=== PATIENT | male | born 1970 | race Caucasian/White ===

== ENCOUNTER 2020-06-28 14:11 | Outpatient (REF) | payer OTHER, SELFPAY | END 2020-06-28 14:12 | disposition home or self-care (01) | LOC: HO.LAB 14:11 | PROVIDERS: Visit Provider Internal Medicine | DX: Z20.822 Contact with and (suspected) exposure to COVID-19 (principal) | CPT/HCPCS: 36415; C9803; U0003 ==

== ENCOUNTER → 2020-07-06 08:42 | Outpatient (BNVA) | payer OTHER, SELFPAY | PROVIDERS: PCP Internal Medicine; Visit Provider Nurse Practitioner Gerontology ==

== ENCOUNTER 2020-08-09 13:19 | Outpatient (RCR) | payer OTHER, SELFPAY ==
[2021-06-14 10:04] LABS: MANUAL DIFF FLAG NO
[2021-06-14 10:07] LABS: Basophils Percent Auto 0.4 % (0-2); Eosinophils Absolute Auto 0.2 X10*3/uL (0.0-0.4); Eosinophils Percent Auto 2.3 % (0-4); Hematocrit 33.7 % (42.0-52.0); Hemoglobin 10.4 g/dl (14.0-18.0); Imm Gran Abs Auto 0.05 X10*3/uL (0.00-0.03); Imm Gran Pct Auto 0.7 % (0.0-0.4); Lymphocytes Absolute Auto 2.5 X10*3/uL (1.2-4.9); Lymphocytes Percent Auto 33.2 % (20-40); Mean Corpuscular HGB Conc 30.9 g/dl (31.0-36.0); Mean Corpuscular Hemoglobin 28.9 pg (27.0-33.0); Mean Corpuscular Volume 93.6 fL (80.0-98.0); Mean Platelet Volume 9.2 fL (9.4-12.4); Monocytes Absolute Auto 0.6 X10*3/uL (0.1-1.2); Monocytes Percent Auto 8.3 % (2-11); Neutrophils Absolute Auto 4.1 x10*3/uL (2.0-8.3); Neutrophils Percent Auto 55.1 % (45-73); Platelet Count 275 X10*3/uL (160-400); Red Cell Distribution Width 13.1 % (11.0-16.0); White Blood Count 7.4 X10*3/uL (4.8-10.8)
[2021-06-14 10:24] LABS: Alanine Aminotransferase 12 U/L (0-40); Albumin Level 3.5 g/dL (3.5-5.0); Alkaline Phosphatase 98 U/L (39-117); Anion Gap 12 (12-20); Aspartate Amino Transferase 13 U/L (5-37); Bilirubin Total 0.7 mg/dL (0.0-1.0); Blood Urea Nitrogen 23 mg/dL (9-16); Carbon Dioxide 28 mmol/L (22-29); Chloride 106 mmol/L (96-108); Cholesterol 133 mg/dL; Estimated Glomerular Filt Rate 27; Glucose Fasting 174 mg/dL (60-99); HDL Cholesterol 44 mg/dL; LDL Cholesterol Calculated 63 mg/dl; Potassium 4.6 mmol/L (3.3-5.1); Sodium 141 mmol/L (135-145); Total Protein 6.8 g/dL (6.5-8.0); Triglycerides 132 mg/dL
[2021-06-14 10:31] LABS: Estimated Average Glucose 203 mg/dL; Hemoglobin A1c % 8.7 %
[2021-06-14 10:44] LABS: TSH reflex Free T4 1.73 uIU/mL (0.32-4.0)
[2021-06-14 10:48] LABS: HBS Num1 1.52 mIU/mL (0-7.99); HIV AB/AG Nonreactive (Nonreactive); HIV Num 1 0.12 S/CO (0.00-0.99); Hepatitis B Surface Antigen Negative (Negative); ~HepC Num1 0.16 S/CO (0.00-0.79); ~Hepatitis B Surface Antibody NONREACTIVE (Nonreactive); ~Hepatitis C Antibody Nonreactive (Nonreactive)
[2021-06-14 10:53] LABS: Hepatitis B Core Antibody Nonreactive (Nonreactive)
[2021-06-14 12:42] LABS: Creatinine Urine 210.28 mg/dL
[2021-06-14 12:53] LABS: Appearance Urine CLEAR; Color Urine YELLOW; Glucose Urine UA 250 MG/DL (NEG); Leukocyte Esterase Urine NEG (NEG); Nitrite Urine NEG (NEG); PH 5.5 (5.0-8.0); Specific Gravity - Urine >= 1.030 (1.005-1.025); UACC Culture Trigger NO; Urine Blood NEG (NEG); Urine Ketones NEG (NEG); Urine Protein 2+ MG/DL (NEG-TRACE)
[2021-06-14 13:12] LABS: Squamous Epithelial Cell Urine 2+ /LPF
[2021-06-14 13:13] LABS: Amorphous Sediment Urine 1+ /LPF; Bacteria Urine 1+ /LPF
[2021-06-14 13:14] LABS: Hyaline Casts Urine 0-2 /LPF; RBC Urine 0 /HPF (0); WBC Urine 0-2 /HPF (0-4)
[2021-06-14 14:24] LABS: CT PCR NOT DETECTED (Not Detect.); NG PCR NOT DETECTED (Not Detect.)
[2021-06-15 08:38] LABS: HBc Num1 0.51 S/CO (0.00-0.79); Hepatitis A Antibody IgM 0.22 Index (0-0.79); ~Hepatitis A Antibody IgM Nonreactive (Nonreactive)
== END 2021-07-03 13:35 | disposition home or self-care (01) ==
LOC: HO.WCC 13:19
PROVIDERS: Nurse Practitioner Acute Care; PCP Internal Medicine; Visit Provider Surgery
DX: E11.621 Type 2 diabetes mellitus with foot ulcer (principal); L97.512 Non-pressure chronic ulcer of other part of right foot with fat layer exposed; J11.1 Influenza due to unidentified influenza virus with other respiratory manifestations; L53.9 Erythematous condition, unspecified; Z79.4 Long term (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 of insulin; Z79.2 Long term (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 of antibiotics; Z79.891 Long term (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 of opiate analgesic
CPT/HCPCS: 10061; 11042; 11043; 15275; 36415; 80053; 80061; 81001; 82043; 83036; 84443; 85025; 86704; 86706; 86709; 86803; 87071; 87077; 87186; 87205; 87340; 87389; 87491; 87591; 99212; 99213; Q4106

== ENCOUNTER 2020-12-05 09:36 | Outpatient (REF) | payer OTHER, SELFPAY ==
--- NOTE | ~2020-12-05 | XR_ITS ---
EXAMINATION: XR TOES, RIGHT CLINICAL INFORMATION: Fifth metatarsal head with question of osteomyelitis. COMPARISON: None TECHNIQUE: 3 views of the right toes were obtained. FINDINGS: Soft tissue swelling is noted overlying the region of the 5th metatarsal phalangeal joint with ulceration seen. No bony changes are seen to suggest osteomyelitis. Some mild degenerative changes present at the metatarsal phalangeal joint of the 3rd toe with some mild lateral subluxation. In addition, degenerative changes are present at the DIP joint of the 3rd digit as well with osteophytes. XR/XR toe RT min 2V IMPRESSION: 1. No evidence of osteomyelitis. 2. Degenerative changes present in the 3rd toe.
[2020-12-05 10:18] LABS: MANUAL DIFF FLAG NO
[2020-12-05 10:37] LABS: Estimated Average Glucose 189 mg/dL; Hemoglobin A1c % 8.2 %
[2020-12-05 10:40] LABS: Alanine Aminotransferase 16 U/L (0-40); Albumin Level 4.1 g/dL (3.5-5.0); Alkaline Phosphatase 99 U/L (39-117); Anion Gap 13 (12-20); Aspartate Amino Transferase 18 U/L (5-37); Bilirubin Total 0.7 mg/dL (0.0-1.0); Blood Urea Nitrogen 32 mg/dL (9-16); Calcium 9.3 mg/dL (8.4-10.2); Carbon Dioxide 25 mmol/L (22-29); Chloride 108 mmol/L (96-108); Cholesterol 170 mg/dL; Estimated Glomerular Filt Rate 24; Glucose Fasting 148 mg/dL (60-99); HDL Cholesterol 65 mg/dL; LDL Cholesterol Calculated 88 mg/dl; Potassium 5.7 mmol/L (3.3-5.1); Sodium 140 mmol/L (135-145); Total Protein 6.9 g/dL (6.5-8.0); Triglycerides 88 mg/dL
[2020-12-05 10:41] LABS: Basophils Absolute Auto 0.1 X10*3/uL (0.0-0.2); Basophils Percent Auto 0.6 % (0-2); Eosinophils Absolute Auto 0.2 X10*3/uL (0.0-0.4); Eosinophils Percent Auto 3.1 % (0-4); Hemoglobin 12.2 g/dl (14.0-18.0); Imm Gran Abs Auto 0.02 X10*3/uL (0.00-0.03); Imm Gran Pct Auto 0.3 % (0.0-0.4); Lymphocytes Absolute Auto 1.9 X10*3/uL (1.2-4.9); Lymphocytes Percent Auto 24.6 % (20-40); Mean Corpuscular HGB Conc 31.3 g/dl (31.0-36.0); Mean Corpuscular Hemoglobin 29.5 pg (27.0-33.0); Mean Corpuscular Volume 94.2 fL (80-98); Mean Platelet Volume 10.5 fL (9.4-12.4); Monocytes Absolute Auto 0.9 X10*3/uL (0.1-1.2); Monocytes Percent Auto 11.4 % (2-11); Neutrophils Absolute Auto 4.6 X10*3/uL (2.0-8.3); Platelet Count 252 X10*3/uL (160-400); Red Blood Count 4.14 X10*6/uL (4.60-5.80); Red Cell Distribution Width 12.7 % (11.0-16.0); White Blood Count 7.7 X10*3/uL (4.8-10.8)
[2020-12-05 11:05] LABS: TSH reflex Free T4 1.06 uIU/mL (0.32-4.0)
[2020-12-05 11:12] LABS: Glucose Urine UA 100 MG/DL (NEG); Leukocyte Esterase Urine NEG (NEG); Nitrite Urine NEG (NEG); PH 5.5 (5.0-8.0); Specific Gravity - Urine >= 1.030 (1.005-1.025); Urine Blood NEG (NEG); Urine Ketones NEG (NEG); Urine Protein 2+ MG/DL (NEG-TRACE)
[2020-12-05 11:18] LABS: Appearance Urine HAZY; Color Urine YELLOW
[2020-12-05 11:58] LABS: Creatinine Urine 290.84 mg/dL; Microalbum/Creatinine Ratio Ur 255.8 ug/mg cr
[2020-12-05 12:03] LABS: Amorphous Sediment Urine 2+ /LPF; Mucus Urine TRACE /LPF; RBC Urine 0 /HPF (0); Squamous Epithelial Cell Urine 2+ /LPF
[2020-12-05 15:14] LABS: C Reactive Protein 0.94 mg/dL (< or = 0.50)
[2020-12-06 08:16] LABS: LDL Cholesterol Direct 84 mg/dL (<100)
== END 2020-12-05 09:37 | disposition home or self-care (01) ==
LOC: HO.LAB 09:36
PROVIDERS: PCP Internal Medicine; Visit Provider Internal Medicine
DX: E11.22 Type 2 diabetes mellitus with diabetic chronic kidney disease (principal); I12.9 Hypertensive chronic kidney disease with stage 1 through stage 4 chronic kidney disease, or unspecified chronic kidney disease; N18.30 Chronic kidney disease, stage 3 unspecified; D63.1 Anemia in chronic kidney disease; E78.00 Pure hypercholesterolemia, unspecified; E66.9 Obesity, unspecified; E55.9 Vitamin D deficiency, unspecified
CPT/HCPCS: 36415; 73660; 80053; 80061; 81001; 82043; 82306; 83036; 83721; 84134; 84443; 85025; 86140

== ENCOUNTER 2021-01-10 12:47 | Outpatient (AMB) | payer OTHER, SELFPAY ==
--- NOTE | 2021-01-10 12:49 | A.OFFPC_ITS ---
Vital Signs 01/10/21 12:52 Height 5 ft 7 in Weight 236 lb BMI 36.9 BP 142/80 H Pulse 88 Pulse Source Pulse Oximeter Temp 96.6 F L Pulse Oximetry (%) 98 Oxygen Delivery Method Room Air HPI 6 weeks f/u depression, anxiety HPI Details Patient comes in today for his follow up visit States that he is still experiencing increased anxiety and feels depressed Thinks that his Rx is helping but feels it is still not enough; relates going through a lot of stressful situations lately He denies any headaches or dizziness Denies any chest pains, no SOB No nausea/vomiting, no abdominal pain No change in bowel habits noted He would also like to have his pain med Rx refilled today [facility] Medical History (Updated 09/04/23 @ 17:41 by Michael Garcia MD) Right foot ulcer Anxiety History of foot ulcer Obesity (BMI 30-39.9) Depression Rotator cuff arthropathy of left shoulder Vitamin D deficiency Allergic rhinitis Anemia Pure hypercholesterolemia Benign essential hypertension Diabetic polyneuropathy Type 2 diabetes mellitus with diabetic chronic kidney disease Erectile dysfunction Type 2 diabetes mellitus with hyperglycemia, with long-term current use of insulin Type 2 diabetes mellitus with diabetic polyneuropathy Type 2 diabetes mellitus with chronic kidney disease 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 LDL goal <70 Surgical History History of nasal surgery Family History Father Lung cancer Mother Hypertension Coronary artery disease CVD (cardiovascular disease) TIA (transient ischemic attack) Sister Diabetes Maternal Uncle Diabetes Other Mental health problem Social History Household Members: None Housing: Apartment Do you presently have visiting nurse or other home services: No Alcohol intake: current Alcohol intake frequency: holidays/special occasions only Patient Tobacco Use Status: Never used Tobacco e-Cigarette/Vaping Use: Never Used Second Hand Smoke Exposure: Yes service: No Current occupational status: unemployed Cognitive needs: No Hearing needs: No Vision needs: No Questionnaire PHQ-9 (HOL/HEY) Over the last 2 weeks, how often have you been bothered by any of the following problems? 1. Little interest or pleasure in doing things: several days 2. Feeling down, depressed, or hopeless: more than half the days 3. Trouble falling or staying asleep, or sleeping too much: not at all 4. Feeling tired or having little energy: not at all 5. Poor appetite or overeating: not at all 6. Feeling bad about yourself - or that you are a failure or have let yourself or your family down: more than half the days 7. Trouble concentrating on things, such as reading the newspaper or watching t elevision: not at all 8. Moving or speaking so slowly that other people could have noticed. Or the opposite - being so fidgety or restless that you have been moving around a lot more than usual: not at all 9. Thoughts that you would be better off or of hurting yourself in some way: not at all Total score: 5 Depression Screening Interpretation: Positive Depression Screening Follow-up: Existing condition and In treatment (dose adjustment) 52993 - PHQ-9 Billing: Yes Source: Developed by Drs. Zay Babb, Genesis Aiken, Tony Garcia and colleagues, with an educational phoenix from [employer]. Thrive Questionnaire Date Thrive assessed: 01/10/21 I am a: Patient What is your living situation today?: I have a steady place to live Within the past 12 months, did the food you bought not last and you didn't have the money to get more?: Never true Within the past 12 months, did you worry whether your food would run out before you got money to buy more?: Never true Do you have trouble paying for medicines?: No Do you have trouble getting transportation to medical appointments?: No Do you have trouble paying your heating and electricity bill?: No Do you have trouble taking care of your child, family member or friend?: No Do you have trouble with day-to-day activities such as bathing, preparing meals, shopping, managing finances, etc.?: No Are you currently unemployed and looking for a job?: No Are you interested in more education?: No Currently or been in a relationship where the following occur: no concerns reported AUDIT C Alcohol Use Questionnaire (AUDIT-C) 1. How often do you have a drink containing alcohol?: Monthly or less 2. How many drinks containing alcohol do you have on a typical day when you are drinking?: 1 or 2 3. How often do you have six or more drinks on one occasion?: Never Total Score: 1 Score Reviewed/Action Taken: Yes ANAHI-7 AMB Questionnaire ANAHI-7 Feeling nervous, anxious, or on edge: 0 = Not at all Not being able to stop or control worryin = Not at all Worrying too much about different things: 0 = Not at all Trouble relaxin = Not at all Being so restless that it is hard to sit still: 0 = Not at all Becoming easily annoyed or irritable: 0 = Not at all Feeling afraid as if something awful might happen: 0 = Not at all Total ANAHI-7 score (0-4 normal; 5-9 mild; 10-14 moderate; 15-21 severe): 0 Source: Developed by Drs. Zay Babb, Genesis Aiken, Tony Garcia and colleagues, with an educational phoenix from [employer]. Review of Systems Const Denies chills, Reports difficulty sleeping, Reports fatigue, Denies fever(s) and Denies headache(s) ENT Denies dysphagia, Denies dizziness, Denies headache(s), Denies neck pain, Denies odynophagia and Denies sore throat Card Denies chest pain, Denies palpitations and Denies dyspnea Resp Denies cough and Denies dyspnea GI Denies abdominal pain, Denies constipation, Denies dysphagia, Denies heartburn, Denies diarrhea, Denies nausea, Denies odynophagia and Denies vomiting Denies dysuria, Denies nocturia and Denies urinary frequency Musc Denies back pain and Denies neck pain Skin/Breast Denies rash Neuro Denies dizziness and Denies headache(s) Psych Reports anxiety (increasing) and Reports depression (increasing) Endo Reports fatigue and Denies palpitations Physical exam (Primary Care) Vital Signs: Last Vital Signs Temp 96.6 F L 01/10/21 12:52 Pulse 88 01/10/21 12:52 BP 142/80 H 01/10/21 12:52 Pulse Ox 98 01/10/21 12:52 Oxygen Delivery Method Room Air 01/10/21 12:52 BMI result Body Mass Index 36.9 Tobacco/Smoking Status: Tobacco use Status Tobacco use date assessed 01/10/21 01/10/21 12:56 Patient Tobacco Use Status Never used Tobacco 01/10/21 12:56 PHQ-9: Total score: 5 Depression Screening Interpretation: Positive Depression Screening Follow-up: Existing condition and In treatment (dose adjustment) Const General: no acute distress and alert HENMT Ears: TM's normal bilaterally and EAC's normal Throat: Yes posterior oropharynx normal and Yes tonsils normal (no TP congestion noted) Neck Neck: Yes no lymphadenopathy and Yes supple Thyroid: Thyroid normal Resp Auscultation: clear to auscultation bilaterally, no rales and no wheezes Cardio Rate: regular rate Rhythm: regular rhythm Heart sounds: no murmurs GI Palpation (GI): Soft to palpation and nontender Auscultation: normal bowel sounds General: Yes no CVA tenderness Back/Spine/Pelvis Back: no CVA tenderness Thoracic/Lumbar Spine: No lumbar spinal tenderness Skin Rashes: no rashes Extrem General: Yes no clubbing, cyanosis or edema Assessment and Plan Assessment & Plan (1) Diabetic polyneuropathy: Code(s): E11.42 - Type 2 diabetes mellitus with diabetic polyneuropathy Qualifiers: Diabetes mellitus type: type 2 Qualified Code(s): E11.42 - Type 2 diabetes mellitus with diabetic polyneuropathy Plan: Continue Oxycodone 5 mg 2 to 3 times a day ONLY as needed for severe pain - Rx refilled (2) Anxiety: Code(s): F41.9 - Anxiety disorder, unspecified Plan: Will increase his Citalopram to 40 mg QD Follow up with psychiatry as scheduled (3) Depression: Code(s): F32.9 - Major depressive disorder, single episode, unspecified Qualifiers: Depression Type: unspecified Qualified Code(s): F32.9 - Major depressive disorder, single episode, unspecified Plan: Will increase his Citalopram to 40 mg QD Follow up with psychiatry as scheduled Plan Follow up in 2 months Medications: Changed From citalopram 20 mg PO DAILY 30 tabs 2RF F41.9 - Anxiety disorder, unspecified, F32.9 - Major depressive disorder, single episode, unspecified To citalopram 40 mg PO DAILY 30 tabs 2RF 30 days F41.9 - Anxiety disorder, unspecified, F32.9 - Major depressive disorder, single episode, unspecified Refilled oxycodone 5 mg PO BID-TID PRN 84 tabs 0RF severe pain 28 days Coding Level of Care Code Est Pt Level 3 (03016) Diagnoses Diabetic polyneuropathy associated with type 2 diabetes mellitus E11.42 Diabetes mellitus type: type 2 Anxiety F41.9 Depression, unspecified depression type F32.9 Depression Type: unspecified Additional Codes PHQ-9 - 84124 - PHQ-9 Billing: Yes ([id number])
[2021-01-10 12:52] VITALS: BP 142/80; PULSE 88; TEMP 35.9; O2SAT 98; BMI 36.9
== END 2021-01-10 13:51 | disposition home or self-care (01) ==
LOC: HO.HMGH 12:47
PROVIDERS: PCP Internal Medicine; Visit Provider Internal Medicine
DX: E11.42 Type 2 diabetes mellitus with diabetic polyneuropathy (principal); F41.9 Anxiety disorder, unspecified; F32.9 Major depressive disorder, single episode, unspecified
CPT/HCPCS: 99499

== ENCOUNTER 2021-03-05 09:51 | Outpatient (REF) | payer OTHER, SELFPAY ==
[2021-03-05 11:19] LABS: Alanine Aminotransferase 17 U/L (0-40); Albumin Level 3.8 g/dL (3.5-5.0); Alkaline Phosphatase 109 U/L (39-117); Anion Gap 13 (12-20); Aspartate Amino Transferase 16 U/L (5-37); Bilirubin Total 0.3 mg/dL (0.0-1.0); Blood Urea Nitrogen 26 mg/dL (9-16); Calcium 9.3 mg/dL (8.4-10.2); Carbon Dioxide 26 mmol/L (22-29); Chloride 107 mmol/L (96-108); Cholesterol 170 mg/dL; Estimated Glomerular Filt Rate 29; Glucose Fasting 195 mg/dL (60-99); HDL Cholesterol 53 mg/dL; LDL Cholesterol Calculated 96 mg/dl; Potassium 5.6 mmol/L (3.3-5.1); Sodium 140 mmol/L (135-145); Total Protein 6.8 g/dL (6.5-8.0); Triglycerides 107 mg/dL
[2021-03-05 11:22] LABS: Vitamin D 25-OH Total 24.5 ng/mL (>30)
[2021-03-05 12:46] LABS: Appearance Urine CLEAR; Color Urine YELLOW; Glucose Urine UA >=1000 MG/DL (NEG); Leukocyte Esterase Urine NEG (NEG); Nitrite Urine NEG (NEG); Specific Gravity - Urine 1.025 (1.005-1.025); UACC Culture Trigger NO; Urine Blood NEG (NEG); Urine Ketones NEG (NEG); Urine Protein 2+ MG/DL (NEG-TRACE)
[2021-03-05 14:11] LABS: RBC Urine 0 /HPF (0); Squamous Epithelial Cell Urine 1+ /LPF; WBC Urine 0-2 /HPF (0-4)
== END 2021-03-05 09:52 | disposition home or self-care (01) ==
LOC: HO.LAB 09:51
PROVIDERS: Absent Provider Nurse Practitioner Gerontology; PCP Internal Medicine; Visit Provider Internal Medicine
DX: E11.22 Type 2 diabetes mellitus with diabetic chronic kidney disease (principal); I12.9 Hypertensive chronic kidney disease with stage 1 through stage 4 chronic kidney disease, or unspecified chronic kidney disease; N18.30 Chronic kidney disease, stage 3 unspecified; E55.9 Vitamin D deficiency, unspecified
CPT/HCPCS: 36415; 80053; 80061; 81001; 81003; 82306

== ENCOUNTER 2021-03-08 09:32 | Outpatient (REF) | payer OTHER, SELFPAY ==
[2021-03-08 11:26] LABS: Anion Gap 13 (12-20); Blood Urea Nitrogen 33 mg/dL (9-16); Calcium 9.1 mg/dL (8.4-10.2); Carbon Dioxide 25 mmol/L (22-29); Chloride 104 mmol/L (96-108); Estimated Glomerular Filt Rate 29; Glucose Random 333 mg/dL (60-115); Potassium 6.2 mmol/L (3.3-5.1); Sodium 136 mmol/L (135-145)
== END 2021-03-08 09:33 | disposition home or self-care (01) ==
LOC: HO.LAB 09:32
PROVIDERS: PCP Internal Medicine; Visit Provider Nurse Practitioner Gerontology
DX: E11.22 Type 2 diabetes mellitus with diabetic chronic kidney disease (principal); N18.32 Chronic kidney disease, stage 3b; Z79.4 Long term (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 of insulin
CPT/HCPCS: 36415; 80048

== ENCOUNTER 2021-03-20 14:03 | Emergency (ER) | payer OTHER, SELFPAY ==
[2021-03-20 14:51] VITALS: BP 183/94; PULSE 84; RESP 18; TEMP 37; O2SAT 99; BMI 36.8
[2021-03-20] MEDS: Lidocaine HCl 1 % MPF 5 ML VIAL SUBCUT (16:18)
--- NOTE | 2021-03-20 16:47 | ED.SKABFB ---
HPI - Skin/Abscess/Foreign Bdy General Chief complaint: Skin/Abscess/Foreign Body Stated complaint: cyst Time Seen by Provider: 03/20/21 16:06 Source: patient and family Mode of arrival: ambulatory Limitations: no limitations History of Present Illness complaint: abscess/boil Onset (ago): day(s) (Few days worse today) Location: face (Right cheek) Severity: severe Severity scale (1-10): >10 Quality: aching and constant Pain Consistency: constant Relieving factors: none Exacerbating factors: none Context: none Associated symptoms: denies other symptoms Treatments prior to arrival: attempted to drain pus at home Related Data Previous Rx's Medication Instructions Recorded amlodipine 10 mg tablet 10 mg PO DAILY 90 Days #90 tab 04/12/20 atorvastatin 80 mg tablet 80 mg PO DAILY 90 Days #90 tab 04/12/20 cholecalciferol (vitamin D3) 50 50 mcg PO DAILY 90 Days #90 cap 04/12/20 mcg (2,000 unit) capsule gabapentin 100 mg capsule 100 mg PO TID 30 Days #90 cap 04/12/20 pen needle, diabetic 32 gauge x 1 ea SUBCUT QID #120 ea 07/25/20 (BD Ultra-Fine Odette Pen Needle) citalopram 40 mg tablet 40 mg PO DAILY 30 Days #30 tab 01/10/21 dulaglutide 1.5 mg/0.5 mL 1.5 mg SUBCUT QWEEK 90 Days #6.5 ml 01/19/21 subcutaneous pen injector (Trulicity) insulin glargine 100 unit/mL (3 22 unit SUBCUT QPM 30 Days #15 ml 02/26/21 mL) subcutaneous pen (Lantus Solostar U-100 Insulin) insulin lispro 100 unit/mL See Rx Instructions SUBCUT TID 30 02/26/21 subcutaneous pen (Humalog Kwik Days #15 ml (U-100) Insulin) levofloxacin 500 mg tablet 500 mg PO DAILY #10 tab 02/27/21 lisinopril 20 mg tablet 20 mg PO DAILY #90 tab 03/08/21 oxycodone 5 mg tablet 5 mg PO BID-TID PRN 28 Days #84 tab 03/08/21 flash glucose sensor (FreeStyle 1 ea TOPICAL Q2W #2 kit 03/09/21 Lida 14 Day Sensor) acetaminophen 500 mg tablet 1,000 mg PO QID PRN #14 tab 03/20/21 (Tylenol Extra Strength) cephalexin 500 mg capsule 500 mg PO Q6H 10 Days #40 cap 03/20/21 doxycycline monohydrate 100 mg 100 mg PO BID 10 Days #20 cap 03/20/21 capsule ibuprofen 800 mg tablet 800 mg PO Q8H PRN #14 tab 03/20/21 oxycodone 5 mg tablet 5 mg PO Q6H PRN #14 tab 03/20/21 Allergies Allergy/AdvReac Type Severity Reaction Status Date / Time No Known Allergies Allergy Verified 02/27/21 16:08 Review of Systems Review of Systems: Constitutional : No Fever, No Chills, Cardiovascular : No Chest Pain, No SOB Respiratory : No Dyspnea Gastrointestinal : No abdominal pain Musculoskeletal : No Joint Swelling Skin : positive skin abscess with surrounding erythema, No skin laceration, No Foreign bodies, No rash Neuro : No Weakness, No Numbness/tingling Psych : No SI/HI/thoughts of self injury Yes all other systems are reviewed and are negative [facility] Past Medical History Attestation statement: The following information was validated with the patient. Medical History Allergic rhinitis Anemia Anemia Anxiety Benign essential hypertension Chronic kidney disease (CKD), stage III (moderate) Chronic kidney disease, stage 3 Depression Diabetic polyneuropathy Diarrhea Erectile dysfunction Essential hypertension History of foot ulcer 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 LDL goal <70 alf (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 of insulin Obesity (BMI 30-39.9) Pure hypercholesterolemia Right foot ulcer Rotator cuff arthropathy of left shoulder 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 Type 2 diabetes mellitus with hyperglycemia, with long-term current use of insulin Vitamin D deficiency Vitamin D deficiency Surgical History History of nasal surgery Family History Family History Father Lung cancer Mother Hypertension Coronary artery disease CVD (cardiovascular disease) TIA (transient ischemic attack) Sister Diabetes Maternal Uncle Diabetes Other Mental health problem Social History Social History Household Members: None Housing: Apartment Alcohol intake: current Alcohol intake frequency: holidays/special occasions only Patient Tobacco Use Status: Never used Tobacco Second Hand Smoke Exposure: Yes Advance Directives: No Advance Directives Information Provided: No service: No Current occupational status: unemployed Physical Exam Vital Signs: Vital Signs: Last Vital Signs Temp 98.6 F 03/20/21 14:51 Pulse 84 03/20/21 14:51 Resp 18 03/20/21 14:51 BP 183/94 H 03/20/21 14:51 Pulse Ox 99 03/20/21 14:51 Body Mass Index 36.8 vital signs have been reviewed as normal and appeared to be correct. Blood pressure hypertensive at 183/94. Heart rate normal. Respiration rate normal. Temperature normal. Oxygen saturation normal. Appearance: Alert. Oriented X3. No acute distress. Head: Normal external exam. Normocephalic. Atraumatic. Eyes: PERRLA. EOMI. Conjunctiva and sclera normal. Eyelids normal. ENT: Pharynx normal. Uvula midline. Moist mucous membranes. Neck: Normal inspection. Neck supple. FROM. CVS: Normal heart rate and rhythm. Respiratory: No respiratory distress. Painless inspiration. Skin: to right cheek patient patient has a moderate size abscess with surrounding erythema noted. No streaking/induration/foreign bodies noted. The rest of the Skin is warm and dry. Normal skin color. Normal skin turgor. No additional rashes/lesions/lacerations noted. Extremities: No lower extremity edema. Extremities exhibit normal range of motion. Extremities nontender. Neuro: Oriented X 3. No motor deficit. No sensory deficit. Reflexes normal. Normal steady gait. No focal neuro deficits noted. Vascular: + radial pulses/+ 2 distal pedal pulses/+2 dorsalis pedis b/l. Normal cap refill. No cyanosis noted to upper extremity nails and lower extremity toes nails. Course Course Course Narrative: Patient is now status post I&D of abscess to the right cheek. Patient tolerated procedure well. No complications. Will DC home with antibiotics and symptomatic treatment and referral to the [facility]ound [facility] and to follow up with primary care provider and to return if any new or worsening symptoms. Patient understands agrees with this plan. MDM - Skin/Abscess/Foreign Bdy Medical Records Attestation: I reviewed the patient's medical records. Procedures Abscess I/D Site: face Side (if applicable): right Local Anesthetic: lidocaine 1% Amount of anesthesia used (mL): 5 Technique: incised with blade Amount of fluid expressed (mL): 20 Sent for culture/gram staining?: No Irrigation: Yes Packing used?: none Complications: other (No complications patient tolerated procedure well) Discharge Plan Discharge Clinical Impression: Abscess of skin or subcutaneous tissue, Cellulitis Patient Disposition: Home, Self-Care Instructions: Cellulitis (ED), Abscess Incision and Drainage (DC), Warm Compress or Soak (ED) Prescriptions: New ibuprofen 800 mg tablet 800 mg PO Q8H PRN (Reason: pain) Qty: 14 RF: 0 acetaminophen [Tylenol Extra Strength] 500 mg tablet 1,000 mg PO QID PRN (Reason: fever or pain) Qty: 14 RF: 0 doxycycline monohydrate 100 mg capsule 100 mg PO BID 10 Days Qty: 20 RF: 0 cephalexin 500 mg capsule 500 mg PO Q6H 10 Days Qty: 40 RF: 0 oxycodone 5 mg tablet 5 mg PO Q6H PRN (Reason: pain) Qty: 14 RF: 0 No Action pen needle, diabetic [BD Ultra-Fine Odette Pen Needle] 32 gauge x 5/32 needle 1 ea subcut QID Qty: 120 RF: 11 Trulicity 1.5 mg/0.5 mL pen injector 1.5 mg subcut QWEEK 90 Days Qty: 6.5 RF: 1 Lantus Solostar U-100 Insulin 100 unit/mL (3 mL) insulin pen 22 unit subcut QPM 30 Days Qty: 15 RF: 6 insulin lispro [Humalog KwikPen Insulin] 100 unit/mL insulin pen See Rx Instructions subcut TID 30 Days Qty: 15 RF: 6 lisinopril 20 mg tablet 20 mg PO DAILY Qty: 90 RF: 1 oxycodone 5 mg tablet 5 mg PO BID-TID PRN (Reason: severe pain) 28 Days Qty: 84 RF: 0 FreeStyle Lida 14 Day Sensor Kit 1 ea topical Q2W Qty: 2 RF: 6 flu vacc [id number] 6mos up(PF) 60 mcg (15 mcg x 4)/0.5 mL syringe 0.5 ml IM ONCE Qty: 0.5 RF: 0 amlodipine 10 mg tablet 10 mg PO DAILY 90 Days Qty: 90 RF: 1 atorvastatin 80 mg tablet 80 mg PO DAILY 90 Days Qty: 90 RF: 1 cholecalciferol (vitamin D3) 50 mcg (2,000 unit) capsule 50 mcg PO DAILY 90 Days Qty: 90 RF: 1 gabapentin 100 mg capsule 100 mg PO TID 30 Days Qty: 90 RF: 3 citalopram 40 mg tablet 40 mg PO DAILY 30 Days Qty: 30 RF: 2 levofloxacin 500 mg tablet 500 mg PO DAILY Qty: 10 RF: 0 Referrals: [facility] [Provider Group] - 2 days Michael Garcia MD [Primary Care Provider] - 2 days Stand Alone Forms: Work/School Release Print Language: Persian
[2021-03-20] MEDS: oxyCODONE HCl Immed Release 5 MG TABLET PO (16:50)
== END 2021-03-20 17:08 | disposition home or self-care (01) ==
PROVIDERS: Emergency Provider Emergency Medicine; PCP Internal Medicine
DX: L02.01 Cutaneous abscess of face (principal); L03.211 Cellulitis of face; Z79.899 Other long term (current) drug therapy
CPT/HCPCS: 10060; 99283; 99284

== ENCOUNTER 2021-04-16 12:08 | Outpatient (REF) | payer OTHER, SELFPAY ==
[2021-04-16 14:13] LABS: Alanine Aminotransferase 14 U/L (0-40); Albumin Level 4.2 g/dL (3.5-5.0); Alkaline Phosphatase 102 U/L (39-117); Anion Gap 15 (12-20); Aspartate Amino Transferase 18 U/L (5-37); Bilirubin Total 0.5 mg/dL (0.0-1.0); Blood Urea Nitrogen 26 mg/dL (9-16); Calcium 9.8 mg/dL (8.4-10.2); Carbon Dioxide 27 mmol/L (22-29); Chloride 107 mmol/L (96-108); Estimated Glomerular Filt Rate 34; Glucose Random 43 mg/dL (60-115); Potassium 5.7 mmol/L (3.3-5.1); Sodium 143 mmol/L (135-145); Total Protein 7.3 g/dL (6.5-8.0)
== END 2021-04-16 12:09 | disposition home or self-care (01) ==
LOC: HO.LAB 12:08
PROVIDERS: PCP Internal Medicine; Visit Provider Internal Medicine
DX: N18.4 Chronic kidney disease, stage 4 (severe) (principal)
CPT/HCPCS: 36415; 80053

== ENCOUNTER 2021-05-16 18:39 | Inpatient (IN) | payer OTHER, SELFPAY ==
--- NOTE | ~2021-05-16 | XR_ITS ---
EXAMINATION: XR FOOT, RIGHT CLINICAL INFORMATION: Suspicion for osteomyelitis of the lateral. Small ulcer. COMPARISON: Right toe radiographs 12/05/2020 TECHNIQUE: AP, lateral, and oblique views of the right foot. FINDINGS: Bones of the midfoot are well aligned. No tarsal, metatarsal or phalangeal fracture. There is soft tissue swelling overlying the fifth MTP joint with some subcutaneous air consistent with reported ulcer. Adjacent cortical surfaces are intact. There are mild diffuse degenerative changes of the foot. Vascular calcifications noted. XR/XR foot RT 2V IMPRESSION: Ulcer lateral to the fifth MTP joint, however, there is no radiographic evidence to suggest osteomyelitis.
--- NOTE | ~2021-05-16 | NM_ITS ---
EXAMINATION: THREE-PHASE BONE SCAN. CLINICAL INFORMATION: Right foot ulcer. Rule out osteomyelitis COMPARISON: None TECHNIQUE: 37 mCi of 99m technetium MDP was injected intravenously and a three-phase bone scan of the feet was obtained. In addition a whole-body third phase was performed. FINDINGS: On first phase of bone scan there is mild increased activity seen in the right foot. On second phase of bone scan minimal blood pool activity seen in the right distal foot. On third phase bone scan there is no abnormal activity seen in the right distal foot corresponding to the ulcer seen along the dorsal aspect of fifth MTP joint. There is nonspecific mild activity seen along the proximal fourth and fifth metatarsal region, nonspecific which could be secondary to arthritis. On whole body bone scan no abnormal activity seen in the calvarium, entire spine, thoracic cavity, pelvis or the extremities. NM/NM bone 3 phase IMPRESSION: No abnormal metabolic activity seen along the distal fifth MTP joint to suspect any osteomyelitis at this time. There is mild increased perfusion and blood pool activity in the right foot likely edema or cellulitis.
--- NOTE | ~2021-05-16 | CT_ITS ---
EXAMINATION: CT ABDOMEN AND PELVIS WITHOUT CONTRAST CLINICAL INFORMATION: Diarrhea and fever COMPARISON: CT abdomen pelvis 02/19/2016 TECHNIQUE: Multidetector volumetric imaging was performed from the superior aspect of the liver through the pubic symphysis. Sagittal and coronal reformatted images were obtained on the technologist's workstation. This CT examination was performed using dose optimization techniques as appropriate, variously including the following: *Automated exposure control *Adjustment of mA and/or kV according to patient size (this includes techniques or standardized protocols for targeted exams where dose is matched to indication/reason for exam; i.e. extremities or head) *Use of iterative reconstruction technique DLP: 826 mGy-cm FINDINGS: LUNG BASES: The visualized lung bases are unremarkable. LIVER, GALLBLADDER, AND BILIARY TREE: The liver is normal in size, shape, and attenuation. No focal hepatic lesion or biliary ductal dilatation is present. The gallbladder is unremarkable with no evidence of radiopaque gallstones, gallbladder wall thickening, or obvious pericholecystic inflammatory changes. PANCREAS: Unremarkable. SPLEEN: Unremarkable. ADRENAL GLANDS: Unremarkable. KIDNEYS AND URETERS: The kidneys are normal in size, shape, and attenuation. A 2 mm punctate nonobstructing right lower pole calculus is present. No left-sided calculi are seen. 3 cysts are noted in the right kidney the largest at the upper pole measuring 3.2 cm. These require no further follow-up. No solid renal masses are present. No hydronephrosis, hydroureter, or ureteral calculi seen. No perinephric stranding. BLADDER: Unremarkable. GASTROINTESTINAL TRACT: The colon is filled with fluid but is not dilated and no wall thickening is seen. The small and large bowel are otherwise unremarkable. The appendix is unremarkable. ABDOMINAL WALL: No significant hernia is appreciated. LYMPH NODES: No retroperitoneal lymphadenopathy VASCULAR: Some minimal calcific aortic plaque without aneurysm. PELVIC VISCERA: There is mild BPH. Seminal vesicles appear normal. OSSEOUS STRUCTURES: Unremarkable. Some minimal degenerative changes present in the lower thoracic spine. CT/CT abdomen pelvis wo con IMPRESSION: 1. The colon is filled with fluid consistent with a history of diarrhea. No mucosal edema is seen and no obstruction is detected. 2. Incidental note made of tiny 2 mm punctate nonobstructing right renal calculus and benign right renal cysts which need no further follow-up. Fleischner guidelines were followed.
--- NOTE | ~2021-05-16 | XR_ITS ---
EXAMINATION: XR CHEST CLINICAL INFORMATION: Fever COMPARISON: 05/15/2011 TECHNIQUE: Frontal view of the chest was obtained. FINDINGS: No significant abnormality is noted involving the heart, lungs, mediastinum, bony thorax or soft tissues. XR/XR chest 1V IMPRESSION: Unremarkable examination.
[2021-05-16 19:46] VITALS: BP 130/88; BP 131/77; PULSE 106; RESP 20; TEMP 39.6; O2SAT 98; O2SAT 99; BMI 36.8
[2021-05-16 20:00] LABS: Glucose, Whole Blood 266 mg/dL (60-115)
--- NOTE | 2021-05-16 20:10 | ECG_ITS ---
Test Reason : WEAKNESS Blood Pressure : / mmHG Vent. Rate : 096 BPM Atrial Rate : 096 BPM P-R Int : 162 ms QRS Dur : 084 ms QT Int : 400 ms P-R-T Axes : 046 -19 054 degrees QTc Int : 505 ms Normal sinus rhythm Possible Left atrial enlargement Prolonged QT Abnormal ECG When compared with ECG of 15-MAY-2011 12:13, QT has lengthened Referred By: Lenore Solo Electronically Signed By:ALFREDO ALEXANDER
--- NOTE | 2021-05-16 20:13 | ED.FEVER ---
HPI - Fever General Chief Complaint: Fever Stated Complaint: general malaise Time Seen by Provider: 05/16/21 19:58 Source: patient Mode of arrival: ambulatory Limitations: no limitations History of Present Illness HPI Narrative: Patient comes to emergency room complaining of fever, chills, generalized weakness for about 5 days. Patient also complaining of nausea vomiting and diarrhea. Patient states he has decreased p.o. intake, feels dehydrated. Related Data Previous Rx's Medication Instructions Recorded atorvastatin 80 mg tablet 80 mg PO DAILY 90 Days #90 tab 04/12/20 gabapentin 100 mg capsule 100 mg PO TID 30 Days #90 cap 04/12/20 pen needle, diabetic 32 gauge x 1 ea SUBCUT QID #120 ea 07/25/20 (BD Ultra-Fine Odette Pen Needle) citalopram 40 mg tablet 40 mg PO DAILY 30 Days #30 tab 01/10/21 dulaglutide 1.5 mg/0.5 mL 1.5 mg (0.5 mL) SUBCUT QWEEK 90 01/19/21 subcutaneous pen injector Days #6.5 ml (Trulicity) insulin glargine 100 unit/mL (3 22 unit (0.22 mL) SUBCUT QPM 30 02/26/21 mL) subcutaneous pen (Lantus Days #15 ml Solostar U-100 Insulin) insulin lispro 100 unit/mL See Rx Instructions SUBCUT TID 30 02/26/21 subcutaneous pen (Humalog KwikPen Days #15 ml (U-100) Insulin) levofloxacin 500 mg tablet 500 mg PO DAILY #10 tab 02/27/21 lisinopril 20 mg tablet 20 mg PO DAILY #90 tab 03/08/21 flash glucose sensor (FreeStyle 1 ea TOPICAL Q2W #2 kit 03/09/21 Lida 14 Day Sensor) acetaminophen 500 mg tablet 1,000 mg PO QID PRN #14 tab 03/20/21 (Tylenol Extra Strength) doxycycline monohydrate 100 mg 100 mg PO BID 10 Days #20 cap 03/20/21 capsule ibuprofen 800 mg tablet 800 mg PO Q8H PRN #14 tab 03/20/21 oxycodone 5 mg tablet 5 mg PO Q6H PRN #14 tab 03/20/21 hydralazine 10 mg tablet 10 mg PO BID 30 Days #60 tab 04/16/21 amlodipine 10 mg tablet 10 mg PO DAILY #30 tab 04/27/21 cholecalciferol (vitamin D3) 50 50 mcg PO DAILY #30 cap 04/27/21 mcg (2,000 unit) capsule oxycodone 5 mg tablet 5 mg PO BID-TID PRN 28 Days #84 tab 05/07/21 Allergies Allergy/AdvReac Type Severity Reaction Status Date / Time No Known Allergies Allergy Verified 05/16/21 19:45 Review of Systems Review of Systems: Constitutional : No Weight loss, N complaining of fever, chills, fatigue and generalized malaise ENT/Mouth : No Hearing loss, No Ear Pain, No Nasal Congestion, No Sinus Pain, No Hoarseness, No sore throat, No Rhinorrhea, No Swallowing Difficulty Eyes: No Eye Pain, No Swelling, No Redness, No Foreign Body, No Discharge, No Vision Changes Cardiovascular : No Chest Pain, No SOB, No Dyspnea on Exertion, No Orthopnea, No Edema, No Palpitations Respiratory : No Cough, No Sputum, No Wheezing, No Smoke Exposure, No Dyspnea Gastrointestinal : Complaining of nausea, vomiting and diarrhea. No Constipation, No abdominal Pain, No Hematochezia, No Melena Genitourinary : no irregular bleeding, No Dysuria, No Urinary Frequency, No Hematuria, No Urinary Incontinence, No Urgency, No Flank Pain, No Urinary Flow Changes, No Hesitancy Musculoskeletal : No joint pain, No Myalgias, No Joint Swelling Skin : No Skin Lesions, No rash Neuro : No Weakness, No Numbness, No Paresthesias, No Loss of Consciousness, No Dizziness, No Headache Psych : No Anxiety/Panic, No Depression, No SI/HI/AH/VH, No Social Issues, Heme/Lymph: No Bruising, No Bleeding,No Lymphadenopathy Endocrine : No Polyuria, No Polydipsia, No Temperature Intolerance REPLACED BY [facility] Past Medical History Medical History Allergic rhinitis Anemia Anemia Anxiety Benign essential hypertension Chronic kidney disease (CKD), stage III (moderate) Chronic kidney disease, stage 3 Depression Diabetic polyneuropathy Diarrhea Erectile dysfunction Essential hypertension History of foot ulcer 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 LDL goal <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 Obesity (BMI 30-39.9) Pure hypercholesterolemia Right foot ulcer Rotator cuff arthropathy of left shoulder 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 Type 2 diabetes mellitus with hyperglycemia, with long-term current use of insulin Vitamin D deficiency Vitamin D deficiency Surgical History History of nasal surgery Family History Family History Father Lung cancer Mother Hypertension Coronary artery disease CVD (cardiovascular disease) TIA (transient ischemic attack) Sister Diabetes Maternal Uncle Diabetes Other Mental health problem Social History Social History Household Members: None Housing: Apartment Alcohol intake: current Alcohol intake frequency: holidays/special occasions only Patient Tobacco Use Status: Never used Tobacco Second Hand Smoke Exposure: Yes Advance Directives: No Advance Directives Information Provided: Yes service: No Current occupational status: unemployed Physical Exam Vital Signs: Vital Signs: Last Vital Signs Temp 103.0 F H 05/16/21 22:32 Pulse 91 05/16/21 22:32 Resp 18 05/16/21 22:32 BP 136/67 05/16/21 22:32 Pulse Ox 95 05/16/21 22:32 BMI result Body Mass Index 36.8 Const: Other: Appearance: Alert. Oriented X3. No acute distress. Eyes: Pupils equal, round and reactive to light. ENT: Pharynx normal. Neck: Normal inspection. Neck supple. No lymph nodes noted. No crepitus CVS: Normal heart rate and rhythm. Pulses normal. Normal S1 and S2 Respiratory: No respiratory distress. Breath sounds normal. No Wheezing. No rales Abdomen: Soft and nontender. No rigidity. No distention. good BS x4 Skin: Skin warm and clammy. Normal skin color. Normal skin turgor. Extremities: No lower extremity edema. No lower extremity edema. No Lacerations. No Rash Neuro: Oriented X 3. No motor deficit. No sensory deficit. Moving all extermities. No slurred speech. Course Course Course Narrative: Patient has been giving fluids. At this time, patient creatinine is elevated, lactic acid is also elevated, likely secondary to dehydration from vomiting and diarrhea. Patient likely having a viral syndrome. Patient has no URI symptoms, chest x-rays negative, urine is negative. Patient has no abdominal pain. At this time, antibiotics not recommended. Patient will be admitted to the hospital. Discussed with Dr. Schrader MDM - Fever Lab Data Result diagrams: 05/16/21 20:30 05/16/21 20:30 Labs: Lab Results 05/16/21 05/16/21 05/16/21 Range/Units 19:48 20:30 20:30 WBC 10.2 (4.8-10.8) X10*3/uL RBC 4.11 L (4.60-5.80) X10*6/uL Hgb 12.4 L (14.0-18.0) g/dl Hct 36.7 L (42.0-52.0) % MCV 89.3 (80.0-98.0) fL MCH 30.2 (27.0-33.0) pg MCHC 33.8 (31.0-36.0) g/dl RDW 12.5 (11.0-16.0) % Plt Count 132 L (160-400) X10*3/uL MPV 11.1 (9.4-12.4) fL Immature Gran % (Auto) 0.8 H (0.0-0.4) % Neut % (Auto) 83.3 H (45-73) % Lymph % (Auto) 9.5 L (20-40) % Ferry % (Auto) 6.2 (2-11) % Eos % (Auto) 0.0 (0-4) % Baso % (Auto) 0.2 (0-2) % Lymph # (Auto) 1.0 L (1.2-4.9) X10*3/uL Ferry # (Auto) 0.6 (0.1-1.2) X10*3/uL Eos # (Auto) 0.0 (0.0-0.4) X10*3/uL Baso # (Auto) 0.0 (0.0-0.2) X10*3/uL Abs Immat Gran (auto) 0.08 H (0.00-0.03) X10*3/uL Absolute Neuts (auto) 8.5 H (2.0-8.3) x10*3/uL Absolute Nucleated RBC 0.000 (0.0-0.012) X10*3/uL Nucleated RBC % (auto) 0.0 (0.0-0.2) /100WBC Sodium 129 L (135-145) mmol/L Potassium 4.1 D (3.3-5.1) mmol/L Chloride 99 (96-108) mmol/L Carbon Dioxide 16 L (22-29) mmol/L Anion Gap 18 (12-20) BUN 59 H (9-16) mg/dL Creatinine 4.95 H* (0.5-1.4) mg/dL Estim Creat Clear Calc 20.5 Estimated GFR 12 POC Glucose 266 H (60-115) mg/dL Random Glucose 331 H D (60-115) mg/dL Lactic Acid (0.5-2.0) mmol/L Calcium 8.6 D (8.4-10.2) mg/dL Total Bilirubin 0.5 (0.0-1.0) mg/dL Direct Bilirubin 0.3 (0.0-0.5) mg/dL AST 32 D (5-37) U/L ALT 17 (0-40) U/L Alkaline Phosphatase 62 D (39-117) U/L Troponin I High Sens (<3.5-35.0) ng/L Total Protein 6.7 (6.5-8.0) g/dL Albumin 3.7 (3.5-5.0) g/dL Lipase 9 (8-78) U/L Urine Color Urine Appearance Urine pH (5.0-8.0) Ur Specific Cecil (1.005-1.025) Urine Protein (NEG-TRACE) MG/DL Urine Glucose (UA) (NEG) MG/DL Urine Ketones (NEG) MG/DL Urine Blood (NEG) Urine Nitrite (NEG) Ur Leukocyte Esterase (NEG) Urine RBC (0) /HPF Urine WBC (0-4) /HPF Ur Squamous Epith Cells /LPF Amorphous Sediment /LPF Urine Bacteria /LPF Waxy Casts /LPF RBC Casts /LPF Urine Mucus /LPF Urine Yeast /HPF Urine Opiates Screen (Not Detect) Urine Fentanyl Screen (Not Detect) Ur Barbiturates Screen (Not Detect) Ur Phencyclidine Scrn (Not Detect) Ur Amphetamines Screen (Not Detect) U Benzodiazepines Scrn (Not Detect) Urine Cocaine Screen (Not Detect) U Marijuana (THC) Screen (Not Detect) COVID-19 ([facility]) (Negative) COVID-19 Clin Com 05/16/21 05/16/21 05/16/21 Range/Units 20:30 20:30 20:30 WBC (4.8-10.8) X10*3/uL RBC (4.60-5.80) X10*6/uL Hgb (14.0-18.0) g/dl Hct (42.0-52.0) % MCV (80.0-98.0) fL MCH (27.0-33.0) pg MCHC (31.0-36.0) g/dl RDW (11.0-16.0) % Plt Count (160-400) X10*3/uL MPV (9.4-12.4) fL Immature Gran % (Auto) (0.0-0.4) % Neut % (Auto) (45-73) % Lymph % (Auto) (20-40) % Ferry % (Auto) (2-11) % Eos % (Auto) (0-4) % Baso % (Auto) (0-2) % Lymph # (Auto) (1.2-4.9) X10*3/uL Ferry # (Auto) (0.1-1.2) X10*3/uL Eos # (Auto) (0.0-0.4) X10*3/uL Baso # (Auto) (0.0-0.2) X10*3/uL Abs Immat Gran (auto) (0.00-0.03) X10*3/uL Absolute Neuts (auto) (2.0-8.3) x10*3/uL Absolute Nucleated RBC (0.0-0.012) X10*3/uL Nucleated RBC % (auto) (0.0-0.2) /100WBC Sodium (135-145) mmol/L Potassium (3.3-5.1) mmol/L Chloride (96-108) mmol/L Carbon Dioxide (22-29) mmol/L Anion Gap (12-20) BUN (9-16) mg/dL Creatinine (0.5-1.4) mg/dL Estim Creat Clear Calc Estimated GFR POC Glucose (60-115) mg/dL Random Glucose (60-115) mg/dL Lactic Acid 2.4 H* (0.5-2.0) mmol/L Calcium (8.4-10.2) mg/dL Total Bilirubin (0.0-1.0) mg/dL Direct Bilirubin (0.0-0.5) mg/dL AST (5-37) U/L ALT (0-40) U/L Alkaline Phosphatase (39-117) U/L Troponin I High Sens 89.7 H (<3.5-35.0) ng/L Total Protein (6.5-8.0) g/dL Albumin (3.5-5.0) g/dL Lipase (8-78) U/L Urine Color Urine Appearance Urine pH (5.0-8.0) Ur Specific Cecil (1.005-1.025) Urine Protein (NEG-TRACE) MG/DL Urine Glucose (UA) (NEG) MG/DL Urine Ketones (NEG) MG/DL Urine Blood (NEG) Urine Nitrite (NEG) Ur Leukocyte Esterase (NEG) Urine RBC (0) /HPF Urine WBC (0-4) /HPF Ur Squamous Epith Cells /LPF Amorphous Sediment /LPF Urine Bacteria /LPF Waxy Casts /LPF RBC Casts /LPF Urine Mucus /LPF Urine Yeast /HPF Urine Opiates Screen (Not Detect) Urine Fentanyl Screen (Not Detect) Ur Barbiturates Screen (Not Detect) Ur Phencyclidine Scrn (Not Detect) Ur Amphetamines Screen (Not Detect) U Benzodiazepines Scrn (Not Detect) Urine Cocaine Screen (Not Detect) U Marijuana (THC) Screen (Not Detect) COVID-19 ([facility]) Negative (Negative) COVID-19 Clin Com See Note 05/16/21 05/16/21 Range/Units 22:50 22:50 WBC (4.8-10.8) X10*3/uL RBC (4.60-5.80) X10*6/uL Hgb (14.0-18.0) g/dl Hct (42.0-52.0) % MCV (80.0-98.0) fL MCH (27.0-33.0) pg MCHC (31.0-36.0) g/dl RDW (11.0-16.0) % Plt Count (160-400) X10*3/uL MPV (9.4-12.4) fL Immature Gran % (Auto) (0.0-0.4) % Neut % (Auto) (45-73) % Lymph % (Auto) (20-40) % Ferry % (Auto) (2-11) % Eos % (Auto) (0-4) % Baso % (Auto) (0-2) % Lymph # (Auto) (1.2-4.9) X10*3/uL Ferry # (Auto) (0.1-1.2) X10*3/uL Eos # (Auto) (0.0-0.4) X10*3/uL Baso # (Auto) (0.0-0.2) X10*3/uL Abs Immat Gran (auto) (0.00-0.03) X10*3/uL Absolute Neuts (auto) (2.0-8.3) x10*3/uL Absolute Nucleated RBC (0.0-0.012) X10*3/uL Nucleated RBC % (auto) (0.0-0.2) /100WBC Sodium (135-145) mmol/L Potassium (3.3-5.1) mmol/L Chloride (96-108) mmol/L Carbon Dioxide (22-29) mmol/L Anion Gap (12-20) BUN (9-16) mg/dL Creatinine (0.5-1.4) mg/dL Estim Creat Clear Calc Estimated GFR POC Glucose (60-115) mg/dL Random Glucose (60-115) mg/dL Lactic Acid (0.5-2.0) mmol/L Calcium (8.4-10.2) mg/dL Total Bilirubin (0.0-1.0) mg/dL Direct Bilirubin (0.0-0.5) mg/dL AST (5-37) U/L ALT (0-40) U/L Alkaline Phosphatase (39-117) U/L Troponin I High Sens (<3.5-35.0) ng/L Total Protein (6.5-8.0) g/dL Albumin (3.5-5.0) g/dL Lipase (8-78) U/L Urine Color YELLOW Urine Appearance TURBID Urine pH 5.5 (5.0-8.0) Ur Specific Cecil 1.025 (1.005-1.025) Urine Protein 2+ H (NEG-TRACE) MG/DL Urine Glucose (UA) 100 H (NEG) MG/DL Urine Ketones NEG (NEG) MG/DL Urine Blood 2+ H (NEG) Urine Nitrite NEG (NEG) Ur Leukocyte Esterase NEG (NEG) Urine RBC 1-4 (0) /HPF Urine WBC 0 (0-4) /HPF Ur Squamous Epith Cells 2+ /LPF Amorphous Sediment 1+ /LPF Urine Bacteria TRACE /LPF Waxy Casts 0-2 /LPF RBC Casts 0-2 /LPF Urine Mucus 2+ /LPF Urine Yeast 2+ /HPF Urine Opiates Screen Not Detected (Not Detect) Urine Fentanyl Screen Not Detected (Not Detect) Ur Barbiturates Screen Not Detected (Not Detect) Ur Phencyclidine Scrn Not Detected (Not Detect) Ur Amphetamines Screen Not Detected (Not Detect) U Benzodiazepines Scrn Not Detected (Not Detect) Urine Cocaine Screen Not Detected (Not Detect) U Marijuana (THC) Screen Not Detected (Not Detect) COVID-19 ([facility]) (Negative) COVID-19 Clin Com Discharge Plan Discharge Clinical Impression: Acute viral syndrome, Acute hyponatremia, Acute on chronic renal failure, Nausea vomiting and diarrhea Patient Disposition: Admitted As Inpatient Prescriptions: No Action pen needle, diabetic [BD Ultra-Fine Odette Pen Needle] 32 gauge x 5/32 needle 1 ea subcut QID Qty: 120 RF: 11 Trulicity 1.5 mg/0.5 mL pen injector 1.5 mg subcut QWEEK 90 Days Qty: 6.5 RF: 1 Lantus Solostar U-100 Insulin 100 unit/mL (3 mL) insulin pen 22 unit subcut QPM 30 Days Qty: 15 RF: 6 insulin lispro [Humalog KwikPen Insulin] 100 unit/mL insulin pen See Rx Instructions subcut TID 30 Days Qty: 15 RF: 6 lisinopril 20 mg tablet 20 mg PO DAILY Qty: 90 RF: 1 FreeStyle Lida 14 Day Sensor Kit 1 ea topical Q2W Qty: 2 RF: 6 amlodipine 10 mg tablet 10 mg PO DAILY Qty: 30 RF: 5 cholecalciferol (vitamin D3) 50 mcg (2,000 unit) capsule 50 mcg PO DAILY Qty: 30 RF: 5 oxycodone 5 mg tablet 5 mg PO BID-TID PRN (Reason: severe pain) 28 Days Qty: 84 RF: 0 ibuprofen 800 mg tablet 800 mg PO Q8H PRN (Reason: pain) Qty: 14 RF: 0 acetaminophen [Tylenol Extra Strength] 500 mg tablet 1,000 mg PO QID PRN (Reason: fever or pain) Qty: 14 RF: 0 doxycycline monohydrate 100 mg capsule 100 mg PO BID 10 Days Qty: 20 RF: 0 oxycodone 5 mg tablet 5 mg PO Q6H PRN (Reason: pain) Qty: 14 RF: 0 hydralazine 10 mg tablet 10 mg PO BID 30 Days Qty: 60 RF: 3 flu vacc [id number] 6mos up(PF) 60 mcg (15 mcg x 4)/0.5 mL syringe 0.5 ml IM ONCE Qty: 0.5 RF: 0 atorvastatin 80 mg tablet 80 mg PO DAILY 90 Days Qty: 90 RF: 1 gabapentin 100 mg capsule 100 mg PO TID 30 Days Qty: 90 RF: 3 citalopram 40 mg tablet 40 mg PO DAILY 30 Days Qty: 30 RF: 2 levofloxacin 500 mg tablet 500 mg PO DAILY Qty: 10 RF: 0
[2021-05-16 20:39] LABS: Basophils Percent Auto 0.2 % (0-2); Hematocrit 36.7 % (42.0-52.0); Hemoglobin 12.4 g/dl (14.0-18.0); Imm Gran Abs Auto 0.08 X10*3/uL (0.00-0.03); Imm Gran Pct Auto 0.8 % (0.0-0.4); Lymphocytes Percent Auto 9.5 % (20-40); MANUAL DIFF FLAG NO; Mean Corpuscular HGB Conc 33.8 g/dl (31.0-36.0); Mean Corpuscular Hemoglobin 30.2 pg (27.0-33.0); Mean Corpuscular Volume 89.3 fL (80.0-98.0); Mean Platelet Volume 11.1 fL (9.4-12.4); Monocytes Absolute Auto 0.6 X10*3/uL (0.1-1.2); Monocytes Percent Auto 6.2 % (2-11); Neutrophils Absolute Auto 8.5 x10*3/uL (2.0-8.3); Neutrophils Percent Auto 83.3 % (45-73); Platelet Count 132 X10*3/uL (160-400); Red Blood Count 4.11 X10*6/uL (4.60-5.80); Red Cell Distribution Width 12.5 % (11.0-16.0); White Blood Count 10.2 X10*3/uL (4.8-10.8)
[2021-05-16] MEDS: 0.9 % Sodium Chloride 1,000 ML 999 ML IVCONT ×3 (20:41→21:25)
[2021-05-16] MEDS: ondansetron HCL 4 MG/2 ML VIAL IVPUSH (20:43)
[2021-05-16 20:53] LABS: COVID-19 Test Negative (Negative)
[2021-05-16 20:54] LABS: Lactic Acid 2.4 mmol/L (0.5-2.0)
[2021-05-16 20:59] LABS: Anion Gap 18 (12-20); Blood Urea Nitrogen 59 mg/dL (9-16); Carbon Dioxide 16 mmol/L (22-29); Chloride 99 mmol/L (96-108); Creatinine Clr Calc Pharmacy 20.5; Estimated Glomerular Filt Rate 12; Potassium 4.1 mmol/L (3.3-5.1); Sodium 129 mmol/L (135-145)
[2021-05-16 21:00] LABS: Alanine Aminotransferase 17 U/L (0-40); Albumin Level 3.7 g/dL (3.5-5.0); Alkaline Phosphatase 62 U/L (39-117); Aspartate Amino Transferase 32 U/L (5-37); Bilirubin Direct 0.3 mg/dL (0.0-0.5); Bilirubin Total 0.5 mg/dL (0.0-1.0); Calcium 8.6 mg/dL (8.4-10.2); Glucose Random 331 mg/dL (60-115); Lipase 9 U/L (8-78); Total Protein 6.7 g/dL (6.5-8.0); Troponin-I High Sensitivity 89.7 ng/L (<3.5-35.0)
[2021-05-16] MEDS: Acetaminophen Oral Liquid 650 MG/20.3 ML SOLUTION PO (21:24)
[2021-05-16 21:36] VITALS: BP 173/71; PULSE 92; RESP 21; TEMP 39.5; O2SAT 96
[2021-05-16 22:32] VITALS: BP 136/67; PULSE 91; RESP 18; TEMP 39.4; O2SAT 95
[2021-05-16 22:37] LABS: Reflex Lactate? Lactic Acid Added
[2021-05-16 22:57] LABS: Appearance Urine TURBID; Color Urine YELLOW; Glucose Urine UA 100 MG/DL (NEG); Leukocyte Esterase Urine NEG (NEG); Nitrite Urine NEG (NEG); PH 5.5 (5.0-8.0); Specific Gravity - Urine 1.025 (1.005-1.025); UACC Culture Trigger NO; Urine Blood 2+ (NEG); Urine Ketones NEG (NEG); Urine Protein 2+ MG/DL (NEG-TRACE)
[2021-05-16 23:02] LABS: Mucus Urine 2+ /LPF; Red Blood Cell Casts Urine 0-2 /LPF; Squamous Epithelial Cell Urine 2+ /LPF; Waxy Casts Urine 0-2 /LPF
[2021-05-16 23:03] LABS: Amorphous Sediment Urine 1+ /LPF; Bacteria Urine TRACE /LPF; WBC Urine 0 /HPF (0-4)
[2021-05-16 23:12] LABS: Amphetamine Screen Urine Not Detected (Not Detect); Barbiturates, Urine Not Detected (Not Detect); Benzodiazepines Screen Urine Not Detected (Not Detect); Cannabinoid Screen Urine Not Detected (Not Detect); Cocaine Screen Urine Not Detected (Not Detect); Fentanyl, urine Not Detected (Not Detect); Opiate Screen Urine Not Detected (Not Detect); Phencyclidine Screen Urine Not Detected (Not Detect)
--- NOTE | 2021-05-16 23:47 | P.HPHOSP_ITS ---
History of Present Illness Date of Service: 05/16/21 Chief Complaint: not feeling well this is a 51-year-old male with an extensive past medical history that includes hypertension, diabetes, diabetic polyneuropathy, CKD, hyperlipidemia, vitamin-D deficiency, anemia, anxiety and depression presents to the hospital with complaints of generally not feeling well. patient reports that his symptoms started few days ago that include diarrhea, nausea, multiple episodes of vomiting, he also has had coughing but is improving, nonproductive, sneezing, but has no upper respiratory congestion, he is also complaining of chest pain when he has severe bouts of cough, he denies any abdominal pain, the diarrhea is nonbloody, he has no fever but has chills. He also has an ulcer on the right foot that he noticed is slightly more painful when he walks on it. He reports that he used to follow-up with wound clinic for the ulcer and was supposed to be non bearing on that foot and was placed in a boot but has not been compliant. Denies having any drainage from that foot. he reports that he has also not been eating or drinking well for the past few days due to the nausea and vomiting on arrival to the ED patient hemodynamically stable with a temp of 103.3, heart rate of 106, respiratory rate of 29, blood pressure of 131/77, satting 99% on room air Labs are significan for WBC count of 10.2, hemoglobin 12.4, hematocrit 36.7, ESR 33, sodium sodiums falsely low at 129 due to his glucose of 331, BUN of 5 9, creatinine 4.95 baseline around 2, lactic acid of 2.4, high sensitivity troponin of 89, CRP of 25.69, UA negative, UDS negative, COVID-19 negative, RSV and influenza pending foot xray shows and also lateral to the 5th MTP joint however there is no radiographic evidence to suggest osteomyelitis, chest x-ray negative abdominal pelvic CT shows the colon is filled with fluid consistent with his tory of diarrhea with no mucosal edema and no obstruction. 2 mm punctate nonobstructing right renal calculus and benign right renal cyst patient will be admitted for further management Review of Systems Review of Systems: Yes all other systems are reviewed and are negative [facility] Medical History Allergic rhinitis Anemia Anemia Anxiety Benign essential hypertension Chronic kidney disease (CKD), stage III (moderate) Chronic kidney disease, stage 3 Depression Diabetic polyneuropathy Diarrhea Erectile dysfunction Essential hypertension History of foot ulcer 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 LDL goal <70 intermediate (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 of insulin Obesity (BMI 30-39.9) Pure hypercholesterolemia Right foot ulcer Rotator cuff arthropathy of left shoulder 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 Type 2 diabetes mellitus with hyperglycemia, with long-term current use of insulin Vitamin D deficiency Vitamin D deficiency Family History Father Lung cancer Mother Hypertension Coronary artery disease CVD (cardiovascular disease) TIA (transient ischemic attack) Sister Diabetes Maternal Uncle Diabetes Other Mental health problem Surgical History History of nasal surgery Social History Household Members: None Housing: Apartment Do you presently have visiting nurse or other home services: No Alcohol intake: current Alcohol intake frequency: holidays/special occasions only Patient Tobacco Use Status: Never used Tobacco Second Hand Smoke Exposure: Yes Use of substances other than those prescribed or required for medical reasons: No Have you been hit, kicked, punched, or otherwise hurt by someone within the past year? If so, by whom?: No Do you feel safe in your current relationship?: No Current Relationship Is there a partner from a previous relationship who is making you feel unsafe now?: No Are you made to feel afraid or neglected: No Advance Directives: No Advance Directives Information Provided: Yes Do you have thoughts of harming others: None Do you have a plan to hurt others: No Plan Recently lost weight without trying: No service: No Current occupational status: unemployed Meds Allergies Allergy/AdvReac Type Severity Reaction Status Date / Time No Known Allergies Allergy Verified 05/16/21 19:45 Physical Exam Vital Signs and Narrative: Vital Signs: Last Vital Signs Temp 103.0 F H 05/16/21 22:32 Pulse 91 05/16/21 22:32 Resp 18 05/16/21 22:32 BP 136/67 05/16/21 22:32 Pulse Ox 95 12/01/21 22:32 BMI result Body Mass Index 36.8 Const: General: cooperative and no acute distress Orientation/consciousness: patient oriented x3 Eyes: General: appearance normal, both eyes and all related structures Pupils: Equal, round and reactive pupils present Resp: Effort & Inspection: normal respiratory effort Auscultation: clear to auscultation bilaterally Cardio: Rate: regular rate Rhythm: regular rhythm GI: Other: patient has no tenderness, rebound or guarding Palpation (GI): So ft to palpation Auscultation: normal bowel sounds Skin: General skin exam: no rashes or lesions noted Neuro: General: patient oriented x3 Cranial nerves: Yes Equal, round and reactive pupils present Cognition (Neuro): normal cognition Extrem: Other: right foot with erythema, edema, tenderness, warmth, a black ulcer at the base of the 5th toe Results Labs CBC and Chem 7: 05/16/21 20:30 05/16/21 20:30 Labs: Laboratory Results - last 24 hr 05/16/21 05/16/21 05/16/21 19:48 20:30 20:30 MCV 89.3 MCH 30.2 MCHC 33.8 RDW 12.5 Plt Count 132 L MPV 11.1 Immature Gran % (Auto) 0.8 H Neut % (Auto) 83.3 H Lymph % (Auto) 9.5 L Logan % (Auto) 6.2 Eos % (Auto) 0.0 Baso % (Auto) 0.2 Lymph # (Auto) 1.0 L Logan # (Auto) 0.6 Eos # (Auto) 0.0 Baso # (Auto) 0.0 Abs Immat Gran (auto) 0.08 H Absolute Neuts (auto) 8.5 H Absolute Nucleated RBC 0.000 Nucleated RBC % (auto) 0.0 Anion Gap 18 Estim Creat Clear Calc 20.5 Estimated GFR 12 POC Glucose 266 H Random Glucose 331 H D Lactic Acid Calcium 8.6 D Total Bilirubin 0.5 Direct Bilirubin 0.3 AST 32 D ALT 17 Alkaline Phosphatase 62 D Troponin I High Sens Total Protein 6.7 Albumin 3.7 Lipase 9 Urine Color Urine Appearance Urine pH Ur Specific [place] Urine Protein Urine Glucose (UA) Urine Ketones Urine Blood Urine Nitrite Ur Leukocyte Esterase Urine RBC Urine WBC Ur Squamous Epith Cells Amorphous Sediment Urine Bacteria Waxy Casts RBC Casts Urine Mucus Urine Yeast Urine Opiates Screen Urine Fentanyl Screen Ur Barbiturates Screen Ur Phencyclidine Scrn Ur Amphetamines Screen U Benzodiazepines Scrn Urine Cocaine Screen U Marijuana (THC) Screen COVID-19 ([facility]) COVID-19 Clin Com 05/16/21 05/16/21 05/16/21 20:30 20:30 20:30 MCV MCH MCHC RDW Plt Count MPV Immature Gran % (Auto) Neut % (Auto) Lymph % (Auto) Logan % (Auto) Eos % (Auto) Baso % (Auto) Lymph # (Auto) Logan # (Auto) Eos # (Auto) Baso # (Auto) Abs Immat Gran (auto) Absolute Neuts (auto) Absolute Nucleated RBC Nucleated RBC % (auto) Anion Gap Estim Creat Clear Calc Estimated GFR POC Glucose Random Glucose Lactic Acid 2.4 H* Calcium Total Bilirubin Direct Bilirubin AST ALT Alkaline Phosphatase Troponin I High Sens 89.7 H Total Protein Albumin Lipase Urine Color Urine Appearance Urine pH Ur Specific [place] Urine Protein Urine Glucose (UA) Urine Ketones Urine Blood Urine Nitrite Ur Leukocyte Esterase Urine RBC Urine WBC Ur Squamous Epith Cells Amorphous Sediment Urine Bacteria Waxy Casts RBC Casts Urine Mucus Urine Yeast Urine Opiates Screen Urine Fentanyl Screen Ur Barbiturates Screen Ur Phencyclidine Scrn Ur Amphetamines Screen U Benzodiazepines Scrn Urine Cocaine Screen U Marijuana (THC) Screen COVID-19 ([facility]) Negative COVID-19 Clin Com See Note 05/16/21 05/16/21 22:50 22:50 MCV MCH MCHC RDW Plt Count MPV Immature Gran % (Auto) Neut % (Auto) Lymph % (Auto) Logan % (Auto) Eos % (Auto) Baso % (Auto) Lymph # (Auto) Logan # (Auto) Eos # (Auto) Baso # (Auto) Abs Immat Gran (auto) Absolute Neuts (auto) Absolute Nucleated RBC Nucleated RBC % (auto) Anion Gap Estim Creat Clear Calc Estimated GFR POC Glucose Random Glucose Lactic Acid Calcium Total Bilirubin Direct Bilirubin AST ALT Alkaline Phosphatase Troponin I High Sens Total Protein Albumin Lipase Urine Color YELLOW Urine Appearance TURBID Urine pH 5.5 Ur Specific [place] 1.025 Urine Protein 2+ H Urine Glucose (UA) 100 H Urine Ketones NEG Urine Blood 2+ H Urine Nitrite NEG Ur Leukocyte Esterase NEG Urine RBC 1-4 Urine WBC 0 Ur Squamous Epith Cells 2+ Amorphous Sediment 1+ Urine Bacteria TRACE Waxy Casts 0-2 RBC Casts 0-2 Urine Mucus 2+ Urine Yeast 2+ Urine Opiates Screen Not Detected Urine Fentanyl Screen Not Detected Ur Barbiturates Screen Not Detected Ur Phencyclidine Scrn Not Detected Ur Amphetamines Screen Not Detected U Benzodiazepines Scrn Not Detected Urine Cocaine Screen Not Detected U Marijuana (THC) Screen Not Detected COVID-19 ([facility]) COVID-19 Clin Com Imaging Radiologist's Impressions: Impressions Chest X-Ray 05/16/21 20:37 IMPRESSION: Unremarkable examination. Foot X-Ray 05/16/21 21:52 IMPRESSION: Ulcer lateral to the fifth MTP joint, however, there is no radiographic evidence to suggest osteomyelitis. Assessment and Plan (1) Acute on chronic renal failure: Status: Acute (2) Nausea vomiting and diarrhea: Status: Acute (3) Cellulitis: Status: Acute (4) Sepsis: Status: Acute (5) Elevated erythrocyte sedimentation rate: Status: Acute (6) Diabetic foot ulcer: Status: Acute 51-year-old male with past medical history of CKD, hypertension, hyperlipidemia, diabetes, diabetic neuropathy presented to hospital with generally not feeling well found to have sepsis # sepsis - febrile, tachycardic, tachypneic - no leukocytosis - source most likely osteomyelitis versus cellulitis - x-ray of foot is negative, has elevated ESR and CRP with an ulcer at the base of the right foot - also has cellulitis of the right foot - will start him on broad-spectrum antibiotics - follow cultures - MRI of foot # diabetic foot ulcer - has a non draining right foot ulcer - x-ray foot is negative - has elevated ESR and CRP - will start patient on broad-spectrum antibiotics - will obtain MRI to rule out osteomyelitis # cellulitis of right foot - right foot erythema, tenderness, edema, and warmth - broad-spectrum antibiotics - follow cultures # Benjamin on CKD - most likely prerenal secondary to dehydration - patient on IV fluids - follow BMP # lactic acidosis - resolved with IV fluids - most likely secondary to acute infection # nausea vomiting and diarrhea - CT abdomen negative - most likely viral gastritis - supportive measures - C diff pending # hypertension - stable - will continue amlodipine, hold lisinopril given BENJAMIN # diabetes - hold Trulicity - continue home insulin - sliding scale insulin added - diabetic diet DVT prophylaxis: Heparin Quality Stroke Does the patient have a stroke diagnosis?: No VTE Prior VTE?: No VTE Risk Level:: Medical - moderate - high VTE Device Contraindication: Treatment Not Indicated VTE Drug Contraindication: N/A - Med Ordered
[2021-05-17 01:09] LABS: C Reactive Protein 25.69 mg/dL (< or = 0.50)
[2021-05-17 01:36] LABS: Erythrocyte Sedimentation Rate 33 MM/HR (0-15)
[2021-05-17] MEDS: cefEPime HCl 1 GM in 0.9 % Sodium Chloride 50 ML IV (02:09)
[2021-05-17] MEDS: Sodium Chloride 0.45 % 1,000 ML 100 ML IVCONT (02:28)
[2021-05-17] MEDS: vancomycin HCL 1,500 MG in 0.9 % Sodium Chloride 500 ML 333.33 MG IV (02:29)
[2021-05-17 04:00] VITALS: BP 149/73; PULSE 85; RESP 17; TEMP 36.9; O2SAT 94
[2021-05-17 05:03] LABS: Glucose, Whole Blood 373 mg/dL (60-115)
[2021-05-17 05:30] VITALS: TEMP 37.8
[2021-05-17] MEDS: ondansetron HCL 4 MG/2 ML VIAL IVPUSH (06:08)
[2021-05-17 06:12] LABS: Influenza A PCR POSITIVE (Negative); Influenza B PCR NEGATIVE (Negative); Resp Syncy Virus RNA Qual PCR NEGATIVE (Negative); SARS COV2 PCR INHOUSE NEGATIVE (Negative)
[2021-05-17 07:09] LABS: CDiff Gene PCR NEGATIVE (Negative)
--- NOTE | 2021-05-17 07:22 | PHA.MEDREC ---
Pharmacy Consult ? Medication Reconciliation Pharmacy has reviewed the medication reconciliation completed by Kirt sumner. Gabapentin is not on the PDMP or claim history. Patient also reports he is not taking it. Patient also reports he is no taking hydralazine. Karen Montgomery, PharmD
[2021-05-17 07:29] LABS: Hematocrit 30.7 % (42.0-52.0); Hemoglobin 10.2 g/dl (14.0-18.0); Imm Gran Abs Auto 0.02 X10*3/uL (0.00-0.03); Imm Gran Pct Auto 0.4 % (0.0-0.4); Lymphocytes Absolute Auto 0.3 X10*3/uL (1.2-4.9); Lymphocytes Percent Auto 5.3 % (20-40); MANUAL DIFF FLAG SCAN; Mean Corpuscular HGB Conc 33.2 g/dl (31.0-36.0); Mean Corpuscular Volume 90.3 fL (80.0-98.0); Mean Platelet Volume 11.1 fL (9.4-12.4); Monocytes Absolute Auto 0.1 X10*3/uL (0.1-1.2); Monocytes Percent Auto 2.3 % (2-11); Neutrophils Absolute Auto 4.3 x10*3/uL (2.0-8.3); Platelet Count 80 X10*3/uL (160-400); Red Cell Distribution Width 12.9 % (11.0-16.0); SCAN SMEAR FLAG 1; White Blood Count 4.7 X10*3/uL (4.8-10.8)
[2021-05-17 07:37] VITALS: BP 127/64; PULSE 95; RESP 22; TEMP 37.1; O2SAT 97
[2021-05-17 07:38] LABS: Glucose, Whole Blood 416 mg/dL (60-115)
[2021-05-17 07:48] LABS: SLIDE REVIEW VERIFIED
[2021-05-17 08:03] LABS: Anion Gap 18 (12-20); Blood Urea Nitrogen 62 mg/dL (9-16); Calcium 7.2 mg/dL (8.4-10.2); Carbon Dioxide 11 mmol/L (22-29); Chloride 106 mmol/L (96-108); Creatinine Clr Calc Pharmacy 20.6; Estimated Glomerular Filt Rate 13; Glucose Random 478 mg/dL (60-115); Potassium 4.1 mmol/L (3.3-5.1); Sodium 131 mmol/L (135-145)
[2021-05-17] MEDS: Insulin Glargine,Hum.rec.anlog 100 UNIT/ML 10 ML VIAL 15 UNIT SUBCUT (08:06)
[2021-05-17] MEDS: Insulin Lispro 100 UNIT/ML 3 ML VIAL SUBCUT ×4 (08:08→21:03)
[2021-05-17] MEDS: Heparin Sodium,Porcine 5,000 UNIT/ML VIAL 5000 UNIT SUBCUT ×2 (08:08→21:02)
--- NOTE | 2021-05-17 09:31 | P.PNIM_ITS ---
Subjective Subjective Date of Service: 05/17/21 Interval History: the patient was seen and evaluated this morning Laying in bed, complaining of mild nausea Denies any fever, chills or shortness of breath No reported other overnight events. Systemic review: No fever, chills or weakness No chest pain, palpitation No shortness of breath or coughing No abdominal pain but reporting some nausea No urinary symptoms The right lower extremity erythema and pain Physical Exam Vital Signs: Vital Signs: Last Vital Signs Temp 98.8 F 05/17/21 07:37 Pulse 95 05/17/21 07:37 Resp 22 H 05/17/21 07:37 BP 127/64 05/17/21 07:37 Pulse Ox 97 05/17/21 07:37 BMI result Body Mass Index 36.8 Const: Other: Constitutional : Alert, oriented, not in distress Neck : Normal inspection, Supple Cardiovascular : RRR, S1 S2, no lower extremity edema Respiratory : Good bilateral air entry, no crackles, wheezes or rhonchi Gastrointestinal: soft, lax, Normal bowel sounds, Non tender Skin : Warm, Dry, left leg and foot mild erythema and warmth, left small toe lateral dry wound with no opening or drainage, mild tenderness Neurological : Alert & oriented x3, No focal deficit Objective Data Active Medications Acetaminophen (Acetaminophen 325 Mg Tablet) 650 mg PO Q6H PRN PRN Reason: Pain, Mild (Pain Scale 1-3) Amlodipine Besylate (Amlodipine Besylate 10 Mg Tablet) 10 mg PO DAILY [facility]; Pro tocol Last Admin: 05/17/21 08:09 Dose: Not Given Documented by: GINETTE Non-Admin Reason: Patient Refused Atorvastatin Calcium (Atorvastatin Calcium 80 Mg Tablet) 80 mg PO DAILY [facility] Last Admin: 05/17/21 08:09 Dose: Not Given Documented by: GINETTE Non-Admin Reason: Patient Refused Dextrose (Dextrose 50 % 25 Gm/50 Ml Vial) 25 gm IVPUSH Q15M PRN; Protocol PRN Reason: per Hypoglycemia Standing Ord. Glucose (Glucose Gel 15 Gm Gel..Gram.) 15 gm PO Q15M PRN; Protocol PRN Reason: per Hypoglycemia Standing Ord. Heparin Sodium (Porcine) (Heparin Sodium,Porcine 5,000 Unit/Ml Vial) 5,000 unit SUBCUT Q12H [facility] Last Admin: 05/17/21 08:08 Dose: 5,000 unit Documented by: GINETTE Vancomycin HCl 1,500 mg/ (Sodium Chloride) 500 mls @ 333.333 mls/hr IV Q12H [facility] Piperacillin Sod/Tazobactam (Sod 2.25 gm/ Sodium Chloride) 50 mls @ 100 mls/hr IV Q6H [facility] Sodium Bicarbonate 150 meq/ (Dextrose) 1,000 mls @ 125 mls/hr IV .Q8H [facility] Insulin Glargine (Insulin Glargine,Hum.Rec.Anlog 100 Unit/Ml 10 Ml Vial) 22 unit SUBCUT BEDTIME ROSS Insulin Human Lispro (Insulin Lispro 100 Unit/Ml 3 Ml Vial) 0 unit SUBCUT QIDACHS [facility]; Protocol Last Admin: 05/17/21 08:08 Dose: 10 unit Documented by: GINETTE Ondansetron HCl (Ondansetron Hcl 4 Mg/2 Ml Vial) 4 mg IVPUSH Q8H PRN PRN Reason: Nausea and Vomiting Last Admin: 05/17/21 06:08 Dose: 4 mg Documented by: OTTONIEL Oxycodone HCl (Oxycodone Hcl Immed Release 5 Mg Tablet) 5 mg PO Q6H PRN PRN Reason: Pain, Severe (Pain Scale 7-10) Pharmacy Consult (Consult Rx Vancomycin Dosing) 1 each MISCELLANE DAILY PRN PRN Reason: Consult order Pharmacy Consult (Consult Rx Perform Med Rec) 1 each MISCELLANE ONCE PRN PRN Reason: Consult order Sodium Chloride (0.9 % Sodium Chloride Flush 3 Ml Syringe) 3 ml IVFLUSH QSHIFT [facility] Last Admin: 05/17/21 08:09 Dose: Not Given Documented by: GINETTE Non-Admin Reason: IV Running Labs CBC & Chem 7: 05/17/21 07:09 05/17/21 07:09 Labs: Laboratory Results - last 24 hr 05/16/21 05/16/21 05/16/21 19:48 20:30 20:30 MCV 89.3 MCH 30.2 MCHC 33.8 RDW 12.5 Plt Count 132 L MPV 11.1 Immature Gran % (Auto) 0.8 H Neut % (Auto) 83.3 H Lymph % (Auto) 9.5 L [place] % (Auto) 6.2 Eos % (Auto) 0.0 Baso % (Auto) 0.2 Lymph # (Auto) 1.0 L [place] # (Auto) 0.6 Eos # (Auto) 0.0 Baso # (Auto) 0.0 Abs Immat Gran (auto) 0.08 H Absolute Neuts (auto) 8.5 H Absolute Nucleated RBC 0.000 Nucleated RBC % (auto) 0.0 Smear Tech's Comments ESR Anion Gap 18 Estim Creat Clear Calc 20.5 Estimated GFR 12 POC Glucose 266 H Random Glucose 331 H D Lactic Acid Lactic Acid Fup @ 2Hr Calcium 8.6 D Total Bilirubin 0.5 Direct Bilirubin 0.3 AST 32 D ALT 17 Alkaline Phosphatase 62 D Troponin I High Sens C-Reactive Protein 25.69 H Total Protein 6.7 Albumin 3.7 Lipase 9 Urine Color Urine Appearance Urine pH Ur Specific [place] Urine Protein Urine Glucose (UA) Urine Ketones Urine Blood Urine Nitrite Ur Leukocyte Esterase Urine RBC Urine WBC Ur Squamous Epith Cells Amorphous Sediment Urine Bacteria Waxy Casts RBC Casts Urine Mucus Urine Yeast Urine Opiates Screen Urine Fentanyl Screen Ur Barbiturates Screen Ur Phencyclidine Scrn Ur Amphetamines Screen U Benzodiazepines Scrn Urine Cocaine Screen U Marijuana (THC) Screen C. difficile Tox B Gene COVID-19 ([facility]) COVID-19 Clin Com Influenza Type A (PCR) Influenza Type B (PCR) RSV RNA Qual (PCR) SARS-CoV-2 RNA (RT-PCR) 05/16/21 05/16/21 05/16/21 20:30 20:30 20:30 MCV MCH MCHC RDW Plt Count MPV Immature Gran % (Auto) Neut % (Auto) Lymph % (Auto) [place] % (Auto) Eos % (Auto) Baso % (Auto) Lymph # (Auto) [place] # (Auto) Eos # (Auto) Baso # (Auto) Abs Immat Gran (auto) Absolute Neuts (auto) Absolute Nucleated RBC Nucleated RBC % (auto) Smear Tech's Comments ESR Anion Gap Estim Creat Clear Calc Estimated GFR POC Glucose Random Glucose Lactic Acid 2.4 H* Lactic Acid Fup @ 2Hr Calcium Total Bilirubin Direct Bilirubin AST ALT Alkaline Phosphatase Troponin I High Sens 89.7 H C-Reactive Protein Total Protein Albumin Lipase Urine Color Urine Appearance Urine pH Ur Specific [place] Urine Protein Urine Glucose (UA) Urine Ketones Urine Blood Urine Nitrite Ur Leukocyte Esterase Urine RBC Urine WBC Ur Squamous Epith Cells Amorphous Sediment Urine Bacteria Waxy Casts RBC Casts Urine Mucus Urine Yeast Urine Opiates Screen Urine Fentanyl Screen Ur Barbiturates Screen Ur Phencyclidine Scrn Ur Amphetamines Screen U Benzodiazepines Scrn Urine Cocaine Screen U Marijuana (THC) Screen C. difficile Tox B Gene COVID-19 ([facility]) Negative COVID-19 Clin Com See Note Influenza Type A (PCR) Influenza Type B (PCR) RSV RNA Qual (PCR) SARS-CoV-2 RNA (RT-PCR) 05/16/21 05/16/21 05/16/21 22:50 22:50 23:40 MCV MCH MCHC RDW Plt Count MPV Immature Gran % (Auto) Neut % (Auto) Lymph % (Auto) [place] % (Auto) Eos % (Auto) Baso % (Auto) Lymph # (Auto) [place] # (Auto) Eos # (Auto) Baso # (Auto) Abs Immat Gran (auto) Absolute Neuts (auto) Absolute Nucleated RBC Nucleated RBC % (auto) Smear Tech's Comments ESR Anion Gap Estim Creat Clear Calc Estimated GFR POC Glucose Random Glucose Lactic Acid Lactic Acid Fup @ 2Hr 1.0 Calcium Total Bilirubin Direct Bilirubin AST ALT Alkaline Phosphatase Troponin I High Sens C-Reactive Protein Total Protein Albumin Lipase Urine Color YELLOW Urine Appearance TURBID Urine pH 5.5 Ur Specific [place] 1.025 Urine Protein 2+ H Urine Glucose (UA) 100 H Urine Ketones NEG Urine Blood 2+ H Urine Nitrite NEG Ur Leukocyte Esterase NEG Urine RBC 1-4 Urine WBC 0 Ur Squamous Epith Cells 2+ Amorphous Sediment 1+ Urine Bacteria TRACE Waxy Casts 0-2 RBC Casts 0-2 Urine Mucus 2+ Urine Yeast 2+ Urine Opiates Screen Not Detected Urine Fentanyl Screen Not Detected Ur Barbiturates Screen Not Detected Ur Phencyclidine Scrn Not Detected Ur Amphetamines Screen Not Detected U Benzodiazepines Scrn Not Detected Urine Cocaine Screen Not Detected U Marijuana (THC) Screen Not Detected C. difficile Tox B Gene COVID-19 ([facility]) COVID-19 Clin Com Influenza Type A (PCR) Influenza Type B (PCR) RSV RNA Qual (PCR) SARS-CoV-2 RNA (RT-PCR) 05/17/21 05/17/21 05/17/21 04:58 05:24 06:08 MCV MCH MCHC RDW Plt Count MPV Immature Gran % (Auto) Neut % (Auto) Lymph % (Auto) [place] % (Auto) Eos % (Auto) Baso % (Auto) Lymph # (Auto) [place] # (Auto) Eos # (Auto) Baso # (Auto) Abs Immat Gran (auto) Absolute Neuts (auto) Absolute Nucleated RBC Nucleated RBC % (auto) Smear Tech's Comments ESR Anion Gap Estim Creat Clear Calc Estimated GFR POC Glucose 373 H* Random Glucose Lactic Acid Lactic Acid Fup @ 2Hr Calcium Total Bilirubin Direct Bilirubin AST ALT Alkaline Phosphatase Troponin I High Sens C-Reactive Protein Total Protein Albumin Lipase Urine Color Urine Appearance Urine pH Ur Specific [place] Urine Protein Urine Glucose (UA) Urine Ketones Urine Blood Urine Nitrite Ur Leukocyte Esterase Urine RBC Urine WBC Ur Squamous Epith Cells Amorphous Sediment Urine Bacteria Waxy Casts RBC Casts Urine Mucus Urine Yeast Urine Opiates Screen Urine Fentanyl Screen Ur Barbiturates Screen Ur Phencyclidine Scrn Ur Amphetamines Screen U Benzodiazepines Scrn Urine Cocaine Screen U Marijuana (THC) Screen C. difficile Tox B Gene NEGATIVE COVID-19 ([facility]) COVID-19 Clin Com Influenza Type A (PCR) POSITIVE A Influenza Type B (PCR) NEGATIVE RSV RNA Qual (PCR) NEGATIVE SARS-CoV-2 RNA (RT-PCR) NEGATIVE 05/17/21 05/17/21 05/17/21 07:09 07:09 07:33 MCV 90.3 MCH 30.0 MCHC 33.2 RDW 12.9 Plt Count 80 L D MPV 11.1 Immature Gran % (Auto) 0.4 Neut % (Auto) 92.0 H Lymph % (Auto) 5.3 L [place] % (Auto) 2.3 Eos % (Auto) 0.0 Baso % (Auto) 0.0 Lymph # (Auto) 0.3 L [place] # (Auto) 0.1 Eos # (Auto) 0.0 Baso # (Auto) 0.0 Abs Immat Gran (auto) 0.02 Absolute Neuts (auto) 4.3 Absolute Nucleated RBC 0.000 Nucleated RBC % (auto) 0.0 Smear Tech's Comments VERIFIED ESR Anion Gap 18 Estim Creat Clear Calc 20.6 Estimated GFR 13 POC Glucose 416 H* Random Glucose 478 H* Lactic Acid Lactic Acid Fup @ 2Hr Calcium 7.2 L D Total Bilirubin Direct Bilirubin AST ALT Alkaline Phosphatase Troponin I High Sens C-Reactive Protein Total Protein Albumin Lipase Urine Color Urine Appearance Urine pH Ur Specific [place] Urine Protein Urine Glucose (UA) Urine Ketones Urine Blood Urine Nitrite Ur Leukocyte Esterase Urine RBC Urine WBC Ur Squamous Epith Cells Amorphous Sediment Urine Bacteria Waxy Casts RBC Casts Urine Mucus Urine Yeast Urine Opiates Screen Urine Fentanyl Screen Ur Barbiturates Screen Ur Phencyclidine Scrn Ur Amphetamines Screen U Benzodiazepines Scrn Urine Cocaine Screen U Marijuana (THC) Screen C. difficile Tox B Gene COVID-19 ([facility]) COVID-19 Clin Com Influenza Type A (PCR) Influenza Type B (PCR) RSV RNA Qual (PCR) SARS-CoV-2 RNA (RT-PCR) 05/17/21 20:30 MCV MCH MCHC RDW Plt Count MPV Immature Gran % (Auto) Neut % (Auto) Lymph % (Auto) [place] % (Auto) Eos % (Auto) Baso % (Auto) Lymph # (Auto) [place] # (Auto) Eos # (Auto) Baso # (Auto) Abs Immat Gran (auto) Absolute Neuts (auto) Absolute Nucleated RBC Nucleated RBC % (auto) Smear Tech's Comments ESR 33 H Anion Gap Estim Creat Clear Calc Estimated GFR POC Glucose Random Glucose Lactic Acid Lactic Acid Fup @ 2Hr Calcium Total Bilirubin Direct Bilirubin AST ALT Alkaline Phosphatase Troponin I High Sens C-Reactive Protein Total Protein Albumin Lipase Urine Color Urine Appearance Urine pH Ur Specific [place] Urine Protein Urine Glucose (UA) Urine Ketones Urine Blood Urine Nitrite Ur Leukocyte Esterase Urine RBC Urine WBC Ur Squamous Epith Cells Amorphous Sediment Urine Bacteria Waxy Casts RBC Casts Urine Mucus Urine Yeast Urine Opiates Screen Urine Fentanyl Screen Ur Barbiturates Screen Ur Phencyclidine Scrn Ur Amphetamines Screen U Benzodiazepines Scrn Urine Cocaine Screen U Marijuana (THC) Screen C. difficile Tox B Gene COVID-19 ([facility]) COVID-19 Clin Com Influenza Type A (PCR) Influenza Type B (PCR) RSV RNA Qual (PCR) SARS-CoV-2 RNA (RT-PCR) Assessment and Plan (1) Sepsis: Status: Acute (2) Diabetic foot ulcer: Status: Acute (3) Cellulitis: Status: Acute (4) Acute kidney injury superimposed on CKD: Status: Acute (5) Metabolic acidosis: Status: Acute Assessment and Plan: 51-year-old male with past medical history of CKD, hypertension, hype rlipidemia, diabetes, diabetic neuropathy presented to hospital with generally not feeling well found to have sepsis # sepsis # 2/2 cellulitis and diabetic foot infection x-ray of foot is negative, has elevated ESR and CRP with an ulcer at the base of the right foot To check bone scan, DC MRI Continue broad-spectrum antibiotics Pending cultures Get wound care # Natalia on CKD # metabolic acidosis Creatinine to 4.9 from baseline around 2 CT negative for any obstruction Urine studies Change fluid to sodium bicarb with D5 Get Nephrology consult Repeat BMP this afternoon # lactic acidosis resolved with IV fluids # nausea vomiting and diarrhea CT abdomen negative Likely reactive to the infection C diff pending # hypertension continue amlodipine, hold lisinopril given NATALIA # diabetes hold Trulicity continue home Lantusinsulin sliding scale insulin added diabetic diet DVT prophylaxis Heparin Quality Stroke Does the patient have a stroke diagnosis?: No VTE Prior VTE?: No VTE Risk Level:: Medical - moderate - high VTE Device Contraindication: Treatment Not Indicated VTE Drug Contraindication: N/A - Med Ordered
--- NOTE | 2021-05-17 10:14 | MHC.CM.PN ---
nurse home health caregiver note electronic medical record reviewed, met with patient awake ,alert qnd orientated, kept his eyes closed. patient reported he was feeling very tired, he lives alone .independently in all adls and mobility. with put the use of any devices. patient does not have any vna or dme services in the home. he is followed by the [facility] iso coordinator and [facility] wound clinic. 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 he can drive , but currently has no lopez, and relies on friends to transport him to medical appointments. he reported in the past he had the [facility] and if needed he would like to have them back again discharge plan home no services vs home with new referral to the [facility] for nursing pcp dr taylor rucker transportation at d/c friends self resumption of endocriniiologist and [facility] wound care center
[2021-05-17] MEDS: Piperacillin Sodium/Tazobactam 2.25 GM in 0.9 % Sodium Chloride 50 ML IV ×3 (10:17→21:02)
[2021-05-17] MEDS: Sodium Bicarbonate 8.4% 150 MEQ in Dextrose 5 % 850 ML 125 MEQ IV ×2 (11:00→23:34)
[2021-05-17 11:28] LABS: Anion Gap 14 (12-20); Blood Urea Nitrogen 62 mg/dL (9-16); Calcium 7.2 mg/dL (8.4-10.2); Carbon Dioxide 15 mmol/L (22-29); Chloride 106 mmol/L (96-108); Creatinine Clr Calc Pharmacy 19.9; Estimated Glomerular Filt Rate 12; Glucose Random 371 mg/dL (60-115); Potassium 3.6 mmol/L (3.3-5.1); Sodium 131 mmol/L (135-145)
[2021-05-17 12:31] LABS: Glucose, Whole Blood 335 mg/dL (60-115)
--- NOTE | 2021-05-17 14:44 | CONS_ITS ---
DATE OF SERVICE: 05/17/2021 REASON FOR CONSULTATION: I was asked to see the patient to assist in evaluation and management of patient's acute kidney injury as reflected by creatinine of 4.9 on admission yesterday, whereas his baseline creatinine is in the 1.5 to 2.5 range. He also was noted to have a depressed serum bicarb on admission that was 16 and actually went down to 11. HISTORY OF PRESENT ILLNESS: In summary, the patient is a 51-year-old gentleman with a history of hypertension, diabetes, diabetic polyneuropathy, stage IIIB chronic kidney disease, hyperlipidemia, anemia, and foot ulcers and actually is being seen in the [facility] for antibiotics and wound care evaluation. He now presents to the emergency room with several days of GI symptoms including nausea, diarrhea, vomiting along with some respiratory symptoms of cough, nonproductive; upper respiratory congestion. As mentioned, he has a right foot ulcer, being seen in the [facility] and there is concern that it might be infected and with osteomyelitis. He also was screened for COVID, which was negative, but his influenza was positive for the flu. Presently, he states that he is feeling better than when he came into the hospital, but still has some respiratory symptoms. PAST MEDICAL HISTORY: As outlined above, includes, longstanding diabetes with presumably diabetic nephropathy and stage IIIB chronic kidney disease, baseline creatinine of 1.5 to 2.0 along with diabetic polyneuropathy; hypertension; hyperlipidemia; anemia; anxiety; depression; foot ulcer. The patient tells me he has never been seen by a digital librarian. MEDICATIONS: His medications on admission are noted in the admitting notes. Current medications on the AUG. He has been getting IV fluids with sodium bicarb. SOCIAL HISTORY: He has infrequent alcohol intake. He denies any illicit drug use. FAMILY HISTORY: Noncontributory. REVIEW OF SYSTEMS: As noted above. PHYSICAL EXAMINATION: VITAL SIGNS: Blood pressure 127/64 with a heart rate in the 90s. He is afebrile. HEENT: Head is atraumatic and normocephalic. Mucous membranes are moist. NECK: Supple. LUNGS: Breath sounds bilaterally with some rhonchi, decreased at the bases. CARDIAC: Regular rate and rhythm. ABDOMEN: Questionable ascites. Soft, nontender. EXTREMITIES: Shows 1+ edema and ulcer on the right foot. LABORATORY DATA: Labs from today show sodium 131, potassium 3.6, chloride 106, bicarb 15, anion gap 14, BUN 62, creatinine 5.1, calcium 7.2. On admission, his creatinine was 4.95, in reviewing his records, his creatinine have ranged in the 1.5 to 2.5 range over the past year. Hemoglobin 10.2, hematocrit 30.7, white blood cell count 4.7, platelet count 80,000. Urine studies show 2+ protein, 2+ blood, otherwise unremarkable. In the past, he had a urine albumin creatinine ratio which is ranging from 250 to 620 mg of albumin per gram of creatinine. He had a CAT scan of the abdomen and pelvis without contrast, which showed no renal masses, no hydro. IMPRESSION: A 51-year-old diabetic, admitted with gastrointestinal symptoms as well as upper respiratory symptoms, dehydration, positive for influenza virus infection and question of osteomyelitis of his right foot and noted to have acute kidney injury on chronic kidney disease. 1. Acute kidney injury. Relatively wide differential diagnosis for the cause of acute kidney injury. It may be renal hypoperfusion from dehydration, poor p.o. intake for the past several days. Our hope would be that renal function will improve with rehydration. Ongoing foot infection can be associated with immune complex mediated glomerulonephritis and this would be a concern and needs to be ruled out. The influenza flu itself can be associated with cytokine state and acute tubular necrosis and he is certainly at risk for acute tubular necrosis as well. Acute interstitial nephritis has also been reported on rare instances associated with flu. Obstructive uropathy seems very unlikely given the CAT scan showed no hydro. 2. Advanced stage IIIB chronic kidney disease with baseline creatinine 1.5 to 2.5. This is most consistent with underlying diabetic nephropathy. 3. Non-anion gap depressed serum bicarb. This is likely due to his diarrhea and the acute on chronic kidney disease. He may have underlying type 4 RTA as well contributing to the non-anion gap metabolic acidosis. The good news is that he seems to respond, his bicarb has come up to 15. Hopefully will improve further with IV sodium bicarb infusion. 4. Influenza flu. 5. Foot infection with question of osteomyelitis. He is currently on vancomycin and Zosyn. We would like to get him off vancomycin because of the risk of vancomycin-associated nephrotoxicity. We will discuss with the hospitalist that certainly need to decrease the dose if not stop it altogether. SUGGESTIONS: At this time include discontinue vancomycin or at the very least, decrease the dose as he probably does not need it, but every 24 to 48 hours given his degree of acute kidney injury. Obtain a urine for sodium, protein and creatinine. Urine for eosinophils. We will check complement levels. We will monitor his urine output and renal function closely. MD BAKARI Akins/TRENT / [phone]
--- NOTE | 2021-05-17 15:20 | PC.NURSE ---
Wound assessment completed today. Patient has a diabetic ulcer to left lateral 5th toe-grade 3. Wound cleansed with wound cleanser, silver alginate applied to wound bed covered with non woven gauze and roll gauze.
[2021-05-17 17:05] LABS: Glucose, Whole Blood 165 mg/dL (60-115)
[2021-05-17 19:07] LABS: Anion Gap 16 (12-20); Blood Urea Nitrogen 63 mg/dL (9-16); Calcium 7.7 mg/dL (8.4-10.2); Carbon Dioxide 16 mmol/L (22-29); Chloride 107 mmol/L (96-108); Creatinine Clr Calc Pharmacy 19.1; Estimated Glomerular Filt Rate 11; Glucose Random 158 mg/dL (60-115); Potassium 4.1 mmol/L (3.3-5.1); Sodium 135 mmol/L (135-145)
[2021-05-17 20:00] VITALS: BP 131/79; RESP 20; TEMP 36.9; O2SAT 96
[2021-05-17 20:58] LABS: Glucose, Whole Blood 170 mg/dL (60-115)
[2021-05-17] MEDS: Insulin Glargine,Hum.rec.anlog 100 UNIT/ML 10 ML VIAL 22 UNIT SUBCUT (21:03)
[2021-05-17 21:29] LABS: Vancomycin Random 16.4 mcg/mL (15-20)
--- NOTE | 2021-05-17 22:21 | HE.PHANOTE ---
Patients level came back at 16.4. Per nephrology note may suggest changing vanco since it is nephrotoxic and pt is in NATALIA. Scheduled next level for 05/18 @1900, next dose less than 48 hours so pharmacy will be present when troughs/doses are due.
[2021-05-17] MEDS: Throat Lozenge, Medicated LOZENGE 1 LOZENGE MUCOUS MEM (23:34)
[2021-05-18] VITALS (7 sets, daily range): BP systolic 117–178; BP diastolic 62–89; PULSE 77–93; RESP 17–20; TEMP 36–36.9; O2SAT 95–98
[2021-05-18] MEDS: Piperacillin Sodium/Tazobactam 2.25 GM in 0.9 % Sodium Chloride 50 ML IV ×4 (03:22→20:59)
[2021-05-18 06:25] LABS: Hematocrit 28.1 % (42.0-52.0); Hemoglobin 9.5 g/dl (14.0-18.0); Mean Corpuscular HGB Conc 33.8 g/dl (31.0-36.0); Mean Corpuscular Hemoglobin 29.1 pg (27.0-33.0); Mean Corpuscular Volume 86.2 fL (80.0-98.0); Mean Platelet Volume 11.7 fL (9.4-12.4); Red Blood Count 3.26 X10*6/uL (4.60-5.80); Red Cell Distribution Width 12.7 % (11.0-16.0); White Blood Count 5.4 X10*3/uL (4.8-10.8)
[2021-05-18 06:30] LABS: Platelet Count 83 X10*3/uL (160-400)
[2021-05-18 06:34] LABS: Anion Gap 13 (12-20); Blood Urea Nitrogen 58 mg/dL (9-16); Calcium 7.4 mg/dL (8.4-10.2); Carbon Dioxide 20 mmol/L (22-29); Chloride 105 mmol/L (96-108); Creatinine Clr Calc Pharmacy 21.5; Estimated Glomerular Filt Rate 13; Glucose Random 212 mg/dL (60-115); Potassium 3.2 mmol/L (3.3-5.1); Sodium 135 mmol/L (135-145)
[2021-05-18 06:57] LABS: HBc Num1 0.09 S/CO (0.00-0.79); HBsAGNum1 0.27 S/CO (0.00-0.99); Hepatitis B Core Antibody Nonreactive (Nonreactive); Hepatitis B Surface Antigen Negative (Negative)
[2021-05-18 07:00] LABS: ~HepC Num1 0.08 S/CO (0.00-0.79); ~Hepatitis B Surface Antibody NONREACTIVE (Nonreactive); ~Hepatitis C Antibody Nonreactive (Nonreactive)
[2021-05-18 07:33] LABS: Glucose, Whole Blood 209 mg/dL (60-115)
[2021-05-18] MEDS: Insulin Lispro 100 UNIT/ML 3 ML VIAL SUBCUT ×4 (07:56→21:00)
[2021-05-18] MEDS: Heparin Sodium,Porcine 5,000 UNIT/ML VIAL 5000 UNIT SUBCUT ×2 (08:12→21:01)
[2021-05-18] MEDS: Potassium Chloride Packet 20 MEQ PACKET 40 MEQ PO (08:13)
[2021-05-18] MEDS: 0.9 % Sodium Chloride Flush 3 ML SYRINGE IVFLUSH (08:17)
[2021-05-18] MEDS: Sodium Bicarbonate 8.4% 150 MEQ in Dextrose 5 % 850 ML 125 MEQ IV ×2 (08:45→21:06)
--- NOTE | 2021-05-18 11:09 | P.PNNP_ITS ---
Subjective Subjective Date of Service: 05/18/21 Principal diagnosis: NATALIA, CKD, osteo, GPC bacteremia Interval history: Seen and examined, events noted He wants to kleave AMA despite being told it is very very dangerous as he needs IV ABx and cont monitoring of his renal func Physical Exam Vital Signs: Vital Signs: Last Vital Signs Temp 97.3 F 05/18/21 07:23 Pulse 93 05/18/21 07:23 Resp 18 05/18/21 07:23 BP 131/80 05/18/21 07:23 Pulse Ox 97 05/18/21 07:23 BMI result Body Mass Index 36.8 Const: Other: Constitutional : Alert, oriented, not in distress Neck : Normal inspection, Supple Cardiovascular : RRR, S1 S2, no lower extremity edema Respiratory : Good bilateral air entry, no crackles, wheezes or rhonchi Gastrointestinal: soft, lax, Normal bowel sounds, Non tender Skin : Warm, Dry, left leg and foot mild erythema and warmth, left small toe lateral dry wound with no opening or drainage, mild tenderness Neurological : Alert & oriented x3, No focal deficit General: cooperative and no acute distress Orientation/consciousness: patient oriented x3 Eyes: General: appearance normal, both eyes and all related structures Pupils: Equal, round and reactive pupils present Resp: Effort & Inspection: normal respiratory effort Auscultation: clear to auscultation bilaterally Cardio: Rate: regular rate Rhythm: regular rhythm GI: Other: patient has no tenderness, rebound or guarding Palpation (GI): Soft to palpation Auscultation: normal bowel sounds Skin: General skin exam: no rashes or lesions noted Neuro: General: patient oriented x3 Cranial nerves: Yes Equal, round and reactive pupils present Cognition (Neuro): normal cognition Extrem: Other: right foot with erythema, edema, tenderness, warmth, a black ulcer at the base of the 5th toe Objective Data Labs CBC & Chem 7: 05/18/21 05:56 05/18/21 05:56 Labs: Laboratory Results - last 24 hr 05/17/21 05/17/21 05/17/21 10:28 12:26 17:00 WBC RBC Hgb Hct MCV MCH MCHC RDW Plt Count MPV Absolute Nucleated RBC Nucleated RBC % (auto) Sodium 131 L Potassium 3.6 Chloride 106 Carbon Dioxide 15 L Anion Gap 14 BUN 62 H Creatinine 5.10 H* Estim Creat Clear Calc 19.9 Estimated GFR 12 POC Glucose 335 H 165 H Random Glucose 371 H* Calcium 7.2 L Random Vancomycin Hep Bs Antigen Hep Bs Antibody Hep B Core Total Ab Hepatitis C Ab (EIA) 05/17/21 05/17/21 05/17/21 18:19 20:51 21:02 WBC RBC Hgb Hct MCV MCH MCHC RDW Plt Count MPV Absolute Nucleated RBC Nucleated RBC % (auto) Sodium 135 Potassium 4.1 Chloride 107 Carbon Dioxide 16 L Anion Gap 16 BUN 63 H Creatinine 5.32 H* Estim Creat Clear Calc 19.1 Estimated GFR 11 POC Glucose 170 H Random Glucose 158 H D Calcium 7.7 L D Random Vancomycin 16.4 Hep Bs Antigen Hep Bs Antibody Hep B Core Total Ab Hepatitis C Ab (EIA) 05/18/21 05/18/21 05/18/21 05:56 05:56 05:56 WBC 5.4 RBC 3.26 L Hgb 9.5 L Hct 28.1 L MCV 86.2 MCH 29.1 MCHC 33.8 RDW 12.7 Plt Count 83 L MPV 11.7 Absolute Nucleated RBC 0.000 Nucleated RBC % (auto) 0.0 Sodium 135 Potassium 3.2 L D Chloride 105 Carbon Dioxide 20 L Anion Gap 13 BUN 58 H Creatinine 4.73 H* Estim Creat Clear Calc 21.5 Estimated GFR 13 POC Glucose Random Glucose 212 H Calcium 7.4 L Random Vancomycin Hep Bs Antigen Negative Hep Bs Antibody NONREACTIVE Hep B Core Total Ab Nonreactive Hepatitis C Ab (EIA) Nonreactive 05/18/21 07:21 WBC RBC Hgb Hct MCV MCH MCHC RDW Plt Count MPV Absolute Nucleated RBC Nucleated RBC % (auto) Sodium Potassium Chloride Carbon Dioxide Anion Gap BUN Creatinine Estim Creat Clear Calc Estimated GFR POC Glucose 209 H Random Glucose Calcium Random Vancomycin Hep Bs Antigen Hep Bs Antibody Hep B Core Total Ab Hepatitis C Ab (EIA) Microbiology Microbiology Results: Microbiology 05/16/21 21:42 Blood - Venous Blood Culture - Preliminary Streptococcus species 05/16/21 20:35 Blood - Venous Blood Culture - Preliminary Streptococcus species Procedures Date of Service Date of Service: 05/18/21 Assessment & Plan Assessment and plan (1) Sepsis: Status: Acute (2) Diabetic foot ulcer: Status: Acute (3) Cellulitis: Status: Acute (4) Acute kidney injury superimposed on CKD: Status: Acute (5) Metabolic acidosis: Status: Acute Assessment and Plan: A 51-year-old diabetic, admitted with gastrointestinal symptoms as well as upper respiratory symptoms, dehydration, positive for influenza virus infection and question of osteomyelitis of his right foot and noted to have acute kidney injury on chronic kidney disease.and now GPC bacteremia 1. NATALIA: SCr 5.3 to 4.7; appears to be responding to IVF; FENa not done yet; other poss including AGN d/t infection ( MPGN) despite C3/C4 normal and , AIN are still possibilities Obs r/o by CT w/o hydro 2. CKD 3b: BSL SCr 2.0-2.5; c/w DN/HTN renal dis 3. NAGMA: beter with IV NaHCO3 4. GPC bacteremia: vanco dosing adjusted . 4. Influenza flu. 5. Foot infection with question of osteomyelitis.? Disc: I explained to him that he is making a very very bad decsion by leaving hosp AMA and may from infection and/or renal failure REC: cont IVF and ABX and track UOP/renal func if he stays inhosp; need outpt f/u re CKD prog protection Will follow inhosp if he decisdes to stay , I will arrange f/u if he leaves AMA Time Spent With Patient Time: Total time spent is greater than 50% in coordination of care (as doc umented) at patient's floor/unit and/or counseling patient: Progress Note: Quality Stroke Does the patient have a stroke diagnosis?: No
--- NOTE | 2021-05-18 11:16 | HO.PM.IMPN ---
Subjective Subjective Date of Service: 05/18/21 Interval History: the patient was seen and evaluated this morning Laying in bed, feels much better today Asking when he will be discharged as he has a wedding over the weekend Denies any fever, chills or shortness of breath No reported other overnight events. Systemic review: No fever, chills or weakness No chest pain, palpitation No shortness of breath or coughing No abdominal pain but reporting some nausea No urinary symptoms The right lower extremity erythema and pain Physical Exam Vital Signs: Vital Signs: Last Vital Signs Temp 97.3 F 05/18/21 07:23 Pulse 93 05/18/21 07:23 Resp 18 05/18/21 07:23 BP 131/80 05/18/21 07:23 Pulse Ox 97 05/18/21 07:23 BMI result Body Mass Index 36.8 Const: Other: Constitutional : Alert, oriented, not in distress Neck : Normal inspection, Supple Cardiovascular : RRR, S1 S2, no lower extremity edema Respiratory : Good bilateral air entry, no crackles, wheezes or rhonchi Gastrointestinal: soft, lax, Normal bowel sounds, Non tender Skin : Warm, Dry, left leg and foot mild erythema and warmth improving, left small toe lateral open wound with no drainage, mild tenderness Neurological : Alert & oriented x3, No focal deficit Objective Data Active Medications Acetaminophen (Acetaminophen 325 Mg Tablet) 650 mg PO Q6H PRN PRN Reason: Pain, Mild (Pain Scale 1-3) Amlodipine Besylate (Amlodipine Besylate 10 Mg Tablet) 10 mg PO DAILY [facility]; Protocol Last Admin: 05/18/21 10:11 Dose: Not Given Documented by: LORIN Non-Admin Reason: Patient Refused Atorvastatin Calcium (Atorvastatin Calcium 80 Mg Tablet) 80 mg PO DAILY [facility] Last Admin: 05/18/21 10:11 Dose: Not Given Documented by: LORIN Non-Admin Reason: Patient Refused Benzocaine (Throat Lozenge, Medicated Lozenge) 1 lozenge MUCOUS MEM Q2H PRN PRN Reason: Sore Throat Last Admin: 05/17/21 23:34 Dose: 1 lozenge Documented by: JERSONRISRaven Dextrose (Dextrose 50 % 25 Gm/50 Ml Vial) 25 gm IVPUSH Q15M PRN; Protocol PRN Reason: per Hypoglycemia Standing Ord. Glucose (Glucose Gel 15 Gm Gel..Gram.) 15 gm PO Q15M PRN; Protocol PRN Reason: per Hypoglycemia Standing Ord. Heparin Sodium (Porcine) (Heparin Sodium,Porcine 5,000 Unit/Ml Vial) 5,000 unit SUBCUT Q12H [facility] Last Admin: 05/18/21 08:12 Dose: 5,000 unit Documented by: LORIN Piperacillin Sod/Tazobactam (Sod 2.25 gm/ Sodium Chloride) 50 mls @ 100 mls/hr IV Q6H [facility] Last Infusion: 05/18/21 09:07 Dose: 0 mls/hr Documented by: LORIN Sodium Bicarbonate 150 meq/ (Dextrose) 1,000 mls @ 125 mls/hr IV .Q8H [facility] Last Admin: 05/18/21 08:45 Dose: 125 mls/hr Documented by: LORIN Vancomycin HCl 1,250 mg/ (Sodium Chloride) 250 mls @ 166.667 mls/hr IV Q48H [facility] Insulin Glargine (Insulin Glargine,Hum.Rec.Anlog 100 Unit/Ml 10 Ml Vial) 22 unit SUBCUT BEDTIME [facility] Last Admin: 05/17/21 21:03 Dose: 22 unit Documented by: JERSONRISRaven Insulin Human Lispro (Insulin Lispro 100 Unit/Ml 3 Ml Vial) 0 unit SUBCUT QIDACHS [facility]; Protocol Last Admin: 05/18/21 07:56 Dose: 4 unit Documented by: LORIN Ondansetron HCl (Ondansetron Hcl 4 Mg/2 Ml Vial) 4 mg IVPUSH Q8H PRN PRN Reason: Nausea and Vomiting Last Admin: 05/17/21 06:08 Dose: 4 mg Documented by: OTTONIEL Oxycodone HCl (Oxycodone Hcl Immed Release 5 Mg Tablet) 5 mg PO Q6H PRN PRN Reason: Pain, Severe (Pain Scale 7-10) Pharmacy Consult (Consult Rx Vancomycin Dosing) 1 each MISCELLANE DAILY PRN PRN Reason: Consult order Pharmacy Consult (Consult Rx Perform Med Rec) 1 each MISCELLANE ONCE PRN PRN Reason: Consult order Potassium Chloride (Potassium Chloride Packet 20 Meq Packet) 40 meq PO Q4H [facility] Stop: 05/18/21 11:46 Last Admin: 05/18/21 08:13 Dose: 40 meq Documented by: LORIN Sodium Chloride (0.9 % Sodium Chloride Flush 3 Ml Syringe) 3 ml IVFLUSH QSHIFT [facility] Last Admin: 05/18/21 08:17 Dose: 3 ml Documented by: LORIN Labs CBC & Chem 7: 05/18/21 05:56 05/18/21 05:56 Labs: Laboratory Results - last 24 hr 05/17/21 05/17/21 05/17/21 10:28 12:26 17:00 MCV MCH MCHC RDW Plt Count MPV Absolute Nucleated RBC Nucleated RBC % (auto) Anion Gap 14 Estim Creat Clear Calc 19.9 Estimated GFR 12 POC Glucose 335 H 165 H Random Glucose 371 H* Calcium 7.2 L Random Vancomycin Hep Bs Antigen Hep Bs Antibody Hep B Core Total Ab Hepatitis C Ab (EIA) 05/17/21 05/17/21 05/17/21 18:19 20:51 21:02 MCV MCH MCHC RDW Plt Count MPV Absolute Nucleated RBC Nucleated RBC % (auto) Anion Gap 16 Estim Creat Clear Calc 19.1 Estimated GFR 11 POC Glucose 170 H Random Glucose 158 H D Calcium 7.7 L D Random Vancomycin 16.4 Hep Bs Antigen Hep Bs Antibody Hep B Core Total Ab Hepatitis C Ab (EIA) 05/18/21 05/18/21 05/18/21 05:56 05:56 05:56 MCV 86.2 MCH 29.1 MCHC 33.8 RDW 12.7 Plt Count 83 L MPV 11.7 Absolute Nucleated RBC 0.000 Nucleated RBC % (auto) 0.0 Anion Gap 13 Estim Creat Clear Calc 21.5 Estimated GFR 13 POC Glucose Random Glucose 212 H Calcium 7.4 L Random Vancomycin Hep Bs Antigen Negative Hep Bs Antibody NONREACTIVE Hep B Core Total Ab Nonreactive Hepatitis C Ab (EIA) Nonreactive 05/18/21 07:21 MCV MCH MCHC RDW Plt Count MPV Absolute Nucleated RBC Nucleated RBC % (auto) Anion Gap Estim Creat Clear Calc Estimated GFR POC Glucose 209 H Random Glucose Calcium Random Vancomycin Hep Bs Antigen Hep Bs Antibody Hep B Core Total Ab Hepatitis C Ab (EIA) Microbiology Microbiology Results: Microbiology 05/16/21 21:42 Blood Culture - Preliminary Blood - Venous Streptococcus species 05/16/21 20:35 Blood Culture - Preliminary Blood - Venous Streptococcus species Assessment and Plan (1) Bacteremia: Status: Acute (2) Metabolic acidosis: Status: Acute (3) Acute kidney injury superimposed on CKD: Status: Acute (4) Diabetic foot ulcer: Status: Acute (5) Sepsis: Status: Acute Assessment and Plan: 51-year-old male with past medical history of CKD, hypertension, hyperlipidemia, diabetes, diabetic neuropathy presented to hospital with generally not feeling well found to have sepsis # sepsis # 2/2 Streptococcus bacteremia from cellulitis and diabetic foot infection x-ray of foot is negative Bone scan negative for osteomyelitis Continue broad-spectrum antibiotics Pending repeat cultures ID evaluation # Natalia on CKD # metabolic acidosis Creatinine started to improve at 4.7 CT negative for any obstruction Urine studies Continue sodium bicarb with D5 Nephrology input appreciated Repeat BMP this afternoon # hypokalemia Replacement given Follow BMP # nausea vomiting and diarrhea Improving Likely reactive to the infection C diff pending # hypertension continue amlodipine, hold lisinopril given NATALIA # diabetes hold Trulicity continue home Lantusinsulin sliding scale insulin added diabetic diet DVT prophylaxis Heparin Quality Stroke Does the patient have a stroke diagnosis?: No VTE Prior VTE?: No VTE Risk Level:: Medical - moderate - high VTE Device Contraindication: Treatment Not Indicated VTE Drug Contraindication: N/A - Med Ordered
[2021-05-18 12:38] LABS: Glucose, Whole Blood 245 mg/dL (60-115)
[2021-05-18 12:47] LABS: EOS Counted 0 CELLS; EOS QC POS YES; EOS Stain Quality OK YES; WBC, Counted 100 CELLS
--- NOTE | 2021-05-18 15:30 | MHC.CM.PN ---
NURSE CASE MANAGEMENT ELECTRONIC MEDIAL RECORD REVIEWED , ALONG WITH CASE DISCUSSED WITH STAFF NURSE AND ON MULTIPLE DISCIPLIANRY ROUNDS PER DOCUMENTAITON PATIENT WITH STREPTOCOCCUS BACTEREMIA FROM CELLULITIS nd diabetic foot infection x-ray -negative, bone scan negative for osteomyelitis continues on iv abx pending repeat cultures continue to follow labs chemistry bmp, renal physicians also continue to follow patient discharge plkan home no services vs home with new hvna if needed transportation friends \ pcp dr taylor bojorquez
[2021-05-18 15:59] LABS: Glucose, Whole Blood 189 mg/dL (60-115)
[2021-05-18] MEDS: Potassium Chloride/H20 10 MEQ/100 ML PIGGYBACK 100 MEQ IV ×2 (15:59→17:19)
--- NOTE | 2021-05-18 16:29 | P.CNID_ITS ---
History of Present Illness Data of Consult Service Date: 05/18/21 Requesting physician: Claudia Oconnor Primary Care Provider: Michael Garcia MD [facility] Reason for consult: bacteremia He presents with weakness and fatigue. He has chronic right lateral foot wound last month He has chills Bone scan no osteomyelitis He sees wound clinic BLood culture strep species Review of Systems Review of Systems: Yes all other systems are reviewed and are negative [facility] Past Medical History Medical History Allergic rhinitis Anemia Anemia Anxiety Benign essential hypertension Chronic kidney disease (CKD), stage III (moderate) Chronic kidney disease, stage 3 Depression Diabetic polyneuropathy Diarrhea Erectile dysfunction Essential hypertension History of foot ulcer 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 LDL goal <70 retirement (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 of insulin Obesity (BMI 30-39.9) Pure hypercholesterolemia Right foot ulcer Rotator cuff arthropathy of left shoulder 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 Type 2 diabetes mellitus with hyperglycemia, with long-term current use of insulin Vitamin D deficiency Vitamin D deficiency Family History Family History Father Lung cancer Mother Hypertension Coronary artery disease CVD (cardiovascular disease) TIA (transient ischemic attack) Sister Diabetes Maternal Uncle Diabetes Other Mental health problem Surgical History Surgical History History of nasal surgery Social History Social History Household Members: None Housing: Apartment Do you presently have visiting nurse or other home services: No Alcohol intake: current Alcohol intake frequency: holidays/special occasions only Patient Tobacco Use Status: Never used Tobacco Second Hand Smoke Exposure: Yes Use of substances other than those prescribed or required for medical reasons: No Currently Displaying Signs/Symptoms of Drug Intoxication Withdrawal: No Have you been hit, kicked, punched, or otherwise hurt by someone within the past year? If so, by whom?: No Do you feel safe in your current relationship?: No Current Relationship Is there a partner from a previous relationship who is making you feel unsafe now?: No Are you made to feel afraid or neglected: No Advance Directives: No Advance Directives Information Provided: Yes Do you have thoughts of harming others: None Do you have a plan to hurt others: No Plan Recently lost weight without trying: No service: No Current occupational status: unemployed Meds Allergies Allergy/AdvReac Type Severity Reaction Status Date / Time No Known Allergies Allergy Verified 05/16/21 19:45 Active Medications: Current Medications Acetaminophen (Acetaminophen 325 Mg Tablet) 650 mg PO Q6H PRN PRN Reason: Pain, Mild (Pain Scale 1-3) Amlodipine Besylate (Amlodipine Besylate 10 Mg Tablet) 10 mg PO DAILY [facility]; Protocol Last Admin: 05/18/21 10:11 Dose: Not Given Documented by: Atorvastatin Calcium (Atorvastatin Calcium 80 Mg Tablet) 80 mg PO DAILY [facility] Last Admin: 05/18/21 10:11 Dose: Not Given Documented by: Benzocaine (Throat Lozenge, Medicated Lozenge) 1 lozenge MUCOUS MEM Q2H PRN PRN Reason: Sore Throat Last Admin: 05/17/21 23:34 Dose: 1 lozenge Documented by: Dextrose (Dextrose 50 % 25 Gm/50 Ml Vial) 25 gm IVPUSH Q15M PRN; Protocol PRN Reason: per Hypoglycemia Standing Ord. Glucose (Glucose Gel 15 Gm Gel..Gram.) 15 gm PO Q15M PRN; Protocol PRN Reason: per Hypoglycemia Standing Ord. Heparin Sodium (Porcine) (Heparin Sodium,Porcine 5,000 Unit/Ml Vial) 5,000 unit SUBCUT Q12H [facility] Last Admin: 05/18/21 08:12 Dose: 5,000 unit Documented by: Piperacillin Sod/Tazobactam (Sod 2.25 gm/ Sodium Chloride) 50 mls @ 100 mls/hr IV Q6H [facility] Last Infusion: 05/18/21 15:57 Dose: Infused Documented by: Sodium Bicarbonate 150 meq/ (Dextrose) 1,000 mls @ 125 mls/hr IV .Q8H [facility] Last Infusion: 05/18/21 16:03 Dose: 0 mls/hr Documented by: Vancomycin HCl 1,250 mg/ (Sodium Chloride) 250 mls @ 166.667 mls/hr IV Q48H [facility] Insulin Glargine (Insulin Glargine,Hum.Rec.Anlog 100 Unit/Ml 10 Ml Vial) 22 unit SUBCUT BEDTIME [facility] Last Admin: 05/17/21 21:03 Dose: 22 unit Documented by: Insulin Human Lispro (Insulin Lispro 100 Unit/Ml 3 Ml Vial) 0 unit SUBCUT QIDACHS [facility]; Protocol Last Admin: 05/18/21 12:51 Dose: 4 unit Documented by: Ondansetron HCl (Ondansetron Hcl 4 Mg/2 Ml Vial) 4 mg IVPUSH Q8H PRN PRN Reason: Nausea and Vomiting Last Admin: 05/17/21 06:08 Dose: 4 mg Documented by: Oxycodone HCl (Oxycodone Hcl Immed Release 5 Mg Tablet) 5 mg PO Q6H PRN PRN Reason: Pain, Severe (Pain Scale 7-10) Pharmacy Consult (Consult Rx Vancomycin Dosing) 1 each MISCELLANE DAILY PRN PRN Reason: Consult order Pharmacy Consult (Consult Rx Perform Med Rec) 1 each MISCELLANE ONCE PRN PRN Reason: Consult order Sodium Chloride (0.9 % Sodium Chloride Flush 3 Ml Syringe) 3 ml IVFLUSH QSHIFT [facility] Last Admin: 05/18/21 16:03 Dose: Not Given Documented by: Physical Exam Vital Signs: Vital Signs: Last Vital Signs Temp 97.2 F 05/18/21 15:45 Pulse 82 05/18/21 15:45 Resp 20 05/18/21 15:45 BP 178/89 H 05/18/21 15:45 Pulse Ox 95 05/18/21 15:45 BMI result Body Mass Index 36.8 Const: General: cooperative Eyes: General: appearance normal, both eyes and all related structures Resp: Effort & Inspection: normal respiratory effort Cardio: Rate: regular rate Rhythm: regular rhythm GI: Palpation (GI): Soft to palpation and nontender Extrem: Other: lateral right foot wound one cm Results Labs CBC & Chem 7: 05/18/21 05:56 05/18/21 05:56 Labs: Short CBC 05/18/21 Range/Units 05:56 WBC 5.4 (4.8-10.8) X10*3/uL Hgb 9.5 L (14.0-18.0) g/dl Hct 28.1 L (42.0-52.0) % Plt Count 83 L (160-400) X10*3/uL BMP 12/02/21 12/03/21 18:19 05:56 Sodium 135 135 Potassium 4.1 3.2 L D Chloride 107 105 Carbon Dioxide 16 L 20 L BUN 63 H 58 H Creatinine 5.32 H* 4.73 H* Calcium 7.7 L D 7.4 L Microbiology Microbiology Results: Microbiology 05/17/21 10:13 Blood - Venous Blood Culture - Preliminary No growth after 24 hours. 05/17/21 10:28 Blood - Venous Blood Culture - Preliminary No growth after 24 hours. 05/16/21 21:42 Blood - Venous Blood Culture - Preliminary Streptococcus species 05/16/21 20:35 Blood - Venous Blood Culture - Preliminary Streptococcus species Assessment and Plan (1) Bacteremia: Status: Acute He has no osteomyelitis but has foot wound open wound source likely for bacteremia as urine unremarkable. He has strep possible enterococcus or typeable strep Less likely VRE (2) Diabetic foot ulcer: Status: Acute Await cultures IV Zosyn cover above until results back Echo Duration antibiotics and type depends on results of above Stop Vancomycin
[2021-05-18] MEDS: Acetaminophen Oral Liquid 650 MG/20.3 ML SOLUTION PO (18:58)
[2021-05-18 20:11] LABS: Vancomycin Random 10.6 mcg/mL (15-20)
[2021-05-18 20:37] LABS: Glucose, Whole Blood 189 mg/dL (60-115)
[2021-05-18] MEDS: Insulin Glargine,Hum.rec.anlog 100 UNIT/ML 10 ML VIAL 22 UNIT SUBCUT (21:00)
[2021-05-19] MEDS: Piperacillin Sodium/Tazobactam 2.25 GM in 0.9 % Sodium Chloride 50 ML IV ×2 (03:17→09:21)
[2021-05-19] MEDS: Sodium Bicarbonate 8.4% 150 MEQ in Dextrose 5 % 850 ML 125 MEQ IV (04:46)
[2021-05-19 06:37] LABS: Hematocrit 27.7 % (42.0-52.0); Hemoglobin 9.3 g/dl (14.0-18.0); Mean Corpuscular HGB Conc 33.6 g/dl (31.0-36.0); Mean Corpuscular Hemoglobin 29.2 pg (27.0-33.0); Mean Corpuscular Volume 86.8 fL (80.0-98.0); Mean Platelet Volume 11.5 fL (9.4-12.4); Red Blood Count 3.19 X10*6/uL (4.60-5.80); Red Cell Distribution Width 12.4 % (11.0-16.0); White Blood Count 4.7 X10*3/uL (4.8-10.8)
[2021-05-19 06:38] LABS: Platelet Count 92 X10*3/uL (160-400)
[2021-05-19 07:02] LABS: Anion Gap 12 (12-20); Blood Urea Nitrogen 43 mg/dL (9-16); Calcium 7.7 mg/dL (8.4-10.2); Carbon Dioxide 28 mmol/L (22-29); Chloride 102 mmol/L (96-108); Estimated Glomerular Filt Rate 18; Glucose Random 225 mg/dL (60-115); Sodium 139 mmol/L (135-145)
[2021-05-19 07:18] VITALS: BP 163/82; PULSE 80; RESP 18; TEMP 35.9
[2021-05-19 07:31] LABS: Glucose, Whole Blood 224 mg/dL (60-115)
[2021-05-19] MEDS: Insulin Lispro 100 UNIT/ML 3 ML VIAL SUBCUT (07:52)
[2021-05-19] MEDS: Heparin Sodium,Porcine 5,000 UNIT/ML VIAL 5000 UNIT SUBCUT (07:52)
[2021-05-19] MEDS: Potassium Chloride/H20 10 MEQ/100 ML PIGGYBACK 100 MEQ IV (07:53)
--- NOTE | 2021-05-19 09:34 | PM.PNNEP ---
Subjective Subjective Date of Service: 05/19/21 Principal diagnosis: NATALIA, CKD, osteo, GPC bacteremia Interval history: seen and examined no complaints this am Physical Exam Vital Signs: Vital Signs: Last Vital Signs Temp 96.6 F L 05/19/21 07:18 Pulse 80 05/19/21 07:18 Resp 18 05/19/21 07:18 BP 163/82 H 05/19/21 07:18 Pulse Ox 96 05/18/21 23:52 BMI result Body Mass Index 36.8 Const: General: no acute distress Neck: Neck: Yes supple Resp: Auscultation: diminished lung sounds Cardio: Heart sounds: S1 normal heart sound present and S2 normal heart sound present GI: Palpation (GI): Soft to palpation and nontender Extrem: General: Yes pedal edema Objective Data Labs CBC & Chem 7: 05/19/21 06:12 05/19/21 06:12 Labs: Laboratory Results - last 24 hr 05/18/21 05/18/21 05/18/21 12:24 15:51 19:30 WBC RBC Hgb Hct MCV MCH MCHC RDW Plt Count MPV Absolute Nucleated RBC Nucleated RBC % (auto) Sodium Potassium Chloride Carbon Dioxide Anion Gap BUN Creatinine Estim Creat Clear Calc Estimated GFR POC Glucose 245 H 189 H Random Glucose Calcium Urine Eosinophils % Random Vancomycin 10.6 L 05/18/21 05/18/21 05/19/21 20:32 Unknown 06:12 WBC 4.7 L RBC 3.19 L Hgb 9.3 L Hct 27.7 L MCV 86.8 MCH 29.2 MCHC 33.6 RDW 12.4 Plt Count 92 L MPV 11.5 Absolute Nucleated RBC 0.000 Nucleated RBC % (auto) 0.0 Sodium Potassium Chloride Carbon Dioxide Anion Gap BUN Creatinine Estim Creat Clear Calc Estimated GFR POC Glucose 189 H Random Glucose Calcium Urine Eosinophils % 0.0 Random Vancomycin 05/19/21 05/19/21 06:12 07:08 WBC RBC Hgb Hct MCV MCH MCHC RDW Plt Count MPV Absolute Nucleated RBC Nucleated RBC % (auto) Sodium 139 Potassium 3.0 L Chloride 102 Carbon Dioxide 28 Anion Gap 12 BUN 43 H Creatinine 3.63 H Estim Creat Clear Calc 28.0 Estimated GFR 18 POC Glucose 224 H Random Glucose 225 H Calcium 7.7 L Urine Eosinophils % Random Vancomycin Microbiology Microbiology Results: Microbiology 05/16/21 20:35 Blood - Venous Blood Culture - Preliminary Streptococcus group c 05/16/21 21:42 Blood - Venous Blood Culture - Preliminary Streptococcus group c 05/17/21 10:13 Blood - Venous Blood Culture - Preliminary No growth after 24 hours. 05/17/21 10:28 Blood - Venous Blood Culture - Preliminary No growth after 24 hours. Procedures Date of Service Date of Service: 05/19/21 Assessment & Plan Assessment and plan (1) NATALIA (acute kidney injury): Status: Acute (2) Bacteremia: Status: Acute (3) CKD (chronic kidney disease) stage 3, GFR 30-59 ml/min: Status: Acute Assessment and Plan: ? Scr better NATALIA due to septic acute tubular injury with renal hypoperfusion in the setting of GPC bacteremia cannot rule out perii infectious GN C3/C4 jimenez CT scan negative for obstruction known CKD due to DM/HTN baseline Scr 2-2.5 mg/dl REC replace potassium ABX follow kidney function and electrolytes Time Spent With Patient Time: Total time spent is greater than 50% in coordination of care (as documented) at patient's floor/unit and/or counseling patient: Progress Note: Quality Stroke Does the patient have a stroke diagnosis?: No
--- NOTE | 2021-05-19 09:56 | PM.EVENT ---
Event Note Date of Service: 05/19/21 Event Note: Discharge note Discharge diagnosis Acute kidney injury on top of CKD stage 3 Sepsis Gram-positive bacteremia Cellulitis The patient was admitted to the hospital for acute kidney injury and cellulitis treatment. Found to have bacteremia with g positive cocci still pending final cultures. Treated with IV antibiotics and evaluated by infectious disease. He insisted on leaving the hospital against medical advice to attend a wedding of his relative. I explained to him the risk of leaving the hospital including getting sicker, worsening infection or possible . He understood and was able to repeat these concerns but insisted on leaving. He signed AMA and left with promised to come back to restart the treatment again.
[2021-05-22 05:11] LABS: Complement C3 110 mg/dL (82-185)
== END 2021-05-19 10:16 | disposition left against medical advice (07) | DRG 720 ==
LOC: HO.ED 23:47 → HO.EDOVER 05-17 00:05 → HO.S3 05-17 02:02
PROVIDERS: Internal Medicine Nephrology; Admitting Provider Internal Medicine; Emergency Provider Emergency Medicine; PCP Internal Medicine; Visit Provider Student in an Organized Health Care Education/Training Program
DX: A40.9 Streptococcal sepsis, unspecified (principal); N17.0 Acute kidney failure with tubular necrosis; E87.2 Acidosis; E87.1 Hypo-osmolality and hyponatremia; I12.9 Hypertensive chronic kidney disease with stage 1 through stage 4 chronic kidney disease, or unspecified chronic kidney disease; E11.22 Type 2 diabetes mellitus with diabetic chronic kidney disease; E86.0 Dehydration; E11.43 Type 2 diabetes mellitus with diabetic autonomic (poly)neuropathy; E11.621 Type 2 diabetes mellitus with foot ulcer; L03.115 Cellulitis of right lower limb; E87.6 Hypokalemia; J11.1 Influenza due to unidentified influenza virus with other respiratory manifestations; L97.529 Non-pressure chronic ulcer of other part of left foot with unspecified severity; N18.32 Chronic kidney disease, stage 3b; Z20.822 Contact with and (suspected) exposure to COVID-19; Z79.1 Long term (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 of non-steroidal anti-inflammatories (NSAID); Z79.4 Long term (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 of insulin; Z79.899 Other long term (current) drug therapy
CPT/HCPCS: 0241U; 36415; 71045; 73620; 74176; 78315; 80048; 80076; 80202; 80307; 81001; 82947; 83605; 83690; 84484; 85025; 85027; 85652; 86140; 86160; 86704; 86706; 86803; 87040; 87147; 87186; 87205; 87340; 87493; 87635; 89190; 93005; 96361; 96374; 99285; 99499; A9503; J0692; J2405; J2543; J2550; J3370

== ENCOUNTER 2021-06-14 10:05 | Outpatient (REF) | payer OTHER, SELFPAY ==
--- NOTE | ~2021-06-14 | MR_ITS ---
EXAMINATION: MRI OF THE RIGHT FOOT WITH AND WITHOUT CONTRAST. CLINICAL INFORMATION: NON HEALING RT FOOT WOUND R/O OSTEO DORSAL LATERAL ASPECT COMPARISON: 05/16/2021 TECHNIQUE: Multiplanar MR imaging was obtained through the right foot on a 1.5 Shirley magnet before and after intravenous administration of 10 cc Gadavist. FINDINGS: There is a complex peripherally enhancing collection at the dorsolateral aspect of the forefoot at the level of the fourth and fifth metatarsals measuring 2.8 x 1.6 x 3.8 cm (transverse by AP by longitudinal), most consistent with an abscess. Surrounding soft tissues are edematous and swollen. Along the proximal margin of this collection, there is a tract which extends to the skin surface. This tract overlies the level of the . And fourth TMT joints. The extensor digitorum tendons pass just deep to this collection. No evidence of underlying infectious tenosynovitis. Tendons are intact without tears or tendinosis. Bone marrow signal is normal. No fracture or malalignment. Mild multifocal osteoarthritis is present at the MTP joints, most notably the first MTP joint. There is a bipartite medial hallux sesamoid. Minimal osteoarthritis in the midfoot. No joint effusions. There is diffuse atrophy of the intrinsic foot musculature with fatty replacement. Increased T2 signal within the residual muscle fibers is consistent with chronic changes of denervation atrophy from neuropathy. Imaged plantar fascia is unremarkable. Tendons are intact. No appreciable tenosynovitis. MR/MR foot RT wo/w con IMPRESSION: A 3.8 cm subcutaneous abscess at the dorsolateral aspect of the midfoot. No underlying osteomyelitis.
== END 2021-06-14 10:06 | disposition home or self-care (01) ==
LOC: HO.MRI 10:05
PROVIDERS: PCP Internal Medicine; Visit Provider Physician Assistant
DX: E11.621 Type 2 diabetes mellitus with foot ulcer (principal)
CPT/HCPCS: 73720; A9585

== ENCOUNTER → 2021-07-09 10:15 | Outpatient (BNVA) | payer OTHER, SELFPAY | PROVIDERS: PCP Internal Medicine; Visit Provider Nurse Practitioner Gerontology | DX: E11.22 Type 2 diabetes mellitus with diabetic chronic kidney disease (principal); I12.9 Hypertensive chronic kidney disease with stage 1 through stage 4 chronic kidney disease, or unspecified chronic kidney disease; N18.32 Chronic kidney disease, stage 3b; E11.65 Type 2 diabetes mellitus with hyperglycemia; E11.42 Type 2 diabetes mellitus with diabetic polyneuropathy; E78.5 Hyperlipidemia, unspecified; E55.9 Vitamin D deficiency, unspecified; E66.9 Obesity, unspecified; Z79.4 Long term (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 of insulin; Z68.36 Body mass index [BMI] 36.0-36.9, adult | CPT/HCPCS: 82947; 83036; 99212 ==

== ENCOUNTER 2021-12-27 12:38 | Outpatient (RCR) | payer OTHER, SELFPAY | END 2022-03-06 12:13 | disposition home or self-care (01) | LOC: HO.WCC 12:38 | PROVIDERS: PCP Internal Medicine; Visit Provider Surgery | DX: E11.621 Type 2 diabetes mellitus with foot ulcer (principal); L97.512 Non-pressure chronic ulcer of other part of right foot with fat layer exposed; E11.649 Type 2 diabetes mellitus with hypoglycemia without coma | CPT/HCPCS: 11042; 99213 ==

== ENCOUNTER → 2022-01-03 12:37 | Outpatient (BNVA) | payer OTHER, SELFPAY | PROVIDERS: PCP Internal Medicine; Visit Provider Physician Assistant | DX: E11.42 Type 2 diabetes mellitus with diabetic polyneuropathy (principal); M75.82 Other shoulder lesions, left shoulder | CPT/HCPCS: 20610; 99212; J1020 ==

== ENCOUNTER 2022-03-28 14:35 | Outpatient (REF) | payer OTHER, SELFPAY ==
--- NOTE | ~2022-03-28 | XR_ITS ---
EXAMINATION: XR CHEST CLINICAL INFORMATION: Bronchitis. COMPARISON: 05/16/2021 TECHNIQUE: 2 views of the chest were obtained. FINDINGS: No significant abnormality is noted involving the heart, lungs, mediastinum, bony thorax or soft tissues. XR/XR chest 2V IMPRESSION: Unremarkable examination.
[2022-03-28 15:38] LABS: Binax Now Covid-19 Ag Negative (Negative)
[2022-03-28 15:39] LABS: Binax Internal Control QC Valid
== END 2022-03-28 14:36 | disposition home or self-care (01) ==
LOC: HO.HMGCX 14:35
PROVIDERS: PCP Internal Medicine; Visit Provider Physician Assistant
DX: Z20.822 Contact with and (suspected) exposure to COVID-19 (principal); J40 Bronchitis, not specified as acute or chronic
CPT/HCPCS: 71046; 87811

== ENCOUNTER 2022-07-10 08:53 | Outpatient (REF) | payer OTHER, SELFPAY ==
[2022-07-10 09:12] LABS: MANUAL DIFF FLAG NO
[2022-07-10 10:35] LABS: Basophils Absolute Auto 0.1 X10*3/uL (0.0-0.2); Basophils Percent Auto 0.8 % (0-2); Eosinophils Absolute Auto 0.2 X10*3/uL (0.0-0.4); Eosinophils Percent Auto 3.1 % (0-4); Hematocrit 39.8 % (42.0-52.0); Hemoglobin 12.5 g/dl (14.0-18.0); Imm Gran Abs Auto 0.03 X10*3/uL (0.00-0.03); Imm Gran Pct Auto 0.5 % (0.0-0.4); Lymphocytes Absolute Auto 1.5 X10*3/uL (1.2-4.9); Lymphocytes Percent Auto 23.3 % (20-40); Mean Corpuscular HGB Conc 31.4 g/dl (31.0-36.0); Mean Corpuscular Hemoglobin 29.4 pg (27.0-33.0); Mean Corpuscular Volume 93.6 fL (80.0-98.0); Mean Platelet Volume 10.6 fL (9.4-12.4); Monocytes Absolute Auto 0.6 X10*3/uL (0.1-1.2); Monocytes Percent Auto 8.5 % (2-11); Neutrophils Absolute Auto 4.1 x10*3/uL (2.0-8.3); Neutrophils Percent Auto 63.8 % (45-73); Platelet Count 221 X10*3/uL (160-400); Red Blood Count 4.25 X10*6/uL (4.60-5.80); Red Cell Distribution Width 12.7 % (11.0-16.0); White Blood Count 6.5 X10*3/uL (4.8-10.8)
[2022-07-10 10:47] LABS: Estimated Average Glucose 194 mg/dL; Hemoglobin A1c % 8.4 %
[2022-07-10 10:50] LABS: Appearance Urine Clear; Color Urine Yellow; Glucose Urine UA Negative (Negative); Leukocyte Esterase Urine Negative (Negative); Nitrite Urine Negative (Negative); PH 6.5 (5.0-9.0); Specific Gravity - Urine 1.015 (1.005-1.025); UMIC TRIGGER UACC YES; Urine Blood Trace (Negative); Urine Ketones Negative (Negative); Urine Protein 300 (3+) mg/dL (Neg-Trace)
[2022-07-10 10:54] LABS: Bacteria Urine None Seen (None Seen); Hyaline Casts Urine 0-2 /LPF (0-2); RBC Urine 0-2 /HPF (0-2); Squamous Epithelial Cell Urine 0-2 /HPF (0-2); WBC Urine 0-5 /HPF (0-5)
[2022-07-10 11:28] LABS: TSH reflex Free T4 2.22 uIU/mL (0.32-4.0); Vitamin D 25-OH Total 15.4 ng/mL (>30)
[2022-07-10 11:31] LABS: Creatinine Urine 84.92 mg/dL
[2022-07-10 11:33] LABS: Alanine Aminotransferase 20 U/L (0-40); Alkaline Phosphatase 95 U/L (39-117); Aspartate Amino Transferase 18 U/L (5-37); Bilirubin Total 0.5 mg/dL (0.0-1.0); Blood Urea Nitrogen 35 mg/dL (9-16); Calcium 9.5 mg/dL (8.4-10.2); Cholesterol 204 mg/dL; Estimated Glomerular Filt Rate 29; Glucose Fasting 114 mg/dL (60-99); HDL Cholesterol 67 mg/dL; LDL Cholesterol Calculated 120 mg/dl; Total Protein 6.8 g/dL (6.5-8.0); Triglycerides 85 mg/dL
[2022-07-10 11:42] LABS: Microalbum/Creatinine Ratio Ur 2355.1 ug/mg cr; Microalbumin Urine > 2000.0 mg/L
[2022-07-10 11:46] LABS: Anion Gap 18 (12-20); Carbon Dioxide 25 mmol/L (22-29); Chloride 107 mmol/L (96-108); Potassium 6.1 mmol/L (3.3-5.1); Sodium 144 mmol/L (135-145)
== END 2022-07-10 08:54 | disposition home or self-care (01) ==
LOC: HO.LAB 08:53
PROVIDERS: PCP Internal Medicine; Visit Provider Internal Medicine
DX: E11.9 Type 2 diabetes mellitus without complications (principal); E78.00 Pure hypercholesterolemia, unspecified; E55.9 Vitamin D deficiency, unspecified; I10 Essential (primary) hypertension
CPT/HCPCS: 36415; 80053; 80061; 81001; 82043; 82306; 83036; 84443; 85025

== ENCOUNTER 2022-08-20 08:43 | Emergency (ER) | payer OTHER, SELFPAY ==
[2022-08-20 09:36] VITALS: BP 186/79; PULSE 88; RESP 18; TEMP 36.1; O2SAT 100; BMI 36.0
--- NOTE | 2022-08-20 10:22 | ED.SKABFB ---
HPI - Skin/Abscess/Foreign Bdy General Chief complaint: Skin/Abscess/Foreign Body Stated complaint: Cyst Time Seen by Provider: 08/20/22 09:37 Source: patient Mode of arrival: ambulatory History of Present Illness HPI narrative: 52-year-old male with a past medical history of anxiety, depression, HLD, diabetes, presenting to the ED complaining of painful cyst to left groin x few days. Admits has been applying warm compresses without relief. Denies active drainage from area, difficulty/inability urinate/defecate. Denies abdominal pain, nausea/vomiting, fever MD complaint: abscess/boil Related Data Home Medications Medication Instructions Recorded Confirmed insulin glargine 100 unit/mL (3 26 unit subcut DAILY 04/25/22 mL) subcutaneous pen (Lantus Solostar U-100 Insulin) Previous Rx's Medication Instructions Recorded acetaminophen 500 mg tablet 1,000 mg PO QID PRN fever or pain 03/20/21 (Tylenol Extra Strength) #14 tabs cholecalciferol (vitamin D3) 50 50 mcg PO DAILY #30 caps 06/05/21 mcg (2,000 unit) capsule pen needle, diabetic 32 gauge x 1 ea subcut QID #120 ea 08/13/21 (BD Ultra-Fine Odette Pen Needle) flash glucose sensor (FreeStyle #2 kits 10/17/21 Lida 14 Day Sensor kit) insulin lispro 100 unit/mL 8 unit (0.08 mL) subcut TID 30 10/24/21 subcutaneous pen (Admelog SoloStar days #15 mL U-100 Insulin lispro) amlodipine 10 mg tablet 10 mg PO DAILY #30 tabs 01/15/22 atorvastatin 80 mg tablet 80 mg PO DAILY 90 days #90 tabs 01/28/22 insulin lispro 100 unit/mL 8 unit (0.08 mL) subcut TID 30 02/27/22 subcutaneous pen (Humalog KwikPen days #15 mL (U-100) Insulin) dulaglutide 3 mg/0.5 mL 3 mg (0.5 mL) subcut QWEEK 28 days 03/02/22 subcutaneous pen injector #2 mL (Trulicity) hydralazine 10 mg tablet 10 mg PO BID 30 days #60 tabs 04/25/22 lisinopril 20 mg tablet 40 mg PO DAILY #180 tabs 05/31/22 oxycodone 5 mg tablet 5 mg PO BID-TID PRN severe pain 28 08/07/22 days #84 tabs cephalexin 500 mg capsule 500 mg PO QID 7 days #28 caps 08/20/22 doxycycline hyclate 100 mg tablet 100 mg PO BID 7 days #14 tabs 08/20/22 Allergies Allergy/AdvReac Type Severity Reaction Status Date / Time No Known Allergies Allergy Verified 04/25/22 16:35 Review of Systems Review of Systems: Constitutional: No Fever, No Chills ENT/Mouth: No Ear Pain, No Nasal Congestion, No sore throat, No Rhinorrhea, No Swallowing Difficulty Cardiovascular: No Chest Pain, No SOB Respiratory: No Cough, No Sputum Gastrointestinal: No Nausea, No Vomiting, No Diarrhea, No Constipation, No Abdominal pain Genitourinary: No Dysuria, No Urgency, No Flank Pain Musculoskeletal: No joint pain, No Myalgias, No Joint Swelling Skin: + Skin Lesions, No rash Neuro: No Weakness, No Numbness, No Paresthesias Yes all other systems are reviewed and are negative Constitutional: Constitutional: Reports as per [facility] Past Medical History Attestation statement: The following information was validated with the patient. 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 Type 2 diabetes mellitus with hyperglycemia, with long-term current use of insulin Vitamin D deficiency Surgical History History of nasal surgery Family History Family History Father Lung cancer Mother Hypertension Coronary artery disease CVD (cardiovascular disease) TIA (transient ischemic attack) Sister Diabetes Maternal Uncle Diabetes Other Mental health problem Social History Social History Household Members: None Housing: Apartment Do you presently have visiting nurse or other home services: No Alcohol intake: current Alcohol intake frequency: holidays/special occasions only Patient Tobacco Use Status: Never used Tobacco e-Cigarette/Vaping Use: Never Used Second Hand Smoke Exposure: Yes Advance Directives: No Advance Directives Information Provided: Yes service: No Current occupational status: unemployed Cognitive needs: No Hearing needs: No Vision needs: No Physical Exam Vital Signs: Vital Signs: Last Vital Signs Temp 97.0 F 08/20/22 09:36 Pulse 88 08/20/22 09:36 Resp 18 08/20/22 09:36 BP 186/79 H 08/20/22 09:36 Pulse Ox 100 08/20/22 09:36 O2 Del Method 08/20/22 09:36 BMI result Body Mass Index 36.0 Const: General: cooperative, healthy appearing and no acute distress Orientation/consciousness: patient oriented x3 Limitations: no limitations HEENT: Head: Yes normal to inspection and Yes atraumatic Ears: hearing grossly normal bilaterally General nose exam: Normal external nose present Face and sinus: Yes normal facial exam Eyes: General: appearance normal, both eyes and all related structures EOM: EOMs intact bilaterally Neck: Neck: Yes normal visual inspection and Yes no meningeal signs Resp: Effort & Inspection: normal respiratory effort and no respiratory distress Cardio: Rate: regular rate Heart sounds: S1 normal heart sound present and S2 normal heart sound present GI: Inspection: Yes normal to inspection Palpation (GI): Soft to palpation, nontender, no guarding and not rigid : Other: + indurated erythematous abscess to left suprapubic region with extending erythema. Tender to palpation. No fluctuance, or active drainage. No evidence of Nayeli's gangrene. No testicular tenderness Skin: Rashes: no rashes Wounds: no wounds Neuro: General: patient oriented x3, tone normal and no meningeal signs Gait exam (Neuro): Normal gait present Extrem: General: Yes normal to inspection Medical Decision Making Medical Decision Making MDM Narrative: 52-year-old male with a past medical history of anxiety, depression, HLD, diabetes, presenting to the ED complaining of painful cyst to left groin x few days. On exam vital signs stable, NAD/nontoxic-appearing, physical exam as above indurated abscess to suprapubic region. No testicular involvement. Abdomen soft and nontender. No evidence of Nayeli gangrene. No active drainage. Concern for infected abscess, no I & D at this time Plan: P.o. antibiotics Results discussed with patient including worrisome signs and symptoms and strict return precautions, and when to return to the emergency department. They verbalized understanding and feel safe for discharge at this time. Differential Diagnosis Differential Diagnoses: The differential diagnosis associated with the presentation includes As above Prescription Management I considered prescription management with: Pain Medication and Antibiotic Discharge Plan Discharge Clinical Impression: Abscess Patient Disposition: Home, Self-Care Instructions: Abscess (ED), Abscess Follow-up (ED) Additional Instructions: You have an infected abscess Continue to apply warm compresses. Keflex and doxycycline or antibiotics please use as prescribed If area turns to espinoza, is open and draining, is tossing lines created in the emergency department, you have fever, difficulty urinating or having a bowel movement return to the ED immediately Prescriptions: New cephalexin 500 mg capsule 500 mg PO QID 7 Days Qty: 28 0RF doxycycline hyclate 100 mg tablet 100 mg PO BID 7 Days Qty: 14 0RF No Action cholecalciferol (vitamin D3) 50 mcg (2,000 unit) capsule 50 mcg PO DAILY Qty: 30 5RF pen needle, diabetic [BD Ultra-Fine Odette Pen Needle] 32 gauge x 5/32 needle 1 ea subcut QID Qty: 120 11RF (DME) FreeStyle Lida 14 Day Sensor Kit See Rx Instructions .ROUTE .COMPLEX Qty: 2 11RF Dose Instruction: USE DIRECTED EVERY 2 WEEKS Rx Instructions: USE DIRECTED EVERY 2 WEEKS insulin lispro [Admelog SoloStar U-100 Insulin] 100 unit/mL insulin pen 8 unit subcut TID 30 Days Qty: 15 6RF Rx Instructions: + 2 units for bg over 200 amlodipine 10 mg tablet 10 mg PO DAILY Qty: 30 5RF atorvastatin 80 mg tablet 80 mg PO DAILY 90 Days Qty: 90 1RF insulin lispro [Humalog KwikPen Insulin] 100 unit/mL insulin pen 8 unit subcut TID 30 Days Qty: 15 3RF Rx Instructions: + 2 units for bg over 200 Trulicity 3 mg/0.5 mL pen injector 3 mg subcut QWEEK 28 Days Qty: 2 6RF lisinopril 20 mg tablet 40 mg PO DAILY Qty: 180 0RF oxycodone 5 mg tablet 5 mg PO BID-TID PRN (Reason: severe pain) 28 Days Qty: 84 0RF acetaminophen [Tylenol Extra Strength] 500 mg tablet 1,000 mg PO QID PRN (Reason: fever or pain) Qty: 14 0RF Lantus Solostar U-100 Insulin 100 unit/mL (3 mL) insulin pen 26 unit subcut DAILY hydralazine 10 mg tablet 10 mg PO BID 30 Days Qty: 60 3RF Referrals: Michael Garcia MD [Primary Care Provider] - 3 days Interventions: ED Discharge Assessment Last Done: 08/20/22 10:39 Discharge Date/Time: 08/20/22 10:40
== END 2022-08-20 10:40 | disposition home or self-care (01) ==
PROVIDERS: Emergency Provider Emergency Medicine; PCP Internal Medicine
DX: L02.214 Cutaneous abscess of groin (principal)
CPT/HCPCS: 99282; 99283

== ENCOUNTER 2022-08-22 12:49 | Emergency (ER) | payer OTHER, SELFPAY ==
[2022-08-22 13:11] VITALS: BP 163/90; PULSE 94; RESP 16; TEMP 36.8; O2SAT 99; BMI 36.0
--- NOTE | 2022-08-22 13:11 | ED_ITS ---
HPI - Skin/Abscess/Foreign Bdy General Chief complaint: General Medical <Lisa GaribayJUANY tsai - Last Filed: 08/22/22 13:17> Stated complaint: Cyst <Lisa Mark JUANY Doan - Last Filed: 08/22/22 13:17> Time Seen by Provider: 08/22/22 14:48 <Lisa Marie JUANY Doan - Last Filed: 08/22/22 13:17> Source: patient, RN notes reviewed and old records reviewed <Tonny Romero - Last Filed: 08/22/22 15:54> Mode of arrival: ambulatory <Tonny Nick - Last Filed: 08/22/22 15:54> Limitations: no limitations <Tonny Nick - Last Filed: 08/22/22 15:54> History of Present Illness HPI narrative: 52-year-old male with past medical history significant for diabetes, chronic kidney disease, anxiety, depression obesity, hyperlipidemia, hypertension presents for evaluation of an abscess. Patient reports he was diagnosed with an abscess here, 2 days ago. He has had pain and swelling to his left groin for the last 5 days. He denies any fevers, chills. He was prescribed doxycycline and cephalexin for which she has been taking for last 2 days. Next he states the redness seems to be improving. He states that the abscess seems softer and ?feels like it is about to pop. ? He would like it to be incised <Tonny Romero - Last Filed: 08/22/22 15:54> Related Data Home medications: Home Medications Medication Instructions Recorded Confirmed insulin glargine 100 unit/mL (3 26 unit subcut DAILY 04/25/22 mL) subcutaneous pen (Lantus Solostar U-100 Insulin) Previous Rx's Medication Instructions Recorded acetaminophen 500 mg tablet 1,000 mg PO QID PRN fever or pain 03/20/21 (Tylenol Extra Strength) #14 tabs cholecalciferol (vitamin D3) 50 50 mcg PO DAILY #30 caps 06/05/21 mcg (2,000 unit) capsule pen needle, diabetic 32 gauge x 1 ea subcut QID #120 ea 08/13/21 (BD Ultra-Fine Odette Pen Needle) flash glucose sensor (FreeStyle #2 kits 10/17/21 Lida 14 Day Sensor kit) insulin lispro 100 unit/mL 8 unit (0.08 mL) subcut TID 30 10/24/21 subcutaneous pen (Admelog SoloStar days #15 mL U-100 Insulin lispro) amlodipine 10 mg tablet 10 mg PO DAILY #30 tabs 01/15/22 atorvastatin 80 mg tablet 80 mg PO DAILY 90 days #90 tabs 01/28/22 insulin lispro 100 unit/mL 8 unit (0.08 mL) subcut TID 30 02/27/22 subcutaneous pen (Humalog KwikPen days #15 mL (U-100) Insulin) dulaglutide 3 mg/0.5 mL 3 mg (0.5 mL) subcut QWEEK 28 days 03/02/22 subcutaneous pen injector #2 mL (Trulicity) hydralazine 10 mg tablet 10 mg PO BID 30 days #60 tabs 04/25/22 lisinopril 20 mg tablet 40 mg PO DAILY #180 tabs 05/31/22 oxycodone 5 mg tablet 5 mg PO BID-TID PRN severe pain 28 08/07/22 days #84 tabs cephalexin 500 mg capsule 500 mg PO QID 7 days #28 caps 08/20/22 doxycycline hyclate 100 mg tablet 100 mg PO BID 7 days #14 tabs 08/20/22 <Lisa Doan CNP - Last Filed: 08/22/22 13:17> Allergies/Adverse reactions: Allergies Allergy/AdvReac Type Severity Reaction Status Date / Time No Known Allergies Allergy Verified 04/25/22 16:35 <Lisa Doan CNP - Last Filed: 08/22/22 13:17> Review of Systems Constitutional: Constitutional: Reports as per HPI, Denies chills and Denies fatigue <Tonny Romero - Last Filed: 08/22/22 15:54> Cardiovascular: Cardiovascular: Denies chest pain and Denies dyspnea <Tonny Romero - Last Filed: 08/22/22 15:54> Respiratory: Respiratory: Denies cough and Denies dyspnea <Tonny Romero - Last Filed: 08/22/22 15:54> Gastrointestinal: Gastrointestinal: Denies abdominal pain, Denies constipation and Denies vomiting <Tonny Lewis Filed: 08/22/22 15:54> Genitourinary: Genitourinary: Denies difficulty urinating and Denies dysuria <Tonny Romero - Last Filed: 08/22/22 15:54> Integumentary/Breasts: Skin/Breast: Reports other (Abscess to left groin) <Tonny Romero - Last Filed: 08/22/22 15:54> Endocrine: Endocrine: Denies fatigue <Tonny Romero - Last Filed: 08/22/22 15:54> [facility] Past Medical History Medical History: Medical History Allergic rhinitis Anemia Anxiety Benign essential hypertension Chronic kidney disease (CKD), stage III (moderate) Depression Diabetic polyneuropathy Erectile dysfunction Essential hypertension History of foot ulcer 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 Obesity (BMI 30-39.9) Pure hypercholesterolemia Right foot ulcer Rotator cuff arthropathy of left shoulder 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 Type 2 diabetes mellitus with hyperglycemia, with long-term current use of insulin Vitamin D deficiency <Lisa Doan CNP - Last Filed: 08/22/22 13:17> Surgical History: Surgical History History of nasal surgery <Lisa Doan CNP - Last Filed: 08/22/22 13:17> Family History Family History: Family History Father Lung cancer Mother Hypertension Coronary artery disease CVD (cardiovascular disease) TIA (transient ischemic attack) Sister Diabetes Maternal Uncle Diabetes Other Mental health problem <Lisa Doan CNP - Last Filed: 08/22/22 13:17> Social History Social History: Social History Household Members: None Housing: Apartment Do you presently have visiting nurse or other home services: No Alcohol intake: current Alcohol intake frequency: holidays/special occasions only Patient Tobacco Use Status: Never used Tobacco e-Cigarette/Vaping Use: Never Used Second Hand Smoke Exposure: Yes Advance Directives: No Advance Directives Information Provided: Yes service: No Current occupational status: unemployed Cognitive needs: No Hearing needs: No Vision needs: No <Lisa Doan CNP - Last Filed: 08/22/22 13:17> Physical Exam Vital Signs: Vital Signs: Last Vital Signs Temp 98.3 F 08/22/22 13:11 Pulse 94 08/22/22 13:11 Resp 16 08/22/22 13:11 BP 163/90 H 08/22/22 13:11 Pulse Ox 99 08/22/22 13:11 O2 Del Method 08/22/22 13:11 BMI result Body Mass Index 36.0 <Lisa Doan CNP - Last Filed: 08/22/22 13:17> Vital Signs: Last Vital Signs Temp 98.3 F 08/22/22 13:11 Pulse 94 08/22/22 13:11 Resp 16 08/22/22 13:11 BP 163/90 H 08/22/22 13:11 Pulse Ox 99 08/22/22 13:11 O2 Del Method 08/22/22 13:11 BMI result Body Mass Index 36.0 <Tonny Romero - Last Filed: 08/22/22 15:54> Vital Signs: Last Vital Signs Temp 98.3 F 08/22/22 13:11 Pulse 94 08/22/22 13:11 Resp 16 08/22/22 13:11 BP 163/90 H 08/22/22 13:11 Pulse Ox 99 08/22/22 13:11 O2 Del Method 08/22/22 13:11 BMI result Body Mass Index 36.0 <Christiano Robert NP - Last Filed: 08/22/22 15:53> Const: General: healthy appearing, comfortable and no acute distress <Tonny Romero - Last Filed: 08/22/22 15:54> Orientation/consciousness: patient oriented x3 <Tonny Romero - Last Filed: 08/22/22 15:54> HEENT: Head: Yes normocephalic and Yes atraumatic <Tonny Romero - Last Filed: 08/22/22 15:54> Resp: Effort & Inspection: normal respiratory effort and able to speak in complete sentences <Tonnyrommel Romero - Last Filed: 08/22/22 15:54> Auscultation: clear to auscultation bilaterally <Tonny Romero - Last Filed: 08/22/22 15:54> Skin: Other: There is an approximately 3 x 7 cm area of induration with some slight fluctuance in the left inguinal region. That erythema surrounding this is well within the pre jacquie borders of a surgical pen. There is no active drainage. The area is exquisitely tender to palpation <Tonny PedroJose Alfredo - Last Filed: 08/22/22 15:54> Neuro: General: patient oriented x3 <Tonny Romero - Last Filed: 08/22/22 15:54> Course Course Course Narrative: This is an RME: Additional HPI, ROS, PE not included below will be deferred to primary provider. Patient is a 52-year-old male history of diabetes, who presents to emergency department for evaluation of a cyst to his left groin. Onset was about 5 days ago. He was seen in the emergency department 2 days ago, states that it was not amenable to incision and drainage at that time, he was given a prescription for 2 antibiotics which she has been compliant with. He reports increasing redness, pain, swelling, and the area is softer to touch than previously. Denies fevers or chills. Denies extension toward the perineum or testicular involvement. Plan: placed back in waiting room pending bed availability for further evaluation and treatment <Lisa Doan CNP - Last Filed: 08/22/22 13:17> Reevaluation(s) Reevaluation #1: I&D done by myself (christiano robert APRN) and diamond PA student, See procedure note. <Christiano Robert NP - Last Filed: 08/22/22 15:53> Medications Administered Discontinued Medications Generic Name Dose Route Start Last Admin Trade Name Freq PRN Reason Stop Dose Admin Lidocaine HCl 5 ml 08/22/22 14:53 08/22/22 15:42 Lidocaine Hcl 1 % Mpf 5 Ml Vial INFILTRATI 08/22/22 14:54 5 ml ONCE ONE Administration <Lisa Doan CNP - Last Filed: 08/22/22 13:17> Medications Administered Discontinued Medications Generic Name Dose Route Start Last Admin Trade Name Freq PRN Reason Stop Dose Admin Lidocaine HCl 5 ml 08/22/22 14:53 08/22/22 15:42 Lidocaine Hcl 1 % Mpf 5 Ml Vial INFILTRATI 08/22/22 14:54 5 ml ONCE ONE Administration <Tonny Romero - Last Filed: 08/22/22 15:54> Medications Administered Discontinued Medications Generic Name Dose Route Start Last Admin Trade Name Freq PRN Reason Stop Dose Admin Lidocaine HCl 5 ml 08/22/22 14:53 08/22/22 15:42 Lidocaine Hcl 1 % Mpf 5 Ml Vial INFILTRATI 08/22/22 14:54 5 ml ONCE ONE Administration <Christiano Robert NP - Last Filed: 08/22/22 15:53> Medical Decision Making Medical Decision Making MDM Narrative: The patient has a well-demarcated abscess in the left lingular region. Does not extend down toward his groin, no evidence of Nayeli's gangrene. The erythema appears to be well within the previously marked borders. However the patient reports increased pain to the abscess and is wondering if the abscess can be drained. We will attempt incision and drainage <Tonny Romero - Last Filed: 08/22/22 15:54> Differential Diagnosis Abscess Cellulitis Sebaceous cyst Nayeli's gangrene Lymphadenopathy <Tonny Romero - Last Filed: 08/22/22 15:54> Procedures Abscess I/D Site: other (groin ) <Christiano Robert NP - Last Filed: 08/22/22 15:53> Side (if applicable): left <Christiano Robert NP - Last Filed: 08/22/22 15:53> Local Anesthetic: lidocaine 1% <Christiano Robert NP - Last Filed: 08/22/22 15:53> Amount of anesthesia used (mL): 5 <Christiano Roebrt NP - Last Filed: 08/22/22 15:53> Technique: incised with blade <Christiano Robert NP - Last Filed: 08/22/22 15:53> Amount of fluid expressed (mL): 10 <Christiano Robert NP - Last Filed: 08/22/22 15:53> Sent for culture/gram staining?: No <Christiano Robert NP - Last Filed: 08/22/22 15:53> Irrigation: No <Christiano Robert NP - Last Filed: 08/22/22 15:53> Packing used?: iodoform <Christiano Robert NP - Last Filed: 08/22/22 15:53> Discharge Plan Discharge Clinical Impression: Abscess of groin, left <Lisa Doan CNP - Last Filed: 08/22/22 13:17> Patient Disposition: Home, Self-Care <Lisa Doan CNP - Last Filed: 08/22/22 13:17> Additional Instructions: Continue both antibiotics as prescribed Continue doing warm compresses every 4 hours for 15 minutes Return in 48-72 hours for packing removal <Lisa Doan CNP - Last Filed: 08/22/22 13:17> Prescriptions: No Action cholecalciferol (vitamin D3) 50 mcg (2,000 unit) capsule 50 mcg PO DAILY Qty: 30 5RF pen needle, diabetic [BD Ultra-Fine Odette Pen Needle] 32 gauge x 5/32 needle 1 ea subcut QID Qty: 120 11RF (DME) FreeStyle Lida 14 Day Sensor Kit See Rx Instructions .ROUTE .COMPLEX Qty: 2 11RF Dose Instruction: USE DIRECTED EVERY 2 WEEKS Rx Instructions: USE DIRECTED EVERY 2 WEEKS insulin lispro [Admelog SoloStar U-100 Insulin] 100 unit/mL insulin pen 8 unit subcut TID 30 Days Qty: 15 6RF Rx Instructions: + 2 units for bg over 200 amlodipine 10 mg tablet 10 mg PO DAILY Qty: 30 5RF atorvastatin 80 mg tablet 80 mg PO DAILY 90 Days Qty: 90 1RF insulin lispro [Humalog KwikPen Insulin] 100 unit/mL insulin pen 8 unit subcut TID 30 Days Qty: 15 3RF Rx Instructions: + 2 units for bg over 200 Trulicity 3 mg/0.5 mL pen injector 3 mg subcut QWEEK 28 Days Qty: 2 6RF lisinopril 20 mg tablet 40 mg PO DAILY Qty: 180 0RF oxycodone 5 mg tablet 5 mg PO BID-TID PRN (Reason: severe pain) 28 Days Qty: 84 0RF acetaminophen [Tylenol Extra Strength] 500 mg tablet 1,000 mg PO QID PRN (Reason: fever or pain) Qty: 14 0RF cephalexin 500 mg capsule 500 mg PO QID 7 Days Qty: 28 0RF doxycycline hyclate 100 mg tablet 100 mg PO BID 7 Days Qty: 14 0RF Lantus Solostar U-100 Insulin 100 unit/mL (3 mL) insulin pen 26 unit subcut DAILY hydralazine 10 mg tablet 10 mg PO BID 30 Days Qty: 60 3RF <Lisa Doan, NEWS TECHNICAL DIRECTOR - Last Filed: 08/22/22 13:17>
[2022-08-22] MEDS: Lidocaine HCl 1 % MPF 5 ML VIAL INFILTRATI (15:42)
== END 2022-08-22 16:04 | disposition home or self-care (01) ==
PROVIDERS: Emergency Provider Emergency Medicine Emergency Medical Services; PCP Internal Medicine
DX: L02.214 Cutaneous abscess of groin (principal); E11.9 Type 2 diabetes mellitus without complications; Z79.899 Other long term (current) drug therapy; Z79.4 Long term (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 of insulin
CPT/HCPCS: 10060; 99282; 99284

== ENCOUNTER 2022-08-25 08:42 | Emergency (ER) | payer OTHER, SELFPAY ==
[2022-08-25 08:51] VITALS: BP 189/80; PULSE 92; RESP 18; O2SAT 99; BMI 36.0
--- NOTE | 2022-08-25 09:08 | ED.WOUNDLAC ---
HPI - Wound/Laceration General Chief Complaint: Wound/Laceration Stated Complaint: Cyst Time Seen by Provider: 08/25/22 09:07 Source: patient Mode of arrival: ambulatory History of Present Illness HPI narrative: 52-year-old male with a past medical history of anxiety, depression, HLD, diabetes, presenting to the ED for abscess recheck and packing removal. Patient was seen and treated in our ED on 08/20 diagnosed with abscess to left groin/suprapubic region prescribed Doxycycline and Keflex, then subsequently had I&D on 08/22 with packing placement. Reports overall area improved, denies drainage present. Reports compliance with antibiotics. Denies fever, chills, dysuria/hematuria, abdominal pain. Onset (ago): day(s) Related Data Home Medications Medication Instructions Recorded Confirmed insulin glargine 100 unit/mL (3 26 unit subcut DAILY 04/25/22 mL) subcutaneous pen (Lantus Solostar U-100 Insulin) Previous Rx's Medication Instructions Recorded acetaminophen 500 mg tablet 1,000 mg PO QID PRN fever or pain 03/20/21 (Tylenol Extra Strength) #14 tabs cholecalciferol (vitamin D3) 50 50 mcg PO DAILY #30 caps 06/05/21 mcg (2,000 unit) capsule pen needle, diabetic 32 gauge x 1 ea subcut QID #120 ea 08/13/21 (BD Ultra-Fine Odette Pen Needle) flash glucose sensor (FreeStyle #2 kits 10/17/21 Lida 14 Day Sensor kit) insulin lispro 100 unit/mL 8 unit (0.08 mL) subcut TID 30 10/24/21 subcutaneous pen (Admelog SoloStar days #15 mL U-100 Insulin lispro) amlodipine 10 mg tablet 10 mg PO DAILY #30 tabs 01/15/22 atorvastatin 80 mg tablet 80 mg PO DAILY 90 days #90 tabs 01/28/22 insulin lispro 100 unit/mL 8 unit (0.08 mL) subcut TID 30 02/27/22 subcutaneous pen (Humalog KwikPen days #15 mL (U-100) Insulin) dulaglutide 3 mg/0.5 mL 3 mg (0.5 mL) subcut QWEEK 28 days 03/02/22 subcutaneous pen injector #2 mL ([facility]) hydralazine 10 mg tablet 10 mg PO BID 30 days #60 tabs 04/25/22 lisinopril 20 mg tablet 40 mg PO DAILY #180 tabs 05/31/22 oxycodone 5 mg tablet 5 mg PO BID-TID PRN severe pain 28 08/07/22 days #84 tabs cephalexin 500 mg capsule 500 mg PO QID 7 days #28 caps 08/20/22 doxycycline hyclate 100 mg tablet 100 mg PO BID 7 days #14 tabs 08/20/22 doxycycline hyclate 100 mg capsule 100 mg PO BID #19 caps 08/22/22 doxycycline hyclate 100 mg tablet 100 mg PO BID #19 tabs 08/22/22 cephalexin 500 mg capsule 500 mg PO QID 3 days #12 caps 08/25/22 doxycycline hyclate 100 mg tablet 100 mg PO BID 3 days #6 tabs 08/25/22 Allergies Allergy/AdvReac Type Severity Reaction Status Date / Time No Known Allergies Allergy Verified 04/25/22 16:35 Review of Systems Review of Systems: Constitutional: No Fever, No Chills ENT/Mouth: No Ear Pain, No Nasal Congestion, No Sinus Pain, No Hoarseness, No sore throat, No Rhinorrhea, No Swallowing Difficulty Cardiovascular: No Chest Pain, No SOB Respiratory: No Cough, No Sputum, No Wheezing Gastrointestinal: No Nausea, No Vomiting, No Diarrhea, No Constipation, No Abdominal pain Genitourinary: No Dysuria, No Urinary Frequency, No Hematuria, No Flank Pain Musculoskeletal: No joint pain, No Myalgias, No Joint Swelling Skin: + Skin Lesions, No rash Neuro: No Weakness, No Numbness, No Paresthesias Yes all other systems are reviewed and are negative Constitutional: Constitutional: Reports as per [facility] Past Medical History Attestation statement: The following information was validated with the patient. 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 Type 2 diabetes mellitus with hyperglycemia, with long-term current use of insulin Vitamin D deficiency Surgical History History of nasal surgery Family History Family History Father Lung cancer Mother Hypertension Coronary artery disease CVD (cardiovascular disease) TIA (transient ischemic attack) Sister Diabetes Maternal Uncle Diabetes Other Mental health problem Social History Social History Household Members: None Housing: Apartment Do you presently have visiting nurse or other home services: No Alcohol intake: current Alcohol intake frequency: holidays/special occasions only Patient Tobacco Use Status: Never used Tobacco e-Cigarette/Vaping Use: Never Used Second Hand Smoke Exposure: Yes Advance Directives: No Advance Directives Information Provided: No service: No Current occupational status: unemployed Cognitive needs: No Hearing needs: No Vision needs: No Physical Exam Vital Signs: Vital Signs: Last Vital Signs Pulse 92 08/25/22 08:51 Resp 18 08/25/22 08:51 BP 189/80 H 08/25/22 08:51 Pulse Ox 99 08/25/22 08:51 O2 Del Method 08/25/22 08:51 BMI result Body Mass Index 36.0 Const: General: cooperative, healthy appearing and no acute distress Orientation/consciousness: patient oriented x3 Limitations: no limitations HEENT: Head: Yes normal to inspection and Yes atraumatic Ears: hearing grossly normal bilaterally General nose exam: Normal external nose present Face and sinus: Yes normal facial exam Eyes: General: appearance normal, both eyes and all related structures EOM: EOMs intact bilaterally Neck: Neck: Yes normal visual inspection and Yes no meningeal signs Resp: Effort & Inspection: normal respiratory effort and no respiratory distress Cardio: Rate: regular rate Heart sounds: S1 normal heart sound present and S2 normal heart sound present GI: Other: + appropriately healing abscess to left suprapubic region with packing in place. Small erythema, significantly improved from prior created lines, mild induration. No fluctuance. Inspection: Yes normal to inspection Palpation (GI): Soft to palpation, nontender, no guarding and not rigid Skin: Rashes: no rashes Wounds: no wounds Neuro: General: patient oriented x3, tone normal and no meningeal signs Gait exam (Neuro): Normal gait present Extrem: General: Yes normal to inspection Course Course Course Narrative: Results discussed with patient including worrisome signs and symptoms and strict return precautions, and when to return to the emergency department. They verbalized understanding and feel safe for discharge at this time. Medical Decision Making Medical Decision Making MDM Narrative: 52-year-old male with a past medical history of anxiety, depression, HLD, diabetes, presenting to the ED for abscess recheck and packing removal. Patient was seen and treated in our ED on 08/20 diagnosed with abscess to left groin/suprapubic region prescribed Doxycycline and Keflex, then subsequently had I&D on 08/22 with packing placement. On exam vital signs stable, NAD, nontoxic appearing, physical exam as above. Appropriately healing abscess to left suprapubic region, packing removed was scant bloody discharge expressed, no pus. No warmth. No fluctuance. Plan: Extent antibiotics to a total of 10 day course. Encouraged warm compresses Please refer to course for remaining clinical decision making, interpretation of labs/imaging results, and discussions with consultants and/or family members. Differential Diagnosis Differential Diagnoses: The differential diagnosis associated with the presentation includes As above Admission/Observation Consideration of admission/observation: Escalation of care including admission/observation considered Lab Data [facility] Lab Attestation statement: I reviewed the patient's lab results. Radiology Impression Discussion of test interpretation with radiology: I have reviewed the radiologist's reading. External Record Review External record reviewed: Inpatient record, Office record, Outpatient record, Prior outpatient labs, Prior outpatient radiology, Primary care record and Outside ED record Procedures Procedure Narrative Procedure Narrative: Abscess Packing Removal No complications Discharge Plan Discharge Clinical Impression: Abscess packing removal Patient Disposition: Home, Self-Care Instructions: Abscess Follow-up (ED) Additional Instructions: Please continue taking previously prescribed antibiotics, will extend them for 3 additional days making a total 10 days. Continue to apply warm compresses at home If area becomes increasingly red/inflamed, has drainage re of fever return to the ED Prescriptions: New cephalexin 500 mg capsule 500 mg PO QID 3 Days Qty: 12 0RF doxycycline hyclate 100 mg tablet 100 mg PO BID 3 Days Qty: 6 0RF No Action cholecalciferol (vitamin D3) 50 mcg (2,000 unit) capsule 50 mcg PO DAILY Qty: 30 5RF pen needle, diabetic [BD Ultra-Fine Odette Pen Needle] 32 gauge x 5/32 needle 1 ea subcut QID Qty: 120 11RF (DME) FreeStyle Lida 14 Day Sensor Kit See Rx Instructions .ROUTE .COMPLEX Qty: 2 11RF Dose Instruction: USE DIRECTED EVERY 2 WEEKS Rx Instructions: USE DIRECTED EVERY 2 WEEKS insulin lispro [Admelog SoloStar U-100 Insulin] 100 unit/mL insulin pen 8 unit subcut TID 30 Days Qty: 15 6RF Rx Instructions: + 2 units for bg over 200 amlodipine 10 mg tablet 10 mg PO DAILY Qty: 30 5RF atorvastatin 80 mg tablet 80 mg PO DAILY 90 Days Qty: 90 1RF insulin lispro [Humalog KwikPen Insulin] 100 unit/mL insulin pen 8 unit subcut TID 30 Days Qty: 15 3RF Rx Instructions: + 2 units for bg over 200 Trulicity 3 mg/0.5 mL pen injector 3 mg subcut QWEEK 28 Days Qty: 2 6RF lisinopril 20 mg tablet 40 mg PO DAILY Qty: 180 0RF oxycodone 5 mg tablet 5 mg PO BID-TID PRN (Reason: severe pain) 28 Days Qty: 84 0RF acetaminophen [Tylenol Extra Strength] 500 mg tablet 1,000 mg PO QID PRN (Reason: fever or pain) Qty: 14 0RF cephalexin 500 mg capsule 500 mg PO QID 7 Days Qty: 28 0RF doxycycline hyclate 100 mg tablet 100 mg PO BID 7 Days Qty: 14 0RF doxycycline hyclate 100 mg capsule 100 mg PO BID Qty: 19 0RF doxycycline hyclate 100 mg tablet 100 mg PO BID Qty: 19 0RF Lantus Solostar U-100 Insulin 100 unit/mL (3 mL) insulin pen 26 unit subcut DAILY hydralazine 10 mg tablet 10 mg PO BID 30 Days Qty: 60 3RF Referrals: Michael Garcia MD [Primary Care Provider] - 5 days Interventions: ED Discharge Assessment Last Done: 08/25/22 09:28 Discharge Date/Time: 08/25/22 09:29
== END 2022-08-25 09:29 | disposition home or self-care (01) ==
PROVIDERS: Emergency Provider Student in an Organized Health Care Education/Training Program; PCP Internal Medicine
DX: Z48.01 Encounter for change or removal of surgical wound dressing (principal); Z79.899 Other long term (current) drug therapy
CPT/HCPCS: 99282

== ENCOUNTER 2023-01-17 14:25 | Outpatient (AMB) | payer OTHER, SELFPAY ==
[2023-01-17 14:28] VITALS: BP 152/90; PULSE 93; O2SAT 98; BMI 36.8
--- NOTE | 2023-01-17 14:28 | A.OFFPC_ITS ---
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 Allergies No Known Allergies Allergy (Verified 01/17/23 14:41) Medication List - Last Reconciled 01/17/23 by EMEKA Irene amlodipine 10 mg PO DAILY atorvastatin 80 mg PO DAILY 90 days dulaglutide (Trulicity) 3 mg (0.5 mL) subcut QWEEK 28 days flash glucose sensor (FreeStyle Lida 14 Day Sensor kit) USE DIRECTED EVERY 2 WEEKS hydralazine 10 mg PO BID 30 days insulin glargine (Lantus Solostar U-100 Insulin) 26 units subcut DAILY insulin lispro (Humalog KwikPen (U-100) Insulin) 8 units (0.08 mL) subcut TID 30 days lisinopril 40 mg (2 x 20 mg) PO DAILY oxycodone 5 mg PO BID-TID PRN 28 days pen needle, diabetic (BD Ultra-Fine Odette Pen Needle) 1 ea subcut QID Tobacco use date assessed: 01/17/23 Dental Screening Dental Screen Date: 01/17/23 Did you have a dental visit in the last 12 months?: Yes Did you have a dental problem in the last 6 months where you did not have access to dental care?: No HPI DM, HLD, HTN HPI Details Patient is a 52-year-old male presents today to follow-up on his chronic conditions.? Patient of Dr. Garcia, last visit 04/2022.? Medical history significant for CKD stage IV, diabetes type 2 insulin dependent, hypertension, hyperlipidemia, obesity, anxiety, depression, and erectile dysfunction among others. Patient reports that he is compliant with his medications and denies side effects. Reports blood sugars ranging in 200s. Reports diabetic eye exam years ago, will refer. Did not see kidney specialist for CKD, will refer. Does not check his blood pressures at home, encouraged to monitor blood pressures at home periodically. Denies shortness of breath or chest pain. Reports erectile dysfunction for the past some time, reports that he was given Cialis in the past although insurance would not cover this, interested in trying Viagra. 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 Type 2 diabetes mellitus with hyperglycemia, with long-term current use of insulin Vitamin D deficiency Surgical History History of nasal surgery Family History Father Lung cancer Mother Hypertension Coronary artery disease CVD (cardiovascular disease) TIA (transient ischemic attack) Sister Diabetes Maternal Uncle Diabetes Other Mental health problem Social History Household Members: None Housing: Apartment Do you presently have visiting nurse or other home services: No Alcohol intake: current Alcohol intake frequency: holidays/special occasions only Patient Tobacco Use Status: Never used Tobacco e-Cigarette/Vaping Use: Never Used Second Hand Smoke Exposure: Yes service: No Current occupational status: unemployed Cognitive needs: No Hearing needs: No Vision needs: No Questionnaire PHQ-9 Over the last 2 weeks, how often have you been bothered by any of the following problems? 1. Little interest or pleasure in doing things: not at all 2. Feeling down, depressed, or hopeless: not at all 3. Trouble falling or staying asleep, or sleeping too much: not at all 4. Feeling tired or having little energy: not at all 5. Poor appetite or overeating: not at all 6. Feeling bad about yourself - or that you are a failure or have let yourself or your family down: not at all 7. Trouble concentrating on things, such as reading the newspaper or watching television: not at all 8. Moving or speaking so slowly that other people could have noticed. Or the opposite - being so fidgety or restless that you have been moving around a lot more than usual: not at all 9. Thoughts that you would be better off or of hurting yourself in some way: not at all Total score: 0 Depression Screening Interpretation: Negative 48730 - PHQ-9 Billing: Yes Source: Developed by Drs. Zay Babb, Genesis Aiken, Tony Garcia and colleagues, with an educational hpoenix from [employer]. Thrive Questionnaire Date Thrive assessed: 08/02/21 AUDIT C Alcohol Use Questionnaire (AUDIT-C) 1. How often do you have a drink containing alcohol?: Monthly or less 2. How many drinks containing alcohol do you have on a typical day when you are drinking?: 1 or 2 3. How often do you have six or more drinks on one occasion?: Never Total Score: 1 Score Reviewed/Action Taken: No ANAHI-7 AMB Questionnaire ANAHI-7 Date ANAHI - 7 assessed: 01/17/23 Feeling nervous, anxious, or on edge: 0 = Not at all Not being able to stop or control worryin = Not at all Worrying too much about different things: 0 = Not at all Trouble relaxin = Not at all Being so restless that it is hard to sit still: 0 = Not at all Becoming easily annoyed or irritable: 0 = Not at all Feeling afraid as if something awful might happen: 0 = Not at all Total ANAHI-7 score (0-4 normal; 5-9 mild; 10-14 moderate; 15-21 severe): 0 Source: Developed by Drs. Zay Babb, Genesis Aiken, Tony Garcia and colleagues, with an educational phoenix from [employer]. ANAHI-7 Assessment Billing ANAHI-7 Assessment Tool: ANAHI-7 Assessment 28956 Review of Systems Const Denies body aches, Denies chills, Denies fever(s) and Denies headache(s) Eyes Denies change in vision ENT Denies dizziness, Denies otalgia, Denies headache(s), Denies nasal discharge, Denies sinus pain and Denies sore throat Card Denies chest pain, Denies edema, Denies lightheadedness and Denies dyspnea Resp Denies chest congestion, Denies cough and Denies dyspnea GI Denies constipation, Denies diarrhea, Denies nausea and Denies vomiting Reports as per HPI, Denies difficulty urinating and Denies dysuria Musc Denies myalgias Skin/Breast Denies lesions and Denies rash Neuro Denies dizziness and Denies headache(s) Physical exam (Primary Care) Vital Signs: Last Vital Signs Pulse 93 01/17/23 14:28 BP 152/90 H 01/17/23 14:28 Pulse Ox 98 01/17/23 14:28 Oxygen Delivery Method Room Air 01/17/23 14:28 BMI result Body Mass Index 36.8 Tobacco/Smoking Status: Tobacco use Status Tobacco use date assessed 01/17/23 01/17/23 14:29 Patient Tobacco Use Status Never used Tobacco 01/17/23 14:29 e-Cigarette/Vaping Use Never Used 01/17/23 14:29 PHQ-9: PHQ-9 Score PHQ-9: Total score 0 01/17/23 14:39 Depression Screening Interpretation: Negative Thrive Assessment: Date of Thrive Assessment Date Thrive assessed 08/02/21 01/17/23 14:29 Const General: cooperative and no acute distress Orientation/consciousness: patient oriented x3 HENMT Head: Yes normocephalic and Yes atraumatic Face and sinus: Yes sinuses nontender Mouth: oropharynx normal and moist mucous membranes Throat: Yes posterior oropharynx normal Eyes General: appearance normal, both eyes and all related structures Neck Neck: Yes normal visual inspection, Yes full ROM and Yes no lymphadenopathy Resp Effort & Inspection: normal respiratory effort and able to speak in complete sentences Auscultation: clear to auscultation bilaterally, no crackles, no rales, no rhonchi and no wheezes Cardio Rate: regular rate Rhythm: regular rhythm Heart sounds: S1 normal heart sound present and S2 normal heart sound present GI Auscultation: normal bowel sounds Skin General skin exam: no rashes or lesions noted Neuro General: patient oriented x3 Gait exam (Neuro): Normal gait present Extrem General: Yes full ROM and No edema Results AMB Hemoglobin A1c AMB Hemoglobin A1c 7.8 % Last Edit by UGO Dan on 01/17/23 14:43 Assessment and Plan Assessment & Plan (1) Chronic kidney disease, stage 4 (severe): Code(s): N18.4 - Chronic kidney disease, stage 4 (severe) Plan: Creatinine 2.36, GFR 29 06/2022 Avoid nephrotoxic medications Nephrology referral (2) Type 2 diabetes mellitus with hyperglycemia, with long-term current use of insulin: Code(s): E11.65 - Type 2 diabetes mellitus with hyperglycemia; Z79.4 - 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 Plan: A1c 7.8 today, goal less than 7 Continue current treatment Low-carbohydrate diet (3) Essential hypertension: Code(s): I10 - Essential (primary) hypertension Plan: Goal BP equal or less than 140/90, blood pressure is elevated for the past some time including today Increase hydralazine to 10 mg t.i.d., continue amlodipine 10 mg daily and lisinopril 40 mg daily Low-sodium diet and weight loss Patient was encouraged to monitor his blood pressures at home Follow-up with nurse in 2 weeks for BP recheck (4) 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 LDL goal <70: Code(s): E78.5 - 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, unspecified Plan: Atorvastatin 80 mg daily Low-cholesterol diet (5) Obesity (BMI 30-39.9): Code(s): E66.9 - Obesity, unspecified Plan: Healthy food choices and exercise as tolerated (6) Type 2 diabetes mellitus with diabetic polyneuropathy: Code(s): E11.42 - Type 2 diabetes mellitus with diabetic polyneuropathy Plan: Patient is on oxycodone 5 mg b.i.d.-t.i.d. p.r.n. for severe pain - he reports taking this as prescribed. (7) Erectile dysfunction: Code(s): N52.9 - Male erectile dysfunction, unspecified Plan: Will check testosterone level Start Viagra 25 mg daily p.r.n. Plan Follow-up with PCP in 4 months or sooner as needed Patient is due for blood work - previous potassium was elevated Orders: Orders Comprehensive Loman. Panel Fast Today E11.22 - Type 2 diabetes mellitus with diabetic chronic kidney disease Lipid Panel Today E11.22 - Type 2 diabetes mellitus with diabetic chronic kidney disease Vitamin D 25-OH Total Today E11.22 - Type 2 diabetes mellitus with diabetic chronic kidney disease Testosterone, Total Today N52.9 - Male erectile dysfunction, unspecified AMB Hemoglobin A1c Today E11.42 - Type 2 diabetes mellitus with diabetic polyneuropathy Referrals Nephrology Referral N18.4 - Chronic kidney disease, stage 4 (severe) Ophthalmology Referral E11.65 - Type 2 diabetes mellitus with hyperglycemia, Z79.4 - 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4 Essential hypertension I10 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 LDL goal <70 E78.5 Obesity (BMI 30-39.9) E66.9 Type 2 diabetes mellitus with diabetic polyneuropathy E11.42 Erectile dysfunction N52.9 Additional Codes ANAHI-7 Assessment Billing - ANAHI-7 Assessment Tool: ANAHI-7 Assessment 01930 ([id number])
[2023-01-17 14:55] VITALS: BP 150/82
== END 2023-01-17 15:26 | disposition home or self-care (01) ==
PROVIDERS: PCP Internal Medicine; Visit Provider Nurse Practitioner Family
DX: I12.9 Hypertensive chronic kidney disease with stage 1 through stage 4 chronic kidney disease, or unspecified chronic kidney disease (principal); N18.4 Chronic kidney disease, stage 4 (severe); E11.65 Type 2 diabetes mellitus with hyperglycemia; Z79.4 Long term (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 of insulin; E78.5 Hyperlipidemia, unspecified; E66.9 Obesity, unspecified; E11.42 Type 2 diabetes mellitus with diabetic polyneuropathy; N52.9 Male erectile dysfunction, unspecified
CPT/HCPCS: 83036; 99214

== ENCOUNTER 2023-05-26 13:13 | Outpatient (AMB) | payer OTHER, SELFPAY ==
[2023-05-26 13:32] VITALS: BP 152/88; PULSE 94; TEMP 36.5; O2SAT 97
--- NOTE | 2023-05-26 13:32 | MHC.OFFWIV ---
Intake Vital Signs 05/26/23 13:32 Height 5 ft 7 in BP 152/88 H Blood Pressure Location Rt brachial Position Sitting Pulse 94 Pulse Source Pulse Oximeter Temp 97.7 F Temp Source Oral Pulse Oximetry (%) 97 Oxygen Delivery Method Room Air Intake Visit Reasons: EP sinus congestion for a week [id number] Intake Note: pt is here for c/o possible sinus congestion, cough, headache Patient Tobacco Use Status: Never used Tobacco Allergies No Known Allergies Allergy (Verified 05/26/23 13:33) Do you need a note to return to daycare/school/sports/work: Yes HPI EP sinus congestion for a week [id number] HPI Details 53 year old male patient presents today with sinus pressure/congestion, productive cough with yellow sputum, headache x1 week. Reports many coworkers were sick last week with similar symptoms. Denies any fever or chills. Has been taking Nyquil with some nighttime relief. Denies any shortness of breath, sore throat, ear pain, or GI symptoms. [facility] Medical History Right foot ulcer Anxiety History of foot ulcer Obesity (BMI 30-39.9) Depression Rotator cuff arthropathy of left shoulder Vitamin D deficiency Allergic rhinitis Anemia Pure hypercholesterolemia Benign essential hypertension Chronic kidney disease (CKD), stage III (moderate) detention (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 of insulin Diabetic polyneuropathy Type 2 diabetes mellitus with diabetic chronic kidney disease Erectile dysfunction Type 2 diabetes mellitus with hyperglycemia, with long-term current use of insulin Type 2 diabetes mellitus with diabetic polyneuropathy Type 2 diabetes mellitus with chronic kidney disease Essential hypertension 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 LDL goal <70 Surgical History History of nasal surgery Family History Father Lung cancer Mother Hypertension Coronary artery disease CVD (cardiovascular disease) TIA (transient ischemic attack) Sister Diabetes Maternal Uncle Diabetes Other Mental health problem Social History Household Members: None Housing: Apartment Do you presently have visiting nurse or other home services: No Alcohol intake: current Alcohol intake frequency: holidays/special occasions only Patient Tobacco Use Status: Never used Tobacco e-Cigarette/Vaping Use: Never Used Second Hand Smoke Exposure: Yes service: No Current occupational status: unemployed Cognitive needs: No Hearing needs: No Vision needs: No Review of Systems Const All systems reviewed & are unremarkable except as noted in HPI and below Physical Exam Vital Signs: Last Vital Signs Temp 97.7 F 05/26/23 13:32 Pulse 94 05/26/23 13:32 BP 152/88 H 05/26/23 13:32 Pulse Ox 97 05/26/23 13:32 Oxygen Delivery Method Room Air 05/26/23 13:32 Const General: cooperative, healthy appearing and no acute distress HEENT Head: Yes normal to inspection Ears: hearing grossly normal bilaterally General nose exam: Normal external nose present and Normal nasal mucous membranes and turbinates present Face and sinus: Yes sinus tenderness (maxillary) Mouth: Normal oral and palatal mucosa present and moist mucous membranes Throat: Yes posterior oropharynx normal Neck Neck: Yes no lymphadenopathy Resp Effort & Inspection: normal respiratory effort and able to speak in complete sentences Auscultation: clear to auscultation bilaterally Cardio Jugular venous distension: no JVD Palpation: normal PMI Rate: regular rate Rhythm: regular rhythm Skin General skin exam: no rashes or lesions noted Extrem General: Yes capillary refill normal and Yes no clubbing, cyanosis or edema Psych Appearance: grossly normal Mental Status: mental status grossly normal Speech and movement: Normal speech and movement present Assessment & Plan Assessment & Plan (1) Upper respiratory infection: Code(s): J06.9 - Acute upper respiratory infection, unspecified Qualifiers: URI type: unspecified URI Qualified Code(s): J06.9 - Acute upper respiratory infection, unspecified Plan: Resolving URI with acute sinusitis. Will start patient on azithromycin. Advised ongoing conservative measures for symptom management. Covid/Flu/RSV swab obtained. Work note provided. If patient does not improve with treatment or if new symptoms develop he can return to the clinic for further evaluation. He agrees to plan. Orders: Orders SARS-CoV2/FLU/RSV Today J06.9 - Acute upper respiratory infection, unspecified Medications: New azithromycin For 250 mg dose pack: take 500 mg today (day 1), then 250 mg for 4 days (days 2-5) PO 6 tabs 0RF J06.9 - Acute upper respiratory infection, unspecified Coding Level of Care Code Est Pt Level 3 (16975) Diagnoses Upper respiratory tract infection, unspecified type J06.9 URI type: unspecified URI
== END 2023-05-26 14:19 | disposition home or self-care (01) ==
PROVIDERS: PCP Internal Medicine; Visit Provider Nurse Practitioner Family
DX: J06.9 Acute upper respiratory infection, unspecified (principal)
CPT/HCPCS: 99213

== ENCOUNTER 2023-05-26 14:12 | Outpatient (REF) | payer OTHER, SELFPAY ==
[2023-05-26 17:11] LABS: Influenza A PCR NEGATIVE (Negative); Influenza B PCR NEGATIVE (Negative); Resp Syncy Virus RNA Qual PCR NEGATIVE (Negative); SARS COV2 PCR INHOUSE NEGATIVE (Negative)
== END 2023-05-26 14:13 | disposition home or self-care (01) ==
LOC: HO.LAB 14:12
PROVIDERS: Visit Provider Nurse Practitioner Family
DX: Z11.52 Encounter for screening for COVID-19 (principal); J06.9 Acute upper respiratory infection, unspecified
CPT/HCPCS: 0241U

== ENCOUNTER 2023-08-12 12:56 | Outpatient (AMB) | payer OTHER, SELFPAY ==
[2023-08-12 13:00] VITALS: BP 180/86; PULSE 84; TEMP 36.1; O2SAT 97; BMI 37.3
--- NOTE | 2023-08-12 13:00 | MHC.OFFWIV ---
Intake Vital Signs 08/12/23 13:00 Height 5 ft 7 in Weight 238 lb BMI 37.3 BP 180/86 H Blood Pressure Location Lt brachial Position Sitting Pulse 84 Pulse Source Pulse Oximeter Temp 97.0 F Temp Source Temporal Artery Scan Pulse Oximetry (%) 97 Oxygen Delivery Method Room Air Intake Visit Reasons: EST/cough and stuff nose ([phone]) Intake Note: pt is here today for cough and stuffy nose started last Patient Tobacco Use Status: Never used Tobacco Allergies No Known Allergies Allergy (Verified 08/12/23 13:02) Do you need a note to return to daycare/school/sports/work: Yes HPI HPI Comments History of Present Illness Details This is a 53-year-old male with a past medical history of hypertension and insulin-dependent diabetes presenting for evaluation of a cough with subjective fevers that he has had for the past 5 days. Patient denies having any chills, ear pain, sore throat, chest pain or shortness a breath and denies any episodes of hyperglycemia or hypoglycemia. Patient has not taken any medication for treatment of his symptoms. [facility] Medical History Right foot ulcer Anxiety History of foot ulcer Obesity (BMI 30-39.9) Depression Rotator cuff arthropathy of left shoulder Vitamin D deficiency Allergic rhinitis Anemia Pure hypercholesterolemia Benign essential hypertension Chronic kidney disease (CKD), stage III (moderate) long-term (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 of insulin Diabetic polyneuropathy Type 2 diabetes mellitus with diabetic chronic kidney disease Erectile dysfunction Type 2 diabetes mellitus with hyperglycemia, with long-term current use of insulin Type 2 diabetes mellitus with diabetic polyneuropathy Type 2 diabetes mellitus with chronic kidney disease Essential hypertension 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 LDL goal <70 Surgical History History of nasal surgery Family History Father Lung cancer Mother Hypertension Coronary artery disease CVD (cardiovascular disease) TIA (transient ischemic attack) Sister Diabetes Maternal Uncle Diabetes Other Mental health problem Social History Household Members: None Housing: Apartment Do you presently have visiting nurse or other home services: No Alcohol intake: current Alcohol intake frequency: holidays/special occasions only Patient Tobacco Use Status: Never used Tobacco e-Cigarette/Vaping Use: Never Used Second Hand Smoke Exposure: Yes service: No Current occupational status: unemployed Cognitive needs: No Hearing needs: No Vision needs: No Review of Systems Const All systems reviewed & are unremarkable except as noted in HPI and below Reports as per HPI, Denies chills, Reports fatigue and Reports fever(s) Eyes Reports no additional complaints ENT Reports no additional complaints Card Reports no additional complaints and Denies dyspnea Resp Reports cough, Denies dyspnea and Reports wheezing GI Reports no additional complaints Reports no additional complaints Endo Reports fatigue Aller/Immun Reports wheezing Physical Exam Vital Signs: Last Vital Signs Temp 97.0 F 08/12/23 13:00 Pulse 84 08/12/23 13:00 BP 180/86 H 08/12/23 13:00 Pulse Ox 97 08/12/23 13:00 Oxygen Delivery Method Room Air 08/12/23 13:00 BMI result Body Mass Index 37.3 Repeat BP 172/74. Patient states he took his Lisinopril this morning. Const General: cooperative, healthy appearing and comfortable; No no acute distress Nutritional Appearance: overweight Orientation/consciousness: patient oriented x3 Limitations: no limitations HEENT Head: Yes normal to inspection and Yes normocephalic Ears: hearing grossly normal bilaterally, external ears normal and EAC's normal General nose exam: Normal external nose present Face and sinus: Yes normal facial exam and Yes sinuses nontender Mouth: Normal oral and palatal mucosa present and moist mucous membranes Throat: Yes posterior oropharynx normal and No postnasal drainage Eyes General: appearance normal, both eyes and all related structures Neck Lymphatic: no lymphadenopathy noted Resp Effort & Inspection: normal respiratory effort, able to speak in complete sentences, no audible wheezes, no cough and no respiratory distress Auscultation: clear to auscultation bilaterally Cardio Rate: regular rate Rhythm: regular rhythm Neuro General: patient oriented x3 Psych Appearance: grossly normal Mental Status: mental status grossly normal Insight: Good insight present (Psych) Judgement: Good judgement present (Psych) Assessment & Plan Assessment & Plan (1) Cough: Comment: SARS panel ordered and pending. Code(s): R05.9 - Cough, unspecified Qualifiers: Cough type: acute Qualified Code(s): R05.1 - Acute cough Plan: Mucinex OTC as needed, increase clear fluids daily. Orders: Orders SARS-CoV2/FLU/RSV Today R05.9 - Cough, unspecified Coding Level of Care Code Est Pt Level 3 (71684) Diagnoses Acute cough R05.1 Cough type: acute Time Spent (min) 20
== END 2023-08-12 13:36 | disposition home or self-care (01) ==
PROVIDERS: PCP Internal Medicine; Visit Provider Physician Assistant
DX: R05.1 Acute cough (principal)
CPT/HCPCS: 99213

== ENCOUNTER 2023-08-12 17:00 | Outpatient (REF) | payer OTHER, SELFPAY ==
[2023-08-12 17:51] LABS: Influenza A PCR NEGATIVE (Negative); Influenza B PCR NEGATIVE (Negative); Resp Syncy Virus RNA Qual PCR NEGATIVE (Negative); SARS COV2 PCR INHOUSE NEGATIVE (Negative)
== END 2023-08-12 17:01 | disposition home or self-care (01) ==
LOC: HO.HMGCLNP 17:00
PROVIDERS: Visit Provider Physician Assistant
DX: R05.9 Cough, unspecified (principal)
CPT/HCPCS: 0241U

== ENCOUNTER 2023-08-25 15:28 | Outpatient (AMB) | payer OTHER, SELFPAY ==
[2023-08-25 15:50] VITALS: BP 170/72; O2SAT 100; BMI 35.5
--- NOTE | 2023-08-25 15:50 | A.OFFPC_ITS ---
Vital Signs 08/25/23 15:50 Height 5 ft 7 in Weight 227 lb BMI 35.5 BP 170/72 H Blood Pressure Location Lt brachial Position Sitting Pulse Source Pulse Oximeter Pulse Oximetry (%) 100 Oxygen Delivery Method Room Air Intake Visit Reasons: F/u Afternoon Nanny Required: No Industrial Maintenance Manager: Not Required per policy Accompanied by: Self / Same As Patient Allergies No Known Allergies Allergy (Verified 08/25/23 16:28) Medication List - Last Reconciled 08/25/23 by Michael Garcia MD amlodipine 10 mg PO DAILY atorvastatin 80 mg PO DAILY 90 days dulaglutide (Trulicity) 3 mg (0.5 mL) subcut QWEEK 28 days flash glucose sensor (FreeStyle Lida 14 Day Sensor kit) USE DIRECTED EVERY 2 WEEKS hydralazine 10 mg PO TID 30 days insulin glargine (Lantus Solostar U-100 Insulin) 26 units subcut DAILY insulin lispro (Humalog KwikPen (U-100) Insulin) 8 units (0.08 mL) subcut TID 30 days lisinopril 40 mg (2 x 20 mg) PO DAILY oxycodone 5 mg PO BID-TID PRN 28 days pen needle, diabetic (BD Ultra-Fine Odette Pen Needle) 1 ea subcut QID sildenafil (Viagra) 25 mg PO DAILY PRN Tobacco use date assessed: 08/25/23 Dental Screening Dental Screen Date: 08/25/23 Did you have a dental visit in the last 12 months?: Yes Did you have a dental problem in the last 6 months where you did not have access to dental care?: No Was dental information given to patient?: Patient has dentist HPI F/u HPI Details Patient comes in today for his follow up visit - was last seen by me in July 2021 States that he has been sick for the past 2 weeks Has had watery diarrhea as well as recurrent cough/congestion for the past couple of weeks although he states that his diarrhea has now slowed down to just one episode of loose bowel movement a day, and notes that his stools seem to be forming and are not as watery and loose as they were over the past 2 weeks Also relates (+) on and off fever and states that he currently still feels very weak overall States that he has tested himself for COVID a few times over the past 2 weeks and all of his tests have come back negative He denies any headaches or dizziness Denies any chest pains, no increased SOB but is still coughing and feels congested No nausea/vomiting, no abdominal pain but states that he has not had much of an appetite lately He has no follow up labs done recently Also needs his pain med Rx refilled today [facility] Medical History (Updated 09/04/23 @ 17:41 by Michael Garcia MD) Right foot ulcer Anxiety History of foot ulcer Obesity (BMI 30-39.9) Depression Rotator cuff arthropathy of left shoulder Vitamin D deficiency Allergic rhinitis Anemia Pure hypercholesterolemia Benign essential hypertension Diabetic polyneuropathy Type 2 diabetes mellitus with diabetic chronic kidney disease Erectile dysfunction Type 2 diabetes mellitus with hyperglycemia, with long-term current use of insulin Type 2 diabetes mellitus with diabetic polyneuropathy Type 2 diabetes mellitus with chronic kidney disease 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 LDL goal <70 Surgical History History of nasal surgery Family History Father Lung cancer Mother Hypertension Coronary artery disease CVD (cardiovascular disease) TIA (transient ischemic attack) Sister Diabetes Maternal Uncle Diabetes Other Mental health problem Social History Household Members: None Housing: Apartment Do you presently have visiting nurse or other home services: No Alcohol intake: current Alcohol intake frequency: holidays/special occasions only Patient Tobacco Use Status: Never used Tobacco e-Cigarette/Vaping Use: Never Used Second Hand Smoke Exposure: Yes service: No Current occupational status: unemployed Cognitive needs: No Hearing needs: No Vision needs: No Questionnaire PHQ-9 Over the last 2 weeks, how often have you been bothered by any of the following problems? 1. Little interest or pleasure in doing things: not at all 2. Feeling down, depressed, or hopeless: not at all 3. Trouble falling or staying asleep, or sleeping too much: not at all 4. Feeling tired or having little energy: not at all 5. Poor appetite or overeating: not at all 6. Feeling bad about yourself - or that you are a failure or have let yourself or your family down: not at all 7. Trouble concentrating on things, such as reading the newspaper or watching television: not at all 8. Moving or speaking so slowly that other people could have noticed. Or the opposite - being so fidgety or restless that you have been moving around a lot more than usual: not at all 9. Thoughts that you would be better off or of hurting yourself in some way: not at all Total score: 0 Depression Screening Interpretation: Negative Depression Screening Done: Yes 01769 - PHQ-9 Billing: Yes Source: Developed by Drs. Zay Babb, Genesis Aiken, Tony Garcia and colleagues, with an educational phoenix from [employer]. Thrive Questionnaire Date Thrive assessed: 08/25/23 I am a: Patient What is your living situation today?: I have a steady place to live Within the past 12 months, did the food you bought not last and you didn't have the money to get more?: Never true Within the past 12 months, did you worry whether your food would run out before you got money to buy more?: Never true Do you have trouble paying for medicines?: No Do you have trouble getting transportation to medical appointments?: No Do you have trouble paying your heating and electricity bill?: No Do you have trouble taking care of your child, family member or friend?: No Do you have trouble with day-to-day activities such as bathing, preparing meals, shopping, managing finances, etc.?: No Are you currently unemployed and looking for a job?: No Are you interested in more education?: No Please select the resources that you would like help with: None Currently or been in a relationship where the following occur: no concerns reported THRIVE Score: 0 AUDIT C Alcohol Use Questionnaire (AUDIT-C) 1. How often do you have a drink containing alcohol?: Monthly or less 2. How many drinks containing alcohol do you have on a typical day when you are drinking?: 1 or 2 3. How often do you have six or more drinks on one occasion?: Never Total Score: 1 Score Reviewed/Action Taken: Yes ANAHI-7 AMB Questionnaire ANAHI-7 Date ANAHI - 7 assessed: 08/25/23 Feeling nervous, anxious, or on edge: 0 = Not at all Not being able to stop or control worryin = Not at all Worrying too much about different things: 0 = Not at all Trouble relaxin = Not at all Being so restless that it is hard to sit still: 0 = Not at all Becoming easily annoyed or irritable: 0 = Not at all Feeling afraid as if something awful might happen: 0 = Not at all Total ANAHI-7 score (0-4 normal; 5-9 mild; 10-14 moderate; 15-21 severe): 0 Source: Developed by Drs. Zay Babb, Genesis Aiken, Tony Garcia and colleagues, with an educational phoenix from [employer]. Review of Systems Const Denies chills, Reports fatigue, Denies fever(s), Denies headache(s), Reports poor appetite and Reports weakness ENT Denies dysphagia, Denies dizziness, Denies otalgia, Denies headache(s), Reports nasal congestion, Denies neck pain, Denies odynophagia and Denies sore throat Card Denies chest pain, Denies rapid heart rate, Denies palpitations and Denies dyspnea Resp Reports chest congestion, Reports cough (on and off; coughs up whitish to yellowish phlegm at times), Denies pain with cough, Denies dyspnea and Denies wheezing GI Denies abdominal pain, Denies constipation, Denies dysphagia, Reports diarrhea, Denies nausea, Denies odynophagia and Denies vomiting Denies difficulty urinating, Denies nocturia and Denies urinary frequency Musc Denies back pain, Denies arthralgias and Denies neck pain Skin/Breast Denies rash Neuro Details: (+) chronic pain over both lower extremities, especially in both feet, due to neuropathy Reports burning sensations (occasionally, in both feet), Denies dizziness, Denies headache(s) and Reports weakness Endo Reports fatigue and Denies palpitations Aller/Immun Denies wheezing Physical exam (Primary Care) Vital Signs: Last Vital Signs BP 170/72 H 08/25/23 15:50 Pulse Ox 100 08/25/23 15:50 Oxygen Delivery Method Room Air 08/25/23 15:50 BMI result Body Mass Index 35.5 Tobacco/Smoking Status: Tobacco use Status Tobacco use date assessed 08/25/23 08/25/23 15:51 Patient Tobacco Use Status Never used Tobacco 08/25/23 15:51 e-Cigarette/Vaping Use Never Used 08/25/23 15:51 PHQ-9: PHQ-9 Score PHQ-9: Total score 0 08/25/23 16:29 Depression Screening Interpretation: Negative Thrive Assessment: Date of Thrive Assessment Date Thrive assessed 08/25/23 08/25/23 15:51 Currently or been in a relationship where the following occur: no concerns reported Const General: no acute distress and alert HENMT Ears: TM's normal bilaterally and EAC's normal Throat: Yes posterior oropharynx normal and Yes tonsils normal Neck Neck: Yes no lymphadenopathy and Yes supple Thyroid: Thyroid normal Resp Auscultation: no rales, rhonchi (scattered) throughout and no wheezes Cardio Rate: regular rate Rhythm: regular rhythm Heart sounds: no murmurs GI Palpation (GI): Soft to palpation and nontender Auscultation: normal bowel sounds General: Yes no CVA tenderness Back/Spine/Pelvis Back: no CVA tenderness Thoracic/Lumbar Spine: No lumbar spinal tenderness Skin Rashes: no rashes Extrem General: Yes no clubbing, cyanosis or edema Assessment and Plan Assessment & Plan (1) Respiratory tract infection: Code(s): J98.8 - Other specified respiratory disorders Plan: Will send patient for chest x-rays ROZ for further evaluation (2) Diarrhea: Code(s): R19.7 - Diarrhea, unspecified Qualifiers: Diarrhea type: unspecified type Qualified Code(s): R19.7 - Diarrhea, unspecified Plan: Have advised patient that with his recent diarrhea/loose stools and his preexisting renal dysfunction, I am concerned as to how long his symptoms have lasted and whether they have had any adverse effects on his renal function, so I have advised him to try to get his follow up labs ordered today done ROZ Have advised him for now to try to increase his oral fluids and to stay hydrated (3) Chronic kidney disease, stage 4 (severe): Code(s): N18.4 - Chronic kidney disease, stage 4 (severe) Plan: Patient was in stage 4 CKD when his GFR and renal function were most recently checked in early 2022 Have advised him to try to get his labs rechecked ROZ so we can assess his current renal function (4) Type 2 diabetes mellitus with chronic kidney disease: Code(s): E11.22 - Type 2 diabetes mellitus with diabetic chronic kidney disease Qualifiers: 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 Chronic kidney disease stage: stage 3 (moderate) Chronic kidney disease stage 3 subtype: stage 3b (GFR 30-44) Qualified Code(s): E11.22 - Type 2 diabetes mellitus with diabetic chronic kidney disease; N18.32 - Chronic kidney disease, stage 3b; Z79.4 - USP (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 of insulin Plan: His HgbA1c was at 7.8% when it was last checked in January 2023 - goal is at least <7.0% Will have patient get his labs done ROZ to recheck his HgbA1c as well Reinforced diabetic diett Continue Trulicity 3 mg once a week, Lantus Solostar 26 units once a day, and Humalog KwikPen 8 units TID with meals, 6 units with smaller meals and to adjust by 2 units accordingly as instructed Follow-up with endocrinology as scheduled (5) Benign essential hypertension: Code(s): I10 - Essential (primary) hypertension Plan: Reinforced low-sodium diet - goal is systolic BP of at least 120 to 130 mm Continue Lisinopril 40 mg QD, Amlodipine 10 mg QD and Hydralazine 10 mg TID although patient is advised that his blood pressure today is very high and he should get his labs done ROZ for further assessment (6) Pure hypercholesterolemia: Code(s): E78.00 - Pure hypercholesterolemia, unspecified Plan: Reinforced low cholesterol diet Continue Atorvastatin 80 mg QD Will have patient recheck his labs and fasting lipids ROZ for follow up (7) Diabetic polyneuropathy: Code(s): E11.42 - Type 2 diabetes mellitus with diabetic polyneuropathy Qualifiers: Diabetes mellitus type: type 2 Qualified Code(s): E11.42 - Type 2 diabetes mellitus with diabetic polyneuropathy Plan: Continue Oxycodone 5 mg 2 to 3 times a day ONLY as needed for severe pain (Rx refilled) (8) Anemia: Code(s): D64.9 - Anemia, unspecified Qualifiers: Anemia type: unspecified type Qualified Code(s): D64.9 - Anemia, unspecified Plan: Most likely anemia of chronic disease Will recheck his CBC ROZ; will also continue to monitor his CBC regularly (9) Allergic rhinitis: Code(s): J30.9 - Allergic rhinitis, unspecified Qualifiers: Allergic rhinitis trigger: unspecified Allergic rhinitis seasonality: unspecified Qualified Code(s): J30.9 - Allergic rhinitis, unspecified Plan: Continue Fluticasone 50 mg nasal spray 2 sprays to each nostril once a day as needed (10) Vitamin D deficiency: Code(s): E55.9 - Vitamin D deficiency, unspecified Plan: Continue Vitamin D3 1000 units daily (11) Anxiety: Code(s): F41.9 - Anxiety disorder, unspecified Plan: Follow up with psychiatry as scheduled (12) Depression: Code(s): F32.9 - Major depressive disorder, single episode, unspecified Qualifiers: Depression Type: unspecified Qualified Code(s): F32.9 - Major depressive disorder, single episode, unspecified Plan: He was on Citalopram 20 mg QD in the past but appears to have stopped taking this on his own over a year ago Follow up with psychiatry as scheduled (13) Obesity (BMI 30-39.9): Code(s): E66.9 - Obesity, unspecified Plan: Reinforced diet/exercise as tolerated/lose weight Plan Follow up in 3 months Orders: Orders Comprehensive Met. Panel 08/27/23 E87.5 - Hyperkalemia, N18.4 - Chronic kidney disease, stage 4 (severe), R53.83 - Other fatigue Vitamin D 25-OH Total 08/27/23 E55.9 - Vitamin D deficiency, unspecified, E87.5 - Hyperkalemia, N18.4 - Chronic kidney disease, stage 4 (severe), R53.83 - Other fatigue Vitamin B12 and Folate 08/27/23 E53.8 - Deficiency of other specified B group vitamins, E87.5 - Hyperkalemia, N18.4 - Chronic kidney disease, stage 4 (severe), R53.83 - Other fatigue Erythrocyte Sedimentation Rate 08/27/23 E87.5 - Hyperkalemia, N18.4 - Chronic kidney disease, stage 4 (severe), R53.83 - Other fatigue Complete Blood Count Auto Diff 08/27/23 D64.9 - Anemia, unspecified, E87.5 - Hyperkalemia, N18.4 - Chronic kidney disease, stage 4 (severe), R53.83 - Other fatigue TSH reflex Free T4 08/27/23 E78.00 - Pure hypercholesterolemia, unspecified, E87.5 - Hyperkalemia, N18.4 - Chronic kidney disease, stage 4 (severe), R53.83 - Other fatigue UA CC w/rflx Micro + Cult 08/27/23 R30.0 - Dysuria, E87.5 - Hyperkalemia, N18.4 - Chronic kidney disease, stage 4 (severe), R53.83 - Other fatigue Phosphorus 08/27/23 N18.30 - Chronic kidney disease, stage 3 unspecified, E87.5 - Hyperkalemia, N18.4 - Chronic kidney disease, stage 4 (severe), R53.83 - Other fatigue Hemoglobin A1c 08/27/23 E11.9 - Type 2 diabetes mellitus without complications, E87.5 - Hyperkalemia, N18.4 - Chronic kidney disease, stage 4 (severe), R53.83 - Other fatigue C Reactive Protein 08/27/23 E87.5 - Hyperkalemia, N18.4 - Chronic kidney disease, stage 4 (severe), R53.83 - Other fatigue XR chest 2V 08/27/23 J98.8 - Other specified respiratory disorders Medications: Refilled oxycodone 5 mg PO BID-TID PRN 84 tabs 0RF severe pain 28 days Coding Level of Care Code Est Pt Level 4 (03117) Diagnoses Respiratory tract infection J98.8 Diarrhea, unspecified type R19.7 Diarrhea type: unspecified type Chronic kidney disease, stage 4 (severe) N18.4 Type 2 diabetes mellitus with stage 3b chronic kidney disease, with long-term current use of insulin E11.22; N18.32; Z79.4 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 Chronic kidney disease stage: stage 3 (moderate) Chronic kidney disease stage 3 subtype: stage 3b (GFR 30-44) Benign essential hypertension I10 Pure hypercholesterolemia E78.00 Diabetic polyneuropathy associated with type 2 diabetes mellitus E11.42 Diabetes mellitus type: type 2 Anemia, unspecified type D64.9 Anemia type: unspecified type Allergic rhinitis, unspecified seasonality, unspecified trigger J30.9 Allergic rhinitis trigger: unspecified Allergic rhinitis seasonality: unspecified Vitamin D deficiency E55.9 Anxiety F41.9 Depression, unspecified depression type F32.9 Depression Type: unspecified Obesity (BMI 30-39.9) E66.9
== END 2023-08-25 16:42 | disposition home or self-care (01) ==
PROVIDERS: PCP Internal Medicine; Visit Provider Internal Medicine
DX: E11.22 Type 2 diabetes mellitus with diabetic chronic kidney disease (principal); N18.4 Chronic kidney disease, stage 4 (severe); N18.32 Chronic kidney disease, stage 3b; Z79.4 Long term (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 of insulin; E11.42 Type 2 diabetes mellitus with diabetic polyneuropathy; J98.8 Other specified respiratory disorders; R19.7 Diarrhea, unspecified; I12.9 Hypertensive chronic kidney disease with stage 1 through stage 4 chronic kidney disease, or unspecified chronic kidney disease; E78.00 Pure hypercholesterolemia, unspecified; D64.9 Anemia, unspecified; J30.9 Allergic rhinitis, unspecified; E55.9 Vitamin D deficiency, unspecified
CPT/HCPCS: 99214

== ENCOUNTER 2023-08-27 07:31 | Outpatient (REF) | payer OTHER, SELFPAY ==
--- NOTE | ~2023-08-27 | XR_ITS ---
EXAMINATION: XR CHEST CLINICAL INFORMATION: Other specified respiratory disorders COMPARISON: Chest 03/28/2022 TECHNIQUE: 2 views of the chest were obtained. FINDINGS: No significant abnormality is noted involving the heart, lungs, mediastinum, bony thorax or soft tissues. XR/XR chest 2V IMPRESSION: Unremarkable examination.
[2023-08-27 07:45] LABS: MANUAL DIFF FLAG NO
[2023-08-27 07:56] LABS: Basophils Absolute Auto 0.1 X10*3/uL (0.0-0.2); Basophils Percent Auto 0.7 % (0-2); Eosinophils Absolute Auto 0.3 X10*3/uL (0.0-0.4); Eosinophils Percent Auto 3.1 % (0-4); Hematocrit 31.5 % (42.0-52.0); Hemoglobin 10.4 g/dl (14.0-18.0); Imm Gran Abs Auto 0.05 X10*3/uL (0.00-0.03); Imm Gran Pct Auto 0.6 % (0.0-0.4); Mean Corpuscular Hemoglobin 29.8 pg (27.0-33.0); Mean Corpuscular Volume 90.3 fL (80.0-98.0); Mean Platelet Volume 10.2 fL (9.4-12.4); Monocytes Absolute Auto 0.6 X10*3/uL (0.1-1.2); Monocytes Percent Auto 7.2 % (2-11); Neutrophils Absolute Auto 5.7 x10*3/uL (2.0-8.3); Neutrophils Percent Auto 65.4 % (45-73); Platelet Count 280 X10*3/uL (160-400); Red Blood Count 3.49 X10*6/uL (4.60-5.80); Red Cell Distribution Width 13.1 % (11.0-16.0); White Blood Count 8.7 X10*3/uL (4.8-10.8)
[2023-08-27 08:02] LABS: Estimated Average Glucose 171 mg/dL; Hemoglobin A1c % 7.6 % (<6.0)
[2023-08-27 08:32] LABS: Alanine Aminotransferase 15 U/L (0-40); Albumin Level 3.7 g/dL (3.5-5.0); Alkaline Phosphatase 84 U/L (39-117); Anion Gap 16 (12-20); Aspartate Amino Transferase 13 U/L (5-37); Bilirubin Total 0.4 mg/dL (0.0-1.0); Blood Urea Nitrogen 42 mg/dL (9-16); C Reactive Protein 0.44 mg/dL (< or = 0.50); Calcium 9.2 mg/dL (8.4-10.2); Carbon Dioxide 20 mmol/L (22-29); Chloride 114 mmol/L (96-108); Estimated Glomerular Filt Rate 12; Glucose Random 208 mg/dL (60-115); Potassium 4.8 mmol/L (3.3-5.1); Sodium 145 mmol/L (135-145); Total Protein 6.7 g/dL (6.5-8.0)
[2023-08-27 08:42] LABS: TSH reflex Free T4 2.34 uIU/mL (0.32-4.0); Vitamin D 25-OH Total 11.2 ng/mL (>30)
[2023-08-27 08:44] LABS: Erythrocyte Sedimentation Rate 33 MM/HR (0-15)
[2023-08-27 08:50] LABS: Folate 8.1 ng/mL (> or = 4.0); Vitamin B12 541 pg/mL (200-900)
[2023-08-27 09:43] LABS: Appearance Urine Clear; Color Urine Yellow; Glucose Urine UA 250 mg/dL (Negative); Leukocyte Esterase Urine Trace (Negative); Nitrite Urine Negative (Negative); PH 5.5 (5.0-9.0); Specific Gravity - Urine 1.015 (1.005-1.025); UMIC TRIGGER UACC YES; Urine Blood Trace (Negative); Urine Ketones Negative (Negative); Urine Protein 300 (3+) mg/dL (Neg-Trace)
[2023-08-27 10:12] LABS: Bacteria Urine None Seen (None Seen); RBC Urine 0-2 /HPF (0-2); UACC Culture Trigger YES
== END 2023-08-27 07:32 | disposition home or self-care (01) ==
LOC: HO.XRAY 07:31
PROVIDERS: PCP Internal Medicine; Visit Provider Internal Medicine
DX: E87.5 Hyperkalemia (principal); R53.83 Other fatigue; E55.9 Vitamin D deficiency, unspecified; E53.8 Deficiency of other specified B group vitamins; D64.9 Anemia, unspecified; E78.00 Pure hypercholesterolemia, unspecified; J98.8 Other specified respiratory disorders; R30.0 Dysuria; E11.22 Type 2 diabetes mellitus with diabetic chronic kidney disease; N18.4 Chronic kidney disease, stage 4 (severe)
CPT/HCPCS: 36415; 71046; 80053; 81001; 82306; 82607; 82746; 83036; 84100; 84443; 85025; 85652; 86140; 87086

== ENCOUNTER 2023-09-12 10:55 | Outpatient (AMB) | payer OTHER, SELFPAY ==
[2023-09-12 10:59] VITALS: BP 158/68; PULSE 90; O2SAT 99; BMI 36.2
--- NOTE | 2023-09-12 10:59 | HO.NEPHOV ---
HPI HPI Comments History of Present Illness Details 53-year-old man with a history of diabetes mellitus since the age of 24 has been referred for evaluation of chronic kidney disease. Howard had a serum creatinine of 5.0 with a EGFR of 12 mL/minute on 08/27/2023. In 2022 creatinine was 2.6 with a EGFR of 29 mL/minute. It appears that he has chronic kidney disease with a baseline of around 2.6 mg/dL. In 2020 he was hospitalized with Gram-positive bacteremia and he had acute kidney injury at the time. There is a history of noncompliance with medications and treatment. Overall diabetes mellitus has been suboptimally controlled with a hemoglobin A1c as high as 13%. Recent A1c is around 7.6%. He has mild diabetic retinopathy. He has nephrotic range proteinuria as well. Blood pressure has been difficult to control he has been on amlodipine 10 mg hydralazine 10 mg 3 times a day and lisinopril 20 mg once a day. Over the last few years he self medicated and increase the dose to 40 mg a day. There is episode of hyperkalemia at 6.1 back in June 2022. However the recent potassium was 4.8 mg/dL. As for the diet he eats a regular diet including high salt diet. He does not exercise regularly. No history of smoking or alcohol abuse although he socially drinks 1 or 2 drinks every couple of weeks. He tells me that his girlfriend has noticed that he has been snoring. In the past he has been referred for sleep evaluation which she did not follow through. [facility] Medical History Right foot ulcer Anxiety History of foot ulcer Obesity (BMI 30-39.9) Depression Rotator cuff arthropathy of left shoulder Vitamin D deficiency Allergic rhinitis Anemia Pure hypercholesterolemia Benign essential hypertension Diabetic polyneuropathy Type 2 diabetes mellitus with diabetic chronic kidney disease Erectile dysfunction Type 2 diabetes mellitus with hyperglycemia, with long-term current use of insulin Type 2 diabetes mellitus with diabetic polyneuropathy Type 2 diabetes mellitus with chronic kidney disease 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 LDL goal <70 Surgical History History of nasal surgery Family History Father Lung cancer Mother Hypertension Coronary artery disease CVD (cardiovascular disease) TIA (transient ischemic attack) Sister Diabetes Maternal Uncle Diabetes Other Mental health problem Social History Household Members: None Housing: Apartment Do you presently have visiting nurse or other home services: No Alcohol intake: current Alcohol intake frequency: holidays/special occasions only Patient Tobacco Use Status: Never used Tobacco e-Cigarette/Vaping Use: Never Used Second Hand Smoke Exposure: Yes service: No Current occupational status: unemployed Cognitive needs: No Hearing needs: No Vision needs: No Vital Signs 09/12/23 10:59 Height 5 ft 7 in Weight 231 lb BMI 36.2 BP 158/68 H Blood Pressure Location Rt brachial Position Sitting Pulse 90 Pulse Source Pulse Oximeter Pulse Oximetry (%) 99 Oxygen Delivery Method Room Air Physical Exam Vital Signs: Last Vital Signs Pulse 90 09/12/23 10:59 BP 158/68 H 09/12/23 10:59 Pulse Ox 99 09/12/23 10:59 Oxygen Delivery Method Room Air 09/12/23 10:59 BMI result Body Mass Index 36.2 Const General: comfortable Nutritional Appearance: well nourished Orientation/consciousness: patient oriented x3 HEENT Head: No normal to inspection Mouth: moist mucous membranes Neck Neck: Yes supple and Yes no JVD Resp Auscultation: clear to auscultation bilaterally, no rales and rub present Cardio Jugular venous distension: no JVD Palpation: no palpable S3 and no palpable S4 Heart sounds: no rubs GI Palpation (GI): Soft to palpation and nontender Percussion: No Fluid wave present General: Yes no CVA tenderness Back/Spine/Pelvis Back: no CVA tenderness Skin General skin exam: no rashes or lesions noted Neuro General: patient oriented x3 Extrem General: No clubbing Right upper extremity: edema Assessment & Plan Assessment & Plan (1) Chronic kidney disease, stage V: Comment: Most likely due to diabetic nephropathy. He has nephrotic range proteinuria. In the past basic serology was unremarkable. Code(s): N18.5 - Chronic kidney disease, stage 5 Plan: Goal is to slow the progression of renal disease. Concur with LISSY inhibitors. Optimize blood pressure Optimize blood sugar control. Continue to avoid nephrotoxic agents including NSAIDs. It is unclear if he has a component of NATALIA. Further clinical course will determine this. Initiated a basic workup for CKD. We will screen for secondary hyperparathyroidism Discussed the possible need for renal replacement therapy in the near future if there is no improvement in renal function. (2) Essential hypertension: Code(s): I10 - Essential (primary) hypertension Plan: BP suboptimal. Increase hydralazine to 25 mg PO TID. Titrate dose of hydralazine as tolerated to optimize blood pressure. Goal is to maintain blood pressure less than 130 mm of mercury systolic. Edema is due use to I dose of amlodipine. Nephrotic syndrome would be in the differential. 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 Encouraged to increase physical activity as well. Defer management to PCP (4) Anemia due to chronic kidney disease: Comment: Most likely due to erythropoietin deficiency Code(s): N18.9 - Chronic kidney disease, unspecified; D63.1 - Anemia in chronic kidney disease Plan: Check iron TIBC ferritin B12 and folate. If hemoglobin drops further I will initiate Retacrit Plan Need to rule out obstructive sleep apnea. He may require sleep evaluation I have discussed this with him. Orders: Orders Protein Electrophoresis, Serum 2 Weeks N18.5 - Chronic kidney disease, stage 5 Comprehensive Met. Panel 2 Weeks N18.5 - Chronic kidney disease, stage 5, N18.9 - Chronic kidney disease, unspecified Complete Blood Count Auto Diff 2 Weeks N18.30 - Chronic kidney disease, stage 3 unspecified, N18.5 - Chronic kidney disease, stage 5 IRON PROFILE 2 Weeks N18.5 - Chronic kidney disease, stage 5 Uric Acid 2 Weeks N18.5 - Chronic kidney disease, stage 5 Parathyroid Hormone Intact 2 Weeks N18.5 - Chronic kidney disease, stage 5 Phosphorus 2 Weeks N18.5 - Chronic kidney disease, stage 5 Vitamin B12 and Folate 2 Weeks N18.5 - Chronic kidney disease, stage 5 Medications: Changed From hydralazine 10 mg PO TID 30 days 90 tabs 2RF I10 - Essential (primary) hypertension To hydralazine 25 mg PO TID 30 days 90 tabs 2RF I10 - Essential (primary) hypertension Coding Level of Care Code New Pt Level 5 (32901) Diagnoses Chronic kidney disease, stage V N18.5 Essential hypertension I10 Type 2 diabetes mellitus with stage 3b chronic kidney disease, with long-term current use of insulin E11.22; N18.32; Z79.4 Chronic kidney disease stage: stage 3 (moderate) Chronic kidney disease stage 3 subtype: stage 3b (GFR 30-44) Diabetes mellitus termite exterminator helper insulin use: with termite exterminator helper use Anemia due to chronic kidney disease N18.9; D63.1 Results Reviewed Nephrology Results: Hgb 10.4 g/dl (14.0-18.0) L 08/27/23 WBC 8.7 X10*3/uL (4.8-10.8) 08/27/23 Plt Count 280 X10*3/uL (160-400) 08/27/23 Sodium 145 mmol/L (135-145) 08/27/23 Potassium 4.8 mmol/L (3.3-5.1) 08/27/23 Chloride 114 mmol/L (96-108) H 08/27/23 Carbon Dioxide 20 mmol/L (22-29) L 08/27/23 BUN 42 mg/dL (9-16) H 08/27/23 Creatinine 5.03 mg/dL (0.5-1.4) H* 08/27/23 Calcium 9.2 mg/dL (8.4-10.2) 08/27/23 Phosphorus 4.0 mg/dL (2.7-4.5) 08/27/23 Urine Protein 300 (3+) mg/dL (Neg-Trace) H 08/27/23
== END 2023-09-12 11:40 | disposition home or self-care (01) ==
PROVIDERS: PCP Internal Medicine; Referring Provider Internal Medicine; Visit Provider Internal Medicine Hypertension Specialist
DX: I12.0 Hypertensive chronic kidney disease with stage 5 chronic kidney disease or end stage renal disease (principal); E11.22 Type 2 diabetes mellitus with diabetic chronic kidney disease; N18.5 Chronic kidney disease, stage 5; Z79.4 Long term (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 of insulin; D63.1 Anemia in chronic kidney disease
CPT/HCPCS: 99205

== ENCOUNTER → 2023-09-12 10:55 | Outpatient (BNVA) | payer OTHER, SELFPAY | PROVIDERS: PCP Internal Medicine; Referring Provider Internal Medicine; Visit Provider Internal Medicine Hypertension Specialist | DX: I12.0 Hypertensive chronic kidney disease with stage 5 chronic kidney disease or end stage renal disease (principal); E11.22 Type 2 diabetes mellitus with diabetic chronic kidney disease; N18.5 Chronic kidney disease, stage 5; D63.1 Anemia in chronic kidney disease; Z79.4 Long term (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 of insulin | CPT/HCPCS: 99202 ==

== ENCOUNTER 2023-09-29 10:13 | Outpatient (REF) | payer OTHER, SELFPAY ==
[2023-09-29 10:28] LABS: MANUAL DIFF FLAG NO
[2023-09-29 10:57] LABS: Basophils Percent Auto 0.4 % (0-2); Eosinophils Absolute Auto 0.2 X10*3/uL (0.0-0.4); Eosinophils Percent Auto 2.2 % (0-4); Hematocrit 30.1 % (42.0-52.0); Hemoglobin 9.5 g/dl (14.0-18.0); Imm Gran Abs Auto 0.03 X10*3/uL (0.00-0.03); Imm Gran Pct Auto 0.4 % (0.0-0.4); Lymphocytes Absolute Auto 1.3 X10*3/uL (1.2-4.9); Lymphocytes Percent Auto 16.9 % (20-40); Mean Corpuscular HGB Conc 31.6 g/dl (31.0-36.0); Mean Corpuscular Hemoglobin 29.7 pg (27.0-33.0); Mean Corpuscular Volume 94.1 fL (80.0-98.0); Mean Platelet Volume 10.9 fL (9.4-12.4); Monocytes Absolute Auto 0.6 X10*3/uL (0.1-1.2); Monocytes Percent Auto 7.2 % (2-11); Neutrophils Absolute Auto 5.6 x10*3/uL (2.0-8.3); Neutrophils Percent Auto 72.9 % (45-73); Platelet Count 190 X10*3/uL (160-400); Red Cell Distribution Width 13.3 % (11.0-16.0); White Blood Count 7.7 X10*3/uL (4.8-10.8)
[2023-09-29 11:47] LABS: Parathyroid Hormone Intact 228.9 pg/mL (8.7-77.1)
[2023-09-29 12:07] LABS: Alanine Aminotransferase 21 U/L (0-40); Albumin Level 3.7 g/dL (3.5-5.0); Alkaline Phosphatase 99 U/L (39-117); Anion Gap 14 (12-20); Aspartate Amino Transferase 16 U/L (5-37); Bilirubin Total 0.5 mg/dL (0.0-1.0); Blood Urea Nitrogen 43 mg/dL (9-16); Calcium 8.8 mg/dL (8.4-10.2); Carbon Dioxide 17 mmol/L (22-29); Chloride 118 mmol/L (96-108); Glucose Random 289 mg/dL (60-115); Iron 67 mcg/dL (45-160); Percent Iron Saturation 26 % (15-50); Phosphorus 3.6 mg/dL (2.7-4.5); Potassium 5.4 mmol/L (3.3-5.1); Sodium 144 mmol/L (135-145); Total Iron Binding Capacity 261 mcg/dL (228-428); Total Protein 6.4 g/dL (6.5-8.0); Unsaturated Iron Binding 194 ug/dL; Uric Acid 6.7 mg/dL (3.4-7.0)
[2023-09-29 12:15] LABS: Folate 7.9 ng/mL (> or = 4.0); Vitamin B12 495 pg/mL (200-900)
[2023-09-29 12:25] LABS: Estimated Glomerular Filt Rate 12
[2023-09-30 21:18] LABS: Prot Elec - Albumin 3.5 g/dL (3.8-4.8); Prot Elec - Alpha1 0.4 g/dL (0.2-0.3); Prot Elec - Alpha2 0.8 g/dL (0.5-0.9); Prot Elec - Beta 1 0.4 g/dL (0.4-0.6); Prot Elec - Beta 2 0.4 g/dL (0.2-0.5); Prot Elec - Gamma 0.6 g/dL (0.8-1.7); Prot Elec - Total Protein 6.1 g/dL (6.1-8.1)
== END 2023-09-29 10:14 | disposition home or self-care (01) ==
LOC: HO.LAB 10:13
PROVIDERS: PCP Internal Medicine; Visit Provider Internal Medicine Hypertension Specialist
DX: N18.5 Chronic kidney disease, stage 5 (principal)
CPT/HCPCS: 36415; 80053; 82607; 82746; 83540; 83970; 84100; 84165; 84550; 85025

== ENCOUNTER 2023-10-02 09:59 | Outpatient (AMB) | payer OTHER, SELFPAY ==
[2023-10-02 10:01] VITALS: BP 120/50; PULSE 77; O2SAT 98; BMI 37.1
--- NOTE | 2023-10-02 10:01 | HO.NEPHOV_ITS ---
HPI HPI Comments History of Present Illness Details 53-year-old man with a history of diabet es mellitus since the age of 24 has been referred for evaluation of chronic kidney disease. Howard had a serum creatinine of 5.0 with a EGFR of 12 mL/minute on 08/27/2023. In 2022 creatinine was 2.6 with a EGFR of 29 mL/minute. It appears that he has chronic kidney disease with a baseline of around 2.6 mg/dL. In 2020 he was hospitalized with Gram-positive bacteremia and he had acute kidney injury at the time. There is a history of noncompliance with medications and treatment. Overall diabetes mellitus has been suboptimally controlled with a hemoglobin A1c as high as 13%. Recent A1c is around 7.6%. He has mild diabetic retinopathy. He has nephrotic range proteinuria as well. Blood pressure has been difficult to control he has been on amlodipine 10 mg hydralazine 10 mg 3 times a day and lisinopril 20 mg once a day. Over the last few years he self medicated and increase the dose to 40 mg a day. There is episode of hyperkalemia at 6.1 back in June 2022. However the recent potassium was 4.8 mg/dL. As for the diet he eats a regular diet including high salt diet. He does not exercise regularly. No history of smoking or alcohol abuse although he socially drinks 1 or 2 drinks every couple of weeks. He tells me that his girlfriend has noticed that he has been snoring. In the past he has been referred for sleep evaluation which she did not follow through. [facility] Medical History (Updated 10/02/23 @ 11:31 by Stone Ulloa MD) Metabolic acidosis Right foot ulcer Anxiety History of foot ulcer Obesity (BMI 30-39.9) Depression Rotator cuff arthropathy of left shoulder Vitamin D deficiency Allergic rhinitis Anemia Pure hypercholesterolemia Benign essential hypertension Diabetic polyneuropathy Type 2 diabetes mellitus with diabetic chronic kidney disease Erectile dysfunction Type 2 diabetes mellitus with hyperglycemia, with long-term current use of insulin Type 2 diabetes mellitus with diabetic polyneuropathy Type 2 diabetes mellitus with chronic kidney disease 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 LDL goal <70 Surgical History History of nasal surgery Family History Father Lung cancer Mother Hypertension Coronary artery disease CVD (cardiovascular disease) TIA (transient ischemic attack) Sister Diabetes Maternal Uncle Diabetes Other Mental health problem Social History Household Members: None Housing: Apartment Do you presently have visiting nurse or other home services: No Alcohol intake: current Alcohol intake frequency: holidays/special occasions only Patient Tobacco Use Status: Never used Tobacco e-Cigarette/Vaping Use: Never Used Second Hand Smoke Exposure: Yes service: No Current occupational status: unemployed Cognitive needs: No Hearing needs: No Vision needs: No Vital Signs 10/02/23 10:01 Height 5 ft 7 in Weight 237 lb BMI 37.1 BP 120/50 L Blood Pressure Location Rt brachial Position Sitting Pulse 77 Pulse Source Pulse Oximeter Pulse Oximetry (%) 98 Oxygen Delivery Method Room Air Physical Exam Vital Signs: Last Vital Signs Pulse 77 10/02/23 10:01 BP 120/50 L 10/02/23 10:01 Pulse Ox 98 10/02/23 10:01 Oxygen Delivery Method Room Air 10/02/23 10:01 BMI result Body Mass Index 37.1 Const General: comfortable Nutritional Appearance: well nourished Orientation/consciousness: patient oriented x3 HEENT Head: No normal to inspection Mouth: moist mucous membranes Neck Neck: Yes supple and Yes no JVD Resp Auscultation: clear to auscultation bilaterally, no rales and rub present Cardio Jugular venous distension: no JVD Palpation: no palpable S3 and no palpable S4 Heart sounds: no rubs GI Palpation (GI): Soft to palpation and nontender Percussion: No Fluid wave present General: Yes no CVA tenderness Back/Spine/Pelvis Back: no CVA tenderness Skin General skin exam: no rashes or lesions noted Neuro General: patient oriented x3 Extrem General: No clubbing Right upper extremity: edema Assessment & Plan Assessment & Plan (1) Chronic kidney disease, stage V: Comment: Most likely due to diabetic nephropathy. He has nephrotic range proteinuria. In the past basic serology was unremarkable. Code(s): N18.5 - Chronic kidney disease, stage 5 Plan: Goal is to slow the progression of renal disease. Concur with LISSY inhibitors. Optimize blood pressure Optimize blood sugar control. Continue to avoid nephrotoxic agents including NSAIDs. Cr unchanged Mild secondary hyperparathyroidism with Vit D deficiency Add Cholecalceferol and follow iPTH May need calcitriol Discussed the possible need for renal replacement therapy in the near future if there is no improvement in renal function. (2) Essential hypertension: Code(s): I10 - Essential (primary) hypertension Plan: BP suboptimal. Increase hydralazine to 50 mg PO TID. Decrease AMlodipine to 5 mg QD due to significant edema Titrate dose of hydralazine as tolerated to optimize blood pressure. Goal is to maintain blood pressure less than 130 mm of mercury systolic. 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 Encouraged to increase physical activity as well. Defer management to PCP (4) Anemia due to chronic kidney disease: Comment: Most likely due to erythropoietin deficiency iron TIBC ferritin B12 and folate. are normal Code(s): N18.9 - Chronic kidney disease, unspecified; D63.1 - Anemia in chronic kidney disease Plan: If hemoglobin drops further I will initiate Retacrit (5) Metabolic acidosis: Code(s): E87.20 - Acidosis, unspecified Plan: Added Sodium bicarbonate 650 mg BID Mild hyperkalemia Discussed and gave instructions for low K diet Plan Need to rule out obstructive sleep apnea. He may require sleep evaluation I have discussed this with him. Referred to [facility] service Ordered cardiology consultation as well Orders: Orders Basic Metabolic Panel 4 Weeks N18.4 - Chronic kidney disease, stage 4 (severe) Complete Blood Count no Diff 4 Weeks N18.4 - Chronic kidney disease, stage 4 (severe) Referrals Sleep Medicine Referral N18.4 - Chronic kidney disease, stage 4 (severe) Cardiology Referral N18.4 - Chronic kidney disease, stage 4 (severe) Medications: New sodium bicarbonate 650 mg PO BID 60 tabs 3RF cholecalciferol (vitamin D3) 25 mcg PO DAILY 90 caps 2RF Changed From amlodipine 10 mg PO DAILY 30 tabs 5RF I10 - Essential (primary) hypertension To amlodipine 5 mg PO DAILY 30 tabs 5RF I10 - Essential (primary) hypertension From hydralazine 25 mg PO TID 30 days 90 tabs 2RF I10 - Essential (primary) hypertension To hydralazine 50 mg PO TID 30 days 90 tabs 2RF I10 - Essential (primary) hypertension Coding Level of Care Code Est Pt Level 4 (43182) Diagnoses Chronic kidney disease, stage V N18.5 Essential hypertension I10 Type 2 diabetes mellitus with stage 3b chronic kidney disease, with long-term current use of insulin E11.22; N18.32; Z79.4 Diabetes mellitus usp insulin use: with usp use Chronic kidney disease stage: stage 3 (moderate) Chronic kidney disease stage 3 subtype: stage 3b (GFR 30-44) Anemia due to chronic kidney disease N18.9; D63.1 Metabolic acidosis E87.20 Results Reviewed Nephrology Results: Hgb 9.5 g/dl (14.0-18.0) L 09/29/23 WBC 7.7 X10*3/uL (4.8-10.8) 09/29/23 Plt Count 190 X10*3/uL (160-400) 09/29/23 Sodium 144 mmol/L (135-145) 09/29/23 Potassium 5.4 mmol/L (3.3-5.1) H 09/29/23 Chloride 118 mmol/L (96-108) H 09/29/23 Carbon Dioxide 17 mmol/L (22-29) L 09/29/23 BUN 43 mg/dL (9-16) H 09/29/23 Creatinine 5.09 mg/dL (0.5-1.4) H* 09/29/23 Calcium 8.8 mg/dL (8.4-10.2) 09/29/23 Phosphorus 3.6 mg/dL (2.7-4.5) 09/29/23 PTH Intact 228.9 pg/mL (8.7-77.1) H 09/29/23 Urine Protein 300 (3+) mg/dL (Neg-Trace) H 08/27/23
== END 2023-10-02 10:38 | disposition home or self-care (01) ==
PROVIDERS: PCP Internal Medicine; Visit Provider Internal Medicine Hypertension Specialist
DX: I12.9 Hypertensive chronic kidney disease with stage 1 through stage 4 chronic kidney disease, or unspecified chronic kidney disease (principal); N18.5 Chronic kidney disease, stage 5; E11.22 Type 2 diabetes mellitus with diabetic chronic kidney disease; N18.32 Chronic kidney disease, stage 3b; Z79.4 Long term (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 of insulin; N18.9 Chronic kidney disease, unspecified; D63.1 Anemia in chronic kidney disease; E87.20 Acidosis, unspecified
CPT/HCPCS: 99214

== ENCOUNTER → 2023-10-02 09:59 | Outpatient (BNVA) | payer OTHER, SELFPAY | PROVIDERS: PCP Internal Medicine; Visit Provider Internal Medicine Hypertension Specialist | DX: E11.42 Type 2 diabetes mellitus with diabetic polyneuropathy (principal); E11.22 Type 2 diabetes mellitus with diabetic chronic kidney disease; E11.65 Type 2 diabetes mellitus with hyperglycemia; N18.9 Chronic kidney disease, unspecified; I12.9 Hypertensive chronic kidney disease with stage 1 through stage 4 chronic kidney disease, or unspecified chronic kidney disease; N18.5 Chronic kidney disease, stage 5; D63.1 Anemia in chronic kidney disease; E87.20 Acidosis, unspecified; Z79.4 Long term (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 of insulin | CPT/HCPCS: 99212 ==

== ENCOUNTER 2023-10-22 12:55 | Outpatient (AMB) | payer OTHER, SELFPAY ==
--- NOTE | 2023-10-22 13:03 | A.OFFVIS_ITS ---
Vital Signs 10/22/23 13:04 Height 5 ft 7 in Weight 227 lb 1.218 oz BMI 35.6 BP 154/78 H Blood Pressure Location Lt brachial Position Sitting Pulse 70 Intake Visit Reasons: [employer]/ Dr Stone Leslie Athreya/ chronic kidney dz Intake Note: New patient dx chronic kidney dz c/o gary collazo Ergonomic Specialist Required: No Allergies No Known Allergies Allergy (Verified 10/02/23 10:03) Medication List - Last Reconciled 10/22/23 by Reginald Leiva MD amlodipine 5 mg PO DAILY atorvastatin 80 mg PO DAILY 90 days cholecalciferol (vitamin D3) 25 mcg PO DAILY flash glucose sensor (FreeStyle Lida 14 Day Sensor kit) USE DIRECTED EVERY 2 WEEKS hydralazine 50 mg PO TID 30 days insulin glargine (Lantus Solostar U-100 Insulin) 26 units (0.26 mL) subcut DAILY insulin lispro (Humalog KwikPen (U-100) Insulin) 8 units (0.08 mL) subcut TID 30 days lisinopril 40 mg (2 x 20 mg) PO DAILY oxycodone 5 mg PO BID-TID PRN 28 days pen needle, diabetic (BD Ultra-Fine Odette Pen Needle) 1 ea subcut QID sildenafil (Viagra) 25 mg PO DAILY PRN sodium bicarbonate 650 mg PO BID HPI Comments Details: Thank you for referring Howard in cardiology consultation today for cardiovascular evaluation. He has a pleasant 52-year-old male but has longstanding diabetes in the past and early stages not well controlled. More recently the diabetes better control but now has developed advanced renal dysfunction with stage 5 chronic kidney disease. As a result he is developed secondary issues including hyperkalemia, anemia of chronic disease and hypercalcemia. Patient also has uncontrolled hypertension for some time. Patient says any [place] has to walk up a hill he does feel some effort and feels some fatigue and tiredness. He does not say that he has exertional chest discomfort. He was referred here for further evaluation. He has been on antihypertensive therapy and this has been gradually increase although blood pressure remains difficult control. His amlodipine was reduced due to bilateral leg edema. He denies any orthopnea, PND or worsening shortness of breath. Denies any prolonged palpitation lightheadedness. He has been told by his that he snores a lot and he admits to having some daytime somnolence. He has significant proteinuria related to diabetic nephropathy. [facility] [place] Medical History Metabolic acidosis Right foot ulcer Anxiety History of foot ulcer Obesity (BMI 30-39.9) Depression Rotator cuff arthropathy of left shoulder Vitamin D deficiency Allergic rhinitis Anemia Pure hypercholesterolemia Benign essential hypertension Diabetic polyneuropathy Type 2 diabetes mellitus with diabetic chronic kidney disease Erectile dysfunction Type 2 diabetes mellitus with hyperglycemia, with long-term current use of insulin Type 2 diabetes mellitus with diabetic polyneuropathy Type 2 diabetes mellitus with chronic kidney disease 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 LDL goal <70 Surgical History History of nasal surgery Family History Father Lung cancer Mother Hypertension Coronary artery disease CVD (cardiovascular disease) TIA (transient ischemic attack) Sister Diabetes Maternal Uncle Diabetes Other Mental health problem Social History Household Members: None Housing: Apartment Do you presently have visiting nurse or other home services: No Alcohol intake: current Alcohol intake frequency: holidays/special occasions only Patient Tobacco Use Status: Never used Tobacco e-Cigarette/Vaping Use: Never Used Second Hand Smoke Exposure: Yes service: No Current occupational status: unemployed Cognitive needs: No Hearing needs: No Vision needs: No Review of Systems Const Denies chills, Denies daytime sleepiness, Denies fatigue, Denies fever(s), Denies frequent falls, Denies poor appetite, Denies snoring, Denies stops breathing during sleep, Denies weakness, Denies weight gain and Denies weight loss Eyes Denies loss of vision ENT Denies dizziness and Denies hearing loss Card Denies chest pain, Denies claudication, Denies leg edema, Denies lightheadedness, Denies palpitations, Denies dyspnea, Denies dyspnea on exertion and Denies orthopnea Resp Denies cough, Denies excessive phlegm production, Denies dyspnea, Denies dyspnea on exertion, Denies snoring and Denies wheezing GI Denies abdominal pain, Denies hematochezia, Denies change in bowel habits, Denies nausea and Denies vomiting Denies dysuria and Denies urinary frequency Musc Denies arthralgias, Denies muscle weakness, Denies numbness and Denies other (frequent falls) Skin/Breast Denies nail changes and Denies rash Neuro Denies Abnormal speech present, Denies dizziness, Denies frequent falls, Denies loss of vision, Denies memory loss, Denies numbness and Denies weakness Psych Denies depression and Denies memory loss Endo Denies fatigue and Denies palpitations Ashu/Lymph Reports easy bruising and Reports other (anemia) Aller/Immun Denies wheezing Physical Exam Vital Signs: Last Vital Signs Pulse 70 10/22/23 13:04 BP 154/78 H 10/22/23 13:04 BMI result Body Mass Index 35.6 Const General: cooperative, comfortable, no acute distress, alert, awake and Physically active Nutritional Appearance: obese Orientation/consciousness: patient oriented x3 Limitations: no limitations HEENT Head: Yes normocephalic and Yes atraumatic Neck Neck: Yes trachea midline, Yes supple and Yes no JVD Resp Effort & Inspection: normal respiratory effort Auscultation: clear to auscultation bilaterally Cardio Jugular venous distension: no JVD Palpation: normal PMI Rate: regular rate Rhythm: regular rhythm Heart sounds: S1 normal heart sound present, S2 normal heart sound present, no click, no gallops, no murmurs, no rubs and Other heart sounds present (S4 present) GI Auscultation: normal bowel sounds Skin General skin exam: no rashes or lesions noted Neuro General: patient oriented x3 and no focal motor deficits Speech: No Abnormal speech present Extrem General: No clubbing, No cyanosis and Yes edema (Two to 3+ below knee) Psych Appearance: grossly normal Office Procedures EKG Details: EKG shows normal sinus rhythm with normal EKG 54712-[id number], Complete Assessment & Plan Assessment & Plan (1) Exertional dyspnea: Code(s): R06.09 - Other forms of dyspnea Category: Medical Plan: Exertional shortness of breath in this middle-aged man with advanced kidney disease as well as longstanding diabetes longstanding hypertension, very high risk for cardiac abnormality. There is high risk for underlying obstructive coronary artery disease and myocardial ischemia needs to be ruled out. Will suggest exercise myocardial perfusion imaging to further evaluate for the same. Also high likelihood of underlying LV systolic and/or diastolic dysfunction hypertensive heart disease as well as development of pulmonary hypertension. Would suggest him to undergo an echocardiogram for further evaluation of the s moe. This was discussed with him in details. It is also possible that his shortness of breath could be related to uncontrolled hypertension with exercise. Will check that during the treadmill stress test. For now workup as above and further treatment based on the findings. (2) Uncontrolled hypertension: Code(s): I10 - Essential (primary) hypertension Category: Medical Plan: Uncontrolled hypertension for long time. He is developed leg edema which appears to be probably related to proteinuria/nephrotic syndrome related to diabetic nephropathy. There is no overt signs of congestive heart failure. Consider checking BNP. Continue more aggressive control blood pressure. Will meanwhile increase hydralazine to 100 mg b.i.d.. Advised to monitor blood pressure at home and maintain a log. Low-salt diet associated was suggested. Would suggest workup for secondary hypertension along with renal duplex and home sleep study. Further treatment of those conditions if present. If blood pressure remains elevated will consider adding labetalol to his regimen. Will follow with him in 6 weeks after above-mentioned test. Thank you for allowing me to partake in his care Orders: Orders CA echo transthoracic complete Today R06.09 - Other forms of dyspnea US renal doppler Today I10 - Essential (primary) hypertension CA stress test Today R06.09 - Other forms of dyspnea NM cardiolite stress test 2 Weeks R06.09 - Other forms of dyspnea, R07.9 - Ches t pain, unspecified RT home sleep study Today I10 - Essential (primary) hypertension Medications: New 2 hydralazine 100 mg PO BID 60 tabs 3RF I10 - Essential (primary) hypertension Discontinued hydralazine Discontinued Reason: Doctor's Order 50 mg PO TID 30 days 90 tabs 2RF I10 - Essential (primary) hypertension Coding Level of Care Code New Pt Level 4 (28281) Diagnoses Exertional dyspnea R06.09 Uncontrolled hypertension I10 CPT Codes EKG - CPT: 98276-[id number], Complete ([id number])
[2023-10-22 13:04] VITALS: BP 154/78; PULSE 70; BMI 35.6
== END 2023-10-22 14:03 | disposition home or self-care (01) ==
PROVIDERS: PCP Internal Medicine; Visit Provider Internal Medicine Cardiovascular Disease
DX: R06.09 Other forms of dyspnea (principal); I10 Essential (primary) hypertension
CPT/HCPCS: 93010; 99204

== ENCOUNTER → 2023-10-22 12:55 | Outpatient (BNVA) | payer OTHER, SELFPAY | PROVIDERS: PCP Internal Medicine; Visit Provider Internal Medicine Cardiovascular Disease | DX: R06.09 Other forms of dyspnea (principal); R07.9 Chest pain, unspecified; I10 Essential (primary) hypertension | CPT/HCPCS: 93005; 99202 ==

== ENCOUNTER 2023-10-24 18:10 | Inpatient (IN) | payer OTHER, SELFPAY ==
[2023-10-24] VITALS (7 sets, daily range): BP systolic 102–133; BP diastolic 33–55; PULSE 79–90; RESP 17–28; TEMP 34.4–37.2; O2SAT 98–100; BMI 34.6
--- NOTE | ~2023-10-24 | MR_ITS ---
MRI OF THE BRAIN WITHOUT IV CONTRAST MRI OF THE CERVICAL SPINE WITHOUT IV CONTRAST INDICATION: Dysphagia. Question herniation. COMPARISON: CT neck 10/28/2023. TECHNIQUE: Multiplanar multisequence MR imaging of the brain and cervical spine obtained without IV contrast. FINDINGS: BRAIN MRI: There is a large acute infarct involving the left VASCULAR ULTRASOUND TECHNICIAN territory exhibiting cortical petechial hemorrhage and cytotoxic edema that results in local cerebral sulcal effacement without midline shift. There are also probable acute embolic infarcts within the frontoparietal ball radiata bilaterally, the right subinsular white matter, and the right putamen. Diffusion weighted imaging within the posterior fossa is nondiagnostic due to artifact. There is diffusion restricting material within the occipital horn of the right lateral ventricle concerning for intraventricular pus which should be correlated for clinical signs of ventriculitis/infection. Chronic lacunar infarcts within the left cerebellum, the right orion, and the thalami bilaterally. Mild lateral and third ventriculomegaly with periventricular T2 signal changes make it difficult to exclude transependymal CSF effusion. There is no extra-axial surface collection. 2 cm cerebellar tonsillar herniation below the foramen magnum suggesting a Chiari I malformation resulting in effacement of the CSF cisterns at the level of the foramen magnum in mass effect on the cervicomedullary junction. Atlantooccipital assimilation bilaterally. Platybasia again noted. CERVICAL SPINE MRI: Very limited and motion degraded MRI of the cervical spine. Nondiagnostic assessment for cervical cord signal changes due to the degree of artifact. Vertebral body heights are maintained. Disc volumes are preserved. 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 There is no bone marrow edema. There are no acute fractures. Cervical arterial flow voids are maintained. No significant extraspinal soft tissue findings. The disc levels are not well assessed due to the degree of artifact. Uncovertebral joint spurring and facet arthropathy result in mild multilevel foraminal encroachment. Shallow disc protrusions likely mildly narrow the central canal at C3-C4, C4-C5, C5-C6, and C6-C7. MR/MR cervical spine wo con IMPRESSION: - There is a large acute infarct involving the left VASCULAR ULTRASOUND TECHNICIAN territory exhibiting cortical petechial hemorrhage and cytotoxic edema that results in local cerebral sulcal effacement without midline shift. There are also probable acute embolic infarcts within the frontoparietal ball radiata bilaterally, the right subinsular white matter, and the right putamen. The diffusion series in the posterior fossa is nondiagnostic due to artifact. - There is diffusion restricting material within the occipital horn of the right lateral ventricle concerning for intraventricular pus which should be correlated for clinical signs of ventriculitis/infection. Mild lateral and third ventriculomegaly with periventricular T2 signal changes make it difficult to exclude transependymal CSF effusion. Postcontrast imaging could be obtained as indicated. - 2 cm cerebellar tonsillar herniation below the foramen magnum suggesting a Chiari I malformation resulting in effacement of the CSF cisterns at the level of the foramen magnum and mass effect on the cervicomedullary junction. Atlantooccipital assimilation bilaterally. Platybasia again noted. - Chronic lacunar infarcts within the left cerebellum, the right orion, and the thalami bilaterally. - Partially nondiagnostic MRI of the cervical spine due to significant motion artifact. There is multilevel cervical spondylosis. Nondiagnostic assessment for signal changes within the cervical spinal cord due to the degree of artifact. The disc levels are not diagnostically assessed due to the degree of artifact. Covering provider paged with these findings at 2:53 PM on 10/29/2023.
--- NOTE | ~2023-10-24 | FL_ITS ---
EXAMINATION: Modified Barium Swallow CLINICAL INFORMATION: Dysphagia COMPARISON: None TECHNIQUE: Modified barium swallow was performed under lateral fluoroscopy with patient in standing position. Barium mixed with solids and liquids of different consistencies was administered by the speech pathologist. Examination was recorded in the fluoroscopy suite. FINDINGS: Aspiration was observed with thin liquids. Trace laryngeal penetration was seen with nectar thick barium. FLUOROSCOPY TIME: 2 minutes 31 seconds Number of Spot Images: 1 DOSE AREA PRODUCT: [id number] uGy-m2 (microgray-meter squared) FL/FL barium swallow modified IMPRESSION: Aspiration was observed with thin liquids. Trace laryngeal penetration was seen with nectar thick barium. Refer to the speech therapy report for further clarification This procedure was performed by Tonny Sawant PA-C, and supervised by Dr. Duke
--- NOTE | ~2023-10-24 | MR_ITS ---
MRI OF THE BRAIN WITHOUT IV CONTRAST MRI OF THE CERVICAL SPINE WITHOUT IV CONTRAST INDICATION: Dysphagia. Question herniation. COMPARISON: CT neck 10/28/2023. TECHNIQUE: Multiplanar multisequence MR imaging of the brain and cervical spine obtained without IV contrast. FINDINGS: BRAIN MRI: There is a large acute infarct involving the left MOTION STUDY TECHNICIAN territory exhibiting cortical petechial hemorrhage and cytotoxic edema that results in local cerebral sulcal effacement without midline shift. There are also probable acute embolic infarcts within the frontoparietal ball radiata bilaterally, the right subinsular white matter, and the right putamen. Diffusion weighted imaging within the posterior fossa is nondiagnostic due to artifact. There is diffusion restricting material within the occipital horn of the right lateral ventricle concerning for intraventricular pus which should be correlated for clinical signs of ventriculitis/infection. Chronic lacunar infarcts within the left cerebellum, the right orion, and the thalami bilaterally. Mild lateral and third ventriculomegaly with periventricular T2 signal changes make it difficult to exclude transependymal CSF effusion. There is no extra-axial surface collection. 2 cm cerebellar tonsillar herniation below the foramen magnum suggesting a Chiari I malformation resulting in effacement of the CSF cisterns at the level of the foramen magnum in mass effect on the cervicomedullary junction. Atlantooccipital assimilation bilaterally. Platybasia again noted. CERVICAL SPINE MRI: Very limited and motion degraded MRI of the cervical spine. Nondiagnostic assessment for cervical cord signal changes due to the degree of artifact. Vertebral body heights are maintained. Disc volumes are preserved. 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 There is no bone marrow edema. There are no acute fractures. Cervical arterial flow voids are maintained. No significant extraspinal soft tissue findings. The disc levels are not well assessed due to the degree of artifact. Uncovertebral joint spurring and facet arthropathy result in mild multilevel foraminal encroachment. Shallow disc protrusions likely mildly narrow the central canal at C3-C4, C4-C5, C5-C6, and C6-C7. MR/MR head/brain wo con IMPRESSION: - There is a large acute infarct involving the left MOTION STUDY TECHNICIAN territory exhibiting cortical petechial hemorrhage and cytotoxic edema that results in local cerebral sulcal effacement without midline shift. There are also probable acute embolic infarcts within the frontoparietal ball radiata bilaterally, the right subinsular white matter, and the right putamen. The diffusion series in the posterior fossa is nondiagnostic due to artifact. - There is diffusion restricting material within the occipital horn of the right lateral ventricle concerning for intraventricular pus which should be correlated for clinical signs of ventriculitis/infection. Mild lateral and third ventriculomegaly with periventricular T2 signal changes make it difficult to exclude transependymal CSF effusion. Postcontrast imaging could be obtained as indicated. - 2 cm cerebellar tonsillar herniation below the foramen magnum suggesting a Chiari I malformation resulting in effacement of the CSF cisterns at the level of the foramen magnum and mass effect on the cervicomedullary junction. Atlantooccipital assimilation bilaterally. Platybasia again noted. - Chronic lacunar infarcts within the left cerebellum, the right orion, and the thalami bilaterally. - Partially nondiagnostic MRI of the cervical spine due to significant motion artifact. There is multilevel cervical spondylosis. Nondiagnostic assessment for signal changes within the cervical spinal cord due to the degree of artifact. The disc levels are not diagnostically assessed due to the degree of artifact. Covering provider paged with these findings at 2:53 PM on 10/29/2023.
--- NOTE | ~2023-10-24 | XR_ITS ---
EXAMINATION: PORTABLE CHEST 1 VIEW CLINICAL INFORMATION: Cough. COMPARISON: 08/27/2023. TECHNIQUE: Portable frontal view of the chest was obtained. FINDINGS: The lungs are hypoexpanded. No focal infiltrate, effusion, edema, or pneumothorax. Cardiac and mediastinal silhouettes are within normal limits for technique. No acute bony abnormality seen. XR/XR chest 1V IMPRESSION: No evidence of acute disease.
--- NOTE | ~2023-10-24 | CT_ITS ---
CT SOFT TISSUE NECK WITHOUT CONTRAST CLINICAL INFORMATION: Dysphagia. COMPARISON: Barium swallow 10/27/2023. TECHNIQUE: Helical imaging was performed in the axial plane with generation of coronal and sagittal reformatted images. This CT examination was performed using dose optimization techniques as appropriate, variously including the following: *Automated exposure control *Adjustment of mA and/or kV according to patient size (this includes techniques or standardized protocols for targeted exams where dose is matched to indication/reason for exam; i.e. extremities or head) *Use of iterative reconstruction technique FINDINGS: This is a very limited noncontrast CT of the neck. Etiologies of dysphagia may not be detected without contrast. The unenhanced thyroid gland, submandibular glands, and parotid glands are unremarkable. The orbital soft tissues are unremarkable. There are no retropharyngeal fluid collections. The superior cornu of the thyroid cartilage encroaches upon the right greater than left piriform sinus which can contribute to dysphagia; superior thyroid cornu syndrome. Laryngeal structures are symmetric and normal. Nondiagnostic assessment of the superficial mucosal spaces given the lack of contrast. Right IJ Central venous catheter in place. Imaged lungs are clear. Imaged upper mediastinum is unremarkable. Cervical spondylosis. No acute nor suspicious osseous findings. 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 The cerebellar tonsils are low-lying, extending up to 2 cm below the foramen magnum suggesting a Chiari I malformation. Paranasal sinuses remain well-aerated. Chronic nasal bone deformity bilaterally. Chronic traumatic deformity of the left orbital floor. Mastoid air cells and middle ear cavities are clear. Periapical lucency surrounding the root of the left first mandibular molar. Partially imaged probable large acute to subacute infarct within the left STEREOTYPER territory involving significant portions of the left occipital lobe and left temporal occipital lobe junction. There is local cerebral sulcal effacement without midline shift. CT/CT soft tissue neck wo IV con IMPRESSION: - Partially imaged probable large acute to subacute infarct within the left STEREOTYPER territory involving significant portions of the left occipital lobe and left temporal occipital lobe junction. There is local cerebral sulcal effacement without midline shift. There may be a small acute infarct within the left cerebellum as well. MRI could be obtained for more definitive assessment. - Low lying cerebellar tonsils extend 2 cm below the foramen magnum suggesting a Chiari I malformation with associated mass effect on the brainstem that can be further assessed with MRI. 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 - This is a very limited noncontrast CT of the neck. Etiologies of dysphagia may not be detected without contrast. The superior cornu of the thyroid cartilage encroaches upon the right greater than left piriform sinus which can contribute to dysphagia; superior thyroid cornu syndrome. Covering provider paged with these findings at 5:26 PM on 10/28/2023.
--- NOTE | ~2023-10-24 | XR_ITS ---
EXAMINATION: XR CHEST CLINICAL INFORMATION: Dialysis line COMPARISON: Same date at 6:55 PM TECHNIQUE: Frontal view of the chest was obtained. FINDINGS: Double-J right IJ central venous catheter tip terminates over the mid SVC. Cardiac contour and left lung base is not fully imaged on this study. Lung lungs are low with bibasilar atelectasis. Prominence of the pulmonary vasculature is likely related to low lung volumes and semiupright positioning. No consolidation or pneumothorax. No acute osseous findings. XR/XR chest 1V IMPRESSION: 1. Double-J right IJ central venous catheter tip terminates over the mid SVC. 2. Low lung volumes with bibasilar atelectasis. No pneumothorax.
--- NOTE | ~2023-10-24 | XR_ITS ---
EXAMINATION: XR CHEST CLINICAL INFORMATION: Hypoxia COMPARISON: 10/24/2023 TECHNIQUE: Frontal view of the chest was obtained. FINDINGS: The tip of the right IJ catheter is at level of the mid superior vena cava. Lungs are adequately expanded and grossly clear. No pulmonary edema, consolidation or pleural effusion. No pneumothorax. The visualized bones are intact. XR/XR chest 1V IMPRESSION: No acute pulmonary disease. There is no radiographic evidence of pneumonia or congestive heart failure.
--- NOTE | ~2023-10-24 | CT_ITS ---
EXAMINATION: CT ABDOMEN AND PELVIS WITHOUT CONTRAST CLINICAL INFORMATION: Elevated lactate level; abdominal pain. COMPARISON: CT abdomen and pelvis dated 06/04/2021. TECHNIQUE: Multidetector volumetric imaging was performed from the superior aspect of the liver through the pubic symphysis. Sagittal and coronal reformatted images were obtained on the technologist's workstation. The examination is limited by significant motion artifact. This CT examination was performed using dose optimization techniques as appropriate, variously including the following: *Automated exposure control *Adjustment of mA and/or kV according to patient size (this includes techniques or standardized protocols for targeted exams where dose is matched to indication/reason for exam; i.e. extremities or head) *Use of iterative reconstruction technique DLP: 1181 mGy-cm FINDINGS: LUNG BASES: The visualized lung bases are unremarkable. LIVER, GALLBLADDER, AND BILIARY TREE: The liver is normal in size, shape, and attenuation. No focal hepatic lesion or biliary ductal dilatation is present. The gallbladder is unremarkable with no evidence of radiopaque gallstones, gallbladder wall thickening, or obvious pericholecystic inflammatory changes. PANCREAS: Unremarkable. SPLEEN: Unremarkable. ADRENAL GLANDS: Unremarkable. KIDNEYS AND URETERS: The kidneys are normal in shape and attenuation. There is bilateral renal cortical thinning. No hydronephrosis, hydroureter, or calculi seen. There are low-attenuation bilateral renal cysts No perinephric stranding. BLADDER: The urinary bladder is partially decompressed by a Randolph catheter. No obvious bladder wall thickening is noted. GASTROINTESTINAL TRACT: The small and large bowel are unremarkable. The appendix is unremarkable. Evaluation for mesenteric fat stranding is significantly limited by motion artifact. ABDOMINAL WALL: There is a tiny fat-containing umbilical hernia. LYMPH NODES: Normal. VASCULAR: There is mild aortoiliac atherosclerotic calcification. No abdominal aortic aneurysm is seen. PELVIC VISCERA: The prostate and seminal vesicles are unremarkable. OSSEOUS STRUCTURES: There is multi-level marked lower thoracic and mild lumbar endplate arthropathy. No acute or aggressive osseous finding is noted. FREE FLUID: A small amount of low-attenuation free fluid is seen within the anterior pelvis (3:79 and 80 and 8:67), anterior to a loop of sigmoid colon. CT/CT abdomen pelvis wo IV con IMPRESSION: Imaging is limited by motion artifact. No bowel obstruction, free intraperitoneal air or abscess is seen. The appendix appears to be normal in caliber, without finding convincing for appendicitis. No diverticulosis or diverticulitis is seen. There is a small amount of nonspecific free fluid in the anterior pelvis. No focal bowel wall thickening or portal venous gas is noted. Fleischner guidelines were followed.
[2023-10-24 18:22] LABS: Glucose, Whole Blood > 600 mg/dL (60-115)
--- NOTE | 2023-10-24 18:30 | ECG_ITS ---
Test Reason : ABDOMINAL PAIN Blood Pressure : / mmHG Vent. Rate : 083 BPM Atrial Rate : 000 BPM P-R Int : 000 ms QRS Dur : 118 ms QT Int : 424 ms P-R-T Axes : 000 -08 026 degrees QTc Int : 498 ms Normal sinus rhythm with first degree AV block Nonspecific ST abnormality Prolonged QT Abnormal ECG When compared with ECG of 16-MAY-2021 20:48, First degree AV block nonspecific ST changes Referred By: Katina Ryan Electronically Signed By:Rene Fisher
[2023-10-24 18:31] LABS: MANUAL DIFF FLAG NO
--- NOTE | 2023-10-24 18:40 | ED.WEAKNESS ---
HPI - Weakness General Chief complaint: General Medical Stated complaint: N/V/D, diabetes, stage 5 renal fail, AMS Time Seen by Provider: 10/24/23 18:22 Source: patient, EMS and old records reviewed Mode of arrival: EMS Limitations: other (poor historian) History of Present Illness HPI Narrative: 53 yo male with PMH of HTN, DM, neuropathy, CKD recent Cr around 5, HLD, anemia, bacteremia, anxiety, depression, lower ext edema decreased amlodipine - comes in with c/o feeling weak, tired, n/v/d starting yesterday. Notes he has not taken his insulin since yesterday and blood sugars have been high. He denies hx of DKA. He is alert and oriented x 3. He denies travel, food exposures or sick contacts. No recent antibiotic use. He denies abdominal pain to me. MD Complaint: generalized weakness (n/v/d high blood sugards) Onset (ago): day(s) (1) Duration: constant Location: generalized Related Data Home Medications ?Medication ?Instructions ?Recorded ?Confirmed hydralazine 50 mg tablet 50 mg PO TID 10/24/23 10/24/23 oxycodone 5 mg tablet 5 mg PO TID PRN severe pain 10/24/23 Previous Rx's ?Medication ?Instructions ?Recorded flash glucose sensor ([employer] #2 kits 10/17/21 Lida 14 Day Sensor kit) atorvastatin 80 mg tablet 80 mg PO DAILY 90 days #90 tabs 01/28/22 insulin lispro 100 unit/mL 8 unit (0.08 mL) subcut TID 30 03/04/23 subcutaneous pen (Humalog #15 mL (U-100) Insulin) lisinopril 20 mg tablet 40 mg (2 x 20 mg) PO DAILY #180 09/07/23 tabs insulin glargine 100 unit/mL (3 26 unit (0.26 mL) subcut DAILY #15 09/09/23 mL) subcutaneous pen (Lantus mL Solostar U-100 Insulin) amlodipine 5 mg tablet 5 mg PO DAILY #30 tabs 10/02/23 cholecalciferol (vitamin D3) 25 25 mcg PO DAILY #90 caps 10/02/23 mcg (1,000 unit) capsule sodium bicarbonate 650 mg tablet 650 mg PO BID #60 tabs 10/02/23 Allergies Allergy/AdvReac Type Severity Reaction Status Date / Time No Known Allergies Allergy Verified 10/24/23 18:33 [facility] Past Medical History Attestation statement: The following information was validated with the patient. Source: old records reviewed Medical History (Updated 10/24/23 @ 23:13 by Brenna Rodríguez NP) Metabolic acidosis Right foot ulcer Anxiety History of foot ulcer Obesity (BMI 30-39.9) Depression Rotator cuff arthropathy of left shoulder Vitamin D deficiency Allergic rhinitis Anemia Pure hypercholesterolemia Benign essential hypertension Diabetic polyneuropathy Type 2 diabetes mellitus with diabetic chronic kidney disease Erectile dysfunction Type 2 diabetes mellitus with hyperglycemia, with long-term current use of insulin Type 2 diabetes mellitus with diabetic polyneuropathy Type 2 diabetes mellitus with chronic kidney disease 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 LDL goal <70 Surgical History History of nasal surgery Family History Family History Father Lung cancer Mother Hypertension Coronary artery disease CVD (cardiovascular disease) TIA (transient ischemic attack) Sister Diabetes Maternal Uncle Diabetes Other Mental health problem Social History Social History Household Members: Unknown / Unable to assess Housing: Unknown / Unable to assess Do you presently have visiting nurse or other home services: No Alcohol intake: current Alcohol intake frequency: holidays/special occasions only Patient Tobacco Use Status: Never used Tobacco Smoked in Last 30 Days: No e-Cigarette/Vaping Use: Never Used Second Hand Smoke Exposure: Yes Use of substances other than those prescribed or required for medical reasons: No Advance Directives: No Advance Directives Information Provided: No Do you have a plan to hurt others: No Plan Recently lost weight without trying: No How much weight loss: Unsure Eating poorly because of decreased appetite: No Nutrition screen score: 2 Nutrition Risks: Diabetes new onset/Uncontrolled Poor oral hygiene: No service: No Current occupational status: unemployed Cognitive needs: No Hearing needs: No Vision needs: No Physical Exam Vital Signs: Vital Signs: Last Vital Signs Temp 95.4 F L 10/24/23 23:00 Pulse 79 10/24/23 23:00 Resp 17 10/24/23 23:00 BP 102/42 L 10/24/23 23:00 Pulse Ox 98 10/24/23 23:00 O2 Del Method Room Air 10/24/23 23:00 BMI result Body Mass Index 34.6 Appearance: Alert. Oriented X3. Moderate acute distress. Eyes: Pupils equal, round and reactive to light. ENT: Pharynx dry MM Neck: Normal inspection. Neck supple. CVS: tachycardic heart rate and rhythm. Pulses normal. Respiratory: Kussmaul respirations - rapid and shallow Breath sounds normal. Abdomen: Soft and nontender. Skin: Skin warm and dry. Normal skin color. poor skin turgor. Extremities: 1+ ankle symmetric pitting lower extremity edema. No calf ttp Neuro: Oriented X 3. No motor deficit. No sensory deficit. Course Course Course Narrative: patient is obese IBS is 68 kg 30cc/kg bolus ordered 2500mL ordered lactic acidosis due to acute renal failure and DKA not infection or severe sepsis. altered mental status due to DKA not infection or severe sepsis elevated liver enzymes, worsening renal failure, leukocytosis due to dehydration DKA and not infection or severe sepsis. Medications Administered Generic Name Dose Route Start Last Admin Trade Name Freq PRN Reason Stop Dose Admin Heparin Sodium (Porcine) 5,000 unit 10/24/23 21:00 10/24/23 21:39 Heparin Sodium,Porcine 5,000 Unit/Ml Vial SUBCUT 5,000 unit TID ROSS Administration Insulin Human Regular 100 unit in 100 mls @ 8 mls/hr 10/24/23 19:15 10/24/23 22:42 Myxredlin IVCONT 30 unit/hr .[id number] ROSS 30 mls/hr Administration Protocol 8 UNIT/HR Sodium Bicarbonate 150 meq/ 1,000 mls @ 100 mls/hr 10/24/23 22:00 10/24/23 22:35 Dextrose IV 100 mls/hr .Q10H ROSS Administration Discontinued Medications Generic Name Dose Route Start Last Admin Trade Name Freq PRN Reason Stop Dose Admin Albuterol Sulfate 5 mg 10/24/23 19:24 10/24/23 19:35 Albuterol Sulfate (0.083%) 2.5 Mg/3 Ml Vial.Neb INHALE 10/24/23 19:25 5 mg ONCE ONE Administration Sodium Chloride 1,000 mls @ 999 mls/hr 10/24/23 18:37 10/24/23 20:19 Ns IV 10/24/23 19:37 Infused .Q1H1M ONE Infusion Sodium Chloride 1,000 mls @ 999 mls/hr 10/24/23 19:15 10/24/23 20:19 Ns IV 10/24/23 20:15 Infused .Q1H1M ROSS Infusion Calcium Gluconate 2 gm in 100 mls @ 400 mls/hr 10/24/23 19:30 10/24/23 20:11 Calcium Gluconate IV 10/24/23 19:44 Infused ONCE ONE Infusion Sodium Chloride 500 mls @ 500 mls/hr 10/24/23 19:32 10/24/23 20:19 Ns IV 10/24/23 20:31 Infused .Q1H ONE Infusion Vancomycin HCl 2,000 mg in 500 mls @ 250 mls/hr 10/24/23 21:58 10/24/23 22:58 Vancomycin/Ns IV 10/24/23 23:57 250 mls/hr ONCE ONE Administration Insulin Human Regular 10 unit 10/24/23 19:46 10/24/23 19:50 Insulin Regular, Human 100 Unit/Ml 3 Ml Vial IVPUSH 10/24/23 19:47 10 unit ONCE ONE Administration Midazolam HCl 2 mg 10/24/23 23:07 10/24/23 22:45 Midazolam Hcl/Pf 2 Mg/2 Ml Vial IVPUSH 10/24/23 23:08 2 mg ONCE ONE Administration Sodium Bicarbonate 50 meq 10/24/23 19:24 10/24/23 19:33 Sodium Bicarbonate 8.4% 50 Meq/50 Ml Syringe IVPUSH 10/24/23 19:25 50 meq ONCE ONE Administration Sodium Bicarbonate 50 meq 10/24/23 22:00 10/24/23 22:01 Sodium Bicarbonate 8.4% 50 Meq/50 Ml Vial IVPUSH 10/24/23 22:01 50 meq ONCE ONE Administration Sodium Bicarbonate 50 meq 10/24/23 22:00 10/24/23 22:01 Sodium Bicarbonate 8.4% 50 Meq/50 Ml Vial IVPUSH 10/24/23 22:01 50 meq ONCE ONE Administration Medical Decision Making Medical Decision Making MDM Narrative: 53 yo male with PMH of HTN, DM, neuropathy, CKD recent Cr around 5, HLD, anemia, bacteremia, anxiety, depression, lower ext edema here with c/o n/v/d and not taking his insuling he has clinical signs of DKA and t waves are peaked on EKG at this time will start on IVF and IV insulin with gtt, fluids ordered - has hx of edema that nephrology blamed amlodipine for. Will monitor closely and plan to admit to ICU - he denies preceding infectious issue or CP/SOB. Differential Diagnosis Differential Diagnoses: The differential diagnosis associated with the presentation includes DKA, renal failure Admission/Observation Consideration of admission/observation: Escalation of care including admission/observation considered ICU admission given HCO3 Consult Healthcare Provider Management of the patient was discussed with: [facility] Department Supervisor (ICU will admit) Dr. Ulloa aware Dr. Sesay to admit patient Lab Data MDM Lab Attestation statement: I reviewed the patient's lab results. 10/24/23 18:28 10/24/23 21:38 Labs: Lab Results 10/24/23 10/24/23 10/24/23 Range/Units 18:19 18:28 18:43 WBC 14.8 H (4.8-10.8) X10*3/uL RBC 2.71 L (4.60-5.80) X10*6/uL Hgb 8.3 L (14.0-18.0) g/dl Hct 29.5 L (42.0-52.0) % MCV 108.9 H (80.0-98.0) fL MCH 30.6 (27.0-33.0) pg MCHC 28.1 L (31.0-36.0) g/dl RDW 13.2 (11.0-16.0) % Plt Count 255 D (160-400) X10*3/uL MPV 11.7 (9.4-12.4) fL Immature Gran % (Auto) 1.9 H (0.0-0.4) % Neut % (Auto) 86.8 H (45-73) % Lymph % (Auto) 4.8 L (20-40) % Waldo % (Auto) 5.9 (2-11) % Eos % (Auto) 0.1 (0-4) % Baso % (Auto) 0.5 (0-2) % Lymph # (Auto) 0.7 L (1.2-4.9) X10*3/uL Waldo # (Auto) 0.9 (0.1-1.2) X10*3/uL Eos # (Auto) 0.0 (0.0-0.4) X10*3/uL Baso # (Auto) 0.1 (0.0-0.2) X10*3/uL Abs Immat Gran (auto) 0.28 H (0.00-0.03) X10*3/uL Absolute Neuts (auto) 12.8 H (2.0-8.3) x10*3/uL Absolute Nucleated RBC 0.000 (0.0-0.012) X10*3/uL Nucleated RBC % (auto) 0.0 (0.0-0.2) /100WBC VBG pH (7.32-7.43) VBG pCO2 mmHg VBG pO2 mmHg VBG HCO3 (22-26) mmol/L VBG O2 Saturation % VBG Base Excess mmol/L Sodium 126 L (135-145) mmol/L Potassium 8.3 H* D (3.3-5.1) mmol/L Chloride 97 (96-108) mmol/L Carbon Dioxide < 5 L* D (22-29) mmol/L Anion Gap TNP BUN 86 H (9-16) mg/dL Creatinine 7.21 H* (0.5-1.4) mg/dL Estim Creat Clear Calc 13.8 Estimated GFR 8 POC Glucose > 600 H* > 600 H* (60-115) mg/dL Random Glucose 1228 H* (60-115) mg/dL Insulin Level (2-29) uU/mL Lactic Acid (0.5-2.0) mmol/L Calcium 8.2 L D (8.4-10.2) mg/dL Magnesium (1.6-2.6) mg/dL Total Bilirubin (0.0-1.0) mg/dL Direct Bilirubin (0.0-0.5) mg/dL AST (5-37) U/L ALT (0-40) U/L Alkaline Phosphatase (39-117) U/L Troponin I High Sens 88.5 H (<3.5-35.0) ng/L B-Natriuretic Peptide 830 H (<100) pg/mL Total Protein (6.5-8.0) g/dL Albumin (3.5-5.0) g/dL Lipase (8-78) U/L Beta-Hydroxybutyrate (0.02-0.27) mmol/L Influenza Type A (PCR) (Negative) Influenza Type B (PCR) (Negative) RSV RNA Qual (PCR) (Negative) SARS-CoV-2 RNA (RT-PCR) (Negative) 10/24/23 10/24/23 10/24/23 Range/Units 18:51 18:57 18:58 WBC (4.8-10.8) X10*3/uL RBC (4.60-5.80) X10*6/uL Hgb (14.0-18.0) g/dl Hct (42.0-52.0) % MCV (80.0-98.0) fL MCH (27.0-33.0) pg MCHC (31.0-36.0) g/dl RDW (11.0-16.0) % Plt Count (160-400) X10*3/uL MPV (9.4-12.4) fL Immature Gran % (Auto) (0.0-0.4) % Neut % (Auto) (45-73) % Lymph % (Auto) (20-40) % Waldo % (Auto) (2-11) % Eos % (Auto) (0-4) % Baso % (Auto) (0-2) % Lymph # (Auto) (1.2-4.9) X10*3/uL Waldo # (Auto) (0.1-1.2) X10*3/uL Eos # (Auto) (0.0-0.4) X10*3/uL Baso # (Auto) (0.0-0.2) X10*3/uL Abs Immat Gran (auto) (0.00-0.03) X10*3/uL Absolute Neuts (auto) (2.0-8.3) x10*3/uL Absolute Nucleated RBC (0.0-0.012) X10*3/uL Nucleated RBC % (auto) (0.0-0.2) /100WBC VBG pH 6.85 L* (7.32-7.43) VBG pCO2 13 mmHg VBG pO2 175 mmHg VBG HCO3 2 L (22-26) mmol/L VBG O2 Saturation 99.0 % VBG Base Excess -29.3 mmol/L Sodium (135-145) mmol/L Potassium (3.3-5.1) mmol/L Chloride (96-108) mmol/L Carbon Dioxide (22-29) mmol/L Anion Gap BUN (9-16) mg/dL Creatinine (0.5-1.4) mg/dL Estim Creat Clear Calc Estimated GFR POC Glucose > 600 H* (60-115) mg/dL Random Glucose (60-115) mg/dL Insulin Level (2-29) uU/mL Lactic Acid 5.8 H* (0.5-2.0) mmol/L Calcium (8.4-10.2) mg/dL Magnesium (1.6-2.6) mg/dL Total Bilirubin (0.0-1.0) mg/dL Direct Bilirubin (0.0-0.5) mg/dL AST (5-37) U/L ALT (0-40) U/L Alkaline Phosphatase (39-117) U/L Troponin I High Sens (<3.5-35.0) ng/L B-Natriuretic Peptide (<100) pg/mL Total Protein (6.5-8.0) g/dL Albumin (3.5-5.0) g/dL Lipase (8-78) U/L Beta-Hydroxybutyrate (0.02-0.27) mmol/L Influenza Type A (PCR) (Negative) Influenza Type B (PCR) (Negative) RSV RNA Qual (PCR) (Negative) SARS-CoV-2 RNA (RT-PCR) (Negative) 10/24/23 10/24/23 Range/Units 19:21 19:25 WBC (4.8-10.8) X10*3/uL RBC (4.60-5.80) X10*6/uL Hgb (14.0-18.0) g/dl Hct (42.0-52.0) % MCV (80.0-98.0) fL MCH (27.0-33.0) pg MCHC (31.0-36.0) g/dl RDW (11.0-16.0) % Plt Count (160-400) X10*3/uL MPV (9.4-12.4) fL Immature Gran % (Auto) (0.0-0.4) % Neut % (Auto) (45-73) % Lymph % (Auto) (20-40) % Waldo % (Auto) (2-11) % Eos % (Auto) (0-4) % Baso % (Auto) (0-2) % Lymph # (Auto) (1.2-4.9) X10*3/uL Waldo # (Auto) (0.1-1.2) X10*3/uL Eos # (Auto) (0.0-0.4) X10*3/uL Baso # (Auto) (0.0-0.2) X10*3/uL Abs Immat Gran (auto) (0.00-0.03) X10*3/uL Absolute Neuts (auto) (2.0-8.3) x10*3/uL Absolute Nucleated RBC (0.0-0.012) X10*3/uL Nucleated RBC % (auto) (0.0-0.2) /100WBC VBG pH (7.32-7.43) VBG pCO2 mmHg VBG pO2 mmHg VBG HCO3 (22-26) mmol/L VBG O2 Saturation % VBG Base Excess mmol/L Sodium (135-145) mmol/L Potassium (3.3-5.1) mmol/L Chloride (96-108) mmol/L Carbon Dioxide (22-29) mmol/L Anion Gap BUN (9-16) mg/dL Creatinine (0.5-1.4) mg/dL Estim Creat Clear Calc Estimated GFR POC Glucose (60-115) mg/dL Random Glucose (60-115) mg/dL Insulin Level < 2 L (2-29) uU/mL Lactic Acid (0.5-2.0) mmol/L Calcium (8.4-10.2) mg/dL Magnesium 1.9 (1.6-2.6) mg/dL Total Bilirubin 0.3 (0.0-1.0) mg/dL Direct Bilirubin 0.2 (0.0-0.5) mg/dL AST 25 (5-37) U/L ALT 91 H (0-40) U/L Alkaline Phosphatase 134 H (39-117) U/L Troponin I High Sens (<3.5-35.0) ng/L B-Natriuretic Peptide (<100) pg/mL Total Protein 6.3 L (6.5-8.0) g/dL Albumin 3.7 (3.5-5.0) g/dL Lipase 36 (8-78) U/L Beta-Hydroxybutyrate 8.35 H (0.02-0.27) mmol/L Influenza Type A (PCR) NEGATIVE (Negative) Influenza Type B (PCR) NEGATIVE (Negative) RSV RNA Qual (PCR) NEGATIVE (Negative) SARS-CoV-2 RNA (RT-PCR) NEGATIVE (Negative) Independent Interpretation I performed an independent interpretation of an: EKG and Plain X-Ray Interpretation: Rate: 82 Rhythm: NSR with 1st degree AVB Rattan: normal Normal P waves. 1st degree AVB Normal QRS complex. ST T wave : peaked t waves, no HANANE qTC: 504 prior studies: no acute ischemia The study has been interpreted contemporaneously by me. . Radiology Impression Discussion of test interpretation with radiology: I have reviewed the radiologist's reading. External Record Review External record reviewed: Inpatient record Procedures EJ/Peripheral Line Arm R: Time Out Performed: Yes Skin Cleansed in Sterile Fashion: Yes Size (gauge): 20 IV Secured and Dressing Applied: Yes Patient Tolerated Procedure: well and no complications Critical Care Time Critical Care Time Critical Care Time: Yes Total Critical Care Time: 60 Attestation: IVFx2L, IV insulin, consults, rapid correction of K, admission to ICU I attest to this time spent taking care of the patient Discharge Plan Discharge Clinical Impression: Acute hyperkalemia DKA (diabetic ketoacidosis) Qualifiers: Diabetes mellitus type: type 1 Diabetes mellitus complication detail: without coma Qualified Code(s): E10.10 - Type 1 diabetes mellitus with ketoacidosis without coma Acute on chronic kidney failure Qualifiers: Acute renal failure type: unspecified Chronic kidney disease stage: stage 5, not on chronic dialysis Qualified Code(s): N17.9 - Acute kidney failure, unspecified Patient Disposition: Admitted As Inpatient Interventions: Admission Worksheet (ED) Last Done: 10/24/23 21:29 Discharge Date/Time: 10/24/23 21:30
[2023-10-24 18:57] LABS: Glucose, Whole Blood > 600 mg/dL (60-115)
[2023-10-24] MEDS: 0.9 % Sodium Chloride 1,000 ML 999 ML IV ×2 (18:58→19:20)
[2023-10-24 19:03] LABS: Glucose, Whole Blood > 600 mg/dL (60-115)
[2023-10-24 19:06] LABS: VBG Base Excess -29.3 mmol/L; VBG HCO3 2 mmol/L (22-26); VBG pCO2 13 mmHg; VBG pH 6.85 (7.32-7.43); VBG pO2 175 mmHg
[2023-10-24 19:09] LABS: Blood Urea Nitrogen 86 mg/dL (9-16); Calcium 8.2 mg/dL (8.4-10.2)
[2023-10-24 19:16] LABS: Basophils Absolute Auto 0.1 X10*3/uL (0.0-0.2); Basophils Percent Auto 0.5 % (0-2); Eosinophils Percent Auto 0.1 % (0-4); Hematocrit 29.5 % (42.0-52.0); Hemoglobin 8.3 g/dl (14.0-18.0); Imm Gran Abs Auto 0.28 X10*3/uL (0.00-0.03); Imm Gran Pct Auto 1.9 % (0.0-0.4); Lymphocytes Absolute Auto 0.7 X10*3/uL (1.2-4.9); Lymphocytes Percent Auto 4.8 % (20-40); Mean Corpuscular HGB Conc 28.1 g/dl (31.0-36.0); Mean Corpuscular Hemoglobin 30.6 pg (27.0-33.0); Mean Corpuscular Volume 108.9 fL (80.0-98.0); Mean Platelet Volume 11.7 fL (9.4-12.4); Monocytes Absolute Auto 0.9 X10*3/uL (0.1-1.2); Monocytes Percent Auto 5.9 % (2-11); Neutrophils Absolute Auto 12.8 x10*3/uL (2.0-8.3); Neutrophils Percent Auto 86.8 % (45-73); Platelet Count 255 X10*3/uL (160-400); Red Blood Count 2.71 X10*6/uL (4.60-5.80); Red Cell Distribution Width 13.2 % (11.0-16.0); White Blood Count 14.8 X10*3/uL (4.8-10.8)
[2023-10-24] MEDS: Insulin Regular/NS 100 UNIT/100 ML PLAST..BAG 8 UNIT IVCONT (19:18)
[2023-10-24 19:25] LABS: Alanine Aminotransferase 91 U/L (0-40); Albumin Level 3.7 g/dL (3.5-5.0); Alkaline Phosphatase 134 U/L (39-117); Aspartate Amino Transferase 25 U/L (5-37); Bilirubin Direct 0.2 mg/dL (0.0-0.5); Bilirubin Total 0.3 mg/dL (0.0-1.0); Lipase 36 U/L (8-78); Magnesium 1.9 mg/dL (1.6-2.6); Total Protein 6.3 g/dL (6.5-8.0)
[2023-10-24 19:26] LABS: Lactic Acid 5.8 mmol/L (0.5-2.0)
--- NOTE | 2023-10-24 19:27 | PC.NURSE ---
this rn assumed care of pt, pt resting in stretcher at this time, 18G placed in left AC, 20G placed in right hand. 2 liter normal saline hanging at this time, insulin drip began per aug. pt vss. at bedside. pt normal sinus on tele 80-83bpm.
[2023-10-24 19:28] LABS: Carbon Dioxide < 5 mmol/L (22-29); Chloride 97 mmol/L (96-108); Creatinine Clr Calc Pharmacy 13.8; Estimated Glomerular Filt Rate 8; Potassium 8.3 mmol/L (3.3-5.1); Sodium 126 mmol/L (135-145)
[2023-10-24] MEDS: Sodium Bicarbonate 8.4% 50 MEQ/50 ML SYRINGE IVPUSH (19:33)
[2023-10-24] MEDS: Albuterol Sulfate (0.083%) 2.5 MG/3 ML VIAL.NEB 5 MG INHALE (19:35)
[2023-10-24 19:37] LABS: Venous Blood Gas Refer to POC result
[2023-10-24] MEDS: Calcium Gluconate/NaCl,Iso-Osm 2 GM/100 ML PLAST..BAG IV (19:37)
[2023-10-24] MEDS: 0.9 % Sodium Chloride 500 ML IV (19:37)
--- NOTE | 2023-10-24 19:41 | PC.NURSE ---
respiratory at bedside to preform breathing treatment. bicarb push medciated per aug, calcium dripping per aug.
[2023-10-24 19:43] LABS: Insulin < 2 uU/mL (2-29)
[2023-10-24 19:45] LABS: Glucose Random 1228 mg/dL (60-115)
[2023-10-24] MEDS: Insulin Regular, Human 100 UNIT/ML 3 ML VIAL 10 UNIT IVPUSH (19:50)
--- NOTE | 2023-10-24 20:00 | PC.NURSE ---
per printer slotter feeder SCLEROSCOPE TESTER, verbal order to increase insulin drip to 15u/hr.
--- NOTE | 2023-10-24 20:08 | PC.NURSE ---
temp sensing bhatia catheter placed at this time, pt tolerated well. 50ml of pale yellow urine voided, urine sample obtained and sent to lab.
--- NOTE | 2023-10-24 20:09 | MHC.EDTECH ---
Pt placed on a library monitor,Seizure pads placed on stretcher for precaution. Bloodwork sent to labs for processing. Will repeat POC @2020
[2023-10-24 20:15] LABS: Appearance Urine Cloudy; Color Urine Yellow; Glucose Urine UA >=1000 mg/dL (Negative); Leukocyte Esterase Urine Negative (Negative); Nitrite Urine Negative (Negative); Specific Gravity - Urine 1.025 (1.005-1.025); UMIC TRIGGER UACC YES; Urine Blood Large (3+) (Negative); Urine Ketones Trace mg/dL (Negative); Urine Protein >=1000 (4+) mg/dL (Neg-Trace)
[2023-10-24 20:22] LABS: Beta-Hydroxybutyrate 8.35 mmol/L (0.02-0.27)
--- NOTE | 2023-10-24 20:22 | PC.NURSE ---
pt POC reading hi on the POC machine. per Brenna BARRERA, titrate insulin drip to 20U per hour.
[2023-10-24 20:27] LABS: Glucose, Whole Blood > 600 mg/dL (60-115)
[2023-10-24 20:34] LABS: B Type Natriuretic Peptide 830 pg/mL (<100)
[2023-10-24 20:34] LABS: Bacteria Urine None Seen (None Seen); Hyaline Casts Urine 0-2 /LPF (0-2); RBC Urine >20 /HPF (0-2); WBC Urine 0-5 /HPF (0-5)
[2023-10-24 20:35] LABS: Troponin-I High Sensitivity 88.5 ng/L (<3.5-35.0)
[2023-10-24 20:36] LABS: Influenza A PCR NEGATIVE (Negative); Influenza B PCR NEGATIVE (Negative); Resp Syncy Virus RNA Qual PCR NEGATIVE (Negative); SARS COV2 PCR INHOUSE NEGATIVE (Negative)
--- NOTE | 2023-10-24 20:54 | PHA.MEDREC ---
Pharmacy Consult ? Medication Reconciliation Pharmacy has completed the medication reconciliation. Pt was unable to report medications, family was at bedside and confirmed insulin dosing and had the pt's rx bottles.
[2023-10-24 20:56] LABS: Reflex Lactate? Lactic Acid Added
--- NOTE | 2023-10-24 20:59 | PC.NURSE ---
Brenna BARRERA aware of pt temperature, pt placed on bearhugger at 43ac, goal to achieve core temp of 97.
--- NOTE | 2023-10-24 21:15 | PM.CCHP ---
History of Present Illness Date of Service: 10/24/23 Attending physician on admission: Tom Sesay Chief Complaint: Nausea and vomiting ?The patient is a 53-year-old male with a past medical history of hypertension, diabetes mellitus, neuropathy, chronic kidney disease? (baseline creatinine 5),? hyperlipidemia, anemia, anxiety, depression, who presented to the emergency department with nausea and vomiting.? Patient reported? feeling weak, tired, nausea vomiting and diarrhea starting yesterday.? Reported? due to being sick did not take his insulin,? and his sugars have been high.? ?In the emergency department? patient was hypothermic,? tachypneic,? blood pressure stable. ? p laboratory data was significant for WBC 14.8, serum sodium 126, potassium 8.3, serum bicarb <5, BUN 86, creatinine 7.21, serum glucose 1228,? calcium 8.2, troponin 88.5, BNP 830, ? beta hydroxybutyrate 8.35 and lactic acid 5.8 Venous blood gas:? 6.85/13/175/2 ED COURSE:? Patient received 2 L bolus, 10 units IV push of insulin, calcium gluconate 2 g,? amp of bicarb,? albuterol 5 mg and started on insulin drip.? Patient will be admitted for? hemodynamically monitoring of diabetes ketoacidosis Review of Systems Review of Systems: per HPI Yes all other systems are reviewed and are negative [facility] Past Medical History Medical History (Updated 10/24/23 @ 23:13 by Brenna Rodríguez NP) Metabolic acidosis Right foot ulcer Anxiety History of foot ulcer Obesity (BMI 30-39.9) Depression Rotator cuff arthropathy of left shoulder Vitamin D deficiency Allergic rhinitis Anemia Pure hypercholesterolemia Benign essential hypertension Diabetic polyneuropathy Type 2 diabetes mellitus with diabetic chronic kidney disease Erectile dysfunction Type 2 diabetes mellitus with hyperglycemia, with long-term current use of insulin Type 2 diabetes mellitus with diabetic polyneuropathy Type 2 diabetes mellitus with chronic kidney disease 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 LDL goal <70 Family History Family History Father Lung cancer Mother Hypertension Coronary artery disease CVD (cardiovascular disease) TIA (transient ischemic attack) Sister Diabetes Maternal Uncle Diabetes Other Mental health problem Surgical History Surgical History History of nasal surgery Social History Social History Household Members: Unknown / Unable to assess Housing: Unknown / Unable to assess Do you presently have visiting nurse or other home services: No Alcohol intake: current Alcohol intake frequency: holidays/special occasions only Patient Tobacco Use Status: Never used Tobacco Smoked in Last 30 Days: No e-Cigarette/Vaping Use: Never Used Second Hand Smoke Exposure: Yes Use of substances other than those prescribed or required for medical reasons: No Advance Directives: No Advance Directives Information Provided: No Do you have a plan to hurt others: No Plan Recently lost weight without trying: No How much weight loss: Unsure Eating poorly because of decreased appetite: No Nutrition screen score: 2 Nutrition Risks: Diabetes new onset/Uncontrolled Poor oral hygiene: No service: No Current occupational status: unemployed Cognitive needs: No Hearing needs: No Vision needs: No Meds Allergies Allergy/AdvReac Type Severity Reaction Status Date / Time No Known Allergies Allergy Verified 10/24/23 18:33 Active Medications: Current Medications Heparin Sodium (Porcine) (Heparin Sodium,Porcine 5,000 Unit/Ml Vial) 5,000 unit SUBCUT TID ROSS Insulin Human Regular (Myxredlin) 100 unit in 100 mls @ 8 mls/hr IVCONT .[id number] ROSS; Protocol Last Titration: 10/24/23 20:21 Dose: 20 unit/hr, 20 mls/hr Dextrose (D10) 250 mls @ 750 mls/hr IV Q30M PRN PRN Reason: BG <70 Home Medications ?Medication ?Instructions ?Recorded ?Confirmed ?Last Taken ?Type hydralazine 50 mg tablet 50 mg PO TID 10/24/23 10/24/23 Unknown History oxycodone 5 mg tablet 5 mg PO TID PRN severe pain 10/24/23 Unknown History Physical Exam Vital Signs: Vital Signs: Last Vital Signs Temp 93.9 F L 10/24/23 20:42 Pulse 88 10/24/23 20:42 Resp 24 H 10/24/23 20:42 BP 114/42 L 10/24/23 20:42 Pulse Ox 99 10/24/23 20:42 O2 Del Method Room Air 10/24/23 20:42 BMI result Body Mass Index 34.6 ?General:? Alert oriented x3 no acute distress.? Speaking full sentences.?Following all commands. ?HEENT:? Head is normocephalic, atraumatic, pupils equal round reactive to light accommodation bilaterally.? Extraocular movements appear intact.? Buccal mucosa is dry, Neck is supple ?Cardiac:? Sinus rhythm, Clear S1-S2, no murmurs rubs or gallops. ?Pulmonary:? Lungs diminished at the bases, no wheezes, rales or rhonchi. ?Abdomen:? ?Abdomen soft, diffuse abdominal pain, non-distended. Normal bowel sounds. No pulsatile mass. No hepatosplenomegaly. ?Musculoskeletal:? Moving all 4 extremities upon request a major joints, there is no crepitus or tenderness.? The strength is 5/5 bilaterally and throughout all 4 extremities.? Gait not assessed at this point. ?Neurologic:? cranial nerves 2-12 are grossly intact.? No focal deficits noted.Motor strength as above.?? ?Skin:? Intact, no lesions, edema, erythema, clubbing or cyanosis.? No ulcers. Vascular:? 2+ pulses upper and lower extremities distally.? Results Labs 10/25/23 05:52 10/25/23 04:42 Labs: Laboratory Results - last 24 hr 10/24/23 10/24/23 10/24/23 18:19 18:28 18:43 MCV 108.9 H MCH 30.6 MCHC 28.1 L RDW 13.2 Plt Count 255 D MPV 11.7 Immature Gran % (Auto) 1.9 H Neut % (Auto) 86.8 H Lymph % (Auto) 4.8 L [place] % (Auto) 5.9 Eos % (Auto) 0.1 Baso % (Auto) 0.5 Lymph # (Auto) 0.7 L [place] # (Auto) 0.9 Eos # (Auto) 0.0 Baso # (Auto) 0.1 Abs Immat Gran (auto) 0.28 H Absolute Neuts (auto) 12.8 H Absolute Nucleated RBC 0.000 Nucleated RBC % (auto) 0.0 VBG pH VBG pCO2 VBG pO2 VBG HCO3 VBG O2 Saturation VBG Base Excess Anion Gap TNP Estim Creat Clear Calc 13.8 Estimated GFR 8 POC Glucose > 600 H* > 600 H* Random Glucose 1228 H* Insulin Level Lactic Acid Calcium 8.2 L D Magnesium Total Bilirubin Direct Bilirubin AST ALT Alkaline Phosphatase Troponin I High Sens 88.5 H B-Natriuretic Peptide 830 H Total Protein Albumin Lipase Beta-Hydroxybutyrate Urine Color Urine Appearance Urine pH Ur Specific [place] Urine Protein Urine Glucose (UA) Urine Ketones Urine Blood Urine Nitrite Ur Leukocyte Esterase Urine RBC Urine WBC Ur Squamous Epith Cells Urine Bacteria Hyaline Casts Influenza Type A (PCR) Influenza Type B (PCR) RSV RNA Qual (PCR) SARS-CoV-2 RNA (RT-PCR) 10/24/23 10/24/23 10/24/23 18:51 18:57 18:58 MCV MCH MCHC RDW Plt Count MPV Immature Gran % (Auto) Neut % (Auto) Lymph % (Auto) [place] % (Auto) Eos % (Auto) Baso % (Auto) Lymph # (Auto) [place] # (Auto) Eos # (Auto) Baso # (Auto) Abs Immat Gran (auto) Absolute Neuts (auto) Absolute Nucleated RBC Nucleated RBC % (auto) VBG pH 6.85 L* VBG pCO2 13 VBG pO2 175 VBG HCO3 2 L VBG O2 Saturation 99.0 VBG Base Excess -29.3 Anion Gap Estim Creat Clear Calc Estimated GFR POC Glucose > 600 H* Random Glucose Insulin Level Lactic Acid 5.8 H* Calcium Magnesium Total Bilirubin Direct Bilirubin AST ALT Alkaline Phosphatase Troponin I High Sens B-Natriuretic Peptide Total Protein Albumin Lipase Beta-Hydroxybutyrate Urine Color Urine Appearance Urine pH Ur Specific [place] Urine Protein Urine Glucose (UA) Urine Ketones Urine Blood Urine Nitrite Ur Leukocyte Esterase Urine RBC Urine WBC Ur Squamous Epith Cells Urine Bacteria Hyaline Casts Influenza Type A (PCR) Influenza Type B (PCR) RSV RNA Qual (PCR) SARS-CoV-2 RNA (RT-PCR) 10/24/23 10/24/23 10/24/23 19:21 19:25 20:07 MCV MCH MCHC RDW Plt Count MPV Immature Gran % (Auto) Neut % (Auto) Lymph % (Auto) [place] % (Auto) Eos % (Auto) Baso % (Auto) Lymph # (Auto) [place] # (Auto) Eos # (Auto) Baso # (Auto) Abs Immat Gran (auto) Absolute Neuts (auto) Absolute Nucleated RBC Nucleated RBC % (auto) VBG pH VBG pCO2 VBG pO2 VBG HCO3 VBG O2 Saturation VBG Base Excess Anion Gap Estim Creat Clear Calc Estimated GFR POC Glucose Random Glucose Insulin Level < 2 L Lactic Acid Calcium Magnesium 1.9 Total Bilirubin 0.3 Direct Bilirubin 0.2 AST 25 ALT 91 H Alkaline Phosphatase 134 H Troponin I High Sens B-Natriuretic Peptide Total Protein 6.3 L Albumin 3.7 Lipase 36 Beta-Hydroxybutyrate 8.35 H Urine Color Yellow Urine Appearance Cloudy Urine pH 5.0 Ur Specific [place] 1.025 Urine Protein >=1000 (4+) H Urine Glucose (UA) >=1000 H Urine Ketones Trace Urine Blood Large (3+) H Urine Nitrite Negative Ur Leukocyte Esterase Negative Urine RBC >20 H Urine WBC 0-5 Ur Squamous Epith Cells 6-10 Urine Bacteria None Seen Hyaline Casts 0-2 Influenza Type A (PCR) NEGATIVE Influenza Type B (PCR) NEGATIVE RSV RNA Qual (PCR) NEGATIVE SARS-CoV-2 RNA (RT-PCR) NEGATIVE 10/24/23 20:20 MCV MCH MCHC RDW Plt Count MPV Immature Gran % (Auto) Neut % (Auto) Lymph % (Auto) [place] % (Auto) Eos % (Auto) Baso % (Auto) Lymph # (Auto) [place] # (Auto) Eos # (Auto) Baso # (Auto) Abs Immat Gran (auto) Absolute Neuts (auto) Absolute Nucleated RBC Nucleated RBC % (auto) VBG pH VBG pCO2 VBG pO2 VBG HCO3 VBG O2 Saturation VBG Base Excess Anion Gap Estim Creat Clear Calc Estimated GFR POC Glucose > 600 H* Random Glucose Insulin Level Lactic Acid Calcium Magnesium Total Bilirubin Direct Bilirubin AST ALT Alkaline Phosphatase Troponin I High Sens B-Natriuretic Peptide Total Protein Albumin Lipase Beta-Hydroxybutyrate Urine Color Urine Appearance Urine pH Ur Specific [place] Urine Protein Urine Glucose (UA) Urine Ketones Urine Blood Urine Nitrite Ur Leukocyte Esterase Urine RBC Urine WBC Ur Squamous Epith Cells Urine Bacteria Hyaline Casts Influenza Type A (PCR) Influenza Type B (PCR) RSV RNA Qual (PCR) SARS-CoV-2 RNA (RT-PCR) Imaging Radiologist's Impressions: Impressions Chest X-Ray 10/24/23 19:03 IMPRESSION: No evidence of acute disease. Assessment and Plan (1) Acute hyperkalemia: Status: Acute (2) DKA (diabetic ketoacidosis): Qualifiers: Diabetes mellitus complication detail: without coma Diabetes mellitus type: type 1 Qualified Code(s): E10.10 - Type 1 diabetes mellitus with ketoacidosis without coma Status: Acute (3) Metabolic acidosis: Status: Acute (4) Nausea vomiting and diarrhea: Status: Acute (5) Acute on chronic renal failure: Status: Acute (6) NATALIA (acute kidney injury): Status: Acute (7) Hypotension: Status: Acute (8) Renal failure: Status: Acute Plan Plan: Neuro:? No acute issues. Cardiac:? ??Elevated lactic:? elevated lactic likely related to DKA and? severe renal failure.? No evidence of severe infection ? Hypotension:? due to renal failure no evidence of severe septic shock.?Wean off pressors as tolerated Pulmonary:? ? acute issues Renal:? NATALIA/ Renal failure- ? ? with anuria,? patient initial ? blood gas? 6.85/13/175/2 repeat after 3 hours 6.88/ 10/143/2.? Hyperkalemic with potassium of 8.3, ? BUN 86, creatinine 7.21. ? It seems that his baseline creatinine is around 5 in the last few months. Received 2 L in the emergency department,? EKG with no peaked T-waves.? renal , Dr Ulloa,? consulted? and agrees with emergent dialysis.? Dialysis catheter placed, will receive emergent dialysis ? Electrolyte abnormalities:? hyperkalemia, hyponatremia,? all likely related to? DKA.? EKG with no peaked T-waves.? Should? improve after dialysis Endo:? Diabetic ketoacidosis,? patient reports? feeling sick since yesterday? and not taking his insulin.? Likely the cause of acute DKA.? continue insulin drip.? Follow protocol GI:?? Abdominal pain:? patient did report abdominal pain, and nausea and vomiting? will obtain ABD/Pelvis CT? ID:? Elevated white count-? likely related to DKA,? ? no evidence of acute infections at this time Heme/Onc: ? hypothermia:? initially patient temperature normal,? but later dropped to 93.9.? Will obtain TSH? Psych:? No acute issues. Miscellaneous:? No acute issues. Prophylaxis: subcu heparin? Diet:NPO? CODE: FULL ? Critical care time: x 90 min?
--- NOTE | 2023-10-24 21:28 | PC.NURSE ---
pt transported to the ICU, bedside report given to Rosemary GUADALUPE.
[2023-10-24 21:29] LABS: Glucose, Whole Blood > 600 mg/dL (60-115)
[2023-10-24] MEDS: Heparin Sodium,Porcine 5,000 UNIT/ML VIAL 5000 UNIT SUBCUT (21:39)
[2023-10-24 21:51] LABS: VBG Base Excess -29.1 mmol/L; VBG HCO3 2 mmol/L (22-26); VBG pCO2 10 mmHg; VBG pH 6.88 (7.32-7.43); VBG pO2 143 mmHg
[2023-10-24 21:52] LABS: Venous Blood Gas Refer to POC result
[2023-10-24] MEDS: Sodium Bicarbonate 8.4% 50 MEQ/50 ML VIAL IVPUSH ×2 (22:01)
[2023-10-24 22:13] LABS: ~Lactic Acid-LAB USE ONLY 6.2 mmol/L (0.5-2.0)
[2023-10-24 22:14] LABS: Creatinine Clr Calc Pharmacy 13.6; Estimated Glomerular Filt Rate 8; Phosphorus 8.4 mg/dL (2.7-4.5)
[2023-10-24 22:15] LABS: Blood Urea Nitrogen 84 mg/dL (9-16); Carbon Dioxide < 5 mmol/L (22-29); Chloride 104 mmol/L (96-108); Magnesium 1.9 mg/dL (1.6-2.6); Potassium 6.1 mmol/L (3.3-5.1); Sodium 132 mmol/L (135-145)
[2023-10-24 22:24] LABS: Thyroid Stimulating Hormone 1.98 uIU/mL (0.32-4.0)
[2023-10-24 22:26] LABS: Glucose Random 1065 mg/dL (60-115)
[2023-10-24] MEDS: Sodium Bicarbonate 8.4% 150 MEQ in Dextrose 5 % 850 ML 100 MEQ IV (22:35)
[2023-10-24] MEDS: Insulin Regular/NS 100 UNIT/100 ML PLAST..BAG 30 UNIT IVCONT (22:42)
[2023-10-24] MEDS: Midazolam HCl/PF 2 MG/2 ML VIAL IVPUSH (22:45)
[2023-10-24] MEDS: vancomycin/NS 2,000 MG/500 ML PLAST..BAG 250 MG IV (22:58)
--- NOTE | 2023-10-24 23:14 | W.PM.CCHP ---
Procedures Date of Service Date of Service: 10/24/23 Central Line Placement Right IJ: Central Line Comments: Patient needs emergency dialysis, consent obtained from patient's sister, Nikki Castaneda over the phone. .Right internal jugular dialysis l venous catheter placed in usual sterile conditions under ultrasound guidance for appropriate vascular access without immediate complications. Central line position verified with Chest XRAY. Consent for Procedure: Elective - informed consent obtained (Sister Nikki ) Time out performed: Yes Sterile Technique Used: Yes Patient placed on monitor/pulse ox: Yes MD prep: mask, gown and gloves Central line prep: Chlorhexidine scrub Local anesthesia used: other anesthetic (versed 2 ) Ultrasound used for placement: Yes Post procedure: sutured in place, good blood return, all ports aspirated, flushed, capped and sterile dressing applied Post procedure x-ray: tip of catheter in good position and no pneumothorax seen Patient tolerated procedure: well and no complications Complications: none
[2023-10-24 23:35] LABS: Glucose, Whole Blood > 600 mg/dL (60-115)
[2023-10-24 23:43] LABS: Reflex Lactate? 2 Y
[2023-10-25] VITALS (24 sets, daily range): BP systolic 112–165; BP diastolic 43–72; PULSE 70–82; RESP 15–28; TEMP 35.5–38.2; O2SAT 88–99; BMI 35.5
[2023-10-25 00:11] LABS: T4 Thyroxine 7.2 ug/dL (4.5-12.0)
[2023-10-25] MEDS: Norepinephrine Bitartrate/D5W 8 MG/250 ML PLAST..BAG 3.87 MG IV (00:21)
[2023-10-25 00:38] LABS: VBG HCO3 10 mmol/L (22-26); VBG pCO2 27 mmHg; VBG pH 7.19 (7.32-7.43); VBG pO2 42 mmHg
[2023-10-25 00:57] LABS: Anion Gap 27 (12-20); Blood Urea Nitrogen 65 mg/dL (9-16); Calcium 7.8 mg/dL (8.4-10.2); Carbon Dioxide 9 mmol/L (22-29); Chloride 104 mmol/L (96-108); Creatinine Clr Calc Pharmacy 17.2; Estimated Glomerular Filt Rate 10; Glucose Random 764 mg/dL (60-115); Potassium 3.4 mmol/L (3.3-5.1); Sodium 137 mmol/L (135-145)
[2023-10-25 00:58] LABS: Venous Blood Gas Refer to POC result
[2023-10-25] MEDS: Piperacillin Sodium/Tazobactam 2.25 GM in 0.9 % Sodium Chloride 50 ML IV ×4 (01:14→17:10)
[2023-10-25] MEDS: Insulin Regular/NS 100 UNIT/100 ML PLAST..BAG 20 UNIT IVCONT (01:36)
[2023-10-25] MEDS: Potassium Chloride/H20 40 MEQ/100 ML PIGGYBACK 100 MEQ IV ×2 (01:37→02:50)
[2023-10-25 01:47] LABS: Glucose, Whole Blood 571 mg/dL (60-115)
[2023-10-25] MEDS: Calcium Gluconate/NaCl,Iso-Osm 2 GM/100 ML PLAST..BAG IV (01:49)
[2023-10-25 02:35] LABS: Glucose, Whole Blood 464 mg/dL (60-115)
[2023-10-25 03:31] LABS: Glucose, Whole Blood 422 mg/dL (60-115)
[2023-10-25 04:31] LABS: Glucose, Whole Blood 395 mg/dL (60-115)
[2023-10-25 04:49] LABS: VBG Base Excess 0.3 mmol/L; VBG HCO3 23 mmol/L (22-26); VBG pCO2 31 mmHg; VBG pH 7.47 (7.32-7.43); VBG pO2 46 mmHg
[2023-10-25 05:01] LABS: MANUAL DIFF FLAG NO
[2023-10-25 05:04] LABS: Basophils Percent Auto 0.2 % (0-2); Eosinophils Percent Auto 0.2 % (0-4); Imm Gran Abs Auto 0.08 X10*3/uL (0.00-0.03); Imm Gran Pct Auto 0.8 % (0.0-0.4); Lymphocytes Absolute Auto 0.8 X10*3/uL (1.2-4.9); Lymphocytes Percent Auto 8.1 % (20-40); Mean Corpuscular HGB Conc 33.8 g/dl (31.0-36.0); Mean Corpuscular Hemoglobin 29.9 pg (27.0-33.0); Mean Corpuscular Volume 88.5 fL (80.0-98.0); Mean Platelet Volume 11.1 fL (9.4-12.4); Monocytes Absolute Auto 0.9 X10*3/uL (0.1-1.2); Monocytes Percent Auto 9.2 % (2-11); Neutrophils Absolute Auto 8.1 x10*3/uL (2.0-8.3); Neutrophils Percent Auto 81.5 % (45-73); Platelet Count 106 X10*3/uL (160-400); Red Blood Count 2.34 X10*6/uL (4.60-5.80); Red Cell Distribution Width 12.7 % (11.0-16.0)
[2023-10-25 05:07] LABS: Hematocrit 20.7 % (42.0-52.0)
[2023-10-25 05:25] LABS: Albumin Level 3.3 g/dL (3.5-5.0); Anion Gap 17 (12-20); Blood Urea Nitrogen 49 mg/dL (9-16); Calcium 8.1 mg/dL (8.4-10.2); Carbon Dioxide 21 mmol/L (22-29); Chloride 104 mmol/L (96-108); Creatinine Clr Calc Pharmacy 21.8; Estimated Glomerular Filt Rate 14; Glucose Random 440 mg/dL (60-115); Magnesium 1.5 mg/dL (1.6-2.6); Phosphorus 1.4 mg/dL (2.7-4.5); Potassium 3.1 mmol/L (3.3-5.1); Sodium 139 mmol/L (135-145)
[2023-10-25 05:29] LABS: Glucose, Whole Blood 373 mg/dL (60-115)
[2023-10-25 05:38] LABS: Venous Blood Gas Refer to POC result
[2023-10-25] MEDS: Morphine Sulfate 2 MG/ML CARTRIDGE 1 MG IVPUSH (05:45)
[2023-10-25] MEDS: Potassium Phosphate/NS 15 MMOL/250 ML PLAST..BAG 62.5 MMOL IV ×2 (05:47→10:06)
[2023-10-25 05:57] LABS: MANUAL DIFF FLAG NO
--- NOTE | 2023-10-25 06:22 | PC.NURSE ---
pt to [facility] from ED via [facility] but drowsy, family able to provide some information for admission, Sr on tele, stats 100% on RA, no UO via bhat[facility] [employer] aware, hypothermic on arrival bear hugger placed, bicarb drip started dialysis cath placed by etymology professor using sterile technique, Family contacted for consent . Emergent dialysis session bedside pt requiring Levo for a short amount of time, see emar, no fluid taken off, insulin gtt going, see emar for titration. tele sitter placed. temp improved bear hugger off at this time. morphine for pain, resting eyes closed in bed.
[2023-10-25 06:25] LABS: Glucose, Whole Blood 379 mg/dL (60-115)
[2023-10-25 06:37] LABS: Basophils Percent Auto 0.2 % (0-2); Hematocrit 21.5 % (42.0-52.0); Hemoglobin 7.5 g/dl (14.0-18.0); Imm Gran Abs Auto 0.06 X10*3/uL (0.00-0.03); Imm Gran Pct Auto 0.6 % (0.0-0.4); Lymphocytes Absolute Auto 0.8 X10*3/uL (1.2-4.9); Lymphocytes Percent Auto 8.4 % (20-40); Mean Corpuscular HGB Conc 34.9 g/dl (31.0-36.0); Mean Corpuscular Hemoglobin 30.5 pg (27.0-33.0); Mean Corpuscular Volume 87.4 fL (80.0-98.0); Mean Platelet Volume 11.1 fL (9.4-12.4); Monocytes Absolute Auto 1.1 X10*3/uL (0.1-1.2); Monocytes Percent Auto 11.4 % (2-11); Neutrophils Absolute Auto 7.5 x10*3/uL (2.0-8.3); Neutrophils Percent Auto 79.4 % (45-73); Platelet Count 116 X10*3/uL (160-400); Red Blood Count 2.46 X10*6/uL (4.60-5.80); Red Cell Distribution Width 12.5 % (11.0-16.0); White Blood Count 9.5 X10*3/uL (4.8-10.8)
[2023-10-25 07:27] LABS: Glucose, Whole Blood 359 mg/dL (60-115)
[2023-10-25] MEDS: Insulin Regular/NS 100 UNIT/100 ML PLAST..BAG 18 UNIT IVCONT (08:12)
[2023-10-25 08:14] LABS: Glucose, Whole Blood 266 mg/dL (60-115)
[2023-10-25] MEDS: Albumin Human 25 % 100 ML IV ×3 (08:49→20:18)
[2023-10-25] MEDS: Magnesium Sulfate/D5W 1 GM/100 ML PIGGYBACK IV (08:54)
[2023-10-25] MEDS: Heparin Sodium,Porcine 5,000 UNIT/ML VIAL 5000 UNIT SUBCUT ×3 (09:14→20:18)
[2023-10-25] MEDS: Insulin Glargine,Hum.rec.anlog 100 UNIT/ML 10 ML VIAL 40 UNIT SUBCUT (09:23)
--- NOTE | 2023-10-25 09:40 | PM.EVENT ---
Event Note Date of Service: 10/28/23 Event Note: Howard is well known to me. Admitted with DKA and severe Hyperkalemia with NATALIA on CKD Underwent emergency dialysis due to severe hyperkalemia and acidosis Today, CO2 i better K is rather low Watch urine output Concur with current management Shall follow with team Time Spent With Patient Time: Total time managing care of this patient today ____ minutes.
[2023-10-25 09:43] LABS: Glucose, Whole Blood 242 mg/dL (60-115)
[2023-10-25 11:12] LABS: Glucose, Whole Blood 161 mg/dL (60-115)
--- NOTE | 2023-10-25 11:19 | PM.CCPN ---
Subjective Subjective Date of Service: 10/25/23 Interval History: 53-year-old gentleman with underlying hypertension, diabetes mellitus with neuropathy, chronic kidney disease stage 5, anxiety, depression admitted on 10/24/2023 with acute on chronic renal failure, severe metabolic acidosis with hyperkalemia, and diabetic ketoacidosis requiring insulin drip and initiation of hemodialysis. Critical Care Time (minutes): 0 Physical Exam Vital Signs: Vital Signs: Last Vital Signs Temp 99.3 F 10/25/23 11:00 Pulse 77 10/25/23 11:00 Resp 18 10/25/23 11:00 BP 132/56 L 10/25/23 11:00 Pulse Ox 97 10/25/23 11:00 O2 Del Method Room Air 10/25/23 11:00 BMI result Body Mass Index 35.5 Const: General: no acute distress, alert and awake Eyes: Sclerae: sclerae normal EOM: EOMs intact bilaterally Neck: Neck: Yes no lymphadenopathy, Yes trachea midline and Yes supple Resp: Effort & Inspection: normal respiratory effort and no respiratory distress Auscultation: clear to auscultation bilaterally Cardio: Rate: regular rate Rhythm: regular rhythm Heart sounds: no gallops, no murmurs and no rubs GI: Palpation (GI): Soft to palpation and Other GI palpation findings present ( Nontender) Auscultation: normal bowel sounds Extrem: General: No clubbing, No cyanosis and Yes edema (1+ bilateral) Objective Data Labs 10/25/23 05:52 10/25/23 04:42 Labs: Laboratory Results - last 24 hr 10/24/23 10/24/23 10/24/23 18:19 18:28 18:43 WBC 14.8 H RBC 2.71 L Hgb 8.3 L Hct 29.5 L MCV 108.9 H MCH 30.6 MCHC 28.1 L RDW 13.2 Plt Count 255 D MPV 11.7 Immature Gran % (Auto) 1.9 H Neut % (Auto) 86.8 H Lymph % (Auto) 4.8 L [place] % (Auto) 5.9 Eos % (Auto) 0.1 Baso % (Auto) 0.5 Lymph # (Auto) 0.7 L [place] # (Auto) 0.9 Eos # (Auto) 0.0 Baso # (Auto) 0.1 Abs Immat Gran (auto) 0.28 H Absolute Neuts (auto) 12.8 H Absolute Nucleated RBC 0.000 Nucleated RBC % (auto) 0.0 Hold Purple Top VBG pH VBG pCO2 VBG pO2 VBG HCO3 VBG O2 Saturation VBG Base Excess Sodium 126 L Potassium 8.3 H* D Chloride 97 Carbon Dioxide < 5 L* D Anion Gap TNP BUN 86 H Creatinine 7.21 H* Estim Creat Clear Calc 13.8 Estimated GFR 8 POC Glucose > 600 H* > 600 H* Random Glucose 1228 H* Insulin Level Lactic Acid Lactic Acid F/U @ 2Hr Lactic Acid F/U @ 4Hr Calcium 8.2 L D Phosphorus Magnesium Total Bilirubin Direct Bilirubin AST ALT Alkaline Phosphatase Troponin I High Sens 88.5 H B-Natriuretic Peptide 830 H Total Protein Albumin Lipase Beta-Hydroxybutyrate TSH Thyroxine (T4) Hold Yellow Top Urine Color Urine Appearance Urine pH Ur Specific [place] Urine Protein Urine Glucose (UA) Urine Ketones Urine Blood Urine Nitrite Ur Leukocyte Esterase Urine RBC Urine WBC Ur Squamous Epith Cells Urine Bacteria Hyaline Casts Influenza Type A (PCR) Influenza Type B (PCR) RSV RNA Qual (PCR) SARS-CoV-2 RNA (RT-PCR) 10/24/23 10/24/23 10/24/23 18:51 18:57 18:58 WBC RBC Hgb Hct MCV MCH MCHC RDW Plt Count MPV Immature Gran % (Auto) Neut % (Auto) Lymph % (Auto) [place] % (Auto) Eos % (Auto) Baso % (Auto) Lymph # (Auto) [place] # (Auto) Eos # (Auto) Baso # (Auto) Abs Immat Gran (auto) Absolute Neuts (auto) Absolute Nucleated RBC Nucleated RBC % (auto) Hold Purple Top VBG pH 6.85 L* VBG pCO2 13 VBG pO2 175 VBG HCO3 2 L VBG O2 Saturation 99.0 VBG Base Excess -29.3 Sodium Potassium Chloride Carbon Dioxide Anion Gap BUN Creatinine Estim Creat Clear Calc Estimated GFR POC Glucose > 600 H* Random Glucose Insulin Level Lactic Acid 5.8 H* Lactic Acid F/U @ 2Hr Lactic Acid F/U @ 4Hr Calcium Phosphorus Magnesium Total Bilirubin Direct Bilirubin AST ALT Alkaline Phosphatase Troponin I High Sens B-Natriuretic Peptide Total Protein Albumin Lipase Beta-Hydroxybutyrate TSH Thyroxine (T4) Hold Yellow Top Urine Color Urine Appearance Urine pH Ur Specific [place] Urine Protein Urine Glucose (UA) Urine Ketones Urine Blood Urine Nitrite Ur Leukocyte Esterase Urine RBC Urine WBC Ur Squamous Epith Cells Urine Bacteria Hyaline Casts Influenza Type A (PCR) Influenza Type B (PCR) RSV RNA Qual (PCR) SARS-CoV-2 RNA (RT-PCR) 10/24/23 10/24/23 10/24/23 19:21 19:25 20:07 WBC RBC Hgb Hct MCV MCH MCHC RDW Plt Count MPV Immature Gran % (Auto) Neut % (Auto) Lymph % (Auto) [place] % (Auto) Eos % (Auto) Baso % (Auto) Lymph # (Auto) [place] # (Auto) Eos # (Auto) Baso # (Auto) Abs Immat Gran (auto) Absolute Neuts (auto) Absolute Nucleated RBC Nucleated RBC % (auto) Hold Purple Top VBG pH VBG pCO2 VBG pO2 VBG HCO3 VBG O2 Saturation VBG Base Excess Sodium Potassium Chloride Carbon Dioxide Anion Gap BUN Creatinine Estim Creat Clear Calc Estimated GFR POC Glucose Random Glucose Insulin Level < 2 L Lactic Acid Lactic Acid F/U @ 2Hr Lactic Acid F/U @ 4Hr Calcium Phosphorus Magnesium 1.9 Total Bilirubin 0.3 Direct Bilirubin 0.2 AST 25 ALT 91 H Alkaline Phosphatase 134 H Troponin I High Sens B-Natriuretic Peptide Total Protein 6.3 L Albumin 3.7 Lipase 36 Beta-Hydroxybutyrate 8.35 H TSH Thyroxine (T4) Hold Yellow Top Urine Color Yellow Urine Appearance Cloudy Urine pH 5.0 Ur Specific [place] 1.025 Urine Protein >=1000 (4+) H Urine Glucose (UA) >=1000 H Urine Ketones Trace Urine Blood Large (3+) H Urine Nitrite Negative Ur Leukocyte Esterase Negative Urine RBC >20 H Urine WBC 0-5 Ur Squamous Epith Cells 6-10 Urine Bacteria None Seen Hyaline Casts 0-2 Influenza Type A (PCR) NEGATIVE Influenza Type B (PCR) NEGATIVE RSV RNA Qual (PCR) NEGATIVE SARS-CoV-2 RNA (RT-PCR) NEGATIVE 10/24/23 10/24/23 10/24/23 20:20 21:26 21:37 WBC RBC Hgb Hct MCV MCH MCHC RDW Plt Count MPV Immature Gran % (Auto) Neut % (Auto) Lymph % (Auto) [place] % (Auto) Eos % (Auto) Baso % (Auto) Lymph # (Auto) [place] # (Auto) Eos # (Auto) Baso # (Auto) Abs Immat Gran (auto) Absolute Neuts (auto) Absolute Nucleated RBC Nucleated RBC % (auto) Hold Purple Top VBG pH VBG pCO2 VBG pO2 VBG HCO3 VBG O2 Saturation VBG Base Excess Sodium Potassium Chloride Carbon Dioxide Anion Gap BUN Creatinine Estim Creat Clear Calc Estimated GFR POC Glucose > 600 H* > 600 H* Random Glucose Insulin Level Lactic Acid Lactic Acid F/U @ 2Hr 6.2 H* Lactic Acid F/U @ 4Hr Calcium Phosphorus Magnesium Total Bilirubin Direct Bilirubin AST ALT Alkaline Phosphatase Troponin I High Sens B-Natriuretic Peptide Total Protein Albumin Lipase Beta-Hydroxybutyrate TSH Thyroxine (T4) Hold Yellow Top Urine Color Urine Appearance Urine pH Ur Specific [place] Urine Protein Urine Glucose (UA) Urine Ketones Urine Blood Urine Nitrite Ur Leukocyte Esterase Urine RBC Urine WBC Ur Squamous Epith Cells Urine Bacteria Hyaline Casts Influenza Type A (PCR) Influenza Type B (PCR) RSV RNA Qual (PCR) SARS-CoV-2 RNA (RT-PCR) 10/24/23 10/24/23 10/24/23 21:38 21:42 23:32 WBC RBC Hgb Hct MCV MCH MCHC RDW Plt Count MPV Immature Gran % (Auto) Neut % (Auto) Lymph % (Auto) [place] % (Auto) Eos % (Auto) Baso % (Auto) Lymph # (Auto) [place] # (Auto) Eos # (Auto) Baso # (Auto) Abs Immat Gran (auto) Absolute Neuts (auto) Absolute Nucleated RBC Nucleated RBC % (auto) Hold Purple Top SEE NOTE VBG pH 6.88 L* VBG pCO2 10 VBG pO2 143 VBG HCO3 2 L VBG O2 Saturation 99.0 VBG Base Excess -29.1 Sodium 132 L Potassium 6.1 H* D Chloride 104 Carbon Dioxide < 5 L* Anion Gap TNP BUN 84 H Creatinine 7.29 H* Estim Creat Clear Calc 13.6 Estimated GFR 8 POC Glucose > 600 H* Random Glucose 1065 H* Insulin Level Lactic Acid Lactic Acid F/U @ 2Hr Lactic Acid F/U @ 4Hr Calcium 8.0 L Phosphorus 8.4 H Magnesium 1.9 Total Bilirubin Direct Bilirubin AST ALT Alkaline Phosphatase Troponin I High Sens B-Natriuretic Peptide Total Protein Albumin Lipase Beta-Hydroxybutyrate TSH 1.98 Thyroxine (T4) 7.2 Hold Yellow Top See Note Urine Color Urine Appearance Urine pH Ur Specific [place] Urine Protein Urine Glucose (UA) Urine Ketones Urine Blood Urine Nitrite Ur Leukocyte Esterase Urine RBC Urine WBC Ur Squamous Epith Cells Urine Bacteria Hyaline Casts Influenza Type A (PCR) Influenza Type B (PCR) RSV RNA Qual (PCR) SARS-CoV-2 RNA (RT-PCR) 10/24/23 10/25/23 10/25/23 23:50 00:29 00:30 WBC RBC Hgb Hct MCV MCH MCHC RDW Plt Count MPV Immature Gran % (Auto) Neut % (Auto) Lymph % (Auto) [place] % (Auto) Eos % (Auto) Baso % (Auto) Lymph # (Auto) [place] # (Auto) Eos # (Auto) Baso # (Auto) Abs Immat Gran (auto) Absolute Neuts (auto) Absolute Nucleated RBC Nucleated RBC % (auto) Hold Purple Top VBG pH 7.19 L* VBG pCO2 27 VBG pO2 42 VBG HCO3 10 L VBG O2 Saturation 79.0 VBG Base Excess -16.0 Sodium 137 Potassium 3.4 D Chloride 104 Carbon Dioxide 9 L* D Anion Gap 27 H BUN 65 H Creatinine 5.76 H* Estim Creat Clear Calc 17.2 Estimated GFR 10 POC Glucose Random Glucose 764 H* Insulin Level Lactic Acid Lactic Acid F/U @ 2Hr Lactic Acid F/U @ 4Hr 4.0 H* Calcium 7.8 L Phosphorus Magnesium Total Bilirubin Direct Bilirubin AST ALT Alkaline Phosphatase Troponin I High Sens B-Natriuretic Peptide Total Protein Albumin Lipase Beta-Hydroxybutyrate TSH Thyroxine (T4) Hold Yellow Top Urine Color Urine Appearance Urine pH Ur Specific [place] Urine Protein Urine Glucose (UA) Urine Ketones Urine Blood Urine Nitrite Ur Leukocyte Esterase Urine RBC Urine WBC Ur Squamous Epith Cells Urine Bacteria Hyaline Casts Influenza Type A (PCR) Influenza Type B (PCR) RSV RNA Qual (PCR) SARS-CoV-2 RNA (RT-PCR) 10/25/23 10/25/23 10/25/23 01:28 02:31 03:27 WBC RBC Hgb Hct MCV MCH MCHC RDW Plt Count MPV Immature Gran % (Auto) Neut % (Auto) Lymph % (Auto) [place] % (Auto) Eos % (Auto) Baso % (Auto) Lymph # (Auto) [place] # (Auto) Eos # (Auto) Baso # (Auto) Abs Immat Gran (auto) Absolute Neuts (auto) Absolute Nucleated RBC Nucleated RBC % (auto) Hold Purple Top VBG pH VBG pCO2 VBG pO2 VBG HCO3 VBG O2 Saturation VBG Base Excess Sodium Potassium Chloride Carbon Dioxide Anion Gap BUN Creatinine Estim Creat Clear Calc Estimated GFR POC Glucose 571 H* 464 H* 422 H* Random Glucose Insulin Level Lactic Acid Lactic Acid F/U @ 2Hr Lactic Acid F/U @ 4Hr Calcium Phosphorus Magnesium Total Bilirubin Direct Bilirubin AST ALT Alkaline Phosphatase Troponin I High Sens B-Natriuretic Peptide Total Protein Albumin Lipase Beta-Hydroxybutyrate TSH Thyroxine (T4) Hold Yellow Top Urine Color Urine Appearance Urine pH Ur Specific [place] Urine Protein Urine Glucose (UA) Urine Ketones Urine Blood Urine Nitrite Ur Leukocyte Esterase Urine RBC Urine WBC Ur Squamous Epith Cells Urine Bacteria Hyaline Casts Influenza Type A (PCR) Influenza Type B (PCR) RSV RNA Qual (PCR) SARS-CoV-2 RNA (RT-PCR) 10/25/23 10/25/23 10/25/23 04:28 04:41 04:42 WBC 10.0 RBC 2.34 L Hgb 7.0 L* Hct 20.7 L* D MCV 88.5 D MCH 29.9 MCHC 33.8 RDW 12.7 Plt Count 106 L D MPV 11.1 Immature Gran % (Auto) 0.8 H Neut % (Auto) 81.5 H Lymph % (Auto) 8.1 L [place] % (Auto) 9.2 Eos % (Auto) 0.2 Baso % (Auto) 0.2 Lymph # (Auto) 0.8 L [place] # (Auto) 0.9 Eos # (Auto) 0.0 Baso # (Auto) 0.0 Abs Immat Gran (auto) 0.08 H Absolute Neuts (auto) 8.1 Absolute Nucleated RBC 0.000 Nucleated RBC % (auto) 0.0 Hold Purple Top VBG pH 7.47 H VBG pCO2 31 VBG pO2 46 VBG HCO3 23 VBG O2 Saturation 89.0 VBG Base Excess 0.3 Sodium 139 Potassium 3.1 L Chloride 104 Carbon Dioxide 21 L Anion Gap 17 BUN 49 H Creatinine 4.55 H* Estim Creat Clear Calc 21.8 Estimated GFR 14 POC Glucose 395 H* Random Glucose 440 H* Insulin Level Lactic Acid Lactic Acid F/U @ 2Hr Lactic Acid F/U @ 4Hr Calcium 8.1 L Phosphorus 1.4 L Magnesium 1.5 L Total Bilirubin Direct Bilirubin AST ALT Alkaline Phosphatase Troponin I High Sens B-Natriuretic Peptide Total Protein Albumin 3.3 L Lipase Beta-Hydroxybutyrate TSH Thyroxine (T4) Hold Yellow Top Urine Color Urine Appearance Urine pH Ur Specific [place] Urine Protein Urine Glucose (UA) Urine Ketones Urine Blood Urine Nitrite Ur Leukocyte Esterase Urine RBC Urine WBC Ur Squamous Epith Cells Urine Bacteria Hyaline Casts Influenza Type A (PCR) Influenza Type B (PCR) RSV RNA Qual (PCR) SARS-CoV-2 RNA (RT-PCR) 10/25/23 10/25/23 10/25/23 05:24 05:52 06:22 WBC 9.5 RBC 2.46 L Hgb 7.5 L Hct 21.5 L MCV 87.4 MCH 30.5 MCHC 34.9 RDW 12.5 Plt Count 116 L MPV 11.1 Immature Gran % (Auto) 0.6 H Neut % (Auto) 79.4 H Lymph % (Auto) 8.4 L [place] % (Auto) 11.4 H Eos % (Auto) 0.0 Baso % (Auto) 0.2 Lymph # (Auto) 0.8 L [place] # (Auto) 1.1 Eos # (Auto) 0.0 Baso # (Auto) 0.0 Abs Immat Gran (auto) 0.06 H Absolute Neuts (auto) 7.5 Absolute Nucleated RBC 0.000 Nucleated RBC % (auto) 0.0 Hold Purple Top VBG pH VBG pCO2 VBG pO2 VBG HCO3 VBG O2 Saturation VBG Base Excess Sodium Potassium Chloride Carbon Dioxide Anion Gap BUN Creatinine Estim Creat Clear Calc Estimated GFR POC Glucose 373 H* 379 H* Random Glucose Insulin Level Lactic Acid Lactic Acid F/U @ 2Hr Lactic Acid F/U @ 4Hr Calcium Phosphorus Magnesium Total Bilirubin Direct Bilirubin AST ALT Alkaline Phosphatase Troponin I High Sens B-Natriuretic Peptide Total Protein Albumin Lipase Beta-Hydroxybutyrate TSH Thyroxine (T4) Hold Yellow Top Urine Color Urine Appearance Urine pH Ur Specific [place] Urine Protein Urine Glucose (UA) Urine Ketones Urine Blood Urine Nitrite Ur Leukocyte Esterase Urine RBC Urine WBC Ur Squamous Epith Cells Urine Bacteria Hyaline Casts Influenza Type A (PCR) Influenza Type B (PCR) RSV RNA Qual (PCR) SARS-CoV-2 RNA (RT-PCR) 10/25/23 10/25/23 10/25/23 07:22 08:11 09:38 WBC RBC Hgb Hct MCV MCH MCHC RDW Plt Count MPV Immature Gran % (Auto) Neut % (Auto) Lymph % (Auto) [place] % (Auto) Eos % (Auto) Baso % (Auto) Lymph # (Auto) [place] # (Auto) Eos # (Auto) Baso # (Auto) Abs Immat Gran (auto) Absolute Neuts (auto) Absolute Nucleated RBC Nucleated RBC % (auto) Hold Purple Top VBG pH VBG pCO2 VBG pO2 VBG HCO3 VBG O2 Saturation VBG Base Excess Sodium Potassium Chloride Carbon Dioxide Anion Gap BUN Creatinine Estim Creat Clear Calc Estimated GFR POC Glucose 359 H* 266 H 242 H Random Glucose Insulin Level Lactic Acid Lactic Acid F/U @ 2Hr Lactic Acid F/U @ 4Hr Calcium Phosphorus Magnesium Total Bilirubin Direct Bilirubin AST ALT Alkaline Phosphatase Troponin I High Sens B-Natriuretic Peptide Total Protein Albumin Lipase Beta-Hydroxybutyrate TSH Thyroxine (T4) Hold Yellow Top Urine Color Urine Appearance Urine pH Ur Specific [place] Urine Protein Urine Glucose (UA) Urine Ketones Urine Blood Urine Nitrite Ur Leukocyte Esterase Urine RBC Urine WBC Ur Squamous Epith Cells Urine Bacteria Hyaline Casts Influenza Type A (PCR) Influenza Type B (PCR) RSV RNA Qual (PCR) SARS-CoV-2 RNA (RT-PCR) 10/25/23 11:08 WBC RBC Hgb Hct MCV MCH MCHC RDW Plt Count MPV Immature Gran % (Auto) Neut % (Auto) Lymph % (Auto) [place] % (Auto) Eos % (Auto) Baso % (Auto) Lymph # (Auto) [place] # (Auto) Eos # (Auto) Baso # (Auto) Abs Immat Gran (auto) Absolute Neuts (auto) Absolute Nucleated RBC Nucleated RBC % (auto) Hold Purple Top VBG pH VBG pCO2 VBG pO2 VBG HCO3 VBG O2 Saturation VBG Base Excess Sodium Potassium Chloride Carbon Dioxide Anion Gap BUN Creatinine Estim Creat Clear Calc Estimated GFR POC Glucose 161 H Random Glucose Insulin Level Lactic Acid Lactic Acid F/U @ 2Hr Lactic Acid F/U @ 4Hr Calcium Phosphorus Magnesium Total Bilirubin Direct Bilirubin AST ALT Alkaline Phosphatase Troponin I High Sens B-Natriuretic Peptide Total Protein Albumin Lipase Beta-Hydroxybutyrate TSH Thyroxine (T4) Hold Yellow Top Urine Color Urine Appearance Urine pH Ur Specific [place] Urine Protein Urine Glucose (UA) Urine Ketones Urine Blood Urine Nitrite Ur Leukocyte Esterase Urine RBC Urine WBC Ur Squamous Epith Cells Urine Bacteria Hyaline Casts Influenza Type A (PCR) Influenza Type B (PCR) RSV RNA Qual (PCR) SARS-CoV-2 RNA (RT-PCR) Progress Note: A&P Assessment and plan (1) Acute on chronic kidney failure: Status: Acute (2) DKA (diabetic ketoacidosis): Status: Acute Plan Assessment: 53-year-old gentleman with underlying diabetes mellitus and chronic kidney disease admitted with diabetic ketoacidosis and acute on chronic renal failure requiring initiation of hemodialysis Plan: Neuro: No acute issues. Cardiac: No acute issues. Pulmonary: No acute issues. Renal: Acute on chronic renal failure with metabolic acidosis and hyperkalemia. Initiated on hemodialysis. Improved. Nephrology service care appreciated. Continue to monitor renal indices. Endo: Diabetic ketoacidosis resolved, titrated off insulin drip. Continue subcutaneous insulin. GI: No acute issues. ID: No acute issues Heme/Onc: No acute issues. Psych: No acute issues. Miscellaneous: No acute issues. Prophylaxis: Heparin Diet: Diabetic Quality Stroke Does the patient have a stroke diagnosis?: No VTE Prior VTE?: No VTE Risk Level:: Medical - moderate - high VTE Device Contraindication: N/A - Device Ordered VTE Drug Contraindication: N/A - Med Ordered
--- NOTE | 2023-10-25 12:15 | MHC.CM.PN ---
Met w/pt, his significant other and sister to review d/c planning needs: Pt is independent w/care needs, has no services and has working DM equipment. Pt's family assists w/transportation. Pt remains confused at times r/t DKA but is improving. verified as Dr. Fournier. Pt is not lucid enough to complete a HCP but CM will reapproach on 10/25. Family to transport home: no additional services identified.
[2023-10-25 13:21] LABS: Anion Gap 15 (12-20); Blood Urea Nitrogen 50 mg/dL (9-16); Calcium 8.2 mg/dL (8.4-10.2); Carbon Dioxide 24 mmol/L (22-29); Chloride 107 mmol/L (96-108); Glucose Random 138 mg/dL (60-115); Potassium 3.4 mmol/L (3.3-5.1); Sodium 143 mmol/L (135-145)
[2023-10-25 13:22] LABS: Creatinine Clr Calc Pharmacy 20.9; Estimated Glomerular Filt Rate 13
[2023-10-25 13:23] LABS: Glucose, Whole Blood 119 mg/dL (60-115)
--- NOTE | 2023-10-25 15:59 | PC.NURSE ---
bhatia removed 15:30, okayed removal. Pt DTV by 21:30.
--- NOTE | 2023-10-25 16:00 | PC.NURSE ---
Assumed care of patient on IMC at this time.
[2023-10-25 16:54] LABS: Glucose, Whole Blood 55 mg/dL (60-115)
[2023-10-25] MEDS: Dextrose 10 % 250 ML 750 ML IV ×2 (16:59→21:11)
[2023-10-25] MEDS: ondansetron HCL 4 MG/2 ML VIAL IVPUSH (17:10)
[2023-10-25 17:46] LABS: Glucose, Whole Blood 103 mg/dL (60-115)
[2023-10-25] MEDS: Dextrose 5 % and 0.9 % NaCl 1,000 ML 70 ML IVCONT (17:56)
[2023-10-25] MEDS: Acetaminophen 325 MG TABLET 650 MG PO (18:38)
[2023-10-25 19:55] LABS: Glucose, Whole Blood 70 mg/dL (60-115)
--- NOTE | 2023-10-25 20:21 | PC.NURSE ---
Addendum entered by Amandeep Diaz RN 10/25/23 21:29: prn d10 yoel per parameters. Original Note: this nurse taking over at 1915. pt fully alert and oriented. denies pain or SOB. pt reports feeling lethargic. POC glucose 70. see vitals. MD aware. no further orders for this nurse. call eugene in reach. pt states he is comfortable in bed with warm blanket. plan of care ongoing
[2023-10-25 21:10] LABS: Glucose, Whole Blood 65 mg/dL (60-115)
[2023-10-25] MEDS: OLANZapine 10 MG VIAL 5 MG IM (21:10)
[2023-10-25 22:09] LABS: Glucose, Whole Blood 135 mg/dL (60-115)
[2023-10-26] VITALS (12 sets, daily range): BP systolic 162–198; BP diastolic 60–86; PULSE 72–86; RESP 16–20; TEMP 35.7–38.2; O2SAT 89–98; BMI 35.8
[2023-10-26] MEDS: Piperacillin Sodium/Tazobactam 2.25 GM in 0.9 % Sodium Chloride 50 ML IV ×5 (00:12→23:28)
[2023-10-26] MEDS: Albumin Human 25 % 100 ML IV (02:17)
--- NOTE | 2023-10-26 05:00 | PC.NURSE ---
Pt had not voided.Bladder scan for 439.Pt adamant about not being cathed.Pt irritated swearing at staff.States you're not doing anything to me,I want to go home .BP also 198/86. Reported to Dr Burch. states let him be for now,can further monitor for retention this morning.
[2023-10-26 05:17] LABS: Glucose, Whole Blood 78 mg/dL (60-115)
[2023-10-26 06:21] LABS: MANUAL DIFF FLAG NO
[2023-10-26 06:41] LABS: Basophils Percent Auto 0.4 % (0-2); Eosinophils Percent Auto 0.1 % (0-4); Hemoglobin 7.2 g/dl (14.0-18.0); Imm Gran Abs Auto 0.03 X10*3/uL (0.00-0.03); Imm Gran Pct Auto 0.4 % (0.0-0.4); Lymphocytes Absolute Auto 1.1 X10*3/uL (1.2-4.9); Lymphocytes Percent Auto 16.9 % (20-40); Mean Corpuscular HGB Conc 34.3 g/dl (31.0-36.0); Mean Corpuscular Hemoglobin 30.4 pg (27.0-33.0); Mean Corpuscular Volume 88.6 fL (80.0-98.0); Mean Platelet Volume 11.5 fL (9.4-12.4); Monocytes Absolute Auto 0.6 X10*3/uL (0.1-1.2); Monocytes Percent Auto 9.4 % (2-11); Neutrophils Absolute Auto 4.9 x10*3/uL (2.0-8.3); Neutrophils Percent Auto 72.8 % (45-73); Red Blood Count 2.37 X10*6/uL (4.60-5.80); Red Cell Distribution Width 13.2 % (11.0-16.0); White Blood Count 6.7 X10*3/uL (4.8-10.8)
[2023-10-26 06:47] LABS: Platelet Count 95 X10*3/uL (160-400)
[2023-10-26 06:51] LABS: Albumin Level 3.9 g/dL (3.5-5.0); Anion Gap 19 (12-20); Blood Urea Nitrogen 50 mg/dL (9-16); Carbon Dioxide 20 mmol/L (22-29); Chloride 110 mmol/L (96-108); Creatinine Clr Calc Pharmacy 17.3; Estimated Glomerular Filt Rate 10; Glucose Random 95 mg/dL (60-115); Magnesium 1.6 mg/dL (1.6-2.6); Phosphorus 3.4 mg/dL (2.7-4.5); Potassium 3.8 mmol/L (3.3-5.1); Sodium 145 mmol/L (135-145)
[2023-10-26 07:25] LABS: Glucose, Whole Blood 117 mg/dL (60-115)
[2023-10-26] MEDS: Acetaminophen 1,000 MG/100 ML PIGGYBACK 400 MG IV (07:58)
[2023-10-26] MEDS: Heparin Sodium,Porcine 5,000 UNIT/ML VIAL 5000 UNIT SUBCUT ×3 (08:12→20:21)
[2023-10-26] MEDS: Insulin Glargine,Hum.rec.anlog 100 UNIT/ML 10 ML VIAL 15 UNIT SUBCUT (08:12)
--- NOTE | 2023-10-26 08:24 | HO.PM.IMPN ---
Subjective Subjective Date of Service: 10/26/23 Interval History: fatigued Physical Exam Vital Signs: Vital Signs: Last Vital Signs Temp 99.5 F 10/26/23 07:17 Pulse 86 10/26/23 07:17 Resp 20 10/26/23 07:17 BP 168/74 H 10/26/23 07:17 Pulse Ox 89 L 10/26/23 07:17 O2 Del Method Nasal Cannula 10/26/23 07:17 O2 Flow Rate 2 10/26/23 07:17 BMI result Body Mass Index 35.8 General: lethargic O X 3, ill appearing Resp: Crackles bilateral, no accessory muscles used CVS: S1,S2,RRR GI: soft, non tender, non distended Neuro: motor grossly intact, lethargic Psych: appropriate affect, appropriate insight Objective Data Active Medications Acetaminophen (Acetaminophen 325 Mg Tablet) 650 mg PO Q6H PRN PRN Reason: pain or fever Last Admin: 10/25/23 18:38 Dose: 650 mg Documented By: MARY JANE Heparin Sodium (Porcine) (Heparin Sodium,Porcine 5,000 Unit/Ml Vial) 5,000 unit SUBCUT TID [facility] Last Admin: 10/26/23 08:12 Dose: 5,000 unit Documented By: SANDY Dextrose (D10) 250 mls @ 750 mls/hr IV Q30M PRN PRN Reason: BG <70 Last Infusion: 10/25/23 23:41 Dose: Infused Documented By: LORRAINE Piperacillin Sod/Tazobactam (Sod 2.25 gm/ Sodium Chloride) 50 mls @ 100 mls/hr IV Q6H [facility] Last Infusion: 10/26/23 06:14 Dose: Infused Documented By: TRE Insulin Glargine (Insulin Glargine,Hum.Rec.Anlog 100 Unit/Ml 10 Ml Vial) 15 unit SUBCUT DAILY [facility] Last Admin: 10/26/23 08:12 Dose: 15 unit Documented By: SANDY Insulin Human Lispro (Insulin Lispro 100 Unit/Ml 3 Ml Vial) 0 unit SUBCUT QIDACHS [facility]; Protocol Last Admin: 10/26/23 07:39 Dose: Not Given Documented By: SANDY Non-Admin Reason: No Insulin Coverage Ondansetron HCl (Ondansetron Hcl 4 Mg/2 Ml Vial) 4 mg IVPUSH Q6H PRN PRN Reason: Nausea Last Admin: 10/25/23 17:10 Dose: 4 mg Documented By: MARY JANE Labs 10/26/23 05:43 10/26/23 05:43 Labs: Laboratory Results - last 24 hr 10/25/23 10/25/23 10/25/23 09:38 11:08 12:06 MCV MCH MCHC RDW Plt Count MPV Immature Gran % (Auto) Neut % (Auto) Lymph % (Auto) [place] % (Auto) Eos % (Auto) Baso % (Auto) Lymph # (Auto) [place] # (Auto) Eos # (Auto) Baso # (Auto) Abs Immat Gran (auto) Absolute Neuts (auto) Absolute Nucleated RBC Nucleated RBC % (auto) Anion Gap 15 Estim Creat Clear Calc 20.9 Estimated GFR 13 POC Glucose 242 H 161 H Random Glucose 138 H Calcium 8.2 L Phosphorus Magnesium Albumin 10/25/23 10/25/23 10/25/23 13:18 16:50 17:43 MCV MCH MCHC RDW Plt Count MPV Immature Gran % (Auto) Neut % (Auto) Lymph % (Auto) [place] % (Auto) Eos % (Auto) Baso % (Auto) Lymph # (Auto) [place] # (Auto) Eos # (Auto) Baso # (Auto) Abs Immat Gran (auto) Absolute Neuts (auto) Absolute Nucleated RBC Nucleated RBC % (auto) Anion Gap Estim Creat Clear Calc Estimated GFR POC Glucose 119 H 55 L* 103 Random Glucose Calcium Phosphorus Magnesium Albumin 10/25/23 10/25/23 10/25/23 19:47 21:04 22:03 MCV MCH MCHC RDW Plt Count MPV Immature Gran % (Auto) Neut % (Auto) Lymph % (Auto) [place] % (Auto) Eos % (Auto) Baso % (Auto) Lymph # (Auto) [place] # (Auto) Eos # (Auto) Baso # (Auto) Abs Immat Gran (auto) Absolute Neuts (auto) Absolute Nucleated RBC Nucleated RBC % (auto) Anion Gap Estim Creat Clear Calc Estimated GFR POC Glucose 70 65 135 H Random Glucose Calcium Phosphorus Magnesium Albumin 10/26/23 10/26/23 10/26/23 05:12 05:43 07:20 MCV 88.6 MCH 30.4 MCHC 34.3 RDW 13.2 Plt Count 95 L MPV 11.5 Immature Gran % (Auto) 0.4 Neut % (Auto) 72.8 Lymph % (Auto) 16.9 L [place] % (Auto) 9.4 Eos % (Auto) 0.1 Baso % (Auto) 0.4 Lymph # (Auto) 1.1 L [place] # (Auto) 0.6 Eos # (Auto) 0.0 Baso # (Auto) 0.0 Abs Immat Gran (auto) 0.03 Absolute Neuts (auto) 4.9 Absolute Nucleated RBC 0.000 Nucleated RBC % (auto) 0.0 Anion Gap 19 Estim Creat Clear Calc 17.3 Estimated GFR 10 POC Glucose 78 117 H Random Glucose 95 Calcium 8.0 L Phosphorus 3.4 Magnesium 1.6 Albumin 3.9 Microbiology Microbiology Results: Microbiology 10/24/23 19:12 Blood Culture - Preliminary Blood - Venous No growth after 24 hours. 10/24/23 18:51 Blood Culture - Preliminary Blood - Venous No growth after 24 hours. Assessment and Plan (1) Renal failure: Status: Acute Plan 53M PMH DM, htn, CKD V, mood disorder admitted 10/24/23 to ICU for DKA, ching on CKD V with hyperkalemia requiring emergent HD. DKA resolved, hyperkalemia resolved, downgraded to medical floor 10/25/23. course copmlicated by acute hypoxia and fevers (not meeting SIRS) CHING on CKD 5 complicated by acute metabolic acidosis,hyperkalemia, and anemia Started on hemodialysis, Nephrology following, nonoliguric but with urinary retention, plan to reinsert [place] Diabetes with DKA Resolved, now with hypoglycemia Basal bolus insulin, monitor Dysphagia NPO for now, follow up speech therapy Fever without sepsis and acute hypoxic respiratory failure Possible pneumonia, covering with IV Zosyn, follow-up cultures-negative to date DVT prophylaxis with heparin sq Full code reason for continued hospitalization: Not taking p.o., still having fevers Quality Stroke Does the patient have a stroke diagnosis?: No VTE Prior VTE?: No VTE Risk Level:: Medical - moderate - high VTE Device Contraindication: N/A - Device Ordered VTE Drug Contraindication: N/A - Med Ordered
[2023-10-26 12:02] LABS: Glucose, Whole Blood 125 mg/dL (60-115)
[2023-10-26] MEDS: hydrALAZINE HCl 20 MG/ML VIAL 5 MG IVPUSH ×2 (12:11→18:02)
[2023-10-26] MEDS: Labetalol HCL 100 MG/20 ML VIAL 10 MG IVPUSH (13:08)
[2023-10-26 16:10] LABS: Glucose, Whole Blood 154 mg/dL (60-115)
[2023-10-26 21:44] LABS: Glucose, Whole Blood 189 mg/dL (60-115)
[2023-10-27] VITALS (12 sets, daily range): BP systolic 156–178; BP diastolic 58–86; PULSE 66–76; RESP 16–20; TEMP 36.8–37.9; O2SAT 88–99; BMI 35.8
[2023-10-27 00:13] LABS: CDiff Gene PCR NEGATIVE (Negative)
--- NOTE | 2023-10-27 04:12 | PC.NURSE ---
Addendum entered by Kandi Franklin RN 10/27/23 05:31: pt agitated, swearing at RN, refusing zosyn and threatening to rip out last IV. zosyn not administered. Original Note: pt a&ox4, pt agitated intermittently throughout the shift. around 04:00, patient tele was off the monitor along with O2 sat. RN into room, patient pulling tele off and slamming it on the floor, ripping out IV lines and bleeding all over the bed. When questioned patient stated, I just want to go home, I don't need this. Pt combative with nurse, using explicit language, refusing care. RN able to stop bleeding to bilateral arm/IV sites. RN place camera in room and notified VMT for patient safety as pt has a right IJ line and RN is worried patient will pull this out as well. Patient states he knows what he is doing is not okay and he is not usually an asshole, but does not want to be here and wants to leave right now. PT continues to be combative and verbally abusive to staff. call eugene in patient reach, patient re-educated on use of call eugene and states he won't use it because yelling gets things done.
[2023-10-27 07:19] LABS: Glucose, Whole Blood 282 mg/dL (60-115)
[2023-10-27 08:45] LABS: Hematocrit 22.9 % (42.0-52.0); Hemoglobin 7.5 g/dl (14.0-18.0); Mean Corpuscular HGB Conc 32.8 g/dl (31.0-36.0); Mean Corpuscular Hemoglobin 30.1 pg (27.0-33.0); Mean Platelet Volume 12.2 fL (9.4-12.4); Red Blood Count 2.49 X10*6/uL (4.60-5.80); Red Cell Distribution Width 13.2 % (11.0-16.0); White Blood Count 6.4 X10*3/uL (4.8-10.8)
[2023-10-27 08:46] LABS: Platelet Count 89 X10*3/uL (160-400)
[2023-10-27 08:57] LABS: HBS Num1 0.33 mIU/mL (0-7.99); HBc Num1 0.09 S/CO (0.00-0.79); HBsAGNum1 0.27 S/CO (0.00-0.99); Hepatitis B Core Antibody Nonreactive (Nonreactive); Hepatitis B Surface Antigen Negative (Negative); ~Hepatitis B Surface Antibody NONREACTIVE (Nonreactive)
[2023-10-27 09:02] LABS: Alanine Aminotransferase 42 U/L (0-40); Albumin Level 3.6 g/dL (3.5-5.0); Alkaline Phosphatase 72 U/L (39-117); Anion Gap 19 (12-20); Aspartate Amino Transferase 22 U/L (5-37); Bilirubin Direct 0.4 mg/dL (0.0-0.5); Blood Urea Nitrogen 59 mg/dL (9-16); Calcium 7.6 mg/dL (8.4-10.2); Carbon Dioxide 20 mmol/L (22-29); Chloride 111 mmol/L (96-108); Creatinine Clr Calc Pharmacy 15.3; Estimated Glomerular Filt Rate 9; Glucose Fasting 332 mg/dL (60-99); Potassium 4.4 mmol/L (3.3-5.1); Sodium 146 mmol/L (135-145); Total Protein 5.9 g/dL (6.5-8.0)
[2023-10-27] MEDS: Heparin Sodium,Porcine 5,000 UNIT/ML VIAL 5000 UNIT SUBCUT ×3 (09:13→20:37)
[2023-10-27] MEDS: Insulin Lispro 100 UNIT/ML 3 ML VIAL SUBCUT ×2 (09:14→12:28)
[2023-10-27] MEDS: Insulin Glargine,Hum.rec.anlog 100 UNIT/ML 10 ML VIAL 15 UNIT SUBCUT (09:14)
--- NOTE | 2023-10-27 10:49 | HO.PM.IMPN ---
Subjective Subjective Date of Service: 10/27/23 Interval History: hemoptysis Physical Exam Vital Signs: Vital Signs: Last Vital Signs Temp 98.3 F 10/27/23 07:53 Pulse 71 10/27/23 07:53 Resp 20 10/27/23 07:53 BP 156/72 H 10/27/23 07:53 Pulse Ox 97 10/27/23 07:53 O2 Del Method Nasal Cannula 10/27/23 07:53 O2 Flow Rate 2 10/27/23 07:53 BMI result Body Mass Index 35.8 General: lethargic O X 3, ill appearing Resp: Crackles bilateral, no accessory muscles used CVS: S1,S2,RRR GI: soft, non tender, non distended Neuro: motor grossly intact, lethargic Psych: appropriate affect, appropriate insight Objective Data Active Medications Acetaminophen (Acetaminophen 325 Mg Tablet) 650 mg PO Q6H PRN PRN Reason: pain or fever Last Admin: 10/25/23 18:38 Dose: 650 mg Documented By: MARY JANE Heparin Sodium (Porcine) (Heparin Sodium,Porcine 5,000 Unit/Ml Vial) 5,000 unit SUBCUT TID [facility] Last Admin: 10/27/23 09:13 Dose: 5,000 unit Documented By: ANKIT Hydralazine HCl (Hydralazine Hcl 20 Mg/Ml Vial) 5 mg IVPUSH Q6H PRN; Protocol PRN Reason: sbp greater than 180 Last Admin: 10/26/23 18:02 Dose: 5 mg Documented By: TELLY Dextrose (D10) 250 mls @ 750 mls/hr IV Q30M PRN PRN Reason: BG <70 Last Infusion: 10/25/23 23:41 Dose: Infused Documented By: LORRAINE Piperacillin Sod/Tazobactam (Sod 2.25 gm/ Sodium Chloride) 50 mls @ 100 mls/hr IV Q6H [facility] Last Admin: 10/27/23 05:31 Dose: Not Given Documented By: ABIMBOLA Non-Admin Reason: Patient Refused Insulin Glargine (Insulin Glargine,Hum.Rec.Anlog 100 Unit/Ml 10 Ml Vial) 15 unit SUBCUT DAILY [facility] Last Admin: 10/27/23 09:14 Dose: 15 unit Documented By: ANKIT Insulin Human Lispro (Insulin Lispro 100 Unit/Ml 3 Ml Vial) 0 [facility]; Protocol Last Admin: 10/27/23 09:14 Dose: 6 unit Documented By: ANKIT Ondansetron HCl (Ondansetron Hcl 4 Mg/2 Ml Vial) 4 mg IVPUSH Q6H PRN PRN Reason: Nausea Last Admin: 10/25/23 17:10 Dose: 4 mg Documented By: MARY JANE Labs 10/27/23 08:40 10/27/23 08:40 Labs: Laboratory Results - last 24 hr 10/24/23 10/26/23 10/26/23 23:11 11:34 15:53 MCV MCH MCHC RDW Plt Count MPV Absolute Nucleated RBC Nucleated RBC % (auto) Anion Gap Estim Creat Clear Calc Estimated GFR POC Glucose 125 H 154 H Fasting Glucose Calcium Total Bilirubin Direct Bilirubin AST ALT Alkaline Phosphatase Total Protein Albumin C. difficile Tox B Gene Hep Bs Antigen Negative Hep Bs Antibody NONREACTIVE Hep B Core Total Ab Nonreactive 10/26/23 10/26/23 10/27/23 21:40 22:49 06:59 MCV MCH MCHC RDW Plt Count MPV Absolute Nucleated RBC Nucleated RBC % (auto) Anion Gap Estim Creat Clear Calc Estimated GFR POC Glucose 189 H 282 H Fasting Glucose Calcium Total Bilirubin Direct Bilirubin AST ALT Alkaline Phosphatase Total Protein Albumin C. difficile Tox B Gene NEGATIVE Hep Bs Antigen Hep Bs Antibody Hep B Core Total Ab 10/27/23 08:40 MCV 92.0 MCH 30.1 MCHC 32.8 RDW 13.2 Plt Count 89 L MPV 12.2 Absolute Nucleated RBC 0.000 Nucleated RBC % (auto) 0.0 Anion Gap 19 Estim Creat Clear Calc 15.3 Estimated GFR 9 POC Glucose Fasting Glucose 332 H Calcium 7.6 L Total Bilirubin 1.0 Direct Bilirubin 0.4 AST 22 ALT 42 H Alkaline Phosphatase 72 Total Protein 5.9 L Albumin 3.6 C. difficile Tox B Gene Hep Bs Antigen Hep Bs Antibody Hep B Core Total Ab Microbiology Microbiology Results: Microbiology 10/24/23 19:12 Blood Culture - Preliminary Blood - Venous No growth after 48 hours. 10/24/23 18:51 Blood Culture - Preliminary Blood - Venous No growth after 48 hours. Assessment and Plan (1) Renal failure: Status: Acute Plan 53M PMH DM, htn, CKD V, mood disorder admitted 5/10/24 to ICU for DKA, natalia on CKD V with hyperkalemia requiring emergent HD. DKA resolved, hyperkalemia resolved, downgraded to medical floor 10/25/23. course copmlicated by acute hypoxia and fevers (not meeting SIRS) NATALIA on CKD 5 complicated by acute metabolic acidosis,hyperkalemia, and anemia Started on hemodialysis, Nephrology following, nonoliguric but with urinary retention, has Randolph, will start flomax when taking po Diabetes with DKA Resolved Basal bolus insulin, monitor Dysphagia NPO for now, follow up speech therapy Fever without sepsis and acute hypoxic respiratory failure Possible pneumonia, covering with IV Zosyn, follow-up cultures-negative to date DVT prophylaxis with heparin sq Full code reason for continued hospitalization: Not taking p.o., natalia Quality Stroke Does the patient have a stroke diagnosis?: No VTE Prior VTE?: No VTE Risk Level:: Medical - moderate - high VTE Device Contraindication: N/A - Device Ordered VTE Drug Contraindication: N/A - Med Ordered
[2023-10-27 11:09] LABS: Adenovirus F 40/41 Not Detected (Not Detect.); Astrovirus Not Detected (Not Detect.); Campylobacter Not Detected (Not Detect.); Cryptosporidium Not Detected (Not Detect.); Cyclospora cayetanensis Not Detected (Not Detect.); E. coli EAEC Not Detected (Not Detect.); E. coli EPEC Not Detected (Not Detect.); E. coli ETEC Not Detected (Not Detect.); E. coli STEC Not Detected (Not Detect.); Entamoeba histolytica Not Detected (Not Detect.); Giardia lamblia Not Detected (Not Detect.); Norovirus GI/GII Not Detected (Not Detect.); Plesiomonas shigelloides Not Detected (Not Detect.); Rotavirus A Not Detected (Not Detect.); Salmonella Not Detected (Not Detect.); Sapovirus Not Detected (Not Detect.); Shigella sp./EIEC Not Detected (Not Detect.); Vibrio Not Detected (Not Detect.); Vibrio Cholerae Not Detected (Not Detect.); Yersinia enterocolitica Not Detected (Not Detect.)
[2023-10-27 11:11] LABS: Glucose, Whole Blood 257 mg/dL (60-115)
[2023-10-27] MEDS: Piperacillin Sodium/Tazobactam 2.25 GM in 0.9 % Sodium Chloride 50 ML IV ×3 (12:28→23:36)
[2023-10-27] MEDS: Acetaminophen 325 MG TABLET 650 MG PO (12:43)
--- NOTE | 2023-10-27 13:26 | MHC.SL.SWA ---
Speech Pathologist Impression: Pharyngeal phase dysphagia Liquid Consistency and Strategies for Safe Swallow: Liquid Intake Recommendation: NPO Solid Food Consistency: Dietary Recommendations: NPO Additional Modifications to Solid Foods: Based on clinical observations at bedside, safest textures appear to be CHOPPED/ADVANCED diet (NDD3) for solids with NECTAR THICK liquids. Upon discussion with Dr. Barreto, decision was made for patient to remain NPO at this time pending MBSS, which is recommended to further evaluate extent of pharyngeal dysphagia and to identify dietary recommendations. MBSS is scheduled with Radiology for 2:15pm today. Oral Medication Intake: NPO Please contact the pharmacy regarding appropriate crushable or liquid drug formulations that are available whenever modified delivery is recommended. Supervision While Eating and Drinking for Safe Swallow: PO with MANAGER GAMING Recommendation for Speech: Modified Barium Swallow Study - Inpatient Stapler Machine Clinican/Clinical Fellow: No Supervisory Statement: I have reviewed and agree with the student/clinical fellow's documentation: N/A Speech Language Pathologist: Ileana Reno M.A., CCC-MANAGER GAMING
--- NOTE | 2023-10-27 14:43 | P.CONNP_ITS ---
History of Present Illness Reason for Consult Consult date: 10/27/23 Reason for consult: NATALIA Chief Complaint Chief complaint: DKA History of Present Illness Narrative: 53-year-old man with a history of advanced kidney disease in the setting of diabetes mellitus and hypertension came to the emergency room with DKA and was found to have severe hyperkalemia. Underwent emergency dialysis due to severe acidosis hyperkalemia. This abnormality was corrected and has been transferred to the floor. Review of Systems Constitutional: Denies fever(s) and Denies weight loss Cardiovascular: Denies chest pain Respiratory: Denies cough and Denies hemoptysis Gastrointestinal: Denies abdominal pain, Denies diarrhea and Denies nausea Musculoskeletal: Denies back pain Denies focal weakness PMFSH Past Medical History Medical History (Updated 10/24/23 @ 23:13 by Brenna Rodríguez NP) Metabolic acidosis Right foot ulcer Anxiety History of foot ulcer Obesity (BMI 30-39.9) Depression Rotator cuff arthropathy of left shoulder Vitamin D deficiency Allergic rhinitis Anemia Pure hypercholesterolemia Benign essential hypertension Diabetic polyneuropathy Type 2 diabetes mellitus with diabetic chronic kidney disease Erectile dysfunction Type 2 diabetes mellitus with hyperglycemia, with long-term current use of insulin Type 2 diabetes mellitus with diabetic polyneuropathy Type 2 diabetes mellitus with chronic kidney disease 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 LDL goal <70 Family History Family History Father Lung cancer Mother Hypertension Coronary artery disease CVD (cardiovascular disease) TIA (transient ischemic attack) Sister Diabetes Maternal Uncle Diabetes Other Mental health problem Surgical History Surgical History History of nasal surgery Social History Social History Household Members: Unknown / Unable to assess Housing: Unknown / Unable to assess Do you presently have visiting nurse or other home services: No Alcohol intake: current Alcohol intake frequency: holidays/special occasions only Patient Tobacco Use Status: Never used Tobacco Smoked in Last 30 Days: No e-Cigarette/Vaping Use: Never Used Second Hand Smoke Exposure: Yes Use of substances other than those prescribed or required for medical reasons: No Currently Displaying Signs/Symptoms of Drug Intoxication Withdrawal: No Advance Directives: No Advance Directives Information Provided: No Do you have a plan to hurt others: No Plan Recently lost weight without trying: No How much weight loss: Unsure Eating poorly because of decreased appetite: No Nutrition screen score: 2 Nutrition Risks: Diabetes new onset/Uncontrolled Poor oral hygiene: No service: No Current occupational status: unemployed Cognitive needs: No Hearing needs: No Vision needs: No Meds Allergies Allergy/AdvReac Type Severity Reaction Status Date / Time No Known Allergies Allergy Verified 10/24/23 18:33 Active Medications: Current Medications Acetaminophen (Acetaminophen 325 Mg Tablet) 650 mg PO Q6H PRN PRN Reason: pain or fever Last Admin: 10/27/23 12:43 Dose: 650 mg Heparin Sodium (Porcine) (Heparin Sodium,Porcine 5,000 Unit/Ml Vial) 5,000 unit SUBCUT TID [facility] Last Admin: 10/27/23 09:13 Dose: 5,000 unit Hydralazine HCl (Hydralazine Hcl 20 Mg/Ml Vial) 5 mg IVPUSH Q6H PRN; Protocol PRN Reason: sbp greater than 180 Last Admin: 10/26/23 18:02 Dose: 5 mg Dextrose (D10) 250 mls @ 750 mls/hr IV Q30M PRN PRN Reason: BG <70 Last Infusion: 10/25/23 23:41 Dose: Infused Piperacillin Sod/Tazobactam (Sod 2.25 gm/ Sodium Chloride) 50 mls @ 100 mls/hr IV Q6H [facility] Last Infusion: 10/27/23 12:58 Dose: Infused Insulin Glargine (Insulin Glargine,Hum.Rec.Anlog 100 Unit/Ml 10 Ml Vial) 15 unit SUBCUT DAILY [facility] Last Admin: 10/27/23 09:14 Dose: 15 unit Insulin Human Lispro (Insulin Lispro 100 Unit/Ml 3 Ml Vial) 0 unit SUBCUT QIDACHS [facility]; Protocol Last Admin: 10/27/23 12:28 Dose: 6 unit Ondansetron HCl (Ondansetron Hcl 4 Mg/2 Ml Vial) 4 mg IVPUSH Q6H PRN PRN Reason: Nausea Last Admin: 10/25/23 17:10 Dose: 4 mg Home Medications ?Medication ?Instructions ?Recorded ?Confirmed ?Last Taken ?Type hydralazine 50 mg tablet 50 mg PO TID 10/24/23 10/24/23 Unknown History oxycodone 5 mg tablet 5 mg PO TID PRN severe pain 10/24/23 Unknown History Physical Exam Vital Signs: Last Vital Signs Temp 99.1 F 10/27/23 13:43 Pulse 71 10/27/23 13:43 Resp 16 10/27/23 13:43 BP 156/86 H 10/27/23 10:58 Pulse Ox 99 10/27/23 12:41 O2 Del Method Nasal Cannula 10/27/23 12:41 O2 Flow Rate 2 10/27/23 12:41 BMI result Body Mass Index 35.8 Const General: ill appearing Neck Neck: Yes supple Resp Auscultation: clear to auscultation bilaterally Cardio Palpation: no palpable S3 Heart sounds: no rubs GI Palpation (GI): Soft to palpation Auscultation: normal bowel sounds Neuro Motor exam (neuro): no asterixis Results Lab Results 10/27/23 08:40 10/27/23 08:40 Lab results: Chemistry 10/24/23 10/24/23 10/25/23 18:28 21:38 00:29 Sodium 126 L 132 L 137 Potassium 8.3 H* D 6.1 H* D 3.4 D Carbon Dioxide < 5 L* D < 5 L* 9 L* D BUN 86 H 84 H 65 H Creatinine 7.21 H* 7.29 H* 5.76 H* Calcium 8.2 L D 8.0 L 7.8 L Phosphorus 8.4 H 10/25/23 10/25/23 10/26/23 04:42 12:06 05:43 Sodium 139 143 145 Potassium 3.1 L 3.4 3.8 Carbon Dioxide 21 L 24 20 L BUN 49 H 50 H 50 H Creatinine 4.55 H* 4.81 H* 5.84 H* Calcium 8.1 L 8.2 L 8.0 L Phosphorus 1.4 L 3.4 10/27/23 08:40 Sodium 146 H Potassium 4.4 Carbon Dioxide 20 L BUN 59 H Creatinine 6.58 H* Calcium 7.6 L Phosphorus Hematology 10/24/23 10/25/23 10/25/23 18:28 04:42 05:52 WBC 14.8 H 10.0 9.5 Hgb 8.3 L 7.0 L* 7.5 L Plt Count 255 D 106 L D 116 L 10/26/23 10/27/23 05:43 08:40 WBC 6.7 6.4 Hgb 7.2 L 7.5 L Plt Count 95 L 89 L Urinalysis 10/24/23 20:07 Urine Color Yellow Urine Appearance Cloudy Urine pH 5.0 Ur Specific [place] 1.025 Urine Protein >=1000 (4+) H Urine Glucose (UA) >=1000 H Urine Ketones Trace Urine Blood Large (3+) H Urine Nitrite Negative Ur Leukocyte Esterase Negative Urine RBC >20 H Urine WBC 0-5 Ur Squamous Epith Cells 6-10 Hyaline Casts 0-2 Assessment and Plan (1) Acute on chronic kidney failure: Qualifiers: Acute renal failure type: unspecified Chronic kidney disease stage: s tage 5, not on chronic dialysis Qualified Code(s): N17.9 - Acute kidney failure, unspecified; N18.5 - Chronic kidney disease, stage 5 Status: Acute (2) Acute hyperkalemia: Status: Acute Plan 53-year-old man with stage IV CKD admitted with severe hyperkalemia due to diabetic ketoacidosis. He underwent emergency dialysis in potassium stance corrected. He is currently nonoliguric. Blood sugar is better controlled. I would watch him over the next 24-48 hours to see if there is any meaningful renal recovery. If not he would require ongoing dialysis and I will arrange for the same. Severe anemia due to CKD. Iron stores were adequate in September. I will administer a dose of Epogen today. Mild metabolic acidosis Mild hypernatremia due to free water deficit needs to increase p.o. water intake. Procedures Date of Service Date of Service: 10/27/23
--- NOTE | 2023-10-27 15:29 | MHC.CM.PN ---
EMR reviewed and per MD rounds, pt is not medically cleared for discharge due to management of NATALIA, fevers, and pt still not taking PO.
[2023-10-27 16:25] LABS: Glucose, Whole Blood 83 mg/dL (60-115)
[2023-10-27] MEDS: Epoetin Alfa-epbx 10,000 UNIT/ML VIAL 10000 UNIT SUBCUT (16:31)
--- NOTE | 2023-10-27 17:42 | MHC.SL.IMP ---
Date of Plan of Treatment: 10/27/23 Onset of Symptoms/Illness: 10/20/23 Date Treatment Started: 10/27/23 Admitting Diagnosis: Renal failure Primary Speech & Language Diagnosis: R13.12 Oropharyngeal Phase Dysphagia Reason for Today's Visit: 76251 Modified Barium Swallow Study Pre-evaluation Dietary Consistencies: NPO Pre-evaluation Liquid Consistency: NPO Pre-evaluation Medication Administration: NPO Medical History: Modified Barium Swallow Study Fluoroscopic Evaluation of Swallowing Function CPT Code 75781 Evaluation Year: 2023 Reason for Study: Pt displays overt s/s of aspiration at bedside. Referring Physician: Sal Barreto MD Evaluating Clinician: Ileana Reno MA, CCC-FAMILY PRACTICE MEDICAL DOCTOR Study Number: 1 Patient Name: Howard Chino Status: Inpatient Age: 53 Gender: Male Medical History Medical History (Updated 10/24/23 @ 23:13 by Brenna Rodríguez NP) Metabolic acidosis Right foot ulcer Anxiety History of foot ulcer Obesity (BMI 30-39.9) Depression Rotator cuff arthropathy of left shoulder Vitamin D deficiency Allergic rhinitis Anemia Pure hypercholesterolemia Benign essential hypertension Diabetic polyneuropathy Type 2 diabetes mellitus with diabetic chronic kidney disease Erectile dysfunction Type 2 diabetes mellitus with hyperglycemia, with long-term current use of insulin Type 2 diabetes mellitus with diabetic polyneuropathy Type 2 diabetes mellitus with chronic kidney disease 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 LDL goal <70 Surgical History History of nasal surgery Current (pre-evaluation) Intake/Diet: Route: NPO Pre-Study Functional Oral Intake Scale (FOIS): 1- No oral intake Pain: None reported at time of study SUBJECTIVE: Patient is a 53 year old male admitted for NATALIA on CKD 5 complicated by acute metabolic acidosis, hyperkalemia, and anemia. Patient's CXR 10/24 showed no acute pulmonary disease. Patient was observed by RN and FAMILY PRACTICE MEDICAL DOCTOR to be coughing with PO intake. History of patient?s difficulties is unclear. Patient reports onset of dysphagia ?a week ago? while here in the hospital, however he did not indicate whether this was a sudden or gradual change nor did he specify what his symptoms were. Patient repeatedly stated, ?I just have to get used to swallowing again.? He says he does not remember whether he was getting his meals in the ICU and did mention, ?At home obviously when I chugged liquid I would have trouble,? but at the same time denied any prior history of swallow difficulty. He was recommended further evaluation with MBSS to assess the severity of his dysphagia and to provide feeding recommendations. Oral Motor Exam Facial Symmetry: Symmetrical Facial Movement: Controlled Mouth Occlusion: Normal Oral-Facial Teeth Characteristics: Intact/Normal Oral-Facial Lip Pucker Description: Normal Oral-Facial Smile (Lips) Description: Normal Oral-Facial Puff Cheeks Description: Normal Tongue Size: Normal Tongue Excursion Description: Normal Tongue Range of Movement Description: Normal Tongue Speed of Movement Description: Normal Tongue Strength of Movement (against opposing pressure): Normal Tongue Movement Characteristics: Normal/Absent Is patient able to manage secretions?: Yes Is patient able to produce volitional cough?: Yes Food and Liquid Trials: Oral Impairment: Lip Closure: 0=No labial escape Oral Impairment: Tongue Control During Bolus Hold: Did not test Oral Impairment: Bolus Preparation/Mastication: Did not test Oral Impairment: Bolus Transport/Lingual Motion: 2=Slowed tongue motion Oral Impairment: Oral Residue: 0=Complete oral clearance Oral Impairment:Initiation of Pharyngeal Swallow: 3=Bolus head in pyriforms Pharyngeal Impairment: Soft Palate Elevation: 0=No bolus between soft palate (SP)/pharyngeal wall (PW) Pharyngeal Impairment: Laryngeal Elevation: 1=Partial thyroid cartilage/arytenoids to epiglottic petiole movement Pharyngeal Impairment: Anterior Hyoid Excursion: 1=Partial anterior movement Pharyngeal Impairment: Epiglottic Movement: 1=Partial inversion Pharyngeal Impairment: Laryngeal Vestibular Closure:: 2=None: No inversion Pharyngeal Impairment: Pharyngeal Stripping Wave: 0=Present: complete Pharyngeal Impairment: Pharyngeal Contraction: Did not test Pharyngeal Impairment: Pharyngoesophageal Segment Openin=Complete distension and complete duration: no obstruction of flow Pharyngeal Impairment: Tongue Base (TB) Retraction: 1=Trace column of contrast/air between TB and posterior PW Pharyngeal Impairment: Pharyngeal Residue: 2=Collection of residue within or on pharyngeal structures Pharyngeal Impairment: Esophageal Clearance Upright Position: Did not test Impressions and Recommendations OBJECTIVE: Time-out: performed at 15:00 Evaluation Start: 14:45; Stop: 14:50 Patient Positioning: Seated 70-90 degrees Viewing Planes: LATERAL ONLY Contrast: MBSImP? Standardized Protocol using commercially prepared, standardized Barium viscosities, including: Varibar? THIN LIQUID (40% w/v, <15 cps) , Varibar? NECTAR (40% w/v, <150-450 cps) MBSImP ID: [id number] Results: Lip closure for intraoral bolus containment resulted in no labial escape. Tongue control during bolus hold could not be assessed due to logistical reasons not related to physiologic impairment. Bolus preparation and mastication could not be assessed; solid not given due to logistical reasons or safety concerns unrelated to oral impairment. Bolus transport/lingual motion was with slowed tongue motion. Oral residue was not observed. There was complete oral clearance. Initiation of the pharyngeal swallow occurred when the bolus head was in the pyriform sinuses. Soft palate elevation resulted in no bolus between the soft palate and the pharyngeal wall. Laryngeal elevation was decreased, with partial superior movement of the thyroid cartilage/partial approximation of the arytenoids to the epiglottic petiole. Anterior hyoid excursion demonstrated partial anterior movement. Epiglottic movement resulted in partial inversion. Laryngeal vestibular closure was absent, resulting in a wide column of air/contrast within the laryngeal vestibule at the height of the swallow. Pharyngeal stripping wave was present and complete. Pharyngeal contraction could not be determined due to logistical reasons not related to physiologic impairment. Pharyngoesophageal segment opening was completely distended for complete duration with no obstruction of bolus flow. Tongue base retraction allowed a trace column of contrast or air between the retracted tongue base and the posterior pharyngeal wall. Pharyngeal residue was a collection of residue within or on pharyngeal structures. Esophageal clearance in the upright position could not be assessed due to logistical reasons not related to physiologic impairment. Oral Impairment Score: 5 (absence of score, component 2component 3) Pharyngeal Impairment Score: 7 (absence of score, component 13) Esophageal Impairment Score: --- (absence of score, component 17) Laryngeal Penetration and Aspiration: Aspiration was observed in today's study. Puree, Sinai-thick, Thin Contrast entered the airway, passed below the vocal folds, and were not ejected from the trachea despite effort. ASSESSMENT: This exam was performed by the speech pathologist and the radiologist. Patient was seated upright at 90 degrees in a wheelchair for lateral view and trialed thin (via individual cup sips), nectar thick (via individual cup sips), and puree textures. Patient demonstrated adequate lip closure. Lingual transport was slowed and delayed. There was no oral residual post-swallow. Pharyngeal swallow trigger was also delayed, initiated at the level of the pyriforms. There was no evidence of nasopharyngeal reflux. Partial laryngeal elevation with partial epiglottic inversion and incomplete laryngeal vestibular closure. Wide open airway with adalid aspiration observed on thin, nectar thick, and puree consistencies. Patient elicited a cough, reflex was sometimes immediate and other times delayed. Contrast did not expel from the airway with coughing. Mild retention in the valleculae and pyriforms. Exam was discontinued for patient safety as he would likely continue to aspirate. Liquid Intake Recommendation: NPO Dietary Recommendations: NPO Medication Administration: NPO Please contact the pharmacy regarding appropriate crushable or liquid drug formulations that are available whenever modified delivery is recommended. Recommendation for Speech Therapy: Inpatient Speech Therapy Text Comment: Intake Recommendations: Route: NPO/Alternate Route Diet Grade: IDDSI Levels: Liquid Consistencies: IDDSI Levels: Post-Study Functional Oral Intake Scale (FOIS): 1- No oral intake Adalid aspiration on thin, nectar thick, and puree consistencies. Patient with protective cough reflex, which did not expel contrast from the airway. Exam was discontinued for patient safety. Based on these observations, recommend patient remain NPO at this time, with continued speech therapy during his inpatient stay and repeat-MBSS when appropriate to evaluate for any changes. Suggested Referrals: The patient might benefit from a referral to: Gastroenterology, Nutrition Services, Medical Team Indication for Referral: Evaluate if patient is candidate for temporary vs. longterm alternative means of nutrition/hydration. Therapy Recommendations: Dysphagia Treatment will be continued M-F during inpatient stay, with repeat-MBSS when appropriate [facility] Goals: ? The patient will demonstrate improved swallowing function via repeat clinical evaluation, videoendoscopy/videofluoroscopy and/or patient self-rating scores. ? The patient and/or family will participate in further education for swallowing goals. Frequency/Duration: Daily M-F Date Range for Service Requested: Timeline to reassess: PRN Clinician - Supplemental, Miscellaneous Communication: It is important to note MBSS objective studies are snapshots in time and Patient function might vary with factors such as time of day or concomitant medical conditions. For this reason, the final treatment plan for this patient should rest with their medical care team. Additional recommendations should be considered with the totality of the Patient in mind. Thank for the opportunity to participate in the care of this patient. If you have any questions about the content of this report, please contact the [facility] at [facility]. Education: Education regarding findings from today's study and plans for therapy were provided to Patient only through Verbal Instruction. Screen Printer Helper Clinician/Clinical Fellow: No Supervisory Statement: N/A Speech Language Pathologist: Ileana Reno M.A., CCC-FAMILY PRACTICE MEDICAL DOCTOR
[2023-10-27] MEDS: Dextrose 5 % and 0.45 % NaCl 1,000 ML 80 ML IVCONT (18:05)
[2023-10-27 18:16] LABS: Glucose, Whole Blood 68 mg/dL (60-115)
[2023-10-27 21:33] LABS: Glucose, Whole Blood 60 mg/dL (60-115)
[2023-10-27] MEDS: hydrALAZINE HCl 20 MG/ML VIAL 5 MG IVPUSH (21:37)
[2023-10-27] MEDS: Dextrose 10 % 250 ML 750 ML IV (22:05)
[2023-10-27 22:56] LABS: Glucose, Whole Blood 128 mg/dL (60-115)
[2023-10-27] MEDS: hydrALAZINE HCl 20 MG/ML VIAL 10 MG IVPUSH (23:34)
[2023-10-27] MEDS: LORazepam 2 MG/ML VIAL 0.25 MG IVPUSH (23:35)
[2023-10-28] VITALS (11 sets, daily range): BP systolic 113–188; BP diastolic 52–88; PULSE 69–82; RESP 20; TEMP 36.6–37.7; O2SAT 94–99; BMI 35.3
--- NOTE | 2023-10-28 03:48 | PC.NURSE ---
Addendum entered by Kandi Franklin RN 10/28/23 05:40: pt voided 250mls. per REPORT PROGRAMMER. Addendum entered by Kandi Franklin RN 10/28/23 04:01: Per Alfred Wilson MD let patient rest for now, and attempt later. Original Note: pt a&ox4, agitated, swearing and raising voice at staff. patient states, I just want some water, give me some fucking water or I am leaving. patient refusing vitals as well as bladder scan, patient has not voided since f/c removed. Alfred Wilson MD notified. Patient educated that he cannot get better if he is non-compliant with care plan and reminded that he was not cleared to eat after the failed barium swallow. patient more agitated following conversation. RN left room to let patient calm down and to not further escalate the situation. call eugene within reach, pt refusing to use and instead continues to yell out.
[2023-10-28] MEDS: Piperacillin Sodium/Tazobactam 2.25 GM in 0.9 % Sodium Chloride 50 ML IV ×4 (05:48→23:04)
[2023-10-28] MEDS: Dextrose 5 % and 0.45 % NaCl 1,000 ML 80 ML IVCONT ×2 (05:49→23:48)
[2023-10-28 07:18] LABS: Hematocrit 23.9 % (42.0-52.0); Hemoglobin 7.7 g/dl (14.0-18.0); Mean Corpuscular HGB Conc 32.2 g/dl (31.0-36.0); Mean Corpuscular Hemoglobin 30.2 pg (27.0-33.0); Mean Corpuscular Volume 93.7 fL (80.0-98.0); Red Blood Count 2.55 X10*6/uL (4.60-5.80); Red Cell Distribution Width 13.1 % (11.0-16.0)
[2023-10-28 07:21] LABS: Platelet Count 77 X10*3/uL (160-400)
[2023-10-28 07:25] LABS: Glucose, Whole Blood 292 mg/dL (60-115)
[2023-10-28 07:40] LABS: Anion Gap 19 (12-20); Blood Urea Nitrogen 56 mg/dL (9-16); Calcium 7.5 mg/dL (8.4-10.2); Carbon Dioxide 21 mmol/L (22-29); Chloride 112 mmol/L (96-108); Creatinine Clr Calc Pharmacy 15.9; Estimated Glomerular Filt Rate 9; Glucose Fasting 319 mg/dL (60-99); Potassium 3.9 mmol/L (3.3-5.1); Sodium 148 mmol/L (135-145)
[2023-10-28 09:58] LABS: Glucose, Whole Blood 341 mg/dL (60-115)
[2023-10-28] MEDS: Insulin Lispro 100 UNIT/ML 3 ML VIAL SUBCUT ×4 (10:18→21:22)
[2023-10-28] MEDS: Insulin Glargine,Hum.rec.anlog 100 UNIT/ML 10 ML VIAL 15 UNIT SUBCUT (10:18)
[2023-10-28] MEDS: Heparin Sodium,Porcine 5,000 UNIT/ML VIAL 5000 UNIT SUBCUT ×3 (10:18→21:21)
[2023-10-28 11:30] LABS: Glucose, Whole Blood 329 mg/dL (60-115)
--- NOTE | 2023-10-28 12:09 | P.PNIM_ITS ---
Subjective Subjective Date of Service: 10/28/23 Interval History: hungry Physical Exam 2 Vital Signs: Vital Signs: Last Vital Signs Temp 98.5 F 10/28/23 11:54 Pulse 69 10/28/23 11:54 Resp 20 10/28/23 11:54 BP 180/88 H 10/28/23 11:54 Pulse Ox 98 10/28/23 11:54 O2 Del Method Nasal Cannula 10/28/23 11:54 O2 Flow Rate 2 10/28/23 11:54 Oxygen Flow Rate 2 10/27/23 08:00 BMI result Body Mass Index 35.3 Const: General: ill appearing Neck: Neck: Yes supple Resp: Auscultation: clear to auscultation bilaterally Cardio: Palpation: no palpable S3 Heart sounds: no rubs GI: Palpation (GI): Soft to palpation Auscultation: normal bowel sounds Neuro: Motor exam (neuro): no asterixis Objective Data Active Medications Acetaminophen (Acetaminophen 325 Mg Tablet) 650 mg PO Q6H PRN PRN Reason: pain or fever Last Admin: 10/27/23 12:43 Dose: 650 mg Documented By: ANKIT Heparin Sodium (Porcine) (Heparin Sodium,Porcine 5,000 Unit/Ml Vial) 5,000 unit SUBCUT TID [facility] Last Admin: 10/28/23 10:18 Dose: 5,000 unit Documented By: ANKIT Hydralazine HCl (Hydralazine Hcl 20 Mg/Ml Vial) 10 mg IVPUSH Q6H PRN; Protocol PRN Reason: sbp greater than 180 Last Admin: 10/27/23 23:34 Dose: 10 mg Documented By: ABIMBOLA Comments: give now per Alfred Wilson MD Dextrose (D10) 250 mls @ 750 mls/hr IV Q30M PRN PRN Reason: BG <70 Last Infusion: 10/27/23 22:32 Dose: Infused Documented By: ABIMBOLA Piperacillin Sod/Tazobactam (Sod 2.25 gm/ Sodium Chloride) 50 mls @ 100 mls/hr IV Q6H [facility] Last Infusion: 10/28/23 06:28 Dose: Infused Documented By: ABIMBOLA Dextrose/Sodium Chloride (D51/2ns) 1,000 mls @ 80 mls/hr IVCONT .[id number] [facility] Last Admin: 10/28/23 05:49 Dose: 80 mls/hr Documented By: ABIMBOLA Dextrose (D10) 250 mls @ 750 mls/hr IV Q15M PRN PRN Reason: per Hypoglycemia Standing Ord. Insulin Glargine (Insulin Glargine,Hum.Rec.Anlog 100 Unit/Ml 10 Ml Vial) 15 unit SUBCUT DAILY [facility] Last Admin: 10/28/23 10:18 Dose: 15 unit Documented By: ANKIT Insulin Human Lispro (Insulin Lispro 100 Unit/Ml 3 Ml Vial) 0 unit SUBCUT QIDACHS [facility]; Protocol Last Admin: 10/28/23 10:18 Dose: 6 unit Documented By: ANKIT Ondansetron HCl (Ondansetron Hcl 4 Mg/2 Ml Vial) 4 mg IVPUSH Q6H PRN PRN Reason: Nausea Last Admin: 10/25/23 17:10 Dose: 4 mg Documented By: MARY JANE Labs 10/28/23 07:03 10/28/23 07:03 Labs: Laboratory Results - last 24 hr 10/27/23 10/27/23 10/27/23 16:03 18:04 21:12 MCV MCH MCHC RDW Plt Count MPV Absolute Nucleated RBC Nucleated RBC % (auto) Anion Gap Estim Creat Clear Calc Estimated GFR POC Glucose 83 68 60 Fasting Glucose Calcium 10/27/23 10/28/23 10/28/23 22:50 07:03 07:19 MCV 93.7 MCH 30.2 MCHC 32.2 RDW 13.1 Plt Count 77 L MPV 11.0 Absolute Nucleated RBC 0.000 Nucleated RBC % (auto) 0.0 Anion Gap 19 Estim Creat Clear Calc 15.9 Estimated GFR 9 POC Glucose 128 H 292 H Fasting Glucose 319 H Calcium 7.5 L 10/28/23 10/28/23 09:53 11:26 MCV MCH MCHC RDW Plt Count MPV Absolute Nucleated RBC Nucleated RBC % (auto) Anion Gap Estim Creat Clear Calc Estimated GFR POC Glucose 341 H 329 H Fasting Glucose Calcium Assessment and Plan (1) Renal failure: Status: Acute Plan 53M PMH DM, htn, CKD V, mood disorder admitted 10/24/23 to ICU for DKA, natalia on CKD V with hyperkalemia requiring emergent HD. DKA resolved, hyperkalemia resolved, downgraded to medical floor 10/25/23. course copmlicated by acute hypoxia and fevers (not meeting SIRS) NATALIA on CKD 5 complicated by acute metabolic acidosis,hyperkalemia, and anemia Started on hemodialysis, Nephrology following, nonoliguric but with urinary retention, has Randolph, will start flomax when taking po, continue d51/2ns, monitor unclear at this time if will need ongoing HD on discharge Diabetes with DKA Resolved Basal bolus insulin, monitor Dysphagia NPO for now, failed MBSS, follow up speech therapy Fever without sepsis and acute hypoxic respiratory failure Possible pneumonia, covering with IV Zosyn, cultures negative DVT prophylaxis with heparin sq Full code reason for continued hospitalization: Not taking p.o., natalia Quality Stroke Does the patient have a stroke diagnosis?: No VTE Prior VTE?: No VTE Risk Level:: Medical - moderate - high VTE Device Contraindication: N/A - Device Ordered VTE Drug Contraindication: N/A - Med Ordered
[2023-10-28] MEDS: hydrALAZINE HCl 20 MG/ML VIAL 10 MG IVPUSH ×2 (12:21→21:22)
--- NOTE | 2023-10-28 12:58 | P.PNNP_ITS ---
Subjective Subjective Date of Service: 10/28/23 Interval history: hungry Physical Exam 2 Vital Signs: Vital Signs: Last Vital Signs Temp 98.5 F 10/28/23 11:54 Pulse 69 10/28/23 11:54 Resp 20 10/28/23 11:54 BP 180/88 H 10/28/23 12:21 Pulse Ox 98 10/28/23 11:54 O2 Del Method Nasal Cannula 10/28/23 11:54 O2 Flow Rate 2 10/28/23 11:54 Oxygen Flow Rate 2 10/27/23 08:00 BMI result Body Mass Index 35.3 Const: General: ill appearing Neck: Neck: Yes supple Resp: Auscultation: clear to auscultation bilaterally Cardio: Palpation: no palpable S3 Heart sounds: no rubs GI: Palpation (GI): Soft to palpation Auscultation: normal bowel sounds Neuro: Motor exam (neuro): no asterixis Objective Data Labs 10/28/23 07:03 10/28/23 07:03 Labs: Laboratory Results - last 24 hr 10/27/23 10/27/23 10/27/23 16:03 18:04 21:12 WBC RBC Hgb Hct MCV MCH MCHC RDW Plt Count MPV Absolute Nucleated RBC Nucleated RBC % (auto) Sodium Potassium Chloride Carbon Dioxide Anion Gap BUN Creatinine Estim Creat Clear Calc Estimated GFR POC Glucose 83 68 60 Fasting Glucose Calcium 10/27/23 10/28/23 10/28/23 22:50 07:03 07:19 WBC 6.0 RBC 2.55 L Hgb 7.7 L Hct 23.9 L MCV 93.7 MCH 30.2 MCHC 32.2 RDW 13.1 Plt Count 77 L MPV 11.0 Absolute Nucleated RBC 0.000 Nucleated RBC % (auto) 0.0 Sodium 148 H Potassium 3.9 Chloride 112 H Carbon Dioxide 21 L Anion Gap 19 BUN 56 H Creatinine 6.28 H* Estim Creat Clear Calc 15.9 Estimated GFR 9 POC Glucose 128 H 292 H Fasting Glucose 319 H Calcium 7.5 L 10/28/23 10/28/23 09:53 11:26 WBC RBC Hgb Hct MCV MCH MCHC RDW Plt Count MPV Absolute Nucleated RBC Nucleated RBC % (auto) Sodium Potassium Chloride Carbon Dioxide Anion Gap BUN Creatinine Estim Creat Clear Calc Estimated GFR POC Glucose 341 H 329 H Fasting Glucose Calcium Microbiology Microbiology Results: Microbiology 10/24/23 19:12 Blood - Venous Blood Culture - Preliminary No growth after 48 hours. 10/24/23 18:51 Blood - Venous Blood Culture - Preliminary No growth after 48 hours. Procedures Date of Service Date of Service: 10/28/23 Assessment & Plan Assessment and plan (1) Acute on chronic kidney failure: Status: Acute (2) Acute hyperkalemia: Status: Acute Plan 53-year-old man with stage IV CKD admitted with severe hyperkalemia due to diabetic ketoacidosis. He underwent emergency dialysis in potassium stance corrected. He is currently nonoliguric. Blood sugar is better controlled. I would watch him over the next 24-48 hours to see if there is any meaningful renal recovery. If not he would require ongoing dialysis and I will arrange for the same. Severe anemia due to CKD. Iron stores were adequate in September. I will administer a dose of Epogen today. Mild metabolic acidosis Mild hypernatremia due to free water deficit needs to increase p.o. water intake. Agree with half-normal saline. Time Spent With Patient Time: Total time managing care of this patient today ____ minutes. Progress Note: Quality Stroke Does the patient have a stroke diagnosis?: No
--- NOTE | 2023-10-28 13:27 | MHC.SPEECHCO ---
PRE BILLING CLINICIAN spoke with Pt about results and rationale for NPO status. Pt now scheduled for a Neck CT to rule out soft tissue abnormality. PRE BILLING CLINICIAN will continue to follow.
[2023-10-28 16:02] LABS: Glucose, Whole Blood 183 mg/dL (60-115)
--- NOTE | 2023-10-28 17:55 | PM.EVENT ---
Event Note Date of Service: 10/28/23 Event Note: called by radiology regarding findings of acute cvas and chiari malformation seen on CTH. discussed with neurology, no need for emergent interventions, will obtiain MRI head and cervical spine and neuro to see in AM. Time Spent With Patient Time: Total time managing care of this patient today ____ minutes.
[2023-10-28 21:13] LABS: Glucose, Whole Blood 155 mg/dL (60-115)
[2023-10-28] MEDS: diphenhydrAMINE HCL 50 MG/ML VIAL 25 MG IVPUSH (23:06)
[2023-10-29] VITALS (8 sets, daily range): BP systolic 122–196; BP diastolic 48–84; PULSE 63–74; RESP 18–20; TEMP 36.3–36.9; O2SAT 95–98; BMI 35.1
[2023-10-29] MEDS: Piperacillin Sodium/Tazobactam 2.25 GM in 0.9 % Sodium Chloride 50 ML IV ×4 (05:48→23:35)
--- NOTE | 2023-10-29 07:00 | CA_ITS ---
Transthoracic Echocardiogram Patient (Last, First, Middle): Howard Chino, Gender: Male Date of : 1970 Age: 53 Procedure Date: 10/29/2023 Procedure Type: Transthoracic Echocardiogram Location[place] [facility] [place] Height: 172.72 cm Weight: 104.78 kg BSA: 2.17 m2 Heart Rate: bpm BP: 176 / 52 mmHg Hydrologic Engineer: TO Referring MD: Sal Barreto MD Right Of Way Manager: Reginald Leiva MD Symptoms: cva Study Quality: Fair/Contrast ECG Rhythm: Sinus Conclusions: - 1. Normal LV ejection fraction at 65-70% with impaired relaxation filling pattern 2. Moderately dilated left atrium 3. Fibrocalcific aortic valve changes noted with [id number] aortic regurgitation 4. Moderate mitral annular calcification noted 5. Mildly dilated ascending aorta at 4 cm with mild atherosclerotic changes noted 6. No pericardial effusion Findings Procedure Information Contrast agent, definity, is being given per protocol without apparent complications. Left Ventricle Normal left ventricular size, thickness, and systolic function. The visually estimated ejection fraction is between 65-70%. Spectral Doppler is indicative of an impaired relaxation filling pattern. E/E prime ratio is between 8 and 15 consistent with indeterminate filling pressures. Right Ventricle Normal right ventricular cavity size and systolic function. Atria The left atrium is moderately dilated. There is no evidence of interatrial shunt by agitated saline. The right atrium is likely dilated. Aortic Valve The aortic valve was not well visualized. There is mild calcification of the aortic valve. There is no aortic valve stenosis. There is mild to moderate aortic valve regurgitation. Mitral Valve The mitral valve was not well visualized. There is mild anterior and moderate posterior mitral leaflet thickening. There is moderate mitral annular calcification. There is trace mitral valve regurgitation. There is no mitral valve stenosis. Pulmonic Valve The pulmonic valve was not well visualized. Tricuspid Valve Likely normal tricuspid valve structure and function. There is trace tricuspid valve regurgitation. The right ventricular systolic pressure is normal. The right ventricular systolic pressure is 19 mmHg. Normal right atrial pressure. There is no evidence of pulmonary hypertension. Great Vessels The pulmonary artery was not well visualized. There is mild dilatation of the ascending aorta measuring 4.00 cm. Small plaque is seen in the sino tubular ridge and ascending aorta. Venous The inferior vena cava is normal in size and collapses greater than 50% with inspiration. Pericardium/Pleural There is no evidence of pericardial effusion. Prior Study Comparison No prior study available for comparison. Recommendations, Care & Conclusions Consider a ALEXA if clinically appropriate. Measurements 2D Linear Measurements IVSd: 1.03 0.6-0.9/0.6-1.0 cm LVIDd: 5.38 3.9-5.3/4.2-5.9 cm LVIDd Index: 2.48 2.4-3.2/2.2-3.1 cm/m2 LVIDs: 3.31 2.0-3.6 cm LVPWd: 0.98 0.7-1.1 cm LA Diam: 4.20 2.7-3.8/3.0-4.0 cm LAIDs Index: 1.94 1.5-2.3 cm/m2 LV Mass: 257.95 67-162/88-224 g LV Mass Index: 118.87 43-95/49-115 g/m2 LVOT Diam: 2.30 3.0+(-)1.3 cm 2D Systolic Function EF 4C: 68.50 >55% EF 2C: 64.10 >55% EF BiP: 67.10 >55% Mitral Valve MV VTI: 0.41 MV Pk Christopher: 1.55 MV Mn Christopher: 0.78 MV Pk Grad: 10.00 MV Mn Grad: 3.00 MV Pk E: 1.12 MV PK A: 0.74 MV Decel Time: 276.00 E/A: 1.50 E'Lateral: 10.30 E'Medial: 7.40 E/E' Med: 15.10 E/E' Lat: 10.90 PHT: 81.00 MVA PHT: 2.72 MVA Continuity: 3.09 Decel [place]: 4.06 Aortic Valve AoV Pk Christopher: 1.87 AoV Mn Christopher: 1.21 AoV VTI: 0.40 AoV Pk Grad: 14.00 Aov Mn Grad: 6.00 NYASIA Cont.VTI: 3.20 AI Pk Christopher: 4.98 AI VTI: 2.27 AI [place]: 3.33 AI Alias Christopher: 0.37 AI RV - PISA: 104.00 ERO - PISA: 46.00 LVOT LVOT Pk Chirstopher: 1.34 LVOT Mn Christopher: 0.89 LVOT VTI: 0.31 LVOT Pk Grad: 7.00 LVOT Mn Grad: 4.00 LVOT Diam: 2.30 LVOT Area: 4.15 Diastolic Function MV Pk E: 1.12 MV Pk A: 0.74 E/A: 1.50 E'Medial: 7.40 E/E' Med: 15.10 E' Laterial: 10.30 E/E' Lat: 10.90 Right Ventricle TAPSE (mm): 35.00 TVS' Christopher: 16.00 Tricuspid Valve RA Press: 3.00 RVSP: 19.00 Great Vessels Aorta Ao Asc: 4.00 2.1-3.4 cm Ao Arch: 2.60 Updated in Other Vendor System with Status of Final Reginald Leiva MD electronically signed on 10/29/2023 1:26:44 PM with status of Final
[2023-10-29] MEDS: Insulin Glargine,Hum.rec.anlog 100 UNIT/ML 10 ML VIAL 25 UNIT SUBCUT (08:03)
[2023-10-29] MEDS: Insulin Lispro 100 UNIT/ML 3 ML VIAL SUBCUT ×3 (08:03→16:27)
[2023-10-29] MEDS: Heparin Sodium,Porcine 5,000 UNIT/ML VIAL 5000 UNIT SUBCUT ×3 (08:04→21:47)
[2023-10-29 08:06] LABS: Glucose, Whole Blood 379 mg/dL (60-115)
[2023-10-29 09:11] LABS: Hematocrit 25.1 % (42.0-52.0); Hemoglobin 7.8 g/dl (14.0-18.0); Mean Corpuscular HGB Conc 31.1 g/dl (31.0-36.0); Mean Corpuscular Hemoglobin 30.1 pg (27.0-33.0); Mean Corpuscular Volume 96.9 fL (80.0-98.0); Mean Platelet Volume 11.3 fL (9.4-12.4); Platelet Count 103 X10*3/uL (160-400); Red Blood Count 2.59 X10*6/uL (4.60-5.80); Red Cell Distribution Width 13.1 % (11.0-16.0); White Blood Count 6.1 X10*3/uL (4.8-10.8)
[2023-10-29 09:54] LABS: Anion Gap 18 (12-20); Blood Urea Nitrogen 55 mg/dL (9-16); Calcium 7.7 mg/dL (8.4-10.2); Carbon Dioxide 21 mmol/L (22-29); Chloride 113 mmol/L (96-108); Cholesterol 103 mg/dL (<200); HDL Cholesterol 35 mg/dL (>40); LDL Cholesterol Calculated 35 mg/dL (<100); Potassium 3.9 mmol/L (3.3-5.1); Sodium 148 mmol/L (135-145); Triglycerides 167 mg/dL (<150)
[2023-10-29 09:58] LABS: Estimated Glomerular Filt Rate 9; Glucose Fasting 427 mg/dL (60-99)
[2023-10-29] MEDS: Dextrose 5 % 1,000 ML 100 ML IVCONT (11:58)
[2023-10-29 12:10] LABS: Glucose, Whole Blood 291 mg/dL (60-115)
[2023-10-29] MEDS: hydrALAZINE HCl 20 MG/ML VIAL 10 MG IVPUSH (12:46)
--- NOTE | 2023-10-29 13:41 | PM.NEUROCN ---
History of Present Illness Data of Consult Service Date: 10/29/23 Primary Care Provider: Michael Garcia MD HPI Reason for consult: stroke on Ct, dysphagia The patient is a 53-year-old male with a past medical history of hypertension, diabetes mellitus, neuropathy, chronic kidney disease? (baseline creatinine 5),? hyperlipidemia, anemia, anxiety, depression, who presented to the emergency department with nausea and vomiting.? Patient reported? feeling weak, tired, nausea vomiting and diarrhea starting yesterday.? Reported? due to being sick did not take his insulin. He also complained of dysphagia. Ct of neck shows a large left occipital an dmedial temporal infarct from DIRECTOR OF PATIENT SAFETY occlusion. MRI Was personally reviewed and shows a large left posterior cerebral artery ischemic infarct involving the medial aspect of the inferior temporal lobe and the occipital lobe and a separate acute infarct in the right frontoparietal white matter in a different vascular territory Review of Systems Review of Systems: per HPI Yes all other systems are reviewed and are negative Constitutional: Constitutional: Denies fever(s) and Denies weight loss Cardiovascular: Cardiovascular: Denies chest pain Respiratory: Respiratory: Denies cough and Denies hemoptysis Gastrointestinal: Gastrointestinal: Denies abdominal pain, Denies diarrhea and Denies nausea Musculoskeletal: Musculoskeletal: Denies back pain Neurologic: Denies focal weakness [facility] Past Medical History Medical History (Updated 10/29/23 @ 15:53 by Laura Vick MD) Metabolic acidosis Right foot ulcer Anxiety History of foot ulcer Obesity (BMI 30-39.9) Depression Rotator cuff arthropathy of left shoulder Vitamin D deficiency Allergic rhinitis Anemia Pure hypercholesterolemia Benign essential hypertension Diabetic polyneuropathy Type 2 diabetes mellitus with diabetic chronic kidney disease Erectile dysfunction Type 2 diabetes mellitus with hyperglycemia, with long-term current use of insulin Type 2 diabetes mellitus with diabetic polyneuropathy Type 2 diabetes mellitus with chronic kidney disease 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 LDL goal <70 Family History Family History Father Lung cancer Mother Hypertension Coronary artery disease CVD (cardiovascular disease) TIA (transient ischemic attack) Sister Diabetes Maternal Uncle Diabetes Other Mental health problem Surgical History Surgical History History of nasal surgery Social History Social History Household Members: Unknown / Unable to assess Housing: Unknown / Unable to assess Do you presently have visiting nurse or other home services: No Alcohol intake: current Alcohol intake frequency: holidays/special occasions only Comment: sister in room Patient Tobacco Use Status: Never used Tobacco Smoked in Last 30 Days: No e-Cigarette/Vaping Use: Never Used Second Hand Smoke Exposure: Yes Use of substances other than those prescribed or required for medical reasons: No Currently Displaying Signs/Symptoms of Drug Intoxication Withdrawal: No Advance Directives: No Advance Directives Information Provided: No Do you have a plan to hurt others: No Plan Recently lost weight without trying: No How much weight loss: Unsure Eating poorly because of decreased appetite: No Nutrition screen score: 2 Nutrition Risks: Diabetes new onset/Uncontrolled Poor oral hygiene: No service: No Current occupational status: unemployed Cognitive needs: No Hearing needs: No Vision needs: No Meds Allergies Allergy/AdvReac Type Severity Reaction Status Date / Time No Known Allergies Allergy Verified 10/24/23 18:33 Active Medications: Current Medications Acetaminophen (Acetaminophen 325 Mg Tablet) 650 mg PO Q6H PRN PRN Reason: pain or fever Last Admin: 10/27/23 12:43 Dose: 650 mg Aspirin (Aspirin Enteric Coated 81 Mg Tablet.Dr) 81 mg PO DAILY [facility] Last Admin: 10/29/23 11:54 Dose: Not Given Atorvastatin Calcium (Atorvastatin Calcium 80 Mg Tablet) 80 mg PO BEDTIME [facility] Last Admin: 10/28/23 21:24 Dose: Not Given Heparin Sodium (Porcine) (Heparin Sodium,Porcine 5,000 Unit/Ml Vial) 5,000 unit SUBCUT TID [facility] Last Admin: 10/29/23 08:04 Dose: 5,000 unit Hydralazine HCl (Hydralazine Hcl 20 Mg/Ml Vial) 10 mg IVPUSH Q6H PRN; Protocol PRN Reason: sbp greater than 180 Last Admin: 10/29/23 12:46 Dose: 10 mg Dextrose (D10) 250 mls @ 750 mls/hr IV Q30M PRN PRN Reason: BG <70 Last Infusion: 10/27/23 22:32 Dose: Infused Piperacillin Sod/Tazobactam (Sod 2.25 gm/ Sodium Chloride) 50 mls @ 100 mls/hr IV Q6H [facility] Last Infusion: 10/29/23 12:27 Dose: Infused Dextrose (D10) 250 mls @ 750 mls/hr IV Q15M PRN PRN Reason: per Hypoglycemia Standing Ord. Dextrose (D5w) 1,000 mls @ 100 mls/hr IVCONT .Q10H [facility] Last Admin: 10/29/23 11:58 Dose: 100 mls/hr Insulin Glargine (Insulin Glargine,Hum.Rec.Anlog 100 Unit/Ml 10 Ml Vial) 25 unit SUBCUT DAILY [facility] Last Admin: 10/29/23 08:03 Dose: 25 unit Insulin Human Lispro (Insulin Lispro 100 Unit/Ml 3 Ml Vial) 0 unit SUBCUT QIDACHS [facility]; Protocol Last Admin: 10/29/23 12:11 Dose: 6 unit Ondansetron HCl (Ondansetron Hcl 4 Mg/2 Ml Vial) 4 mg IVPUSH Q6H PRN PRN Reason: Nausea Last Admin: 10/25/23 17:10 Dose: 4 mg Home Medications ?Medication ?Instructions ?Recorded ?Confirmed ?Last Taken ?Type hydralazine 50 mg tablet 50 mg PO TID 10/24/23 10/24/23 Unknown History oxycodone 5 mg tablet 5 mg PO TID PRN severe pain 10/24/23 Unknown History Physical Exam Vital Signs: Vital Signs: Last Vital Signs Temp 97.7 F 10/29/23 12:00 Pulse 72 10/29/23 12:00 Resp 20 10/29/23 12:00 BP 196/52 H 10/29/23 12:46 Pulse Ox 98 10/29/23 12:00 O2 Del Method Nasal Cannula 10/29/23 12:00 O2 Flow Rate 2 10/29/23 12:00 Oxygen Flow Rate 2 10/27/23 08:00 BMI result Body Mass Index 35.1 Const: General: no acute distress, alert, awake and ill appearing Eyes: Sclerae: sclerae normal EOM: EOMs intact bilaterally Neck: Neck: Yes no lymphadenopathy, Yes trachea midline and Yes supple Resp: Effort & Inspection: normal respiratory effort and no respiratory distress Auscultation: clear to auscultation bilaterally Cardio: Palpation: no palpable S3 Rate: regular rate Rhythm: regular rhythm Heart sounds: no gallops, no murmurs and no rubs GI: Palpation (GI): Soft to palpation and Other GI palpation findings present ( Nontender) Auscultation: normal bowel sounds Neuro: Other: He is alert and oriented x3. He has a right homonymous hemianopsia. No facial asymmetry. No nystagmus on lateral gaze with full extraocular movements. Tongue and palate are movements appear normal, however when taking sips of water he coughs and the couple of times, suggesting that mild degree of the laryngeal penetration from his bilateral strokes. He has a pronation and done word and drift of the left upper extremity with left upper extremity weakness graded at 5 minus/5 proximally and 4+/5 distally. Lower extremity streength is normal. Right-sided strength is normal. Gait was not tested. Motor exam (neuro): no asterixis Extrem: General: No clubbing, No cyanosis and Yes edema (1+ bilateral) Results Labs 10/29/23 08:39 10/29/23 08:39 Labs: Short CBC 10/29/23 Range/Units 08:39 WBC 6.1 (4.8-10.8) X10*3/uL Hgb 7.8 L (14.0-18.0) g/dl Hct 25.1 L (42.0-52.0) % Plt Count 103 L D (160-400) X10*3/uL BMP 10/29/23 08:39 Sodium 148 H Potassium 3.9 Chloride 113 H Carbon Dioxide 21 L BUN 55 H Creatinine 6.65 H* Calcium 7.7 L Microbiology Microbiology Results: Microbiology 10/24/23 19:12 Blood - Venous Blood Culture - Preliminary No growth after 48 hours. 10/24/23 18:51 Blood - Venous Blood Culture - Preliminary No growth after 48 hours. 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 Recommendations: Echocardiogram including bubble study. Continuing evaluation by speech and swallowing in advancing the diet as tolerated for his aspiration. PT, OT. Long-term cardiac monitoring for atrial fibrillation. Aspirin 81 mg and clopidogrel 75 mg for now. We'll hold off CTA or MRA for now because of his impaired renal function (2) Acute on chronic kidney failure: Qualifiers: Acute renal failure type: unspecified Chronic kidney disease stage: stage 5, not on chronic dialysis Qualified Code(s): N17.9 - Acute kidney failure, unspecified; N18.5 - Chronic kidney disease, stage 5 Status: Acute (3) Acute hyperkalemia: Status: Acute Plan 53-year-old man with stage IV CKD admitted with severe hyperkalemia due to diabetic ketoacidosis. He underwent emergency dialysis in potassium stance corrected. He is currently nonoliguric. Blood sugar is better controlled. I would watch him over the next 24-48 hours to see if there is any meaningful renal recovery. If not he would require ongoing dialysis and I will arrange for the same. Severe anemia due to CKD. Iron stores were adequate in September. I will administer a dose of Epogen today. Mild metabolic acidosis Mild hypernatremia due to free water deficit needs to increase p.o. water intake. Agree with half-normal saline. Procedures Date of Service Date of Service: 10/29/23
--- NOTE | 2023-10-29 14:01 | MHC.CLN ---
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
[2023-10-29 15:48] LABS: Glucose, Whole Blood 199 mg/dL (60-115)
--- NOTE | 2023-10-29 15:58 | P.PNIM_ITS ---
Subjective Subjective Date of Service: 10/29/23 Interval History: Seen and evaluated this morning having significant right sided weakness unable to tolerate PO MRI showing multiple acute strokes primarily in the left posterior cerebral territory and one in the right hemisphere Review of Systems Review of Systems: Yes all other systems are reviewed and are negative Physical Exam 2 Vital Signs: Vital Signs: Last Vital Signs Temp 97.5 F 10/29/23 14:52 Pulse 74 10/29/23 14:52 Resp 20 10/29/23 14:52 BP 122/55 L 10/29/23 14:52 Pulse Ox 98 10/29/23 14:52 O2 Del Method Room Air 10/29/23 14:52 O2 Flow Rate 2 10/29/23 12:00 Oxygen Flow Rate 2 10/27/23 08:00 BMI result Body Mass Index 35.1 Const: Other: Constitutional : Awake, interactive, not in distress Neck : Normal inspection, Supple Cardiovascular : RRR, no JVP, no lower extremity edema Respiratory : good bilateral air entry, no crackles, wheezes or rhonchi Gastrointestinal: soft, lax, Normal bowel sounds, Non tender Skin : Warm, Dry Neurological : Alert & oriented x3, right homonymous hemianopsia. 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 Atorvastatin Calcium (Atorvastatin Calcium 80 Mg Tablet) 80 mg PO BEDTIME [facility] Last Admin: 10/28/23 21:24 Dose: Not Given Documented By: LORRAINE Non-Admin Reason: NPO Heparin Sodium (Porcine) (Heparin Sodium,Porcine 5,000 Unit/Ml Vial) 5,000 unit SUBCUT TID [facility] Last Admin: 10/29/23 08:04 Dose: 5,000 unit Documented By: ANKIT Hydralazine HCl (Hydralazine Hcl 20 Mg/Ml Vial) 10 mg IVPUSH Q6H PRN; Protocol PRN Reason: sbp greater than 180 Last Admin: 10/29/23 12:46 Dose: 10 mg Documented By: ANKIT Dextrose (D10) 250 mls @ 750 mls/hr IV Q30M PRN PRN Reason: BG <70 Last Infusion: 10/27/23 22:32 Dose: Infused Documented By: ABIMBOLA Piperacillin Sod/Tazobactam (Sod 2.25 gm/ Sodium Chloride) 50 mls @ 100 mls/hr IV Q6H [facility] Last Infusion: 10/29/23 12:27 Dose: Infused Documented By: ANKIT Dextrose (D10) 250 mls @ 750 mls/hr IV Q15M PRN PRN Reason: per Hypoglycemia Standing Ord. Dextrose (D5w) 1,000 mls @ 100 mls/hr IVCONT .Q10H [facility] Last Admin: 10/29/23 11:58 Dose: 100 mls/hr Documented By: ANKIT Insulin Glargine (Insulin Glargine,Hum.Rec.Anlog 100 Unit/Ml 10 Ml Vial) 25 unit SUBCUT DAILY [facility] Last Admin: 10/29/23 08:03 Dose: 25 unit Documented By: ANKIT Insulin Human Lispro (Insulin Lispro 100 Unit/Ml 3 Ml Vial) 0 unit SUBCUT QIDACHS [facility]; Protocol Last Admin: 10/29/23 12:11 Dose: 6 unit Documented By: ANKIT Ondansetron HCl (Ondansetron Hcl 4 Mg/2 Ml Vial) 4 mg IVPUSH Q6H PRN PRN Reason: Nausea Last Admin: 10/25/23 17:10 Dose: 4 mg Documented By: MARY JANE Labs 10/29/23 08:39 10/29/23 08:39 Labs: Laboratory Results - last 24 hr 10/26/23 10/28/23 10/28/23 05:43 15:58 21:08 MCV MCH MCHC RDW Plt Count MPV Absolute Nucleated RBC Nucleated RBC % (auto) Smear Path Review SEE NOTE Anion Gap Estim Creat Clear Calc Estimated GFR POC Glucose 183 H 155 H Fasting Glucose Calcium Triglycerides Cholesterol LDL Cholesterol, Calc HDL Cholesterol 10/29/23 10/29/23 10/29/23 07:48 08:39 12:06 MCV 96.9 MCH 30.1 MCHC 31.1 RDW 13.1 Plt Count 103 L D MPV 11.3 Absolute Nucleated RBC 0.000 Nucleated RBC % (auto) 0.0 Smear Path Review Anion Gap 18 Estim Creat Clear Calc 15.0 Estimated GFR 9 POC Glucose 379 H* 291 H Fasting Glucose 427 H* Calcium 7.7 L Triglycerides 167 H Cholesterol 103 LDL Cholesterol, Calc 35 HDL Cholesterol 35 L 10/29/23 14:56 MCV MCH MCHC RDW Plt Count MPV Absolute Nucleated RBC Nucleated RBC % (auto) Smear Path Review Anion Gap Estim Creat Clear Calc Estimated GFR POC Glucose 199 H Fasting Glucose Calcium Triglycerides Cholesterol LDL Cholesterol, Calc HDL Cholesterol Assessment and Plan (1) 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 DKA resolved, hyperkalemia resolved, downgraded to medical floor 10/25/23. course copmlicated by acute hypoxia and fevers (not meeting SIRS) Acute embolic stroke Noted on CT scan, confirmed by MRI Ptient unable to swallow now. 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 Neurology followig: ASA and Plavix consider NG tube vs PPN for now PT\OT NATALIA on CKD 5 complicated by acute metabolic acidosis,hyperkalemia, and anemia Started on hemodialysis, Nephrology following, nonoliguric but with urinary retention, has Randolph, will start flomax when taking po, continue d5w nephro to decide on dialysis tomorrow Diabetes with DKA Resolved Basal bolus insulin, monitor Dysphagia NPO for now, failed MBSS, follow up speech therapy Fever without sepsis and acute hypoxic respiratory failure Possible pneumonia, covering with IV Zosyn, cultures negative DVT prophylaxis with heparin sq Full code reason for continued hospitalization: Not taking p.o., natalia, Acute stroke Quality Stroke Does the patient have a stroke diagnosis?: No VTE Prior VTE?: No VTE Risk Level:: Medical - moderate - high VTE Device Contraindication: N/A - Device Ordered VTE Drug Contraindication: N/A - Med Ordered
--- NOTE | 2023-10-29 16:11 | MHC.STROKE ---
Pt awake, alert and oriented x 3. Tongue midline. Speech clear, intelligible. mild left sided droop appreciated, weakness noted to left arm/leg. Peripheral vision to right side noted to be affected. This RN spent a long time with patient and family discussing stroke care/interventions/plan Pt tearful, angry with diagnosis at times. Pt reports that he is frustrated that he cannot drink. Dr. Vick to bedside for evaluation and discussed results of MRI with patient. Stroke Education booklet reviewed. Education provided to family as well. Will continue to assist as needed.
--- NOTE | 2023-10-29 16:14 | MHC.SLORD ---
Speech Language Pathology Order Status: Per conversation w/ RN and BAND TIER team, BAND TIER tx on hold. Patient presented w/ kati aspiration on MBS 10/26 on all trialed consistencies. Discussed ?PPN or other supplemental nutrition w/ RN, , and RD. Patient undergoing testing for evolving infarct. BAND TIER to continue to follow for dysphagia tx.
--- NOTE | 2023-10-29 16:20 | MHC.CM.PN ---
PT rec acute rehab. This CM went to meet with pt to discuss, pt not in the room at the time. Acute rehab referrals placed in [facility].
--- NOTE | 2023-10-29 20:24 | P.PNNP_ITS ---
Subjective Subjective Date of Service: 10/29/23 Interval history: Seen and evaluated this morning ; Having significant right sided weakness ; MRI showing multiple acute strokes primarily in the left posterior cerebral territory and one in the right hemisphere ; D/W family Physical Exam 2 Vital Signs: Vital Signs: Last Vital Signs Temp 98.5 F 10/29/23 20:00 Pulse 68 10/29/23 20:00 Resp 18 10/29/23 20:00 BP 160/48 H 10/29/23 20:00 Pulse Ox 98 10/29/23 20:00 O2 Del Method Nasal Cannula 10/29/23 20:00 O2 Flow Rate 2 10/29/23 12:00 Oxygen Flow Rate 2 10/27/23 08:00 BMI result Body Mass Index 35.1 Const: General: comfortable and no acute distress O rientation/consciousness: patient oriented x3 HEENT: Head: Yes normocephalic Mouth: Normal oral and palatal mucosa present Eyes: EOM: EOMs intact bilaterally Neck: Neck: Yes supple Resp: Auscultation: clear to auscultation bilaterally Cardio: Jugular venous distension: no JVD Rate: regular rate GI: Palpation (GI): Soft to palpation Auscultation: normal bowel sounds : General: Yes no CVA tenderness Back/Spine/Pelvis: Back: no CVA tenderness Neuro: General: patient oriented x3 Objective Data Labs 10/29/23 08:39 10/29/23 08:39 Labs: Laboratory Results - last 24 hr 10/28/23 10/29/23 10/29/23 21:08 07:48 08:39 WBC 6.1 RBC 2.59 L Hgb 7.8 L Hct 25.1 L MCV 96.9 MCH 30.1 MCHC 31.1 RDW 13.1 Plt Count 103 L D MPV 11.3 Absolute Nucleated RBC 0.000 Nucleated RBC % (auto) 0.0 Sodium 148 H Potassium 3.9 Chloride 113 H Carbon Dioxide 21 L Anion Gap 18 BUN 55 H Creatinine 6.65 H* Estim Creat Clear Calc 15.0 Estimated GFR 9 POC Glucose 155 H 379 H* Fasting Glucose 427 H* Calcium 7.7 L Triglycerides 167 H Cholesterol 103 LDL Cholesterol, Calc 35 HDL Cholesterol 35 L 10/29/23 10/29/23 12:06 14:56 WBC RBC Hgb Hct MCV MCH MCHC RDW Plt Count MPV Absolute Nucleated RBC Nucleated RBC % (auto) Sodium Potassium Chloride Carbon Dioxide Anion Gap BUN Creatinine Estim Creat Clear Calc Estimated GFR POC Glucose 291 H 199 H Fasting Glucose Calcium Triglycerides Cholesterol LDL Cholesterol, Calc HDL Cholesterol Microbiology Microbiology Results: Microbiology 10/24/23 19:12 Blood - Venous Blood Culture - Preliminary No growth after 48 hours. 10/24/23 18:51 Blood - Venous Blood Culture - Preliminary No growth after 48 hours. Procedures Date of Service Date of Service: 10/29/23 Assessment & Plan Assessment and plan (1) Acute on chronic kidney failure: Status: Acute Plan 53-year-old man with stage IV CKD admitted with severe hyperkalemia due to diabetic ketoacidosis. He underwent emergency dialysis ; nonoliguric. Shall watch him over the next 24-48 hours to see if there is any meaningful renal recovery If not, he would require ongoing dialysis and we shall arrange outpatient HD. Labs AM to decide whether he needs HD tomorrow Progress Note: Quality Stroke Does the patient have a stroke diagnosis?: No
[2023-10-29 20:45] LABS: Glucose, Whole Blood 145 mg/dL (60-115)
[2023-10-29] MEDS: Lidocaine 4 % Patch ADH..PATCH 1 PATCH TRANSDERMA (21:46)
[2023-10-30] VITALS (15 sets, daily range): BP systolic 159–192; BP diastolic 42–86; PULSE 60–69; RESP 16–20; TEMP 36.4–37.7; O2SAT 91–99
[2023-10-30] MEDS: diphenhydrAMINE HCL 50 MG/ML VIAL 25 MG IVPUSH ×2 (01:29→22:21)
[2023-10-30] MEDS: Dextrose 5 % 1,000 ML 100 ML IVCONT ×2 (03:30→12:09)
[2023-10-30] MEDS: Piperacillin Sodium/Tazobactam 2.25 GM in 0.9 % Sodium Chloride 50 ML IV ×3 (05:45→17:46)
[2023-10-30 06:20] LABS: Prothrombin Time 12.2 SEC (11.1-13.3)
[2023-10-30 06:27] LABS: Hemoglobin 7.8 g/dl (14.0-18.0); Mean Corpuscular HGB Conc 31.2 g/dl (31.0-36.0); Mean Corpuscular Hemoglobin 29.9 pg (27.0-33.0); Mean Corpuscular Volume 95.8 fL (80.0-98.0); Platelet Count 117 X10*3/uL (160-400); Red Blood Count 2.61 X10*6/uL (4.60-5.80); Red Cell Distribution Width 13.1 % (11.0-16.0); White Blood Count 5.4 X10*3/uL (4.8-10.8)
[2023-10-30 06:35] LABS: Alanine Aminotransferase 18 U/L (0-40); Albumin Level 3.1 g/dL (3.5-5.0); Alkaline Phosphatase 57 U/L (39-117); Anion Gap 16 (12-20); Aspartate Amino Transferase 12 U/L (5-37); Bilirubin Direct 0.2 mg/dL (0.0-0.5); Bilirubin Total 0.5 mg/dL (0.0-1.0); Blood Urea Nitrogen 47 mg/dL (9-16); Carbon Dioxide 21 mmol/L (22-29); Chloride 116 mmol/L (96-108); Creatinine Clr Calc Pharmacy 16.4; Estimated Glomerular Filt Rate 10; Glucose Random 166 mg/dL (60-115); Magnesium 1.6 mg/dL (1.6-2.6); Phosphorus 3.1 mg/dL (2.7-4.5); Potassium 3.3 mmol/L (3.3-5.1); Sodium 150 mmol/L (135-145); Total Protein 5.4 g/dL (6.5-8.0)
[2023-10-30 07:30] LABS: Glucose, Whole Blood 150 mg/dL (60-115)
[2023-10-30 07:34] LABS: Estimated Average Glucose 194 mg/dL; Hemoglobin A1c % 8.4 % (<6.0)
[2023-10-30] MEDS: Heparin Sodium,Porcine 5,000 UNIT/ML VIAL 5000 UNIT SUBCUT ×2 (08:53→21:05)
[2023-10-30] MEDS: Insulin Glargine,Hum.rec.anlog 100 UNIT/ML 10 ML VIAL 25 UNIT SUBCUT (08:54)
[2023-10-30] MEDS: hydrALAZINE HCl 20 MG/ML VIAL 5 MG IVPUSH ×3 (08:55→20:59)
[2023-10-30] MEDS: Lidocaine 4 % Patch ADH..PATCH 1 PATCH TRANSDERMA (08:56)
--- NOTE | 2023-10-30 09:27 | P.PNNP_ITS ---
Subjective Subjective Date of Service: 10/30/23 Interval history: Events noted Thristy NOn oliguric Marginal decrease in creatinine Physical Exam 2 Vital Signs: Vital Signs: Last Vital Signs Temp 98.1 F 10/30/23 07:31 Pulse 60 10/30/23 08:42 Resp 16 10/30/23 07:31 BP 192/86 H 10/30/23 08:55 Pulse Ox 95 10/30/23 08:42 O2 Del Method Nasal Cannula 10/30/23 07:31 O2 Flow Rate 2 10/30/23 07:31 Oxygen Flow Rate 2 10/27/23 08:00 BMI result Body Mass Index 35.1 Const: General: ill appearing Neck: Neck: Yes supple Resp: Auscultation: clear to auscultation bilaterally Cardio: Palpation: no palpable S3 Heart sounds: no rubs GI: Palpation (GI): Soft to palpation Auscultation: normal bowel sounds Neuro: Motor exam (neuro): no asterixis Objective Data Labs 10/30/23 05:43 10/30/23 05:43 Labs: Laboratory Results - last 24 hr 10/29/23 10/29/23 10/29/23 08:39 12:06 14:56 WBC RBC Hgb Hct MCV MCH MCHC RDW Plt Count MPV Absolute Nucleated RBC Nucleated RBC % (auto) PT INR Sodium 148 H Potassium 3.9 Chloride 113 H Carbon Dioxide 21 L Anion Gap 18 BUN 55 H Creatinine 6.65 H* Estim Creat Clear Calc 15.0 Estimated GFR 9 POC Glucose 291 H 199 H Random Glucose Fasting Glucose 427 H* Estimat Average Glucose Hemoglobin A1c % Calcium 7.7 L Phosphorus Magnesium Total Bilirubin Direct Bilirubin AST ALT Alkaline Phosphatase Total Protein Albumin Triglycerides 167 H Cholesterol 103 LDL Cholesterol, Calc 35 HDL Cholesterol 35 L 10/29/23 10/30/23 10/30/23 20:40 05:43 07:26 WBC 5.4 RBC 2.61 L Hgb 7.8 L Hct 25.0 L MCV 95.8 MCH 29.9 MCHC 31.2 RDW 13.1 Plt Count 117 L MPV 11.0 Absolute Nucleated RBC 0.000 Nucleated RBC % (auto) 0.0 PT 12.2 INR 1.0 Sodium 150 H Potassium 3.3 Chloride 116 H Carbon Dioxide 21 L Anion Gap 16 BUN 47 H Creatinine 6.11 H* Estim Creat Clear Calc 16.4 Estimated GFR 10 POC Glucose 145 H 150 H Random Glucose 166 H Fasting Glucose Estimat Average Glucose 194 Hemoglobin A1c % 8.4 H Calcium 8.0 L Phosphorus 3.1 Magnesium 1.6 Total Bilirubin 0.5 Direct Bilirubin 0.2 AST 12 ALT 18 Alkaline Phosphatase 57 Total Protein 5.4 L Albumin 3.1 L Triglycerides Cholesterol LDL Cholesterol, Calc HDL Cholesterol Microbiology Microbiology Results: Microbiology 10/24/23 19:12 Blood - Venous Blood Culture - Final No growth after 5 days. 10/24/23 18:51 Blood - Venous Blood Culture - Final No growth after 5 days. Procedures Date of Service Date of Service: 10/30/23 Assessment & Plan Assessment and plan (1) Acute on chronic kidney failure: Status: Acute (2) Acute hyperkalemia: Status: Acute Plan 53-year-old man with stage IV CKD admitted with severe hyperkalemia due to diabetic ketoacidosis. He underwent emergency dialysis in potassium stance corrected. He is currently nonoliguric. Blood sugar is better controlled. I would watch him over the next 48 hours to see if there is any meaningful renal recovery. If not he would require ongoing dialysis and I will arrange for the same. Severe anemia due to CKD. Iron stores were adequate in September. Epogen per protocol Mild metabolic acidosis Mild hypernatremia due to free water deficit needs to increase p.o. water intake. Agree with hypotonic fluids Time Spent With Patient Time: Total time managing care of this patient today ____ minutes. Progress Note: Quality Stroke Does the patient have a stroke diagnosis?: No
--- NOTE | 2023-10-30 10:45 | MHC.SPEECHCO ---
POLE PEELING MACHINE OPERATOR checkd in with Pt this AM, but he was fast asleep. His was in the room, she tells me he had a rough night and that he agreed to a PEG tube this morning - which will take place either today or tomorrow. POLE PEELING MACHINE OPERATOR updated RN, requested to be messaged when the Pt wakes up to trial ice chips.
--- NOTE | 2023-10-30 10:55 | MHC.CLN ---
F/U REVIEWED LABS DISCUSSED WITH PT REFUSED NGT AT THIS TIME DISCUSSED WITH PHARMACY RECOMMEND STARTING PPN AT 55ML/HR TO PROVIDE 673KCALS, 132G DEXTROSE, 56G PROTEIN REPLETE LYTES NEEDED
[2023-10-30 11:53] LABS: Glucose, Whole Blood 202 mg/dL (60-115)
[2023-10-30] MEDS: Insulin Lispro 100 UNIT/ML 3 ML VIAL SUBCUT ×2 (12:09→21:06)
[2023-10-30] MEDS: hydrALAZINE HCl 20 MG/ML VIAL 10 MG IVPUSH (12:10)
--- NOTE | 2023-10-30 13:46 | P.PNIM_ITS ---
Subjective Subjective Date of Service: 10/30/23 Interval History: Seen and evaluated this morning still with significant right sided weakness unable to tolerate PO, can have some ice chips Frustrated with his new baseline now Review of Systems Review of Systems: Yes all other systems are reviewed and are negative Physical Exam 2 Vital Signs: Vital Signs: Last Vital Signs Temp 97.8 F 10/30/23 11:42 Pulse 60 10/30/23 11:42 Resp 18 10/30/23 11:42 BP 168/72 H 10/30/23 13:34 Pulse Ox 97 10/30/23 11:53 O2 Del Method Room Air 10/30/23 11:53 O2 Flow Rate 1 10/30/23 11:42 Oxygen Flow Rate 2 10/27/23 08:00 BMI result Body Mass Index 35.1 Const: Other: Constitutional : Awake, interactive, not in distress Neck : Normal inspection, Supple Cardiovascular : RRR, no JVP, no lower extremity edema Respiratory : good bilateral air entry, no crackles, wheezes or rhonchi Gastrointestinal: soft, lax, Normal bowel sounds, Non tender Skin : Warm, Dry Neurological : Alert & oriented x3, right homonymous hemianopsia. pronation in LUE w 4+ power, right side normal strength Objective Data Active Medications Acetaminophen (Acetaminophen 325 Mg Tablet) 650 mg PO Q6H PRN PRN Reason: pain or fever Last Admin: 10/27/23 12:43 Dose: 650 mg Documented By: ANKIT Aspirin (Aspirin 300 Mg Supp.Rect) 300 mg VA DAILY [facility] Last Admin: 10/30/23 08:57 Dose: Not Given Documented By: HORTENSIA Non-Admin Reason: Patient Refused Atorvastatin Calcium (Atorvastatin Calcium 80 Mg Tablet) 80 mg PO BEDTIME [facility] Last Admin: 10/29/23 21:47 Dose: Not Given Documented By: LORRAINE Non-Admin Reason: NPO Diphenhydramine HCl (Diphenhydramine Hcl 50 Mg/Ml Vial) 25 mg IVPUSH BEDTIME PRN PRN Reason: Insomnia Last Admin: 10/30/23 01:29 Dose: 25 mg Documented By: LORRAINE Heparin Sodium (Porcine) (Heparin Sodium,Porcine 5,000 Unit/Ml Vial) 5,000 unit SUBCUT Q12H [facility] Last Admin: 10/30/23 08:53 Dose: 5,000 unit Documented By: HORTENSIA Hydralazine HCl (Hydralazine Hcl 20 Mg/Ml Vial) 10 mg IVPUSH Q6H PRN; Protocol PRN Reason: sbp greater than 180 Last Admin: 10/30/23 12:10 Dose: 10 mg Documented By: HORTENSIA Comments: Physician approved to administer medication Hydralazine HCl (Hydralazine Hcl 20 Mg/Ml Vial) 5 mg IVPUSH Q6H ROSS; Protocol Last Admin: 10/30/23 08:55 Dose: 5 mg Documented By: HORTENSIA Dextrose (D10) 250 mls @ 750 mls/hr IV Q30M PRN PRN Reason: BG <70 Last Infusion: 10/27/23 22:32 Dose: Infused Documented By: ABIMBOLA Piperacillin Sod/Tazobactam (Sod 2.25 gm/ Sodium Chloride) 50 mls @ 100 mls/hr IV Q6H [facility] Last Infusion: 10/30/23 13:36 Dose: Infused Documented By: HORTENSIA Dextrose (D10) 250 mls @ 750 mls/hr IV Q15M PRN PRN Reason: per Hypoglycemia Standing Ord. Dextrose (D5w) 1,000 mls @ 150 mls/hr IVCONT .Q6H40M [facility] Last Admin: 10/30/23 12:09 Dose: 100 mls/hr Documented By: HORTENSIA Nutrition (Parenteral) (Parenteral Nutrition) 1,320 mls @ 55 mls/hr IV .Q24H [facility]; Protocol Stop: 10/31/23 20:59 Insulin Glargine (Insulin Glargine,Hum.Rec.Anlog 100 Unit/Ml 10 Ml Vial) 25 unit SUBCUT DAILY [facility] Last Admin: 10/30/23 08:54 Dose: 25 unit Documented By: HORTENSIA Insulin Human Lispro (Insulin Lispro 100 Unit/Ml 3 Ml Vial) 0 unit SUBCUT QIDACHS [facility]; Protocol Last Admin: 10/30/23 12:09 Dose: 4 unit Documented By: HORTENSIA Lidocaine (Lidocaine 4 % Patch Adh..Patch) 1 patch TRANSDERMA DAILY [facility]; Protocol Last Admin: 10/30/23 08:56 Dose: 1 patch Documented By: HORTENSIA Ondansetron HCl (Ondansetron Hcl 4 Mg/2 Ml Vial) 4 mg IVPUSH Q6H PRN PRN Reason: Nausea Last Admin: 10/25/23 17:10 Dose: 4 mg Documented By: MARY JANE Pharmacy Consult (Consult Rx Parenteral Nutrition Ordering) 1 each MISCELLANE DAILY PRN PRN Reason: Consult order Labs 10/30/23 05:43 10/30/23 13:20 Labs: Laboratory Results - last 24 hr 10/29/23 10/29/23 10/30/23 14:56 20:40 05:43 MCV 95.8 MCH 29.9 MCHC 31.2 RDW 13.1 Plt Count 117 L MPV 11.0 Absolute Nucleated RBC 0.000 Nucleated RBC % (auto) 0.0 PT 12.2 INR 1.0 Anion Gap 16 Estim Creat Clear Calc 16.4 Estimated GFR 10 POC Glucose 199 H 145 H Random Glucose 166 H Estimat Average Glucose 194 Hemoglobin A1c % 8.4 H Calcium 8.0 L Phosphorus 3.1 Magnesium 1.6 Total Bilirubin 0.5 Direct Bilirubin 0.2 AST 12 ALT 18 Alkaline Phosphatase 57 Total Protein 5.4 L Albumin 3.1 L 10/30/23 10/30/23 07:26 11:45 MCV MCH MCHC RDW Plt Count MPV Absolute Nucleated RBC Nucleated RBC % (auto) PT INR Anion Gap Estim Creat Clear Calc Estimated GFR POC Glucose 150 H 202 H Random Glucose Estimat Average Glucose Hemoglobin A1c % Calcium Phosphorus Magnesium Total Bilirubin Direct Bilirubin AST ALT Alkaline Phosphatase Total Protein Albumin Microbiology Microbiology Results: Microbiology 10/24/23 19:12 Blood Culture - Final Blood - Venous No growth after 5 days. 10/24/23 18:51 Blood Culture - Final Blood - Venous No growth after 5 days. 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 DKA resolved, hyperkalemia resolved, downgraded to medical floor 10/25/23. course copmlicated by acute hypoxia and fevers (not meeting SIRS) Acute embolic stroke Noted on CT scan, confirmed by MRI Patient unable to swallow now. SALES TEAM MANAGER following Echo w bubble not showing VSD\ASD Neurology input appreciated, multiple acute strokes primarily in the left posterior cerebral territory and one in the right hemisphere as well suggesting embolic etiology start ASA and Plavix (patient unable to tolerate PO, to give VA Aspirin for now) start PPN for now Failing SALES TEAM MANAGER, to place G-tube PT\OT following NATALIA on CKD 5 complicated by acute metabolic acidosis,hyperkalemia, and anemia Cr mildly better Started on hemodialysis, Nephrology following, nonoliguric but with urinary retention, has [place], Continue flomax when taking po, continue d5w nephro to hold on dialysis now follow BMP Acute hypernatremia Na of 150 Increase D5W Follow BMP Diabetes with DKA Resolved Basal bolus insulin, monitor Dysphagia NPO for now, failed MBSS, follow up speech therapy Fever without sepsis and acute hypoxic respiratory failure Possible pneumonia, covering with IV Zosyn, cultures negative DVT prophylaxis with heparin sq Full code reason for continued hospitalization: Not taking p.o., natalia, Acute stroke Quality Stroke Does the patient have a stroke diagnosis?: No VTE Prior VTE?: No VTE Risk Level:: Medical - moderate - high VTE Device Contraindication: N/A - Device Ordered VTE Drug Contraindication: N/A - Med Ordered
[2023-10-30 13:49] LABS: Anion Gap 17 (12-20); Blood Urea Nitrogen 43 mg/dL (9-16); Calcium 8.1 mg/dL (8.4-10.2); Carbon Dioxide 20 mmol/L (22-29); Chloride 116 mmol/L (96-108); Creatinine Clr Calc Pharmacy 16.8; Estimated Glomerular Filt Rate 10; Glucose Random 194 mg/dL (60-115); Potassium 3.3 mmol/L (3.3-5.1); Sodium 150 mmol/L (135-145)
--- NOTE | 2023-10-30 14:10 | MHC.SL.DTX ---
Dysphagia Diet modifications: Last documented Solid diet consistencies: NPO Last documented Liquid consistency: NPO Last documented Medication Administration:NPO Changes made to current diet?: Yes Liquid Consistency and Strategies: Liquid Intake Recommendation: NPO Compensatory Strategies for Safe Swallow: Small Sips Compensatory Strategies for Safe Swallow(b): Sitting Upright (90 deg) Solid Food Consistency: Dietary Recommendations: NPO Additional Modifications to Solids: Based on clinical observations at bedside, safest textures appear to be CHOPPED/ADVANCED diet (NDD3) for solids with NECTAR THICK liquids. Upon discussion with Dr. Barreto, decision was made for patient to remain NPO at this time pending MBSS, which is recommended to further evaluate extent of pharyngeal dysphagia and to identify dietary recommendations. MBSS is scheduled with Radiology for 2:15pm today. Oral Medication Intake: NPO Strategies and Precautions to be Taken for Safe Swallow: Sitting Upright (90 deg) Supervision While Eating and/Drinking: Total Assistance (1:1) Foods to Avoid: Swallowing Recommended Treatments: Prognosis for Improvement: Guarded Recommendation for Speech: Inpatient Speech Therapy Comment: Intake Recommendations: Route: NPO/Alternate Route Diet Grade: IDDSI Levels: Liquid Consistencies: IDDSI Levels: Post-Study Functional Oral Intake Scale (FOIS): 1- No oral intake Adalid aspiration on thin, nectar thick, and puree consistencies. Patient with protective cough reflex, which did not expel contrast from the airway. Exam was discontinued for patient safety. Based on these observations, recommend patient remain NPO at this time, with continued speech therapy during his inpatient stay and repeat-MBSS when appropriate to evaluate for any changes. Suggested Referrals: The patient might benefit from a referral to: Gastroenterology, Nutrition Services, Medical Team Indication for Referral: Evaluate if patient is candidate for temporary vs. termite control service representative alternative means of nutrition/hydration. Therapy Recommendations: Dysphagia Treatment will be continued M-F during inpatient stay, with repeat-MBSS when appropriate Textile Worker Goals: ? The patient will demonstrate improved swallowing function via repeat clinical evaluation, videoendoscopy/videofluoroscopy and/or patient self-rating scores. ? The patient and/or family will participate in further education for swallowing goals. Frequency/Duration: Daily M-F Date Range for Service Req: Timeline to reassess: PRN Additional Comments: Treatment: Pt has been NPO since his MBSS showed aspiration on Thin, [place] and Puree Solids. He initially declined PEG tube, but is now supportive. He is planned for PEG placement today or tomorrow. He is also very upset that he cannot eat, and has threatened to leave the hospital. BRIQUETTER OPERATOR in to see Pt. His Mother and Sister are present. He is positioned upright. BRIQUETTER OPERATOR provided him with small single ice chips. He demonstrated delayed cough in 5 out of 10 trials. BRIQUETTER OPERATOR explained the risks of aspiration which the Pt verbalizes understanding. He wishes to continue with ice chips, stating at least I can have something . BRIQUETTER OPERATOR explained the best ways to reduce the risk of aspiration related pneumonia to Pt and caregivers and will continue to work with them on those options. Charge Auditor Clinican/Clinical Fellow: No Supervisory Statement: I have reviewed and agree with the student/clinical fellow's documentation: N/A Speech Language Pathologist: Noah Galaviz M.A., [facility]-BRIQUETTER OPERATOR
--- NOTE | 2023-10-30 16:12 | PM.CNGS ---
History of Present Illness Consult details Consult date: 10/30/23 Narrative: 52-year-old male referred for PEG tube placement because of dysphagia. He was admitted on 10/24/2023 because of DKA. He would acute on chronic renal failure as well on admission. He was noted to have dysphagia and he was sent for an MRI of the brain which showed CVA on the distribution of the left posterior cerebral artery as well as in the right hemisphere suggestive of an embolic phenomena. He has failed a swallow eval so he was referred for a PEG tube placement. He denies any previous abdominal surgeries. Review of Systems Constitutional: Constitutional: Reports fatigue and Reports weakness Cardiovascular: Cardiovascular: Denies chest pain at rest Respiratory: Respiratory: Denies cough Gastrointestinal: Gastrointestinal: Denies abdominal pain Genitourinary: Genitourinary: Denies difficulty urinating Neurologic: Reports weakness Comments: Dysphagia Endocrine: Endocrine: Reports fatigue [facility] Past Medical History Medical History (Updated 11/06/23 @ 14:00 by Sylvie Arriaza MD) Metabolic acidosis Right foot ulcer Anxiety History of foot ulcer Obesity (BMI 30-39.9) Depression Rotator cuff arthropathy of left shoulder Vitamin D deficiency Allergic rhinitis Anemia Pure hypercholesterolemia Benign essential hypertension Diabetic polyneuropathy Type 2 diabetes mellitus with diabetic chronic kidney disease Erectile dysfunction Type 2 diabetes mellitus with hyperglycemia, with long-term current use of insulin Type 2 diabetes mellitus with diabetic polyneuropathy Type 2 diabetes mellitus with chronic kidney disease 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 LDL goal <70 Family History Family History Father Lung cancer Mother Hypertension Coronary artery disease CVD (cardiovascular disease) TIA (transient ischemic attack) Sister Diabetes Maternal Uncle Diabetes Other Mental health problem Surgical History Surgical History History of nasal surgery Social History Social History Household Members: Unknown / Unable to assess Housing: Unknown / Unable to assess Do you presently have visiting nurse or other home services: No Alcohol intake: current Alcohol intake frequency: holidays/special occasions only Comment: sister in room Patient Tobacco Use Status: Never used Tobacco e-Cigarette/Vaping Use: Never Used Second Hand Smoke Exposure: Yes service: No Current occupational status: unemployed Cognitive needs: No Hearing needs: No Vision needs: No Meds Allergies Allergy/AdvReac Type Severity Reaction Status Date / Time No Known Allergies Allergy Verified 10/24/23 18:33 Active Medications: Current Medications Acetaminophen (Acetaminophen 325 Mg Tablet) 650 mg PO Q6H PRN PRN Reason: pain or fever Last Admin: 10/27/23 12:43 Dose: 650 mg Aspirin (Aspirin 300 Mg Supp.Rect) 300 mg TN DAILY ROSS Last Admin: 10/30/23 08:57 Dose: Not Given Atorvastatin Calcium (Atorvastatin Calcium 80 Mg Tablet) 80 mg PO BEDTIME ROSS Last Admin: 10/29/23 21:47 Dose: Not Given Diphenhydramine HCl (Diphenhydramine Hcl 50 Mg/Ml Vial) 25 mg IVPUSH BEDTIME PRN PRN Reason: Insomnia Last Admin: 10/30/23 01:29 Dose: 25 mg Heparin Sodium (Porcine) (Heparin Sodium,Porcine 5,000 Unit/Ml Vial) 5,000 unit SUBCUT Q12H ROSS Last Admin: 10/30/23 08:53 Dose: 5,000 unit Hydralazine HCl (Hydralazine Hcl 20 Mg/Ml Vial) 10 mg IVPUSH Q6H PRN; Protocol PRN Reason: sbp greater than 180 Last Admin: 10/30/23 12:10 Dose: 10 mg Hydralazine HCl (Hydralazine Hcl 20 Mg/Ml Vial) 5 mg IVPUSH Q6H ROSS; Protocol Last Admin: 10/30/23 14:12 Dose: 5 mg Dextrose (D10) 250 mls @ 750 mls/hr IV Q30M PRN PRN Reason: BG <70 Last Infusion: 10/27/23 22:32 Dose: Infused Piperacillin Sod/Tazobactam (Sod 2.25 gm/ Sodium Chloride) 50 mls @ 100 mls/hr IV Q6H [facility] Last Infusion: 10/30/23 13:36 Dose: Infused Dextrose (D10) 250 mls @ 750 mls/hr IV Q15M PRN PRN Reason: per Hypoglycemia Standing Ord. Dextrose (D5w) 1,000 mls @ 150 mls/hr IVCONT .Q6H40M [facility] Last Infusion: 10/30/23 12:15 Dose: 150 mls/hr Nutrition (Parenteral) (Parenteral Nutrition) 1,320 mls @ 55 mls/hr IV .Q24H ROSS; Protocol Stop: 10/31/23 20:59 Insulin Glargine (Insulin Glargine,Hum.Rec.Anlog 100 Unit/Ml 10 Ml Vial) 25 unit SUBCUT DAILY [facility] Last Admin: 10/30/23 08:54 Dose: 25 unit Insulin Human Lispro (Insulin Lispro 100 Unit/Ml 3 Ml Vial) 0 unit SUBCUT QIDACHS [facility]; Protocol Last Admin: 10/30/23 12:09 Dose: 4 unit Lidocaine (Lidocaine 4 % Patch Adh..Patch) 1 patch TRANSDERMA DAILY [facility]; Protocol Last Admin: 10/30/23 08:56 Dose: 1 patch Ondansetron HCl (Ondansetron Hcl 4 Mg/2 Ml Vial) 4 mg IVPUSH Q6H PRN PRN Reason: Nausea Last Admin: 10/25/23 17:10 Dose: 4 mg Pharmacy Consult (Consult Rx Parenteral Nutrition Ordering) 1 each MISCELLANE DAILY PRN PRN Reason: Consult order Home Medications ?Medication ?Instructions ?Recorded ?Confirmed ?Last Taken ?Type hydralazine 50 mg tablet 50 mg PO TID 10/24/23 10/24/23 Unknown History oxycodone 5 mg tablet 5 mg PO TID PRN severe pain 10/24/23 Unknown History Physical Exam Vital Signs: Vital Signs: Last Vital Signs Temp 97.8 F 10/30/23 11:42 Pulse 60 10/30/23 11:42 Resp 18 10/30/23 11:42 BP 168/72 H 10/30/23 14:12 Pulse Ox 97 10/30/23 11:53 O2 Del Method Room Air 10/30/23 11:53 O2 Flow Rate 1 10/30/23 11:42 Oxygen Flow Rate 2 10/27/23 08:00 BMI result Body Mass Index 35.1 Const: General: comfortable and no acute distress Resp: Effort & Inspection: normal respiratory effort Cardio: Rate: regular rate GI: Other: No abdominal surgical scars Palpation (GI): Soft to palpation and not firm Results Labs 11/06/23 07:36 11/06/23 07:36 Labs: Abnormal lab results 10/29/23 10/30/23 10/30/23 Range/Units 20:40 05:43 07:26 RBC 2.61 L (4.60-5.80) X10*6/uL Hgb 7.8 L (14.0-18.0) g/dl Hct 25.0 L (42.0-52.0) % Plt Count 117 L (160-400) X10*3/uL Sodium 150 H (135-145) mmol/L Chloride 116 H (96-108) mmol/L Carbon Dioxide 21 L (22-29) mmol/L BUN 47 H (9-16) mg/dL Creatinine 6.11 H* (0.5-1.4) mg/dL POC Glucose 145 H 150 H (60-115) mg/dL Random Glucose 166 H (60-115) mg/dL Hemoglobin A1c % 8.4 H (<6.0) % Calcium 8.0 L (8.4-10.2) mg/dL Total Protein 5.4 L (6.5-8.0) g/dL Albumin 3.1 L (3.5-5.0) g/dL 10/30/23 10/30/23 Range/Units 11:45 13:20 RBC (4.60-5.80) X10*6/uL Hgb (14.0-18.0) g/dl Hct (42.0-52.0) % Plt Count (160-400) X10*3/uL Sodium 150 H (135-145) mmol/L Chloride 116 H (96-108) mmol/L Carbon Dioxide 20 L (22-29) mmol/L BUN 43 H (9-16) mg/dL Creatinine 5.96 H* (0.5-1.4) mg/dL POC Glucose 202 H (60-115) mg/dL Random Glucose 194 H (60-115) mg/dL Hemoglobin A1c % (<6.0) % Calcium 8.1 L (8.4-10.2) mg/dL Total Protein (6.5-8.0) g/dL Albumin (3.5-5.0) g/dL Short CBC 10/30/23 Range/Units 05:43 WBC 5.4 (4.8-10.8) X10*3/uL Hgb 7.8 L (14.0-18.0) g/dl Hct 25.0 L (42.0-52.0) % Plt Count 117 L (160-400) X10*3/uL BMP 10/30/23 10/30/23 05:43 13:20 Sodium 150 H 150 H Potassium 3.3 3.3 Chloride 116 H 116 H Carbon Dioxide 21 L 20 L BUN 47 H 43 H Creatinine 6.11 H* 5.96 H* Calcium 8.0 L 8.1 L Liver Function 10/30/23 Range/Units 05:43 Total Bilirubin 0.5 (0.0-1.0) mg/dL Direct Bilirubin 0.2 (0.0-0.5) mg/dL AST 12 (5-37) U/L ALT 18 (0-40) U/L Alkaline Phosphatase 57 (39-117) U/L Albumin 3.1 L (3.5-5.0) g/dL Urine 10/24/23 Range/Units 20:07 Urine Color Yellow Urine Appearance Cloudy Urine pH 5.0 (5.0-9.0) Ur Specific [place] 1.025 (1.005-1.025) Urine Protein >=1000 (4+) H (Neg-Trace) mg/dL Urine Glucose (UA) >=1000 H (Negative) mg/dL All other labs normal. Imaging Additional studies: Laboratory Results WBC 5.4 X10*3/uL (4.8-10.8) 10/30/23 05:43 RBC 2.61 X10*6/uL (4.60-5.80) L 10/30/23 05:43 Hgb 7.8 g/dl (14.0-18.0) L 10/30/23 05:43 Hct 25.0 % (42.0-52.0) L 10/30/23 05:43 MCV 95.8 fL (80.0-98.0) 10/30/23 05:43 MCH 29.9 pg (27.0-33.0) 10/30/23 05:43 MCHC 31.2 g/dl (31.0-36.0) 10/30/23 05:43 RDW 13.1 % (11.0-16.0) 10/30/23 05:43 Plt Count 117 X10*3/uL (160-400) L 10/30/23 05:43 MPV 11.0 fL (9.4-12.4) 10/30/23 05:43 Immature Gran % (Auto) 0.4 % (0.0-0.4) 10/26/23 05:43 Neut % (Auto) 72.8 % (45-73) 10/26/23 05:43 Lymph % (Auto) 16.9 % (20-40) L 10/26/23 05:43 [place] % (Auto) 9.4 % (2-11) 10/26/23 05:43 Eos % (Auto) 0.1 % (0-4) 10/26/23 05:43 Baso % (Auto) 0.4 % (0-2) 10/26/23 05:43 Lymph # (Auto) 1.1 X10*3/uL (1.2-4.9) L 10/26/23 05:43 [place] # (Auto) 0.6 X10*3/uL (0.1-1.2) 10/26/23 05:43 Eos # (Auto) 0.0 X10*3/uL (0.0-0.4) 10/26/23 05:43 Baso # (Auto) 0.0 X10*3/uL (0.0-0.2) 10/26/23 05:43 Abs Immat Gran (auto) 0.03 X10*3/uL (0.00-0.03) 10/26/23 05:43 Absolute Neuts (auto) 4.9 x10*3/uL (2.0-8.3) 10/26/23 05:43 Absolute Nucleated RBC 0.000 X10*3/uL (0.0-0.012) 10/30/23 05:43 Nucleated RBC % (auto) 0.0 /100WBC (0.0-0.2) 10/30/23 05:43 Smear Path Review SEE NOTE 10/26/23 05:43 Hold Purple Top SEE NOTE 10/24/23 21:38 PT 12.2 SEC (11.1-13.3) 10/30/23 05:43 INR 1.0 (0.9-1.1) 10/30/23 05:43 VBG pH 7.47 (7.32-7.43) H 10/25/23 04:41 VBG pCO2 31 mmHg 10/25/23 04:41 VBG pO2 46 mmHg 10/25/23 04:41 VBG HCO3 23 mmol/L (22-26) 10/25/23 04:41 VBG O2 Saturation 89.0 % 10/25/23 04:41 VBG Base Excess 0.3 mmol/L 10/25/23 04:41 Sodium 150 mmol/L (135-145) H 10/30/23 13:20 Potassium 3.3 mmol/L (3.3-5.1) 10/30/23 13:20 Chloride 116 mmol/L (96-108) H 10/30/23 13:20 Carbon Dioxide 20 mmol/L (22-29) L 10/30/23 13:20 Anion Gap 17 (12-20) 10/30/23 13:20 BUN 43 mg/dL (9-16) H 10/30/23 13:20 Creatinine 5.96 mg/dL (0.5-1.4) H* 10/30/23 13:20 Estim Creat Clear Calc 16.8 10/30/23 13:20 Estimated GFR 10 10/30/23 13:20 POC Glucose 202 mg/dL (60-115) H 10/30/23 11:45 Random Glucose 194 mg/dL (60-115) H 10/30/23 13:20 Fasting Glucose 427 mg/dL (60-99) H* 10/29/23 08:39 Estimat Average Glucose 194 mg/dL 10/30/23 05:43 Hemoglobin A1c % 8.4 % (<6.0) H 10/30/23 05:43 Insulin Level < 2 uU/mL (2-29) L 10/24/23 19:25 Lactic Acid 5.8 mmol/L (0.5-2.0) H* 10/24/23 18:51 Lactic Acid F/U @ 2Hr 6.2 mmol/L (0.5-2.0) H* 10/24/23 21:37 Lactic Acid F/U @ 4Hr 4.0 mmol/L (0.5-2.0) H* 10/24/23 23:50 Calcium 8.1 mg/dL (8.4-10.2) L 10/30/23 13:20 Phosphorus 3.1 mg/dL (2.7-4.5) 10/30/23 05:43 Magnesium 1.6 mg/dL (1.6-2.6) 10/30/23 05:43 Total Bilirubin 0.5 mg/dL (0.0-1.0) 10/30/23 05:43 Direct Bilirubin 0.2 mg/dL (0.0-0.5) 10/30/23 05:43 AST 12 U/L (5-37) 10/30/23 05:43 ALT 18 U/L (0-40) 10/30/23 05:43 Alkaline Phosphatase 57 U/L (39-117) 10/30/23 05:43 Troponin I High Sens 88.5 ng/L (<3.5-35.0) H 10/24/23 18:28 B-Natriuretic Peptide 830 pg/mL (<100) H 10/24/23 18:28 Total Protein 5.4 g/dL (6.5-8.0) L 10/30/23 05:43 Albumin 3.1 g/dL (3.5-5.0) L 10/30/23 05:43 Triglycerides 167 mg/dL (<150) H 10/29/23 08:39 Cholesterol 103 mg/dL (<200) 10/29/23 08:39 LDL Cholesterol, Calc 35 mg/dL (<100) 10/29/23 08:39 HDL Cholesterol 35 mg/dL (>40) L 10/29/23 08:39 Lipase 36 U/L (8-78) 10/24/23 19:25 Beta-Hydroxybutyrate 8.35 mmol/L (0.02-0.27) H 10/24/23 19:25 TSH 1.98 uIU/mL (0.32-4.0) 10/24/23 21:38 Thyroxine (T4) 7.2 ug/dL (4.5-12.0) 10/24/23 21:38 Hold Yellow Top See Note 10/24/23 21:38 Urine Color Yellow 10/24/23 20:07 Urine Appearance Cloudy 10/24/23 20:07 Urine pH 5.0 (5.0-9.0) 10/24/23 20:07 Ur Specific [place] 1.025 (1.005-1.025) 10/24/23 20:07 Urine Protein >=1000 (4+) mg/dL (Neg-Trace) H 10/24/23 20:07 Urine Glucose (UA) >=1000 mg/dL (Negative) H 10/24/23 20:07 Urine Ketones Trace mg/dL (Negative) 10/24/23 20: Urine Blood Large (3+) (Negative) H 10/24/23 20:07 Urine Nitrite Negative (Negative) 10/24/23 20:07 Ur Leukocyte Esterase Negative (Negative) 10/24/23 20:07 Urine RBC >20 /HPF (0-2) H 10/24/23 20: Urine WBC 0-5 /HPF (0-5) 10/24/23 20:07 Ur Squamous Epith Cells 6-10 /HPF (0-2) 10/24/23 20:07 Urine Bacteria None Seen (None Seen) 10/24/23 20: Hyaline Casts 0-2 /LPF (0-2) 10/24/23 20:07 Stl C. cayetanensis PCR Not Detected (Not Detect.) 10/26/23 22:49 Stool Rotavirus A PCR Not Detected (Not Detect.) 10/26/23:49 Stl Adenov F 40/41 PCR Not Detected (Not Detect.) 10/26/23 22:49 Stool Astrovirus (PCR) Not Detected (Not Detect.) 10/26/23 22:49 Stool Campylobacter PCR Not Detected (Not Detect.) 10/26/23 22:49 Stool Cryptosporidium PCR Not Detected (Not Detect.) 10/26/23 22:49 Stl Sh Tox Pr E STEC PCR Not Detected (Not Detect.) 10/26/23 22:49 Stool E coli O157 PCR Not applicable (Not Detect.) 10/26/23 22:49 Stl Enterotoxigenic E PCR Not Detected (Not Detect.) 10/26/23 22:49 Stool EPEC (PCR) Not Detected (Not Detect.) 10/26/23 22:49 Stool EAEC (PCR) Not Detected (Not Detect.) 10/26/23 22:49 Stl E. histolytica PCR Not Detected (Not Detect.) 10/26/23 22:49 Stool Giardia Lamblia PCR Not Detected (Not Detect.) 10/26/23 22:49 Stl P. shigelloides PCR Not Detected (Not Detect.) 10/26/23 22:49 Stool Salmonella PCR Not Detected (Not Detect.) 10/26/23 22:49 Stool Sapovirus (PCR) Not Detected (Not Detect.) 10/26/23 22:49 Stl Shigella/EIEC PCR Not Detected (Not Detect.) 10/26/23 22:49 St Y.enterocolitica PCR Not Detected (Not Detect.) 10/26/23 22:49 Stool Vibrio (PCR) Not Detected (Not Detect.) 10/26/23 22:49 Stl Vibrio cholerae PCR Not Detected (Not Detect.) 10/26/23 22:49 Stl Norovirus GI/GII PCR Not Detected (Not Detect.) 10/26/23 22:49 C. difficile Tox B Gene NEGATIVE (Negative) 10/26/23 22:49 Hep Bs Antigen Negative (Negative) 10/24/23 23:11 Hep Bs Antibody NONREACTIVE (Nonreactive) 10/24/23 23:11 Hep B Core Total Ab Nonreactive (Nonreactive) 10/24/23 23:11 Influenza Type A (PCR) NEGATIVE (Negative) 10/24/23 19:21 Influenza Type B (PCR) NEGATIVE (Negative) 10/24/23 19:21 RSV RNA Qual (PCR) NEGATIVE (Negative) 10/24/23 19:21 SARS-CoV-2 RNA (RT-PCR) NEGATIVE (Negative) 10/24/23 19:21 Impressions Abdomen/Pelvis CT 10/24/23 21:17 IMPRESSION: Imaging is limited by motion artifact. No bowel obstruction, free intraperitoneal air or abscess is seen. The appendix appears to be normal in caliber, without finding convincing for appendicitis. No diverticulosis or diverticulitis is seen. There is a small amount of nonspecific free fluid in the anterior pelvis. No focal bowel wall thickening or portal venous gas is noted. Fleischner guidelines were followed. Chest X-Ray 10/25/23 19:33 IMPRESSION: No acute pulmonary disease. There is no radiographic evidence of pneumonia or congestive heart failure. Soft Tissue Neck CT 10/28/23 17:01 IMPRESSION: - Partially imaged probable large acute to subacute infarct within the left [employer] territory involving significant portions of the left occipital lobe and left temporal occipital lobe junction. There is local cerebral sulcal effacement without midline shift. There may be a small acute infarct within the left cerebellum as well. MRI could be obtained for more definitive assessment. - Low lying cerebellar tonsils extend 2 cm below the foramen magnum suggesting a Chiari I malformation with associated mass effect on the brainstem that can be further assessed with MRI. 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 - This is a very limited noncontrast CT of the neck. Etiologies of dysphagia may not be detected without contrast. The superior cornu of the thyroid cartilage encroaches upon the right greater than left piriform sinus which can contribute to dysphagia; superior thyroid cornu syndrome. Covering provider paged with these findings at 5:26 PM on 10/28/2023. Brain MRI 10/29/23 13:42 IMPRESSION: - There is a large acute infarct involving the left [employer] territory exhibiting cortical petechial hemorrhage and cytotoxic edema that results in local cerebral sulcal effacement without midline shift. There are also probable acute embolic infarcts within the frontoparietal ball radiata bilaterally, the right subinsular white matter, and the right putamen. The diffusion series in the posterior fossa is nondiagnostic due to artifact. - There is diffusion restricting material within the occipital horn of the right lateral ventricle concerning for intraventricular pus which should be correlated for clinical signs of ventriculitis/infection. Mild lateral and third ventriculomegaly with periventricular T2 signal changes make it difficult to exclude transependymal CSF effusion. Postcontrast imaging could be obtained as indicated. - 2 cm cerebellar tonsillar herniation below the foramen magnum suggesting a Chiari I malformation resulting in effacement of the CSF cisterns at the level of the foramen magnum and mass effect on the cervicomedullary junction. Atlantooccipital assimilation bilaterally. Platybasia again noted. - Chronic lacunar infarcts within the left cerebellum, the right orion, and the thalami bilaterally. - Partially nondiagnostic MRI of the cervical spine due to significant motion artifact. There is multilevel cervical spondylosis. Nondiagnostic assessment for signal changes within the cervical spinal cord due to the degree of artifact. The disc levels are not diagnostically assessed due to the degree of artifact. Covering provider paged with these findings at 2:53 PM on 10/29/2023. Cervical Spine MRI 10/29/23 14:05 IMPRESSION: - There is a large acute infarct involving the left [employer] territory exhibiting cortical petechial hemorrhage and cytotoxic edema that results in local cerebral sulcal effacement without midline shift. There are also probable acute embolic infarcts within the frontoparietal ball radiata bilaterally, the right subinsular white matter, and the right putamen. The diffusion series in the posterior fossa is nondiagnostic due to artifact. - There is diffusion restricting material within the occipital horn of the right lateral ventricle concerning for intraventricular pus which should be correlated for clinical signs of ventriculitis/infection. Mild lateral and third ventriculomegaly with periventricular T2 signal changes make it difficult to exclude transependymal CSF effusion. Postcontrast imaging could be obtained as indicated. - 2 cm cerebellar tonsillar herniation below the foramen magnum suggesting a Chiari I malformation resulting in effacement of the CSF cisterns at the level of the foramen magnum and mass effect on the cervicomedullary junction. Atlantooccipital assimilation bilaterally. Platybasia again noted. - Chronic lacunar infarcts within the left cerebellum, the right orion, and the thalami bilaterally. - Partially nondiagnostic MRI of the cervical spine due to significant motion artifact. There is multilevel cervical spondylosis. Nondiagnostic assessment for signal changes within the cervical spinal cord due to the degree of artifact. The disc levels are not diagnostically assessed due to the degree of artifact. Covering provider paged with these findings at 2:53 PM on 10/29/2023. Assessment and Plan (1) Dysphagia: Status: Acute He has had dysphagia and has been referred to me for PEG tube placement. I reviewed with him the technique of this procedure. I explained the risks including but not limited to bleeding, injury to esophagus, stomach another intra-abdominal organs, infections, tube dislodgement, loss of airway, tube leak, as well as the benefits and alternatives. He says he agrees to proceed. I plan on doing the PEG tube placement on Friday, November 03, 2023. Procedures Date of Service Date of Service: 11/06/23
[2023-10-30 17:13] LABS: Glucose, Whole Blood 150 mg/dL (60-115)
[2023-10-30] MEDS: Dextrose 5 % 1,000 ML 150 ML IVCONT (17:46)
[2023-10-30 19:31] LABS: Glucose, Whole Blood 155 mg/dL (60-115)
[2023-10-30 19:36] LABS: Anion Gap 13 (12-20); Blood Urea Nitrogen 41 mg/dL (9-16); Calcium 7.9 mg/dL (8.4-10.2); Carbon Dioxide 23 mmol/L (22-29); Chloride 115 mmol/L (96-108); Creatinine Clr Calc Pharmacy 16.8; Estimated Glomerular Filt Rate 10; Glucose Random 166 mg/dL (60-115); Potassium 3.2 mmol/L (3.3-5.1); Sodium 148 mmol/L (135-145)
[2023-10-30] MEDS: Parenteral Nutrition 1,320 ML 55 ML IV (22:20)
[2023-10-31] VITALS (11 sets, daily range): BP systolic 146–179; BP diastolic 58–69; PULSE 61–74; RESP 19–20; TEMP 36.3–36.9; O2SAT 95–100; BMI 35.1
[2023-10-31] MEDS: hydrALAZINE HCl 20 MG/ML VIAL 5 MG IVPUSH ×4 (01:49→21:49)
[2023-10-31] MEDS: Piperacillin Sodium/Tazobactam 2.25 GM in 0.9 % Sodium Chloride 50 ML IV ×4 (01:50→17:39)
[2023-10-31 07:36] LABS: Albumin Level 2.8 g/dL (3.5-5.0); Magnesium 1.7 mg/dL (1.6-2.6); Phosphorus 3.5 mg/dL (2.7-4.5)
[2023-10-31 07:41] LABS: Anion Gap 14 (12-20); Blood Urea Nitrogen 39 mg/dL (9-16); Calcium 7.8 mg/dL (8.4-10.2); Carbon Dioxide 21 mmol/L (22-29); Chloride 115 mmol/L (96-108); Creatinine Clr Calc Pharmacy 17.5; Estimated Glomerular Filt Rate 10; Glucose Random 197 mg/dL (60-115); Potassium 3.6 mmol/L (3.3-5.1); Sodium 146 mmol/L (135-145)
[2023-10-31 07:55] LABS: Glucose, Whole Blood 205 mg/dL (60-115)
[2023-10-31] MEDS: Lidocaine 4 % Patch ADH..PATCH 1 PATCH TRANSDERMA ×2 (08:03→13:30)
[2023-10-31] MEDS: Heparin Sodium,Porcine 5,000 UNIT/ML VIAL 5000 UNIT SUBCUT ×2 (08:03→21:51)
[2023-10-31] MEDS: Insulin Glargine,Hum.rec.anlog 100 UNIT/ML 10 ML VIAL 25 UNIT SUBCUT (08:04)
[2023-10-31] MEDS: Insulin Lispro 100 UNIT/ML 3 ML VIAL SUBCUT ×2 (08:05→21:52)
--- NOTE | 2023-10-31 11:22 | MHC.SLORD ---
Speech Language Pathology Order Status: ABSEILING INSTRUCTOR attempted to see patient this morning for dysphagia treatment. Patient was accompanied by his sister. He was sleeping, awoke momentarily and requested ABSEILING INSTRUCTOR return later for treatment. Notified Dr. Oconnor.
--- NOTE | 2023-10-31 12:03 | MHC.CLN ---
PT CONTINUES ON PPN REVIEWED LABS DISCUSSED WITH PHARMACY 10/31/23 RECOMMEND INCREASING PPN 75ML/HR TO PROVIDE [id number], 180G DEXTROSE, 77G PROTEIN CHECK TRIGS 11/01/23 RECOMMEND INCREASING PPN TO MAX GOAL RATE 95ML/HR WITH 75G LIPIDS TO PROVIDE 1913 TOTAL KCALS, 228G DEXTROSE, 97G PROTEIN (1.2G/KG) REPLETE LYTES NEEDED 11/02/23 CONTINUE AT MAX GOAL RATE NOTED ABOVE PLAN FOR PT TO HAVE PEG TUBE THURSDAY 11/[address] CAN BE REACHED VIA [employer] [facility] W4 DURING OFF HOURS IF NEEDED
[2023-10-31 12:06] LABS: Glucose, Whole Blood 106 mg/dL (60-115)
--- NOTE | 2023-10-31 12:38 | HO.PM.IMPN ---
Subjective Subjective Date of Service: 10/31/23 Interval History: Seen and evaluated this morning still with significant improvement in left sided weakness unable to tolerate PO, can tolerate some ice chips but reports difficulties swallowing water afterwards sodium trending down no reported events Review of Systems Review of Systems: Yes all other systems are reviewed and are negative Physical Exam Vital Signs: Vital Signs: Last Vital Signs Temp 97.6 F 10/31/23 12:00 Pulse 66 10/31/23 12:00 Resp 20 10/31/23 12:00 BP 158/58 H 10/31/23 12:00 Pulse Ox 97 10/31/23 12:00 O2 Del Method Room Air 10/31/23 12:00 O2 Flow Rate 2 10/30/23 23:35 Oxygen Flow Rate 2 10/27/23 08:00 BMI result Body Mass Index 35.1 Const: Other: Constitutional : Awake, interactive, not in distress Neck : Normal inspection, Supple Cardiovascular : RRR, no JVP, no lower extremity edema Respiratory : good bilateral air entry, no crackles, wheezes or rhonchi Gastrointestinal: soft, lax, Normal bowel sounds, Non tender Skin : Warm, Dry Neurological : Alert & oriented x3, right homonymous hemianopsia. pronation in LUE w 4+ power, right side normal strength Objective Data Active Medications Acetaminophen (Acetaminophen 325 Mg Tablet) 650 mg PO Q6H PRN PRN Reason: pain or fever Last Admin: 10/27/23 12:43 Dose: 650 mg Documented By: ANKIT Aspirin (Aspirin 300 Mg Supp.Rect) 300 mg RI DAILY [facility] Last Admin: 10/31/23 08:16 Dose: Not Given Documented By: HORTENSIA Non-Admin Reason: Patient Refused Atorvastatin Calcium (Atorvastatin Calcium 80 Mg Tablet) 80 mg PO BEDTIME ROSS Last Admin: 10/30/23 21:06 Dose: Not Given Documented By: AFIA Non-Admin Reason: NPO Diphenhydramine HCl (Diphenhydramine Hcl 50 Mg/Ml Vial) 25 mg IVPUSH BEDTIME PRN PRN Reason: Insomnia Last Admin: 10/30/23 22:21 Dose: 25 mg Documented By: AFIA Heparin Sodium (Porcine) (Heparin Sodium,Porcine 5,000 Unit/Ml Vial) 5,000 unit SUBCUT Q12H [facility] Last Admin: 10/31/23 08:03 Dose: 5,000 unit Documented By: HORTENSIA Hydralazine HCl (Hydralazine Hcl 20 Mg/Ml Vial) 10 mg IVPUSH Q6H PRN; Protocol PRN Reason: sbp greater than 180 Last Admin: 10/30/23 12:10 Dose: 10 mg Documented By: HORTENSIA Comments: Physician approved to administer medication Hydralazine HCl (Hydralazine Hcl 20 Mg/Ml Vial) 5 mg IVPUSH Q6H ROSS; Protocol Last Admin: 10/31/23 08:04 Dose: 5 mg Documented By: HORTENSIA Dextrose (D10) 250 mls @ 750 mls/hr IV Q30M PRN PRN Reason: BG <70 Last Infusion: 10/27/23 22:32 Dose: Infused Documented By: ABIMBOLA Piperacillin Sod/Tazobactam (Sod 2.25 gm/ Sodium Chloride) 50 mls @ 100 mls/hr IV Q6H ROSS Last Infusion: 10/31/23 09:08 Dose: Infused Documented By: HORTENSIA Dextrose (D10) 250 mls @ 750 mls/hr IV Q15M PRN PRN Reason: per Hypoglycemia Standing Ord. Dextrose (D5w) 1,000 mls @ 150 mls/hr IVCONT .Q6H40M [facility] Last Infusion: 10/31/23 07:19 Dose: Infused Documented By: HORTENSIA Nutrition (Parenteral) (Parenteral Nutrition) 1,320 mls @ 55 mls/hr IV .Q24H ROSS; Protocol Stop: 10/31/23 20:59 Last Admin: 10/30/23 22:20 Dose: 55 mls/hr Documented By: AFIA Nutrition (Parenteral) (Parenteral Nutrition) 1,800 mls @ 75 mls/hr IV .Q24H [facility]; Protocol Stop: 11/01/23 20:59 Insulin Glargine (Insulin Glargine,Hum.Rec.Anlog 100 Unit/Ml 10 Ml Vial) 25 unit SUBCUT DAILY [facility] Last Admin: 10/31/23 08:04 Dose: 25 unit Documented By: HORTENSIA Insulin Human Lispro (Insulin Lispro 100 Unit/Ml 3 Ml Vial) 0 unit SUBCUT QIDACHS [facility]; Protocol Last Admin: 10/31/23 12:14 Dose: Not Given Documented By: HORTENSIA Non-Admin Reason: No Insulin Coverage Lidocaine (Lidocaine 4 % Patch Adh..Patch) 1 patch TRANSDERMA DAILY [facility]; Protocol Last Admin: 10/31/23 08:03 Dose: 1 patch Documented By: HORTENSIA Ondansetron HCl (Ondansetron Hcl 4 Mg/2 Ml Vial) 4 mg IVPUSH Q6H PRN PRN Reason: Nausea Last Admin: 10/25/23 17:10 Dose: 4 mg Documented By: MARY JANE Pharmacy Consult (Consult Rx Parenteral Nutrition Ordering) 1 each MISCELLANE DAILY PRN PRN Reason: Consult order Labs 10/30/23 05:43 10/31/23 06:22 Labs: Laboratory Results - last 24 hr 10/30/23 10/30/23 10/30/23 13:20 16:40 19:05 Anion Gap 17 13 Estim Creat Clear Calc 16.8 16.8 Estimated GFR 10 10 POC Glucose 150 H Random Glucose 194 H 166 H Calcium 8.1 L 7.9 L Phosphorus Magnesium Albumin 10/30/23 10/31/23 10/31/23 19:24 06:22 07:50 Anion Gap 14 Estim Creat Clear Calc 17.5 Estimated GFR 10 POC Glucose 155 H 205 H Random Glucose 197 H Calcium 7.8 L Phosphorus 3.5 Magnesium 1.7 Albumin 2.8 L 10/31/23 11:57 Anion Gap Estim Creat Clear Calc Estimated GFR POC Glucose 106 Random Glucose Calcium Phosphorus Magnesium Albumin Assessment and Plan (1) Acute hypernatremia: Status: Acute (2) Dysphagia: Status: Acute (3) 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 DKA resolved, hyperkalemia resolved, downgraded to medical floor 10/25/23. course copmlicated by acute hypoxia and fevers (not meeting SIRS) Right sided weakness, swallowing problem 2/2 Acute embolic stroke Noted on CT scan, confirmed by MRI to have multiple locations of acute infarcts Echo w bubble not showing VSD\ASD Patient unable to swallow . SENIOR APPLICATION PROGRAMMER following. Plan for G-tube Friday Neurology input appreciated, multiple acute strokes primarily in the left posterior cerebral territory and one in the right hemisphere as well suggesting embolic etiology start ASA and Plavix (patient unable to tolerate PO, to give RI Aspirin for now) tolerating PPN for now Failing SENIOR APPLICATION PROGRAMMER, to place G-tube PT\OT following NATALIA on CKD 5 complicated by acute metabolic acidosis,hyperkalemia, and anemia Cr trending down to 5.7 along with BUN Making good amount of urine Had a session of hemodialysis, Nephrology following, nonoliguric but with urinary retention, has Randolph, Hold on further dialysis now Continue flomax when taking po follow BMP Acute hypernatremia Na of 146 D5W at 150 Follow BMP Diabetes with DKA Resolved SSI Basal bolus insulin, monitor Dysphagia NPO for now, failed MBSS, follow up speech therapy pending G-tube placement Friday Fever without sepsis and acute hypoxic respiratory failure 2/2 Possible pneumonia covering with IV Zosyn started 10/24 cultures negative DVT prophylaxis with heparin sq Full code reason for continued hospitalization: Not taking p.o., natalia, Acute stroke , Hypernatremia pending tolerance of diet\G-tube placement Quality Stroke Does the patient have a stroke diagnosis?: No VTE Prior VTE?: No VTE Risk Level:: Medical - moderate - high VTE Device Contraindication: N/A - Device Ordered VTE Drug Contraindication: N/A - Med Ordered
--- NOTE | 2023-10-31 12:41 | MHC.CM.PN ---
PER MD ROUNDS, PT WILL LIKELY REMAIN OVER THE WEEKEND REFERRALS OUT TO [facility], NO BED OFFERS AT THIS TIME
[2023-10-31 13:07] LABS: Triglycerides 157 mg/dL (<150)
--- NOTE | 2023-10-31 13:07 | PC.NURSE ---
Patient refusing to take aspirin rectally yesterday 10/30/23 and today 10/31/23. stated you will not be sticking anything up my ass . educated on the purpose of the medication. patient continued to refuse. MD landa
[2023-10-31] MEDS: Aspirin 300 MG SUPP.RECT PR (13:30)
--- NOTE | 2023-10-31 13:53 | P.PNNP_ITS ---
Subjective Subjective Date of Service: 10/31/23 Interval history: Seen and evaluated this morning ; all recent data reviewed; discussed with family and hospitalist Physical Exam 2 Vital Signs: Vital Signs: Last Vital Signs Temp 97.6 F 10/31/23 12:00 Pulse 66 10/31/23 12:00 Resp 20 10/31/23 12:00 BP 158/58 H 10/31/23 13:29 Pulse Ox 97 10/31/23 12:00 O2 Del Method Room Air 10/31/23 12:00 O2 Flow Rate 2 10/30/23 23:35 Oxygen Flow Rate 2 10/27/23 08:00 BMI result Body Mass Index 35.1 Const: General: no acute distress Orientation/consciousness: patient oriented x3 Eyes: EOM: EOMs intact bilaterally Neck: Neck: Yes supple Resp: Auscultation: diminished lung sounds Cardio: Rate: regular rate GI: Palpation (GI): Soft to palpation Neuro: General: patient oriented x3 Objective Data Labs 10/30/23 05:43 10/31/23 06:22 Labs: Laboratory Results - last 24 hr 10/30/23 10/30/23 10/30/23 16:40 19:05 19:24 Sodium 148 H Potassium 3.2 L Chloride 115 H Carbon Dioxide 23 Anion Gap 13 BUN 41 H Creatinine 5.95 H* Estim Creat Clear Calc 16.8 Estimated GFR 10 POC Glucose 150 H 155 H Random Glucose 166 H Calcium 7.9 L Phosphorus Magnesium Albumin Triglycerides 10/31/23 10/31/23 10/31/23 06:22 07:50 11:57 Sodium 146 H Potassium 3.6 Chloride 115 H Carbon Dioxide 21 L Anion Gap 14 BUN 39 H Creatinine 5.71 H* Estim Creat Clear Calc 17.5 Estimated GFR 10 POC Glucose 205 H 106 Random Glucose 197 H Calcium 7.8 L Phosphorus 3.5 Magnesium 1.7 Albumin 2.8 L Triglycerides 10/31/23 12:26 Sodium Potassium Chloride Carbon Dioxide Anion Gap BUN Creatinine Estim Creat Clear Calc Estimated GFR POC Glucose Random Glucose Calcium Phosphorus Magnesium Albumin Triglycerides 157 H Microbiology Microbiology Results: Microbiology 10/24/23 19:12 Blood - Venous Blood Culture - Final No growth after 5 days. 10/24/23 18:51 Blood - Venous Blood Culture - Final No growth after 5 days. Procedures Date of Service Date of Service: 05/17/24 Assessment & Plan Assessment and plan (1) Acute on chronic kidney failure: Status: Acute Plan 53-year-old man with stage IV CKD admitted with severe hyperkalemia due to diabetic ketoacidosis. He underwent emergency dialysis ; nonoliguric. Renal functions improving; no further dialysis for now If his renal functions continue to improve, shall discontinue his dialysis catheter on Friday. Continue with rest of his current management .labs AM Progress Note: Quality Stroke Does the patient have a stroke diagnosis?: No
[2023-10-31 14:01] LABS: Anion Gap 13 (12-20); Blood Urea Nitrogen 39 mg/dL (9-16); Calcium 8.2 mg/dL (8.4-10.2); Carbon Dioxide 22 mmol/L (22-29); Chloride 116 mmol/L (96-108); Glucose Random 119 mg/dL (60-115); Potassium 3.3 mmol/L (3.3-5.1); Sodium 148 mmol/L (135-145)
[2023-10-31 14:08] LABS: Creatinine Clr Calc Pharmacy 17.8; Estimated Glomerular Filt Rate 11
--- NOTE | 2023-10-31 15:47 | MHC.SL.SWA ---
Speech Pathologist Impression: MBSS 10/26 showing aspiration Risk of Aspiration Due to: Recent CVA Dysphasia Diet Status: Continue NPO. Recommending therapeutic trials of ice chips with trained staff/caregivers. Ensure oral care prior to trials. Aspiration precautions include sitting upright, single ice chips at a time, slow rate of administration. Pt is still coughing periodically, even with the ice chips, continue to monitor O2 needs - if regression, may have to pull back from the ice chips. AUTOMATIC BANDSAW TENDER following closely. Liquid Consistency and Strategies for Safe Swallow: Liquid Intake Recommendation: NPO Solid Food Consistency: Dietary Recommendations: NPO Additional Modifications to Solid Foods: Dr. Oconnor requesting AUTOMATIC BANDSAW TENDER see patient on Wednesday 11/01 for treatment, repeat-trials with ice chips. On-Call AUTOMATIC BANDSAW TENDER notified. Oral Medication Intake: NPO Please contact the pharmacy regarding appropriate crushable or liquid drug formulations that are available whenever modified delivery is recommended. Recommendation for Speech: Inpatient Speech Therapy Comment: Intake Recommendations: Route: NPO/Alternate Route Diet Grade: IDDSI Levels: Liquid Consistencies: IDDSI Levels: Post-Study Functional Oral Intake Scale (FOIS): 1- No oral intake Adalid aspiration on thin, nectar thick, and puree consistencies. Patient with protective cough reflex, which did not expel contrast from the airway. Exam was discontinued for patient safety. Based on these observations, recommend patient remain NPO at this time, with continued speech therapy during his inpatient stay and repeat-MBSS when appropriate to evaluate for any changes. Suggested Referrals: The patient might benefit from a referral to: Gastroenterology, Nutrition Services, Medical Team Indication for Referral: Evaluate if patient is candidate for temporary vs. ad terminal makeup operator alternative means of nutrition/hydration. Therapy Recommendations: Dysphagia Treatment will be continued M-F during inpatient stay, with repeat-MBSS when appropriate Land Use Planner Goals: ? The patient will demonstrate improved swallowing function via repeat clinical evaluation, videoendoscopy/videofluoroscopy and/or patient self-rating scores. ? The patient and/or family will participate in further education for swallowing goals. Frequency/Duration: Daily M-F Date Range for Service Req: Timeline to reassess: PRN Director Of Programming Clinican/Clinical Fellow: No Supervisory Statement: I have reviewed and agree with the student/clinical fellow's documentation: N/A Speech Language Pathologist: Ileana Reno M.A., [facility]-AUTOMATIC BANDSAW TENDER
[2023-10-31 16:33] LABS: Glucose, Whole Blood 130 mg/dL (60-115)
[2023-10-31] MEDS: Dextrose 5 % 1,000 ML 150 ML IVCONT (17:39)
[2023-10-31 20:50] LABS: Glucose, Whole Blood 189 mg/dL (60-115)
[2023-10-31 21:49] LABS: Anion Gap 16 (12-20); Blood Urea Nitrogen 35 mg/dL (9-16); Calcium 7.7 mg/dL (8.4-10.2); Carbon Dioxide 23 mmol/L (22-29); Chloride 113 mmol/L (96-108); Estimated Glomerular Filt Rate 11; Glucose Random 227 mg/dL (60-115); Potassium 3.7 mmol/L (3.3-5.1); Sodium 148 mmol/L (135-145)
[2023-10-31] MEDS: diphenhydrAMINE HCL 50 MG/ML VIAL 25 MG IVPUSH (21:50)
[2023-10-31] MEDS: Parenteral Nutrition 1,800 ML 75 ML IV (21:53)
[2023-11-01] VITALS (7 sets, daily range): BP systolic 158–170; BP diastolic 58–82; PULSE 55–73; RESP 16–20; TEMP 36.5–36.8; O2SAT 95–99
[2023-11-01] MEDS: Dextrose 5 % 1,000 ML 150 ML IVCONT ×2 (01:35→09:22)
[2023-11-01] MEDS: Piperacillin Sodium/Tazobactam 2.25 GM in 0.9 % Sodium Chloride 50 ML IV ×4 (01:36→17:25)
[2023-11-01] MEDS: hydrALAZINE HCl 20 MG/ML VIAL 5 MG IVPUSH ×4 (01:41→22:34)
[2023-11-01 07:35] LABS: Glucose, Whole Blood 396 mg/dL (60-115)
[2023-11-01 08:18] LABS: Hematocrit 24.2 % (42.0-52.0); Hemoglobin 7.7 g/dl (14.0-18.0); Mean Corpuscular HGB Conc 31.8 g/dl (31.0-36.0); Mean Corpuscular Hemoglobin 30.3 pg (27.0-33.0); Mean Corpuscular Volume 95.3 fL (80.0-98.0); Mean Platelet Volume 10.1 fL (9.4-12.4); Platelet Count 137 X10*3/uL (160-400); Red Blood Count 2.54 X10*6/uL (4.60-5.80); Red Cell Distribution Width 13.2 % (11.0-16.0)
[2023-11-01 09:03] LABS: Albumin Level 2.9 g/dL (3.5-5.0); Anion Gap 14 (12-20); Blood Urea Nitrogen 37 mg/dL (9-16); Calcium 7.6 mg/dL (8.4-10.2); Carbon Dioxide 20 mmol/L (22-29); Chloride 109 mmol/L (96-108); Creatinine Clr Calc Pharmacy 18.7; Estimated Glomerular Filt Rate 11; Magnesium 1.8 mg/dL (1.6-2.6); Phosphorus 3.4 mg/dL (2.7-4.5); Potassium 4.3 mmol/L (3.3-5.1); Sodium 139 mmol/L (135-145)
[2023-11-01] MEDS: Insulin Lispro 100 UNIT/ML 3 ML VIAL SUBCUT ×4 (09:26→17:24)
[2023-11-01] MEDS: Heparin Sodium,Porcine 5,000 UNIT/ML VIAL 5000 UNIT SUBCUT ×2 (09:26→22:34)
[2023-11-01] MEDS: Aspirin 300 MG SUPP.RECT PR (09:27)
[2023-11-01] MEDS: Lidocaine 4 % Patch ADH..PATCH 1 PATCH TRANSDERMA (09:32)
[2023-11-01] MEDS: Insulin Glargine,Hum.rec.anlog 100 UNIT/ML 10 ML VIAL 25 UNIT SUBCUT (09:54)
[2023-11-01 11:52] LABS: Glucose, Whole Blood 365 mg/dL (60-115)
[2023-11-01 12:26] LABS: Glucose Random 471 mg/dL (60-115)
--- NOTE | 2023-11-01 13:05 | MHC.SL.SWA ---
Dysphasia Diet Status: Continue NPO. Recommending therapeutic trials of ice chips with trained staff/caregivers. Ensure oral care prior to trials. Aspiration precautions include sitting upright, single ice chips at a time, slow rate of administration. Pt is still coughing periodically, even with the ice chips, continue to monitor O2 needs - if regression, may have to pull back from the ice chips. FEDERAL JAVA DEVELOPER following closely. Dr. Oconnor requesting FEDERAL JAVA DEVELOPER see patient on Wednesday 11/01 for treatment, repeat-trials with ice chips. On-Call FEDERAL JAVA DEVELOPER notified. Patient was seen today while called in for another patient. Waiting on MD response to see if FEDERAL JAVA DEVELOPER visit is warranted on Wednesday 11/01. Liquid Consistency and Strategies for Safe Swallow: Liquid Intake Recommendation: NPO Liquid Intake Strategies: Small Sips Solid Food Consistency: Dietary Recommendations: NPO Additional Modifications to Solid Foods: Oral Medication Intake: NPO Please contact the pharmacy regarding appropriate crushable or liquid drug formulations that are available whenever modified delivery is recommended. Compensatory Strategies and Precautions to be Taken for Safe Swallow: Sitting Upright (90 deg) Supervision While Eating and Drinking for Safe Swallow: Total Assistance (1:1) Foods to Avoid: Swallowing Recommended Treatments: Compens. Strategy Educat. Recommendation for Speech: Inpatient Speech Therapy Comment: Intake Recommendations: Route: NPO/Alternate Route Diet Grade: IDDSI Levels: Liquid Consistencies: IDDSI Levels: Post-Study Functional Oral Intake Scale (FOIS): 1- No oral intake Adalid aspiration on thin, nectar thick, and puree consistencies. Patient with protective cough reflex, which did not expel contrast from the airway. Exam was discontinued for patient safety. Based on these observations, recommend patient remain NPO at this time, with continued speech therapy during his inpatient stay and repeat-MBSS when appropriate to evaluate for any changes. Suggested Referrals: The patient might benefit from a referral to: Gastroenterology, Nutrition Services, Medical Team Indication for Referral: Evaluate if patient is candidate for temporary vs. fdc alternative means of nutrition/hydration. Therapy Recommendations: Dysphagia Treatment will be continued M-F during inpatient stay, with repeat-MBSS when appropriate Fdc Goals: ? The patient will demonstrate improved swallowing function via repeat clinical evaluation, videoendoscopy/videofluoroscopy and/or patient self-rating scores. ? The patient and/or family will participate in further education for swallowing goals. Frequency/Duration: Daily M-F Date Range for Service Req: Timeline to reassess: PRN Flatbed Owner Operator Clinican/Clinical Fellow: No Supervisory Statement: I have reviewed and agree with the student/clinical fellow's documentation: N/A Speech Language Pathologist: Elida Garcia M.A., CCC-FEDERAL JAVA DEVELOPER
--- NOTE | 2023-11-01 13:46 | P.PNIM_ITS ---
Subjective Subjective Date of Service: 11/01/23 Interval History: Seen and evaluated this morning mild improvement in left sided weakness unable to tolerate PO yet, can tolerate some ice chips but coughs after that sodium trending down no reported events Review of Systems Review of Systems: Yes all other systems are reviewed and are negative Physical Exam 2 Vital Signs: Vital Signs: Last Vital Signs Temp 97.7 F 11/01/23 11:32 Pulse 71 11/01/23 11:32 Resp 18 11/01/23 11:32 BP 160/72 H 11/01/23 11:32 Pulse Ox 99 11/01/23 11:32 O2 Del Method Room Air 11/01/23 11:32 O2 Flow Rate 2 10/30/23 23:35 Oxygen Flow Rate 2 10/27/23 08:00 BMI result Body Mass Index 35.1 Const: Other: Constitutional : Awake, interactive, not in distress Neck : Normal inspection, Supple Cardiovascular : RRR, no JVP, no lower extremity edema Respiratory : good bilateral air entry, no crackles, wheezes or rhonchi Gastrointestinal: soft, lax, Normal bowel sounds, Non tender Skin : Warm, Dry Neurological : Alert & oriented x3, right homonymous hemianopsia. pronation in LUE w 4+ power, right side normal strength Objective Data Active Medications Acetaminophen (Acetaminophen 325 Mg Tablet) 650 mg PO Q6H PRN PRN Reason: pain or fever Last Admin: 10/27/23 12:43 Dose: 650 mg Documented By: ANKIT Aspirin (Aspirin 300 Mg Supp.Rect) 300 mg NC DAILY [facility] Last Admin: 11/01/23 09:27 Dose: 300 mg Documented By: MACKENZIE Atorvastatin Calcium (Atorvastatin Calcium 80 Mg Tablet) 80 mg PO BEDTIME [facility] Last Admin: 10/31/23 22:11 Dose: Not Given Documented By: CLAYTON Non-Admin Reason: no po meds per Diphenhydramine HCl (Diphenhydramine Hcl 50 Mg/Ml Vial) 25 mg IVPUSH BEDTIME PRN PRN Reason: Insomnia Last Admin: 10/31/23 21:50 Dose: 25 mg Documented By: CLAYTON Heparin Sodium (Porcine) (Heparin Sodium,Porcine 5,000 Unit/Ml Vial) 5,000 unit SUBCUT Q12H [facility] Last Admin: 11/01/23 09:26 Dose: 5,000 unit Documented By: MACKENZIE Hydralazine HCl (Hydralazine Hcl 20 Mg/Ml Vial) 10 mg IVPUSH Q6H PRN; Protocol PRN Reason: sbp greater than 180 Last Admin: 10/30/23 12:10 Dose: 10 mg Documented By: HORTENSIA Comments: Physician approved to administer medication Hydralazine HCl (Hydralazine Hcl 20 Mg/Ml Vial) 5 mg IVPUSH Q6H [facility]; Protocol Last Admin: 11/01/23 09:25 Dose: 5 mg Documented By: MACKENZIE Dextrose (D10) 250 mls @ 750 mls/hr IV Q30M PRN PRN Reason: BG <70 Last Infusion: 10/27/23 22:32 Dose: Infused Documented By: ABIMBOLA Piperacillin Sod/Tazobactam (Sod 2.25 gm/ Sodium Chloride) 50 mls @ 100 mls/hr IV Q6H [facility] Last Infusion: 11/01/23 13:06 Dose: Infused Documented By: MACKENZIE Dextrose (D10) 250 mls @ 750 mls/hr IV Q15M PRN PRN Reason: per Hypoglycemia Standing Ord. Dextrose (D5w) 1,000 mls @ 150 mls/hr IVCONT .Q6H40M [facility] Last Admin: 11/01/23 09:22 Dose: 150 mls/hr Documented By: MACKENZIE Nutrition (Parenteral) (Parenteral Nutrition) 1,800 mls @ 75 mls/hr IV .Q24H [facility]; Protocol Stop: 11/01/23 20:59 Last Admin: 10/31/23 21:53 Dose: 75 mls/hr Documented By: CLAYTON Nutrition (Parenteral) (Parenteral Nutrition) 2,280 mls @ 95 mls/hr IV .Q24H [facility]; Protocol Stop: 11/02/23 20:59 Insulin Glargine (Insulin Glargine,Hum.Rec.Anlog 100 Unit/Ml 10 Ml Vial) 25 unit SUBCUT DAILY [facility] Last Admin: 11/01/23 09:54 Dose: 25 unit Documented By: MACKENZIE Insulin Human Lispro (Insulin Lispro 100 Unit/Ml 3 Ml Vial) 0 unit SUBCUT QIDACHS [facility]; Protocol Last Admin: 11/01/23 12:19 Dose: 10 unit Documented By: MACKENZIE Lidocaine (Lidocaine 4 % Patch Adh..Patch) 1 patch TRANSDERMA DAILY [facility]; Protocol Last Admin: 11/01/23 09:32 Dose: 1 patch Documented By: MACKENZIE Ondansetron HCl (Ondansetron Hcl 4 Mg/2 Ml Vial) 4 mg IVPUSH Q6H PRN PRN Reason: Nausea Last Admin: 10/25/23 17:10 Dose: 4 mg Documented By: MARY JANE Pharmacy Consult (Consult Rx Parenteral Nutrition Ordering) 1 each MISCELLANE DAILY PRN PRN Reason: Consult order Labs 11/01/23 07:56 11/01/23 07:56 Labs: Laboratory Results - last 24 hr 10/31/23 10/31/23 10/31/23 13:30 16:29 20:45 MCV MCH MCHC RDW Plt Count MPV Absolute Nucleated RBC Nucleated RBC % (auto) Anion Gap 13 Estim Creat Clear Calc 17.8 Estimated GFR 11 POC Glucose 130 H 189 H Random Glucose 119 H Calcium 8.2 L Phosphorus Magnesium Albumin 10/31/23 11/01/23 11/01/23 21:00 07:32 07:56 MCV 95.3 MCH 30.3 MCHC 31.8 RDW 13.2 Plt Count 137 L MPV 10.1 Absolute Nucleated RBC 0.000 Nucleated RBC % (auto) 0.0 Anion Gap 16 14 Estim Creat Clear Calc 18.0 18.7 Estimated GFR 11 11 POC Glucose 396 H* Random Glucose 227 H 471 H* Calcium 7.7 L D 7.6 L Phosphorus 3.4 Magnesium 1.8 Albumin 2.9 L 11/01/23 11:47 MCV MCH MCHC RDW Plt Count MPV Absolute Nucleated RBC Nucleated RBC % (auto) Anion Gap Estim Creat Clear Calc Estimated GFR POC Glucose 365 H* Random Glucose Calcium Phosphorus Magnesium Albumin Assessment and Plan (1) Acute hypernatremia: Status: Acute (2) 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 DKA resolved, hyperkalemia resolved, downgraded to medical floor 10/25/23. course copmlicated by acute hypoxia and fevers (not meeting SIRS) Right sided weakness, swallowing problem 2/2 Acute embolic stroke Noted on CT scan, confirmed by MRI to have multiple locations of acute infarcts Echo w bubble not showing VSD\ASD Patient unable to swallow . MEDICAL SCIENTIFIC OFFICER following. Plan for G-tube Friday Neurology input appreciated, multiple acute strokes primarily in the left posterior cerebral territory and one in the right hemisphere as well suggesting embolic etiology start ASA and Plavix (patient unable to tolerate PO, to give [place] Aspirin for now) tolerating PPN for now MEDICAL SCIENTIFIC OFFICER continue to follow with mild improvement w ice chips, to place G-tube Friday if no improvement by tomorrow PT\OT following NATALIA on CKD 5 complicated by acute metabolic acidosis,hyperkalemia, and anemia Cr trending down to 5.3 along with BUN Making good amount of urine Had a session of hemodialysis, Nephrology following, nonoliguric but with urinary retention, has Randolph, Hold on further dialysis now Continue flomax when taking po follow BMP Acute hypernatremia Na of 139 DC IVF Follow BMP Diabetes with DKA Resolved SSI Basal bolus insulin, monitor Dysphagia NPO for now, failed MBSS, follow up speech therapy pending G-tube placement Friday Fever without sepsis and acute hypoxic respiratory failure 2/2 Possible pneumonia covering with IV Zosyn started 10/24 cultures negative DVT prophylaxis with heparin sq Full code reason for continued hospitalization: Not taking p.o., natalia, Acute stroke with dysphagia pending tolerance of diet\G-tube placement Quality Stroke Does the patient have a stroke diagnosis?: No VTE Prior VTE?: No VTE Risk Level:: Medical - moderate - high VTE Device Contraindication: N/A - Device Ordered VTE Drug Contraindication: N/A - Med Ordered
[2023-11-01 16:03] LABS: Glucose, Whole Blood 205 mg/dL (60-115)
[2023-11-01 22:14] LABS: Glucose, Whole Blood 104 mg/dL (60-115)
[2023-11-01] MEDS: Parenteral Nutrition 2,280 ML 95 ML IV (22:39)
[2023-11-02] VITALS (9 sets, daily range): BP systolic 160–186; BP diastolic 44–87; PULSE 70–93; RESP 16–20; TEMP 36–37.2; O2SAT 95–98
[2023-11-02] MEDS: Piperacillin Sodium/Tazobactam 2.25 GM in 0.9 % Sodium Chloride 50 ML IV ×4 (00:23→17:29)
[2023-11-02] MEDS: hydrALAZINE HCl 20 MG/ML VIAL 5 MG IVPUSH ×4 (03:50→21:15)
[2023-11-02 07:03] LABS: Glucose, Whole Blood 330 mg/dL (60-115)
[2023-11-02] MEDS: Heparin Sodium,Porcine 5,000 UNIT/ML VIAL 5000 UNIT SUBCUT ×2 (08:08→21:15)
[2023-11-02] MEDS: Insulin Glargine,Hum.rec.anlog 100 UNIT/ML 10 ML VIAL 25 UNIT SUBCUT (08:09)
[2023-11-02] MEDS: Aspirin 300 MG SUPP.RECT PR (08:09)
[2023-11-02] MEDS: Insulin Lispro 100 UNIT/ML 3 ML VIAL SUBCUT ×4 (08:09→21:16)
[2023-11-02] MEDS: Lidocaine 4 % Patch ADH..PATCH 1 PATCH TRANSDERMA (08:10)
[2023-11-02 10:53] LABS: Anion Gap 19 (12-20); Blood Urea Nitrogen 44 mg/dL (9-16); Carbon Dioxide 19 mmol/L (22-29); Chloride 106 mmol/L (96-108); Potassium 4.2 mmol/L (3.3-5.1); Sodium 140 mmol/L (135-145)
[2023-11-02 10:54] LABS: Glucose, Whole Blood 294 mg/dL (60-115)
[2023-11-02 10:54] LABS: Albumin Level 2.9 g/dL (3.5-5.0); Calcium 8.3 mg/dL (8.4-10.2); Phosphorus 2.8 mg/dL (2.7-4.5)
[2023-11-02 10:57] LABS: Creatinine Clr Calc Pharmacy 18.8; Estimated Glomerular Filt Rate 11; Glucose Random 375 mg/dL (60-115)
--- NOTE | 2023-11-02 11:50 | P.PNIM_ITS ---
Subjective Subjective Date of Service: 11/02/23 Interval History: Seen and evaluated this morning daily improvement in left sided weakness difficulties tolerate PO like ice chips but coughs after that no reported events Review of Systems Review of Systems: Yes all other systems are reviewed and are negative Physical Exam 2 Vital Signs: Vital Signs: Last Vital Signs Temp 97.4 F 11/02/23 11:15 Pulse 93 11/02/23 11:15 Resp 20 11/02/23 11:15 BP 170/64 H 11/02/23 11:15 Pulse Ox 98 11/02/23 11:15 O2 Del Method Room Air 11/02/23 11:15 O2 Flow Rate 2 10/30/23 23:35 Oxygen Flow Rate 2 10/27/23 08:00 BMI result Body Mass Index 35.1 Const: Other: Constitutional : Awake, interactive, not in distress Neck : Normal inspection, Supple Cardiovascular : RRR, no JVP, +1 extremity edema Respiratory : good bilateral air entry, no crackles, wheezes or rhonchi Gastrointestinal: soft, lax, Normal bowel sounds, Non tender Skin : Warm, Dry Neurological : Alert & oriented x3, right homonymous hemianopsia. pronation in LUE w 4+ power, right side normal strength Objective Data Active Medications Acetaminophen (Acetaminophen 325 Mg Tablet) 650 mg PO Q6H PRN PRN Reason: pain or fever Last Admin: 10/27/23 12:43 Dose: 650 mg Documented By: ANKIT Aspirin (Aspirin 300 Mg Supp.Rect) 300 mg DE DAILY [facility] Last Admin: 11/02/23 08:09 Dose: 300 mg Documented By: MACKENZIE Atorvastatin Calcium (Atorvastatin Calcium 80 Mg Tablet) 80 mg PO BEDTIME [facility] Last Admin: 11/01/23 22:19 Dose: Not Given Documented By: BREONNA Non-Admin Reason: NPO Diphenhydramine HCl (Diphenhydramine Hcl 50 Mg/Ml Vial) 25 mg IVPUSH BEDTIME PRN PRN Reason: Insomnia Last Admin: 10/31/23 21:50 Dose: 25 mg Documented By: CLAYTON Heparin Sodium (Porcine) (Heparin Sodium,Porcine 5,000 Unit/Ml Vial) 5,000 unit SUBCUT Q12H [facility] Last Admin: 11/02/23 08:08 Dose: 5,000 unit Documented By: MACKENZIE Hydralazine HCl (Hydralazine Hcl 20 Mg/Ml Vial) 10 mg IVPUSH Q6H PRN; Protocol PRN Reason: sbp greater than 180 Last Admin: 10/30/23 12:10 Dose: 10 mg Documented By: HORTENSIA Comments: Physician approved to administer medication Hydralazine HCl (Hydralazine Hcl 20 Mg/Ml Vial) 5 mg IVPUSH Q6H [facility]; Protocol Last Admin: 11/02/23 08:08 Dose: 5 mg Documented By: MACKENZIE Dextrose (D10) 250 mls @ 750 mls/hr IV Q30M PRN PRN Reason: BG <70 Last Infusion: 10/27/23 22:32 Dose: Infused Documented By: ABIMBOLA Piperacillin Sod/Tazobactam (Sod 2.25 gm/ Sodium Chloride) 50 mls @ 100 mls/hr IV Q6H [facility] Last Admin: 11/02/23 11:36 Dose: 100 mls/hr Documented By: SAMIA Dextrose (D10) 250 mls @ 750 mls/hr IV Q15M PRN PRN Reason: per Hypoglycemia Standing Ord. Nutrition (Parenteral) (Parenteral Nutrition) 2,280 mls @ 95 mls/hr IV .Q24H [facility]; Protocol Stop: 11/02/23 20:59 Last Admin: 11/01/23 22:39 Dose: 95 mls/hr Documented By: BREONNA Nutrition (Parenteral) (Parenteral Nutrition) 2,280 mls @ 95 mls/hr IV .Q24H [facility]; Protocol Stop: 11/03/23 11:44 Insulin Glargine (Insulin Glargine,Hum.Rec.Anlog 100 Unit/Ml 10 Ml Vial) 25 unit SUBCUT DAILY [facility] Last Admin: 11/02/23 08:09 Dose: 25 unit Documented By: MACKENZIE Insulin Human Lispro (Insulin Lispro 100 Unit/Ml 3 Ml Vial) 0 unit SUBCUT QIDACHS [facility]; Protocol Last Admin: 11/02/23 11:36 Dose: 6 unit Documented By: SAMIA Lidocaine (Lidocaine 4 % Patch Adh..Patch) 1 patch TRANSDERMA DAILY [facility]; Protocol Last Admin: 11/02/23 08:10 Dose: 1 patch Documented By: MACKENZIE Ondansetron HCl (Ondansetron Hcl 4 Mg/2 Ml Vial) 4 mg IVPUSH Q6H PRN PRN Reason: Nausea Last Admin: 10/25/23 17:10 Dose: 4 mg Documented By: MARY JANE Pharmacy Consult (Consult Rx Parenteral Nutrition Ordering) 1 each MISCELLANE DAILY PRN PRN Reason: Consult order Labs 11/01/23 07:56 11/02/23 10:18 Labs: Laboratory Results - last 24 hr 11/01/23 11/01/23 11/01/23 07:56 11:47 15:59 Anion Gap Estim Creat Clear Calc Estimated GFR POC Glucose 365 H* 205 H Random Glucose 471 H* Calcium Phosphorus Magnesium Albumin 11/01/23 11/02/23 11/02/23 22:09 07:00 10:18 Anion Gap 19 Estim Creat Clear Calc 18.8 Estimated GFR 11 POC Glucose 104 330 H Random Glucose 375 H* Calcium 8.3 L D Phosphorus 2.8 Magnesium 2.0 Albumin 2.9 L 11/02/23 10:50 Anion Gap Estim Creat Clear Calc Estimated GFR POC Glucose 294 H Random Glucose Calcium Phosphorus Magnesium Albumin Assessment and Plan (1) Acute hypernatremia: Status: Acute (2) Dysphagia: Status: Acute (3) 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 DKA resolved, hyperkalemia resolved, downgraded to medical floor 10/25/23. course copmlicated by acute hypoxia and fevers (not meeting SIRS) Right sided weakness, swallowing problem 2/2 Acute embolic stroke Noted on CT scan, confirmed by MRI to have multiple locations of acute infarcts Echo w bubble not showing VSD\ASD Patient unable to swallow . AIR CONDITIONING UNIT TESTER following. Plan for G-tube Friday Neurology input appreciated, multiple acute strokes primarily in the left posterior cerebral territory and one in the right hemisphere as well suggesting embolic etiology start ASA and Plavix (patient unable to tolerate PO, to give [place] Aspirin for now) tolerating PPN for now AIR CONDITIONING UNIT TESTER continue to follow with mild improvement w ice chips, to place G-tube Friday if no improvement today PT\OT following NATALIA on CKD 5 complicated by acute metabolic acidosis,hyperkalemia, and anemia Had a session of hemodialysis, Nephrology following, nonoliguric but with urinary retention, has Randolph, Hold on further dialysis now Cr trending down to 5.3 along with BUN Making good amount of urine Continue flomax when taking po follow BMP Acute hypernatremia resolved Follow BMP Diabetes with DKA Resolved SSI Basal bolus insulin, monitor Dysphagia NPO for now, failed MBSS, follow up speech therapy pending G-tube placement Friday Fever without sepsis and acute hypoxic respiratory failure 2/2 Possible pneumonia covering with IV Zosyn started 10/24 cultures negative DVT prophylaxis with heparin sq Full code reason for continued hospitalization: Not taking p.o., natalia, Acute stroke with dysphagia pending tolerance of diet\G-tube placement Quality Stroke Does the patient have a stroke diagnosis?: No VTE Prior VTE?: No VTE Risk Level:: Medical - moderate - high VTE Device Contraindication: N/A - Device Ordered VTE Drug Contraindication: N/A - Med Ordered
[2023-11-02] MEDS: Insulin Glargine,Hum.rec.anlog 100 UNIT/ML 10 ML VIAL SUBCUT (12:21)
--- NOTE | 2023-11-02 13:23 | MHC.SL.SWA ---
Dysphasia Diet Status: Continue NPO. Recommending therapeutic trials of ice chips with trained staff/caregivers. Ensure oral care prior to trials. Aspiration precautions include sitting upright, single ice chips at a time, slow rate of administration. Pt is still coughing periodically, even with the ice chips, continue to monitor O2 needs - if regression, may have to pull back from the ice chips. STEREO EQUIPMENT REPAIRER following closely. Based on ice chip trials w/ STEREO EQUIPMENT REPAIRER over the weekend, overall improvement of pt status, and conversation w/ pt and sister - repeat MBSS is recommended at this time. Liquid Consistency and Strategies for Safe Swallow: Liquid Intake Recommendation: NPO Liquid Intake Strategies: Small Sips Solid Food Consistency: Dietary Recommendations: NPO Additional Modifications to Solid Foods: Oral Medication Intake: NPO Please contact the pharmacy regarding appropriate crushable or liquid drug formulations that are available whenever modified delivery is recommended. Compensatory Strategies and Precautions to be Taken for Safe Swallow: Sitting Upright (90 deg) Supervision While Eating and Drinking for Safe Swallow: Total Assistance (1:1) Swallowing Recommended Treatments: Compens. Strategy Educat. Recommendation for Speech: Inpatient Speech Therapy Comment: Intake Recommendations: Route: NPO/Alternate Route Diet Grade: IDDSI Levels: Liquid Consistencies: IDDSI Levels: Post-Study Functional Oral Intake Scale (FOIS): 1- No oral intake Adalid aspiration on thin, nectar thick, and puree consistencies. Patient with protective cough reflex, which did not expel contrast from the airway. Exam was discontinued for patient safety. Based on these observations, recommend patient remain NPO at this time, with continued speech therapy during his inpatient stay and repeat-MBSS when appropriate to evaluate for any changes. Suggested Referrals: The patient might benefit from a referral to: Gastroenterology, Nutrition Services, Medical Team Indication for Referral: Evaluate if patient is candidate for temporary vs. jail alternative means of nutrition/hydration. Therapy Recommendations: Dysphagia Treatment will be continued M-F during inpatient stay, with repeat-MBSS when appropriate Fish Hatchery Assistant Goals: ? The patient will demonstrate improved swallowing function via repeat clinical evaluation, videoendoscopy/videofluoroscopy and/or patient self-rating scores. ? The patient and/or family will participate in further education for swallowing goals. Frequency/Duration: Daily M-F Date Range for Service Req: Timeline to reassess: PRN Day Camp Unit Leader Clinican/Clinical Fellow: No Supervisory Statement: I have reviewed and agree with the student/clinical fellow's documentation: N/A Speech Language Pathologist: Elida Garcia M.A., CCC-STEREO EQUIPMENT REPAIRER
[2023-11-02 16:26] LABS: Glucose, Whole Blood 195 mg/dL (60-115)
[2023-11-02 21:09] LABS: Glucose, Whole Blood 257 mg/dL (60-115)
[2023-11-02] MEDS: Parenteral Nutrition 2,280 ML 95 ML IV (21:19)
[2023-11-03] VITALS (11 sets, daily range): BP systolic 148–206; BP diastolic 50–88; PULSE 70–84; RESP 16–20; TEMP 36.6–36.9; O2SAT 94–99
[2023-11-03] MEDS: Piperacillin Sodium/Tazobactam 2.25 GM in 0.9 % Sodium Chloride 50 ML IV ×3 (00:44→20:25)
[2023-11-03] MEDS: hydrALAZINE HCl 20 MG/ML VIAL 5 MG IVPUSH ×4 (03:27→20:27)
--- NOTE | 2023-11-03 08:04 | PM.EVENT ---
Event Note Date of Service: 11/03/23 Event Note: patient stating that he does not want PEG tube done today as per nurses, pt has been agitated, and kind of belligerent abd soft he does not state exactly why he does not want the PEG done today but says he won't proceed unless he really have to' will hold off on PEG placement for now pt currently on PPN Time Spent With Patient Time: Total time managing care of this patient today ____ minutes.
[2023-11-03 08:12] LABS: Glucose, Whole Blood 600 mg/dL (60-115)
--- NOTE | 2023-11-03 08:22 | MHC.CM.PN ---
EMR REVIEWED, PER SURGICAL NOTES/CHART PT REMAINS ON PPN, DECLINING PEG TUBE PLACEMENT TODAY, CM TO UPDATE ACUTE REHABS AND CONT TO FOLLOW DC NEEDS.
[2023-11-03] MEDS: Lidocaine 4 % Patch ADH..PATCH 1 PATCH TRANSDERMA (08:48)
[2023-11-03] MEDS: Aspirin 300 MG SUPP.RECT PR (08:48)
[2023-11-03] MEDS: Insulin Lispro 100 UNIT/ML 3 ML VIAL SUBCUT ×4 (08:49→21:30)
[2023-11-03] MEDS: hydrALAZINE HCl 20 MG/ML VIAL 10 MG IVPUSH (08:49)
[2023-11-03] MEDS: Insulin Lispro 100 UNIT/ML 3 ML VIAL 10 UNIT SUBCUT (08:49)
[2023-11-03] MEDS: Insulin Glargine,Hum.rec.anlog 100 UNIT/ML 10 ML VIAL 30 UNIT SUBCUT (08:50)
[2023-11-03] MEDS: Heparin Sodium,Porcine 5,000 UNIT/ML VIAL 5000 UNIT SUBCUT ×2 (08:52→20:26)
--- NOTE | 2023-11-03 11:05 | HO.PM.IMPN ---
Subjective Subjective Date of Service: 11/03/23 Interval History: Seen and evaluated this morning daily improvement in left sided weakness difficulties tolerate PO like ice chips, planning MBSS and holding G-tube placement today no reported events Review of Systems Review of Systems: Yes all other systems are reviewed and are negative Physical Exam Vital Signs: Vital Signs: Last Vital Signs Temp 98.1 F 11/03/23 08:00 Pulse 84 11/03/23 08:00 Resp 20 11/03/23 08:00 BP 197/84 H 11/03/23 08:49 Pulse Ox 94 11/03/23 08:00 O2 Del Method Room Air 11/03/23 08:00 O2 Flow Rate 2 10/30/23 23:35 Oxygen Flow Rate 2 10/27/23 08:00 BMI result Body Mass Index 35.1 Const: Other: Constitutional : Awake, interactive, not in distress Neck : Normal inspection, Supple Cardiovascular : RRR, no JVP, +1 extremity edema Respiratory : good bilateral air entry, no crackles, wheezes or rhonchi Gastrointestinal: soft, lax, Normal bowel sounds, Non tender Skin : Warm, Dry Neurological : Alert & oriented x3, right homonymous hemianopsia. pronation in LUE w 4+ power, right side normal strength Objective Data Active Medications Acetaminophen (Acetaminophen 325 Mg Tablet) 650 mg PO Q6H PRN PRN Reason: pain or fever Last Admin: 10/27/23 12:43 Dose: 650 mg Documented By: ANKIT Albuterol/Ipratropium (Albuterol/Iprat 2.5/0.5mg 3 Ml Ampul.Neb) 3 ml INHALE ONCE PRN PRN Reason: wheezing Aspirin (Aspirin 300 Mg Supp.Rect) 300 mg FL DAILY [facility] Last Admin: 11/03/23 08:48 Dose: 300 mg Documented By: HORTENSIA Atorvastatin Calcium (Atorvastatin Calcium 80 Mg Tablet) 80 mg PO BEDTIME [facility] Last Admin: 11/02/23 21:16 Dose: Not Given Documented By: ABIMBOLA Non-Admin Reason: NPO Diphenhydramine HCl (Diphenhydramine Hcl 50 Mg/Ml Vial) 25 mg IVPUSH BEDTIME PRN PRN Reason: Insomnia Last Admin: 10/31/23 21:50 Dose: 25 mg Documented By: CLAYTON Heparin Sodium (Porcine) (Heparin Sodium,Porcine 5,000 Unit/Ml Vial) 5,000 unit SUBCUT Q12H [facility] Last Admin: 11/03/23 08:52 Dose: 5,000 unit Documented By: HORTENSIA Hydralazine HCl (Hydralazine Hcl 20 Mg/Ml Vial) 10 mg IVPUSH Q6H PRN; Protocol PRN Reason: sbp greater than 180 Last Admin: 11/03/23 08:49 Dose: 10 mg Documented By: HORTENSIA Hydralazine HCl (Hydralazine Hcl 20 Mg/Ml Vial) 5 mg IVPUSH Q6H [facility]; Protocol Last Admin: 11/03/23 08:48 Dose: 5 mg Documented By: HORTENSIA Dextrose (D10) 250 mls @ 750 mls/hr IV Q30M PRN PRN Reason: BG <70 Last Infusion: 10/27/23 22:32 Dose: Infused Documented By: ABIMBOLA Piperacillin Sod/Tazobactam (Sod 2.25 gm/ Sodium Chloride) 50 mls @ 100 mls/hr IV Q6H [facility] Last Admin: 11/03/23 05:53 Dose: Not Given Documented By: ABIMBOLA Non-Admin Reason: Patient Refused Dextrose (D10) 250 mls @ 750 mls/hr IV Q15M PRN PRN Reason: per Hypoglycemia Standing Ord. Nutrition (Parenteral) (Parenteral Nutrition) 2,280 mls @ 95 mls/hr IV .Q24H [facility]; Protocol Stop: 11/03/23 20:59 Last Admin: 11/02/23 21:19 Dose: 95 mls/hr Documented By: ABIMBOLA Insulin Glargine (Insulin Glargine,Hum.Rec.Anlog 100 Unit/Ml 10 Ml Vial) 30 unit SUBCUT DAILY [facility] Last Admin: 11/03/23 08:50 Dose: 30 unit Documented By: HORTENSIA Insulin Human Lispro (Insulin Lispro 100 Unit/Ml 3 Ml Vial) 0 unit SUBCUT QIDACHS [facility]; Protocol Last Admin: 11/03/23 08:49 Dose: 10 unit Documented By: HORTENSIA Lidocaine (Lidocaine 4 % Patch Adh..Patch) 1 patch TRANSDERMA DAILY [facility]; Protocol Last Admin: 11/03/23 08:48 Dose: 1 patch Documented By: HORTENSIA Ondansetron HCl (Ondansetron Hcl 4 Mg/2 Ml Vial) 4 mg IVPUSH Q6H PRN PRN Reason: Nausea Last Admin: 10/25/23 17:10 Dose: 4 mg Documented By: MARY JANE Pharmacy Consult (Consult Rx Parenteral Nutrition Ordering) 1 each MISCELLANE DAILY PRN PRN Reason: Consult order Labs 11/01/23 07:56 11/02/23 10:18 Labs: Laboratory Results - last 24 hr 11/02/23 11/02/23 11/03/23 16:11 21:06 08:06 POC Glucose 195 H 257 H 600 H* Assessment and Plan (1) Acute hypernatremia: Status: Acute (2) 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 DKA resolved, hyperkalemia resolved, downgraded to medical floor 10/25/23. course copmlicated by acute hypoxia and fevers (not meeting SIRS) Right sided weakness, swallowing problem 2/2 Acute embolic stroke Noted on CT scan, confirmed by MRI to have multiple locations of acute infarcts Echo w bubble not showing VSD\ASD Neurology input appreciated, multiple acute strokes primarily in the left posterior cerebral territory and one in the right hemisphere as well suggesting embolic etiology start ASA and Plavix (patient unable to tolerate PO, to give [place] Aspirin for now) tolerating PPN for now ASSISTED LIVING HOME DIRECTOR continue to follow with mild improvement w ice chips, to hold on G-tube and try MBSS today PT\OT following NATALIA on CKD 5 complicated by acute metabolic acidosis,hyperkalemia, and anemia Had a session of hemodialysis, Nephrology following, nonoliguric but with urinary retention, has Randolph, Hold on further dialysis now Cr trending down to 5.3 along with BUN Making good amount of urine Continue flomax when taking po remove CVC follow BMP Acute hypernatremia resolved Follow BMP Hyperglycemia 2/2 Diabetes with DKA Increase Lantus to 35 give extra Lantus dose SSI Basal bolus insulin, monitor Dysphagia NPO for now, failed MBSS, follow up speech therapy, hold G-tube placement Fever without sepsis and acute hypoxic respiratory failure 2/2 aspiration pneumonia covering with IV Zosyn started 10/24, to finish 10 days by tomorrow cultures negative DVT prophylaxis with heparin sq Full code reason for continued hospitalization: Not taking p.o., natalia, Acute stroke with dysphagia pending tolerance of diet\G-tube placement Quality Stroke Does the patient have a stroke diagnosis?: No VTE Prior VTE?: No VTE Risk Level:: Medical - moderate - high VTE Device Contraindication: N/A - Device Ordered VTE Drug Contraindication: N/A - Med Ordered
[2023-11-03 11:31] LABS: Albumin Level 3.1 g/dL (3.5-5.0); Anion Gap 18 (12-20); Blood Urea Nitrogen 51 mg/dL (9-16); Calcium 8.6 mg/dL (8.4-10.2); Carbon Dioxide 17 mmol/L (22-29); Chloride 107 mmol/L (96-108); Magnesium 2.3 mg/dL (1.6-2.6); Phosphorus 2.6 mg/dL (2.7-4.5); Potassium 5.2 mmol/L (3.3-5.1); Sodium 137 mmol/L (135-145)
--- NOTE | 2023-11-03 11:43 | MHC.CLN ---
F/U PT CONTINUES ON PPN PT REFUSED PEG PLACEMENT TODAY REVIEWED LABS DISCUSSED WITH PHARMACY RECOMMEND CONTINUING PPN AT MAX GOAL RATE 95ML/HR WITH 75G LIPIDS PROVIDES 1913 TOTAL KCALS, 228G DEXTROSE, 97G PROTEIN (1.2G/KG) REPLETE LYTES NEEDED
[2023-11-03 11:47] LABS: Creatinine Clr Calc Pharmacy 17.7; Estimated Glomerular Filt Rate 11; Glucose Random 554 mg/dL (60-115)
[2023-11-03 11:47] LABS: Glucose, Whole Blood 471 mg/dL (60-115)
--- NOTE | 2023-11-03 12:02 | P.PNNP_ITS ---
Subjective Subjective Date of Service: 11/03/23 Interval history: Seen and evaluated this morning ; daily improvement in left sided weakness Physical Exam 2 Vital Signs: Vital Signs: Last Vital Signs Temp 97.9 F 11/03/23 11:02 Pulse 82 11/03/23 11:02 Resp 20 11/03/23 11:02 BP 168/74 H 11/03/23 11:02 Pulse Ox 97 11/03/23 11:02 O2 Del Method Room Air 11/03/23 11:02 O2 Flow Rate 2 10/30/23 23:35 Oxygen Flow Rate 2 10/27/23 08:00 BMI result Body Mass Index 35.1 Const: General: no acute distress Resp: Auscultation: diminished lung sounds Cardio: Rate: regular rate GI: Palpation (GI): Soft to palpation Neuro: General: moves all extremities Objective Data Labs 11/01/23 07:56 11/03/23 11:00 Labs: Laboratory Results - last 24 hr 11/02/23 11/02/23 11/03/23 16:11 21:06 08:06 Sodium Potassium Chloride Carbon Dioxide Anion Gap BUN Creatinine Estim Creat Clear Calc Estimated GFR POC Glucose 195 H 257 H 600 H* Random Glucose Calcium Phosphorus Magnesium Albumin 11/03/23 11/03/23 11:00 11:06 Sodium 137 Potassium 5.2 H D Chloride 107 Carbon Dioxide 17 L Anion Gap 18 BUN 51 H Creatinine 5.63 H* Estim Creat Clear Calc 17.7 Estimated GFR 11 POC Glucose 471 H* Random Glucose 554 H* Calcium 8.6 Phosphorus 2.6 L Magnesium 2.3 Albumin 3.1 L Microbiology Microbiology Results: Microbiology 10/24/23 19:12 Blood - Venous Blood Culture - Final No growth after 5 days. 10/24/23 18:51 Blood - Venous Blood Culture - Final No growth after 5 days. Procedures Date of Service Date of Service: 11/03/23 Assessment & Plan Assessment and plan (1) Acute on chronic kidney failure: Status: Acute Plan 53-year-old man with stage IV CKD admitted with severe hyperkalemia due to diabetic ketoacidosis. He underwent emergency dialysis ; nonoliguric. Renal functions improved & stable; no further dialysis for now Could discontinue his dialysis catheter. Continue with rest of his current management labs AM; Shall F/U Progress Note: Quality Stroke Does the patient have a stroke diagnosis?: No
[2023-11-03] MEDS: Insulin Glargine,Hum.rec.anlog 100 UNIT/ML 10 ML VIAL 10 UNIT SUBCUT (12:29)
--- NOTE | 2023-11-03 15:28 | MHC.SLORD ---
Speech Language Pathology Order Status: MBSS order received. Unable to schedule with Radiology today, 11/02. MD notified, will plan for tomorrow. Pt and caregiver upset when receiving the news.
[2023-11-03 16:46] LABS: Glucose, Whole Blood 134 mg/dL (60-115)
--- NOTE | 2023-11-03 17:10 | HO.WOUND ---
Wound Consult: Initial Attempted 53yr old [place] [facility] [place] See progress notes and H&P for detailed history.? Wound consult placed for Right Buttock wound.?Arrival to bedside patient was irritataed and refused assessment. We discussed my role and the benefits of allowing me to assess his skin - he came increasingly agitated and refused my services. Will attempt future assessment when patient is agreeable. Direct care nurse aware.
--- NOTE | 2023-11-03 20:22 | PC.NURSE ---
Patient refusing care, refusing q2hr repos, refusing medications at this time, aware came to bedside. MD/RN provided education and the patient continues to be resistive to care. screaming/ yelling at caregivers Patient refused to get Ultrasound guided, MD aware.
[2023-11-03 21:31] LABS: Glucose, Whole Blood 77 mg/dL (60-115)
[2023-11-03] MEDS: Parenteral Nutrition 2,280 ML 95 ML IV (22:29)
[2023-11-04] VITALS (10 sets, daily range): BP systolic 140–185; BP diastolic 47–76; PULSE 77–109; RESP 18–20; TEMP 36.3–36.9; O2SAT 96–98; BMI 34.9
[2023-11-04] MEDS: hydrALAZINE HCl 20 MG/ML VIAL 5 MG IVPUSH (02:06)
[2023-11-04 07:07] LABS: Glucose, Whole Blood 392 mg/dL (60-115)
[2023-11-04] MEDS: hydrALAZINE HCl 20 MG/ML VIAL 10 MG IVPUSH ×3 (08:03→20:23)
[2023-11-04] MEDS: Heparin Sodium,Porcine 5,000 UNIT/ML VIAL 5000 UNIT SUBCUT ×2 (08:03→20:22)
[2023-11-04] MEDS: Insulin Lispro 100 UNIT/ML 3 ML VIAL SUBCUT ×8 (08:04→20:21)
[2023-11-04] MEDS: Insulin Glargine,Hum.rec.anlog 100 UNIT/ML 10 ML VIAL 35 UNIT SUBCUT (08:04)
[2023-11-04 08:45] LABS: Anion Gap 19 (12-20); Blood Urea Nitrogen 56 mg/dL (9-16); Calcium 8.5 mg/dL (8.4-10.2); Carbon Dioxide 18 mmol/L (22-29); Chloride 107 mmol/L (96-108); Creatinine Clr Calc Pharmacy 17.7; Estimated Glomerular Filt Rate 11; Glucose Random 463 mg/dL (60-115); Magnesium 2.4 mg/dL (1.6-2.6); Phosphorus 4.1 mg/dL (2.7-4.5); Potassium 5.5 mmol/L (3.3-5.1); Sodium 138 mmol/L (135-145)
--- NOTE | 2023-11-04 10:07 | MHC.SPEECHCO ---
MBSS scheduled with Radiology for 12:30 today. Radiology will arrange for transport in wheelchair.
--- NOTE | 2023-11-04 10:16 | P.PNNP_ITS ---
Subjective Subjective Date of Service: 11/04/23 Interval history: Events noted. On parenteral nutrition. Peg placement on hold Physical Exam 2 Vital Signs: Vital Signs: Last Vital Signs Temp 98.5 F 11/04/23 07:37 Pulse 77 11/04/23 07:37 Resp 20 11/04/23 07:37 BP 170/66 H 11/04/23 08:03 Pulse Ox 98 11/04/23 07:37 O2 Del Method Room Air 11/04/23 07:37 O2 Flow Rate 2 10/30/23 23:35 Oxygen Flow Rate 2 10/27/23 08:00 BMI result Body Mass Index 34.9 Const: General: ill appearing Neck: Neck: Yes supple Resp: Auscultation: clear to auscultation bilaterally Cardio: Palpation: no palpable S3 Heart sounds: no rubs GI: Palpation (GI): Soft to palpation Auscultation: normal bowel sounds Neuro: Motor exam (neuro): no asterixis Objective Data Labs 11/01/23 07:56 11/04/23 07:23 Labs: Laboratory Results - last 24 hr 11/03/23 11/03/23 11/03/23 11:00 11:06 16:41 Hold Purple Top Sodium 137 Potassium 5.2 H D Chloride 107 Carbon Dioxide 17 L Anion Gap 18 BUN 51 H Creatinine 5.63 H* Estim Creat Clear Calc 17.7 Estimated GFR 11 POC Glucose 471 H* 134 H Random Glucose 554 H* Calcium 8.6 Phosphorus 2.6 L Magnesium 2.3 Albumin 3.1 L 11/03/23 11/04/23 11/04/23 21:26 07:03 07:23 Hold Purple Top SEE NOTE Sodium 138 Potassium 5.5 H Chloride 107 Carbon Dioxide 18 L Anion Gap 19 BUN 56 H Creatinine 5.62 H* Estim Creat Clear Calc 17.7 Estimated GFR 11 POC Glucose 77 392 H* Random Glucose 463 H* Calcium 8.5 Phosphorus 4.1 Magnesium 2.4 Albumin 3.0 L Microbiology Microbiology Results: Microbiology 10/24/23 19:12 Blood - Venous Blood Culture - Final No growth after 5 days. 10/24/23 18:51 Blood - Venous Blood Culture - Final No growth after 5 days. Procedures Date of Service Date of Service: 11/04/23 Assessment & Plan Assessment and plan (1) Acute on chronic kidney failure: Status: Acute (2) Acute hyperkalemia: Status: Acute Plan 53-year-old man with stage IV CKD admitted with severe hyperkalemia due to diabetic ketoacidosis. He underwent emergency dialysis in potassium stance corrected. He is currently nonoliguric. Blood sugar need better control. Severe anemia due to CKD. Iron stores were adequate in September. Epogen per protocol Would administer another dose today Mild metabolic acidosis s/p Mild hypernatremia due to free water deficit needs to increase p.o. water intake. Corrected with hypotonic fluids Mild hyperkalemia Discontinue potassium supplementation in TPN Kayexalate enema since he can not take orally. Time Spent With Patient Time: Total time managing care of this patient today ____ minutes. Progress Note: Quality Stroke Does the patient have a stroke diagnosis?: No
--- NOTE | 2023-11-04 10:31 | MHC.CLN ---
F/U PT CONTINUES ON PPN PEG PLACEMENT ON HOLD REVIEWED LABS DISCUSSED WITH PHARMACY AND PROVIDER-HOLDING K+ R/T RENAL FUNCTION RECOMMEND CONTINUING PPN AT MAX GOAL RATE 95ML/HR WITH 75G LIPIDS PROVIDES 1913 TOTAL KCALS, 228G DEXTROSE, 97G PROTEIN (1.2G/KG) REPLETE LYTES NEEDED
[2023-11-04 10:59] LABS: Glucose, Whole Blood 433 mg/dL (60-115)
--- NOTE | 2023-11-04 11:26 | P.PNIM_ITS ---
Subjective Subjective Date of Service: 11/04/23 Interval History: Seen and evaluated this morning overall improvement in left sided weakness difficulties tolerate PO like ice chips, planning MBSS today no reported events Review of Systems Review of Systems: Yes all other systems are reviewed and are negative Physical Exam 2 Vital Signs: Vital Signs: Last Vital Signs Temp 97.9 F 11/04/23 11:12 Pulse 90 11/04/23 11:12 Resp 18 11/04/23 11:12 BP 156/60 H 11/04/23 11:12 Pulse Ox 97 11/04/23 11:12 O2 Del Method Room Air 11/04/23 11:12 O2 Flow Rate 2 10/30/23 23:35 Oxygen Flow Rate 2 10/27/23 08:00 BMI result Body Mass Index 34.9 Const: Other: Constitutional : Awake, interactive, not in distress Neck : Normal inspection, Supple Cardiovascular : RRR, no JVP, +1 extremity edema Respiratory : good bilateral air entry, no crackles, wheezes or rhonchi Gastrointestinal: soft, lax, Normal bowel sounds, Non tender Skin : Warm, Dry Neurological : Alert & oriented x3, right homonymous hemianopsia. pronation in LUE w 4+ power, right side normal strength Objective Data Active Medications Acetaminophen (Acetaminophen 325 Mg Tablet) 650 mg PO Q6H PRN PRN Reason: pain or fever Last Admin: 10/27/23 12:43 Dose: 650 mg Documented By: ANKIT Albuterol/Ipratropium (Albuterol/Iprat 2.5/0.5mg 3 Ml Ampul.Neb) 3 ml INHALE ONCE PRN PRN Reason: wheezing Aspirin (Aspirin 300 Mg Supp.Rect) 300 mg MD DAILY [facility] Last Admin: 11/04/23 08:15 Dose: Not Given Documented By: FREDERICK Non-Admin Reason: Patient Refused Atorvastatin Calcium (Atorvastatin Calcium 80 Mg Tablet) 80 mg PO BEDTIME [facility] Last Admin: 11/03/23 22:10 Dose: Not Given Documented By: IVONNE Non-Admin Reason: NPO Diazepam (Diazepam 10 Mg/2 Ml Cartridge) 5 mg IVPUSH Q6H PRN PRN Reason: Anxiety Diphenhydramine HCl (Diphenhydramine Hcl 50 Mg/Ml Vial) 25 mg IVPUSH BEDTIME PRN PRN Reason: Insomnia Last Admin: 10/31/23 21:50 Dose: 25 mg Documented By: CLAYTON Haloperidol Lactate (Haloperidol Lactate 5 Mg/Ml Vial) 5 mg IM ONCE PRN PRN Reason: anxiety/restlessness Heparin Sodium (Porcine) (Heparin Sodium,Porcine 5,000 Unit/Ml Vial) 5,000 unit SUBCUT Q12H [facility] Last Admin: 11/04/23 08:03 Dose: 5,000 unit Documented By: FREDERICK Hydralazine HCl (Hydralazine Hcl 20 Mg/Ml Vial) 10 mg IVPUSH Q6H PRN; Protocol PRN Reason: sbp greater than 180 Last Admin: 11/03/23 08:49 Dose: 10 mg Documented By: HORTENSIA Hydralazine HCl (Hydralazine Hcl 20 Mg/Ml Vial) 10 mg IVPUSH Q6H [facility]; Protocol Last Admin: 11/04/23 08:03 Dose: 10 mg Documented By: FREDERICK Dextrose (D10) 250 mls @ 750 mls/hr IV Q30M PRN PRN Reason: BG <70 Last Infusion: 10/27/23 22:32 Dose: Infused Documented By: ABIMBOLA Dextrose (D10) 250 mls @ 750 mls/hr IV Q15M PRN PRN Reason: per Hypoglycemia Standing Ord. Nutrition (Parenteral) (Parenteral Nutrition) 2,280 mls @ 95 mls/hr IV .Q24H [facility]; Protocol Stop: 11/04/23 20:59 Last Admin: 11/03/23 22:29 Dose: 95 mls/hr Documented By: COLASJavier Dextrose (D10) 250 mls @ 750 mls/hr IV Q15M PRN PRN Reason: per Hypoglycemia Standing Ord. Nutrition (Parenteral) (Parenteral Nutrition) 2,280 mls @ 95 mls/hr IV .Q24H [facility]; Protocol Stop: 11/05/23 20:59 Insulin Glargine (Insulin Glargine,Hum.Rec.Anlog 100 Unit/Ml 10 Ml Vial) 35 unit SUBCUT DAILY [facility] Last Admin: 11/04/23 08:04 Dose: 35 unit Documented By: FREDERICK Insulin Human Lispro (Insulin Lispro 100 Unit/Ml 3 Ml Vial) 0 unit SUBCUT QIDACHS [facility]; Protocol Last Admin: 11/04/23 08:04 Dose: 10 unit Documented By: FREDERICK Insulin Human Lispro (Insulin Lispro 100 Unit/Ml 3 Ml Vial) 5 unit SUBCUT QIDACHS [facility] Last Admin: 11/04/23 08:04 Dose: 5 unit Documented By: FREDERICK Lidocaine (Lidocaine 4 % Patch Adh..Patch) 1 patch TRANSDERMA DAILY [facility]; Protocol Last Admin: 11/04/23 08:15 Dose: Not Given Documented By: FREDERICK Non-Admin Reason: Patient Refused Ondansetron HCl (Ondansetron Hcl 4 Mg/2 Ml Vial) 4 mg IVPUSH Q6H PRN PRN Reason: Nausea Last Admin: 10/25/23 17:10 Dose: 4 mg Documented By: MARY JANE Pharmacy Consult (Consult Rx Parenteral Nutrition Ordering) 1 each MISCELLANE DAILY PRN PRN Reason: Consult order Labs 11/01/23 07:56 11/04/23 07:23 Labs: Laboratory Results - last 24 hr 11/03/23 11/03/23 11/03/23 11:00 11:06 16:41 Hold Purple Top Anion Gap 18 Estim Creat Clear Calc 17.7 Estimated GFR 11 POC Glucose 471 H* 134 H Random Glucose 554 H* Calcium 8.6 Phosphorus 2.6 L Magnesium 2.3 Albumin 3.1 L 11/03/23 11/04/23 11/04/23 21:26 07:03 07:23 Hold Purple Top SEE NOTE Anion Gap 19 Estim Creat Clear Calc 17.7 Estimated GFR 11 POC Glucose 77 392 H* Random Glucose 463 H* Calcium 8.5 Phosphorus 4.1 Magnesium 2.4 Albumin 3.0 L 11/04/23 10:52 Hold Purple Top Anion Gap Estim Creat Clear Calc Estimated GFR POC Glucose 433 H* Random Glucose Calcium Phosphorus Magnesium Albumin Assessment and Plan (1) Acute hypernatremia: Status: Acute (2) Dysphagia: Status: Acute (3) 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 DKA resolved, hyperkalemia resolved, downgraded to medical floor 10/25/23. 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 continue to follow with mild improvement w ice chips, to hold on G-tube and try MBSS today PT\OT following will need behavioural therapy evaluation for signs of depression and anxiety related to new stroke diagnosis NATALIA on CKD 5 complicated by acute metabolic acidosis,hyperkalemia, and anemia Had a session of hemodialysis, Nephrology following, nonoliguric but with urinary retention, has Randolph, Hold on further dialysis now Cr at 5.6 , BUN 56 Making fair amount of urine Continue flomax when taking po To remove CVC once we secure peripheral IV follow BMP Acute Hyperkalemia K of 5.5 IV Insulin and D50 repeat BMP this afternoon Nephro following for need of urgent dialysis Acute hypernatremia resolved Follow BMP Hyperglycemia 2/2 Diabetes with DKA Increase Lantus to 35 give extra Lantus dose SSI Basal bolus insulin, monitor Dysphagia NPO for now, failed MBSS, follow up speech therapy, hold G-tube placement Fever without sepsis and acute hypoxic respiratory failure 2/2 aspiration pneumonia covering with IV Zosyn started 10/24, to finish 10 days by tomorrow cultures negative DVT prophylaxis with heparin sq Full code reason for continued hospitalization: Not taking p.o., natalia, Acute stroke with dysphagia pending tolerance of diet\G-tube placement Quality Stroke Does the patient have a stroke diagnosis?: No VTE Prior VTE?: No VTE Risk Level:: Medical - moderate - high VTE Device Contraindication: N/A - Device Ordered VTE Drug Contraindication: N/A - Med Ordered
--- NOTE | 2023-11-04 11:27 | MHC.CM.PN ---
cm met w/pt who reports he will not go to acute/str, pt would like to go home w/services, per sister referral to ec to determine eligibility, [facility] reporting they do now have speech available, and pt would need speech/ot/pt/sn, mbs scheduled for 12:30pm, cm will cont to follow dc needs.
[2023-11-04] MEDS: Insulin Regular, Human 100 UNIT/ML 3 ML VIAL 10 UNIT IVPUSH (11:36)
[2023-11-04 15:01] LABS: Anion Gap 21 (12-20); Blood Urea Nitrogen 72 mg/dL (9-16); Calcium 8.3 mg/dL (8.4-10.2); Carbon Dioxide 16 mmol/L (22-29); Chloride 107 mmol/L (96-108); Creatinine Clr Calc Pharmacy 17.3; Estimated Glomerular Filt Rate 10; Glucose Random 449 mg/dL (60-115); Potassium 5.5 mmol/L (3.3-5.1); Sodium 138 mmol/L (135-145)
--- NOTE | 2023-11-04 15:31 | MHC.SL.IMP ---
Date of Plan of Treatment: 11/04/23 Onset of Symptoms/Illness: 10/20/23 Date Treatment Started: 10/27/23 Admitting Diagnosis: Acute [facility] CONSULTANT CVA Primary Speech & Language Diagnosis: R13.12 Oropharyngeal Phase Dysphagia Secondary Speech & Language Diagnosis: Reason for Today's Visit: 10989 Modified Barium Swallow Study Comments: Patient was awake and alert, repositioned to sit upright in bed for PO trials. Patient was able to feed himself. He reports having trouble swallowing for the past week since being in the hospital. Patient did not elaborate on this much with questioning, but did state, I just have to get used to things going down. Patient also expressing feeling very thirsty, I could drink a whole gallon of water now. Pre-evaluation Dietary Consistencies: NPO Pre-evaluation Liquid Consistency: NPO Pre-evaluation Medication Administration: NPO Medical History: Comments: Modified Barium Swallow Study Fluoroscopic Evaluation of Swallowing Function CPT Code 88360 Evaluation Year: 2023 Reason for Study: Pt displays overt s/s of aspiration at bedside. Referring Physician: Sal Barreto MD Evaluating Clinician: Ileana Reno MA, CCC-WOODEN BOAT BUILDER Study Number: 1 Patient Name: Howard Chino Status: Inpatient Age: 53 Gender: Male Medical History Medical History (Updated 10/24/23 @ 23:13 by Brenna Rodríguez NP) Metabolic acidosis Right foot ulcer Anxiety History of foot ulcer Obesity (BMI 30-39.9) Depression Rotator cuff arthropathy of left shoulder Vitamin D deficiency Allergic rhinitis Anemia Pure hypercholesterolemia Benign essential hypertension Diabetic polyneuropathy Type 2 diabetes mellitus with diabetic chronic kidney disease Erectile dysfunction Type 2 diabetes mellitus with hyperglycemia, with long-term current use of insulin Type 2 diabetes mellitus with diabetic polyneuropathy Type 2 diabetes mellitus with chronic kidney disease 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 LDL goal <70 Surgical History History of nasal surgery Current (pre-evaluation) Intake/Diet: Route: NPO Pre-Study Functional Oral Intake Scale (FOIS): 1- No oral intake Pain: None reported at time of study [facility] Risk Assessment Score: Oral Motor Exam Facial Symmetry: Normal for Patient Symmetrical Facial Movement: Controlled Oral-Facial Facial Miscellaneous Observations: Mouth Occlusion: Normal Oral-Facial Teeth Characteristics: Intact/Normal Oral-Facial Teeth Miscellaneous Observation: Oral-Facial Lip Pucker Description: Normal Oral-Facial Smile (Lips) Description: Normal Oral-Facial Puff Cheeks Description: Normal Oral-Facial Lip Miscellaneous Comment: Tongue Size: Normal Tongue Frenum Length: Tongue Excursion Description: Normal Tongue Range of Movement Description: Normal Tongue Speed of Movement Description: Normal Tongue Strength of Movement (against opposing pressure): Normal Tongue Movement Characteristics: Normal/Absent Tongue Movement Miscellaneous Observation: Oral Expression Ability: No Impairment Is patient able to manage secretions?: Yes Is patient able to produce volitional cough?: Yes Food and Liquid Trials: Oral Impairment: Lip Closure: 0=No labial escape Oral Impairment: Tongue Control During Bolus Hold: Did not test Oral Impairment: Bolus Preparation/Mastication: 1=Slow prolonged chewing/mashing with complete re-collection Oral Impairment: Bolus Transport/Lingual Motion: 1= Delayed initiation of tongue motion Oral Impairment: Oral Residue: 2=Residue collection on oral structures Oral Impairment:Initiation of Pharyngeal Swallow: 3=Bolus head in pyriforms Pharyngeal Impairment: Soft Palate Elevation: 0=No bolus between soft palate (SP)/pharyngeal wall (PW) Pharyngeal Impairment: Laryngeal Elevation: 1=Partial thyroid cartilage/arytenoids to epiglottic petiole movement Pharyngeal Impairment: Anterior Hyoid Excursion: 1=Partial anterior movement Pharyngeal Impairment: Epiglottic Movement: 0=Complete inversion Pharyngeal Impairment: Laryngeal Vestibular Closure:: 1=Incomplete: narrow column air/contrast in laryngeal vestibule Pharyngeal Impairment: Pharyngeal Stripping Wave: 0=Present: complete Pharyngeal Impairment: Pharyngeal Contraction: Did not test Pharyngeal Impairment: Pharyngoesophageal Segment Openin=Complete distension and complete duration: no obstruction of flow Pharyngeal Impairment: Tongue Base (TB) Retraction: 1=Trace column of contrast/air between TB and posterior PW Pharyngeal Impairment: Pharyngeal Residue: 2=Collection of residue within or on pharyngeal structures Pharyngeal Impairment: Esophageal Clearance Upright Position: Did not test Impressions and Recommendations Clinical Observations: Time-out: performed at 12:15 Evaluation Start: 12:30; Stop: 12:45 Patient Positioning: Seated 70-90 degrees Viewing Planes: LATERAL ONLY Contrast: MBSImP? Standardized Protocol using commercially prepared, standardized Barium viscosities, including: Varibar? THIN LIQUID (40% w/v, <15 cps) , Varibar? NECTAR (40% w/v, <150-450 cps) , Varibar? PUDDING (40% w/v, <0589-2745 cps) , 1/2 Shortbread Cookie (1 x1 x.25 ) [facility]: [id number] [facility] Results: Lip closure for intraoral bolus containment resulted in interlabial escape, without progression to the anterior lip. Tongue control during bolus hold maintained a cohesive bolus held between tongue to palate seal. Bolus preparation and mastication resulted in slow, prolonged chewing/mashing but with complete re-collection. Bolus transport/lingual motion demonstrated delayed initiation of tongue motion. Oral residue was a collection on oral structures. Initiation of the pharyngeal swallow occurred when the bolus head was in the pyriform sinuses. Soft palate elevation resulted in no bolus between the soft palate and the pharyngeal wall. Laryngeal elevation was decreased, with partial superior movement of the thyroid cartilage/partial approximation of the arytenoids to the epiglottic petiole. Anterior hyoid excursion demonstrated partial anterior movement. Epiglottic movement resulted in complete inversion. Laryngeal vestibular closure was incomplete, with a narrow column of air/contrast noted within the laryngeal vestibule at the height of the swallow. Pharyngeal stripping wave was present and complete. Pharyngeal contraction could not be determined due to logistical reasons not related to physiologic impairment. Pharyngoesophageal segment opening was completely distended for complete duration with no obstruction of bolus flow. Tongue base retraction allowed a trace column of contrast or air between the retracted tongue base and the posterior pharyngeal wall. Pharyngeal residue was a collection of residue within or on pharyngeal structures. Esophageal clearance in the upright position could not be assessed due to logistical reasons not related to physiologic impairment. SUMMARY: Today?s study demonstrated improvement in his swallowing. Using the MBSImP scoring he improved to an overall Orall and Pharyngeal Impairment score of 12.Esophageal components were not addressed in either study. He did demonstrate an aspiration event during the study when drinking thin liquids after solid residue was present in his vallecular space. This caused the contrast to significantly pool in his pyriform sinuses prior to swallow initiation and resulted in aspiration below the vocal folds with a delayed cough. When given nectar thick liquids under the same condition (with pharyngeal residue present), the aspiration was eliminated with flash penetration only. Of note subsequent sips of Buckeye-Thick Liquids helped to clear remaining pharyngeal residue. Given that he demonstrated only mild penetration for thin liquids without the presence of pharyngeal residue, he may be a good candidate for the Jonas Free Water Protocol. Further education and handouts were provided to the Pt and his Sister after the study was completed. Liquid Intake Recommendation: NPO Liquid Intake Strategies: Small Sips Dietary Recommendations: Chopped/Advanced (NDD3) Medication Administration: NPO Please contact the pharmacy regarding appropriate crushable or liquid drug formulations that are available whenever modified delivery is recommended. Compensatory Strategies Recommended: Sitting Upright (90 deg) Supervision during eating and or drinking: Total Assistance (1:1) Recommended Treatments: Compens. Strategy Educat. Recommendation for Speech Therapy: Inpatient Speech Therapy Speech Therapy through [facility] Text Comment: The following exercises have been used in therapy and improvement(s) in swallowing function was/were seen today: Effortful Swallow eliminated Aspiration Clarissa Maneuver eliminated Aspiration PLAN: Intake Recommendations: Route: PO Diet Grade: IDDSI Levels: 6-Soft & Bite-Sized Liquid Consistencies: IDDSI Levels: 2-Mildly Thick Post-Study Functional Oral Intake Scale (FOIS): 5- Total oral intake of multiple consistencies requiring special preparation xxx Therapy Recommendations: Therapy will be continued The following compensatory strategies and/or therapeutic exercises will be part of the upcoming therapy/management plan: Buckeye-thick Liquid Bolus Volume Change Additional Swallow(s) per Bolus Effortful Swallow Prognosis for Improvement: The prognosis for the patient to meet nutritional needs by mouth is good based on degree of impairment, stimulability for treatment, level of motivation, support system. Patient's Personal Goals: Establish diet so he can be discharged. [facility]ci Goals: ? The patient will tolerate the least restrictive diet with a safe/efficient swallow to maintain adequate nutrition and hydration. ? The patient will demonstrate improved swallowing function via repeat clinical evaluation, videoendoscopy/videofluoroscopy and/or patient self-rating scores. ? The patient and/or family will participate in further education for swallowing goals. Short Term Goals: ? Diet - The patient will tolerate a IDDSI Level 6 diet with nectar thick liquids without signs or symptoms of penetration/aspiration 90% of the time. - The patient will participate in therapeutic PO trials with the WOODEN BOAT BUILDER. ? Guidelines - The patient will comply with/recall the following guidelines/strategies 90% of the time with moderate cuing: Buckeye-thick Liquid, Bolus Volume Change, Effortful Swallow (used during PO intake), 90. ? Independent Home Exercise ? Structured Therapy - The patient will demonstrate 90% accuracy and require moderate cuing in structured swallowing therapy with the WOODEN BOAT BUILDER using the following exercises/therapy approaches and therapy assisted devices: Travis Maneuver, Shaker Head Lifts, Clarissa Maneuver, . ? Education - The patient, caregiver will verbalize/demonstrate understanding of the results of this evaluation, the above recommendations, and the swallowing guidelines. Frequency/Duration: Daily M-F Date Range for Service Requested: Timeline to reassess: PRN Marketing Lead Clinician/Clinical Fellow: No Supervisory Statement: N/A Speech Language Pathologist: Noah Galaviz M.A., CCC-[employer]EN BO[employer] BUILDER
[2023-11-04 17:48] LABS: Glucose, Whole Blood 373 mg/dL (60-115)
[2023-11-04] MEDS: Sodium Zirconium Cyclosilicate 10 GM POWD.PACK PO (17:56)
[2023-11-04 19:59] LABS: Glucose, Whole Blood 278 mg/dL (60-115)
--- NOTE | 2023-11-04 22:58 | PM.EVENT ---
Event Note Date of Service: 11/04/23 Event Note: Rapid response was called as patient had a syncopal episode. Patient was on toilet seat and defecating while having a syncopal episode. Initial concern was for neurogenic syncope/vasovagal syncope during defecation. He denied chest discomfort, dizziness or lightheadedness. Tried to obtain orthostatic vital signs but patient had a 2nd syncopal episode while standing. Will resuscitate with albumin. Repeat orthostatics in a.m.. Obtaining troponin and BNP Time Spent With Patient Time: Total time managing care of this patient today ____ minutes.
[2023-11-04] MEDS: Albumin Human 25 % 100 ML IV (23:07)
[2023-11-04 23:08] LABS: Glucose, Whole Blood 109 mg/dL (60-115)
--- NOTE | 2023-11-04 23:37 | PC.NURSE ---
At 2240, this RN was called into the pt's bathroom by the CIRCUIT BOARD ASSEMBLER. Pt found to be slumped forward, being held up by CIRCUIT BOARD ASSEMBLER. Pt non-responsive to verbal or tactile stimuli. Pt noted to be diaphoretic, cool, and pale. COMPUTER ANIMATOR called at 224. Intial vital signs taken at 224 reading BP 140/58, HR 96, RR 20, O2 96% on room air. POC of 109. Pt began waking, responding to verbal questions. Pt stating he feels weak . Pt denied feeling dizzy or lightheaded. MD ordered to obtain standing BP. Pt assisted to standing position with x3 assist. Pt did not tolerate standing for more than 30 seconds; pt began stating he felt weak, and began tipping backwards. Pt lowered back to the toilet. Pt became unresponsive, slumped over, and began drooling. BP read 64/29. Pt transferred to wheelchair and then to bed with x3 assist. Pt placed in reverse trendelenberg. Vital signs at this time read BP 185/58, HR 98, RR 20, O2 96% on room air. Pt began waking, responding to questions. Pt again stated he felt weak. New orders for IV albumin and BMP labs placed. MD advised to hold scheduled doses of IV hydralazine, and to remain on bedrest for remainder of shift. Pt resting in bed at this time with family at bedside. Events of rapid response and plan of care passed on to oncoming RN.
[2023-11-04 23:45] LABS: Calcium 8.7 mg/dL (8.4-10.2); Chloride 113 mmol/L (96-108); Potassium 4.1 mmol/L (3.3-5.1); Sodium 146 mmol/L (135-145)
[2023-11-05] VITALS (7 sets, daily range): BP systolic 135–187; BP diastolic 63–78; PULSE 79–103; RESP 18–24; TEMP 36.3–37; O2SAT 95–99; BMI 34.8
[2023-11-05] MEDS: Albumin Human 25 % 100 ML IV (00:23)
[2023-11-05 00:36] LABS: Troponin-I High Sensitivity 207.6 ng/L (<3.5-35.0)
--- NOTE | 2023-11-05 01:19 | PM.EVENT ---
Event Note Date of Service: 11/05/23 Event Note: Noted elevated troponin. Ordering therapeutic Lovenox x1. Trend troponin and consult Cardiology. Time Spent With Patient Time: Total time managing care of this patient today ____ minutes.
[2023-11-05] MEDS: Enoxaparin Sodium 100 MG/ML SYRINGE SUBCUT (01:43)
[2023-11-05 01:53] LABS: INTERNATIONAL NORM RATIO 0.9 (0.9-1.1); Prothrombin Time 11.5 SEC (11.1-13.3)
--- NOTE | 2023-11-05 03:48 | PC.NURSE ---
Addendum entered by Tiesha Lovelace RN 11/05/23 03:54: labs drawn at 2320 still pending except critical Troponin, aware of troponin. Original Note: albumin infused, BP stable, no further hypotension. 173/77 at 0345. Patient sitting on bedside to urinate urinal. Patient upset to be on bedrest. reports no dizziness. visitor at bedside for the night. PO lopressor and IV hydralazine held per .
[2023-11-05 08:02] LABS: Glucose, Whole Blood 270 mg/dL (60-115)
--- NOTE | 2023-11-05 08:29 | MHC.CM.PN ---
[facility] PT WILL BE MEDICALLY CLEARED HOME W/NEW [facility] FOR SN/OT/PT AND POSSIBLY SPEECH THERAPY, FAMILY WILL TRANSPORT.
[2023-11-05] MEDS: Insulin Glargine,Hum.rec.anlog 100 UNIT/ML 10 ML VIAL 25 UNIT SUBCUT (09:56)
[2023-11-05] MEDS: Insulin Lispro 100 UNIT/ML 3 ML VIAL SUBCUT ×7 (09:57→22:05)
[2023-11-05 10:20] LABS: Albumin Level 3.4 g/dL (3.5-5.0); Anion Gap 17 (12-20); Blood Urea Nitrogen 77 mg/dL (9-16); Calcium 8.6 mg/dL (8.4-10.2); Carbon Dioxide 20 mmol/L (22-29); Chloride 111 mmol/L (96-108); Creatinine Clr Calc Pharmacy 17.6; Estimated Glomerular Filt Rate 11; Glucose Random 314 mg/dL (60-115); Magnesium 2.3 mg/dL (1.6-2.6); Phosphorus 3.9 mg/dL (2.7-4.5); Sodium 143 mmol/L (135-145)
--- NOTE | 2023-11-05 10:20 | MHC.CM.PN ---
EM[facility] REVIEWED, PER HOSPITALIST PT W/2SYNCOPAL EPISODES OVER NOC AND DIFFICULTY SWALLOWING AGAIN, CARDIO AND SPEECH PENDING, [facility] UPDATED AND CM WILL CONT TO FOLLOW DC NEEDS.
[2023-11-05 10:25] LABS: Troponin-I High Sensitivity 176.8 ng/L (<3.5-35.0)
--- NOTE | 2023-11-05 11:13 | P.PNIM_ITS ---
Subjective Subjective Date of Service: 11/05/23 Interval History: Seen and evaluated this morning syncopale episode overnight with reported orthostatic hypotension tolerating PO but kept npo for behavioral concerns He wants to go home and threatining to throw a fit if we dont let him go no reported events Physical Exam 2 Vital Signs: Vital Signs: Last Vital Signs Temp 98.1 F 11/05/23 08:00 Pulse 103 H 11/05/23 09:01 Resp 20 11/05/23 08:00 BP 135/63 11/05/23 09:01 Pulse Ox 98 11/05/23 08:00 O2 Del Method Room Air 11/05/23 08:00 O2 Flow Rate 2 10/30/23 23:35 Oxygen Flow Rate 2 10/27/23 08:00 BMI result Body Mass Index 34.8 Const: Other: Constitutional : Awake, interactive, not in distress Neck : Normal inspection, Supple Cardiovascular : RRR, no JVP, +1 extremity edema Respiratory : good bilateral air entry, no crackles, wheezes or rhonchi Gastrointestinal: soft, lax, Normal bowel sounds, Non tender Skin : Warm, Dry Neurological : Alert & oriented x3, right homonymous hemianopsia. pronation in LUE w 4+ power, right side normal strength Objective Data Active Medications Acetaminophen (Acetaminophen 325 Mg Tablet) 650 mg PO Q6H PRN PRN Reason: pain or fever Last Admin: 10/27/23 12:43 Dose: 650 mg Documented By: NAKIT Albuterol/Ipratropium (Albuterol/Iprat 2.5/0.5mg 3 Ml Ampul.Neb) 3 ml INHALE ONCE PRN PRN Reason: wheezing Amlodipine Besylate (Amlodipine Besylate 5 Mg Tablet) 5 mg PO DAILY [facility]; Protocol Last Admin: 11/05/23 09:59 Dose: Not Given Documented By: DANIELLE Non-Admin Reason: Physician Held Med Aspirin (Aspirin Enteric Coated 81 Mg Tablet.) 81 mg PO DAILY [facility] Last Admin: 11/05/23 08:21 Dose: Not Given Documented By: DANIELLE Non-Admin Reason: NPO Atorvastatin Calcium (Atorvastatin Calcium 80 Mg Tablet) 80 mg PO BEDTIME [facility] Last Admin: 11/04/23 20:21 Dose: Not Given Documented By: FREDERICK Non-Admin Reason: No PO meds per SOUND PERSON Clopidogrel Bisulfate (Clopidogrel Bisulfate 75 Mg Tablet) 75 mg PO DAILY [facility] Last Admin: 11/05/23 08:21 Dose: Not Given Documented By: DANIELLE Non-Admin Reason: NPO Diazepam (Diazepam 10 Mg/2 Ml Cartridge) 5 mg IVPUSH Q6H PRN PRN Reason: Anxiety Diphenhydramine HCl (Diphenhydramine Hcl 50 Mg/Ml Vial) 25 mg IVPUSH BEDTIME PRN PRN Reason: Insomnia Last Admin: 10/31/23 21:50 Dose: 25 mg Documented By: CLAYTON Haloperidol Lactate (Haloperidol Lactate 5 Mg/Ml Vial) 5 mg IM ONCE PRN PRN Reason: anxiety/restlessness Hydralazine HCl (Hydralazine Hcl 20 Mg/Ml Vial) 10 mg IVPUSH Q6H PRN; Protocol PRN Reason: sbp greater than 180 Last Admin: 11/03/23 08:49 Dose: 10 mg Documented By: HORTENSIA Hydralazine HCl (Hydralazine Hcl 20 Mg/Ml Vial) 5 mg IVPUSH Q6H [facility]; Protocol Last Admin: 11/05/23 09:58 Dose: Not Given Documented By: DANIELLE Non-Admin Reason: Physician Held Med Dextrose (D10) 250 mls @ 750 mls/hr IV Q30M PRN PRN Reason: BG <70 Last Infusion: 10/27/23 22:32 Dose: Infused Documented By: ABIMBOLA Dextrose (D10) 250 mls @ 750 mls/hr IV Q15M PRN PRN Reason: per Hypoglycemia Standing Ord. Dextrose (D10) 250 mls @ 750 mls/hr IV Q15M PRN PRN Reason: per Hypoglycemia Standing Ord. Insulin Glargine (Insulin Glargine,Hum.Rec.Anlog 100 Unit/Ml 10 Ml Vial) 25 unit SUBCUT DAILY [facility] Last Admin: 11/05/23 09:56 Dose: 25 unit Documented By: DANIELLE Insulin Human Lispro (Insulin Lispro 100 Unit/Ml 3 Ml Vial) 0 unit SUBCUT QIDACHS [facility]; Protocol Last Admin: 11/05/23 09:58 Dose: 6 unit Documented By: DANIELLE Insulin Human Lispro (Insulin Lispro 100 Unit/Ml 3 Ml Vial) 5 unit SUBCUT QIDACHS [facility] Last Admin: 11/05/23 09:57 Dose: 5 unit Documented By: DANIELLE Lidocaine (Lidocaine 4 % Patch Adh..Patch) 1 patch TRANSDERMA DAILY [facility]; Protocol Last Admin: 11/05/23 09:59 Dose: Not Given Documented By: DANIELLE Non-Admin Reason: Patient Refused Ondansetron HCl (Ondansetron Hcl 4 Mg/2 Ml Vial) 4 mg IVPUSH Q6H PRN PRN Reason: Nausea Last Admin: 10/25/23 17:10 Dose: 4 mg Documented By: MARY JANE Labs 11/01/23 07:56 11/05/23 09:12 Labs: Laboratory Results - last 24 hr 11/04/23 11/04/23 11/04/23 14:15 17:44 19:51 PT INR Anion Gap 21 H Estim Creat Clear Calc 17.3 Estimated GFR 10 POC Glucose 373 H* 278 H Random Glucose 449 H* Calcium 8.3 L Phosphorus Magnesium Troponin I High Sens Albumin 11/04/23 11/04/23 11/05/23 22:45 23:21 01:32 PT 11.5 INR 0.9 Anion Gap Estim Creat Clear Calc Estimated GFR POC Glucose 109 Random Glucose Calcium Phosphorus Magnesium Troponin I High Sens 207.6 H* D Albumin 11/05/23 11/05/23 07:54 09:12 PT INR Anion Gap 17 Estim Creat Clear Calc 17.6 Estimated GFR 11 POC Glucose 270 H Random Glucose 314 H Calcium 8.6 Phosphorus 3.9 Magnesium 2.3 Troponin I High Sens 176.8 H* Albumin 3.4 L Assessment and Plan (1) Acute hypernatremia: Status: Acute (2) 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 DKA resolved, hyperkalemia resolved, downgraded to medical floor 10/25/23. course copmlicated by acute hypoxia and fevers (not meeting SIRS) Right sided weakness, swallowing problem 2/2 Acute embolic stroke Noted on CT scan, confirmed by MRI to have multiple locations of acute infarcts Echo w bubble not showing VSD\ASD Neurology input appreciated, multiple acute strokes primarily in the left posterior cerebral territory and one in the right hemisphere as well suggesting embolic etiology start ASA and Plavix (patient unable to tolerate PO, on [place] Aspirin) DC PPN for now SOUND PERSON continue to follow, tolerating NDD3 PT\OT following hold off G-tube placement now as he is tolerating diet psych consult for signs of depression and anxiety related to new stroke diagnosis Syncopal episode 2/2 orthostatic vitals reported overnight for 2 times while standing for commode BP low, orthostatic vitals positive BP runs high most of times, will cut down Hydralazine 5 mg Elevated Trop Denies chest pain trending down EKG with no ST\T-wave changes to suggest ACS on tele pending Cardiology consult NATALIA on CKD 5 complicated by acute metabolic acidosis,hyperkalemia, and anemia Had a session of hemodialysis, Nephrology following, nonoliguric Randolph removed , no retention Cr at 5.6 , BUN 70s Making fair amount of urine Continue flomax when taking po To remove CVC once we secure peripheral IV Nephro input appreciated, to follow up as outpatient in 1 week follow BMP Diarrhea check C.Diff , stool WBCs Acute Hyperkalemia resolved repeat BMP Nephro following for need of urgent dialysis Acute hypernatremia resolved Follow BMP Hyperglycemia 2/2 Diabetes with DKA decrease Lantus to 25 SSI Basal bolus insulin, monitor Fever without sepsis and acute hypoxic respiratory failure 2/2 aspiration pneumonia Finished 10 days of IV Zosyn cultures negative DVT prophylaxis with heparin sq Full code reason for continued hospitalization: Not taking p.o., natalia, Acute stroke with dysphagia pending tolerance of diet\G-tube placement Quality Stroke Does the patient have a stroke diagnosis?: No VTE Prior VTE?: No VTE Risk Level:: Medical - moderate - high VTE Device Contraindication: N/A - Device Ordered VTE Drug Contraindication: N/A - Med Ordered
[2023-11-05 11:28] LABS: Glucose, Whole Blood 266 mg/dL (60-115)
--- NOTE | 2023-11-05 13:05 | MHC.SPEECHCO ---
Repeat MBSS on 11/03 provided recommendations for Chopped/Advanced Solids (NDD3) and [place]-Thick Liquids with the goal of establishing a Free Water Protocol under CARDIAC MONITOR supervision. Since being placed on a diet Pt has been refusing his tray with complaints that the food is unpalatable. Per RN, he also refused his Potassium this morning because of the taste and refused the rest. CARDIAC MONITOR arrived to see him with his Lunch tray however he quickly turned it away and order a replacement. Per his Sister, he has always been a picky eater and, if he doesn't like it, he won't eat it . CARDIAC MONITOR requested CIRCULAR KNITTER HELPER/RN contact via [facility] when replacement tray arrives. Due to limited staffing today, he may not be able to be seen by CARDIAC MONITOR until tomorrow morning.
--- NOTE | 2023-11-05 13:11 | P.PNNP_ITS ---
Subjective Subjective Date of Service: 11/05/23 Interval history: Seen and evaluated this morning ; Had syncopal episode overnight with reported orthostatic hypotension Physical Exam 2 Vital Signs: Vital Signs: Last Vital Signs Temp 98.6 F 11/05/23 12:00 Pulse 85 11/05/23 12:00 Resp 20 11/05/23 12:00 BP 144/64 H 11/05/23 12:00 Pulse Ox 98 11/05/23 12:00 O2 Del Method Room Air 11/05/23 12:00 O2 Flow Rate 2 10/30/23 23:35 Oxygen Flow Rate 2 10/27/23 08:00 BMI result Body Mass Index 34.8 Const: General: no acute distress Orientation/consciousness: patient oriented x3 Neck: Neck: Yes supple Resp: Auscultation: diminished lung sounds Cardio: Rate: regular rate GI: Palpation (GI): Soft to palpation Neuro: General: patient oriented x3 Objective Data Labs 11/01/23 07:56 11/05/23 09:12 Labs: Laboratory Results - last 24 hr 11/04/23 11/04/23 11/04/23 14:15 17:44 19:51 PT INR Sodium 138 Potassium 5.5 H Chloride 107 Carbon Dioxide 16 L Anion Gap 21 H BUN 72 H Creatinine 5.77 H* Estim Creat Clear Calc 17.3 Estimated GFR 10 POC Glucose 373 H* 278 H Random Glucose 449 H* Calcium 8.3 L Phosphorus Magnesium Troponin I High Sens Albumin 11/04/23 11/04/23 11/05/23 22:45 23:21 01:32 PT 11.5 INR 0.9 Sodium Potassium Chloride Carbon Dioxide Anion Gap BUN Creatinine Estim Creat Clear Calc Estimated GFR POC Glucose 109 Random Glucose Calcium Phosphorus Magnesium Troponin I High Sens 207.6 H* D Albumin 11/05/23 11/05/23 11/05/23 07:54 09:12 11:02 PT INR Sodium 143 Potassium 5.0 D Chloride 111 H Carbon Dioxide 20 L Anion Gap 17 BUN 77 H Creatinine 5.67 H* Estim Creat Clear Calc 17.6 Estimated GFR 11 POC Glucose 270 H 266 H Random Glucose 314 H Calcium 8.6 Phosphorus 3.9 Magnesium 2.3 Troponin I High Sens 176.8 H* Albumin 3.4 L Microbiology Microbiology Results: Microbiology 10/24/23 19:12 Blood - Venous Blood Culture - Final No growth after 5 days. 10/24/23 18:51 Blood - Venous Blood Culture - Final No growth after 5 days. Procedures Date of Service Date of Service: 11/05/23 Assessment & Plan Assessment and plan (1) Acute on chronic kidney failure: Status: Acute Plan 53-year-old man with stage IV CKD admitted with severe hyperkalemia due to diabetic ketoacidosis. He underwent emergency dialysis ; nonoliguric. Renal functions improved & stable; no further dialysis for now Will need regular Procrit as outpatient; Continue with rest of his current management Progress Note: Quality Stroke Does the patient have a stroke diagnosis?: No
--- NOTE | 2023-11-05 14:13 | MHC.CM.PN ---
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 OF NOTE STACY'S ADDRESS HAS BEEN PROVIDED TO [address] [place] [address] [place], ADDRESS PROVIDED TO [facility].
--- NOTE | 2023-11-05 14:25 | MHC.SL.DTX ---
Dysphagia Diet modifications: Last documented Solid diet consistencies: Chopped/Advanced (NDD3) Last documented Liquid consistency: Wanda Thick Last documented Medication Administration:NPO Changes made to current diet?: No: No changes at this time Liquid Consistency and Strategies: Liquid Intake Recommendation: NPO Compensatory Strategies for Safe Swallow: Small Sips Compensatory Strategies for Safe Swallow(b): Sitting Upright (90 deg) Solid Food Consistency: Dietary Recommendations: Chopped/Advanced (NDD3) Additional Modifications to Solids: CONTINUE CHOPPED/ADVANCED SOLIDS and NECTAR-THICK LIQUIDS. Continue ASPIRATION PRECAUTIONS. Assist with TRAY SET-UP for meals. Family provided IDDSI Level 6 hand out and encouraged to bring compliant food from home given food sensitivities. Oral Medication Intake: Whole with Puree Strategies and Precautions to be Taken for Safe Swallow: Sitting Upright (90 deg) Supervision While Eating and/Drinking: Total Assistance (1:1) Foods to Avoid: Swallowing Recommended Treatments: Compens. Strategy Educat. Level of Impact on: Daily activities: Severe Interpersonal interactions: Education: Employment: Community: Prognosis for Improvement: Guarded Recommendation for Speech: Inpatient Speech Therapy Speech Therapy through [facility] Comment: The following exercises have been used in therapy and improvement(s) in swallowing function was/were seen today: Effortful Swallow eliminated Aspiration Clarissa Maneuver eliminated Aspiration PLAN: Intake Recommendations: Route: PO Diet Grade: IDDSI Levels: 6-Soft & Bite-Sized Liquid Consistencies: IDDSI Levels: 2-Mildly Thick Post-Study Functional Oral Intake Scale (FOIS): 5- Total oral intake of multiple consistencies requiring special preparation xxx Therapy Recommendations: Therapy will be continued The following compensatory strategies and/or therapeutic exercises will be part of the upcoming therapy/management plan: Wanda-thick Liquid Bolus Volume Change Additional Swallow(s) per Bolus Effortful Swallow Prognosis for Improvement: The prognosis for the patient to meet nutritional needs by mouth is good based on degree of impairment, stimulability for treatment, level of motivation, support system. Patient's Personal Goals: Establish diet so he can be discharged. Medical Scheduler Goals: ? The patient will tolerate the least restrictive diet with a safe/efficient swallow to maintain adequate nutrition and hydration. ? The patient will demonstrate improved swallowing function via repeat clinical evaluation, videoendoscopy/videofluoroscopy and/or patient self-rating scores. ? The patient and/or family will participate in further education for swallowing goals. Short Term Goals: ? Diet - The patient will tolerate a IDDSI Level 6 diet with nectar thick liquids without signs or symptoms of penetration/aspiration 90% of the time. - The patient will participate in therapeutic PO trials with the FOREIGN EXCHANGE STUDENT COORDINATOR. ? Guidelines - The patient will comply with/recall the following guidelines/strategies 90% of the time with moderate cuing: Wanda-thick Liquid, Bolus Volume Change, Effortful Swallow (used during PO intake), 90. ? Independent Home Exercise ? Structured Therapy - The patient will demonstrate 90% accuracy and require moderate cuing in structured swallowing therapy with the FOREIGN EXCHANGE STUDENT COORDINATOR using the following exercises/therapy approaches and therapy assisted devices: Travis Maneuver, Shaker Head Lifts, Clarissa Maneuver, . ? Education - The patient, caregiver will verbalize/demonstrate understanding of the results of this evaluation, the above recommendations, and the swallowing guidelines. Frequency/Duration: Daily M-F Date Range for Service Req: Timeline to reassess: PRN Additional Comments: Patient had been NPO since his MBSS showed aspiration on Thin, Wanda and Puree Solids. He initially declined PEG tube, but is now supportive. He is planned for PEG placement on Thursday 11/02, however repeat MBSS recommended prior to PEG surgery. Repeat MBSS on 11/03 yielded recommendations for Chopped/Advanced Solids (NDD3) with Wanda-Thick Liquids and the potential for a Free Water Protocol under the supervision of an FOREIGN EXCHANGE STUDENT COORDINATOR. Treatment: Since his diet order was upgrade he has been rejecting all meals reporting aversion to their taste or texture. Per his Sister, he has a history of picky eating stating, if he doesn't like it, he won't eat it . After an adjusted Lunch tray was brought to him, he was still complaintive of the food stating it was too dry. Regardless, with encouragement he had multiple bites with adequate oral preparation and no overt s/s of aspiration. He tolerated multiple intermittent sips of a nectar-thickened liquid with no overt s/s of aspiration. FOREIGN EXCHANGE STUDENT COORDINATOR continues to recommend Chopped/Advanced Solids (NDD3) with Wanda-Thick Liquids. Please see recent MBSS for further clarification and recommendations. Assessment: High Lighter Clinican/Clinical Fellow: No Supervisory Statement: I have reviewed and agree with the student/clinical fellow's documentation: N/A Speech Language Pathologist: Noah Galaviz M.A., [facility]-FOREIGN EXCHANGE STUDENT COORDINATOR
[2023-11-05] MEDS: 0.9 % Sodium Chloride 1,000 ML 75 ML IVCONT (14:38)
--- NOTE | 2023-11-05 14:52 | PM.CNCAR ---
History of Present Illness History of Present Illness Date of Service: 11/05/23 Requesting physician: Claudia Oconnor Chief complaint: DKA, NATALIA, orthostasis Narrative: 53-year-old gentleman with multiple comorbidities presenting with diabetic ketoacidosis and acute kidney injury with creatinine of 5.67 and BUN 77. He has mildly elevated troponin levels. No chest pain or shortness of breath. The patient is quite agitated and wants to just go home. All interview was about can he leave or not. He answered only few questions. He has orthostasis since he got admitted to hospital with acute kidney injury which was felt to be due to dehydration. Blood pressure is currently stable. He will be getting some IV fluids. Also had acute embolic stroke during this admission. No known AFib in the past. No AFib noted on telemetry. [facility], LATER [facility] Past Medical History Medical History (Updated 11/05/23 @ 14:58 by Rene Fisher MD) Metabolic acidosis Right foot ulcer Anxiety History of foot ulcer Obesity (BMI 30-39.9) Depression Rotator cuff arthropathy of left shoulder Vitamin D deficiency Allergic rhinitis Anemia Pure hypercholesterolemia Benign essential hypertension Diabetic polyneuropathy Type 2 diabetes mellitus with diabetic chronic kidney disease Erectile dysfunction Type 2 diabetes mellitus with hyperglycemia, with long-term current use of insulin Type 2 diabetes mellitus with diabetic polyneuropathy Type 2 diabetes mellitus with chronic kidney disease 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 LDL goal <70 Family History Family History Father Lung cancer Mother Hypertension Coronary artery disease CVD (cardiovascular disease) TIA (transient ischemic attack) Sister Diabetes Maternal Uncle Diabetes Other Mental health problem Surgical History Surgical History History of nasal surgery Social History Social History Household Members: Unknown / Unable to assess Housing: Unknown / Unable to assess Do you presently have visiting nurse or other home services: No Alcohol intake: current Alcohol intake frequency: holidays/special occasions only Comment: sister in room Patient Tobacco Use Status: Never used Tobacco Smoked in Last 30 Days: No e-Cigarette/Vaping Use: Never Used Second Hand Smoke Exposure: Yes Use of substances other than those prescribed or required for medical reasons: No Currently Displaying Signs/Symptoms of Drug Intoxication Withdrawal: No Advance Directives: No Advance Directives Information Provided: No Do you have a plan to hurt others: No Plan Recently lost weight without trying: No How much weight loss: Unsure Eating poorly because of decreased appetite: No Nutrition screen score: 2 Nutrition Risks: Diabetes new onset/Uncontrolled Poor oral hygiene: No service: No Current occupational status: unemployed Cognitive needs: No Hearing needs: No Vision needs: No Meds Allergies Allergy/AdvReac Type Severity Reaction Status Date / Time No Known Allergies Allergy Verified 10/24/23 18:33 Active Medications: Current Medications Acetaminophen (Acetaminophen 325 Mg Tablet) 650 mg PO Q6H PRN PRN Reason: pain or fever Last Admin: 10/27/23 12:43 Dose: 650 mg Albuterol/Ipratropium (Albuterol/Iprat 2.5/0.5mg 3 Ml Ampul.Neb) 3 ml INHALE ONCE PRN PRN Reason: wheezing Amlodipine Besylate (Amlodipine Besylate 5 Mg Tablet) 5 mg PO DAILY [facility]; Protocol Last Admin: 11/05/23 09:59 Dose: Not Given Aspirin (Aspirin Enteric Coated 81 Mg Tablet.Dr) 81 mg PO DAILY [facility] Last Admin: 11/05/23 08:21 Dose: Not Given Atorvastatin Calcium (Atorvastatin Calcium 80 Mg Tablet) 80 mg PO BEDTIME [facility] Last Admin: 11/04/23 20:21 Dose: Not Given Clopidogrel Bisulfate (Clopidogrel Bisulfate 75 Mg Tablet) 75 mg PO DAILY [facility] Last Admin: 11/05/23 08:21 Dose: Not Given Diazepam (Diazepam 10 Mg/2 Ml Cartridge) 5 mg IVPUSH Q6H PRN PRN Reason: Anxiety Diphenhydramine HCl (Diphenhydramine Hcl 50 Mg/Ml Vial) 25 mg IVPUSH BEDTIME PRN PRN Reason: Insomnia Last Admin: 10/31/23 21:50 Dose: 25 mg Haloperidol Lactate (Haloperidol Lactate 5 Mg/Ml Vial) 5 mg IM ONCE PRN PRN Reason: anxiety/restlessness Hydralazine HCl (Hydralazine Hcl 20 Mg/Ml Vial) 5 mg IVPUSH Q6H [facility]; Protocol Last Admin: 11/05/23 13:40 Dose: Not Given Dextrose (D10) 250 mls @ 750 mls/hr IV Q30M PRN PRN Reason: BG <70 Last Infusion: 10/27/23 22:32 Dose: Infused Dextrose (D10) 250 mls @ 750 mls/hr IV Q15M PRN PRN Reason: per Hypoglycemia Standing Ord. Dextrose (D10) 250 mls @ 750 mls/hr IV Q15M PRN PRN Reason: per Hypoglycemia Standing Ord. Sodium Chloride (Ns) 1,000 mls @ 75 mls/hr IVCONT .[id number] [facility] Last Admin: 11/05/23 14:38 Dose: 75 mls/hr Insulin Glargine (Insulin Glargine,Hum.Rec.Anlog 100 Unit/Ml 10 Ml Vial) 25 unit SUBCUT DAILY [facility] Last Admin: 11/05/23 09:56 Dose: 25 unit Insulin Human Lispro (Insulin Lispro 100 Unit/Ml 3 Ml Vial) 0 unit SUBCUT QIDACHS [facility]; Protocol Last Admin: 11/05/23 13:17 Dose: 6 unit Insulin Human Lispro (Insulin Lispro 100 Unit/Ml 3 Ml Vial) 5 unit SUBCUT QIDACHS [facility] Last Admin: 11/05/23 13:18 Dose: 5 unit Lidocaine (Lidocaine 4 % Patch Adh..Patch) 1 patch TRANSDERMA DAILY [facility]; Protocol Last Admin: 11/05/23 09:59 Dose: Not Given Ondansetron HCl (Ondansetron Hcl 4 Mg/2 Ml Vial) 4 mg IVPUSH Q6H PRN PRN Reason: Nausea Last Admin: 10/25/23 17:10 Dose: 4 mg Home Medications ?Medication ?Instructions ?Recorded ?Confirmed ?Last Taken ?Type hydralazine 50 mg tablet 50 mg PO TID 10/24/23 10/24/23 Unknown History oxycodone 5 mg tablet 5 mg PO TID PRN severe pain 10/24/23 Unknown History Physical Exam Vital Signs: Vital Signs: Last Vital Signs Temp 98.6 F 11/05/23 12:00 Pulse 85 11/05/23 12:00 Resp 20 11/05/23 12:00 BP 144/64 H 11/05/23 12:00 Pulse Ox 98 11/05/23 12:00 O2 Del Method Room Air 11/05/23 12:00 O2 Flow Rate 2 10/30/23 23:35 Oxygen Flow Rate 2 10/27/23 08:00 BMI result Body Mass Index 34.8 GENERAL APPEARANCE: Upset and wants to go home. NECK: no carotid bruit, no jugular venous distention. Right IJ - TLC. SKIN: no suspicious lesions, warm and dry. HEART: no murmurs, regular rate and rhythm. LUNGS: clear to auscultation bilaterally. ABDOMEN: soft, nontender. EXTREMITIES: no edema. PERIPHERAL PULSES: equal. NEUROLOGIC: No gross deficits, AAO X 3 Objective Labs and Meds 11/01/23 07:56 11/05/23 09:12 Lab results: Laboratory Results - last 24 hr 11/04/23 11/04/23 11/04/23 14:15 17:44 19:51 PT INR Sodium 138 Potassium 5.5 H Chloride 107 Carbon Dioxide 16 L Anion Gap 21 H BUN 72 H Creatinine 5.77 H* Estim Creat Clear Calc 17.3 Estimated GFR 10 POC Glucose 373 H* 278 H Random Glucose 449 H* Calcium 8.3 L Phosphorus Magnesium Troponin I High Sens Albumin 11/04/23 11/04/23 11/05/23 22:45 23:21 01:32 PT 11.5 INR 0.9 Sodium Potassium Chloride Carbon Dioxide Anion Gap BUN Creatinine Estim Creat Clear Calc Estimated GFR POC Glucose 109 Random Glucose Calcium Phosphorus Magnesium Troponin I High Sens 207.6 H* D Albumin 11/05/23 11/05/23 11/05/23 07:54 09:12 11:02 PT INR Sodium 143 Potassium 5.0 D Chloride 111 H Carbon Dioxide 20 L Anion Gap 17 BUN 77 H Creatinine 5.67 H* Estim Creat Clear Calc 17.6 Estimated GFR 11 POC Glucose 270 H 266 H Random Glucose 314 H Calcium 8.6 Phosphorus 3.9 Magnesium 2.3 Troponin I High Sens 176.8 H* Albumin 3.4 L Assessment and Plan (1) Orthostatic hypotension: Status: Acute Plan 53-year-old gentleman with multiple complex medical issues who was admitted with DKA and acute kidney injury. He is orthostatic due to hypovolemia. Agree with gentle hydration and reassessing orthostatic vital signs. Mild troponin elevation in the setting of kidney injury. No anginal symptoms. Limited encounter because patient was adamant to leave and kept asking can he go home. Thank you for allowing me to participate in the care of your patient. Please feel free to contact me if you have any questions. Procedures Date of Service Date of Service: 11/05/23
--- NOTE | 2023-11-05 15:15 | PM.DS ---
DS: Providers Provider Date of Service: 11/05/23 Date of admission: 10/24/23 19:44 Primary care physician: Michael Garcia MD Consults: 10/25/23 02:38 Consult to Nephrology Routine Consulting Provider: [facility] Reason for consultation: NATALIA, DKA Has provider been notified: Yes 10/28/23 17:44 Consult to Neurology Stat Consulting Provider: [facility] Reason for consultation: acute cva 10/30/23 14:28 Consult to General Surgery Routine Consulting Provider: [facility] Reason for consultation: Need for G-tube placement, massive Stroke w dysphagia 10/31/23 09:36 Consult to Wound Care Routine Reason for consultation: skin tear right buttock 11/05/23 01:18 Consult to Cardiology Routine Consulting Provider: [facility] [place] [facility] Reason for consultation: elevated troponin Has provider been notified: Yes 11/05/23 11:18 Consult to Psychiatry Routine Consulting Provider: [facility] Reason for consultation: Depression, anxiety post acute stroke for eval and mngmt DS: Diagnosis Discharge Diagnosis (1) Orthostatic hypotension: Status: Acute DS: Summary Hospital Course Hospital Course: from initial hpi: 53-year-old male with a past medical history of hypertension, diabetes mellitus, neuropathy, chronic kidney disease? (baseline creatinine 5),? hyperlipidemia, anemia, anxiety, depression, who presented to the emergency department with nausea and vomiting.? Patient reported? feeling weak, tired, nausea vomiting and diarrhea starting yesterday.? Reported? due to being sick did not take his insulin,? and his sugars have been high.? ?In the emergency department? patient was hypothermic,? tachypneic,? blood pressure stable. ? p laboratory data was significant for WBC 14.8, serum sodium 126, potassium 8.3, serum bicarb <5, BUN 86, creatinine 7.21, serum glucose 1228,? calcium 8.2, troponin 88.5, BNP 830, ? beta hydroxybutyrate 8.35 and lactic acid 5.8 Venous blood gas:? 6.85/13/175/2 ED COURSE:? Patient received 2 L bolus, 10 units IV push of insulin, calcium gluconate 2 g,? amp of bicarb,? albuterol 5 mg and started on insulin drip.? Patient will be admitted for? hemodynamically monitoring of diabetes ketoacidosis hospital course: Patient had a prolonged hospitalization, for full summary please see medical record. Patient was initially admitted to the intensive care unit for diabetic ketoacidosis complicated by acute kidney injury on CKD 5 with hyperkalemia requiring emergent hemodialysis. Was treated with insulin drip and hemodialysis DKA resolved, hyperkalemia resolved he was then downgraded to medical floor on 10/25/2023. Course was then complicated by acute hypoxia and fevers without sepsis. Was treated with course of IV Zosyn. Then incidentally noted to have dysphagia. Workup included CT of the neck to rule out mechanical obstruction which revealed acute to subacute embolic stroke. MRI then confirmed multiple locations of acute infarcts. Echo with bubble study did not show any septal defect. Was seen by Neurology who recommended dual antiplatelet and statin. For patient's acute kidney injury on CKD 5 he received session of hemodialysis and then creatinine stabilized. He did not require further hemodialysis. He will continue with close follow-up with Nephrology. Course was further complicated by episode of syncope likely due to orthostatic hypotension. Time Attestation Discharge Coordination Time (in mins): 45 Quality: Safe Use of Opioids Does Pt have an Active Cancer Diagnosis on the Problem List?: No Quality: Stroke Does the patient have a stroke diagnosis?: Yes Reason for No Anti-thrombotic at DC: N/A - Med Ordered Reason for No Anticoagulant at DC: N/A - Med Ordered Reason Not Initiating IV-Tpa: Drug treatment not indicated Reason for No Anti-thrombotic by Day Two: N/A - Med Ordered Reason for No Statin at DC: N/A - Med Ordered Physical Exam Vital Signs: Vital Signs: Last Vital Signs Temp 98.6 F 11/05/23 12:00 Pulse 85 11/05/23 12:00 Resp 20 11/05/23 12:00 BP 144/64 H 11/05/23 12:00 Pulse Ox 98 11/05/23 12:00 O2 Del Method Room Air 11/05/23 12:00 O2 Flow Rate 2 10/30/23 23:35 Oxygen Flow Rate 2 10/27/23 08:00 BMI result Body Mass Index 34.8 GENERAL APPEARANCE: Upset and wants to go home. NECK: no carotid bruit, no jugular venous distention. Right IJ - TLC. SKIN: no suspicious lesions, warm and dry. HEART: no murmurs, regular rate and rhythm. LUNGS: clear to auscultation bilaterally. ABDOMEN: soft, nontender. EXTREMITIES: no edema. PERIPHERAL PULSES: equal. NEUROLOGIC: No gross deficits, AAO X 3 DS: Data Data Completed and Pending Labs on day of discharge: Laboratory Results - last 24 hr 11/04/23 11/04/23 11/04/23 17:44 19:51 22:45 PT INR Sodium Potassium Chloride Carbon Dioxide Anion Gap BUN Creatinine Estim Creat Clear Calc Estimated GFR POC Glucose 373 H* 278 H 109 Random Glucose Calcium Phosphorus Magnesium Troponin I High Sens Albumin 11/04/23 11/05/23 11/05/23 23:21 01:32 07:54 PT 11.5 INR 0.9 Sodium Potassium Chloride Carbon Dioxide Anion Gap BUN Creatinine Estim Creat Clear Calc Estimated GFR POC Glucose 270 H Random Glucose Calcium Phosphorus Magnesium Troponin I High Sens 207.6 H* D Albumin 11/05/23 11/05/23 09:12 11:02 PT INR Sodium 143 Potassium 5.0 D Chloride 111 H Carbon Dioxide 20 L Anion Gap 17 BUN 77 H Creatinine 5.67 H* Estim Creat Clear Calc 17.6 Estimated GFR 11 POC Glucose 266 H Random Glucose 314 H Calcium 8.6 Phosphorus 3.9 Magnesium 2.3 Troponin I High Sens 176.8 H* Albumin 3.4 L Discharge Plan Discharge Anticipated Discharge Date/Time: 11/05/23 15:10 Patient Disposition: Left Against Medical Advice Discharge Diagnosis: dka, stroke, natalia on ckd v Referrals: [facility] [Outside] - 1 Day (NURSING HOME, HOME OT/PT) Michael Garcia MD [Primary Care Provider] - 1 Week Stone Ulloa MD [Physician] - 1 Week Discharge Medications: New clopidogrel 75 mg Tablet 75 mg PO DAILY Qty: 90 0RF aspirin 81 mg Tablet,Delayed Release (Dr/Ec) 81 mg PO DAILY Qty: 90 0RF Continued (DME) FreeStyle Lida 14 Day Sensor Kit See Rx Instructions .ROUTE .COMPLEX Qty: 2 11RF Dose Instruction: USE DIRECTED EVERY 2 WEEKS Rx Instructions: USE DIRECTED EVERY 2 WEEKS atorvastatin 80 mg tablet 80 mg PO DAILY 90 Days Qty: 90 1RF insulin lispro [Humalog KwikPen Insulin] 100 unit/mL insulin pen 8 unit subcut TID 30 Days Qty: 15 3RF Rx Instructions: + 2 units for bg over 200 insulin glargine [Lantus Solostar U-100 Insulin] 100 unit/mL (3 mL) insulin pen 26 unit subcut DAILY Qty: 15 3RF hydralazine 50 mg tablet 50 mg PO TID oxycodone 5 mg tablet 5 mg PO TID PRN (Reason: severe pain) amlodipine 5 mg tablet 5 mg PO DAILY Qty: 30 5RF sodium bicarbonate 650 mg tablet 650 mg PO BID Qty: 60 3RF cholecalciferol (vitamin D3) 25 mcg (1,000 unit) capsule 25 mcg PO DAILY Qty: 90 2RF Discontinued lisinopril 20 mg tablet 40 mg PO DAILY Qty: 180 0RF Discharge Orders: Discharge Order (Routine); Ordered 11/05/23 Ordered By: Sal Barreto Diet: ndd3 solids, nectar liq Activity on Discharge: As tolerated Print Language: Samoan Care Plan Goals: recovery Health Concerns: stroke, dka, dysphagia, natalia on ckd v Plan of Treatment: leaving AMA cannot properly treat, continue antipaltelet, statin, pt, follow up nephro, HATCH BOSS, modified diet Assessment: see above Patient Instructions: Diabetic Ketoacidosis (GEN)
--- NOTE | 2023-11-05 15:37 | MHC.CLN ---
F/U PPN ON HOLD FOR TODAY PER MD PT'S DIET ADVANCED TO 1800DM CHOPPED WITH NT LIQ PER RFID STRATEGIST RECOMMEND CHANGING DIET TO 2000DM TO MEET ESTIMATED NUTRITION NEEDS AND PROVIDE ADDITIONAL VARIETY PT HAS BEEN REFUSING MEAL TRAYS WITH VERY LITTLE INTAKE R/T BEHAVIORAL ISSUES FAMILY MEMBER REPORTS PT IS A [employer] FOOD PREFERENCES RECORDED AND SENT TO [facility] [employer] PO INTAKE AND IF PO INTAKE <25% X [address] TO RE-START PPN
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
--- NOTE | 2023-11-05 18:12 | P.CDIM_ITS ---
PROVIDER RESPONSE TEXT: To clarify, the appropriate diagnosis supported by the clinical indicators: Mild intermittent: merylht QUERY TEXT: PHYSICIAN'S DOCUMENTATION REQUEST Date of Query: 11/04/2023 08:45 AM EDT Patient Name: Howard Chino Admit Date: 10/24/2023 Dear Claudia Oconnor, A review of the medical record indicates additional documentation may be needed. Please review below and update the documentation accordingly. Past medical history of Asthma. Ed: Kussmaul respirations, rapid and shallow Albuterol 5 mg RR Based on the above, please clarify in the Progress Notes further specificity regarding the type and a cuity of the asthma: Mild intermittent Please specify if with or without acute exacerbation or status asthmaticus Mild persistent Please specify if with or without acute exacerbation or status asthmaticus Moderate persistent Please specify if with or without acute exacerbation or status asthmaticus Severe persistent Please specify if with or without acute exacerbation or status asthmaticus Other (explain) Clinically unable to determine (explain) Thank you, Mel Perez, CCS, CDIS Use of terms such as suspected, likely, concern for, or probable (associated with a specific diagnosi s that is being evaluated, monitored, or treated as if it exists) are acceptable and can be coded in the inpatient se tting, when documented at the time of discharge. Please use your independent medical judgment in providing your response. THIS QUERY IS PART OF THE PERMANENT MEDICAL RECORD
[2023-11-05 18:13] LABS: Glucose, Whole Blood 167 mg/dL (60-115)
[2023-11-05 19:21] LABS: CDiff Gene PCR NEGATIVE (Negative)
[2023-11-05 19:24] LABS: Leukocytes Stool Qualitative NEGATIVE (NEGATIVE)
--- NOTE | 2023-11-05 20:03 | PM.EVENT ---
Event Note Date of Service: 11/05/23 Event Note: Nurse reported that patient had a syncopal episode as he was attempting to go to the bathroom using a walker. No jerking movement of extremities, no chest pain. Did have a similar episode of orthostatic syncope yesterday. Time Spent With Patient Time: Total time managing care of this patient today ____ minutes.
[2023-11-05 20:41] LABS: Glucose, Whole Blood 112 mg/dL (60-115)
[2023-11-05 22:21] LABS: MANUAL DIFF FLAG NO
[2023-11-05 22:26] LABS: Basophils Percent Auto 0.3 % (0-2); Eosinophils Absolute Auto 0.5 X10*3/uL (0.0-0.4); Imm Gran Abs Auto 0.22 X10*3/uL (0.00-0.03); Imm Gran Pct Auto 1.8 % (0.0-0.4); Lymphocytes Absolute Auto 2.2 X10*3/uL (1.2-4.9); Lymphocytes Percent Auto 18.6 % (20-40); Mean Corpuscular HGB Conc 31.7 g/dl (31.0-36.0); Mean Corpuscular Hemoglobin 30.6 pg (27.0-33.0); Mean Corpuscular Volume 96.5 fL (80.0-98.0); Mean Platelet Volume 10.7 fL (9.4-12.4); Monocytes Percent Auto 8.6 % (2-11); Neutrophils Absolute Auto 7.9 x10*3/uL (2.0-8.3); Neutrophils Percent Auto 66.7 % (45-73); Platelet Count 206 X10*3/uL (160-400); Red Blood Count 1.73 X10*6/uL (4.60-5.80); Red Cell Distribution Width 14.2 % (11.0-16.0); White Blood Count 11.9 X10*3/uL (4.8-10.8)
[2023-11-05 22:46] LABS: Hematocrit 16.7 % (42.0-52.0); Hemoglobin 5.3 g/dl (14.0-18.0)
[2023-11-06] VITALS (10 sets, daily range): BP systolic 136–195; BP diastolic 60–88; PULSE 74–97; RESP 16–20; TEMP 36.5–37.5; O2SAT 96–99
[2023-11-06] MEDS: Pantoprazole Sodium 40 MG/10 ML VIAL IVPUSH ×3 (00:18→17:16)
[2023-11-06 08:03] LABS: MANUAL DIFF FLAG NO
[2023-11-06 08:11] LABS: Basophils Percent Auto 0.4 % (0-2); Eosinophils Absolute Auto 0.5 X10*3/uL (0.0-0.4); Eosinophils Percent Auto 4.3 % (0-4); Imm Gran Abs Auto 0.18 X10*3/uL (0.00-0.03); Imm Gran Pct Auto 1.7 % (0.0-0.4); Lymphocytes Absolute Auto 1.8 X10*3/uL (1.2-4.9); Lymphocytes Percent Auto 16.6 % (20-40); Mean Corpuscular HGB Conc 31.4 g/dl (31.0-36.0); Mean Corpuscular Hemoglobin 30.3 pg (27.0-33.0); Mean Corpuscular Volume 96.5 fL (80.0-98.0); Mean Platelet Volume 10.6 fL (9.4-12.4); Monocytes Absolute Auto 0.8 X10*3/uL (0.1-1.2); Monocytes Percent Auto 7.5 % (2-11); Neutrophils Absolute Auto 7.4 x10*3/uL (2.0-8.3); Neutrophils Percent Auto 69.5 % (45-73); Platelet Count 199 X10*3/uL (160-400); Red Blood Count 1.98 X10*6/uL (4.60-5.80); Red Cell Distribution Width 15.7 % (11.0-16.0); White Blood Count 10.7 X10*3/uL (4.8-10.8)
[2023-11-06] MEDS: hydrALAZINE HCl 20 MG/ML VIAL 5 MG IVPUSH ×3 (08:27→22:02)
[2023-11-06 08:29] LABS: Hematocrit 19.1 % (42.0-52.0)
[2023-11-06 08:31] LABS: Anion Gap 15 (12-20); Blood Urea Nitrogen 91 mg/dL (9-16); Calcium 8.4 mg/dL (8.4-10.2); Carbon Dioxide 20 mmol/L (22-29); Chloride 118 mmol/L (96-108); Creatinine Clr Calc Pharmacy 17.7; Estimated Glomerular Filt Rate 11; Glucose Random 182 mg/dL (60-115); Magnesium 2.3 mg/dL (1.6-2.6); Phosphorus 3.8 mg/dL (2.7-4.5); Potassium 5.1 mmol/L (3.3-5.1); Sodium 148 mmol/L (135-145)
[2023-11-06] MEDS: Insulin Lispro 100 UNIT/ML 3 ML VIAL SUBCUT ×4 (10:00→22:01)
--- NOTE | 2023-11-06 10:42 | MHC.SL.IMP ---
Date of Plan of Treatment: 11/04/23 Onset of Symptoms/Illness: 10/20/23 Date Treatment Started: 10/27/23 Admitting Diagnosis: Acute PRICING ANALYST CVA Primary Speech & Language Diagnosis: R13.12 Oropharyngeal Phase Dysphagia Reason for Today's Visit: [id number] Modified Barium Swallow Study Comments: Mr. Chino is an unfortunate 50 year-old male admitted initially for acute kidney injuries. He was noted to develop dysphagia at bedside and had an initial MBSS on 10/27/23 that found, ?Wide open airway with kati aspiration observed on thin, nectar thick, and puree consistencies. Patient elicited a cough, reflex was sometimes immediate and other times delayed. Contrast did not expel from the airway with coughing. Mild retention in the valleculae and pyriforms. Exam was discontinued for patient safety as he would likely continue to aspirate.? He was ordered a Neck CT to rule out occlusion or mass that could be causing his relatively new onset dysphagia. Unfortunately the imaging revealed a ?large acute to subacute infarct within the left PRICING ANALYST territory involving significant portions of the left occipital lobe and left temporal occipital lobe junction?. Also of note, ?Etiologies of dysphagia may not be detected without contrast. The superior cornu of the thyroid cartilage encroaches upon the right greater than left piriform sinus which can contribute to dysphagia; superior thyroid cornu syndrome.? For this he is recommended to follow-up with an ENT on an outpatient basis. 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 Chiari malformation have been associated with Dysphagia, for this further monitoring and referral to possible surgical interventions may be warranted. He has at time become combative with staff over his diet recommendation despite repeated and extensive education and counselling. He continues to decline a feeding tube as well as rehab placement at a SNF. He has been participating in therapeutic ice chip trials has been shown the Effortful Swallow exercise, and the Lcarissa Maneuver. Today?s MBSS is to reassess for any changes and make appropriate recommendations for disposition planning. Pre-evaluation Dietary Consistencies: NPO Pre-evaluation Liquid Consistency: NPO Pre-evaluation Medication Administration: NPO Reason for Study: Repeat MBSS Referring Physician: Dr. Claudia Oconnor Evaluating Clinician: Noah Galaviz M.A., CCC-[employer] [facility] [place] ImP ID: [id number] Study Number: 2 Patient Name: Howard Chino Status: Inpatient Age: 53 Gender: Male Medical History: Metabolic acidosis Right foot ulcer Anxiety History of foot ulcer Obesity (BMI 30-39.9) Depression Rotator cuff arthropathy of left shoulder Vitamin D deficiency Allergic rhinitis Anemia Pure hypercholesterolemia Benign essential hypertension Diabetic polyneuropathy Type 2 diabetes mellitus with diabetic chronic kidney disease Erectile dysfunction Type 2 diabetes mellitus with hyperglycemia, with long-term current use of insulin Type 2 diabetes mellitus with diabetic polyneuropathy Type 2 diabetes mellitus with chronic kidney disease 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 LDL goal <70 Surgical History: History of nasal surgery Current (pre-evaluation) Intake/Diet: Route: NPO Pre-Study Functional Oral Intake Scale (FOIS): 1- No oral intake Pain: None reported at time of study Oral Motor Exam Facial Symmetry: Normal for Patient Symmetrical Facial Movement: Controlled Mouth Occlusion: Normal Oral-Facial Teeth Characteristics: Intact/Normal Oral-Facial Teeth Miscellaneous Observation: Oral-Facial Lip Pucker Description: Normal Oral-Facial Smile (Lips) Description: Normal Oral-Facial Puff Cheeks Description: Normal Tongue Size: Normal Tongue Frenum Length: Tongue Excursion Description: Normal Tongue Range of Movement Description: Normal Tongue Speed of Movement Description: Normal Tongue Strength of Movement (against opposing pressure): Normal Tongue Movement Characteristics: Normal/Absent Oral Expression Ability: No Impairment Is patient able to manage secretions?: Yes Is patient able to produce volitional cough?: Yes Food and Liquid Trials: Oral Impairment: Lip Closure: 0=No labial escape Oral Impairment: Tongue Control During Bolus Hold: Did not test Oral Impairment: Bolus Preparation/Mastication: 1=Slow prolonged chewing/mashing with complete re-collection Oral Impairment: Bolus Transport/Lingual Motion: 1= Delayed initiation of tongue motion Oral Impairment: Oral Residue: 2=Residue collection on oral structures Oral Impairment:Initiation of Pharyngeal Swallow: 3=Bolus head in pyriforms Pharyngeal Impairment: Soft Palate Elevation: 0=No bolus between soft palate (SP)/pharyngeal wall (PW) Pharyngeal Impairment: Laryngeal Elevation: 1=Partial thyroid cartilage/arytenoids to epiglottic petiole movement Pharyngeal Impairment: Anterior Hyoid Excursion: 1=Partial anterior movement Pharyngeal Impairment: Epiglottic Movement: 0=Complete inversion Pharyngeal Impairment: Laryngeal Vestibular Closure:: 1=Incomplete: narrow column air/contrast in laryngeal vestibule Pharyngeal Impairment: Pharyngeal Stripping Wave: 0=Present: complete Pharyngeal Impairment: Pharyngeal Contraction: Did not test Pharyngeal Impairment: Pharyngoesophageal Segment Openin=Complete distension and complete duration: no obstruction of flow Pharyngeal Impairment: Tongue Base (TB) Retraction: 1=Trace column of contrast/air between TB and posterior PW Pharyngeal Impairment: Pharyngeal Residue: 2=Collection of residue within or on pharyngeal structures Pharyngeal Impairment: Esophageal Clearance Upright Position: Did not test Impressions and Recommendations Clinical Observations: Time-out: performed at 12:15 Evaluation Start: 12:30; Stop: 12:45 Patient Positioning: Seated 70-90 degrees Viewing Planes: LATERAL ONLY Contrast: MBSImP? Standardized Protocol using commercially prepared, standardized Barium viscosities, including: Varibar? THIN LIQUID (40% w/v, <15 cps) , Varibar? NECTAR (40% w/v, <150-450 cps) , Varibar? PUDDING (40% w/v, <8748-0386 cps) , Se Cracker (1 x1 x.25 ) [facility] ID: [id number] [facility] Results: Lip closure for intraoral bolus containment resulted in interlabial escape, without progression to the anterior lip. Tongue control during bolus hold maintained a cohesive bolus held between tongue to palate seal. Bolus preparation and mastication resulted in slow, prolonged chewing/mashing but with complete re-collection. Bolus transport/lingual motion demonstrated delayed initiation of tongue motion. Oral residue was a collection on oral structures. Initiation of the pharyngeal swallow occurred when the bolus head was in the pyriform sinuses. Soft palate elevation resulted in no bolus between the soft palate and the pharyngeal wall. Laryngeal elevation was decreased, with partial superior movement of the thyroid cartilage/partial approximation of the arytenoids to the epiglottic petiole. Anterior hyoid excursion demonstrated partial anterior movement. Epiglottic movement resulted in complete inversion. Laryngeal vestibular closure was incomplete, with a narrow column of air/contrast noted within the laryngeal vestibule at the height of the swallow. Pharyngeal stripping wave was present and complete. Pharyngeal contraction could not be determined due to logistical reasons not related to physiologic impairment. Pharyngoesophageal segment opening was completely distended for complete duration with no obstruction of bolus flow. Tongue base retraction allowed a trace column of contrast or air between the retracted tongue base and the posterior pharyngeal wall. Pharyngeal residue was a collection of residue within or on pharyngeal structures. Esophageal clearance in the upright position could not be assessed due to logistical reasons not related to physiologic impairment. SUMMARY: Today?s study demonstrated improvement in his swallowing. Using the MBSImP scoring he improved to an overall Oral and Pharyngeal Impairment score of 12. Esophageal components were not addressed in either study. He did demonstrate an aspiration event during the study when drinking thin liquids after solid residue was present in his vallecular space. This caused the contrast to significantly pool in his pyriform sinuses prior to swallow initiation and resulted in aspiration below the vocal folds with a delayed cough. When given nectar thick liquids under the same condition (with pharyngeal residue present), the aspiration was eliminated with flash penetration only. Of note subsequent sips of [place]-Thick Liquids helped to clear remaining pharyngeal residue. Given that he demonstrated only mild penetration for thin liquids without the presence of pharyngeal residue, he may be a good candidate for the Jonas Free Water Protocol. Further education and handouts were provided to the Pt and his Sister after the study was completed. Liquid Intake Recommendation: [place]-Thick Liquids Liquid Intake Strategies: Small Sips Dietary Recommendations: Chopped/Advanced (NDD3) Medication Administration: Whole with Puree Please contact the pharmacy regarding appropriate crushable or liquid drug formulations that are available whenever modified delivery is recommended. Compensatory Strategies Recommended: Sitting Upright (90 deg) Supervision during eating and or drinking: Total Assistance (1:1) Recommended Treatments: Compens. Strategy Educat. Recommendation for Speech Therapy: Inpatient Speech Therapy Speech Therapy through [facility] Text Comment: The following exercises have been used in therapy and improvement(s) in swallowing function was/were seen today: Effortful Swallow eliminated Aspiration Clarissa Maneuver eliminated Aspiration PLAN: Intake Recommendations: Route: PO Diet Grade: IDDSI Levels: 6-Soft & Bite-Sized Liquid Consistencies: IDDSI Levels: 2-Mildly Thick Post-Study Functional Oral Intake Scale (FOIS): 5- Total oral intake of multiple consistencies requiring special preparation Therapy Recommendations: Therapy will be continued The following compensatory strategies and/or therapeutic exercises will be part of the upcoming therapy/management plan: [place]-thick Liquid Bolus Volume Change Additional Swallow(s) per Bolus Effortful Swallow Prognosis for Improvement: The prognosis for the patient to meet nutritional needs by mouth is good based on degree of impairment, stimulability for treatment, level of motivation, support system. Patient's Personal Goals: Establish diet so he can be discharged. Assisted Goals: ? The patient will tolerate the least restrictive diet with a safe/efficient swallow to maintain adequate nutrition and hydration. ? The patient will demonstrate improved swallowing function via repeat clinical evaluation, videoendoscopy/videofluoroscopy and/or patient self-rating scores. ? The patient and/or family will participate in further education for swallowing goals. Short Term Goals: ? Diet - The patient will tolerate a IDDSI Level 6 diet with nectar thick liquids without signs or symptoms of penetration/aspiration 90% of the time. - The patient will participate in therapeutic PO trials with the [employer]. ? Guidelines - The patient will comply with/recall the following guidelines/strategies 90% of the time with moderate cuing: [place]-thick Liquid, Bolus Volume Change, Effortful Swallow (used during PO intake), 90. ? Independent Home Exercise ? Structured Therapy - The patient will demonstrate 90% accuracy and require moderate cuing in structured swallowing therapy with the [employer] using the following exercises/therapy approaches and therapy assisted devices: Travis Maneuver, Shaker Head Lifts, Clarissa Maneuver, . ? Education - The patient, caregiver will verbalize/demonstrate understanding of the results of this evaluation, the above recommendations, and the swallowing guidelines. Frequency/Duration: Daily M-F Date Range for Service Requested: N/a Timeline to reassess: PRN Care Attendant Clinician/Clinical Fellow: No Supervisory Statement: N/A Speech Language Pathologist: Noah Galaviz M.A., [facility]-[employer]
[2023-11-06 10:46] LABS: Glucose, Whole Blood 174 mg/dL (60-115)
--- NOTE | 2023-11-06 10:56 | P.PNIM_ITS ---
Subjective Subjective Date of Service: 11/06/23 Interval History: another presyncopal episode, melena, found to have drop in h and h Physical Exam 2 Vital Signs: Vital Signs: Last Vital Signs Temp 97.9 F 11/06/23 10:54 Pulse 74 11/06/23 10:54 Resp 18 11/06/23 10:54 BP 174/72 H 11/06/23 10:54 Pulse Ox 99 11/06/23 07:54 O2 Del Method Room Air 11/06/23 07:54 O2 Flow Rate 2 10/30/23 23:35 Oxygen Flow Rate 2 10/27/23 08:00 BMI result Body Mass Index 34.8 GENERAL APPEARANCE: Upset and wants to go home. NECK: no carotid bruit, no jugular venous distention. Right IJ - TLC. SKIN: no suspicious lesions, warm and dry. HEART: no murmurs, regular rate and rhythm. LUNGS: clear to auscultation bilaterally. ABDOMEN: soft, nontender. EXTREMITIES: no edema. PERIPHERAL PULSES: equal. NEUROLOGIC: No gross deficits, AAO X 3 Objective Data Active Medications Acetaminophen (Acetaminophen 325 Mg Tablet) 650 mg PO Q6H PRN PRN Reason: pain or fever Last Admin: 10/27/23 12:43 Dose: 650 mg Documented By: ANKIT Albuterol/Ipratropium (Albuterol/Iprat 2.5/0.5mg 3 Ml Ampul.Neb) 3 ml INHALE ONCE PRN PRN Reason: wheezing Amlodipine Besylate (Amlodipine Besylate 5 Mg Tablet) 5 mg PO DAILY [facility]; Protocol Last Admin: 11/06/23 08:33 Dose: Not Given Documented By: CECILLE Non-Admin Reason: Patient Refused Atorvastatin Calcium (Atorvastatin Calcium 80 Mg Tablet) 80 mg PO BEDTIME ROSS Last Admin: 11/05/23 22:10 Dose: Not Given Documented By: MILAGROS Non-Admin Reason: Patient Refused Diazepam (Diazepam 10 Mg/2 Ml Cartridge) 5 mg IVPUSH Q6H PRN PRN Reason: Anxiety Diphenhydramine HCl (Diphenhydramine Hcl 50 Mg/Ml Vial) 25 mg IVPUSH BEDTIME PRN PRN Reason: Insomnia Last Admin: 10/31/23 21:50 Dose: 25 mg Documented By: HO.WRIGHTS Haloperidol Lactate (Haloperidol Lactate 5 Mg/Ml Vial) 5 mg IM ONCE PRN PRN Reason: anxiety/restlessness Hydralazine HCl (Hydralazine Hcl 20 Mg/Ml Vial) 5 mg IVPUSH Q6H [facility]; Protocol Last Admin: 11/06/23 08:27 Dose: 5 mg Documented By: CECILLE Dextrose (D10) 250 mls @ 750 mls/hr IV Q15M PRN PRN Reason: per Hypoglycemia Standing Ord. Insulin Glargine (Insulin Glargine,Hum.Rec.Anlog 100 Unit/Ml 10 Ml Vial) 25 unit SUBCUT DAILY [facility] Last Admin: 11/06/23 09:42 Dose: Not Given Documented By: CECILLE Non-Admin Reason: Physician Approved Insulin Human Lispro (Insulin Lispro 100 Unit/Ml 3 Ml Vial) 0 unit SUBCUT QIDAS [facility]; Protocol Last Admin: 11/06/23 10:00 Dose: 2 unit Documented By: CECILLE Insulin Human Lispro (Insulin Lispro 100 Unit/Ml 3 Ml Vial) 5 unit SUBCUT QIDAS [facility] Last Admin: 11/06/23 09:41 Dose: Not Given Documented By: CECILLE Non-Admin Reason: Physician Approved Lidocaine (Lidocaine 4 % Patch Adh..Patch) 1 patch TRANSDERMA DAILY [facility]; Protocol Last Admin: 11/06/23 08:39 Dose: Not Given Documented By: CECILLE Non-Admin Reason: Patient Refused Ondansetron HCl (Ondansetron Hcl 4 Mg/2 Ml Vial) 4 mg IVPUSH Q6H PRN PRN Reason: Nausea Last Admin: 10/25/23 17:10 Dose: 4 mg Documented By: MARY JANE Pantoprazole Sodium (Pantoprazole Sodium 40 Mg/10 Ml Vial) 40 mg IVPUSH BID@0630,1630 [facility] Last Admin: 11/06/23 08:27 Dose: 40 mg Documented By: CECILLE Labs 11/06/23 07:36 11/06/23 07:36 Labs: Laboratory Results - last 24 hr 11/05/23 11/05/23 11/05/23 11:02 16:33 17:36 MCV MCH MCHC RDW Plt Count MPV Immature Gran % (Auto) Neut % (Auto) Lymph % (Auto) Cooper % (Auto) Eos % (Auto) Baso % (Auto) Lymph # (Auto) Cooper # (Auto) Eos # (Auto) Baso # (Auto) Abs Immat Gran (auto) Absolute Neuts (auto) Absolute Nucleated RBC Nucleated RBC % (auto) Anion Gap Estim Creat Clear Calc Estimated GFR POC Glucose 266 H 167 H Random Glucose Calcium Phosphorus Magnesium Albumin Stool Leukocytes, Qual NEGATIVE C. difficile Tox B Gene NEGATIVE Blood Type Antibody Screen Crossmatch 11/05/23 11/05/23 11/05/23 20:05 22:15 23:53 MCV 96.5 MCH 30.6 MCHC 31.7 RDW 14.2 Plt Count 206 D MPV 10.7 Immature Gran % (Auto) 1.8 H Neut % (Auto) 66.7 Lymph % (Auto) 18.6 L Cooper % (Auto) 8.6 Eos % (Auto) 4.0 Baso % (Auto) 0.3 Lymph # (Auto) 2.2 Cooper # (Auto) 1.0 Eos # (Auto) 0.5 H Baso # (Auto) 0.0 Abs Immat Gran (auto) 0.22 H Absolute Neuts (auto) 7.9 Absolute Nucleated RBC 0.000 Nucleated RBC % (auto) 0.0 Anion Gap Estim Creat Clear Calc Estimated GFR POC Glucose 112 Random Glucose Calcium Phosphorus Magnesium Albumin Stool Leukocytes, Qual C. difficile Tox B Gene Blood Type O Positive Antibody Screen NEGATIVE Crossmatch See Detail 11/06/23 11/06/23 07:36 08:39 MCV 96.5 MCH 30.3 MCHC 31.4 RDW 15.7 Plt Count 199 MPV 10.6 Immature Gran % (Auto) 1.7 H Neut % (Auto) 69.5 Lymph % (Auto) 16.6 L Cooper % (Auto) 7.5 Eos % (Auto) 4.3 H Baso % (Auto) 0.4 Lymph # (Auto) 1.8 Cooper # (Auto) 0.8 Eos # (Auto) 0.5 H Baso # (Auto) 0.0 Abs Immat Gran (auto) 0.18 H Absolute Neuts (auto) 7.4 Absolute Nucleated RBC 0.000 Nucleated RBC % (auto) 0.0 Anion Gap 15 Estim Creat Clear Calc 17.7 Estimated GFR 11 POC Glucose 174 H Random Glucose 182 H Calcium 8.4 Phosphorus 3.8 Magnesium 2.3 Albumin 3.0 L Stool Leukocytes, Qual C. 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 DKA resolved, hyperkalemia resolved, downgraded to medical floor 10/25/23. course copmlicated by acute hypoxia and fevers (not meeting SIRS) Right sided weakness, swallowing problem 2/2 Acute embolic stroke Noted on CT scan, confirmed by MRI to have multiple locations of acute infarcts Echo w bubble not showing VSD\ASD Neurology input appreciated, multiple acute strokes primarily in the left posterior cerebral territory and one in the right hemisphere as well suggesting embolic etiology started ASA and Plavix but now on hold for gi bleed [employer]D SYSTEM[employer] ARCHITECT continue to follow, tolerating NDD3 PT\OT following hold off G-tube placement now as he is tolerating diet Syncopal episode 2/2 orthostatic vitals due to acute blood loss anemia due to presumed upper gi bleed iv protonix, transfuse 2 units, holding antiplatelets, gi following, monitor cbc Elevated Trop Denies chest pain trending down EKG with no ST\T-wave changes to suggest ACS on tele NATALIA on CKD 5 complicated by acute metabolic acidosis,hyperkalemia, and anemia Had a session of hemodialysis, Nephrology following, nonoliguric Randolph removed , no retention Cr at 5.6 , BUN 70s Making fair amount of urine Continue flomax when taking po To remove CVC once we secure peripheral IV Nephro input appreciated, to follow up as outpatient in 1 week follow BMP Acute Hyperkalemia resolved repeat BMP Nephro following for need of urgent dialysis Acute hypernatremia resolved Follow BMP Hyperglycemia 2/2 Diabetes with DKA decrease Lantus to 25 SSI Basal bolus insulin, monitor Fever without sepsis and acute hypoxic respiratory failure 2/2 aspiration pneumonia Finished 10 days of IV Zosyn cultures negative DVT prophylaxis- mechanical due to gi bleed Full code reason for continued hospitalization: gi bleed Quality Stroke Does the patient have a stroke diagnosis?: No VTE Prior VTE?: No VTE Risk Level:: Medical - moderate - high VTE Device Contraindication: N/A - Device Ordered VTE Drug Contraindication: N/A - Med Ordered
[2023-11-06 11:43] LABS: Glucose, Whole Blood 167 mg/dL (60-115)
--- NOTE | 2023-11-06 11:51 | P.CNGI_ITS ---
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 Gastroenterology has been consulted after patient was found to have acute on chronic anemia and to presyncopal events. Per nursing report, patient also has had at least 2-3 loose black bowel movements in the last 24 hours. Patient does not report any abdominal pain, nausea, vomiting. He has residual dysphagia after the stroke (level 3 diet). As noted above, patient has chronic anemia due to advanced CKD and hemoglobin has been between 7-8 during this admission. Yesterday, with a CBC was rechecked after the presyncopal event, hemoglobin was noted to be down to 5.3. Since then he has had 2 PRBCs transfused. Currently at bedside, disengaged, but alert, awake and answering questions appropriately. Review of Systems 2 Review of Systems: Yes all other systems are reviewed and are negative PMFSH Past Medical History Medical History (Updated 11/06/23 @ 14:00 by Sylvie Arriaza MD) Metabolic acidosis Right foot ulcer Anxiety History of foot ulcer Obesity (BMI 30-39.9) Depression Rotator cuff arthropathy of left shoulder Vitamin D deficiency Allergic rhinitis Anemia Pure hypercholesterolemia Benign essential hypertension Diabetic polyneuropathy Type 2 diabetes mellitus with diabetic chronic kidney disease Erectile dysfunction Type 2 diabetes mellitus with hyperglycemia, with long-term current use of insulin Type 2 diabetes mellitus with diabetic polyneuropathy Type 2 diabetes mellitus with chronic kidney disease 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 LDL goal <70 Family History Family History Father Lung cancer Mother Hypertension Coronary artery disease CVD (cardiovascular disease) TIA (transient ischemic attack) Sister Diabetes Maternal Uncle Diabetes Other Mental health problem Surgical History Surgical History History of nasal surgery Social History Social History Household Members: Unknown / Unable to assess Housing: Unknown / Unable to assess Do you presently have visiting nurse or other home services: No Alcohol intake: current Alcohol intake frequency: holidays/special occasions only Comment: sister in room Patient Tobacco Use Status: Never used Tobacco e-Cigarette/Vaping Use: Never Used Second Hand Smoke Exposure: Yes service: No Current occupational status: unemployed Cognitive needs: No Hearing needs: No Vision needs: No Meds Allergies Allergy/AdvReac Type Severity Reaction Status Date / Time No Known Allergies Allergy Verified 10/24/23 18:33 Active Medications: Current Medications Acetaminophen (Acetaminophen 325 Mg Tablet) 650 mg PO Q6H PRN PRN Reason: pain or fever Last Admin: 10/27/23 12:43 Dose: 650 mg Albuterol/Ipratropium (Albuterol/Iprat 2.5/0.5mg 3 Ml Ampul.Neb) 3 ml INHALE ONCE PRN PRN Reason: wheezing Amlodipine Besylate (Amlodipine Besylate 5 Mg Tablet) 5 mg PO DAILY [facility]; Protocol Last Admin: 11/06/23 08:33 Dose: Not Given Atorvastatin Calcium (Atorvastatin Calcium 80 Mg Tablet) 80 mg PO BEDTIME ROSS Last Admin: 11/05/23 22:10 Dose: Not Given Diazepam (Diazepam 10 Mg/2 Ml Cartridge) 5 mg IVPUSH Q6H PRN PRN Reason: Anxiety Diphenhydramine HCl (Diphenhydramine Hcl 50 Mg/Ml Vial) 25 mg IVPUSH BEDTIME PRN PRN Reason: Insomnia Last Admin: 10/31/23 21:50 Dose: 25 mg Haloperidol Lactate (Haloperidol Lactate 5 Mg/Ml Vial) 5 mg IM ONCE PRN PRN Reason: anxiety/restlessness Hydralazine HCl (Hydralazine Hcl 20 Mg/Ml Vial) 5 mg IVPUSH Q6H [facility]; Protocol Last Admin: 11/06/23 08:27 Dose: 5 mg Dextrose (D10) 250 mls @ 750 mls/hr IV Q15M PRN PRN Reason: per Hypoglycemia Standing Ord. Insulin Glargine (Insulin Glargine,Hum.Rec.Anlog 100 Unit/Ml 10 Ml Vial) 25 unit SUBCUT DAILY [facility] Last Admin: 11/06/23 09:42 Dose: Not Given Insulin Human Lispro (Insulin Lispro 100 Unit/Ml 3 Ml Vial) 0 unit SUBCUT QIDACHS [facility]; Protocol Last Admin: 11/06/23 10:00 Dose: 2 unit Insulin Human Lispro (Insulin Lispro 100 Unit/Ml 3 Ml Vial) 5 unit SUBCUT QIDACHS [facility] Last Admin: 11/06/23 09:41 Dose: Not Given Lidocaine (Lidocaine 4 % Patch Adh..Patch) 1 patch TRANSDERMA DAILY [facility]; Protocol Last Admin: 11/06/23 08:39 Dose: Not Given Ondansetron HCl (Ondansetron Hcl 4 Mg/2 Ml Vial) 4 mg IVPUSH Q6H PRN PRN Reason: Nausea Last Admin: 10/25/23 17:10 Dose: 4 mg Pantoprazole Sodium (Pantoprazole Sodium 40 Mg/10 Ml Vial) 40 mg IVPUSH BID@0630,1630 [facility] Last Admin: 11/06/23 08:27 Dose: 40 mg Home Medications ?Medication ?Instructions ?Recorded ?Confirmed ?Last Taken ?Type hydralazine 50 mg tablet 50 mg PO TID 10/24/23 10/24/23 Unknown History oxycodone 5 mg tablet 5 mg PO TID PRN severe pain 10/24/23 Unknown History Physical Exam 2 Vital Signs: Vital Signs: Last Vital Signs Temp 97.9 F 11/06/23 10:57 Pulse 80 11/06/23 10:57 Resp 18 11/06/23 10:57 BP 173/70 H 11/06/23 10:57 Pulse Ox 99 11/06/23 07:54 O2 Del Method Room Air 11/06/23 07:54 O2 Flow Rate 2 10/30/23 23:35 Oxygen Flow Rate 2 10/27/23 08:00 BMI result Body Mass Index 34.8 Appears older than stated age Able to speak in full sentences, no dysarthria noted No overt respiratory distress Abdomen soft, nontender Mild lower extremity edema Results Labs 11/06/23 07:36 11/06/23 07:36 Labs: Short CBC 11/05/23 11/06/23 Range/Units 22:15 07:36 WBC 11.9 H 10.7 (4.8-10.8) X10*3/uL Hgb 5.3 L* D 6.0 L* (14.0-18.0) g/dl Hct 16.7 L* D 19.1 L* (42.0-52.0) % Plt Count 206 D 199 (160-400) X10*3/uL BMP 11/06/23 07:36 Sodium 148 H Potassium 5.1 Chloride 118 H Carbon Dioxide 20 L BUN 91 H Creatinine 5.63 H* Calcium 8.4 Liver Function 11/06/23 Range/Units 07:36 Albumin 3.0 L (3.5-5.0) g/dL Microbiology Microbiology Results: Microbiology 10/24/23 19:12 Blood - Venous Blood Culture - Final No growth after 5 days. 10/24/23 18:51 Blood - Venous Blood Culture - Final No growth after 5 days. Assessment and Plan (1) Anemia due to chronic kidney disease: Status: Acute (2) GI bleed: Status: Acute (3) Chronic kidney disease, stage V: Status: Acute (4) Hypotension: Status: Acute Plan Overall presentation consistent with acute and chronic anemia due to upper GI bleed. Most likely due to stress ulcers given prolonged hospitalization with multiple comorbidities and most recently addition of dual antiplatelet therapy. Other differentials include PUD, esophagitis, gastritis, duodenitis, AVMs. Patient at high periprocedural risk at current clinical status and would recommend medical management at this time. Plan: - Agree with IV PPI BID - Start carafate 10 ml QID x 14 days - Monitor CBC BID - If counts stabilise within 24-48h, can switch to PO and resume antiplatelet therapy - Procrit as per renal Thank you for allowing me to participate in his care. Please do not hesitate to reach out for any questions or concerns. Procedures Date of Service Date of Service: 11/06/23
--- NOTE | 2023-11-06 13:36 | MHC.SLORD ---
Speech Language Pathology Order Status: Patient made NPO 2/?GI bleed, possible endoscopy. Patient at time of visit sleeping, recieving blood tranfusion. Per RN, procedure will not be happening due to precautions around anesthesia, and will resume diet. Not appropriate for trials at this time, MOBILE APPLICATION ARCHITECT will continue to follow.
--- NOTE | 2023-11-06 16:20 | HO.WOUND ---
Wound Consult: Attempted - Chart review and discussion with direct care nurse 53yr old?male admitted to [facility] on 10/24/23 - See progress notes and H&P for detailed history.? Wound consult placed for Right Buttock wound.? Topical recommendations made below after photo review and chart review. Sacrum Etiology: Moisture Associated Skin Damage - appears to have friction component noted - direct care team reports tissue blanches Wound Bed: resurfacing partial thickness tissue loss Edges: ? irregular Liseth wound: MASD Goals of Treatment: ? Barrier cream and foam dressing if incontinence is controlled. Will follow up at future date and or time to assess in person. Recommendations: 1. Turn and Reposition every 2 hours and as needed for patient comfort.? Use pillows or wedges to support off loading positions. 2. Off Load all bony prominences with use of pillows and heel boots if needed.? Apply Preventative foams where needed. ? 3. Monitor for incontinence and moisture control, use barrier creams when needed for prevention and treatment. 4. Provide adequate and supplemental nutrition.? 5. Order or Continue low air loss mattress. 6. When applicable maintain blood glucose levels per Providers order. 7. Sacrum - Off Load Pressure - Cleanse with PH balance spray or wipes, pat dry. ?Apply thin layer of Triad to wound bed. Do not remove all of paste between applications as this may cause further skin damage.? Cover with foam dressing to aid in off loading and protection from friction. Re-consult wound care Nurse for wound deterioration or wound changes.
[2023-11-06 16:46] LABS: Glucose, Whole Blood 181 mg/dL (60-115)
--- NOTE | 2023-11-06 19:53 | P.PNNP_ITS ---
Subjective Subjective Date of Service: 11/06/23 Interval history: Had presyncopal episode, melena, found to have drop in h and h; renal functions stable Physical Exam 2 Vital Signs: Vital Signs: Last Vital Signs Temp 98.2 F 11/06/23 16:06 Pulse 85 11/06/23 16:06 Resp 19 11/06/23 16:06 BP 165/88 H 11/06/23 16:06 Pulse Ox 97 11/06/23 16:06 O2 Del Method Room Air 11/06/23 16:06 O2 Flow Rate 2 10/30/23 23:35 Oxygen Flow Rate 2 10/27/23 08:00 BMI result Body Mass Index 34.8 Const: General: no acute distress Orientation/consciousness: patient oriented x3 Eyes: EOM: EOMs intact bilaterally Resp: Auscultation: diminished lung sounds Cardio: Rate: regular rate GI: Palpation (GI): Soft to palpation Neuro: General: patient oriented x3 Objective Data Labs 11/06/23 07:36 11/06/23 07:36 Labs: Laboratory Results - last 24 hr 11/05/23 11/05/23 11/05/23 20:05 22:15 23:53 WBC 11.9 H RBC 1.73 L D Hgb 5.3 L* D Hct 16.7 L* D MCV 96.5 MCH 30.6 MCHC 31.7 RDW 14.2 Plt Count 206 D MPV 10.7 Immature Gran % (Auto) 1.8 H Neut % (Auto) 66.7 Lymph % (Auto) 18.6 L Porter % (Auto) 8.6 Eos % (Auto) 4.0 Baso % (Auto) 0.3 Lymph # (Auto) 2.2 Porter # (Auto) 1.0 Eos # (Auto) 0.5 H Baso # (Auto) 0.0 Abs Immat Gran (auto) 0.22 H Absolute Neuts (auto) 7.9 Absolute Nucleated RBC 0.000 Nucleated RBC % (auto) 0.0 Sodium Potassium Chloride Carbon Dioxide Anion Gap BUN Creatinine Estim Creat Clear Calc Estimated GFR POC Glucose 112 Random Glucose Calcium Phosphorus Magnesium Albumin Blood Type O Positive Antibody Screen NEGATIVE Crossmatch See Detail 11/06/23 11/06/23 11/06/23 07:36 08:39 11:17 WBC 10.7 RBC 1.98 L Hgb 6.0 L* Hct 19.1 L* MCV 96.5 MCH 30.3 MCHC 31.4 RDW 15.7 Plt Count 199 MPV 10.6 Immature Gran % (Auto) 1.7 H Neut % (Auto) 69.5 Lymph % (Auto) 16.6 L Porter % (Auto) 7.5 Eos % (Auto) 4.3 H Baso % (Auto) 0.4 Lymph # (Auto) 1.8 Porter # (Auto) 0.8 Eos # (Auto) 0.5 H Baso # (Auto) 0.0 Abs Immat Gran (auto) 0.18 H Absolute Neuts (auto) 7.4 Absolute Nucleated RBC 0.000 Nucleated RBC % (auto) 0.0 Sodium 148 H Potassium 5.1 Chloride 118 H Carbon Dioxide 20 L Anion Gap 15 BUN 91 H Creatinine 5.63 H* Estim Creat Clear Calc 17.7 Estimated GFR 11 POC Glucose 174 H 167 H Random Glucose 182 H Calcium 8.4 Phosphorus 3.8 Magnesium 2.3 Albumin 3.0 L Blood Type Antibody Screen Crossmatch 11/06/23 16:42 WBC RBC Hgb Hct MCV MCH MCHC RDW Plt Count MPV Immature Gran % (Auto) Neut % (Auto) Lymph % (Auto) Porter % (Auto) Eos % (Auto) Baso % (Auto) Lymph # (Auto) Porter # (Auto) Eos # (Auto) Baso # (Auto) Abs Immat Gran (auto) Absolute Neuts (auto) Absolute Nucleated RBC Nucleated RBC % (auto) Sodium Potassium Chloride Carbon Dioxide Anion Gap BUN Creatinine Estim Creat Clear Calc Estimated GFR POC Glucose 181 H Random Glucose Calcium Phosphorus Magnesium Albumin Blood Type Antibody Screen Crossmatch Microbiology Microbiology Results: Microbiology 10/24/23 19:12 Blood - Venous Blood Culture - Final No growth after 5 days. 10/24/23 18:51 Blood - Venous Blood Culture - Final No growth after 5 days. Procedures Date of Service Date of Service: 11/06/23 Assessment & Plan Assessment and plan (1) Acute on chronic kidney failure: Status: Acute Plan 53-year-old man with stage IV CKD admitted with severe hyperkalemia due to diabetic ketoacidosis. He underwent emergency dialysis ; nonoliguric. Renal functions improved & stable; no further dialysis for now Transfuse PRN: Will need regular Procrit as outpatient; Continue with rest of his current management; Labs AM Progress Note: Quality Stroke Does the patient have a stroke diagnosis?: No
[2023-11-06 21:16] LABS: Glucose, Whole Blood 168 mg/dL (60-115)
[2023-11-07] VITALS (11 sets, daily range): BP systolic 149–217; BP diastolic 62–95; PULSE 71–79; RESP 16–20; TEMP 36.3–37.1; O2SAT 97–99
[2023-11-07] MEDS: hydrALAZINE HCl 20 MG/ML VIAL 5 MG IVPUSH ×4 (03:21→18:37)
[2023-11-07] MEDS: Pantoprazole Sodium 40 MG/10 ML VIAL IVPUSH ×2 (05:56→18:36)
[2023-11-07 07:27] LABS: Hematocrit 22.7 % (42.0-52.0); Hemoglobin 7.1 g/dl (14.0-18.0); Mean Corpuscular HGB Conc 31.3 g/dl (31.0-36.0); Mean Corpuscular Hemoglobin 29.5 pg (27.0-33.0); Mean Corpuscular Volume 94.2 fL (80.0-98.0); Mean Platelet Volume 10.2 fL (9.4-12.4); Platelet Count 188 X10*3/uL (160-400); Red Blood Count 2.41 X10*6/uL (4.60-5.80); Red Cell Distribution Width 17.1 % (11.0-16.0); White Blood Count 8.9 X10*3/uL (4.8-10.8)
[2023-11-07 08:02] LABS: Albumin Level 3.1 g/dL (3.5-5.0); Anion Gap 16 (12-20); Blood Urea Nitrogen 84 mg/dL (9-16); Calcium 8.2 mg/dL (8.4-10.2); Carbon Dioxide 19 mmol/L (22-29); Chloride 114 mmol/L (96-108); Creatinine Clr Calc Pharmacy 16.9; Estimated Glomerular Filt Rate 10; Glucose Fasting 333 mg/dL (60-99); Magnesium 2.2 mg/dL (1.6-2.6); Phosphorus 3.9 mg/dL (2.7-4.5); Potassium 5.2 mmol/L (3.3-5.1); Sodium 144 mmol/L (135-145)
[2023-11-07 08:06] LABS: Glucose, Whole Blood 337 mg/dL (60-115)
[2023-11-07] MEDS: Lidocaine 4 % Patch ADH..PATCH 1 PATCH TRANSDERMA (09:06)
--- NOTE | 2023-11-07 09:07 | P.PNNP_ITS ---
Subjective Subjective Date of Service: 11/07/23 Interval history: Events noted. All recent data reviewed Physical Exam 2 Vital Signs: Vital Signs: Last Vital Signs Temp 98.2 F 11/07/23 07:41 Pulse 79 11/07/23 07:41 Resp 18 11/07/23 07:41 BP 180/74 H 11/07/23 07:41 Pulse Ox 99 11/07/23 07:41 O2 Del Method Room Air 11/07/23 07:41 O2 Flow Rate 2 10/30/23 23:35 Oxygen Flow Rate 2 10/27/23 08:00 BMI result Body Mass Index 34.8 Const: General: no acute distress Neck: Neck: Yes supple Resp: Auscultation: diminished lung sounds Cardio: Rate: regular rate GI: Palpation (GI): Soft to palpation Neuro: General: moves all extremities Objective Data Labs 11/07/23 06:40 11/07/23 Unknown Labs: Laboratory Results - last 24 hr 11/05/23 11/06/23 11/06/23 23:53 08:39 11:17 WBC RBC Hgb Hct MCV MCH MCHC RDW Plt Count MPV Absolute Nucleated RBC Nucleated RBC % (auto) Sodium Potassium Chloride Carbon Dioxide Anion Gap BUN Creatinine Estim Creat Clear Calc Estimated GFR POC Glucose 174 H 167 H Random Glucose Fasting Glucose Calcium Phosphorus Magnesium Albumin Blood Type O Positive Antibody Screen NEGATIVE Crossmatch See Detail 11/06/23 11/06/23 11/07/23 16:42 20:54 06:40 WBC 8.9 RBC 2.41 L D Hgb 7.1 L Hct 22.7 L MCV 94.2 MCH 29.5 MCHC 31.3 RDW 17.1 H Plt Count 188 MPV 10.2 Absolute Nucleated RBC 0.000 Nucleated RBC % (auto) 0.0 Sodium Potassium Chloride Carbon Dioxide Anion Gap BUN Creatinine Estim Creat Clear Calc Estimated GFR POC Glucose 181 H 168 H Random Glucose Fasting Glucose Calcium Phosphorus Magnesium Albumin Blood Type Antibody Screen Crossmatch 11/07/23 11/07/23 08:02 Unknown WBC RBC Hgb Hct MCV MCH MCHC RDW Plt Count MPV Absolute Nucleated RBC Nucleated RBC % (auto) Sodium 144 Potassium 5.2 H Chloride 114 H Carbon Dioxide 19 L Anion Gap 16 BUN 84 H Creatinine 5.89 H* Estim Creat Clear Calc 16.9 Estimated GFR 10 POC Glucose 337 H Random Glucose 335 H Fasting Glucose 333 H Calcium 8.2 L Phosphorus 3.9 Magnesium 2.2 Albumin 3.1 L Blood Type Antibody Screen Crossmatch Microbiology Microbiology Results: Microbiology 10/24/23 19:12 Blood - Venous Blood Culture - Final No growth after 5 days. 10/24/23 18:51 Blood - Venous Blood Culture - Final No growth after 5 days. Procedures Date of Service Date of Service: 11/07/23 Assessment & Plan Assessment and plan (1) Acute on chronic kidney failure: Status: Acute Plan 53-year-old man with stage IV CKD admitted with severe hyperkalemia due to diabetic ketoacidosis. He underwent emergency dialysis ; nonoliguric. Renal functions fairly stable; no further dialysis for now Transfuse PRN: Will need regular Procrit as outpatient; Continue with rest of his current management; Labs AM Progress Note: Quality Stroke Does the patient have a stroke diagnosis?: No
[2023-11-07] MEDS: Insulin Glargine,Hum.rec.anlog 100 UNIT/ML 10 ML VIAL 25 UNIT SUBCUT (09:08)
[2023-11-07] MEDS: amLODIPine Besylate 10 MG TABLET PO (09:08)
[2023-11-07] MEDS: hydrALAZINE HCl 50 MG TABLET PO ×2 (09:08→22:01)
[2023-11-07] MEDS: Insulin Lispro 100 UNIT/ML 3 ML VIAL SUBCUT ×2 (09:08→12:45)
--- NOTE | 2023-11-07 10:16 | HO.PM.IMPN ---
Subjective Subjective Date of Service: 11/07/23 Interval History: ongoing melena Physical Exam Vital Signs: Vital Signs: Last Vital Signs Temp 98.2 F 11/07/23 07:41 Pulse 79 11/07/23 07:41 Resp 18 11/07/23 07:41 BP 180/74 H 11/07/23 07:41 Pulse Ox 99 11/07/23 07:41 O2 Del Method Room Air 11/07/23 07:41 O2 Flow Rate 2 10/30/23 23:35 Oxygen Flow Rate 2 10/27/23 08:00 BMI result Body Mass Index 34.8 Const: General: no acute distress Neck: Neck: Yes supple Resp: Auscultation: diminished lung sounds Cardio: Rate: regular rate GI: Palpation (GI): Soft to palpation Neuro: General: moves all extremities Objective Data Active Medications Acetaminophen (Acetaminophen 325 Mg Tablet) 650 mg PO Q6H PRN PRN Reason: pain or fever Last Admin: 10/27/23 12:43 Dose: 650 mg Documented By: ANKIT Albuterol/Ipratropium (Albuterol/Iprat 2.5/0.5mg 3 Ml Ampul.Neb) 3 ml INHALE ONCE PRN PRN Reason: wheezing Amlodipine Besylate (Amlodipine Besylate 10 Mg Tablet) 10 mg PO DAILY [facility]; Protocol Last Admin: 11/07/23 09:08 Dose: 10 mg Documented By: ROSALINE Atorvastatin Calcium (Atorvastatin Calcium 80 Mg Tablet) 80 mg PO BEDTIME ROSS Last Admin: 11/06/23 22:02 Dose: Not Given Documented By: MLIAGROS Non-Admin Reason: Patient Refused Diazepam (Diazepam 10 Mg/2 Ml Cartridge) 5 mg IVPUSH Q6H PRN PRN Reason: Anxiety Diphenhydramine HCl (Diphenhydramine Hcl 50 Mg/Ml Vial) 25 mg IVPUSH BEDTIME PRN PRN Reason: Insomnia Last Admin: 10/31/23 21:50 Dose: 25 mg Documented By: CLAYTON Haloperidol Lactate (Haloperidol Lactate 5 Mg/Ml Vial) 5 mg IM ONCE PRN PRN Reason: anxiety/restlessness Hydralazine HCl (Hydralazine Hcl 20 Mg/Ml Vial) 5 mg IVPUSH Q6H [facility]; Protocol Last Admin: 11/07/23 09:07 Dose: 5 mg Documented By: ROSALINE Hydralazine HCl (Hydralazine Hcl 50 Mg Tablet) 50 mg PO TID [facility]; Protocol Last Admin: 11/07/23 09:08 Dose: 50 mg Documented By: ROSALINE Dextrose (D10) 250 mls @ 750 mls/hr IV Q15M PRN PRN Reason: per Hypoglycemia Standing Ord. Insulin Glargine (Insulin Glargine,Hum.Rec.Anlog 100 Unit/Ml 10 Ml Vial) 25 unit SUBCUT DAILY [facility] Last Admin: 11/07/23 09:08 Dose: 25 unit Documented By: ROSALINE Insulin Human Lispro (Insulin Lispro 100 Unit/Ml 3 Ml Vial) 0 unit SUBCUT QIDACHS [facility]; Protocol Last Admin: 11/07/23 09:08 Dose: 8 unit Documented By: ROSALINE Insulin Human Lispro (Insulin Lispro 100 Unit/Ml 3 Ml Vial) 5 unit SUBCUT QIDACHS [facility] Last Admin: 11/07/23 07:22 Dose: Not Given Documented By: ROSALINE Non-Admin Reason: Physician Held Med Lidocaine (Lidocaine 4 % Patch Adh..Patch) 1 patch TRANSDERMA DAILY [facility]; Protocol Last Admin: 11/07/23 09:06 Dose: 1 patch Documented By: ROSALINE Ondansetron HCl (Ondansetron Hcl 4 Mg/2 Ml Vial) 4 mg IVPUSH Q6H PRN PRN Reason: Nausea Last Admin: 10/25/23 17:10 Dose: 4 mg Documented By: MARY JANE Pantoprazole Sodium (Pantoprazole Sodium 40 Mg/10 Ml Vial) 40 mg IVPUSH BID@0630,1630 [facility] Last Admin: 11/07/23 05:56 Dose: 40 mg Documented By: BELSITC Labs 11/07/23 06:40 11/07/23 Unknown Labs: Laboratory Results - last 24 hr 11/05/23 11/06/23 11/06/23 23:53 08:39 11:17 MCV MCH MCHC RDW Plt Count MPV Absolute Nucleated RBC Nucleated RBC % (auto) Anion Gap Estim Creat Clear Calc Estimated GFR POC Glucose 174 H 167 H Random Glucose Fasting Glucose Calcium Phosphorus Magnesium Albumin Blood Type O Positive Antibody Screen NEGATIVE Crossmatch See Detail 11/06/23 11/06/23 11/07/23 16:42 20:54 06:40 MCV 94.2 MCH 29.5 MCHC 31.3 RDW 17.1 H Plt Count 188 MPV 10.2 Absolute Nucleated RBC 0.000 Nucleated RBC % (auto) 0.0 Anion Gap Estim Creat Clear Calc Estimated GFR POC Glucose 181 H 168 H Random Glucose Fasting Glucose Calcium Phosphorus Magnesium Albumin Blood Type Antibody Screen Crossmatch 11/07/23 11/07/23 08:02 Unknown MCV MCH MCHC RDW Plt Count MPV Absolute Nucleated RBC Nucleated RBC % (auto) Anion Gap 16 Estim Creat Clear Calc 16.9 Estimated GFR 10 POC Glucose 337 H Random Glucose 335 H Fasting Glucose 333 H Calcium 8.2 L Phosphorus 3.9 Magnesium 2.2 Albumin 3.1 L Blood Type Antibody Screen Crossmatch Assessment and Plan (1) Acute hypernatremia: Status: Acute (2) 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 DKA resolved, hyperkalemia resolved, downgraded to medical floor 10/25/23. course copmlicated by acute hypoxia and fevers (not meeting SIRS) Right sided weakness, swallowing problem 2/2 Acute embolic stroke Noted on CT scan, confirmed by MRI to have multiple locations of acute infarcts Echo w bubble not showing VSD\ASD Neurology input appreciated, multiple acute strokes primarily in the left posterior cerebral territory and one in the right hemisphere as well suggesting embolic etiology started ASA and Plavix but now on hold for gi bleed SENIOR DESIGNER continue to follow, tolerating NDD3 PT\OT following hold off G-tube placement now as he is tolerating diet Syncopal episode 2/2 orthostatic vitals due to acute blood loss anemia due to presumed upper gi bleed iv protonix, transfused 2 units, holding antiplatelets, gi following, monitor cbc, will transfuse another unit today Elevated Trop Denies chest pain trending down EKG with no ST\T-wave changes to suggest ACS on tele NATALIA on CKD 5 complicated by acute metabolic acidosis,hyperkalemia, and anemia Had a session of hemodialysis, Nephrology following, nonoliguric Randolph removed , no retention Cr at 5.6 , BUN 70s Making fair amount of urine Continue flomax when taking po To remove CVC once we secure peripheral IV Nephro input appreciated, to follow up as outpatient in 1 week follow BMP Acute Hyperkalemia resolved repeat BMP Nephro following for need of urgent dialysis Acute hypernatremia resolved Follow BMP Hyperglycemia 2/2 Diabetes with DKA decrease Lantus to 25 SSI Basal bolus insulin, monitor Fever without sepsis and acute hypoxic respiratory failure 2/2 aspiration pneumonia Finished 10 days of IV Zosyn cultures negative DVT prophylaxis- mechanical due to gi bleed Full code reason for continued hospitalization: gi bleed Quality Stroke Does the patient have a stroke diagnosis?: No VTE Prior VTE?: No VTE Risk Level:: Medical - moderate - high VTE Device Contraindication: N/A - Device Ordered VTE Drug Contraindication: N/A - Med Ordered
[2023-11-07] MEDS: Labetalol HCL 100 MG/20 ML VIAL 10 MG IVPUSH (11:45)
--- NOTE | 2023-11-07 11:48 | MHC.CM.PN ---
EMR REVIEWED, PT WITH IMPROVING H&h HOWEVER HEMOGLOBIN 7.1, PLAN FOR TRNASFUSION, NO PLAN FOR DC AT THIS TIME, CM WILL CONT TO MONITOR DC NEEDS.
[2023-11-07 12:29] LABS: Glucose, Whole Blood 276 mg/dL (60-115)
--- NOTE | 2023-11-07 12:52 | MHC.SL.SWA ---
Speech Pathologist Impression: Risk of aspiration, oropharyngeal dysphagia Risk of Aspiration Due to: History of Pneumonia Poor PO Intake Dysphasia Diet Status: No changes at this time Liquid Consistency and Strategies for Safe Swallow: Liquid Intake Recommendation: Ringoes Thick Liquid Intake Strategies: Small Sips Solid Food Consistency: Dietary Recommendations: Chopped/Advanced (NDD3) Additional Modifications to Solid Foods: CONTINUE CHOPPED/ADVANCED SOLIDS and NECTAR-THICK LIQUIDS. Continue ASPIRATION PRECAUTIONS. Assist with TRAY SET-UP for meals. Family provided IDDSI Level 6 hand out and encouraged to bring compliant food from home given food sensitivities. Oral Medication Intake: Whole with Puree Please contact the pharmacy regarding appropriate crushable or liquid drug formulations that are available whenever modified delivery is recommended. Compensatory Strategies and Precautions to be Taken for Safe Swallow: Sitting Upright (90 deg) Double Swallow Small Bites and Sips Rate of Ingestion Change Supervision While Eating and Drinking for Safe Swallow: Total Assistance (1:1) Swallowing Recommended Treatments: Compens. Strategy Educat. Recommendation for Speech: Inpatient Speech Therapy Speech Therapy through [facility] Comment: The following exercises have been used in therapy and improvement(s) in swallowing function was/were seen today: Effortful Swallow eliminated Aspiration Clarissa Maneuver eliminated Aspiration PLAN: Intake Recommendations: Route: PO Diet Grade: IDDSI Levels: 6-Soft & Bite-Sized Liquid Consistencies: IDDSI Levels: 2-Mildly Thick Post-Study Functional Oral Intake Scale (FOIS): 5- Total oral intake of multiple consistencies requiring special preparation xxx Therapy Recommendations: Therapy will be continued The following compensatory strategies and/or therapeutic exercises will be part of the upcoming therapy/management plan: Ringoes-thick Liquid Bolus Volume Change Additional Swallow(s) per Bolus Effortful Swallow Prognosis for Improvement: The prognosis for the patient to meet nutritional needs by mouth is good based on degree of impairment, stimulability for treatment, level of motivation, support system. Patient's Personal Goals: Establish diet so he can be discharged. Ferruler Goals: ? The patient will tolerate the least restrictive diet with a safe/efficient swallow to maintain adequate nutrition and hydration. ? The patient will demonstrate improved swallowing function via repeat clinical evaluation, videoendoscopy/videofluoroscopy and/or patient self-rating scores. ? The patient and/or family will participate in further education for swallowing goals. Short Term Goals: ? Diet - The patient will tolerate a IDDSI Level 6 diet with nectar thick liquids without signs or symptoms of penetration/aspiration 90% of the time. - The patient will participate in therapeutic PO trials with the ORDNANCE ARTIFICER. ? Guidelines - The patient will comply with/recall the following guidelines/strategies 90% of the time with moderate cuing: Ringoes-thick Liquid, Bolus Volume Change, Effortful Swallow (used during PO intake), 90. ? Independent Home Exercise ? Structured Therapy - The patient will demonstrate 90% accuracy and require moderate cuing in structured swallowing therapy with the ORDNANCE ARTIFICER using the following exercises/therapy approaches and therapy assisted devices: Travis Maneuver, Shaker Head Lifts, Clarissa Maneuver, . ? Education - The patient, caregiver will verbalize/demonstrate understanding of the results of this evaluation, the above recommendations, and the swallowing guidelines. Frequency/Duration: Daily M-F Date Range for Service Req: Timeline to reassess: PRN Steam Boiler Fireman Clinican/Clinical Fellow: No Supervisory Statement: I have reviewed and agree with the student/clinical fellow's documentation: N/A Speech Language Pathologist: Ileana Reno M.A., [facility]ORDNANCE ARTIFICER
--- NOTE | 2023-11-07 13:11 | MHC.CLN ---
F/U PT TAKING BITES FROM MEAL TRAY PT'S DIET ADVANCED TO 2000DM CHOPPED WITH NT LIQ PER CORPORATE DEVELOPMENT ANALYST PT WITH VERY LITTLE INTAKE R/T BEHAVIORAL ISSUES RECOMMEND ADDING MAGIC TID TO INCREASE KCALS MAGIC CUP PROVIDES 870KCALS, 27G PROTEIN MONITOR PO INTAKE AND IF PO INTAKE <25% X [address] TO RE-START PPN RD CAN BE REACHED VIS TIGER CONNECT DURING OFF HOURS IF NEEDED
[2023-11-07 16:31] LABS: Glucose, Whole Blood 159 mg/dL (60-115)
[2023-11-07 19:54] LABS: Glucose, Whole Blood 142 mg/dL (60-115)
[2023-11-07] MEDS: Atorvastatin Calcium 80 MG TABLET PO (22:01)
[2023-11-08] VITALS: BP 178/77; PULSE 75; RESP 18; TEMP 36.8; O2SAT 98
[2023-11-08 00:05] LABS: Glucose, Whole Blood 128 mg/dL (60-115)
[2023-11-08 04:00] VITALS: BP 185/83; PULSE 68; RESP 18; TEMP 36.7; O2SAT 97
[2023-11-08 06:23] VITALS: BP 182/76
[2023-11-08] MEDS: hydrALAZINE HCl 20 MG/ML VIAL 5 MG IVPUSH (06:23)
[2023-11-08] MEDS: Pantoprazole Sodium 40 MG/10 ML VIAL IVPUSH (06:29)
[2023-11-08 07:12] VITALS: BP 196/88; PULSE 73; RESP 16; TEMP 36.7; O2SAT 98
[2023-11-08 07:31] LABS: Hematocrit 25.4 % (42.0-52.0); Hemoglobin 8.1 g/dl (14.0-18.0); Mean Corpuscular HGB Conc 31.9 g/dl (31.0-36.0); Mean Corpuscular Hemoglobin 29.5 pg (27.0-33.0); Mean Corpuscular Volume 92.4 fL (80.0-98.0); Mean Platelet Volume 9.6 fL (9.4-12.4); Platelet Count 200 X10*3/uL (160-400); Red Blood Count 2.75 X10*6/uL (4.60-5.80); Red Cell Distribution Width 16.8 % (11.0-16.0); White Blood Count 8.9 X10*3/uL (4.8-10.8)
[2023-11-08 07:49] LABS: Glucose, Whole Blood 143 mg/dL (60-115)
[2023-11-08 07:59] LABS: Albumin Level 3.2 g/dL (3.5-5.0); Anion Gap 15 (12-20); Blood Urea Nitrogen 76 mg/dL (9-16); Calcium 8.5 mg/dL (8.4-10.2); Carbon Dioxide 20 mmol/L (22-29); Chloride 112 mmol/L (96-108); Creatinine Clr Calc Pharmacy 17.7; Estimated Glomerular Filt Rate 11; Glucose Fasting 152 mg/dL (60-99); Glucose Random 153 mg/dL (60-115); Magnesium 2.2 mg/dL (1.6-2.6); Potassium 4.4 mmol/L (3.3-5.1); Sodium 143 mmol/L (135-145)
[2023-11-08] MEDS: amLODIPine Besylate 10 MG TABLET PO (10:02)
[2023-11-08] MEDS: hydrALAZINE HCl 50 MG TABLET PO (10:02)
[2023-11-08] MEDS: Insulin Glargine,Hum.rec.anlog 100 UNIT/ML 10 ML VIAL 25 UNIT SUBCUT (10:03)
[2023-11-08] MEDS: Lidocaine 4 % Patch ADH..PATCH 1 PATCH TRANSDERMA (10:03)
[2023-11-08 11:29] LABS: Glucose, Whole Blood 214 mg/dL (60-115)
[2023-11-08 12:00] VITALS: BP 188/85; PULSE 80; RESP 18; TEMP 36.6; O2SAT 97
--- NOTE | 2023-11-08 12:17 | P.F2F_ITS ---
Service Date Service Date: 11/08/23 Encounter Date of encounter: 11/08/23 Reasons for Services Signs and symptoms assessed: unsteady, dizzy while stnading, left sided weakness Reason for residential: diabetic teaching, medication management, medication treatment and teach disease management Reason for physical therapy: home safety and mobility, therapeutic exercises and gait/transfer training Reason for occupational therapy: home safety and mobility and gait/transfer training Reason for speech therapy: swallowing impairment Homebound: Leaving the home is medically contraindicated at this time without the asist of a device and/or another person due th the listed conditions above and below. Reason homebound: unsteady gait / fall risk and leg weakness Certification: Based on the above findings, I certify that this patient is confined to the home and needs intermittent residential care, physical therapy and/or speech therapy, or continues to need occupational therapy. The patient is under my care, and I have initiated the establishment of the plan of care. The patient will be followed by a physician who will periodically review the plan of care. Time Spent With Patient Time: Total time managing care of this patient today ____ minutes.
--- NOTE | 2023-11-08 12:20 | P.DS_ITS ---
DS: Providers Provider Date of Service: 11/08/23 Date of admission: 10/24/23 19:44 Primary care physician: Michael Garcia MD Consults: 10/25/23 02:38 Consult to Nephrology Routine Consulting Provider: [facility] Reason for consultation: NATALIA, DKA Has provider been notified: Yes 10/28/23 17:44 Consult to Neurology Stat Consulting Provider: [facility] Reason for consultation: acute cva 10/30/23 14:28 Consult to General Surgery Routine Consulting Provider: [facility] Reason for consultation: Need for G-tube placement, massive Stroke w dysphagia 10/31/23 09:36 Consult to Wound Care Routine Reason for consultation: skin tear right buttock 11/05/23 01:18 Consult to Cardiology Routine Consulting Provider: [facility] Reason for consultation: elevated troponin Has provider been notified: Yes 11/05/23 11:18 Consult to Psychiatry Routine Consulting Provider: Psych Covering Reason for consultation: Depression, anxiety post acute stroke for eval and mngmt 11/05/23 22:45 Consult to Gastroenterology Routine Consulting Provider: Sylvie Arriaza Reason for consultation: ?GI bleed DS: Diagnosis Discharge Diagnosis (1) Acute hypernatremia: Status: Acute (2) 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 (baseline creatinine 5),? hyperlipidemia, anemia, anxiety, depression, who presented to the emergency department with nausea and vomiting.? Patient reported? feeling weak, tired, nausea vomiting and diarrhea starting yesterday.? Reported? due to being sick did not take his insulin,? and his sugars have been high.? ?In the emergency department? patient was hypothermic,? tachypneic,? blood pressure stable. ? p laboratory data was significant for WBC 14.8, serum sodium 126, potassium 8.3, serum bicarb <5, BUN 86, creatinine 7.21, serum glucose 1228,? calcium 8.2, troponin 88.5, BNP 830, ? beta hydroxybutyrate 8.35 and lactic acid 5.8 Venous blood gas:? 6.85/13/175/2 ED COURSE:? Patient received 2 L bolus, 10 units IV push of insulin, calcium gluconate 2 g,? amp of bicarb,? albuterol 5 mg and started on insulin drip.? Patient will be admitted for? hemodynamically monitoring of diabetes ketoacidosis hospital course: Patient had a prolonged hospitalization, for full summary please see medical record. Patient was initially admitted to the intensive care unit for diabetic ketoacidosis complicated by acute kidney injury on CKD 5 with hyperkalemia requiring emergent hemodialysis. Was treated with insulin drip and hemodialysis DKA resolved, hyperkalemia resolved he was then downgraded to medical floor on 10/25/2023. Course was then complicated by acute hypoxia and fevers without sepsis. Was treated with course of IV Zosyn. Then incidentally noted to have dysphagia. Workup included CT of the neck to rule out mechanical obstruction which revealed acute to subacute embolic stroke. MRI then confirmed multiple locations of acute infarcts. Echo with bubble study did not show any septal defect. Was seen by Neurology who recommended dual antiplatelet and statin. however, course was then complicated by syncope due to acute blood loss anemia due to upper gi bleed. antiplatelets have been held, needed 3 units prbc, was seen by gi who felt patient too high risk for EGD at this time, hgb stabilized on ppi and will continue ppi po as outpatinet, should follow up with gi to determine when okay to restart antiplatelets for stroke secondary prevention. For patient's acute kidney injury on CKD 5 he received session of hemodialysis and then creatinine stabilized. He did not require further hemodialysis. He will continue with close follow-up with Nephrology. for hypertension was continued on amlodipine - increased to 10mg daily and hydralazine, lisinpirl discontinued. has not been well controlled, however, patient not interested in staying in hospital longer for better control, will follow up with nephro closely, he is aware he has ongoing high risk for recurrent CVA. he was also not interested in rehab placement despite high fall risk, will be discharged home with home services. Time Attestation Discharge Coordination Time (in mins): 45 Quality: Safe Use of Opioids Does Pt have an Active Cancer Diagnosis on the Problem List?: No Quality: Stroke Does the patient have a stroke diagnosis?: Yes Reason for No Anti-thrombotic at DC: Contraindicated Reason for No Anticoagulant at DC: Contraindicated Reason Not Initiating IV-Tpa: Contraindicated Reason for No Anti-thrombotic by Day Two: Contraindicated Reason for No Statin at DC: N/A - Med Ordered Physical Exam Vital Signs: Vital Signs: Last Vital Signs Temp 98 F 11/08/23 12:00 Pulse 80 11/08/23 12:00 Resp 18 11/08/23 12:00 BP 188/85 H 11/08/23 12:00 Pulse Ox 97 11/08/23 12:00 O2 Del Method Room Air 11/08/23 12:00 O2 Flow Rate 2 10/30/23 23:35 Oxygen Flow Rate 2 10/27/23 08:00 BMI result Body Mass Index 34.8 General: AO X 3, no acute distress, ill appearing Resp: CTA bilateral, no accessory muscles used CVS: S1,S2,RRR GI: soft, non tender, non distended Neuro: left hemiparesis Psych: appropriate affect, appropriate insight DS: Data Data Completed and Pending Labs on day of discharge: Laboratory Results - last 24 hr 11/05/23 11/07/23 11/07/23 23:53 07:00 12:19 WBC RBC Hgb Hct MCV MCH MCHC RDW Plt Count MPV Absolute Nucleated RBC Nucleated RBC % (auto) Sodium 144 Potassium 5.2 H Chloride 114 H Carbon Dioxide 19 L Anion Gap 16 BUN 84 H Creatinine 5.89 H* Estim Creat Clear Calc 16.9 Estimated GFR 10 POC Glucose 276 H Random Glucose TNP Fasting Glucose 333 H Calcium 8.2 L Phosphorus 3.9 Magnesium 2.2 Albumin 3.1 L Crossmatch See Detail 11/07/23 11/07/23 11/07/23 16:25 19:50 23:55 WBC RBC Hgb Hct MCV MCH MCHC RDW Plt Count MPV Absolute Nucleated RBC Nucleated RBC % (auto) Sodium Potassium Chloride Carbon Dioxide Anion Gap BUN Creatinine Estim Creat Clear Calc Estimated GFR POC Glucose 159 H 142 H 128 H Random Glucose Fasting Glucose Calcium Phosphorus Magnesium Albumin Crossmatch 11/08/23 11/08/23 11/08/23 07:13 07:18 11:24 WBC 8.9 RBC 2.75 L Hgb 8.1 L Hct 25.4 L MCV 92.4 MCH 29.5 MCHC 31.9 RDW 16.8 H Plt Count 200 MPV 9.6 Absolute Nucleated RBC 0.000 Nucleated RBC % (auto) 0.0 Sodium 143 Potassium 4.4 Chloride 112 H Carbon Dioxide 20 L Anion Gap 15 BUN 76 H Creatinine 5.61 H* Estim Creat Clear Calc 17.7 Estimated GFR 11 POC Glucose 143 H 214 H Random Glucose 153 H Fasting Glucose 152 H Calcium 8.5 Phosphorus Magnesium 2.2 Albumin 3.2 L Crossmatch Discharge Plan Discharge Anticipated Discharge Date/Time: 11/05/23 15:10 Patient Disposition: Home Health Service Discharge Diagnosis: dka, stroke, natalia on ckd v Referrals: [facility] [Outside] - 1 Day (PRISON, HOME OT/PT) Michael Garcia MD [Primary Care Provider] - 1 Week Stone Ulloa MD [Physician] - 1 Week Sylvie Arriaza MD [Physician] - 1 Week Discharge Medications: New omeprazole 40 mg capsule,delayed release(DR/EC) 40 mg PO BID Qty: 180 0RF (DME) walker Misc See Rx Instructions .Route Qty: 1 0RF Rx Instructions: As directed (DME) Shower Chair Misc See Rx Instructions .Route Qty: 1 0RF Rx Instructions: As directed Continued (DME) FreeStyle Lida 14 Day Sensor Kit See Rx Instructions .ROUTE .COMPLEX Qty: 2 11RF Dose Instruction: USE DIRECTED EVERY 2 WEEKS Rx Instructions: USE DIRECTED EVERY 2 WEEKS atorvastatin 80 mg tablet 80 mg PO DAILY 90 Days Qty: 90 1RF insulin lispro [Humalog KwikPen Insulin] 100 unit/mL insulin pen 8 unit subcut TID 30 Days Qty: 15 3RF Rx Instructions: + 2 units for bg over 200 insulin glargine [Lantus Solostar U-100 Insulin] 100 unit/mL (3 mL) insulin pen 26 unit subcut DAILY Qty: 15 3RF hydralazine 50 mg tablet 50 mg PO TID oxycodone 5 mg tablet 5 mg PO TID PRN (Reason: severe pain) sodium bicarbonate 650 mg tablet 650 mg PO BID Qty: 60 3RF cholecalciferol (vitamin D3) 25 mcg (1,000 unit) capsule 25 mcg PO DAILY Qty: 90 2RF Changed amlodipine 5 mg tablet 10 mg PO DAILY Qty: 180 5RF Discontinued lisinopril 20 mg tablet 40 mg PO DAILY Qty: 180 0RF Discharge Orders: Discharge Order (Routine); Ordered 11/08/23 Ordered By: Sal Barreto Diet: ndd3 solids, nectar liq Activity on Discharge: with walker Stand Alone Forms: Patient Portal Discharge page Print Language: [place]gu[place] Care Plan Goals: recovery Health Concerns: stroke, dka, dysphagia, natalia on ckd v, gi bleed Plan of Treatment: continue statin, pt, follow up nephro, SENIOR SOFTWARE MANAGER, modified diet, follow up gi fortiming of restarting antiplatelets Assessment: see above Patient Instructions: Diabetic Ketoacidosis (GEN)
--- NOTE | 2023-11-08 12:34 | MHC.CM.PN ---
Patient has been medically cleared for dc to home today, with services. A referral was made to [facility], who has been made aware of today's dc.
[2023-11-08] MEDS: cloNIDine HCL 0.1 MG TABLET PO (13:46)
[2023-11-11 11:22] LABS: Glucose, Whole Blood > 600 mg/dL (60-115)
== END 2023-11-08 14:45 | disposition home health service (06) | DRG 469 ==
LOC: HO.ED 19:35 → HO.EDOVER 19:54 → HO.ICU 20:53 → HO.IMC 10-25 14:37
PROVIDERS: Internal Medicine Hypertension Specialist; Internal Medicine Pulmonary Disease; Student in an Organized Health Care Education/Training Program; Admitting Provider Registered Nurse Community Health; Emergency Provider Emergency Medicine; PCP Internal Medicine; Visit Provider Internal Medicine
DX: N17.9 Acute kidney failure, unspecified (principal); J96.01 Acute respiratory failure with hypoxia; J69.0 Pneumonitis due to inhalation of food and vomit; I63.12 Cerebral infarction due to embolism of basilar artery; I63.432 Cerebral infarction due to embolism of left posterior cerebral artery; E10.10 Type 1 diabetes mellitus with ketoacidosis without coma; D62 Acute posthemorrhagic anemia; E10.40 Type 1 diabetes mellitus with diabetic neuropathy, unspecified; D63.1 Anemia in chronic kidney disease; I12.0 Hypertensive chronic kidney disease with stage 5 chronic kidney disease or end stage renal disease; G81.91 Hemiplegia, unspecified affecting right dominant side; E87.0 Hyperosmolality and hypernatremia; F39 Unspecified mood [affective] disorder; J45.20 Mild intermittent asthma, uncomplicated; I95.1 Orthostatic hypotension; E86.1 Hypovolemia; K92.2 Gastrointestinal hemorrhage, unspecified; E10.22 Type 1 diabetes mellitus with diabetic chronic kidney disease; R13.10 Dysphagia, unspecified; T38.3X6A Underdosing of insulin and oral hypoglycemic [antidiabetic] drugs, initial encounter; R68.0 Hypothermia, not associated with low environmental temperature; N18.5 Chronic kidney disease, stage 5; E87.5 Hyperkalemia; Z20.822 Contact with and (suspected) exposure to COVID-19; Z79.4 Long term (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 of insulin; Z79.899 Other long term (current) drug therapy
CPT/HCPCS: 0241U; 36415; 70490; 70551; 71045; 72141; 74176; 74230; 80048; 80061; 80076; 81001; 82010; 82040; 82803; 82947; 83036; 83525; 83605; 83690; 83735; 83880; 84100; 84436; 84443; 84478; 84484; 85025; 85027; 85610; 86704; 86706; 86850; 86900; 86901; 86923; 87040; 87340; 87493; 87507; 89055; 90999; 92526; 92610; 92611; 92950; 93005; 93306; 94640; 97110; 97116; 97163; 97167; 97530; 97535; 99285; C1758; C9113; J0131; J0360; J0613; J0885; J1200; J1644; J1650; J1920; J2060; J2250; J2270; J2359; J2405; J2543; J3370; J3475; J3480; P9016; P9047; Q5106; Q9957

== ENCOUNTER → 2023-10-24 18:30 | Outpatient (BNV) | payer OTHER, SELFPAY | PROVIDERS: Admitting Provider Registered Nurse Community Health; Emergency Provider Emergency Medicine; Visit Provider Internal Medicine Cardiovascular Disease | DX: R94.31 Abnormal electrocardiogram [ECG] [EKG] (principal) | CPT/HCPCS: 93010 ==

== ENCOUNTER 2023-10-24 19:44 | Outpatient (BNV) | payer OTHER, SELFPAY | END 2023-10-29 07:00 | PROVIDERS: Admitting Provider Registered Nurse Community Health; Emergency Provider Emergency Medicine; PCP Internal Medicine; Visit Provider Internal Medicine Cardiovascular Disease | DX: I35.1 Nonrheumatic aortic (valve) insufficiency (principal); I34.81 Nonrheumatic mitral (valve) annulus calcification | CPT/HCPCS: 93306 ==

== ENCOUNTER 2023-10-24 19:44 | Outpatient (BNV) | payer OTHER, SELFPAY | END 2023-11-04 12:15 | PROVIDERS: Admitting Provider Registered Nurse Community Health; Emergency Provider Emergency Medicine; PCP Internal Medicine; Visit Provider Physician Assistant Surgical | DX: R13.10 Dysphagia, unspecified (principal) | CPT/HCPCS: 74230 ==

== ENCOUNTER 2023-10-24 19:44 | Outpatient (BNV) | payer OTHER, SELFPAY | END 2023-10-27 11:49 | PROVIDERS: Admitting Provider Registered Nurse Community Health; Emergency Provider Emergency Medicine; PCP Internal Medicine; Visit Provider Physician Assistant Surgical | DX: R13.10 Dysphagia, unspecified (principal) | CPT/HCPCS: 99499 ==

== ENCOUNTER → 2023-10-24 19:44 | Outpatient (BNV) | payer OTHER, SELFPAY | PROVIDERS: Admitting Provider Registered Nurse Community Health; Emergency Provider Emergency Medicine; PCP Internal Medicine; Visit Provider Surgery | DX: R13.10 Dysphagia, unspecified (principal) | CPT/HCPCS: 99222; 99499 ==

== ENCOUNTER → 2023-10-24 19:44 | Outpatient (BNV) | payer OTHER, SELFPAY | PROVIDERS: Admitting Provider Registered Nurse Community Health; Emergency Provider Emergency Medicine; PCP Internal Medicine; Visit Provider Social Worker | DX: F39 Unspecified mood [affective] disorder (principal) | CPT/HCPCS: 99232 ==

== ENCOUNTER → 2023-10-24 19:44 | Outpatient (BNV) | payer OTHER, SELFPAY | PROVIDERS: Admitting Provider Registered Nurse Community Health; Emergency Provider Emergency Medicine; Visit Provider Internal Medicine | DX: E87.0 Hyperosmolality and hypernatremia (principal); I63.12 Cerebral infarction due to embolism of basilar artery; R13.10 Dysphagia, unspecified; N19 Unspecified kidney failure; E87.5 Hyperkalemia; N17.9 Acute kidney failure, unspecified; N18.5 Chronic kidney disease, stage 5 | CPT/HCPCS: 99232; 99233; 99239; 99499; G0180 ==

== ENCOUNTER → 2023-10-24 19:44 | Outpatient (BNV) | payer OTHER, SELFPAY | PROVIDERS: Admitting Provider Registered Nurse Community Health; Emergency Provider Emergency Medicine; Visit Provider Registered Nurse Community Health | DX: E10.10 Type 1 diabetes mellitus with ketoacidosis without coma (principal); E87.5 Hyperkalemia; E87.20 Acidosis, unspecified; N17.9 Acute kidney failure, unspecified; R11.2 Nausea with vomiting, unspecified; N18.9 Chronic kidney disease, unspecified | CPT/HCPCS: 36556; 99291; 99292 ==

== ENCOUNTER → 2023-10-24 19:44 | Outpatient (BNV) | payer OTHER, SELFPAY | PROVIDERS: Admitting Provider Registered Nurse Community Health; Emergency Provider Emergency Medicine; PCP Internal Medicine; Visit Provider Internal Medicine Hypertension Specialist | DX: N17.9 Acute kidney failure, unspecified (principal); N18.4 Chronic kidney disease, stage 4 (severe); E87.5 Hyperkalemia; E11.10 Type 2 diabetes mellitus with ketoacidosis without coma | CPT/HCPCS: 99223; 99232; 99499 ==

== ENCOUNTER → 2023-10-24 19:44 | Outpatient (BNV) | payer OTHER, SELFPAY | PROVIDERS: Admitting Provider Registered Nurse Community Health; Emergency Provider Emergency Medicine; Visit Provider Internal Medicine Pulmonary Disease | DX: E10.10 Type 1 diabetes mellitus with ketoacidosis without coma (principal); N18.5 Chronic kidney disease, stage 5; N17.9 Acute kidney failure, unspecified | CPT/HCPCS: 99233 ==

== ENCOUNTER → 2023-10-24 19:44 | Outpatient (BNV) | payer OTHER, SELFPAY | PROVIDERS: Admitting Provider Registered Nurse Community Health; Emergency Provider Emergency Medicine; PCP Internal Medicine; Visit Provider Psychiatry & Neurology Neurology | DX: I63.12 Cerebral infarction due to embolism of basilar artery (principal); N17.9 Acute kidney failure, unspecified; N18.5 Chronic kidney disease, stage 5; E87.5 Hyperkalemia | CPT/HCPCS: 99223 ==

== ENCOUNTER → 2023-10-24 19:44 | Outpatient (BNV) | payer OTHER, SELFPAY | PROVIDERS: Admitting Provider Registered Nurse Community Health; Emergency Provider Emergency Medicine; PCP Internal Medicine; Visit Provider Internal Medicine Cardiovascular Disease | DX: I95.1 Orthostatic hypotension (principal) | CPT/HCPCS: 99222 ==

== ENCOUNTER → 2023-10-24 19:44 | Outpatient (BNV) | payer OTHER, SELFPAY | PROVIDERS: Admitting Provider Registered Nurse Community Health; Emergency Provider Emergency Medicine; PCP Internal Medicine; Visit Provider Internal Medicine | DX: N18.9 Chronic kidney disease, unspecified (principal); D63.1 Anemia in chronic kidney disease; K92.2 Gastrointestinal hemorrhage, unspecified; N18.5 Chronic kidney disease, stage 5; I95.9 Hypotension, unspecified | CPT/HCPCS: 99222 ==

== ENCOUNTER 2023-11-10 15:17 | Emergency (ER) | payer OTHER, SELFPAY ==
[2023-11-10] VITALS (9 sets, daily range): BP systolic 116–180; BP diastolic 41–91; PULSE 82–98; RESP 14–26; TEMP 37.2–38.7; O2SAT 88–97; BMI 34.8
--- NOTE | ~2023-11-10 | XR_ITS ---
EXAMINATION: XR CHEST CLINICAL INFORMATION: Shortness of breath COMPARISON: 10/25/23 TECHNIQUE: Upright portable view of the chest was obtained. FINDINGS: Devices overlie the patient. Rotation to the right. No definite change in the mediastinum. No hilar mass. No alveolar edema. There are low lung volumes. Slightly increased markings in the right lower lung partially positional. No pneumothorax or significant pleural fluid XR/XR chest 1V IMPRESSION: Slightly increased markings right lower lung could represent atelectasis.
--- NOTE | 2023-11-10 15:59 | ECG_ITS ---
Test Reason : ? SEPSIS Blood Pressure : / mmHG Vent. Rate : 094 BPM Atrial Rate : 094 BPM P-R Int : 154 ms QRS Dur : 076 ms QT Int : 396 ms P-R-T Axes : 014 000 075 degrees QTc Int : 495 ms Normal sinus rhythm Prolonged QT Abnormal ECG When compared with ECG of 24-OCT-2023 18:31, QRS duration has decreased Nonspecific T wave abnormality now evident in Lateral leads Referred By: Marily Bailey Electronically Signed By:ALFREDO ALEXANDER
[2023-11-10 16:20] LABS: Glucose, Whole Blood 152 mg/dL (60-115)
--- NOTE | 2023-11-10 16:23 | ED_ITS ---
HPI - General Adult General Chief complaint: General Medical Stated complaint: cough, sob, fever, nausea, vomiting, pneumonia, Time Seen by Provider: 11/10/23 16:23 Source: EMS Mode of arrival: EMS History of Present Illness HPI narrative: Patient 53 years old with multiple comorbid condition does admitted on 10/24/2023 and discharged on 11/07 admitted for DKA complicated by NATALIA with hyperkalemia requiring hemodialysis also had an embolic stroke for last 48 hours patient has been feeling good last night he had early supper and had salmon , went to sleep night was uneventful in the morning around 09:00 o'clock patient had some strawberries not feeling good having some chills then he vomited x 3and became more weak on arrival patient had temperature of 101 degrees has mild pain in epigastric and right upper quadrant area no history or gallstones Related Data Home Medications ?Medication ?Instructions ?Recorded ?Confirmed hydralazine 50 mg tablet 50 mg PO TID 10/24/23 10/24/23 oxycodone 5 mg tablet 5 mg PO TID PRN severe pain 10/24/23 Previous Rx's ?Medication ?Instructions ?Recorded flash glucose sensor (FreeStyle #2 kits 10/17/21 Lida 14 Day Sensor kit) atorvastatin 80 mg tablet 80 mg PO DAILY 90 days #90 tabs 01/28/22 insulin lispro 100 unit/mL 8 unit (0.08 mL) subcut TID 30 03/04/23 subcutaneous pen (Humalog days #15 mL (U-100) Insulin) insulin glargine 100 unit/mL (3 26 unit (0.26 mL) subcut DAILY #15 09/09/23 mL) subcutaneous pen (Lantus mL Solostar U-100 Insulin) cholecalciferol (vitamin D3) 25 25 mcg PO DAILY #90 caps 10/02/23 mcg (1,000 unit) capsule sodium bicarbonate 650 mg tablet 650 mg PO BID #60 tabs 10/02/23 Shower Chair #1 ea 11/08/23 amlodipine 5 mg tablet 10 mg (2 x 5 mg) PO DAILY #180 tabs 11/08/23 omeprazole 40 mg capsule,delayed 40 mg PO BID #180 caps 11/08/23 release walker #1 ea 11/08/23 Allergies Allergy/AdvReac Type Severity Reaction Status Date / Time No Known Allergies Allergy Verified 11/10/23 15:55 Review of Systems 2 Review of Systems: Yes all other systems are reviewed and are negative FOR[facility]LY [facility] Past Medical History Medical History Metabolic acidosis Right foot ulcer Anxiety History of foot ulcer Obesity (BMI 30-39.9) Depression Rotator cuff arthropathy of left shoulder Vitamin D deficiency Allergic rhinitis Anemia Pure hypercholesterolemia Benign essential hypertension Diabetic polyneuropathy Type 2 diabetes mellitus with diabetic chronic kidney disease Erectile dysfunction Type 2 diabetes mellitus with hyperglycemia, with long-term current use of insulin Type 2 diabetes mellitus with diabetic polyneuropathy Type 2 diabetes mellitus with chronic kidney disease 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 LDL goal <70 Surgical History History of nasal surgery Family History Family History Father Lung cancer Mother Hypertension Coronary artery disease CVD (cardiovascular disease) TIA (transient ischemic attack) Sister Diabetes Maternal Uncle Diabetes Other Mental health problem Social History Social History Household Members: Unknown / Unable to assess Housing: Unknown / Unable to assess Do you presently have visiting nurse or other home services: No Alcohol intake: current Alcohol intake frequency: holidays/special occasions only Comment: sister in room Patient Tobacco Use Status: Never used Tobacco Smoked in Last 30 Days: No e-Cigarette/Vaping Use: Never Used Second Hand Smoke Exposure: Yes Use of substances other than those prescribed or required for medical reasons: No Advance Directives: No Advance Directives Information Provided: No Do you have a plan to hurt others: No Plan service: No Current occupational status: unemployed Cognitive needs: No Hearing needs: No Vision needs: No Physical Exam ED Vital Signs: Vital Signs - 24 hr 11/10/23 15:58 11/10/23 16:03 11/10/23 17:05 Temperature 100.8 F H 101.6 F H Pulse Rate 97 95 92 Respiratory Rate 24 H 26 H 24 H Blood Pressure 158/68 H 150/64 H 137/44 L Pulse Oximetry 88 L 95 96 Oxygen Delivery Method Room Air Nasal Cannula Nasal Cannula Oxygen Flow Rate 2 11/10/23 18:29 11/10/23 19:00 11/10/23 19:32 Temperature 100.6 F H 100.0 F 100.0 F Pulse Rate 88 82 86 Respiratory Rate 16 22 H 17 Blood Pressure 118/57 L 116/41 L 138/64 Pulse Oximetry 93 96 95 Oxygen Delivery Method Room Air Nasal Cannula Nasal Cannula Oxygen Flow Rate 2 2 11/10/23 19:40 11/10/23 20:03 11/10/23 20:39 Temperature 100.0 F 99.4 F 99.0 F Pulse Rate 85 82 82 Respiratory Rate 24 H 14 14 Blood Pressure 142/63 H 140/81 H Pulse Oximetry 96 97 96 Oxygen Delivery Method Nasal Cannula Nasal Cannula Room Air Oxygen Flow Rate 2 2 BMI result Body Mass Index 34.8 Appearance: Alert. Oriented X3. No acute distress. Eyes: PERRLA, No Nystagmus, pallor++ ENT: Pharynx normal. Oral Mucosa moist Neck: Normal inspection. Neck supple. CVS: Normal heart rate and rhythm. Pulses normal. Respiratory: No respiratory distress. Equal air entry bilateral, no wheezing/rales/rhonchi Abdomen: Soft, mild right upper quadrant tenderness no guarding or rebound tenderness Bowel sounds are present, no mass palpable, no CVA tenderness Skin: Skin warm and dry. Normal skin color. Normal skin turgor. Extremities: No lower extremity edema. No calf tenderness Neuro: Oriented X 3. No motor deficit. No sensory deficit.No cerebellar signs , cranial nerves II-XII intact Medications Administered Discontinued Medications Generic Name Dose Route Start Last Admin Trade Name Freq PRN Reason Stop Dose Admin Acetaminophen 650 mg 11/10/23 17:09 11/10/23 17:16 Acetaminophen 325 Mg Tablet PO 11/10/23 17:10 650 mg ONCE ONE Administration Sodium Chloride 1,000 mls @ 999 mls/hr 11/10/23 16:41 11/10/23 19:00 Ns IV 11/10/23 17:41 Infused .Q1H1M ONE Infusion Ceftriaxone Sodium 1 gm/ 50 mls @ 100 mls/hr 11/10/23 17:09 11/10/23 17:47 Sodium Chloride IV 11/10/23 17:38 Infused ONCE ONE Infusion Ondansetron HCl 4 mg 11/10/23 16:40 11/10/23 16:52 Ondansetron Hcl 4 Mg/2 Ml Vial IVPUSH 05/27/24 16:41 4 mg ONCE ONE Administration Medical Decision Making Medical Decision Making [facility] Narrative: Patient with low-grade fever etiology not very clear workup is essentially negative normal lactic acid level chest x-ray negative likely has vomited from salmon he ate last night no abdominal tenderness at this time patient took p.o. fluids and feeling much better will discharge patient home advised to take Tylenol Motrin for the fever blood cultures were done patient feeling much better Differential Diagnosis Differential Diagnoses: The differential diagnosis associated with the presentation includes UTI/aspiration pneumonia/metabolic derangement Admission/Observation Consideration of admission/observation: Escalation of care including admission/observation considered Lab Data [facility] Lab Attestation statement: I reviewed the patient's lab results. 11/10/23 16:23 11/10/23 16:23 Labs: Lab Results 11/10/23 11/10/23 11/10/23 Range/Units 16:17 16:23 16:35 WBC 8.7 (4.8-10.8) X10*3/uL RBC 2.79 L (4.60-5.80) X10*6/uL Hgb 8.2 L (14.0-18.0) g/dl Hct 25.2 L (42.0-52.0) % MCV 90.3 (80.0-98.0) fL MCH 29.4 (27.0-33.0) pg MCHC 32.5 (31.0-36.0) g/dl RDW 15.9 (11.0-16.0) % Plt Count 160 (160-400) X10*3/uL MPV 10.1 (9.4-12.4) fL Immature Gran % (Auto) 0.7 H (0.0-0.4) % Neut % (Auto) 85.7 H (45-73) % Lymph % (Auto) 4.9 L (20-40) % [place] % (Auto) 7.9 (2-11) % Eos % (Auto) 0.3 (0-4) % Baso % (Auto) 0.5 (0-2) % Lymph # (Auto) 0.4 L (1.2-4.9) X10*3/uL [place] # (Auto) 0.7 (0.1-1.2) X10*3/uL Eos # (Auto) 0.0 (0.0-0.4) X10*3/uL Baso # (Auto) 0.0 (0.0-0.2) X10*3/uL Abs Immat Gran (auto) 0.06 H (0.00-0.03) X10*3/uL Absolute Neuts (auto) 7.5 (2.0-8.3) x10*3/uL Absolute Nucleated RBC 0.000 (0.0-0.012) X10*3/uL Nucleated RBC % (auto) 0.0 (0.0-0.2) /100WBC VBG pH 7.44 H (7.32-7.43) VBG pCO2 29 mmHg VBG pO2 91 mmHg VBG HCO3 20 L (22-26) mmol/L VBG O2 Saturation 99.0 % VBG Base Excess -2.9 mmol/L Sodium 137 (135-145) mmol/L Potassium 4.7 (3.3-5.1) mmol/L Chloride 108 (96-108) mmol/L Carbon Dioxide 21 L (22-29) mmol/L Anion Gap 13 (12-20) BUN 50 H (9-16) mg/dL Creatinine 5.51 H* (0.5-1.4) mg/dL Estim Creat Clear Calc 18.1 Estimated GFR 11 POC Glucose 152 H (60-115) mg/dL Random Glucose 168 H (60-115) mg/dL Lactic Acid 0.9 (0.5-2.0) mmol/L Calcium 8.2 L (8.4-10.2) mg/dL Total Bilirubin 0.8 (0.0-1.0) mg/dL AST 19 (5-37) U/L ALT 13 (0-40) U/L Alkaline Phosphatase 68 (39-117) U/L B-Natriuretic Peptide 333 H (<100) pg/mL Total Protein 5.9 L (6.5-8.0) g/dL Albumin 3.2 L (3.5-5.0) g/dL Beta-Hydroxybutyrate 0.06 (0.02-0.27) mmol/L Urine Color Urine Appearance Urine pH (5.0-9.0) Ur Specific [place] (1.005-1.025) Urine Protein (Neg-Trace) mg/dL Urine Glucose (UA) (Negative) mg/dL Urine Ketones (Negative) mg/dL Urine Blood (Negative) Urine Nitrite (Negative) Ur Leukocyte Esterase (Negative) Urine RBC (0-2) /HPF Urine WBC (0-5) /HPF Ur Squamous Epith Cells (0-2) /HPF Urine Bacteria (None Seen) Hyaline Casts (0-2) /LPF Influenza Type A (PCR) (Negative) Influenza Type B (PCR) (Negative) RSV RNA Qual (PCR) (Negative) SARS-CoV-2 RNA (RT-PCR) (Negative) 11/10/23 11/10/23 Range/Units 17:24 18:31 WBC (4.8-10.8) X10*3/uL RBC (4.60-5.80) X10*6/uL Hgb (14.0-18.0) g/dl Hct (42.0-52.0) % MCV (80.0-98.0) fL MCH (27.0-33.0) pg MCHC (31.0-36.0) g/dl RDW (11.0-16.0) % Plt Count (160-400) X10*3/uL MPV (9.4-12.4) fL Immature Gran % (Auto) (0.0-0.4) % Neut % (Auto) (45-73) % Lymph % (Auto) (20-40) % [place] % (Auto) (2-11) % Eos % (Auto) (0-4) % Baso % (Auto) (0-2) % Lymph # (Auto) (1.2-4.9) X10*3/uL [place] # (Auto) (0.1-1.2) X10*3/uL Eos # (Auto) (0.0-0.4) X10*3/uL Baso # (Auto) (0.0-0.2) X10*3/uL Abs Immat Gran (auto) (0.00-0.03) X10*3/uL Absolute Neuts (auto) (2.0-8.3) x10*3/uL Absolute Nucleated RBC (0.0-0.012) X10*3/uL Nucleated RBC % (auto) (0.0-0.2) /100WBC VBG pH (7.32-7.43) VBG pCO2 mmHg VBG pO2 mmHg VBG HCO3 (22-26) mmol/L VBG O2 Saturation % VBG Base Excess mmol/L Sodium (135-145) mmol/L Potassium (3.3-5.1) mmol/L Chloride (96-108) mmol/L Carbon Dioxide (22-29) mmol/L Anion Gap (12-20) BUN (9-16) mg/dL Creatinine (0.5-1.4) mg/dL Estim Creat Clear Calc Estimated GFR POC Glucose (60-115) mg/dL Random Glucose (60-115) mg/dL Lactic Acid (0.5-2.0) mmol/L Calcium (8.4-10.2) mg/dL Total Bilirubin (0.0-1.0) mg/dL AST (5-37) U/L ALT (0-40) U/L Alkaline Phosphatase (39-117) U/L B-Natriuretic Peptide (<100) pg/mL Total Protein (6.5-8.0) g/dL Albumin (3.5-5.0) g/dL Beta-Hydroxybutyrate (0.02-0.27) mmol/L Urine Color Yellow Urine Appearance Clear Urine pH 8.0 (5.0-9.0) Ur Specific [place] 1.015 (1.005-1.025) Urine Protein 300 (3+) H (Neg-Trace) mg/dL Urine Glucose (UA) 100 H (Negative) mg/dL Urine Ketones Negative (Negative) mg/dL Urine Blood Negative (Negative) Urine Nitrite Negative (Negative) Ur Leukocyte Esterase Trace H (Negative) Urine RBC 0-2 (0-2) /HPF Urine WBC 6-10 H (0-5) /HPF Ur Squamous Epith Cells 0-2 (0-2) /HPF Urine Bacteria None Seen (None Seen) Hyaline Casts 0-2 (0-2) /LPF Influenza Type A (PCR) NEGATIVE (Negative) Influenza Type B (PCR) NEGATIVE (Negative) RSV RNA Qual (PCR) NEGATIVE (Negative) SARS-CoV-2 RNA (RT-PCR) NEGATIVE (Negative) Discharge Plan Discharge Clinical Impression: Fever, Vomiting Patient Disposition: Home, Self-Care Instructions: Fever in Adults (ED), Acute Nausea and Vomiting (ED) Additional Instructions: Drink plenty of fluids At this time unable to find any source of infection likely viral Tylenol for fever Report to the ER if abdominal pain/vomiting continues Prescriptions: No Action (DME) FreeStyle Lida 14 Day Sensor Kit See Rx Instructions .ROUTE .COMPLEX Qty: 2 11RF Dose Instruction: USE DIRECTED EVERY 2 WEEKS Rx Instructions: USE DIRECTED EVERY 2 WEEKS atorvastatin 80 mg tablet 80 mg PO DAILY 90 Days Qty: 90 1RF insulin lispro [Humalog KwikPen Insulin] 100 unit/mL insulin pen 8 unit subcut TID 30 Days Qty: 15 3RF Rx Instructions: + 2 units for bg over 200 insulin glargine [Lantus Solostar U-100 Insulin] 100 unit/mL (3 mL) insulin pen 26 unit subcut DAILY Qty: 15 3RF hydralazine 50 mg tablet 50 mg PO TID oxycodone 5 mg tablet 5 mg PO TID PRN (Reason: severe pain) omeprazole 40 mg capsule,delayed release(DR/EC) 40 mg PO BID Qty: 180 0RF amlodipine 5 mg tablet 10 mg PO DAILY Qty: 180 5RF (DME) walker Misc See Rx Instructions .Route Qty: 1 0RF Rx Instructions: As directed (DME) Shower Chair Misc See Rx Instructions .Route Qty: 1 0RF Rx Instructions: As directed sodium bicarbonate 650 mg tablet 650 mg PO BID Qty: 60 3RF cholecalciferol (vitamin D3) 25 mcg (1,000 unit) capsule 25 mcg PO DAILY Qty: 90 2RF Interventions: ED Discharge Assessment Last Done: 11/10/23 20:39 Discharge Date/Time: 11/10/23 20:40 Print Language: Nepali
[2023-11-10 16:32] LABS: MANUAL DIFF FLAG NO
[2023-11-10 16:42] LABS: Basophils Percent Auto 0.5 % (0-2); Eosinophils Percent Auto 0.3 % (0-4); Hematocrit 25.2 % (42.0-52.0); Hemoglobin 8.2 g/dl (14.0-18.0); Imm Gran Abs Auto 0.06 X10*3/uL (0.00-0.03); Imm Gran Pct Auto 0.7 % (0.0-0.4); Lymphocytes Absolute Auto 0.4 X10*3/uL (1.2-4.9); Lymphocytes Percent Auto 4.9 % (20-40); Mean Corpuscular HGB Conc 32.5 g/dl (31.0-36.0); Mean Corpuscular Hemoglobin 29.4 pg (27.0-33.0); Mean Corpuscular Volume 90.3 fL (80.0-98.0); Mean Platelet Volume 10.1 fL (9.4-12.4); Monocytes Absolute Auto 0.7 X10*3/uL (0.1-1.2); Monocytes Percent Auto 7.9 % (2-11); Neutrophils Absolute Auto 7.5 x10*3/uL (2.0-8.3); Neutrophils Percent Auto 85.7 % (45-73); Platelet Count 160 X10*3/uL (160-400); Red Blood Count 2.79 X10*6/uL (4.60-5.80); Red Cell Distribution Width 15.9 % (11.0-16.0); White Blood Count 8.7 X10*3/uL (4.8-10.8)
[2023-11-10 16:43] LABS: VBG Base Excess -2.9 mmol/L; VBG HCO3 20 mmol/L (22-26); VBG pCO2 29 mmHg; VBG pH 7.44 (7.32-7.43); VBG pO2 91 mmHg
[2023-11-10 16:50] LABS: Beta-Hydroxybutyrate 0.06 mmol/L (0.02-0.27)
[2023-11-10] MEDS: 0.9 % Sodium Chloride 1,000 ML 999 ML IV (16:52)
[2023-11-10] MEDS: ondansetron HCL 4 MG/2 ML VIAL IVPUSH (16:52)
[2023-11-10 16:54] LABS: Lactic Acid 0.9 mmol/L (0.5-2.0)
[2023-11-10 17:06] LABS: B Type Natriuretic Peptide 333 pg/mL (<100)
[2023-11-10] MEDS: Acetaminophen 325 MG TABLET 650 MG PO (17:16)
[2023-11-10] MEDS: cefTRIAXone sodium 1 GM in 0.9 % Sodium Chloride 50 ML IV (17:17)
[2023-11-10 17:19] LABS: Alanine Aminotransferase 13 U/L (0-40); Albumin Level 3.2 g/dL (3.5-5.0); Alkaline Phosphatase 68 U/L (39-117); Anion Gap 13 (12-20); Aspartate Amino Transferase 19 U/L (5-37); Bilirubin Total 0.8 mg/dL (0.0-1.0); Blood Urea Nitrogen 50 mg/dL (9-16); Calcium 8.2 mg/dL (8.4-10.2); Carbon Dioxide 21 mmol/L (22-29); Chloride 108 mmol/L (96-108); Creatinine Clr Calc Pharmacy 18.1; Estimated Glomerular Filt Rate 11; Glucose Random 168 mg/dL (60-115); Potassium 4.7 mmol/L (3.3-5.1); Sodium 137 mmol/L (135-145); Total Protein 5.9 g/dL (6.5-8.0)
--- NOTE | 2023-11-10 17:28 | PC.NURSE ---
iv abx hung per order, pt medicated for fever, nasal swab performed
[2023-11-10 18:12] LABS: Influenza A PCR NEGATIVE (Negative); Influenza B PCR NEGATIVE (Negative); Resp Syncy Virus RNA Qual PCR NEGATIVE (Negative); SARS COV2 PCR INHOUSE NEGATIVE (Negative)
[2023-11-10 18:16] LABS: Venous Blood Gas Refer to POC result
--- NOTE | 2023-11-10 18:30 | PC.NURSE ---
patient a&ox3,pt continues to be febrile- vitals otherwise stable, pt IVF continue to run slowly- pt reminded to keep arm straight for the infusion of them, urine previously obtained, pt currently denying pain/discomfort, family at bedside, call eugene within reach, will continue to monitor
[2023-11-10 18:38] LABS: Appearance Urine Clear; Color Urine Yellow; Glucose Urine UA 100 mg/dL (Negative); Leukocyte Esterase Urine Trace (Negative); Nitrite Urine Negative (Negative); Specific Gravity - Urine 1.015 (1.005-1.025); UMIC TRIGGER UACC YES; Urine Blood Negative (Negative); Urine Ketones Negative (Negative); Urine Protein 300 (3+) mg/dL (Neg-Trace)
[2023-11-10 18:49] LABS: Bacteria Urine None Seen (None Seen); Hyaline Casts Urine 0-2 /LPF (0-2); RBC Urine 0-2 /HPF (0-2); Squamous Epithelial Cell Urine 0-2 /HPF (0-2); UACC Culture Trigger YES
--- NOTE | 2023-11-10 19:33 | MHC.EDTECH ---
This tech took over care of patient at 1900,hourly rounds completed,vitals were completed by RN, Patient urinated 400MLS of yellow urine in urinal,call eugene in reach
--- NOTE | 2023-11-10 20:13 | PC.NURSE ---
Patient received water for PO trial, tolerated well, no c/o nausea/vomiting/diarrhea.
== END 2023-11-10 20:40 | disposition home or self-care (01) ==
PROVIDERS: Student in an Organized Health Care Education/Training Program; Emergency Provider Internal Medicine; PCP Internal Medicine
DX: R50.9 Fever, unspecified (principal); R11.2 Nausea with vomiting, unspecified; E11.22 Type 2 diabetes mellitus with diabetic chronic kidney disease; I12.9 Hypertensive chronic kidney disease with stage 1 through stage 4 chronic kidney disease, or unspecified chronic kidney disease; N18.9 Chronic kidney disease, unspecified
CPT/HCPCS: 0241U; 36415; 71045; 80053; 81001; 82010; 82803; 82947; 83605; 83880; 85025; 87040; 87086; 93005; 96361; 96374; 96375; 99284; 99285; J0696; J2405

== ENCOUNTER → 2023-11-10 15:59 | Outpatient (BNV) | payer OTHER, SELFPAY | PROVIDERS: Emergency Provider Internal Medicine; PCP Internal Medicine; Visit Provider Internal Medicine | DX: I45.81 Long QT syndrome (principal) | CPT/HCPCS: 93010 ==

== ENCOUNTER 2023-11-11 06:52 | Inpatient (IN) | payer OTHER, SELFPAY ==
[2023-11-11] VITALS (12 sets, daily range): BP systolic 137–154; BP diastolic 60–71; PULSE 70–90; RESP 16–23; TEMP 36.2–39.1; O2SAT 88–95; BMI 34.6; BMI 34.4
--- NOTE | ~2023-11-11 | CT_ITS ---
EXAMINATION: CT CHEST WITHOUT CONTRAST CLINICAL INFORMATION: Aspiration pneumonia with cough, fever and hypoxia COMPARISON: CT abdomen performed earlier today TECHNIQUE: Multidetector volumetric CT imaging of the chest was done. Axial MIP volume rendering provided. Sagittal and coronal reformatted images were obtained. This CT examination was performed using dose optimization techniques as appropriate, variously including the following: *Automated exposure control *Adjustment of mA and/or kV according to patient size (this includes techniques or standardized protocols for targeted exams where dose is matched to indication/reason for exam; i.e. extremities or head) *Use of iterative reconstruction technique DLP: 285 mGy-cm FINDINGS: LUNGS: There is patchy consolidation is seen involving both lower lobes, right slightly greater than left. Small amount of similar changes are present in the right middle lobe inferiorly adjacent to the major fissure. Is associated marked bronchial thickening. Many of the densities are in a bronchial/tree-in-bud distribution. MEDIASTINUM: Heart size upper limits of normal. The cardiac blood pool has decreased attenuation suggesting anemia. No mediastinal or hilar lymphadenopathy seen. CORONARY ARTERY CALCIFICATION: None visualized on this study. PLEURA: There is no pleural effusion. No pleural mass or thickening. AXILLA: No lymphadenopathy. UPPER ABDOMEN: Right upper pole renal cyst better seen on the CT abdomen earlier today. No additional imaging or follow-up is needed.. OSSEOUS STRUCTURES: Degenerative changes are seen in the spine. No bony destructive lesions CT/CT chest wo IV con IMPRESSION: Bilateral lower lobe and right middle lobe infiltrates with associated bronchial thickening. Findings are consistent with pneumonia in a distribution that would favor aspiration. Fleischner guidelines were followed.
--- NOTE | ~2023-11-11 | XR_ITS ---
EXAMINATION: XR CHEST CLINICAL INFORMATION: Hypoxia COMPARISON: Portable chest 11/10/2023, 10/25/2023 No focal consolidation, interstitial pulmonary edema or pneumothorax. TECHNIQUE: AP upright portable view of the chest was obtained. 8:13 AM FINDINGS: Devices overlie the patient. Lung volumes are low. No focal consolidation, interstitial pulmonary edema or pneumothorax. The cardiomediastinal silhouette is stable. No pleural effusions. XR/XR chest 1V IMPRESSION: No acute cardiopulmonary disease.
--- NOTE | ~2023-11-11 | CT_ITS ---
EXAMINATION: CT ABDOMEN AND PELVIS WITHOUT CONTRAST CLINICAL INFORMATION: Left lower quadrant pain with nausea and vomiting COMPARISON: CT abdomen pelvis 18 days ago on 10/24/2023 TECHNIQUE: Multidetector volumetric imaging was performed from the superior aspect of the liver through the pubic symphysis. Sagittal and coronal reformatted images were obtained on the technologist's workstation. This CT examination was performed using dose optimization techniques as appropriate, variously including the following: *Automated exposure control *Adjustment of mA and/or kV according to patient size (this includes techniques or standardized protocols for targeted exams where dose is matched to indication/reason for exam; i.e. extremities or head) *Use of iterative reconstruction technique DLP: 750 mGy-cm FINDINGS: LUNG BASES: Patchy groundglass infiltrates are present at the lung bases which appear increased when compared to prior. LIVER, GALLBLADDER, AND BILIARY TREE: The liver is normal in size, shape, and attenuation. No focal hepatic lesion or biliary ductal dilatation is present. The gallbladder is unremarkable with no evidence of radiopaque gallstones, gallbladder wall thickening, or obvious pericholecystic inflammatory changes. PANCREAS: Unremarkable. SPLEEN: Mild splenomegaly with the spleen measuring 13 cm in greatest dimension. ADRENAL GLANDS: Unremarkable. KIDNEYS AND URETERS: The kidneys are normal in size, shape, and attenuation. No hydronephrosis, hydroureter, or calculi seen. Multiple bilateral benign Bosniak class I renal cysts are noted which require no additional imaging or follow-up. No solid renal masses are seen. . BLADDER: There is symmetric bladder wall thickening. A Randolph catheter has been removed since the prior study. GASTROINTESTINAL TRACT: The small and large bowel are unremarkable. The appendix is unremarkable, filled with high density material, possibly contrast media. ABDOMINAL WALL: No significant hernia is appreciated. LYMPH NODES: Normal. VASCULAR: Calcific atherosclerotic changes are present in the aorta and iliofemoral vessels. There is no evidence of an abdominal aortic aneurysm. PELVIC VISCERA: Unremarkable. Previously seen free fluid around a loop of anterior sigmoid has resolved. OSSEOUS STRUCTURES: Unremarkable. CT/CT abdomen pelvis wo IV con IMPRESSION: 1. A cause for the patient's left lower quadrant pain, nausea and vomiting has not been found. 2. Incidental note made of increasing groundglass infiltrates at the lung bases, mild splenomegaly, symmetric bladder wall thickening and resolution of previously seen free fluid around a loop of sigmoid colon. Fleischner guidelines were followed.
--- NOTE | 2023-11-11 07:11 | ED_ITS ---
HPI - General Adult General Chief complaint: Nausea/Vomiting/Diarrhea Stated complaint: fever and hypoxia Time Seen by Provider: 11/11/23 06:56 Source: patient, EMS, RN notes reviewed and old records reviewed Mode of arrival: EMS History of Present Illness ED Provider: Angela Thomas PA-C HPI narrative: 53-year-old male with a past medical history of HTN, diabetes, neuropathy, CKD (baseline creatinine 5), HLD, anemia, anxiety, depression, recently discharged from our facility on 11/07 s/p DKA complicated by NATALIA requiring emergent hemodialysis and subacute embolic stroke started on antiplatelet therapy complicated by acute blood loss anemia, presenting to the ED via EMS complaining of fever, generalized fatigue/weakness, lethargy, abdominal pain, nausea, vomiting x yesterday. Patient was evaluated in our ED yesterday for similar symptoms essentially had negative workup and was discharged home. Patient is poor historian. Denies SOB, CP, diarrhea Related Data Home Medications ?Medication ?Instructions ?Recorded ?Confirmed hydralazine 50 mg tablet 50 mg PO TID 10/24/23 11/11/23 oxycodone 5 mg tablet 5 mg PO TID PRN severe pain 10/24/23 11/11/23 insulin lispro 100 unit/mL 8 unit subcut TIDAC 11/11/23 11/11/23 subcutaneous pen (Humalog KwikPen (U-100) Insulin) Previous Rx's ?Medication ?Instructions ?Recorded flash glucose sensor (FreeStyle #2 kits 10/17/21 Lida 14 Day Sensor kit) atorvastatin 80 mg tablet 80 mg PO DAILY 90 days #90 tabs 01/28/22 insulin glargine 100 unit/mL (3 26 unit (0.26 mL) subcut DAILY #15 09/09/23 mL) subcutaneous pen (Lantus mL Solostar U-100 Insulin) cholecalciferol (vitamin D3) 25 25 mcg PO DAILY #90 caps 10/02/23 mcg (1,000 unit) capsule sodium bicarbonate 650 mg tablet 650 mg PO BID #60 tabs 10/02/23 Shower Chair #1 ea 11/08/23 amlodipine 5 mg tablet 10 mg (2 x 5 mg) PO DAILY #180 tabs 11/08/23 omeprazole 40 mg capsule,delayed 40 mg PO BID #180 caps 11/08/23 release walker #1 ea 11/08/23 Allergies Allergy/AdvReac Type Severity Reaction Status Date / Time No Known Allergies Allergy Verified 11/11/23 07:08 Review of Systems 2 Review of Systems: Constitutional: + Fever, No Chills, + fatigue, + lethargy ENT/Mouth: No Ear Pain, No Nasal Congestion, No Sinus Pain, No Hoarseness, No sore throat, No Rhinorrhea, No Swallowing Difficulty Cardiovascular: No Chest Pain, No SOB Respiratory: + Cough, No Sputum, No Wheezing Gastrointestinal: + Nausea, + Vomiting, No Diarrhea, No Constipation, + Abdominal pain Genitourinary: No Dysuria, No Urinary Frequency, No Hematuria, No Urinary Incontinence/retention, No Urgency, No Flank Pain Musculoskeletal: No joint pain, No Myalgias, No Joint Swelling Skin: No Skin Lesions, No rash Neuro: + Weakness, No Numbness, No Paresthesias Yes all other systems are reviewed and are negative Constitutional: Constitutional: Reports as per [facility] Past Medical History Attestation statement: The following information was validated with the patient. Source: old records reviewed Medical History Metabolic acidosis Right foot ulcer Anxiety History of foot ulcer Obesity (BMI 30-39.9) Depression Rotator cuff arthropathy of left shoulder Vitamin D deficiency Allergic rhinitis Anemia Pure hypercholesterolemia Benign essential hypertension Diabetic polyneuropathy Type 2 diabetes mellitus with diabetic chronic kidney disease Erectile dysfunction Type 2 diabetes mellitus with hyperglycemia, with long-term current use of insulin Type 2 diabetes mellitus with diabetic polyneuropathy Type 2 diabetes mellitus with chronic kidney disease 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 LDL goal <70 Surgical History History of nasal surgery Family History Family History Father Lung cancer Mother Hypertension Coronary artery disease CVD (cardiovascular disease) TIA (transient ischemic attack) Sister Diabetes Maternal Uncle Diabetes Other Mental health problem Social History Social History Household Members: Unknown / Unable to assess Housing: Unknown / Unable to assess Do you presently have visiting nurse or other home services: No Alcohol intake: current Alcohol intake frequency: holidays/special occasions only Comment: sister in room Patient Tobacco Use Status: Never used Tobacco Smoked in Last 30 Days: No e-Cigarette/Vaping Use: Never Used Second Hand Smoke Exposure: Yes Use of substances other than those prescribed or required for medical reasons: No Advance Directives: No Advance Directives Information Provided: Yes Do you have a plan to hurt others: No Plan service: No Current occupational status: unemployed Cognitive needs: No Hearing needs: No Vision needs: No Physical Exam ED Vital Signs: Vital Signs - 24 hr 11/11/23 07:04 11/11/23 07:47 11/11/23 07:59 Temperature 102.3 F H Pulse Rate 90 88 85 Respiratory Rate 20 20 20 Blood Pressure 152/63 H 146/60 H 154/65 H Pulse Oximetry 88 L 94 94 Oxygen Delivery Method Room Air Nasal Cannula Nasal Cannula Oxygen Flow Rate 2 2 11/11/23 09:15 11/11/23 10:16 Temperature 100.2 F Pulse Rate 77 70 Respiratory Rate 18 16 Blood Pressure 140/63 H 137/64 Pulse Oximetry 95 94 Oxygen Delivery Method Nasal Cannula Nasal Cannula Oxygen Flow Rate 2 2 BMI result Body Mass Index 34.6 Const General: cooperative Orientation/consciousness: patient oriented x3 Limitations: no limitations HENMT Head: Yes normal to inspection and Yes atraumatic Ears: hearing grossly normal bilaterally General nose exam: Normal external nose present Face and sinus: Yes normal facial exam Eyes General: appearance normal, both eyes and all related structures EOM: EOMs intact bilaterally Neck Neck: Yes normal visual inspection and Yes no meningeal signs Resp Effort & Inspection: normal respiratory effort and no respiratory distress Auscultation: rhonchi throughout Cardio Rate: regular rate Heart sounds: S1 normal heart sound present and S2 normal heart sound present GI Other: Healing ecchymosis noted to lower abdomen Inspection: Yes normal to inspection Palpation (GI): Soft to palpation, Tenderness to palpation present (GI) in the LLQ, no guarding and not rigid General: Yes no CVA tenderness Back/Spine/Pelvis Back: no CVA tenderness Skin Rashes: no rashes Neuro General: patient oriented x3, tone normal and no meningeal signs Cranial nerves: Yes CN's II-XII intact bilaterally Extrem General: Yes normal to inspection Course Course Course Narrative: -829--no leukocytosis. H and H at patient's baseline. -chronic CKD, at patient's baseline. Troponin chronically elevated likely from CKD. BNP chronically elevated to 351 -UA not infected. COVID/flu/RSV negative -0832--POC dropping to 60s > will give dextrose 0946--XR chest 1V IMPRESSION: No acute cardiopulmonary disease. CT abdomen pelvis wo IV con IMPRESSION: 1. A cause for the patient's left lower quadrant pain, nausea and vomiting has not been found. 2. Incidental note made of increasing groundglass infiltrates at the lung bases, mild splenomegaly, symmetric bladder wall thickening and resolution of previously seen free fluid around a loop of sigmoid colon. Fleischner guidelines were followed. > plan to admit for further management Medications Administered Generic Name Dose Route Start Last Admin Trade Name Freq PRN Reason Stop Dose Admin Amlodipine Besylate 10 mg 11/11/23 11:45 11/11/23 12:08 Amlodipine Besylate 10 Mg Tablet PO 10 mg DAILY ROSS Administration Protocol Glucose 15 gm 11/11/23 11:25 11/11/23 13:15 Glucose Gel 15 Gm Gel..Gram. PO 15 gm Q15M PRN Administration per Hypoglycemia Standing Ord. Protocol Heparin Sodium (Porcine) 5,000 unit 11/11/23 10:30 11/11/23 11:42 Heparin Sodium,Porcine 5,000 Unit/Ml Vial SUBCUT 5,000 unit Q12H ROSS Administration Dextrose 250 mls @ 750 mls/hr 11/11/23 08:31 11/11/23 13:14 D10 IV 750 mls/hr Q15M PRN Administration per Hypoglycemia Standing Ord. Dextrose/Sodium Chloride 1,000 mls @ 100 mls/hr 11/11/23 11:45 11/11/23 12:06 D5ns IVCONT 100 mls/hr .Q10H ROSS Administration Insulin Human Lispro 0 unit 11/11/23 11:30 11/11/23 12:08 Insulin Lispro 100 Unit/Ml 3 Ml Vial SUBCUT Not Given QIDACHS [facility] Protocol Discontinued Medications Generic Name Dose Route Start Last Admin Trade Name Freq PRN Reason Stop Dose Admin Acetaminophen 975 mg 11/11/23 07:12 11/11/23 07:39 Acetaminophen 325 Mg Tablet PO 11/11/23 07:13 975 mg ONCE ONE Administration Cefepime HCl 2 gm/ Sodium 50 mls @ 100 mls/hr 11/11/23 07:16 11/11/23 08:43 Chloride IV 11/11/23 07:45 Infused ONCE ONE Infusion Lidocaine HCl 10 ml 11/11/23 07:28 11/11/23 07:39 Lidocaine Hcl 2 % Urojet 10 Ml Jel.Pf.Keith TOPICAL 11/11/23 07:29 10 ml ONCE ONE Administration Ondansetron HCl 4 mg 11/11/23 07:11 11/11/23 07:39 Ondansetron Hcl 4 Mg/2 Ml Vial IVPUSH 11/11/23 07:12 4 mg ONCE ONE Administration Pantoprazole Sodium 40 mg 11/11/23 08:36 11/11/23 08:47 Pantoprazole Sodium 40 Mg/10 Ml Vial IVPUSH 11/11/23 08:37 40 mg ONCE ONE Administration Medical Decision Making Medical Decision Making MDM Narrative: 53-year-old male with a past medical history of HTN, diabetes, neuropathy, CKD (baseline creatinine 5), HLD, anemia, anxiety, depression, recently discharged from our facility on 11/07 s/p DKA complicated by NATALIA requiring emergent hemodialysis and subacute embolic stroke started on antiplatelet therapy complicated by acute blood loss anemia, presenting to the ED via EMS complaining of fever, generalized fatigue/weakness, lethargy, abdominal pain, nausea, vomiting x yesterday. On exam febrile to 102.3 rectally, hypoxic 88% on RA >94% on 2L NC, coarse lung sounds/rhonchi throughout, abdomen soft with LLQ tenderness, actively vomiting during evaluation. Concern for diverticulitis vs aspiration pneumonia/pneumonitis vs metabolic/infectious etiologies vs UTI. Lower suspicion for ACS/PE or dissection. Lower suspicion for acute cholecystitis/appendicitis Plan: EKG, labs, UA, CXR, CT AP, empiric IV antibiotics, anticipated admission Please refer to course for remaining clinical decision making, interpretation of labs/imaging results, and discussions with consultants and/or family members. Differential Diagnosis Differential Diagnoses: The differential diagnosis associated with the presentation includes As above Admission/Observation Consideration of admission/observation: Escalation of care including admission/observation considered Consult Healthcare Provider Management of the patient was discussed with: Hospitalist Lab Data MDM Lab Attestation statement: I reviewed the patient's lab results. 11/11/23 07:26 11/11/23 07:26 Labs: Lab Results 05/28/24 05/28/24 05/28/24 Range/Units 07:23 07:26 07:38 WBC 9.4 (4.8-10.8) X10*3/uL RBC 2.89 L (4.60-5.80) X10*6/uL Hgb 8.6 L (14.0-18.0) g/dl Hct 26.6 L (42.0-52.0) % MCV 92.0 (80.0-98.0) fL MCH 29.8 (27.0-33.0) pg MCHC 32.3 (31.0-36.0) g/dl RDW 15.9 (11.0-16.0) % Plt Count 159 L (160-400) X10*3/uL MPV 11.1 (9.4-12.4) fL Immature Gran % (Auto) 0.6 H (0.0-0.4) % Neut % (Auto) 87.8 H (45-73) % Lymph % (Auto) 4.4 L (20-40) % [place] % (Auto) 6.4 (2-11) % Eos % (Auto) 0.3 (0-4) % Baso % (Auto) 0.5 (0-2) % Lymph # (Auto) 0.4 L (1.2-4.9) X10*3/uL [place] # (Auto) 0.6 (0.1-1.2) X10*3/uL Eos # (Auto) 0.0 (0.0-0.4) X10*3/uL Baso # (Auto) 0.1 (0.0-0.2) X10*3/uL Abs Immat Gran (auto) 0.06 H (0.00-0.03) X10*3/uL Absolute Neuts (auto) 8.2 (2.0-8.3) x10*3/uL Absolute Nucleated RBC 0.000 (0.0-0.012) X10*3/uL Nucleated RBC % (auto) 0.0 (0.0-0.2) /100WBC PT 13.5 H (11.1-13.3) SEC INR 1.1 (0.9-1.1) Sodium 139 (135-145) mmol/L Potassium 4.7 (3.3-5.1) mmol/L Chloride 109 H (96-108) mmol/L Carbon Dioxide 18 L (22-29) mmol/L Anion Gap 17 (12-20) BUN 49 H (9-16) mg/dL Creatinine 5.65 H* (0.5-1.4) mg/dL Estim Creat Clear Calc 17.0 Estimated GFR 11 POC Glucose 87 (60-115) mg/dL Random Glucose 89 (60-115) mg/dL Lactic Acid 1.1 (0.5-2.0) mmol/L Calcium 8.5 (8.4-10.2) mg/dL Magnesium 1.8 (1.6-2.6) mg/dL Total Bilirubin 0.6 (0.0-1.0) mg/dL Direct Bilirubin 0.2 (0.0-0.5) mg/dL AST 25 (5-37) U/L ALT 13 (0-40) U/L Alkaline Phosphatase 65 (39-117) U/L Troponin I High Sens 153.2 H* (<3.5-35.0) ng/L B-Natriuretic Peptide 351 H (<100) pg/mL Total Protein 6.5 (6.5-8.0) g/dL Albumin 3.4 L (3.5-5.0) g/dL Lipase 12 (8-78) U/L Urine Color Urine Appearance Urine pH (5.0-9.0) Ur Specific [place] (1.005-1.025) Urine Protein (Neg-Trace) mg/dL Urine Glucose (UA) (Negative) mg/dL Urine Ketones (Negative) mg/dL Urine Blood (Negative) Urine Nitrite (Negative) Ur Leukocyte Esterase (Negative) Urine RBC (0-2) /HPF Urine WBC (0-5) /HPF Ur Squamous Epith Cells (0-2) /HPF Urine Bacteria (None Seen) Hyaline Casts (0-2) /LPF Influenza Type A (PCR) NEGATIVE (Negative) Influenza Type B (PCR) NEGATIVE (Negative) RSV RNA Qual (PCR) NEGATIVE (Negative) SARS-CoV-2 RNA (RT-PCR) NEGATIVE (Negative) 11/11/23 11/11/23 11/11/23 Range/Units 07:49 08:30 09:25 WBC (4.8-10.8) X10*3/uL RBC (4.60-5.80) X10*6/uL Hgb (14.0-18.0) g/dl Hct (42.0-52.0) % MCV (80.0-98.0) fL MCH (27.0-33.0) pg MCHC (31.0-36.0) g/dl RDW (11.0-16.0) % Plt Count (160-400) X10*3/uL MPV (9.4-12.4) fL Immature Gran % (Auto) (0.0-0.4) % Neut % (Auto) (45-73) % Lymph % (Auto) (20-40) % [place] % (Auto) (2-11) % Eos % (Auto) (0-4) % Baso % (Auto) (0-2) % Lymph # (Auto) (1.2-4.9) X10*3/uL [place] # (Auto) (0.1-1.2) X10*3/uL Eos # (Auto) (0.0-0.4) X10*3/uL Baso # (Auto) (0.0-0.2) X10*3/uL Abs Immat Gran (auto) (0.00-0.03) X10*3/uL Absolute Neuts (auto) (2.0-8.3) x10*3/uL Absolute Nucleated RBC (0.0-0.012) X10*3/uL Nucleated RBC % (auto) (0.0-0.2) /100WBC PT (11.1-13.3) SEC INR (0.9-1.1) Sodium (135-145) mmol/L Potassium (3.3-5.1) mmol/L Chloride (96-108) mmol/L Carbon Dioxide (22-29) mmol/L Anion Gap (12-20) BUN (9-16) mg/dL Creatinine (0.5-1.4) mg/dL Estim Creat Clear Calc Estimated GFR POC Glucose 65 125 H (60-115) mg/dL Random Glucose (60-115) mg/dL Lactic Acid (0.5-2.0) mmol/L Calcium (8.4-10.2) mg/dL Magnesium (1.6-2.6) mg/dL Total Bilirubin (0.0-1.0) mg/dL Direct Bilirubin (0.0-0.5) mg/dL AST (5-37) U/L ALT (0-40) U/L Alkaline Phosphatase (39-117) U/L Troponin I High Sens (<3.5-35.0) ng/L B-Natriuretic Peptide (<100) pg/mL Total Protein (6.5-8.0) g/dL Albumin (3.5-5.0) g/dL Lipase (8-78) U/L Urine Color Yellow Urine Appearance Clear Urine pH 8.0 (5.0-9.0) Ur Specific [place] 1.015 (1.005-1.025) Urine Protein 300 (3+) H (Neg-Trace) mg/dL Urine Glucose (UA) Negative (Negative) mg/dL Urine Ketones Negative (Negative) mg/dL Urine Blood Negative (Negative) Urine Nitrite Negative (Negative) Ur Leukocyte Esterase Negative (Negative) Urine RBC 0-2 (0-2) /HPF Urine WBC 0-5 (0-5) /HPF Ur Squamous Epith Cells 0-2 (0-2) /HPF Urine Bacteria None Seen (None Seen) Hyaline Casts 0-2 (0-2) /LPF Influenza Type A (PCR) (Negative) Influenza Type B (PCR) (Negative) RSV RNA Qual (PCR) (Negative) SARS-CoV-2 RNA (RT-PCR) (Negative) Independent Interpretation I performed an independent interpretation of an: EKG, Plain X-Ray and CT Scan Radiology Impression Discussion of test interpretation with radiology: I have reviewed the radiologist's reading. Independent Historian Clinical information obtained from an independent historian. History obtained from or confirmed by: EMS External Record Review External record reviewed: Inpatient record, Office record, Outpatient record, Prior outpatient labs, Prior outpatient radiology, Primary care record and Outside ED record Tests considered The following testing was considered but not selected: As above Prescription Management I considered prescription management with: Pain Medication and Antibiotic Chronic Conditions Patient?s care impacted by: Diabetes Critical Care Time Critical Care Time Critical Care Time: Yes Total Critical Care Time: 60 Attestation: I have personally provided critical care time exclusive of time spent on separately billable procedures. Time includes review of lab data, radiology results, discussion with consultants, and monitoring for potential decompensation. Intervention performed as documented. Discharge Plan Discharge Clinical Impression: Aspiration pneumonia, Fever, Hypoxia Patient Disposition: Admitted As Inpatient
--- NOTE | 2023-11-11 07:11 | ECG_ITS ---
Test Reason : HYPOXIA Blood Pressure : / mmHG Vent. Rate : 085 BPM Atrial Rate : 085 BPM P-R Int : 158 ms QRS Dur : 078 ms QT Int : 410 ms P-R-T Axes : 012 011 074 degrees QTc Int : 487 ms Normal sinus rhythm Prolonged QT Abnormal ECG When compared with ECG of 10-NOV-2023 16:06, No significant change was found Referred By: Angela Thomas Electronically Signed By:ALFREDO ALEXANDER
[2023-11-11 07:33] LABS: MANUAL DIFF FLAG NO
[2023-11-11 07:35] LABS: Basophils Absolute Auto 0.1 X10*3/uL (0.0-0.2); Basophils Percent Auto 0.5 % (0-2); Eosinophils Percent Auto 0.3 % (0-4); Hematocrit 26.6 % (42.0-52.0); Hemoglobin 8.6 g/dl (14.0-18.0); Imm Gran Abs Auto 0.06 X10*3/uL (0.00-0.03); Imm Gran Pct Auto 0.6 % (0.0-0.4); Lymphocytes Absolute Auto 0.4 X10*3/uL (1.2-4.9); Lymphocytes Percent Auto 4.4 % (20-40); Mean Corpuscular HGB Conc 32.3 g/dl (31.0-36.0); Mean Corpuscular Hemoglobin 29.8 pg (27.0-33.0); Mean Platelet Volume 11.1 fL (9.4-12.4); Monocytes Absolute Auto 0.6 X10*3/uL (0.1-1.2); Monocytes Percent Auto 6.4 % (2-11); Neutrophils Absolute Auto 8.2 x10*3/uL (2.0-8.3); Neutrophils Percent Auto 87.8 % (45-73); Platelet Count 159 X10*3/uL (160-400); Red Blood Count 2.89 X10*6/uL (4.60-5.80); Red Cell Distribution Width 15.9 % (11.0-16.0); White Blood Count 9.4 X10*3/uL (4.8-10.8)
--- NOTE | 2023-11-11 07:35 | PC.NURSE ---
pt is alert but slightly drowsy, appears to be a poor historian, skin very warm to touch rectal temp 102.3, respirations even and unlabored, ls junky and pt also has a junky/wet cough, pt's lower abd covered in multiple new and old bruising, also has a bruise to the right upper chest area-per sister pt had a emergency dialysis performed but the cath was pulled prior to discharge home, pt denies pain at this time but did vomit once since his arrival to the ED, pt abd soft and non-tender, bowel sounds hypoactive in all 4 quadrants, per sister no bowel movements in the last 4 days ns on the monitor
[2023-11-11] MEDS: ondansetron HCL 4 MG/2 ML VIAL IVPUSH (07:39)
[2023-11-11] MEDS: Lidocaine HCl 2 % Urojet 10 ML JEL.PF.APP TOPICAL (07:39)
[2023-11-11] MEDS: Acetaminophen 325 MG TABLET 975 MG PO (07:39)
[2023-11-11 07:43] LABS: Glucose, Whole Blood 87 mg/dL (60-115)
[2023-11-11 07:44] LABS: Lactic Acid 1.1 mmol/L (0.5-2.0)
[2023-11-11 07:46] LABS: INTERNATIONAL NORM RATIO 1.1 (0.9-1.1); Prothrombin Time 13.5 SEC (11.1-13.3)
[2023-11-11] MEDS: cefEPime HCl 2 GM in 0.9 % Sodium Chloride 50 ML IV (07:51)
[2023-11-11 07:53] LABS: Alanine Aminotransferase 13 U/L (0-40); Albumin Level 3.4 g/dL (3.5-5.0); Alkaline Phosphatase 65 U/L (39-117); Anion Gap 17 (12-20); Aspartate Amino Transferase 25 U/L (5-37); Bilirubin Direct 0.2 mg/dL (0.0-0.5); Bilirubin Total 0.6 mg/dL (0.0-1.0); Blood Urea Nitrogen 49 mg/dL (9-16); Calcium 8.5 mg/dL (8.4-10.2); Carbon Dioxide 18 mmol/L (22-29); Chloride 109 mmol/L (96-108); Estimated Glomerular Filt Rate 11; Glucose Random 89 mg/dL (60-115); Lipase 12 U/L (8-78); Magnesium 1.8 mg/dL (1.6-2.6); Potassium 4.7 mmol/L (3.3-5.1); Sodium 139 mmol/L (135-145); Total Protein 6.5 g/dL (6.5-8.0)
[2023-11-11 07:54] LABS: B Type Natriuretic Peptide 351 pg/mL (<100)
[2023-11-11 08:02] LABS: Troponin-I High Sensitivity 153.2 ng/L (<3.5-35.0)
[2023-11-11 08:08] LABS: Appearance Urine Clear; Color Urine Yellow; Glucose Urine UA Negative (Negative); Leukocyte Esterase Urine Negative (Negative); Nitrite Urine Negative (Negative); Specific Gravity - Urine 1.015 (1.005-1.025); UMIC TRIGGER UACC YES; Urine Blood Negative (Negative); Urine Ketones Negative (Negative); Urine Protein 300 (3+) mg/dL (Neg-Trace)
[2023-11-11 08:11] LABS: Bacteria Urine None Seen (None Seen); Hyaline Casts Urine 0-2 /LPF (0-2); RBC Urine 0-2 /HPF (0-2); Squamous Epithelial Cell Urine 0-2 /HPF (0-2); WBC Urine 0-5 /HPF (0-5)
[2023-11-11 08:22] LABS: Influenza A PCR NEGATIVE (Negative); Influenza B PCR NEGATIVE (Negative); Resp Syncy Virus RNA Qual PCR NEGATIVE (Negative); SARS COV2 PCR INHOUSE NEGATIVE (Negative)
[2023-11-11 08:34] LABS: Glucose, Whole Blood 65 mg/dL (60-115)
[2023-11-11] MEDS: Dextrose 10 % 250 ML 750 ML IV ×2 (08:35→13:14)
[2023-11-11] MEDS: Pantoprazole Sodium 40 MG/10 ML VIAL IVPUSH (08:47)
[2023-11-11 09:28] LABS: Glucose, Whole Blood 125 mg/dL (60-115)
--- NOTE | 2023-11-11 10:45 | P.HPHOSP_ITS ---
History of Present Illness Date of Service: 11/11/23 Attending physician on admission: Alberto Patel Chief Complaint: cough, vomiting 53-year-old male with history of hypertension, insulin-dependent type 2 diabetes, diabetic polyneuropathy, CKD stage 5, hyperlipidemia, chronic normocytic anemia, mood disorder, history of embolic stroke no longer on blood thinners due to GI bleed presents to the ED earlier today complaining of fevers, fatigue/weakness, lethargy, occasionally productive cough, and vomiting ongoing for 1 day. Reports eating salmon prior to symptom onset which he felt may have been bad. Patient was recently admitted for prolonged hospitalization from 10/23- 11/07 for DKA and hyperkalemia requiring ICU admission for insulin drip which resolved. course was complicated by aspiration pneumonia treated wtih IV zosyn and embolic stroke started on DAPT/statin but developed GI bleed and DAPT was stopped and required multiple transfusions. He did also undergo single instance of emergent HD. On arrival, vital signs significant for hypoxia to 88% on room air placed on 2 L supplemental O2 now maintaining oximetry 94%. He was also febrile to 102.3.. No leukocytosis, stable normocytic anemia with h/h 8.6/26.6. Creat 5.65/BUN 49, lytes wnl. Initial trop 153.2, repeat 144.8. BNP 351. UA wiht 3+ protein, baseline, otherwise unremarkable. CXR negative. CT abd/pelvis negative for any acute intra-abdominal abnormality to explain vomiting and abdominal pain but does show incidentally noted increasing ground-glass infiltrates at the lung bases, mild splenomegaly, symmetric bladder wall thickening and resolution of previously seen free fluid around the loop of sigmoid colon. In the ED, given 2g cefepime and will be admitted for aspiration pneumonia with acute hypoxemic respiratory failure. Review of Systems 2 Review of Systems: Yes all other systems are reviewed and are negative [facility] Medical History Metabolic acidosis Right foot ulcer Anxiety History of foot ulcer Obesity (BMI 30-39.9) Depression Rotator cuff arthropathy of left shoulder Vitamin D deficiency Allergic rhinitis Anemia Pure hypercholesterolemia Benign essential hypertension Diabetic polyneuropathy Type 2 diabetes mellitus with diabetic chronic kidney disease Erectile dysfunction Type 2 diabetes mellitus with hyperglycemia, with long-term current use of insulin Type 2 diabetes mellitus with diabetic polyneuropathy Type 2 diabetes mellitus with chronic kidney disease 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 LDL goal <70 Family History Father Lung cancer Mother Hypertension Coronary artery disease CVD (cardiovascular disease) TIA (transient ischemic attack) Sister Diabetes Maternal Uncle Diabetes Other Mental health problem Surgical History History of nasal surgery Social History Household Members: Unknown / Unable to assess Housing: Unknown / Unable to assess Do you presently have visiting nurse or other home services: No Alcohol intake: current Alcohol intake frequency: holidays/special occasions only Comment: sister in room Patient Tobacco Use Status: Never used Tobacco Smoked in Last 30 Days: No e-Cigarette/Vaping Use: Never Used Second Hand Smoke Exposure: Yes Use of substances other than those prescribed or required for medical reasons: No Advance Directives: No Advance Directives Information Provided: Yes Do you have a plan to hurt others: No Plan service: No Current occupational status: unemployed Cognitive needs: No Hearing needs: No Vision needs: No Meds Allergies Allergy/AdvReac Type Severity Reaction Status Date / Time No Known Allergies Allergy Verified 11/11/23 07:08 Active Medications: Current Medications Dextrose (D10) 250 mls @ 750 mls/hr IV Q15M PRN PRN Reason: per Hypoglycemia Standing Ord. Last Infusion: 11/11/23 09:00 Dose: Infused Home Medications ?Medication ?Instructions ?Recorded ?Confirmed ?Last Taken ?Type hydralazine 50 mg tablet 50 mg PO TID 10/24/23 11/11/23 Unknown History oxycodone 5 mg tablet 5 mg PO TID PRN severe pain 10/24/23 11/11/23 Unknown History insulin lispro 100 unit/mL 8 unit subcut TIDAC 11/11/23 11/11/23 Unknown History subcutaneous pen (Humalog KwikPen (U-100) Insulin) Physical Exam 2 Vital Signs and Narrative: Vital Signs: Last Vital Signs Temp 100.2 F 11/11/23 10:16 Pulse 70 11/11/23 10:16 Resp 16 11/11/23 10:16 BP 137/64 11/11/23 10:16 Pulse Ox 94 11/11/23 10:16 O2 Del Method Nasal Cannula 11/11/23 10:16 O2 Flow Rate 2 11/11/23 10:16 BMI result Body Mass Index 34.6 Constitutional - Awake and Alert, No apparent distress Eyes - PERRLA, EOMI Cardiovascular - S1S2, RRR, No edema Respiratory - Normal lung expansion, Normal respiratory effort, No respiratory distress, bilateral low lobe crackles Gastrointestinal - NT / ND; +BS; No rebound or guarding Extremities - no calf tenderness bilaterally, no swelling Skin - Warm/Dry Neurological - Alert & oriented x3 Psychological - Appropriate affect Results Labs 11/11/23 07:26 11/11/23 07:26 Labs: Laboratory Results - last 24 hr 11/11/23 11/11/23 11/11/23 07:23 07:26 07:38 MCV 92.0 MCH 29.8 MCHC 32.3 RDW 15.9 Plt Count 159 L MPV 11.1 Immature Gran % (Auto) 0.6 H Neut % (Auto) 87.8 H Lymph % (Auto) 4.4 L [place] % (Auto) 6.4 Eos % (Auto) 0.3 Baso % (Auto) 0.5 Lymph # (Auto) 0.4 L [place] # (Auto) 0.6 Eos # (Auto) 0.0 Baso # (Auto) 0.1 Abs Immat Gran (auto) 0.06 H Absolute Neuts (auto) 8.2 Absolute Nucleated RBC 0.000 Nucleated RBC % (auto) 0.0 PT 13.5 H INR 1.1 Anion Gap 17 Estim Creat Clear Calc 17.0 Estimated GFR 11 POC Glucose 87 Random Glucose 89 Lactic Acid 1.1 Calcium 8.5 Magnesium 1.8 Total Bilirubin 0.6 Direct Bilirubin 0.2 AST 25 ALT 13 Alkaline Phosphatase 65 Troponin I High Sens 153.2 H* B-Natriuretic Peptide 351 H Total Protein 6.5 Albumin 3.4 L Lipase 12 Urine Color Urine Appearance Urine pH Ur Specific [place] Urine Protein Urine Glucose (UA) Urine Ketones Urine Blood Urine Nitrite Ur Leukocyte Esterase Urine RBC Urine WBC Ur Squamous Epith Cells Urine Bacteria Hyaline Casts Influenza Type A (PCR) NEGATIVE Influenza Type B (PCR) NEGATIVE RSV RNA Qual (PCR) NEGATIVE SARS-CoV-2 RNA (RT-PCR) NEGATIVE 11/11/23 11/11/23 11/11/23 07:49 08:30 09:25 MCV MCH MCHC RDW Plt Count MPV Immature Gran % (Auto) Neut % (Auto) Lymph % (Auto) [place] % (Auto) Eos % (Auto) Baso % (Auto) Lymph # (Auto) [place] # (Auto) Eos # (Auto) Baso # (Auto) Abs Immat Gran (auto) Absolute Neuts (auto) Absolute Nucleated RBC Nucleated RBC % (auto) PT INR Anion Gap Estim Creat Clear Calc Estimated GFR POC Glucose 65 125 H Random Glucose Lactic Acid Calcium Magnesium Total Bilirubin Direct Bilirubin AST ALT Alkaline Phosphatase Troponin I High Sens B-Natriuretic Peptide Total Protein Albumin Lipase Urine Color Yellow Urine Appearance Clear Urine pH 8.0 Ur Specific [place] 1.015 Urine Protein 300 (3+) H Urine Glucose (UA) Negative Urine Ketones Negative Urine Blood Negative Urine Nitrite Negative Ur Leukocyte Esterase Negative Urine RBC 0-2 Urine WBC 0-5 Ur Squamous Epith Cells 0-2 Urine Bacteria None Seen Hyaline Casts 0-2 Influenza Type A (PCR) Influenza Type B (PCR) RSV RNA Qual (PCR) SARS-CoV-2 RNA (RT-PCR) Imaging Radiologist's Impressions: Impressions Chest X-Ray 11/11/23 08:19 IMPRESSION: No acute cardiopulmonary disease. Abdomen/Pelvis CT 11/11/23 08:42 IMPRESSION: 1. A cause for the patient's left lower quadrant pain, nausea and vomiting has not been found. 2. Incidental note made of increasing groundglass infiltrates at the lung bases, mild splenomegaly, symmetric bladder wall thickening and resolution of previously seen free fluid around a loop of sigmoid colon. Fleischner guidelines were followed. Assessment and Plan (1) Hypoxia: Status: Acute (2) Aspiration pneumonia: Status: Acute Plan 53-year-old male with history of hypertension, insulin-dependent type 2 diabetes, diabetic polyneuropathy, CKD stage 5, hyperlipidemia, chronic normocytic anemia, mood disorder, history of embolic stroke no longer on blood thinners due to GI bleed admitted for aspiration pneumonia with acute hypoxemic respiratory failure #Aspiration pneumonia and acute hypoxemic respiratory failure -likely 2/2 to vomiting -renally dosed IV cefepime 2g daily (initiated 11/10) -duyen ct pending -Check RPP, strep pneumo ag, legionella ag, and sputum sulture -symptomatic management -npo for now pending apartment house manager evaluation -continue supplemental O2 per protocol, wean as tolerated -follow cbc/cultures. No sepsis #Acute vomiting- likely viral -CT abd/pelvis negative for acute abnormality -antiemetics prn #insulin dependent type 2 dm- without hyperglycemia -hold lantus for now as pt npo. give D5/NS @100 ml/hr -poc glucose, admelog on ss #HTN -bp reasonably controlled -continue amlodipine, hydralazine #Diabetic polyneuropathy -not on meds #recent emobolic stroke -continue holding dapt due to recent gi bleed -continue statin #CKD stage 5 -renal fx baseline -continue sodium bicarb -nephrology consult dvt prophylaxis- heparin full code pt requires inpt stay at least 2 midnights for management of aspiration pneumonia with acute hypoxia requiring iv abx, npo status pending apartment house manager eval and diet advancement, and supplemental o2 Quality Stroke Does the patient have a stroke diagnosis?: No VTE Prior VTE?: No VTE Risk Level:: Medical - moderate - high VTE Device Contraindication: Treatment Not Indicated VTE Drug Contraindication: N/A - Med Ordered
[2023-11-11 11:06] LABS: Troponin-I High Sensitivity 144.8 ng/L (<3.5-35.0)
--- NOTE | 2023-11-11 11:29 | PHA.MEDREC ---
Pharmacy Consult ? Medication Reconciliation Pharmacy has completed the medication reconciliation. Patient recently discharged on 11/08/23. Utilized discharge packet and claim history.
[2023-11-11] MEDS: Heparin Sodium,Porcine 5,000 UNIT/ML VIAL 5000 UNIT SUBCUT ×2 (11:42→23:46)
[2023-11-11 12:03] LABS: Glucose, Whole Blood 51 mg/dL (60-115)
[2023-11-11] MEDS: Dextrose 5 % and 0.9 % NaCl 1,000 ML 100 ML IVCONT ×2 (12:06→21:45)
[2023-11-11] MEDS: amLODIPine Besylate 10 MG TABLET PO (12:08)
[2023-11-11 13:13] LABS: Glucose, Whole Blood 57 mg/dL (60-115)
[2023-11-11] MEDS: Glucose Gel 15 GM GEL..GRAM. PO (13:15)
[2023-11-11 13:25] LABS: Adenovirus PCR Not Detected (Not Detect.); Bordetella parapertussis PCR Not Detected (Not Detect.); Bordetella pertussis PCR Not Detected (Not Detect.); Chlamydia pneumoniae PCR Not Detected (Not Detect.); Coronavirus 229E PCR Not Detected (Not Detect.); Coronavirus HKU1 PCR Not Detected (Not Detect.); Coronavirus NL63 PCR Not Detected (Not Detect.); Coronavirus OC43 PCR Not Detected (Not Detect.); Human metapneumovirus PCR Not Detected (Not Detect.); Influenza A PCR Not Detected (Not Detect.); Influenza B PCR Not Detected (Not Detect.); Mycoplasma pneumoniae PCR Not Detected (Not Detect.); Parainfluenza 1 PCR Not Detected (Not Detect.); Parainfluenza 2 PCR Not Detected (Not Detect.); Parainfluenza 3 PCR Detected (Not Detect.); Parainfluenza 4 PCR Not Detected (Not Detect.); RSV PCR Not Detected (Not Detect.); Rhino/Enterovirus PCR Not Detected (Not Detect.)
[2023-11-11 13:33] LABS: SARS-CoV-2 PCR Not Detected (Not Detect.)
[2023-11-11 14:03] LABS: Glucose, Whole Blood 142 mg/dL (60-115)
--- NOTE | 2023-11-11 15:29 | MHC.SLORD ---
Speech Language Pathology Order Status: Pt was sleep and RN requested he not be disturbed. DAILY SALES AUDIT CLERK recommended CHOPPED/ADVANCED SOLIDS (NDD3) and NECTAR-THICK LIQUIDS. Pt may be a good candidate for Free Water Protocol under DAILY SALES AUDIT CLERK supervision. DAILY SALES AUDIT CLERK will continue to follow.
[2023-11-11 15:54] LABS: Glucose, Whole Blood 124 mg/dL (60-115)
[2023-11-11] MEDS: hydrALAZINE HCl 50 MG TABLET PO ×2 (16:43→21:21)
[2023-11-11] MEDS: Omeprazole 40 MG CAPSULE.DR PO (16:43)
[2023-11-11 16:45] LABS: Glucose, Whole Blood 143 mg/dL (60-115)
[2023-11-11 19:20] LABS: Glucose, Whole Blood 213 mg/dL (60-115)
[2023-11-11] MEDS: Sodium Bicarbonate 650 MG TABLET PO (21:21)
[2023-11-11 21:36] LABS: Glucose, Whole Blood 243 mg/dL (60-115)
[2023-11-11] MEDS: Insulin Lispro 100 UNIT/ML 3 ML VIAL SUBCUT (21:44)
[2023-11-11 22:55] LABS: Glucose, Whole Blood 223 mg/dL (60-115)
[2023-11-11] MEDS: 0.9 % Sodium Chloride Flush 3 ML SYRINGE IVFLUSH (23:47)
[2023-11-12] VITALS (7 sets, daily range): BP systolic 133–168; BP diastolic 63–74; PULSE 76–93; RESP 18; TEMP 36–36.6; O2SAT 90–94
[2023-11-12 04:28] LABS: Glucose, Whole Blood 229 mg/dL (60-115)
[2023-11-12 05:36] LABS: MANUAL DIFF FLAG NO
[2023-11-12 05:43] LABS: Basophils Percent Auto 0.7 % (0-2); Eosinophils Absolute Auto 0.1 X10*3/uL (0.0-0.4); Eosinophils Percent Auto 1.9 % (0-4); Hematocrit 24.2 % (42.0-52.0); Hemoglobin 7.8 g/dl (14.0-18.0); Imm Gran Abs Auto 0.04 X10*3/uL (0.00-0.03); Imm Gran Pct Auto 0.7 % (0.0-0.4); Lymphocytes Absolute Auto 0.7 X10*3/uL (1.2-4.9); Lymphocytes Percent Auto 13.7 % (20-40); Mean Corpuscular HGB Conc 32.2 g/dl (31.0-36.0); Mean Corpuscular Hemoglobin 29.7 pg (27.0-33.0); Monocytes Absolute Auto 0.5 X10*3/uL (0.1-1.2); Monocytes Percent Auto 8.3 % (2-11); Neutrophils Percent Auto 74.7 % (45-73); Platelet Count 135 X10*3/uL (160-400); Red Blood Count 2.63 X10*6/uL (4.60-5.80); Red Cell Distribution Width 15.8 % (11.0-16.0); White Blood Count 5.4 X10*3/uL (4.8-10.8)
[2023-11-12 06:08] LABS: Anion Gap 15 (12-20); Blood Urea Nitrogen 46 mg/dL (9-16); Carbon Dioxide 16 mmol/L (22-29); Chloride 111 mmol/L (96-108); Creatinine Clr Calc Pharmacy 17.6; Estimated Glomerular Filt Rate 11; Glucose Random 269 mg/dL (60-115); Potassium 4.4 mmol/L (3.3-5.1); Sodium 138 mmol/L (135-145)
[2023-11-12] MEDS: Dextrose 5 % and 0.9 % NaCl 1,000 ML 100 ML IVCONT (06:36)
[2023-11-12] MEDS: cefEPime HCl 2 GM in 0.9 % Sodium Chloride 50 ML IV (08:35)
[2023-11-12] MEDS: 0.9 % Sodium Chloride Flush 3 ML SYRINGE IVFLUSH ×3 (08:44→21:03)
--- NOTE | 2023-11-12 10:02 | P.CONNP_ITS ---
History of Present Illness Reason for Consult Consult date: 11/13/23 Chief Complaint Chief complaint: aspiration pneumonia History of Present Illness Narrative: 53-year-old male with history of hypertension, insulin-dependent type 2 diabetes, diabetic polyneuropathy, CKD stage 5, hyperlipidemia, chronic normocytic anemia, mood disorder, history of embolic stroke no longer on blood thinners due to GI bleed presents to the ED earlier today complaining of fevers, fatigue/weakness, lethargy, occasionally productive cough, and vomiting ongoing for 1 day. Reports eating salmon prior to symptom onset which he felt may have been bad. Patient was recently admitted for prolonged hospitalization from 10/23- 11/07 for DKA and hyperkalemia requiring ICU admission for insulin drip which resolved. course was complicated by aspiration pneumonia treated wtih IV zosyn and embolic stroke started on DAPT/statin but developed GI bleed and DAPT was stopped and required multiple transfusions At present creatinine is at baseline. No hyperkalemia. Review of Systems Constitutional: Denies fever(s) and Denies weight loss Cardiovascular: Denies chest pain Respiratory: Denies cough and Denies hemoptysis Gastrointestinal: Denies abdominal pain, Denies diarrhea and Denies nausea Musculoskeletal: Denies back pain Denies focal weakness PMFSH Past Medical History Medical History Metabolic acidosis Right foot ulcer Anxiety History of foot ulcer Obesity (BMI 30-39.9) Depression Rotator cuff arthropathy of left shoulder Vitamin D deficiency Allergic rhinitis Anemia Pure hypercholesterolemia Benign essential hypertension Diabetic polyneuropathy Type 2 diabetes mellitus with diabetic chronic kidney disease Erectile dysfunction Type 2 diabetes mellitus with hyperglycemia, with long-term current use of insulin Type 2 diabetes mellitus with diabetic polyneuropathy Type 2 diabetes mellitus with chronic kidney disease 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 LDL goal <70 Family History Family History Father Lung cancer Mother Hypertension Coronary artery disease CVD (cardiovascular disease) TIA (transient ischemic attack) Sister Diabetes Maternal Uncle Diabetes Other Mental health problem Surgical History Surgical History History of nasal surgery Social History Social History Household Members: Family Housing: House Do you presently have visiting nurse or other home services: Yes Alcohol intake: current Alcohol intake frequency: holidays/special occasions only Comment: sister in room Patient Tobacco Use Status: Never used Tobacco e-Cigarette/Vaping Use: Never Used Second Hand Smoke Exposure: Yes service: No Current occupational status: unemployed Cognitive needs: No Hearing needs: No Vision needs: No Meds Allergies Allergy/AdvReac Type Severity Reaction Status Date / Time No Known Allergies Allergy Verified 11/11/23 07:08 Active Medications: Current Medications Acetaminophen (Acetaminophen 325 Mg Tablet) 650 mg PO Q6H PRN PRN Reason: Pain, Mild (Pain Scale 1-3) Amlodipine Besylate (Amlodipine Besylate 10 Mg Tablet) 10 mg PO DAILY [facility]; Protocol Last Admin: 11/11/23 12:08 Dose: 10 mg Atorvastatin Calcium (Atorvastatin Calcium 80 Mg Tablet) 80 mg PO DAILY ROSS Glucose (Glucose Gel 15 Gm Gel..Gram.) 15 gm PO Q15M PRN; Protocol PRN Reason: per Hypoglycemia Standing Ord. Guaifenesin (Guaifenesin 200 Mg/10 Ml 10 Ml Liquid) 10 ml PO Q6H PRN PRN Reason: Cough Hydralazine HCl (Hydralazine Hcl 50 Mg Tablet) 50 mg PO TID ROSS; Protocol Last Admin: 11/11/23 21:21 Dose: 50 mg Dextrose (D10) 250 mls @ 750 mls/hr IV Q15M PRN PRN Reason: per Hypoglycemia Standing Ord. Last Infusion: 11/11/23 14:15 Dose: Infused Cefepime HCl 2 gm/ Sodium (Chloride) 50 mls @ 100 mls/hr IV Q24H ROSS Last Infusion: 11/12/23 09:17 Dose: Infused Dextrose (D10) 250 mls @ 750 mls/hr IV Q15M PRN; Protocol PRN Reason: per Hypoglycemia Standing Ord. Insulin Human Lispro (Insulin Lispro 100 Unit/Ml 3 Ml Vial) 0 unit SUBCUT Q6H [facility]; Protocol Last Admin: 11/12/23 05:55 Dose: Not Given Magnesium Hydroxide (Milk Of Magnesia 30 Ml Oral.Susp) 30 ml PO DAILY PRN PRN Reason: Constipation Omeprazole (Omeprazole 40 Mg Capsule.Dr) 40 mg PO BID@0630,1630 [facility] Last Admin: 11/12/23 05:30 Dose: Not Given Ondansetron HCl (Ondansetron Hcl 4 Mg/2 Ml Vial) 4 mg IVPUSH Q8H PRN PRN Reason: Nausea and Vomiting Oxycodone HCl (Oxycodone Hcl Immed Release 5 Mg Tablet) 5 mg PO TID PRN PRN Reason: severe pain Sodium Bicarbonate (Sodium Bicarbonate 650 Mg Tablet) 650 mg PO BID [facility] Last Admin: 11/11/23 21:21 Dose: 650 mg Sodium Chloride (0.9 % Sodium Chloride Flush 3 Ml Syringe) 3 ml IVFLUSH QSHIFT [facility] Last Admin: 11/12/23 08:44 Dose: 3 ml Vitamin D (Cholecalciferol (Vitamin D3) 25 Mcg Tablet) 25 mcg PO DAILY [facility] Home Medications ?Medication ?Instructions ?Recorded ?Confirmed ?Last Taken ?Type hydralazine 50 mg tablet 50 mg PO TID 10/24/23 11/11/23 Unknown History oxycodone 5 mg tablet 5 mg PO TID PRN severe pain 10/24/23 11/11/23 Unknown History insulin lispro 100 unit/mL 8 unit subcut TIDAC 11/11/23 11/11/23 Unknown History subcutaneous pen (Humalog KwikPen (U-100) Insulin) Physical Exam Vital Signs: Last Vital Signs Temp 96.8 F 11/12/23 08:00 Pulse 93 11/12/23 08:00 Resp 18 11/12/23 08:00 BP 168/71 H 11/12/23 08:00 Pulse Ox 90 L 11/12/23 08:00 O2 Del Method Nasal Cannula 11/12/23 08:00 O2 Flow Rate 2.0 11/12/23 08:00 BMI result Body Mass Index 34.4 Awake. Comfortable. Neck is supple. Mucosa moist. Lungs bilateral scattered rhonchi. Heart S1-S2 heard no gallop. Abdomen soft. Extremities no edema. No involuntary movements. No myoclonus. Results Lab Results 11/12/23 05:25 11/12/23 05:25 Lab results: Chemistry 11/11/23 11/12/23 07:26 05:25 Sodium 139 138 Potassium 4.7 4.4 Carbon Dioxide 18 L 16 L BUN 49 H 46 H Creatinine 5.65 H* 5.44 H* Calcium 8.5 8.0 L Hematology 11/11/23 11/12/23 07:26 05:25 WBC 9.4 5.4 Hgb 8.6 L 7.8 L Plt Count 159 L 135 L Urinalysis 11/11/23 07:49 Urine Color Yellow Urine Appearance Clear Urine pH 8.0 Ur Specific [place] 1.015 Urine Protein 300 (3+) H Urine Glucose (UA) Negative Urine Ketones Negative Urine Blood Negative Urine Nitrite Negative Ur Leukocyte Esterase Negative Urine RBC 0-2 Urine WBC 0-5 Ur Squamous Epith Cells 0-2 Hyaline Casts 0-2 Assessment and Plan (1) Chronic kidney disease, stage V: Status: Acute Plan Renal function is at baseline. No overt signs or symptoms of uremia or fluid overload. No hyperkalemia. Hyperchloremic metabolic acidosis due to CKD Anemia Shall follow closely along with the team. If he develops uremic symptoms or develops hyperkalemia we might have to start him on renal replacement therapy. Add Epogen Concur with current medical management Procedures Date of Service Date of Service: 11/13/23
--- NOTE | 2023-11-12 10:13 | MHC.CM.PN ---
EMR REVIEWED, PT RECENT DC TO SISTERS HOME W/HVNA, CM MET W/PT WHO REPORTS THINGS WENT WELL AT HIS SISTERS HOWEVER PT DECLINES TO GIVE DETAILS AND ANSWER QUESTIONS DIRECTING CM TO HIS SISTER STACY, PT WAS EDUCATED ON AND COMPLETED A HCP NAMING HIS SISTER STACY Vazquez [phone] HIS HCA, NO ALTERNATE CHOSEN, COPY UPLOADED TO [facility] AND PLACED IN CHART. PT VERIFIES PCP IS MALINDA ROMERO. PT REPORTS HIS GOAL FOR DC IS TO RETURN TO HIS SISTER STACY'S HOME W/RESUMP OF HVNA WHEN MEDICALLY CLEARED.
[2023-11-12 10:40] LABS: Glucose, Whole Blood 309 mg/dL (60-115)
[2023-11-12] MEDS: amLODIPine Besylate 10 MG TABLET PO (11:13)
[2023-11-12] MEDS: Insulin Lispro 100 UNIT/ML 3 ML VIAL SUBCUT ×3 (11:13→21:03)
--- NOTE | 2023-11-12 14:19 | MHC.SL.SWA ---
Risk of Aspiration Due to: Poor PO Intake Dysphasia Diet Status: Upgrade from NPO Liquid Consistency and Strategies for Safe Swallow: Liquid Intake Recommendation: [place] Thick Liquid Intake Strategies: Small Sips Solid Food Consistency: Dietary Recommendations: Chopped/Advanced (NDD3) Oral Medication Intake: Whole with Puree Please contact the pharmacy regarding appropriate crushable or liquid drug formulations that are available whenever modified delivery is recommended. Compensatory Strategies and Precautions to be Taken for Safe Swallow: Sitting Upright (90 deg) Double Swallow Small Bites and Sips Rate of Ingestion Change Supervision While Eating and Drinking for Safe Swallow: Total Supervision (1:1) Swallowing Recommended Treatments: Compens. Strategy Educat. Recommendation for Speech: Outpatient Speech Therapy Inpatient Speech Therapy Comment: Pt seen during hospitalization last week and for inpatient MBSS on 11/04/23. Pt presented w/ kati aspiration on thin liquids and was recommended nectar thick liquids, chopped/advanced solids, and pills whole in puree. Recommend UPGRADE from NPO to diet consistent w/ MBSS recommendations: CHOPPED/ADVANCED solids (NDD3), NECTAR THICK liquids, and pills WHOLE in PUREE. Recommend FULL SUPERVISION to monitor toleration of diet. Recommend pt hold off on [place] Free Water Protocol (FFWP) at this time. Recommend pt continue w/ pharyngeal strengthening dysphagia exercises. Pt may benefit from repeat MBSS at later date. HORSE DOCTOR to continue to follow Director Of Collections Clinican/Clinical Fellow: No Supervisory Statement: I have reviewed and agree with the student/clinical fellow's documentation: N/A Speech Language Pathologist: Elida Garcia M.A., CCC-HORSE DOCTOR
[2023-11-12] MEDS: hydrALAZINE HCl 50 MG TABLET PO ×2 (14:26→21:04)
--- NOTE | 2023-11-12 15:07 | P.PNIM_ITS ---
Subjective Subjective Date of Service: 11/12/23 Interval History: Aspiration pneumonia and acute hypoxemic respiratory failure Review of Systems sob seems improving has cough no fevers Physical Exam 2 Vital Signs: Vital Signs: Last Vital Signs Temp 96.8 F 11/12/23 08:00 Pulse 93 11/12/23 08:00 Resp 18 11/12/23 08:00 BP 154/69 H 11/12/23 14:26 Pulse Ox 93 11/12/23 11:30 O2 Del Method Nasal Cannula 11/12/23 11:30 O2 Flow Rate 2 11/12/23 11:30 BMI result Body Mass Index 34.4 Appearance: Alert.? Oriented X3.? cvs: rrr, [id number] . res: air entry improving ,somewhat diminshed at bases. abd: no rebound or guarding ,nt, bs present. ext pulses present , no cyanosis . neuro: axo3 , nonfocal. Objective Data Active Medications Acetaminophen (Acetaminophen 325 Mg Tablet) 650 mg PO Q6H PRN PRN Reason: Pain, Mild (Pain Scale 1-3) Amlodipine Besylate (Amlodipine Besylate 10 Mg Tablet) 10 mg PO DAILY [facility]; Protocol Last Admin: 11/12/23 11:13 Dose: 10 mg Documented By: KUMAR Atorvastatin Calcium (Atorvastatin Calcium 80 Mg Tablet) 80 mg PO DAILY [facility] Last Admin: 11/12/23 08:30 Dose: Not Given Documented By: KUMAR Non-Admin Reason: Patient Refused Glucose (Glucose Gel 15 Gm Gel..Gram.) 15 gm PO Q15M PRN; Protocol PRN Reason: per Hypoglycemia Standing Ord. Guaifenesin (Guaifenesin 200 Mg/10 Ml 10 Ml Liquid) 10 ml PO Q6H PRN PRN Reason: Cough Hydralazine HCl (Hydralazine Hcl 50 Mg Tablet) 50 mg PO TID [facility]; Protocol Last Admin: 11/12/23 14:26 Dose: 50 mg Documented By: KUMAR Dextrose (D10) 250 mls @ 750 mls/hr IV Q15M PRN PRN Reason: per Hypoglycemia Standing Ord. Last Infusion: 11/11/23 14:15 Dose: Infused Documented By: ÁNGELA Cefepime HCl 2 gm/ Sodium (Chloride) 50 mls @ 100 mls/hr IV Q24H [facility] Last Infusion: 11/12/23 09:17 Dose: Infused Documented By: KUMAR Dextrose (D10) 250 mls @ 750 mls/hr IV Q15M PRN; Protocol PRN Reason: per Hypoglycemia Standing Ord. Insulin Human Lispro (Insulin Lispro 100 Unit/Ml 3 Ml Vial) 0 unit SUBCUT QIDACHS [facility]; Protocol Magnesium Hydroxide (Milk Of Magnesia 30 Ml Oral.Susp) 30 ml PO DAILY PRN PRN Reason: Constipation Omeprazole (Omeprazole 40 Mg Capsule.Dr) 40 mg PO BID@0630,1630 [facility] Last Admin: 11/12/23 05:30 Dose: Not Given Documented By: MARCI Non-Admin Reason: NPO Ondansetron HCl (Ondansetron Hcl 4 Mg/2 Ml Vial) 4 mg IVPUSH Q8H PRN PRN Reason: Nausea and Vomiting Oxycodone HCl (Oxycodone Hcl Immed Release 5 Mg Tablet) 5 mg PO TID PRN PRN Reason: severe pain Sodium Bicarbonate (Sodium Bicarbonate 650 Mg Tablet) 650 mg PO BID [facility] Last Admin: 11/12/23 08:30 Dose: Not Given Documented By: KUMAR Non-Admin Reason: Patient Refused Sodium Chloride (0.9 % Sodium Chloride Flush 3 Ml Syringe) 3 ml IVFLUSH QSHIFT [facility] Last Admin: 11/12/23 08:44 Dose: 3 ml Documented By: KUMAR Vitamin D (Cholecalciferol (Vitamin D3) 25 Mcg Tablet) 25 mcg PO DAILY [facility] Last Admin: 11/12/23 08:30 Dose: Not Given Documented By: KUMAR Non-Admin Reason: Patient Refused Labs 11/12/23 05:25 11/12/23 05:25 Labs: Laboratory Results - last 24 hr 11/11/23 11/11/23 11/11/23 15:47 16:42 19:15 MCV MCH MCHC RDW Plt Count MPV Immature Gran % (Auto) Neut % (Auto) Lymph % (Auto) [place] % (Auto) Eos % (Auto) Baso % (Auto) Lymph # (Auto) [place] # (Auto) Eos # (Auto) Baso # (Auto) Abs Immat Gran (auto) Absolute Neuts (auto) Absolute Nucleated RBC Nucleated RBC % (auto) Anion Gap Estim Creat Clear Calc Estimated GFR POC Glucose 124 H 143 H 213 H Random Glucose Calcium 11/11/23 11/11/23 11/12/23 21:31 22:49 04:24 MCV MCH MCHC RDW Plt Count MPV Immature Gran % (Auto) Neut % (Auto) Lymph % (Auto) [place] % (Auto) Eos % (Auto) Baso % (Auto) Lymph # (Auto) [place] # (Auto) Eos # (Auto) Baso # (Auto) Abs Immat Gran (auto) Absolute Neuts (auto) Absolute Nucleated RBC Nucleated RBC % (auto) Anion Gap Estim Creat Clear Calc Estimated GFR POC Glucose 243 H 223 H 229 H Random Glucose Calcium 11/12/23 11/12/23 05:25 10:37 MCV 92.0 MCH 29.7 MCHC 32.2 RDW 15.8 Plt Count 135 L MPV 11.0 Immature Gran % (Auto) 0.7 H Neut % (Auto) 74.7 H Lymph % (Auto) 13.7 L [place] % (Auto) 8.3 Eos % (Auto) 1.9 Baso % (Auto) 0.7 Lymph # (Auto) 0.7 L [place] # (Auto) 0.5 Eos # (Auto) 0.1 Baso # (Auto) 0.0 Abs Immat Gran (auto) 0.04 H Absolute Neuts (auto) 4.0 Absolute Nucleated RBC 0.000 Nucleated RBC % (auto) 0.0 Anion Gap 15 Estim Creat Clear Calc 17.6 Estimated GFR 11 POC Glucose 309 H Random Glucose 269 H Calcium 8.0 L Microbiology Microbiology Results: Microbiology 11/12/23 11:25 Gram Stain - Final Sputum - Expectorated 11/11/23 07:38 Blood Culture - Preliminary Blood - Venous No growth after 24 hours. 11/11/23 07:26 Blood Culture - Preliminary Blood - Venous No growth after 24 hours. Assessment and Plan (1) Hypoxia: Status: Acute (2) Aspiration pneumonia: Status: Acute Assessment and Plan: 53-year-old male with history of hypertension, insulin-dependent type 2 diabetes, diabetic polyneuropathy, CKD stage 5, hyperlipidemia, chronic normocytic anemia, mood disorder, history of embolic stroke no longer on blood thinners due to GI bleed admitted for aspiration pneumonia with acute hypoxemic respiratory failure acute hypoxemic respiratory failure possible sec to Aspiration pneumonia , parainfluenza 3 viral URI renally dosed IV cefepime 2g daily (initiated 11/10) chest ct :Bilateral lower lobe and right middle lobe infiltrates with associated bronchial thickening. strep pneumo ag, legionella ag, and sputum sulture seen by BATTERY CHARGER- diet advanced ,taper O2 per protocol, wean as tolerated incentive spriometry,chest physiotherapy ,antibiotics. Acute vomiting- likely viral -CT abd/pelvis negative for acute abnormality -antiemetics prn insulin dependent type 2 dm-with hyperglycemia Fingersticks improving Diet advanced poc glucose, admelog on ss,if needed will add lantus. HTN-bp reasonably controlled continue amlodipine, hydralazine Diabetic polyneuropathy -not on meds recent emobolic stroke-continue holding dapt due to recent gi bleed continue statin CKD stage 5 -renal fx baseline,continue sodium bicarb obesity-encouraged to lose weight, cutdown calories. Generalized weak: Added PT evaluation. dvt prophylaxis- heparin full code ongoing need for management of aspiration pneumonia with acute hypoxia requiring iv abx, npo status pending boiler plant operator eval and diet advancement, and supplemental o2 Quality Stroke Does the patient have a stroke diagnosis?: No VTE Prior VTE?: No VTE Risk Level:: Medical - moderate - high VTE Device Contraindication: Treatment Not Indicated VTE Drug Contraindication: N/A - Med Ordered
[2023-11-12 16:02] LABS: Glucose, Whole Blood 246 mg/dL (60-115)
[2023-11-12] MEDS: Omeprazole 40 MG CAPSULE.DR PO (16:40)
--- NOTE | 2023-11-12 19:00 | PC.NURSE ---
This RN assumed care at 1900. Pt resting in bed with no apparent distress, AOx3, denies pain at this time. Lung sounds clear but diminished. Some redness to buttock noted. Bruises to right hand/chest. Sequential's in place, no pitting edema noted to BLE at this moment. 3+ Bilateral pedal pulse located. Pt does not tolerate nectar thick well, but is compliant. Bowel sounds x4 no pain with palpation. #20 RAC/#20 LAC asymptomatic/patent. VSS, call eugene within reach.
[2023-11-12 20:32] LABS: Glucose, Whole Blood 235 mg/dL (60-115)
[2023-11-12] MEDS: Sodium Bicarbonate 650 MG TABLET PO (21:04)
[2023-11-13] VITALS (10 sets, daily range): BP systolic 147–166; BP diastolic 70–79; PULSE 68–96; RESP 17–18; TEMP 36–36.6; O2SAT 93–96
[2023-11-13] MEDS: Omeprazole 40 MG CAPSULE.DR PO ×2 (05:40→16:32)
[2023-11-13 07:46] LABS: Glucose, Whole Blood 373 mg/dL (60-115)
[2023-11-13] MEDS: Insulin Lispro 100 UNIT/ML 3 ML VIAL SUBCUT ×4 (08:37→20:56)
[2023-11-13] MEDS: Sodium Bicarbonate 650 MG TABLET PO ×4 (08:38→20:56)
[2023-11-13] MEDS: cefEPime HCl 2 GM in 0.9 % Sodium Chloride 50 ML IV (08:38)
[2023-11-13] MEDS: amLODIPine Besylate 10 MG TABLET PO (08:38)
[2023-11-13] MEDS: hydrALAZINE HCl 50 MG TABLET PO ×3 (08:38→20:55)
[2023-11-13] MEDS: 0.9 % Sodium Chloride Flush 3 ML SYRINGE IVFLUSH ×3 (08:38→20:56)
--- NOTE | 2023-11-13 10:58 | P.PNNP_ITS ---
Subjective Subjective Date of Service: 11/13/23 Interval history: Aspiration pneumonia and acute hypoxemic respiratory failure Physical Exam 2 Vital Signs: Vital Signs: Last Vital Signs Temp 97.1 F 11/13/23 07:46 Pulse 75 11/13/23 07:46 Resp 17 11/13/23 07:46 BP 164/79 H 11/13/23 08:38 Pulse Ox 94 11/13/23 08:51 O2 Del Method Nasal Cannula 11/13/23 08:51 O2 Flow Rate 1 11/13/23 08:51 BMI result Body Mass Index 34.4 Const: General: cooperative Orientation/consciousness: patient oriented x3 Limitations: no limitations HEENT: Head: Yes normal to inspection and Yes atraumatic Ears: hearing grossly normal bilaterally General nose exam: Normal external nose present Face and sinus: Yes normal facial exam Eyes: General: appearance normal, both eyes and all related structures EOM: EOMs intact bilaterally Neck: Neck: Yes normal visual inspection and Yes no meningeal signs Resp: Effort & Inspection: normal respiratory effort and no respiratory distress Auscultation: rhonchi throughout Cardio: Rate: regular rate Heart sounds: S1 normal heart sound present and S2 normal heart sound present GI: Other: Healing ecchymosis noted to lower abdomen Inspection: Yes normal to inspection Palpation (GI): Soft to palpation, Tenderness to palpation present (GI) in the LLQ, no guarding and not rigid : General: Yes no CVA tenderness Back/Spine/Pelvis: Back: no CVA tenderness Skin: Rashes: no rashes Neuro: General: patient oriented x3, tone normal and no meningeal signs C ranial nerves: Yes CN's II-XII intact bilaterally Extrem: General: Yes normal to inspection Objective Data Labs 11/12/23 05:25 11/12/23 05:25 Labs: Laboratory Results - last 24 hr 11/12/23 11/12/23 11/13/23 15:57 20:28 07:41 POC Glucose 246 H 235 H 373 H* Microbiology Microbiology Results: Microbiology 11/11/23 07:38 Blood - Venous Blood Culture - Preliminary No growth after 48 hours. 11/11/23 07:26 Blood - Venous Blood Culture - Preliminary No growth after 48 hours. 11/12/23 11:25 Sputum - Expectorated Gram Stain - Final 11/12/23 11:25 Sputum - Expectorated Sputum Culture - Preliminary Culture in progress. Procedures Date of Service Date of Service: 11/13/23 Assessment & Plan Assessment and plan (1) Chronic kidney disease, stage V: Status: Acute Plan Renal function is at baseline. No overt signs or symptoms of uremia or fluid overload. No hyperkalemia. Hyperchloremic metabolic acidosis due to CKD Anemia Shall follow closely along with the team. If he develops uremic symptoms or develops hyperkalemia we might have to start him on renal replacement therapy. s/p Epogen x1 dose 11/11 Concur with current medical management Time Spent With Patient Time: Total time managing care of this patient today ____ minutes. Progress Note: Quality Stroke Does the patient have a stroke diagnosis?: No
[2023-11-13 11:40] LABS: Glucose, Whole Blood 334 mg/dL (60-115)
--- NOTE | 2023-11-13 13:19 | HO.PM.IMPN ---
Subjective Subjective Date of Service: 11/13/23 Interval History: acute hypoxemic respiratory failure possible sec to Aspiration pneumonia , parainfluenza 3 viral URI Review of Systems sob seems improving has cough denies any other c/o. Physical Exam Vital Signs: Vital Signs: Last Vital Signs Temp 97.1 F 11/13/23 07:46 Pulse 75 11/13/23 07:46 Resp 17 11/13/23 07:46 BP 164/79 H 11/13/23 08:38 Pulse Ox 93 11/13/23 11:20 O2 Del Method Nasal Cannula 11/13/23 08:51 O2 Flow Rate 1 11/13/23 08:51 BMI result Body Mass Index 34.4 Appearance: Alert.? Oriented X3.? cvs: rrr, [id number] . res: air entry improving ,somewhat diminshed at bases. abd: no rebound or guarding ,nt, bs present. ext pulses present , no cyanosis . neuro: axo3 , nonfocal. Objective Data Active Medications Acetaminophen (Acetaminophen 325 Mg Tablet) 650 mg PO Q6H PRN PRN Reason: Pain, Mild (Pain Scale 1-3) Amlodipine Besylate (Amlodipine Besylate 10 Mg Tablet) 10 mg PO DAILY [facility]; Protocol Last Admin: 11/13/23 08:38 Dose: 10 mg Documented By: LUIZ Atorvastatin Calcium (Atorvastatin Calcium 80 Mg Tablet) 80 mg PO DAILY [facility] Last Admin: 11/13/23 08:32 Dose: Not Given Documented By: LUIZ Non-Admin Reason: Patient Refused Glucose (Glucose Gel 15 Gm Gel..Gram.) 15 gm PO Q15M PRN; Protocol PRN Reason: per Hypoglycemia Standing Ord. Guaifenesin (Guaifenesin 200 Mg/10 Ml 10 Ml Liquid) 10 ml PO Q6H PRN PRN Reason: Cough Hydralazine HCl (Hydralazine Hcl 50 Mg Tablet) 50 mg PO TID [facility]; Protocol Last Admin: 11/13/23 08:38 Dose: 50 mg Documented By: LUIZ Dextrose (D10) 250 mls @ 750 mls/hr IV Q15M PRN PRN Reason: per Hypoglycemia Standing Ord. Last Infusion: 11/11/23 14:15 Dose: Infused Documented By: ÁNGELA Cefepime HCl 2 gm/ Sodium (Chloride) 50 mls @ 100 mls/hr IV Q24H [facility] Last Infusion: 11/13/23 09:31 Dose: Infused Documented By: ANDREWEMA Dextrose (D10) 250 mls @ 750 mls/hr IV Q15M PRN; Protocol PRN Reason: per Hypoglycemia Standing Ord. Insulin Human Lispro (Insulin Lispro 100 Unit/Ml 3 Ml Vial) 0 unit SUBCUT QIDACHS [facility]; Protocol Last Admin: 11/13/23 11:59 Dose: 8 unit Documented By: ANDREWEMA Magnesium Hydroxide (Milk Of Magnesia 30 Ml Oral.Susp) 30 ml PO DAILY PRN PRN Reason: Constipation Omeprazole (Omeprazole 40 Mg Capsule.Dr) 40 mg PO BID@0630,1630 [facility] Last Admin: 11/13/23 05:40 Dose: 40 mg Documented By: NO Ondansetron HCl (Ondansetron Hcl 4 Mg/2 Ml Vial) 4 mg IVPUSH Q8H PRN PRN Reason: Nausea and Vomiting Oxycodone HCl (Oxycodone Hcl Immed Release 5 Mg Tablet) 5 mg PO TID PRN PRN Reason: severe pain Sodium Bicarbonate (Sodium Bicarbonate 650 Mg Tablet) 650 mg PO QID [facility] Last Admin: 11/13/23 11:59 Dose: 650 mg Documented By: ANDREWEMA Sodium Chloride (0.9 % Sodium Chloride Flush 3 Ml Syringe) 3 ml IVFLUSH QSHIFT [facility] Last Admin: 11/13/23 08:38 Dose: 3 ml Documented By: ANDREWEMA Vitamin D (Cholecalciferol (Vitamin D3) 25 Mcg Tablet) 25 mcg PO DAILY [facility] Last Admin: 11/13/23 08:32 Dose: Not Given Documented By: LUIZ Non-Admin Reason: Patient Refused Labs 11/12/23 05:25 11/12/23 05:25 Labs: Laboratory Results - last 24 hr 11/12/23 11/12/23 11/13/23 15:57 20:28 07:41 POC Glucose 246 H 235 H 373 H* 11/13/23 11:35 POC Glucose 334 H Microbiology Microbiology Results: Microbiology 11/11/23 07:38 Blood Culture - Preliminary Blood - Venous No growth after 48 hours. 11/11/23 07:26 Blood Culture - Preliminary Blood - Venous No growth after 48 hours. 11/12/23 11:25 Gram Stain - Final Sputum - Expectorated Sputum Culture - Preliminary Culture in progress. Assessment and Plan (1) Aspiration pneumonia: Status: Acute Assessment and Plan: 53-year-old male with history of hypertension, insulin-dependent type 2 diabetes, diabetic polyneuropathy, CKD stage 5, hyperlipidemia, chronic normocytic anemia, mood disorder, history of embolic stroke no longer on blood thinners due to GI bleed admitted for aspiration pneumonia with acute hypoxemic respiratory failure acute hypoxemic respiratory failure possible sec to Aspiration pneumonia , parainfluenza 3 viral URI renally dosed IV cefepime 2g daily (initiated 11/10) chest ct :Bilateral lower lobe and right middle lobe infiltrates with associated bronchial thickening. strep pneumo ag, legionella ag, and sputum sulture seen by JOINT FILLER- diet advanced ,taper O2 per protocol, wean as tolerated incentive spriometry,chest physiotherapy ,antibiotics. Acute vomiting- likely viral -CT abd/pelvis negative for acute abnormality -antiemetics prn insulin dependent type 2 dm-with hyperglycemia Fingersticks improving Diet advanced poc glucose, admelog on ss,if needed will add lantus. HTN-bp reasonably controlled continue amlodipine, hydralazine Diabetic polyneuropathy -not on meds recent emobolic stroke-continue holding dapt due to recent gi bleed continue statin CKD stage 5 -renal fx baseline,continue sodium bicarb obesity-encouraged to lose weight, cutdown calories. Generalized weak: Added PT evaluation. dvt prophylaxis- heparin full code ongoing need for management of aspiration pneumonia with acute hypoxia requiring iv abx, npo status pending clinical director eval and diet advancement, and supplemental o2. Quality Stroke Does the patient have a stroke diagnosis?: No VTE Prior VTE?: No VTE Risk Level:: Medical - moderate - high VTE Device Contraindication: Treatment Not Indicated VTE Drug Contraindication: N/A - Med Ordered
--- NOTE | 2023-11-13 14:45 | PM.PSYCN ---
History of Present Illness Date of Service: 11/13/2023 Chief Complaint: aspiration pneumonia Reason for Consult: depressed. Requesting physician: Alberto Patel Discussed with referring provider: Yes Sources of Information: patient interviewed and chart reviewed HPI Narrative: Patient is a 53 year old male with history of hypertension, insulin-dependent type 2 diabetes, diabetic polyneuropathy, CKD stage 5, hyperlipidemia, chronic normocytic anemia, mood disorder, history of embolic stroke no longer on blood thinners due to GI bleed admitted for aspiration pneumonia with acute hypoxemic respiratory failure. Psychiatry consult for: depression Patient's sister present for assessment. During assessment, pt presents alert, oriented, calm and cooperative; tearful at times. Pt stated, I feel sad. I just want to get better and go home. I've been back and forth for the last three weeks. I've been crying because of the situation I'm in. My girlfriend of three years also just broke up with me yesterday via text with no explanation . Pt denies any hx of psychiatric care; denies hx of substance abuse. Pt stated he has moved in with his sister who cares for him and no longer has an apartment. Pt reports he would be interested in talking to a therapist ; pt stated, when I'm with my friends, I'm good. But when I'm along, it would be nice to talk to someone and have a therapist. I don't think I'm at a point to take medications. I don't want any . Pt reports sleeping well and beginning to have an appetite . Pt denies SI/HI/VH/AH. Past Psychiatric History: denies hx of psychiatric care/psychiatric medications. denies any hx of substance abuse. denies SIB/SA. Medical Evaluation Reviewed: Yes Review of Systems Constitutional: Reports as per HPI Eyes: Reports as per HPI Reports as per HPI Cardiovascular: Reports as per HPI Respiratory: Reports as per HPI Gastrointestinal: Reports as per HPI Genitourinary: Reports as per HPI Musculoskeletal: Reports as per HPI Skin/Breast: Reports as per HPI Reports as per HPI Psychiatric: Reports as per HPI Endocrine: Reports as per HPI Hematologic/Lymphatic: Reports as per HPI Allergic/Immunologic: Reports as per HPI [facility] Medical History Metabolic acidosis Right foot ulcer Anxiety History of foot ulcer Obesity (BMI 30-39.9) Depression Rotator cuff arthropathy of left shoulder Vitamin D deficiency Allergic rhinitis Anemia Pure hypercholesterolemia Benign essential hypertension Diabetic polyneuropathy Type 2 diabetes mellitus with diabetic chronic kidney disease Erectile dysfunction Type 2 diabetes mellitus with hyperglycemia, with long-term current use of insulin Type 2 diabetes mellitus with diabetic polyneuropathy Type 2 diabetes mellitus with chronic kidney disease 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 LDL goal <70 Surgical History History of nasal surgery Family History: denies Social History: Lives with his sister, single, no children, unemployed. Substance History: denies Trauma History: denies Diagnostics Vital Signs (24Hr): Vital Signs - 24 hr 11/12/23 15:36 11/12/23 20:00 11/12/23 21:04 Temperature 97.6 F 97.8 F Pulse Rate 80 76 Respiratory Rate 18 18 Blood Pressure 133/63 148/70 H 148/70 H Pulse Oximetry 93 94 Oxygen Delivery Method Nasal Cannula Nasal Cannula Oxygen Flow Rate 2 2 11/13/23 03:10 11/13/23 07:46 11/13/23 08:38 Temperature 97.8 F 97.1 F Pulse Rate 96 75 Respiratory Rate 18 17 Blood Pressure 166/70 H 164/79 H 164/79 H Pulse Oximetry 94 96 Oxygen Delivery Method Nasal Cannula Nasal Cannula Oxygen Flow Rate 2 2.0 11/13/23 08:38 11/13/23 08:51 11/13/23 11:20 Temperature Pulse Rate Respiratory Rate Blood Pressure 164/79 H Pulse Oximetry 94 93 Oxygen Delivery Method Nasal Cannula Oxygen Flow Rate 1 BMI result Body Mass Index 34.4 Labs 11/12/23 05:25 11/12/23 05:25 Labs: Laboratory Results - last 48 hr 11/11/23 11/11/23 11/11/23 15:47 16:42 19:15 WBC RBC Hgb Hct MCV MCH MCHC RDW Plt Count MPV Immature Gran % (Auto) Neut % (Auto) Lymph % (Auto) [place] % (Auto) Eos % (Auto) Baso % (Auto) Lymph # (Auto) [place] # (Auto) Eos # (Auto) Baso # (Auto) Abs Immat Gran (auto) Absolute Neuts (auto) Absolute Nucleated RBC Nucleated RBC % (auto) Sodium Potassium Chloride Carbon Dioxide Anion Gap BUN Creatinine Estim Creat Clear Calc Estimated GFR POC Glucose 124 H 143 H 213 H Random Glucose Calcium 11/11/23 11/11/23 11/12/23 21:31 22:49 04:24 WBC RBC Hgb Hct MCV MCH MCHC RDW Plt Count MPV Immature Gran % (Auto) Neut % (Auto) Lymph % (Auto) [place] % (Auto) Eos % (Auto) Baso % (Auto) Lymph # (Auto) [place] # (Auto) Eos # (Auto) Baso # (Auto) Abs Immat Gran (auto) Absolute Neuts (auto) Absolute Nucleated RBC Nucleated RBC % (auto) Sodium Potassium Chloride Carbon Dioxide Anion Gap BUN Creatinine Estim Creat Clear Calc Estimated GFR POC Glucose 243 H 223 H 229 H Random Glucose Calcium 11/12/23 11/12/23 11/12/23 05:25 10:37 15:57 WBC 5.4 RBC 2.63 L Hgb 7.8 L Hct 24.2 L MCV 92.0 MCH 29.7 MCHC 32.2 RDW 15.8 Plt Count 135 L MPV 11.0 Immature Gran % (Auto) 0.7 H Neut % (Auto) 74.7 H Lymph % (Auto) 13.7 L [place] % (Auto) 8.3 Eos % (Auto) 1.9 Baso % (Auto) 0.7 Lymph # (Auto) 0.7 L [place] # (Auto) 0.5 Eos # (Auto) 0.1 Baso # (Auto) 0.0 Abs Immat Gran (auto) 0.04 H Absolute Neuts (auto) 4.0 Absolute Nucleated RBC 0.000 Nucleated RBC % (auto) 0.0 Sodium 138 Potassium 4.4 Chloride 111 H Carbon Dioxide 16 L Anion Gap 15 BUN 46 H Creatinine 5.44 H* Estim Creat Clear Calc 17.6 Estimated GFR 11 POC Glucose 309 H 246 H Random Glucose 269 H Calcium 8.0 L 11/12/23 11/13/23 11/13/23 20:28 07:41 11:35 WBC RBC Hgb Hct MCV MCH MCHC RDW Plt Count MPV Immature Gran % (Auto) Neut % (Auto) Lymph % (Auto) [place] % (Auto) Eos % (Auto) Baso % (Auto) Lymph # (Auto) [place] # (Auto) Eos # (Auto) Baso # (Auto) Abs Immat Gran (auto) Absolute Neuts (auto) Absolute Nucleated RBC Nucleated RBC % (auto) Sodium Potassium Chloride Carbon Dioxide Anion Gap BUN Creatinine Estim Creat Clear Calc Estimated GFR POC Glucose 235 H 373 H* 334 H Random Glucose Calcium Imaging Radiology Impressions: ITS Impressions Chest X-Ray 11/11/23 08:19 IMPRESSION: No acute cardiopulmonary disease. Abdomen/Pelvis CT 11/11/23 08:42 IMPRESSION: 1. A cause for the patient's left lower quadrant pain, nausea and vomiting has not been found. 2. Incidental note made of increasing groundglass infiltrates at the lung bases, mild splenomegaly, symmetric bladder wall thickening and resolution of previously seen free fluid around a loop of sigmoid colon. Fleischner guidelines were followed. Chest CT 11/11/23 11:34 IMPRESSION: Bilateral lower lobe and right middle lobe infiltrates with associated bronchial thickening. Findings are consistent with pneumonia in a distribution that would favor aspiration. Fleischner guidelines were followed. Mental Status Exam Mental Status Exam Narrative: Pt is alert and oriented; behavior is cooperative and calm, tearful at times; dressed in hospital attire; mood is described as sad ; eye contact appropriate; Speech is normal rate, volume and prosody and not pressured; thought process is organized and goal directed; Thought content is on tx; otherwise pertinent to relevant topics and without any delusional content, paranoid ideations or grandiosity; denies SI/HI/VH/AH. Medications Medications Current Medications Acetaminophen (Acetaminophen 325 Mg Tablet) 650 mg PO Q6H PRN PRN Reason: Pain, Mild (Pain Scale 1-3) Amlodipine Besylate (Amlodipine Besylate 10 Mg Tablet) 10 mg PO DAILY [facility]; Protocol Last Admin: 11/13/23 08:38 Dose: 10 mg Atorvastatin Calcium (Atorvastatin Calcium 80 Mg Tablet) 80 mg PO DAILY [facility] Last Admin: 11/13/23 08:32 Dose: Not Given Glucose (Glucose Gel 15 Gm Gel..Gram.) 15 gm PO Q15M PRN; Protocol PRN Reason: per Hypoglycemia Standing Ord. Guaifenesin (Guaifenesin 200 Mg/10 Ml 10 Ml Liquid) 10 ml PO Q6H PRN PRN Reason: Cough Hydralazine HCl (Hydralazine Hcl 50 Mg Tablet) 50 mg PO TID [facility]; Protocol Last Admin: 11/13/23 08:38 Dose: 50 mg Dextrose (D10) 250 mls @ 750 mls/hr IV Q15M PRN PRN Reason: per Hypoglycemia Standing Ord. Last Infusion: 11/11/23 14:15 Dose: Infused Dextrose (D10) 250 mls @ 750 mls/hr IV Q15M PRN; Protocol PRN Reason: per Hypoglycemia Standing Ord. Insulin Glargine (Insulin Glargine,Hum.Rec.Anlog 100 Unit/Ml 10 Ml Vial) 20 unit SUBCUT DAILY [facility] Insulin Human Lispro (Insulin Lispro 100 Unit/Ml 3 Ml Vial) 0 unit SUBCUT QIDACHS [facility]; Protocol Last Admin: 11/13/23 11:59 Dose: 8 unit Magnesium Hydroxide (Milk Of Magnesia 30 Ml Oral.Susp) 30 ml PO DAILY PRN PRN Reason: Constipation Omeprazole (Omeprazole 40 Mg Capsule.Dr) 40 mg PO BID@0630,1630 [facility] Last Admin: 11/13/23 05:40 Dose: 40 mg Ondansetron HCl (Ondansetron Hcl 4 Mg/2 Ml Vial) 4 mg IVPUSH Q8H PRN PRN Reason: Nausea and Vomiting Oxycodone HCl (Oxycodone Hcl Immed Release 5 Mg Tablet) 5 mg PO TID PRN PRN Reason: severe pain Sodium Bicarbonate (Sodium Bicarbonate 650 Mg Tablet) 650 mg PO QID [facility] Last Admin: 11/13/23 11:59 Dose: 650 mg Sodium Chloride (0.9 % Sodium Chloride Flush 3 Ml Syringe) 3 ml IVFLUSH QSHIFT [facility] Last Admin: 11/13/23 08:38 Dose: 3 ml Vitamin D (Cholecalciferol (Vitamin D3) 25 Mcg Tablet) 25 mcg PO DAILY [facility] Last Admin: 11/13/23 08:32 Dose: Not Given Allergies Allergies Allergy/AdvReac Type Severity Reaction Status Date / Time No Known Allergies Allergy Verified 11/11/23 07:08 Assessment & Plan Assessment & Plan (1) Adjustment disorder: Status: Acute Code(s): F43.20 - Adjustment disorder, unspecified Plan Psychiatry consult for: depression Patient's sister present for assessment. During assessment, pt presents alert, oriented, calm and cooperative; tearful at times. Pt stated, I feel sad. I just want to get better and go home. I've been back and forth for the last three weeks. I've been crying because of the situation I'm in. My girlfriend of three years also just broke up with me yesterday via text with no explanation . Pt denies any hx of psychiatric care; denies hx of substance abuse. Pt stated he has moved in with his sister who cares for him and no longer has an apartment. Pt reports he would be interested in talking to a therapist ; pt stated, when I'm with my friends, I'm good. But when I'm along, it would be nice to talk to someone and have a therapist. I don't think I'm at a point to take medications. I don't want any . Pt reports sleeping well and beginning to have an appetite . Pt denies SI/HI/VH/AH. Recommendations: Consult to case management to refer to outpatient therapist. Re-consult psychiatry if patient changes mind regarding psychiatric medications or depression worsens. Total time managing care of this patient today _30___ minutes. Patient educated on: diagnosis, medication risk/benefits and therapeutic strategies Guardian/Caregiver educated on: diagnosis, medication risk/benefits and therapeutic strategies Informed Consent: understands
--- NOTE | 2023-11-13 15:12 | MHC.SL.SWA ---
Speech Pathologist Impression: Risk of Aspiration Due to: Poor PO Intake Dysphasia Diet Status: Recommend continue on current diet of Chopped/Advanced (NDD3) with [place] Thick liquids, pills whole in puree. Recommend dysphagia tx at next level of care, Liquid Consistency and Strategies for Safe Swallow: Liquid Intake Recommendation: Thin Liquid Intake Strategies: Small Sips Solid Food Consistency: Dietary Recommendations: Chopped/Advanced (NDD3) Additional Modifications to Solid Foods: CONTINUE CHOPPED/ADVANCED SOLIDS and NECTAR-THICK LIQUIDS. Continue ASPIRATION PRECAUTIONS. Assist with TRAY SET-UP for meals. Family provided IDDSI Level 6 hand out and encouraged to bring compliant food from home given food sensitivities. Oral Medication Intake: Whole with Puree Please contact the pharmacy regarding appropriate crushable or liquid drug formulations that are available whenever modified delivery is recommended. Compensatory Strategies and Precautions to be Taken for Safe Swallow: Sitting Upright (90 deg) No Straw Liquids from Cup Small Bites and Sips Alternate Liquids/Solids Avoid Specific Foods Supervision While Eating and Drinking for Safe Swallow: Total Supervision (1:1) Foods to Avoid: Swallowing Recommended Treatments: Base of Tongue Exercises Pharyngeal Resistive Exer Recommendation for Speech: Outpatient Speech Therapy Inpatient Speech Therapy Comment: Patient seen during lunch, was being assisted by and being very cooperative with meal. Patient observed consuming chopped chicken in gravy, taking small bites, producing a timely hard swallow on these bites of meat, and tolerating well. Patient stated a preference for the mashed potatoes on the tray and was noted to be tolerating this as well. No drinks appeared to have come with his lunch tray, he had asked for water from the HOSTING ENGINEER who brought a cup of nectar thick water for him. Patient took sips of NT water commenting tastes good, and tolerating well without clinical signs of aspiration. Patient at one point during the visit became suddenly labile as was describing the services he would be receiving at home, with patient stating I want to go home! Patient was re-assured that discharge plan indicated he was heading home with services, which appeared to calm him. Recommend continue on current diet of Chopped/Advanced (NDD3) with [place] Thick liquids, pills crushed in puree. Frequency/Duration: Date Range for Service Req: Timeline to reassess: Internet Salesperson Clinican/Clinical Fellow: No Supervisory Statement: I have reviewed and agree with the student/clinical fellow's documentation: N/A Speech Language Pathologist: Mikaela Smith M.A., [facility]-FIRE COORDINATOR
[2023-11-13 15:56] LABS: Glucose, Whole Blood 258 mg/dL (60-115)
[2023-11-13 16:18] LABS: Strep Pneumo Ag urine Not Detected (Not Detected)
[2023-11-13] MEDS: Insulin Glargine,Hum.rec.anlog 100 UNIT/ML 10 ML VIAL 20 UNIT SUBCUT (16:32)
[2023-11-13 20:33] LABS: Glucose, Whole Blood 198 mg/dL (60-115)
[2023-11-14 03:39] LABS: Legionella Ag Urine Not Detected (Not Detected)
[2023-11-14 03:48] VITALS: BP 162/76; PULSE 79; RESP 18; TEMP 36.7; O2SAT 94
[2023-11-14] MEDS: Omeprazole 40 MG CAPSULE.DR PO (05:46)
[2023-11-14 06:43] LABS: Anion Gap 13 (12-20); Blood Urea Nitrogen 48 mg/dL (9-16); Calcium 8.6 mg/dL (8.4-10.2); Carbon Dioxide 20 mmol/L (22-29); Chloride 113 mmol/L (96-108); Creatinine Clr Calc Pharmacy 17.9; Estimated Glomerular Filt Rate 11; Glucose Random 164 mg/dL (60-115); Potassium 4.5 mmol/L (3.3-5.1); Sodium 141 mmol/L (135-145)
[2023-11-14 07:53] VITALS: BP 171/83; PULSE 77; RESP 18; TEMP 36.7; O2SAT 93
[2023-11-14 07:58] LABS: Glucose, Whole Blood 165 mg/dL (60-115)
[2023-11-14] MEDS: Cholecalciferol (Vitamin D3) 25 MCG TABLET PO (09:09)
[2023-11-14] MEDS: Insulin Glargine,Hum.rec.anlog 100 UNIT/ML 10 ML VIAL 20 UNIT SUBCUT (09:10)
[2023-11-14] MEDS: Atorvastatin Calcium 80 MG TABLET PO (09:10)
[2023-11-14] MEDS: Sodium Bicarbonate 650 MG TABLET PO ×2 (09:10→11:43)
[2023-11-14] MEDS: 0.9 % Sodium Chloride Flush 3 ML SYRINGE IVFLUSH (09:14)
[2023-11-14 09:16] VITALS: BP 171/83
[2023-11-14] MEDS: amLODIPine Besylate 10 MG TABLET PO (09:16)
[2023-11-14] MEDS: Insulin Lispro 100 UNIT/ML 3 ML VIAL SUBCUT ×2 (09:16→11:43)
[2023-11-14 09:17] VITALS: BP 171/83
[2023-11-14] MEDS: hydrALAZINE HCl 50 MG TABLET 100 MG PO (09:17)
--- NOTE | 2023-11-14 10:16 | P.PNNP_ITS ---
Subjective Subjective Date of Service: 11/14/23 Interval history: Events noted Physical Exam 2 Vital Signs: Vital Signs: Last Vital Signs Temp 98.0 F 11/14/23 07:53 Pulse 77 11/14/23 07:53 Resp 18 11/14/23 07:53 BP 171/83 H 11/14/23 09:17 Pulse Ox 93 11/14/23 07:53 O2 Del Method Nasal Cannula 11/14/23 07:53 O2 Flow Rate 2.0 11/14/23 07:53 BMI result Body Mass Index 34.4 Const: General: cooperative Orientation/consciousness: patient oriented x3 Limitations: no limitations HEENT: Head: Yes normal to inspection and Yes atraumatic Ears: hearing grossly normal bilaterally General nose exam: Normal external nose present Face and sinus: Yes normal facial exam Eyes: General: appearance normal, both eyes and all related structures EOM: EOMs intact bilaterally Neck: Neck: Yes normal visual inspection and Yes no meningeal signs Resp: Effort & Inspection: normal respiratory effort and no respiratory distress Auscultation: rhonchi throughout Cardio: Rate: regular rate Heart sounds: S1 normal heart sound present and S2 normal heart sound present GI: Other: Healing ecchymosis noted to lower abdomen Inspection: Yes normal to inspection Palpation (GI): Soft to palpation, Tenderness to palpation present (GI) in the LLQ, no guarding and not rigid : General: Yes no CVA tenderness Back/Spine/Pelvis: Back: no CVA tenderness Skin: Rashes: no rashes Neuro: General: patient oriented x3, tone normal and no meningeal signs C ranial nerves: Yes CN's II-XII intact bilaterally Extrem: General: Yes normal to inspection Objective Data Labs 11/12/23 05:25 11/14/23 05:52 Labs: Laboratory Results - last 24 hr 11/11/23 11/13/23 11/13/23 11:56 11:35 15:52 Hold Purple Top Sodium Potassium Chloride Carbon Dioxide Anion Gap BUN Creatinine Estim Creat Clear Calc Estimated GFR POC Glucose 334 H 258 H Random Glucose Calcium Ur L.pneumophila Ag Not Detected Ur Strep pneumoniae Ag Not Detected 11/13/23 11/14/23 11/14/23 20:27 05:52 07:47 Hold Purple Top SEE NOTE Sodium 141 Potassium 4.5 Chloride 113 H Carbon Dioxide 20 L Anion Gap 13 BUN 48 H Creatinine 5.35 H* Estim Creat Clear Calc 17.9 Estimated GFR 11 POC Glucose 198 H 165 H Random Glucose 164 H Calcium 8.6 D Ur L.pneumophila Ag Ur Strep pneumoniae Ag Microbiology Microbiology Results: Microbiology 11/12/23 11:25 Sputum - Expectorated Gram Stain - Final 11/12/23 11:25 Sputum - Expectorated Sputum Culture - Preliminary Culture in progress. 11/11/23 07:38 Blood - Venous Blood Culture - Preliminary No growth after 48 hours. 11/11/23 07:26 Blood - Venous Blood Culture - Preliminary No growth after 48 hours. Procedures Date of Service Date of Service: 11/14/23 Assessment & Plan Assessment and plan (1) Chronic kidney disease, stage V: Status: Acute Plan Renal function is at baseline. No overt signs or symptoms of uremia or fluid overload. No hyperkalemia. Hyperchloremic metabolic acidosis due to CKD Anemia Agree with increasing sodium bicarbonate. Stay on low-potassium diet upon discharge s/p Epogen x1 dose 11/11 Ordered another dose today. Okay to discharge home from renal standpoint. Lissa buchanan arrange for outpatient follow up in 1-2 weeks. Concur with current medical management Time Spent With Patient Time: Total time managing care of this patient today ____ minutes. Progress Note: Quality Stroke Does the patient have a stroke diagnosis?: No
--- NOTE | 2023-11-14 11:05 | MHC.SL.SWA ---
Speech Pathologist Impression: Risk of aspiration, oropharyngeal dysphagia, MBSS showing aspiration on thin liquids Risk of Aspiration Due to: Poor PO Intake Dysphasia Diet Status: Recommend continue on current diet of Chopped/Advanced (NDD3) with [place] Thick liquids, pills whole in puree. Recommend resume dysphagia treatment at next level of care ([facility]) with outpatient MBSS post-treatment. Liquid Consistency and Strategies for Safe Swallow: Liquid Intake Recommendation: [place] Thick Liquid Intake Strategies: Small Sips No Straws Solid Food Consistency: Dietary Recommendations: Chopped/Advanced (NDD3) Additional Modifications to Solid Foods: CONTINUE CHOPPED/ADVANCED SOLIDS and NECTAR-THICK LIQUIDS. Continue ASPIRATION PRECAUTIONS. Assist with TRAY SET-UP for meals. Family provided IDDSI Level 6 hand out and encouraged to bring compliant food from home given food sensitivities. Oral Medication Intake: Whole with Puree Please contact the pharmacy regarding appropriate crushable or liquid drug formulations that are available whenever modified delivery is recommended. Compensatory Strategies and Precautions to be Taken for Safe Swallow: Sitting Upright (90 deg) No Straw Liquids from Cup Small Bites and Sips Alternate Liquids/Solids Rate of Ingestion Change Avoid Specific Foods Supervision While Eating and Drinking for Safe Swallow: Total Supervision (1:1) Swallowing Recommended Treatments: Base of Tongue Exercises Pharyngeal Resistive Exer Compens. Strategy Educat. Recommendation for Speech: Outpatient Speech Therapy Inpatient Speech Therapy Comment: Pt seen during hospitalization last week and for inpatient MBSS on 11/04/23. Pt presented w/ kati aspiration on thin liquids and was recommended nectar thick liquids, chopped/advanced solids, and pills whole in puree. Recommend UPGRADE from NPO to diet consistent w/ MBSS recommendations: CHOPPED/ADVANCED solids (NDD3), NECTAR THICK liquids, and pills WHOLE in PUREE. Recommend FULL SUPERVISION to monitor toleration of diet. Recommend pt hold off on [place] Free Water Protocol (FFWP) at this time. Recommend pt continue w/ pharyngeal strengthening dysphagia exercises. Pt may benefit from repeat MBSS at later date. Frequency/Duration: Date Range for Service Req: Timeline to reassess: Dental Technology Advisor Clinican/Clinical Fellow: No Supervisory Statement: I have reviewed and agree with the student/clinical fellow's documentation: N/A Speech Language Pathologist: Ileana Reno M.A., CCC-HOG BUYER
[2023-11-14 11:35] LABS: Glucose, Whole Blood 263 mg/dL (60-115)
[2023-11-14] MEDS: Epoetin Alfa-epbx 10,000 UNIT/ML VIAL 5000 UNIT SUBCUT (12:48)
--- NOTE | 2023-11-14 13:09 | P.DS_ITS ---
DS: Providers Provider Date of Service: 11/14/23 Date of admission: 11/11/23 10:28 Date of discharge: 11/14/23 Primary care physician: Michael Garcia MD Admitting clinician: Alberto Patel Attending physician on admission: Alberto Patel Consults: 11/11/23 10:33 Consult to Nephrology Routine Consulting Provider: [facility] Reason for consultation: ckd5, ?need for HD 11/13/23 09:50 Consult to Psychiatry Routine Consulting Provider: Psych Covering Reason for consultation: depressed. Has provider been notified: No Attending physician on discharge: Alberto Patel Discharging clinician: Alberto Patel DS: Diagnosis Discharge Diagnosis (1) Chronic kidney disease, stage V: Status: Acute DS: Summary Hospital Course Hospital Course: Hpi:53-year-old male with history of hypertension, insulin-dependent type 2 diabetes, diabetic polyneuropathy, CKD stage 5, hyperlipidemia, chronic normocytic anemia, mood disorder, history of embolic stroke no longer on blood thinners due to GI bleed presents to the ED earlier today complaining of fevers, fatigue/weakness, lethargy, occasionally productive cough, and vomiting ongoing for 1 day. Reports eating salmon prior to symptom onset which he felt may have been bad. Patient was recently admitted for prolonged hospitalization from 10/23- 11/07 for DKA and hyperkalemia requiring ICU admission for insulin drip which resolved. course was complicated by aspiration pneumonia treated wtih IV zosyn and embolic stroke started on DAPT/statin but developed GI bleed and DAPT was stopped and required multiple transfusions. He did also undergo single instance of emergent HD. On arrival, vital signs significant for hypoxia to 88% on room air placed on 2 L supplemental O2 now maintaining oximetry 94%. He was also febrile to 102.3.. No leukocytosis, stable normocytic anemia with h/h 8.6/26.6. Creat 5.65/BUN 49, lytes wnl. Initial trop 153.2, repeat 144.8. BNP 351. UA wiht 3+ protein, baseline, otherwise unremarkable. CXR negative. CT abd/pelvis negative for any acute intra-abdominal abnormality to explain vomiting and abdominal pain but does show incidentally noted increasing ground-glass infiltrates at the lung bases, mild splenomegaly, symmetric bladder wall thickening and resolution of previously seen free fluid around the loop of sigmoid colon. In the ED, given 2g cefepime and will be admitted for aspiration pneumonia with acute hypoxemic respiratory failure. hospital course: acute hypoxemic respiratory failure possible sec to Aspiration pneumonia : CT scan chest-Bilateral lower lobe and right middle lobe infiltrates with associated bronchial thickening, no leukocytosis, no fever, lactic acid normal, blood cultures sent, sputum cultures sent,, respiratory viral panel sent- patient was initially placed NPO, Patient was started on IV antibiotics, cough medication, oxygen and given IV fluid, respiratory viral panel came back positive for parainfluenza 3 viral URI. Patient seems to be improved significantly with above supportive care , switched to p.o. Augmentin upon discharge, also patient was seen by speech and swallow and diet was adjusted to CHOPPED/ADVANCED solids (NDD3), NECTAR THICK liquids, and pills WHOLE in PUREE. Recommend FULL SUPERVISION to monitor toleration of diet. Patient also had initially vomiting probably related to viral URI, resolved. CT abd/pelvis negative for acute abnormality Consider outpatient follow-up with speech and swallow. Patient had hypoglycemia asymptomatic initially probably related to NPO, improved with IV fluids. His home insulin with mealtime adjusted to 5 units t.i.d., diabetic education given, Monitor fingersticks closely. CKD stage 4: Monitor BMP closely outpatient, follow-up with Nephrology outpatient. Adjusted bicarb to 650 mg q.i.d. due to low bicarb as per Nephro. Monitor BMP. also received epogen for anemia. Normocytic anemia: H&H: Around 7.8 to 8 range, monitor CBC, patient had recent GI bleed, patient was recently discharged on11/07 with recomendation to should follow up with gi. Obesity: Patient was encouraged to lose weight and cutdown calories. plan: complete augmentin 500 mg po bid for 7 days moniter cbc for anemia ,bmp for ckd. home mealtime adjusted to 5 units t.i.d.,moniter fs and adjust coverage accordingly. Consider outpatient speech and swallow for further follow up and diet advancement. Patient should follow-up with PCP, GI, Nephro outpatient. Patient refused to go to rehab. Above management discussed with the patient and his sister in detail length, they both understand and in agreement with the above plan, patient will be going home with [facility] PT OT, time spent 50 minute. Time Attestation Total time managing care of this patient today: 50 mintues. Discharge Coordination Time (in mins): 50 min Quality: Safe Use of Opioids Does Pt have an Active Cancer Diagnosis on the Problem List?: No Quality: Stroke Does the patient have a stroke diagnosis?: No Physical Exam Vital Signs: Vital Signs: Last Vital Signs Temp 98.0 F 11/14/23 07:53 Pulse 77 11/14/23 07:53 Resp 18 11/14/23 07:53 BP 171/83 H 11/14/23 09:17 Pulse Ox 93 11/14/23 07:53 O2 Del Method Nasal Cannula 11/14/23 07:53 O2 Flow Rate 2.0 11/14/23 07:53 BMI result Body Mass Index 34.4 Appearance: Alert.? Oriented X3.? cvs: rrr, [id number] . res: air entry improving ,somewhat diminshed at bases. abd: no rebound or guarding ,nt, bs present. ext pulses present , no cyanosis . neuro: moves all ext DS: Data Data Completed and Pending Completed studies during hospitalization [Text1]: Procedures Insertion of Infusion Device into Superior Vena Cava, Percutaneous Approach (10/24/23) Introduction of Vasopressor into Central Vein, Percutaneous Approach (10/24/23) Performance of Urinary Filtration, Intermittent, Less than 6 Hours Per Day (10/24/23) Transfusion of Nonautologous Red Blood Cells into Peripheral Vein, Percutaneous Approach (10/24/23) Ultrasonography of Superior Vena Cava, Guidance (10/24/23) Labs on day of discharge: Laboratory Results - last 24 hr 11/11/23 11/13/23 11/13/23 11:56 15:52 20:27 Hold Purple Top Sodium Potassium Chloride Carbon Dioxide Anion Gap BUN Creatinine Estim Creat Clear Calc Estimated GFR POC Glucose 258 H 198 H Random Glucose Calcium Ur L.pneumophila Ag Not Detected Ur Strep pneumoniae Ag Not Detected 11/14/23 11/14/23 11/14/23 05:52 07:47 11:25 Hold Purple Top SEE NOTE Sodium 141 Potassium 4.5 Chloride 113 H Carbon Dioxide 20 L Anion Gap 13 BUN 48 H Creatinine 5.35 H* Estim Creat Clear Calc 17.9 Estimated GFR 11 POC Glucose 165 H 263 H Random Glucose 164 H Calcium 8.6 D Ur L.pneumophila Ag Ur Strep pneumoniae Ag Preliminary micro results at discharge 11/12/23 11:25 Sputum Culture - Preliminary Sputum - Expectorated Culture in progress. 11/11/23 07:38 Blood Culture - Preliminary Blood - Venous No growth after 48 hours. 11/11/23 07:26 Blood Culture - Preliminary Blood - Venous No growth after 48 hours. Imaging Chest x-ray: Radiologist's impression: ITS Impressions Chest X-Ray 11/11/23 08:19 IMPRESSION: No acute cardiopulmonary disease. Abdomen/Pelvis CT 11/11/23 08:42 IMPRESSION: 1. A cause for the patient's left lower quadrant pain, nausea and vomiting has not been found. 2. Incidental note made of increasing groundglass infiltrates at the lung bases, mild splenomegaly, symmetric bladder wall thickening and resolution of previously seen free fluid around a loop of sigmoid colon. Fleischner guidelines were followed. Chest CT 11/11/23 11:34 IMPRESSION: Bilateral lower lobe and right middle lobe infiltrates with associated bronchial thickening. Findings are consistent with pneumonia in a distribution that would favor aspiration. Fleischner guidelines were followed. Discharge Plan Discharge Anticipated Discharge Date/Time: 11/14/23 12:16 Patient Disposition: Home Health Service Discharge Diagnosis: acute hypoxemic respiratory failure possible sec to Aspiration pneumonia , parainfluenza 3 viral URI Referrals: Michael Garcia MD [Primary Care Provider] - 1 Week Discharge Medications: New guaifenesin 100 mg/5 mL Liquid 100 mg PO Q6H PRN (Reason: Cough) 200 Days Qty: 200 0RF amoxicillin-pot clavulanate 400-57 mg/5 mL Suspension For Reconstitution 6.25 ml PO BID Qty: 90 0RF Continued (DME) FreeStyle Lida 14 Day Sensor Kit See Rx Instructions .ROUTE .COMPLEX Qty: 2 11RF Dose Instruction: USE DIRECTED EVERY 2 WEEKS Rx Instructions: USE DIRECTED EVERY 2 WEEKS atorvastatin 80 mg tablet 80 mg PO DAILY 90 Days Qty: 90 1RF insulin glargine [Lantus Solostar U-100 Insulin] 100 unit/mL (3 mL) insulin pen 26 unit subcut DAILY Qty: 15 3RF hydralazine 50 mg tablet 50 mg PO TID oxycodone 5 mg tablet 5 mg PO TID PRN (Reason: severe pain) omeprazole 40 mg capsule,delayed release(DR/EC) 40 mg PO BID Qty: 180 0RF amlodipine 5 mg tablet 10 mg PO DAILY Qty: 180 5RF (DME) walker Misc See Rx Instructions .Route Qty: 1 0RF Rx Instructions: As directed (DME) Shower Chair Misc See Rx Instructions .Route Qty: 1 0RF Rx Instructions: As directed cholecalciferol (vitamin D3) 25 mcg (1,000 unit) capsule 25 mcg PO DAILY Qty: 90 2RF Changed insulin lispro [Humalog KwikPen Insulin] 100 unit/mL insulin pen 5 unit subcut TIDAC Qty: 10 0RF Rx Instructions: + 2 units for bg over 200 sodium bicarbonate 650 mg tablet 650 mg PO QID Qty: 60 3RF Discharge Orders: Discharge Order (Routine); Ordered 11/14/23 Ordered By: Alberto Patel Diet: Advance to usual diet Activity on Discharge: As tolerated Stand Alone Forms: Patient Portal Discharge page Print Language: Israeli Other Ambulatory Orders: Basic Metabolic Panel (Routine) Timeframe: 1 Week Facility: [facility] - Location: Laboratory Ordered By: Alberto Patel Complete Blood Count no Diff (Routine) Timeframe: 1 Week Facility: [facility] - Location: Laboratory Ordered By: Alberto Patel Care Plan Goals: acute hypoxemic respiratory failure possible sec to Aspiration pneumonia : CT scan chest-Bilateral lower lobe and right middle lobe infiltrates with associated bronchial thickening, no leukocytosis, no fever, lactic acid normal, blood cultures sent, sputum cultures sent,, respiratory viral panel sent- patient was initially placed NPO, Patient was started on IV antibiotics, cough medication, oxygen and given IV fluid, respiratory viral panel came back positive for parainfluenza 3 viral URI. Patient seems to be improved significantly with above supportive care , switched to p.o. Augmentin upon discharge, also patient was seen by speech and swallow and diet was adjusted to CHOPPED/ADVANCED solids (NDD3), NECTAR THICK liquids, and pills WHOLE in PUREE. Recommend FULL SUPERVISION to monitor toleration of diet. Patient also had initially vomiting probably related to viral URI, resolved. CT abd/pelvis negative for acute abnormality Consider outpatient follow-up with speech and swallow. Patient had hypoglycemia asymptomatic initially probably related to NPO, improved with IV fluids. His home insulin with meal adjusted to 5 units t.i.d., diabetic education given, Monitor fingersticks closely. CKD stage 4: Monitor BMP closely outpatient, follow-up with Nephrology outpatient. Adjusted bicarb to 650 mg q.i.d. due to low bicarb as per Nephro. Monitor BMP. Normocytic anemia: H&H: Around 7.8 to 8 range, monitor CBC, patient had recent GI bleed, patient was recently discharged on11/07 with recomendation to should follow up with gi. Obesity: Patient was encouraged to lose weight and cutdown calories. Patient should follow-up with PCP, GI, Nephro outpatient. Above management discussed with the patient and his sister in detail length, time spent 50 minute. Health Concerns: As above. Plan of Treatment: As above. Assessment: As above. Patient Instructions: Pneumonia (DC)
--- NOTE | 2023-11-14 13:10 | P.F2F_ITS ---
Service Date Service Date: 11/14/23 Encounter Date of encounter: 11/14/23 Encounter: Aspiration pneumonia, parainfluenza URI, CKD stage 4, anemia Reasons for Services Signs and symptoms assessed: Shortness of breath or chest pain or any new complaints Reason for [facility]: CV/CP assess and/or care, diabetic teaching, semaj toring of unstable blood sugar, medication management, medication treatment and teach disease management Reason for physical therapy: home safety and mobility, therapeutic exercises, restore joint function, gait/transfer training, assess need for DME, ADL training, energy conservation and other Reason for occupational therapy: home safety and mobility, therapeutic exercises, restore joint function, gait/transfer training, assess need for DME, ADL training, energy conservation and other MD Overseeing Care: Michael Garcia Homebound: Leaving the home is medically contraindicated at this time without the asist of a device and/or another person due th the listed conditions above and below. Reason homebound: weakness related to hospital stay Homebound supporting statement: Patient is generalized weak, has multiple comorbidities including recent pneumonia, CKD, URI, anemia-need help with blood draw, appointment, disease management, PT/OT. Certification: Based on the above findings, I certify that this patient is confined to the home and needs intermittent [facility] care, physical therapy and/or speech therapy, or continues to need occupational therapy. The patient is under my care, and I have initiated the establishment of the plan of care. The patient will be followed by a physician who will periodically review the plan of care. Time Spent With Patient Time: Total time managing care of this patient today ____ minutes.
[2023-11-14] MEDS: Amoxicillin/Potassium Clav 4,000 MG/50 ML SUSP.RECON 875 MG PO (13:57)
--- NOTE | 2023-11-14 14:13 | MHC.CM.PN ---
PT MEDICALLY CLEARED FOR DC HOME W/RESUMP OF [facility] FOR SN/OT/PT, FAMILY FOR TRANSPORT
== END 2023-11-14 14:17 | disposition home health service (06) | DRG 137 ==
LOC: HO.ED 09:50 → HO.EDOVER 10:48 → HO.S3 19:39
PROVIDERS: Physician Assistant; Admitting Provider Physician Assistant; Emergency Provider Emergency Medicine; PCP Internal Medicine; Visit Provider Internal Medicine
DX: J69.0 Pneumonitis due to inhalation of food and vomit (principal); J96.01 Acute respiratory failure with hypoxia; I12.0 Hypertensive chronic kidney disease with stage 5 chronic kidney disease or end stage renal disease; D63.1 Anemia in chronic kidney disease; E87.20 Acidosis, unspecified; N18.5 Chronic kidney disease, stage 5; E11.22 Type 2 diabetes mellitus with diabetic chronic kidney disease; E11.65 Type 2 diabetes mellitus with hyperglycemia; J06.9 Acute upper respiratory infection, unspecified; F43.20 Adjustment disorder, unspecified; B97.81 Human metapneumovirus as the cause of diseases classified elsewhere; E66.9 Obesity, unspecified; Z68.34 Body mass index [BMI] 34.0-34.9, adult; E11.42 Type 2 diabetes mellitus with diabetic polyneuropathy; Z20.822 Contact with and (suspected) exposure to COVID-19; Z86.73 Personal history of transient ischemic attack (TIA), and cerebral infarction without residual deficits; Z79.4 Long term (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 of insulin; Z79.899 Other long term (current) drug therapy
CPT/HCPCS: 0241U; 36415; 71045; 71250; 74176; 80048; 80076; 81001; 82947; 83605; 83690; 83735; 83880; 84484; 85025; 85610; 87040; 87070; 87077; 87186; 87205; 87449; 87633; 87899; 92526; 92610; 93005; 97163; 99285; C9113; J0692; J0885; J1644; J2405; Q5106

== ENCOUNTER → 2023-11-11 07:11 | Outpatient (BNV) | payer OTHER, SELFPAY | PROVIDERS: Admitting Provider Physician Assistant; Emergency Provider Emergency Medicine; PCP Internal Medicine; Visit Provider Internal Medicine | DX: I45.81 Long QT syndrome (principal) | CPT/HCPCS: 93010 ==

== ENCOUNTER → 2023-11-11 10:28 | Outpatient (BNV) | payer OTHER, SELFPAY | PROVIDERS: Admitting Provider Physician Assistant; Emergency Provider Emergency Medicine; PCP Internal Medicine; Visit Provider Internal Medicine Hypertension Specialist | DX: N18.5 Chronic kidney disease, stage 5 (principal) | CPT/HCPCS: 99222; 99232 ==

== ENCOUNTER → 2023-11-11 10:28 | Outpatient (BNV) | payer OTHER, SELFPAY | PROVIDERS: Admitting Provider Physician Assistant; Emergency Provider Emergency Medicine; PCP Internal Medicine; Visit Provider Registered Nurse | DX: F43.20 Adjustment disorder, unspecified (principal) | CPT/HCPCS: 99232 ==

== ENCOUNTER → 2023-11-11 10:28 | Outpatient (BNV) | payer OTHER, SELFPAY | PROVIDERS: Admitting Provider Physician Assistant; Emergency Provider Emergency Medicine; PCP Internal Medicine; Visit Provider Physician Assistant | DX: N18.5 Chronic kidney disease, stage 5 (principal) | CPT/HCPCS: 99223; 99232; 99239; G0180 ==

== ENCOUNTER 2023-11-27 10:19 | Outpatient (REF) | payer OTHER, SELFPAY ==
[2023-11-27 11:44] LABS: Hematocrit 28.2 % (42.0-52.0); Mean Corpuscular HGB Conc 31.9 g/dl (31.0-36.0); Mean Corpuscular Hemoglobin 29.4 pg (27.0-33.0); Mean Corpuscular Volume 92.2 fL (80.0-98.0); Mean Platelet Volume 9.8 fL (9.4-12.4); Platelet Count 175 X10*3/uL (160-400); Red Blood Count 3.06 X10*6/uL (4.60-5.80); White Blood Count 7.7 X10*3/uL (4.8-10.8)
[2023-11-27 12:06] LABS: Anion Gap 11 (12-20); Blood Urea Nitrogen 33 mg/dL (9-16); Carbon Dioxide 26 mmol/L (22-29); Chloride 104 mmol/L (96-108); Glucose Random 168 mg/dL (60-115); Potassium 4.4 mmol/L (3.3-5.1); Sodium 137 mmol/L (135-145)
[2023-11-27 13:34] LABS: Estimated Glomerular Filt Rate 12
== END 2023-11-27 10:20 | disposition home or self-care (01) ==
LOC: HO.LAB 10:19
PROVIDERS: PCP Internal Medicine; Visit Provider Internal Medicine Hypertension Specialist
DX: I12.0 Hypertensive chronic kidney disease with stage 5 chronic kidney disease or end stage renal disease (principal); E11.22 Type 2 diabetes mellitus with diabetic chronic kidney disease; N18.5 Chronic kidney disease, stage 5; N17.9 Acute kidney failure, unspecified; D63.1 Anemia in chronic kidney disease; E87.20 Acidosis, unspecified; Z79.4 Long term (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 of insulin
CPT/HCPCS: 36415; 80048; 85027; 99212

== ENCOUNTER 2023-11-27 10:19 | Outpatient (AMB) | payer OTHER, SELFPAY ==
--- NOTE | 2023-11-27 10:18 | HO.NEPHOV ---
Vital Signs 11/27/23 10:20 BP 110/40 L Blood Pressure Location Rt brachial Position Sitting Pulse 86 Pulse Source Pulse Oximeter Pulse Oximetry (%) 97 Oxygen Delivery Method Room Air Intake Visit Reasons: HDF from 11/11/23/ [employer] Required: No Accompanied by: Spouse Allergies No Known Allergies Allergy (Verified 11/27/23 10:20) Medication List - Last Reconciled 11/27/23 by Stone Ulloa MD amlodipine 5 mg PO DAILY atorvastatin 80 mg PO DAILY 90 days [Bed pads As directed] cholecalciferol (vitamin D3) 25 mcg PO DAILY [Commode As directed] flash glucose sensor (FreeStyle Lida 14 Day Sensor kit) USE DIRECTED EVERY 2 WEEKS guaifenesin 100 mg (5 mL) PO Q6H PRN 200 days hydralazine 100 mg (2 x 50 mg) PO TID insulin glargine (Lantus Solostar U-100 Insulin) 26 units (0.26 mL) subcut DAILY insulin lispro (Humalog KwikPen (U-100) Insulin) 5 units (0.05 mL) subcut TIDAC omeprazole 40 mg PO BID oxycodone 5 mg PO TID PRN Shower Chair As directed sodium bicarbonate 650 mg PO QID walker As directed HPI Comments Details: 53-year-old man with a history of diabetes mellitus since the age of 24 has been referred for evaluation of chronic kidney disease. Howard had a serum creatinine of 5.0 with a EGFR of 12 mL/minute on 08/27/2023. In 2022 creatinine was 2.6 with a EGFR of 29 mL/minute. It appears that he has chronic kidney disease with a baseline of around 2.6 mg/dL. In 2020 he was hospitalized with Gram-positive bacteremia and he had acute kidney injury at the time. There is a history of noncompliance with medications and treatment. Overall diabetes mellitus has been suboptimally controlled with a hemoglobin A1c as high as 13%. Recent A1c is around 7.6%. He has mild diabetic retinopathy. He has nephrotic range proteinuria as well. Blood pressure has been difficult to control he has been on amlodipine 10 mg hydralazine 10 mg 3 times a day and lisinopril 20 mg once a day. Over the last few years he self medicated and increase the dose to 40 mg a day. There is episode of hyperkalemia at 6.1 back in June 2022. However the recent potassium was 4.8 mg/dL. As for the diet he eats a regular diet including high salt diet. He does not exercise regularly. No history of smoking or alcohol abuse although he socially drinks 1 or 2 drinks every couple of weeks. He tells me that his girlfriend has noticed that he has been snoring. In the past he has been referred for sleep evaluation which she did not follow through. 11/27/2023. Recently hospitalized at [facility]. He had acute kidney injury superimposed on CKD with hyperkalemia. He underwent emergency dialysis. There was some recovery of renal function and was taken off dialysis. He has been off dialysis for the last 2 weeks. He is currently nonoliguric During this admission he had CVA and had difficulty swallowing. He failed the swallowing evaluation and currently on puree diet. He has a follow-up with reporting specialist. He had severe anemia requiring blood transfusion. He received Epogen injections as well. Today he is accompanied by his family members. He is feeling much better appetite is fair no nausea or vomiting. No shortness of breath. No urinary symptoms. [facility] Medical History Metabolic acidosis Right foot ulcer Anxiety History of foot ulcer Obesity (BMI 30-39.9) Depression Rotator cuff arthropathy of left shoulder Vitamin D deficiency Allergic rhinitis Anemia Pure hypercholesterolemia Benign essential hypertension Diabetic polyneuropathy Type 2 diabetes mellitus with diabetic chronic kidney disease Erectile dysfunction Type 2 diabetes mellitus with hyperglycemia, with long-term current use of insulin Type 2 diabetes mellitus with diabetic polyneuropathy Type 2 diabetes mellitus with chronic kidney disease 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 LDL goal <70 Surgical History History of nasal surgery Family History Father Lung cancer Mother Hypertension Coronary artery disease CVD (cardiovascular disease) TIA (transient ischemic attack) Sister Diabetes Maternal Uncle Diabetes Other Mental health problem Social History Household Members: Family Housing: House Do you presently have visiting nurse or other home services: Yes Alcohol intake: current Alcohol intake frequency: holidays/special occasions only Comment: sister in room Patient Tobacco Use Status: Never used Tobacco e-Cigarette/Vaping Use: Never Used Second Hand Smoke Exposure: Yes service: No Current occupational status: unemployed Cognitive needs: No Hearing needs: No Vision needs: No Physical Exam Vital Signs: Last Vital Signs Pulse 86 11/27/23 10:20 BP 110/40 L 11/27/23 10:20 Pulse Ox 97 11/27/23 10:20 Oxygen Delivery Method Room Air 11/27/23 10:20 Const General: comfortable; No acute distress Orientation/consciousness: patient oriented x3 Eyes General: appearance normal, both eyes and all related structures Visual Altamirano: normal visual altamriano by confrontation Neck Neck: Yes supple and Yes no JVD Resp Effort & Inspection: normal respiratory effort and respiratory effort not decreased Auscultation: rhonchi Cardio Palpation: no palpable S3 and no palpable S4 Heart sounds: no rubs GI Inspection: Yes normal to inspection Palpation (GI): Soft to palpation Percussion: Yes normal to percussion Auscultation: normal bowel sounds General: Yes no CVA tenderness Back/Spine/Pelvis Back: no CVA tenderness Skin General skin exam: no petechiae and no purpura Neuro General: patient oriented x3 and no focal motor deficits Extrem General: No clubbing and Yes edema (1+) Results Reviewed Nephrology Results: Hgb 9.0 g/dl (14.0-18.0) L 11/27/23 WBC 7.7 X10*3/uL (4.8-10.8) 11/27/23 Plt Count 175 X10*3/uL (160-400) 11/27/23 Sodium 137 mmol/L (135-145) 11/27/23 Potassium 4.4 mmol/L (3.3-5.1) 11/27/23 Chloride 104 mmol/L (96-108) 11/27/23 Carbon Dioxide 26 mmol/L (22-29) 11/27/23 BUN 33 mg/dL (9-16) H 11/27/23 Creatinine 4.93 mg/dL (0.5-1.4) H* 11/27/23 Calcium 9.0 mg/dL (8.4-10.2) 11/27/23 Urine Protein 300 (3+) mg/dL (Neg-Trace) H 11/11/23 Assessment & Plan Assessment & Plan (1) Acute on chronic kidney failure: Code(s): N17.9 - Acute kidney failure, unspecified; N18.9 - Chronic kidney disease, unspecified Category: Medical Qualifiers: Acute renal failure type: unspecified Chronic kidney disease stage: stage 5, not on chronic dialysis Qualified Code(s): N17.9 - Acute kidney failure, unspecified; N18.5 - Chronic kidney disease, stage 5 (2) Chronic kidney disease, stage V: Comment: Most likely due to diabetic nephropathy. He has nephrotic range proteinuria. In the past basic serology was unremarkable. Code(s): N18.5 - Chronic kidney disease, stage 5 Category: Medical Plan: Goal is to slow the progression of renal disease. Optimize blood pressure Optimize blood sugar control. Continue to avoid nephrotoxic agents including NSAIDs. Cr unchanged Mild secondary hyperparathyroidism with Vit D deficiency Cholecalceferol and follow iPTH May need calcitriol Needs renal replacement therapy in the near future. I will refer him for CCP D. Family is in agreement. (3) Essential hypertension: Code(s): I10 - Essential (primary) hypertension Category: Medical Plan: Blood pressure is well controlled we will keep him on the current medications Encouraged him to stay on low-sodium diet Goal is to maintain blood pressure less than 130 mm of mercury systolic. No absolute indication for diuretic yet (4) Type 2 diabetes mellitus with diabetic chronic kidney disease: Code(s): E11.22 - Type 2 diabetes mellitus with diabetic chronic kidney disease Category: Medical Qualifiers: Diabetes mellitus emt intermediate insulin use: with fdc use Chronic kidney disease stage: stage 3 (moderate) Chronic kidney disease stage 3 subtype: stage 3b (GFR 30-44) Qualified Code(s): E11.22 - Type 2 diabetes mellitus with diabetic chronic kidney disease; N18.32 - Chronic kidney disease, stage 3b; Z79.4 - terminal carman (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 of insulin Plan: Goal is to maintain A1c less than 7%. Encouraged to increase physical activity as well. Defer management to PCP (5) Anemia due to chronic kidney disease: Comment: Most likely due to erythropoietin deficiency iron TIBC ferritin B12 and folate. are normal Code(s): N18.9 - Chronic kidney disease, unspecified; D63.1 - Anemia in chronic kidney disease Category: Medical Plan: If hemoglobin drops further I will initiate Retacrit (6) Metabolic acidosis: Code(s): E87.20 - Acidosis, unspecified Category: Medical Plan: Continue Sodium bicarbonate 650 mg h/o hyperkalemia in the setting of CKD. At present case in the normal range Discussed and gave instructions for low K diet Plan Need to rule out obstructive sleep apnea. He may require sleep evaluation I have discussed this with him. Referred to Sleep [facility] service Orders: Orders Basic Metabolic Panel Today Stone Ulloa MD N17.9 - Acute kidney failure, unspecified, N18.5 - Chronic kidney disease, stage 5 Complete Blood Count no Diff Today Stone Ulloa MD N17.9 - Acute kidney failure, unspecified, N18.5 - Chronic kidney disease, stage 5 Medications: Changed From amlodipine 10 mg (2 x 5 mg) PO DAILY 180 tabs 5RF I10 - Essential (primary) hypertension To amlodipine 5 mg PO DAILY I10 - Essential (primary) hypertension Sal Barreto MD Coding Level of Care Code Est Pt Level 5 (31975) Diagnoses Acute on chronic kidney failure N17.9; N18.5 Acute renal failure type: unspecified Chronic kidney disease stage: stage 5, not on chronic dialysis Chronic kidney disease, stage V N18.5 Essential hypertension I10 Type 2 diabetes mellitus with stage 3b chronic kidney disease, with long-term current use of insulin E11.22; N18.32; Z79.4 Diabetes mellitus fdc insulin use: with fdc use Chronic kidney disease stage: stage 3 (moderate) Chronic kidney disease stage 3 subtype: stage 3b (GFR 30-44) Anemia due to chronic kidney disease N18.9; D63.1 Metabolic acidosis E87.20
[2023-11-27 10:20] VITALS: BP 110/40; PULSE 86; O2SAT 97
== END 2023-11-27 10:46 | disposition home or self-care (01) ==
PROVIDERS: PCP Internal Medicine; Visit Provider Internal Medicine Hypertension Specialist
DX: N17.9 Acute kidney failure, unspecified (principal); I12.0 Hypertensive chronic kidney disease with stage 5 chronic kidney disease or end stage renal disease; E11.22 Type 2 diabetes mellitus with diabetic chronic kidney disease; N18.5 Chronic kidney disease, stage 5; Z79.4 Long term (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 of insulin; D63.1 Anemia in chronic kidney disease; E87.22 Chronic metabolic acidosis
CPT/HCPCS: 99215

== ENCOUNTER 2023-12-05 12:23 | Outpatient (AMB) | payer OTHER, SELFPAY ==
--- NOTE | 2023-12-05 12:33 | A.OFFPC_ITS ---
Vital Signs 12/05/23 12:34 Height 5 ft 7 in Weight 213 lb 6.519 oz BMI 33.4 BP 140/60 H Blood Pressure Location Rt brachial Position Sitting Pulse 82 Pulse Source Pulse Oximeter Pulse Oximetry (%) 97 Oxygen Delivery Method Room Air Intake Visit Reasons: HDF ~ Post hospital discharge FU Intake Note: Patient is here for hospital discharge follow up. Patient was discharged from [facility] on 10/29/23. Depression concern Life Insurance Underwriter Required: No Dtp Operator: Present Accompanied by: Sister Followed by:: GAURAV Allergies No Known Allergies Allergy (Verified 12/05/23 12:34) Tobacco use date assessed: 12/05/23 Dental Screening Dental Screen Date: 08/25/23 HPI HPI Comments History of Present Illness Details 53 y/o male patient with history of hype rtension, insulin-dependent type 2 diabetes, diabetic polyneuropathy, CKD stage 5, hyperlipidemia, chronic normocytic anemia, mood disorder, history of embolic stroke no longer on blood thinners due to GI bleed presents to the clinic for hospital discharge follow up. Accompanied by family members. DOS: 11/11/23 and DOD: 11/14/23 Diagnoses: Chronic kidney disease, stage V, Aspiration Pneumonia and Depression. Today Pt reports feeling Depressed and sad, since being discharged from the [facility]. Denies SA or SI. He did score high on PHQ. Pt also reports difficulties with sleeping at night. Pt also c/o Lower BS readings; Less that 30-60s. His Lantus was dropped from 26 IU to 22 IU by [facility]. Caretakers at home have been holding his Humalog due to low BS readings. He does admit to not eating well and not having good appetite. [facility] Medical History Metabolic acidosis Right foot ulcer Anxiety History of foot ulcer Obesity (BMI 30-39.9) Depression Rotator cuff arthropathy of left shoulder Vitamin D deficiency Allergic rhinitis Anemia Pure hypercholesterolemia Benign essential hypertension Diabetic polyneuropathy Type 2 diabetes mellitus with diabetic chronic kidney disease Erectile dysfunction Type 2 diabetes mellitus with hyperglycemia, with long-term current use of insulin Type 2 diabetes mellitus with diabetic polyneuropathy Type 2 diabetes mellitus with chronic kidney disease 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 LDL goal <70 Surgical History History of nasal surgery Family History Father Lung cancer Mother Hypertension Coronary artery disease CVD (cardiovascular disease) TIA (transient ischemic attack) Sister Diabetes Maternal Uncle Diabetes Other Mental health problem Social History Household Members: Family Housing: House Do you presently have visiting nurse or other home services: Yes Alcohol intake: current Alcohol intake frequency: holidays/special occasions only Comment: sister in room Patient Tobacco Use Status: Never used Tobacco e-Cigarette/Vaping Use: Never Used Second Hand Smoke Exposure: Yes service: No Current occupational status: unemployed Cognitive needs: Yes (wheelchair, walker) Hearing needs: No Vision needs: No Questionnaire PHQ-9 Over the last 2 weeks, how often have you been bothered by any of the following problems? 1. Little interest or pleasure in doing things: several days 2. Feeling down, depressed, or hopeless: nearly every day 3. Trouble falling or staying asleep, or sleeping too much: nearly every day 4. Feeling tired or having little energy: more than half the days 5. Poor appetite or overeating: not at all 6. Feeling bad about yourself - or that you are a failure or have let yourself or your family down: nearly every day 7. Trouble concentrating on things, such as reading the newspaper or watching television: several days 8. Moving or speaking so slowly that other people could have noticed. Or the opposite - being so fidgety or restless that you have been moving around a lot more than usual: not at all 9. Thoughts that you would be better off or of hurting yourself in some way: not at all Total score: 13 Depression Screening Interpretation: Positive Depression Screening Done: Yes Source: Developed by Drs. Zay Babb, Genesis Aiken, Tony Garcia and colleagues, with an educational phoenix from [employer]. Thrive Questionnaire Date Thrive assessed: 11/12/23 ANAHI-7 AMB Questionnaire ANAHI-7 Date ANAHI - 7 assessed: 12/05/23 Feeling nervous, anxious, or on edge: 3 = Nearly every day Not being able to stop or control worryin = More than half the days Worrying too much about different things: 2 = More than half the days Trouble relaxin = More than half the days Being so restless that it is hard to sit still: 0 = Not at all Becoming easily annoyed or irritable: 2 = More than half the days Feeling afraid as if something awful might happen: 1 = Several days Total ANAHI-7 score (0-4 normal; 5-9 mild; 10-14 moderate; 15-21 severe): 12 Source: Developed by Drs. Zay Babb, Genesis Aiken, Tony Garcia and colleagues, with an educational phoenix from [employer]. Physical exam (Primary Care) Vital Signs: Last Vital Signs Pulse 82 12/05/23 12:34 BP 140/60 H 12/05/23 12:34 Pulse Ox 97 12/05/23 12:34 Oxygen Delivery Method Room Air 12/05/23 12:34 BMI result Body Mass Index 33.4 Tobacco/Smoking Status: Tobacco use Status Tobacco use date assessed 12/05/23 12/05/23 12:43 Patient Tobacco Use Status Never used Tobacco 12/05/23 12:43 e-Cigarette/Vaping Use Never Used 12/05/23 12:43 PHQ-9: PHQ-9 Score PHQ-9: Total score 13 12/05/23 13:33 Depression Screening Interpretation: Positive Thrive Assessment: Date of Thrive Assessment Date Thrive assessed 11/12/23 12/05/23 12:43 Const General: cooperative and no acute distress Limitations: wheelchair HENMT Head: Yes normocephalic Ears: external ears normal and TM's normal bilaterally Resp Effort & Inspection: normal respiratory effort and able to speak in complete sentences Auscultation: clear to auscultation bilaterally, no crackles, no rales, no rhonchi and no wheezes Cardio Rate: regular rate Rhythm: regular rhythm Psych Speech and movement: Normal speech and movement present Affect: Labile affect present Attitude: cooperative Thought content: suicidality and no homicidality Vital Signs: Last Vital Signs Pulse 82 12/05/23 12:34 BP 140/60 H 12/05/23 12:34 Pulse Ox 97 12/05/23 12:34 Oxygen Delivery Method Room Air 12/05/23 12:34 BMI result Body Mass Index 33.4 Const General: cooperative and no acute distress Limitations: wheelchair HEENT Head: Yes normocephalic Ears: external ears normal and TM's normal bilaterally Resp Effort & Inspection: normal respiratory effort and able to speak in complete sentences Auscultation: clear to auscultation bilaterally, no crackles, no rales, no rhonchi and no wheezes Cardio Rate: regular rate Rhythm: regular rhythm Psych Speech and movement: Normal speech and movement present Affect: Labile affect present Attitude: cooperative Thought content: suicidality and no homicidality Assessment and Plan Assessment & Plan (1) Type 2 diabetes mellitus with chronic kidney disease: Code(s): E11.22 - Type 2 diabetes mellitus with diabetic chronic kidney disease Qualifiers: Chronic kidney disease stage: stage 3 (moderate) Chronic kidney disease stage 3 subtype: stage 3b (GFR 30-44) Diabetes mellitus [facility] insulin use: with [facility] use Qualified Code(s): E11.22 - Type 2 diabetes mellitus with diabetic chronic kidney disease; N18.32 - Chronic kidney disease, stage 3b; Z79.4 - intermediate manager (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 of insulin Plan: F/U with PCP/[facility] regarding DM management changes. Meanwhile hold on HUmalog for meals, until diet improves and able to eat enough calories. (2) Depression: Code(s): F32.9 - Major depressive disorder, single episode, unspecified Qualifiers: Depression Type: unspecified Qualified Code(s): F32.9 - Major depressive disorder, single episode, unspecified Plan: Started Pt on Trazodone and Mirtazapine Will inform PCP to f/u with Pt in the next 4 to 6 weeks for medication adjustments if indicated. Educated on Medication side effects and what to report (3) Insomnia: Code(s): G47.00 - Insomnia, unspecified Qualifiers: Insomnia type: due to medical condition Qualified Code(s): G47.01 - Insomnia due to medical condition Plan: Started Trazadone. Orders: Referrals Psychiatry Referral F32.9 - Major depressive disorder, single episode, unspecified, G47.01 - Insomnia due to medical condition Medications: New trazodone 50 mg PO BEDTIME PRN 30 tabs 1RF sleep G47.00 - Insomnia, unspecified mirtazapine 15 mg PO BEDTIME 30 tabs 1RF F32.9 - Major depressive disorder, single episode, unspecified, G47.00 - Insomnia, unspecified Coding Level of Care Code Est Pt Level 4 (75184) Diagnoses Type 2 diabetes mellitus with stage 3b chronic kidney disease, with long-term current use of insulin E11.22; N18.32; Z79.4 Chronic kidney disease stage: stage 3 (moderate) Chronic kidney disease stage 3 subtype: stage 3b (GFR 30-44) Diabetes mellitus [facility] insulin use: with [facility] use Depression, unspecified depression type F32.9 Depression Type: unspecified Insomnia due to medical condition G47.01 Insomnia type: due to medical condition Comment Spent 20 minutes reviewing hospital notes and labs
[2023-12-05 12:34] VITALS: BP 140/60; PULSE 82; O2SAT 97; BMI 33.4
== END 2023-12-05 13:36 | disposition home or self-care (01) ==
PROVIDERS: PCP Internal Medicine; Visit Provider Nurse Practitioner Family
DX: E11.22 Type 2 diabetes mellitus with diabetic chronic kidney disease (principal); N18.32 Chronic kidney disease, stage 3b; Z79.4 Long term (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 of insulin; F33.9 Major depressive disorder, recurrent, unspecified; G47.01 Insomnia due to medical condition
CPT/HCPCS: 99214

== ENCOUNTER 2023-12-19 10:32 | Outpatient (AMB) | payer OTHER, SELFPAY ==
--- NOTE | 2023-12-19 10:34 | HO.NEPHOV_ITS ---
Vital Signs 12/19/23 10:36 12/19/23 10:53 Height 5 ft 7 in Weight 220 lb 2 oz BMI 34.5 BP 150/60 H 130/60 Blood Pressure Location Rt brachial Rt brachial Position Sitting Sitting Pulse 83 Pulse Source Pulse Oximeter Pulse Oximetry (%) 98 Oxygen Delivery Method Room Air Intake Visit Reasons: Acute on chronic kidney failure/ LVM Observatory Director Required: No Accompanied by: Sister Allergies No Known Allergies Allergy (Verified 12/19/23 10:39) Medication List - Last Reconciled 12/19/23 by Stone Ulloa MD amlodipine 5 mg PO DAILY atorvastatin 80 mg PO DAILY 90 days [Bed pads As directed] cholecalciferol (vitamin D3) 25 mcg PO DAILY [Commode As directed] flash glucose sensor (FreeStyle Lida 14 Day Sensor kit) USE DIRECTED EVERY 2 WEEKS guaifenesin 100 mg (5 mL) PO Q6H PRN 200 days hydralazine 100 mg (2 x 50 mg) PO TID insulin glargine (Lantus Solostar U-100 Insulin) 26 units (0.26 mL) subcut DAILY insulin lispro (Humalog KwikPen (U-100) Insulin) 5 units (0.05 mL) subcut TIDAC mirtazapine 15 mg PO BEDTIME omeprazole 40 mg PO BID oxycodone 5 mg PO TID PRN oxycodone 5 mg PO BID-TID PRN 28 days Shower Chair As directed sodium bicarbonate 650 mg PO BID walker As directed HPI Comments Details: 53-year-old man with a history of diabetes mellitus since the age of 24 has been referred for evaluation of chronic kidney disease. Howard had a serum creatinine of 5.0 with a EGFR of 12 mL/minute on 08/27/2023. In 2022 creatinine was 2.6 with a EGFR of 29 mL/minute. It appears that he has chronic kidney disease with a baseline of around 2.6 mg/dL. In 2020 he was hospitalized with Gram-positive bacteremia and he had acute kidney injury at the time. There is a history of noncompliance with medications and treatment. Overall diabetes mellitus has been suboptimally controlled with a hemoglobin A1c as high as 13%. Recent A1c is around 7.6%. He has mild diabetic retinopathy. He has nephrotic range proteinuria as well. Blood pressure has been difficult to control he has been on amlodipine 10 mg hydralazine 10 mg 3 times a day and lisinopril 20 mg once a day. Over the last few years he self medicated and increase the dose to 40 mg a day. There is episode of hyperkalemia at 6.1 back in June 2022. However the recent potassium was 4.8 mg/dL. As for the diet he eats a regular diet including high salt diet. He does not exercise regularly. No history of smoking or alcohol abuse although he socially drinks 1 or 2 drinks every couple of weeks. He tells me that his girlfriend has noticed that he has been snoring. In the past he has been referred for sleep evaluation which she did not follow through. 11/27/2023. Recently hospitalized at [facility] He had acute kidney injury superimposed on CKD with hyperkalemia. He underwent emergency dialysis. There was some recovery of renal function and was taken off dialysis. He has been off dialysis for the last 2 weeks. He is currently nonoliguric During this admission he had CVA and had difficulty swallowing. He failed the swallowing evaluation and currently on puree diet. He has a follow-up with life manager. He had severe anemia requiring blood transfusion. He received Epogen injections as well. Today he is accompanied by his family members. He is feeling much better appetite is fair no nausea or vomiting. No shortness of breath. No urinary symptoms. 12/19/2023. Overall doing better from his last visit no new issues He met with the dialysis nurse and currently being evaluated for peritoneal dialysis [facility] Medical History Metabolic acidosis Right foot ulcer Anxiety History of foot ulcer Obesity (BMI 30-39.9) Depression Rotator cuff arthropathy of left shoulder Vitamin D deficiency Allergic rhinitis Anemia Pure hypercholesterolemia Benign essential hypertension Diabetic polyneuropathy Type 2 diabetes mellitus with diabetic chronic kidney disease Erectile dysfunction Type 2 diabetes mellitus with hyperglycemia, with long-term current use of insulin Type 2 diabetes mellitus with diabetic polyneuropathy Type 2 diabetes mellitus with chronic kidney disease 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 LDL goal <70 Surgical History History of nasal surgery Family History Father Lung cancer Mother Hypertension Coronary artery disease CVD (cardiovascular disease) TIA (transient ischemic attack) Sister Diabetes Maternal Uncle Diabetes Other Mental health problem Social History Household Members: Family Housing: House Do you presently have visiting nurse or other home services: Yes Alcohol intake: current Alcohol intake frequency: holidays/special occasions only Comment: sister in room Patient Tobacco Use Status: Never used Tobacco e-Cigarette/Vaping Use: Never Used Second Hand Smoke Exposure: Yes service: No Current occupational status: unemployed Cognitive needs: Yes (wheelchair, walker) Hearing needs: No Vision needs: No Physical Exam Vital Signs: Last Vital Signs Pulse 83 12/19/23 10:36 BP 130/60 12/19/23 10:53 Pulse Ox 98 12/19/23 10:36 Oxygen Delivery Method Room Air 12/19/23 10:36 BMI result Body Mass Index 34.5 Const General: comfortable; No acute distress Orientation/consciousness: patient oriented x3 Eyes General: appearance normal, both eyes and all related structures Visual Altamirano: normal visual altamirano by confrontation Neck Neck: Yes supple and Yes no JVD Resp Effort & Inspection: normal respiratory effort and respiratory effort not decreased Auscultation: rhonchi Cardio Palpation: no palpable S3 and no palpable S4 Heart sounds: no rubs GI Inspection: Yes normal to inspection Palpation (GI): Soft to palpation Percussion: Yes normal to percussion Auscultation: normal bowel sounds General: Yes no CVA tenderness Back/Spine/Pelvis Back: no CVA tenderness Skin General skin exam: no petechiae and no purpura Neuro General: patient oriented x3 and no focal motor deficits Extrem General: No clubbing and No edema Results Reviewed Nephrology Results: Hgb 9.0 g/dl (14.0-18.0) L 11/27/23 WBC 7.7 X10*3/uL (4.8-10.8) 11/27/23 Plt Count 175 X10*3/uL (160-400) 11/27/23 Sodium 137 mmol/L (135-145) 11/27/23 Potassium 4.4 mmol/L (3.3-5.1) 11/27/23 Chloride 104 mmol/L (96-108) 11/27/23 Carbon Dioxide 26 mmol/L (22-29) 11/27/23 BUN 33 mg/dL (9-16) H 11/27/23 Creatinine 4.93 mg/dL (0.5-1.4) H* 11/27/23 Calcium 9.0 mg/dL (8.4-10.2) 11/27/23 Urine Protein 300 (3+) mg/dL (Neg-Trace) H 11/11/23 Assessment & Plan Assessment & Plan (1) Chronic kidney disease, stage V: Comment: Most likely due to diabetic nephropathy. He has nephrotic range proteinuria. In the past basic serology was unremarkable. Code(s): N18.5 - Chronic kidney disease, stage 5 Category: Medical Plan: Goal is to slow the progression of renal disease. Optimize blood pressure Optimize blood sugar control. Continue to avoid nephrotoxic agents including NSAIDs. Cr unchanged Mild secondary hyperparathyroidism with Vit D deficiency Cholecalceferol and follow iPTH May need calcitriol Needs renal replacement therapy in the near future. We will refer to IR for insertion of PD catheter. (2) Acute on chronic kidney failure: Code(s): N17.9 - Acute kidney failure, unspecified; N18.9 - Chronic kidney disease, unspecified Category: Medical Qualifiers: Acute renal failure type: unspecified Chronic kidney disease stage: stage 5, not on chronic dialysis Qualified Code(s): N17.9 - Acute kidney failure, unspecified; N18.5 - Chronic kidney disease, stage 5 (3) Essential hypertension: Code(s): I10 - Essential (primary) hypertension Category: Medical Plan: Blood pressure is well controlled we will keep him on the current medications Encouraged him to stay on low-sodium diet Goal is to maintain blood pressure less than 130 mm of mercury systolic. No absolute indication for diuretic yet (4) Type 2 diabetes mellitus with diabetic chronic kidney disease: Code(s): E11.22 - Type 2 diabetes mellitus with diabetic chronic kidney disease Category: Medical Qualifiers: Chronic kidney disease stage: stage 3 (moderate) Chronic kidney disease stage 3 subtype: stage 3b (GFR 30-44) Diabetes mellitus [facility] insulin use: with intermediate designer use Qualified Code(s): E11.22 - Type 2 diabetes mellitus with diabetic chronic kidney disease; N18.32 - Chronic kidney disease, stage 3b; Z79.4 - [facility] (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 of insulin Plan: Goal is to maintain A1c less than 7%. Encouraged to increase physical activity as well. Defer management to PCP (5) Anemia due to chronic kidney disease: Comment: Most likely due to erythropoietin deficiency iron TIBC ferritin B12 and folate. are normal Code(s): N18.9 - Chronic kidney disease, unspecified; D63.1 - Anemia in chronic kidney disease Category: Medical Plan: If hemoglobin drops further I will initiate Retacrit (6) Metabolic acidosis: Code(s): E87.20 - Acidosis, unspecified Category: Medical Plan: Continue Sodium bicarbonate 650 mg Decrease dose to twice a day h/o hyperkalemia in the setting of CKD. Discussed and gave instructions for low K diet Plan Need to rule out obstructive sleep apnea. He may require sleep evaluation I have discussed this with him. Referred to Sleep [facility] service Orders: Orders Parathyroid Hormone Intact 2 Weeks N18.5 - Chronic kidney disease, stage 5 Basic Metabolic Panel Today N18.5 - Chronic kidney disease, stage 5 Comprehensive Met. Panel Today N18.5 - Chronic kidney disease, stage 5 Parathyroid Hormone Intact Today N18.5 - Chronic kidney disease, stage 5 Complete Blood Count Auto Diff 2 Weeks N18.5 - Chronic kidney disease, stage 5 Comprehensive Met. Panel 2 Weeks N18.5 - Chronic kidney disease, stage 5 Referrals Interventional Radiology Referral N18.5 - Chronic kidney disease, stage 5 Medications: New sodium bicarbonate 650 mg PO BID 180 tabs 1RF Coding Level of Care Code New Pt Level 5 (63794) Diagnoses Chronic kidney disease, stage V N18.5 Acute on chronic kidney failure N17.9; N18.5 Acute renal failure type: unspecified Chronic kidney disease stage: stage 5, not on chronic dialysis Essential hypertension I10 Type 2 diabetes mellitus with stage 3b chronic kidney disease, with long-term current use of insulin E11.22; N18.32; Z79.4 Chronic kidney disease stage: stage 3 (moderate) Chronic kidney disease stage 3 subtype: stage 3b (GFR 30-44) Diabetes mellitus [facility] insulin use: with [facility] use Anemia due to chronic kidney disease N18.9; D63.1 Metabolic acidosis E87.20
[2023-12-19 10:36] VITALS: BP 150/60; PULSE 83; O2SAT 98; BMI 34.5
[2023-12-19 10:53] VITALS: BP 130/60
== END 2023-12-19 10:57 | disposition home or self-care (01) ==
PROVIDERS: PCP Internal Medicine; Visit Provider Internal Medicine Hypertension Specialist
DX: I12.0 Hypertensive chronic kidney disease with stage 5 chronic kidney disease or end stage renal disease (principal); E11.22 Type 2 diabetes mellitus with diabetic chronic kidney disease; N18.5 Chronic kidney disease, stage 5; N17.9 Acute kidney failure, unspecified; Z79.4 Long term (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 of insulin; D63.1 Anemia in chronic kidney disease; E87.21 Acute metabolic acidosis
CPT/HCPCS: 99214

== ENCOUNTER → 2023-12-19 10:32 | Outpatient (BNVA) | payer OTHER, SELFPAY | PROVIDERS: PCP Internal Medicine; Visit Provider Internal Medicine Hypertension Specialist | DX: N17.9 Acute kidney failure, unspecified (principal); I12.0 Hypertensive chronic kidney disease with stage 5 chronic kidney disease or end stage renal disease; N18.5 Chronic kidney disease, stage 5; E11.22 Type 2 diabetes mellitus with diabetic chronic kidney disease; D63.1 Anemia in chronic kidney disease; E87.20 Acidosis, unspecified; Z79.4 Long term (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 of insulin | CPT/HCPCS: 99212 ==

== ENCOUNTER 2024-01-02 12:41 | Outpatient (REF) | payer OTHER, SELFPAY ==
[2024-01-02 13:00] LABS: MANUAL DIFF FLAG NO
[2024-01-02 13:21] LABS: Basophils Percent Auto 0.8 % (0-2); Eosinophils Absolute Auto 0.2 X10*3/uL (0.0-0.4); Eosinophils Percent Auto 3.9 % (0-4); Hematocrit 23.8 % (42.0-52.0); Hemoglobin 7.6 g/dl (14.0-18.0); Imm Gran Abs Auto 0.03 X10*3/uL (0.00-0.03); Imm Gran Pct Auto 0.6 % (0.0-0.4); Lymphocytes Absolute Auto 0.9 X10*3/uL (1.2-4.9); Lymphocytes Percent Auto 18.9 % (20-40); Mean Corpuscular HGB Conc 31.9 g/dl (31.0-36.0); Mean Corpuscular Hemoglobin 28.6 pg (27.0-33.0); Mean Corpuscular Volume 89.5 fL (80.0-98.0); Mean Platelet Volume 9.5 fL (9.4-12.4); Monocytes Absolute Auto 0.5 X10*3/uL (0.1-1.2); Monocytes Percent Auto 9.6 % (2-11); Neutrophils Absolute Auto 3.3 x10*3/uL (2.0-8.3); Neutrophils Percent Auto 66.2 % (45-73); Platelet Count 149 X10*3/uL (160-400); Red Blood Count 2.66 X10*6/uL (4.60-5.80); Red Cell Distribution Width 14.9 % (11.0-16.0); White Blood Count 4.9 X10*3/uL (4.8-10.8)
[2024-01-02 20:59] LABS: Alanine Aminotransferase 18 U/L (0-40); Albumin Level 3.8 g/dL (3.5-5.0); Alkaline Phosphatase 76 U/L (39-117); Anion Gap 16 (12-20); Aspartate Amino Transferase 18 U/L (5-37); Bilirubin Total 0.5 mg/dL (0.0-1.0); Blood Urea Nitrogen 45 mg/dL (9-16); Calcium 8.8 mg/dL (8.4-10.2); Carbon Dioxide 18 mmol/L (22-29); Chloride 111 mmol/L (96-108); Estimated Glomerular Filt Rate 14; Glucose Random 111 mg/dL (60-115); Potassium 3.9 mmol/L (3.3-5.1); Sodium 141 mmol/L (135-145); Total Protein 6.3 g/dL (6.5-8.0)
== END 2024-01-02 12:42 | disposition home or self-care (01) ==
LOC: HO.LAB 12:41
PROVIDERS: PCP Internal Medicine; Visit Provider Internal Medicine Hypertension Specialist
DX: N18.5 Chronic kidney disease, stage 5 (principal)
CPT/HCPCS: 36415; 80053; 83970; 85025

== ENCOUNTER 2024-01-05 11:43 | Outpatient (AMB) | payer OTHER, SELFPAY ==
[2024-01-05 11:43] VITALS: BP 154/52; PULSE 79; O2SAT 96; BMI 34.3
--- NOTE | 2024-01-05 11:43 | HO.NEPHOV ---
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 Howard had a serum creatinine of 5.0 with a EGFR of 12 mL/minute on 08/27/2023. In 2022 creatinine was 2.6 with a EGFR of 29 mL/minute. It appears that he has chronic kidney disease with a baseline of around 2.6 mg/dL. In 2020 he was hospitalized with Gram-positive bacteremia and he had acute kidney injury at the time. There is a history of noncompliance with medications and treatment. Overall diabetes mellitus has been suboptimally controlled with a hemoglobin A1c as high as 13%. Recent A1c is around 7.6%. He has mild diabetic retinopathy. He has nephrotic range proteinuria as well. Blood pressure has been difficult to control he has been on amlodipine 10 mg hydralazine 10 mg 3 times a day and lisinopril 20 mg once a day. Over the last few years he self medicated and increase the dose to 40 mg a day. There is episode of hyperkalemia at 6.1 back in June 2022. However the recent potassium was 4.8 mg/dL. As for the diet he eats a regular diet including high salt diet. He does not exercise regularly. No history of smoking or alcohol abuse although he socially drinks 1 or 2 drinks every couple of weeks. He tells me that his girlfriend has noticed that he has been snoring. In the past he has been referred for sleep evaluation which she did not follow through. 11/27/2023. Recently hospitalized at [facility]. He had acute kidney injury superimposed on CKD with hyperkalemia. He underwent emergency dialysis. There was some recovery of renal function and was taken off dialysis. He has been off dialysis for the last 2 weeks. He is currently nonoliguric During this admission he had CVA and had difficulty swallowing. He failed the swallowing evaluation and currently on puree diet. 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 He had severe anemia requiring blood transfusion. He received Epogen injections as well. Today he is accompanied by his family members. He is feeling much better appetite is fair no nausea or vomiting. No shortness of breath. No urinary symptoms. 12/19/2023. Overall doing better from his last visit no new issues He met with the dialysis nurse and currently being evaluated for peritoneal dialysis 01/05/2024. Seen today for suboptimal blood pressure [facility] Medical History Metabolic acidosis Right foot ulcer Anxiety History of foot ulcer Obesity (BMI 30-39.9) Depression Rotator cuff arthropathy of left shoulder Vitamin D deficiency Allergic rhinitis Anemia Pure hypercholesterolemia Benign essential hypertension Diabetic polyneuropathy Type 2 diabetes mellitus with diabetic chronic kidney disease Erectile dysfunction Type 2 diabetes mellitus with hyperglycemia, with long-term current use of insulin Type 2 diabetes mellitus with diabetic polyneuropathy Type 2 diabetes mellitus with chronic kidney disease 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 LDL goal <70 Surgical History History of nasal surgery Family History Father Lung cancer Mother Hypertension Coronary artery disease CVD (cardiovascular disease) TIA (transient ischemic attack) Sister Diabetes Maternal Uncle Diabetes Other Mental health problem Social History Household Members: Family Housing: House Do you presently have visiting nurse or other home services: Yes Alcohol intake: current Alcohol intake frequency: holidays/special occasions only Comment: sister in room Patient Tobacco Use Status: Never used Tobacco e-Cigarette/Vaping Use: Never Used Second Hand Smoke Exposure: Yes service: No Current occupational status: unemployed Cognitive needs: Yes (wheelchair, walker) Hearing needs: No Vision needs: No Physical Exam Vital Signs: Last Vital Signs Pulse 79 01/05/24 11:43 BP 154/52 H 01/05/24 11:43 Pulse Ox 96 01/05/24 11:43 Oxygen Delivery Method Room Air 01/05/24 11:43 BMI result Body Mass Index 34.3 Neck Neck: Yes supple Resp Auscultation: clear to auscultation bilaterally Cardio Palpation: no palpable S3 Heart sounds: no rubs GI Palpation (GI): Soft to palpation Auscultation: normal bowel sounds Neuro Motor exam (neuro): no asterixis Results Reviewed Nephrology Results: Hgb 7.6 g/dl (14.0-18.0) L 01/02/24 WBC 4.9 X10*3/uL (4.8-10.8) 01/02/24 Plt Count 149 X10*3/uL (160-400) L 01/02/24 Sodium 141 mmol/L (135-145) 01/02/24 Potassium 3.9 mmol/L (3.3-5.1) 01/02/24 Chloride 111 mmol/L (96-108) H 01/02/24 Carbon Dioxide 18 mmol/L (22-29) L 01/02/24 BUN 45 mg/dL (9-16) H 01/02/24 Creatinine 4.48 mg/dL (0.5-1.4) H* 01/02/24 Calcium 8.8 mg/dL (8.4-10.2) 01/02/24 PTH Intact Pending 01/02/24 Urine Protein 300 (3+) mg/dL (Neg-Trace) H 11/11/23 Assessment & Plan Assessment & Plan (1) Chronic kidney disease, stage V: Comment: Most likely due to diabetic nephropathy. He has nephrotic range proteinuria. In the past basic serology was unremarkable. Code(s): N18.5 - Chronic kidney disease, stage 5 Category: Medical Plan: Goal is to slow the progression of renal disease. Optimize blood pressure Optimize blood sugar control. Continue to avoid nephrotoxic agents including NSAIDs. Cr unchanged Mild secondary hyperparathyroidism with Vit D deficiency Cholecalceferol and follow iPTH May need calcitriol Needs renal replacement therapy in the near future. Referred to IR for insertion of PD catheter. Scheduled placement on January 21 (2) Acute on chronic kidney failure: Code(s): N17.9 - Acute kidney failure, unspecified; N18.9 - Chronic kidney disease, unspecified Category: Medical Qualifiers: Acute renal failure type: unspecified Chronic kidney disease stage: stage 5, not on chronic dialysis Qualified Code(s): N17.9 - Acute kidney failure, unspecified; N18.5 - Chronic kidney disease, stage 5 (3) Essential hypertension: Code(s): I10 - Essential (primary) hypertension Category: Medical Plan: Blood pressure is well controlled we will keep him on the current medications Encouraged him to stay on low-sodium diet Goal is to maintain blood pressure less than 130 mm of mercury systolic. 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 Encouraged to increase physical activity as well. Defer management to PCP (5) Anemia due to chronic kidney disease: Comment: Most likely due to erythropoietin deficiency iron TIBC ferritin B12 and folate. are normal Code(s): N18.9 - Chronic kidney disease, unspecified; D63.1 - Anemia in chronic kidney disease Category: Medical Plan: If hemoglobin drops further I will initiate Retacrit (6) Metabolic acidosis: Code(s): E87.20 - Acidosis, unspecified Category: Medical Plan: Continue Sodium bicarbonate 650 mg Decrease dose to once a day h/o hyperkalemia in the setting of CKD. Discussed and gave instructions for low K diet Plan Need to rule out obstructive sleep apnea. He may require sleep evaluation I have discussed this with him. Referred to [facility] service Coding Level of Care Code Est Pt Level 3 (67618) Diagnoses Chronic kidney disease, stage V N18.5 Acute on chronic kidney failure N17.9; N18.5 Acute renal failure type: unspecified Chronic kidney disease stage: stage 5, not on chronic dialysis Essential hypertension I10 Type 2 diabetes mellitus with stage 3b chronic kidney disease, with long-term current use of insulin E11.22; N18.32; Z79.4 Diabetes mellitus sales and training specialist insulin use: with prison use Chronic kidney disease stage: stage 3 (moderate) Chronic kidney disease stage 3 subtype: stage 3b (GFR 30-44) Anemia due to chronic kidney disease N18.9; D63.1 Metabolic acidosis E87.20
== END 2024-01-05 12:06 | disposition home or self-care (01) ==
PROVIDERS: PCP Internal Medicine; Visit Provider Internal Medicine Hypertension Specialist
DX: I12.9 Hypertensive chronic kidney disease with stage 1 through stage 4 chronic kidney disease, or unspecified chronic kidney disease (principal); N18.5 Chronic kidney disease, stage 5; N17.9 Acute kidney failure, unspecified; E11.22 Type 2 diabetes mellitus with diabetic chronic kidney disease; N18.32 Chronic kidney disease, stage 3b; Z79.4 Long term (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 of insulin; N18.9 Chronic kidney disease, unspecified; D63.1 Anemia in chronic kidney disease; E87.20 Acidosis, unspecified
CPT/HCPCS: 99213

== ENCOUNTER → 2024-01-05 11:43 | Outpatient (BNVA) | payer OTHER, SELFPAY | PROVIDERS: PCP Internal Medicine; Visit Provider Internal Medicine Hypertension Specialist | DX: E11.22 Type 2 diabetes mellitus with diabetic chronic kidney disease (principal); I12.9 Hypertensive chronic kidney disease with stage 1 through stage 4 chronic kidney disease, or unspecified chronic kidney disease; N18.5 Chronic kidney disease, stage 5; N17.9 Acute kidney failure, unspecified; D63.1 Anemia in chronic kidney disease; E87.20 Acidosis, unspecified; Z79.4 Long term (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 of insulin | CPT/HCPCS: 99212 ==

== ENCOUNTER 2024-01-15 12:02 | Outpatient (AMB) | payer OTHER, SELFPAY ==
[2024-01-15 12:07] VITALS: BP 160/70; PULSE 76; O2SAT 98; BMI 34.5
--- NOTE | 2024-01-15 12:07 | MHC.PC.OV ---
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: Not Required per policy Accompanied by: Self / Same As Patient Allergies No Known Allergies Allergy (Verified 01/15/24 12:35) Medication List - Last Reconciled 01/15/24 by Michael Garcia MD amlodipine 5 mg PO DAILY atorvastatin 80 mg PO DAILY 90 days [Bed pads As directed] cholecalciferol (vitamin D3) 25 mcg PO DAILY [Commode As directed] flash glucose sensor (FreeStyle Lida 14 Day Sensor kit) USE DIRECTED EVERY 2 WEEKS guaifenesin 100 mg (5 mL) PO Q6H PRN 200 days hydralazine 100 mg (2 x 50 mg) PO TID insulin glargine (Lantus Solostar U-100 Insulin) 20 units subcut QAM insulin lispro (Humalog KwikPen (U-100) Insulin) 5 units (0.05 mL) subcut TIDAC mirtazapine 15 mg PO BEDTIME omeprazole 40 mg PO BID oxycodone 5 mg PO TID PRN oxycodone 5 mg PO BID-TID PRN 28 days pen needle, diabetic (BD Ultra-Fine Odette Pen Needle) 1 ea subcut QID Shower Chair As directed sodium bicarbonate 650 mg PO .QD walker As directed Tobacco use date assessed: 12/05/23 Dental Screening Dental Screen Date: 08/25/23 HPI Follow Up HPI Details Patient comes in today for his follow-up visit Since he was last seen by me in August 2023, he has had a lot of issues and problems that have occurred - he was admitted to [facility] back on 10/24/2023 and had a complicated hospital course Patient was initially admitted to the intensive care unit for diabetic ketoacidosis complicated by acute kidney injury on CKD stage 5, with hyperkalemia requiring emergent hemodialysis He was managed medically with insulin drip and emergent hemodialysis, with resolution of his DKA and hyperkalemia, after which she was then transferred to the medical floor He then developed acute hypoxia and fever and was treated empirically with IV Zosyn Hw was then also noted incidentally to have trouble swallowing and was immediately worked up for his dysphagia CT of the neck was done to rule out mechanical obstruction but this instead revealed acute to subacute embolic stroke MRI of the brain confirmed multiple locations of acute infarcts; echo with bubble study did not show any septal defect He was then seen by Neurology and was recommended dual antiplatelet Tx and statin Tx However, patient's hospital course was then complicated by syncope due to acute blood loss anemia from upper GI bleeding Antiplatelet Tx was then held, and patient required transfusion of 3 units of PRBC He was seen by GI, who felt that EGD at the time was too risky His H/H eventually stabilized on PPI Tx and this was continued on an outpatient basis with instructions to follow-up with GI for his GI bleeding His acute kidney injury appears to have stabilized with his emergent hemodialysis and he did not require any further dialysis session He was recommended to go to short-term rehab but patient declined and asked to be discharged home instead with home services He is currently still receiving PT/OT at home and feels that he is gradually improving with therapy States that he currently feels okay although his sister states that the patient appears depressed and he has an upcoming appointment with psychiatry sometime next week Patient presently denies any headaches or dizziness He denies any chest pains, no shortness of breath No nausea/ vomiting, no abdominal pain No change in bowel habits noted He needs his sodium bicarbonate Rx refilled Patient is also currently in the process of having a peritoneal dialysis catheter placed - he was seen by interventional radiology a couple of weeks ago and he is scheduled for catheter placement next week on 01/22/2024 He also has a follow-up appointment with Nephrology in about 3 weeks and when he will start peritoneal dialysis will then likely be decided His sister also adds that patient's blood sugar readings in the morning has been frequently running low, and at 1 point it went down to 46 mg/dL He is currently on Lantus 20 units in the morning and he usually gets 5 units of Humalog 3 times a day with meals, with an extra 2 units if blood sugar is over 200 mg/dL but his sister states that there are times when she would hold his Humalog due to low blood sugar readings FORMERLY [facility], [facility] Medical History Metabolic acidosis Right foot ulcer Anxiety History of foot ulcer Obesity (BMI 30-39.9) Depression Rotator cuff arthropathy of left shoulder Vitamin D deficiency Allergic rhinitis Anemia Pure hypercholesterolemia Benign essential hypertension Diabetic polyneuropathy Type 2 diabetes mellitus with diabetic chronic kidney disease Erectile dysfunction Type 2 diabetes mellitus with hyperglycemia, with long-term current use of insulin Type 2 diabetes mellitus with diabetic polyneuropathy Type 2 diabetes mellitus with chronic kidney disease 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 LDL goal <70 Surgical History History of nasal surgery Family History Father Lung cancer Mother Hypertension Coronary artery disease CVD (cardiovascular disease) TIA (transient ischemic attack) Sister Diabetes Maternal Uncle Diabetes Other Mental health problem Social History Household Members: Family Housing: House Do you presently have visiting nurse or other home services: Yes Alcohol intake: current Alcohol intake frequency: holidays/special occasions only Comment: sister in room Patient Tobacco Use Status: Never used Tobacco e-Cigarette/Vaping Use: Never Used Second Hand Smoke Exposure: Yes service: No Current occupational status: unemployed Cognitive needs: Yes (wheelchair, walker) Hearing needs: No Vision needs: No Questionnaire Thrive Questionnaire Date Thrive assessed: 11/12/23 ANAHI-7 AMB Questionnaire ANAHI-7 Date ANAHI - 7 assessed: 12/05/23 Source: Developed by Drs. Zay Babb, Genesis Aiken, Tony Garcia and colleagues, with an educational phoenix from [employer]. Review of Systems Const Denies chills, Reports fatigue, Denies fever(s), Reports frequent falls and Denies headache(s) ENT Denies dysphagia, Denies dizziness, Denies otalgia, Denies headache(s), Denies neck pain, Denies odynophagia and Denies sore throat Card Denies chest pain, Denies rapid heart rate, Denies palpitations and Denies dyspnea Resp Denies cough, Denies dyspnea and Denies wheezing GI Denies abdominal pain, Denies constipation, Denies dysphagia, Denies diarrhea, Denies nausea, Denies odynophagia and Denies vomiting Denies difficulty urinating, Denies nocturia and Denies urinary frequency Musc Denies back pain, Denies arthralgias and Denies neck pain Skin/Breast Denies rash Neuro Details: (+) chronic pain over both lower extremities, especially in both feet, due to neuropathy; (+) left-sided weakness Reports burning sensations (occasionally, in both feet), Denies dizziness, Reports frequent falls and Denies headache(s) Psych Reports depression Endo Reports fatigue and Denies palpitations Aller/Immun Denies wheezing Physical exam (Primary Care) Vital Signs: Last Vital Signs Pulse 76 01/15/24 12:07 BP 160/70 H 01/15/24 12:07 Pulse Ox 98 01/15/24 12:07 Oxygen Delivery Method Room Air 01/15/24 12:07 BMI result Body Mass Index 34.5 Tobacco/Smoking Status: Tobacco use Status Tobacco use date assessed 12/05/23 01/15/24 12:08 Patient Tobacco Use Status Never used Tobacco 01/15/24 12:08 e-Cigarette/Vaping Use Never Used 01/15/24 12:08 Thrive Assessment: Date of Thrive Assessment Date Thrive assessed 11/12/23 01/15/24 12:08 Const General: no acute distress and alert Orientation/consciousness: patient oriented x3 Limitations: wheelchair HENMT Ears: TM's normal bilaterally and EAC's normal Throat: Yes posterior oropharynx normal and Yes tonsils normal Neck Neck: Yes no lymphadenopathy and Yes supple Thyroid: Thyroid normal Resp Auscultation: clear to auscultation bilaterally, no rales and no wheezes Cardio Rate: regular rate Rhythm: regular rhythm Heart sounds: no murmurs GI Palpation (GI): Soft to palpation and nontender Auscultation: normal bowel sounds General: Yes no CVA tenderness Back/Spine/Pelvis Back: no CVA tenderness Thoracic/Lumbar Spine: No lumbar spinal tenderness Skin Rashes: no rashes Neuro Other: (+) left-sided weakness General: patient oriented x3 Gait exam (Neuro): Assistive device used Extrem General: Yes no clubbing, cyanosis or edema Results AMB Hemoglobin A1c AMB Hemoglobin A1c 5.9 % Last Edit by UGO Salvador on 01/15/24 12:25 Results Reviewed Results Reviewed: Laboratory Last Values Hgb A1c (Clinic) 5.9 % (4.0-6.0) 01/15/24 12:09 Laboratory Tests 01/02/24 12:58 WBC 4.9 Hgb 7.6 L Hct 23.8 L Plt Count 149 L Sodium 141 Potassium 3.9 Creatinine 4.48 H* Estimated GFR 14 Random Glucose 111 AST 18 ALT 18 Assessment and Plan Assessment & Plan (1) Type 2 diabetes mellitus with chronic kidney disease: Code(s): E11.22 - Type 2 diabetes mellitus with diabetic chronic kidney disease Qualifiers: Chronic kidney disease stage: stage 3 (moderate) Chronic kidney disease stage 3 subtype: stage 3b (GFR 30-44) Diabetes mellitus terminal supervisor insulin use: with terminal supervisor use Qualified Code(s): E11.22 - Type 2 diabetes mellitus with diabetic chronic kidney disease; N18.32 - Chronic kidney disease, stage 3b; Z79.4 - buttermaker continuous churn (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 of insulin Plan: His in-office HgbA1c done today is at 5.9% Reinforced diabetic diet Will have patient lower his Lantus from 20 units to 15 units once a day Continue Humalog 5 units 3 times a day with meals, with under additional 2 units if blood sugar reading is over 200 mg/dL (2) 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: Code(s): I63.12 - Cerebral infarction due to embolism of basilar artery Plan: His brain MRI done on 10/29/2023 revealed (+) large acute infarct 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, with also multiple embolic infarcts bilaterally He currently still has dysphagia as well as mild left-sided weakness and requires assistance when ambulating but mobility is also still limited by weakness and easy fatigability He is presently on a pureed diet due to his residual dysphagia He is still receiving home PT/OT at present and will be switching over to in-house physical therapy soon He was initially started on dual anti-platelet therapy with Aspirin and Plavix on the recommendation of Neurology but patient later developed GI bleeding requiring blood transfusions Both Aspirin and Plavix were stopped and patient is currently still on no anticoagulation or anti-platelet therapy due to his GI bleed Continue Atorvastatin 80 mg QD Will have patient recheck his labs and fasting lipids in 3 months for follow-up (3) Chronic kidney disease, stage V: Comment: Most likely due to diabetic nephropathy. He has nephrotic range proteinuria. In the past basic serology was unremarkable. 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 are normal Code(s): N18.9 - Chronic kidney disease, unspecified; D63.1 - Anemia in chronic kidney disease Qualifiers: Chronic kidney disease stage: stage 5, not on chronic dialysis Qualified Code(s): N18.5 - Chronic kidney disease, stage 5; D63.1 - Anemia in chronic kidney disease Plan: He has received blood transfusions as well as injections of Epogen while he was in the hospital His most recent H/H was at 7.6/23.8 a couple of weeks ago on 01/02/2024 Per Nephrology, he will be restarted on erythropoietin injections if his H/H drops any further Will have him recheck his CBC for follow up in a couple of weeks prior to his next follow up appointment with nephrology (5) GI bleed: Code(s): K92.2 - Gastrointestinal hemorrhage, unspecified Qualifiers: GI bleed type/associated pathology: unspecified gastrointestinal hemorrhage type Qualified Code(s): K92.2 - Gastrointestinal hemorrhage, unspecified Plan: Resolved but he remains at high risk for recurrence so anti-platelet therapy was not resumed despite his embolic CVA back in October 2023 He is currently still anemic, with H/H of 7.6/23.8 on his labs done a couple of weeks ago - will continue to monitor his CBC closely Continue Omeprazole 40 mg BID Follow up with GI as scheduled (6) Benign essential hypertension: Code(s): I10 - Essential (primary) hypertension Plan: Reinforced low sodium diet - goal is systolic BP of 120 mm or less Continue Amlodipine 5 mg QD and Hydralazine 100 mg TID (7) Vitamin D deficiency: Code(s): E55.9 - Vitamin D deficiency, unspecified Plan: Continue Vitamin D3 1000 units QD (8) Diabetic polyneuropathy: Code(s): E11.42 - Type 2 diabetes mellitus with diabetic polyneuropathy Qualifiers: Diabetes mellitus type: type 2 Qualified Code(s): E11.42 - Type 2 diabetes mellitus with diabetic polyneuropathy Plan: Continue Oxycodone 5 mg BID-TID PRN for pain (9) Adjustment disorder: Code(s): F43.20 - Adjustment disorder, unspecified Qualifiers: Adjustment disorder type: with depressed mood Qualified Code(s): F43.21 - Adjustment disorder with depressed mood Plan: Continue Mirtazapine 15 mg Q HS Follow up with psychiatry as scheduled - he has appointment with psychiatry next week Plan Follow up in 3 months Orders: Orders AMB Hemoglobin A1c Today Michael Garcia MD E11.22 - Type 2 diabetes mellitus with diabetic chronic kidney disease, N18.32 - Chronic kidney disease, stage 3b, Z79.4 - residential (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 of insulin Comprehensive Met. Panel 01/31/24 Michael Garcia MD D63.1 - Anemia in chronic kidney disease, N18.5 - Chronic kidney disease, stage 5, N18.9 - Chronic kidney disease, unspecified Complete Blood Count Auto Diff 3 Months Michael Garcia MD D64.9 - Anemia, unspecified Comprehensive [place]. Panel Fast 3 Months Michael Garcia MD E78.00 - Pure hypercholesterolemia, unspecified Hemoglobin A1c 3 Months Michael Garcia MD E11.9 - Type 2 diabetes mellitus without complications Complete Blood Count Auto Diff 01/31/24 Michael Garcia MD D64.9 - Anemia, unspecified Lipid Panel 3 Months Michael Garcia MD E78.00 - Pure hypercholesterolemia, unspecified Referrals Podiatry Referral Michael Garcia MD E11.22 - Type 2 diabetes mellitus with diabetic chronic kidney disease, N18.32 - Chronic kidney disease, stage 3b, Z79.4 - residential (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 of insulin Medications: Changed From sodium bicarbonate 650 mg PO ONCE To sodium bicarbonate 650 mg PO .QD Stone Ulloa MD From insulin glargine (Lantus Solostar U-100 Insulin) 20 units subcut QAM E11.22 - Type 2 diabetes mellitus with diabetic chronic kidney disease To insulin glargine (Lantus Solostar U-100 Insulin) 15 units subcut QAM E11.22 - Type 2 diabetes mellitus with diabetic chronic kidney disease Michael Garcia MD Coding Level of Care Code Est Pt Level 4 (77278) Complex EM visit Add On G2211 Diagnoses Type 2 diabetes mellitus with stage 3b chronic kidney disease, with long-term current use of insulin E11.22; N18.32; Z79.4 Chronic kidney disease stage: stage 3 (moderate) Chronic kidney disease stage 3 subtype: stage 3b (GFR 30-44) Diabetes mellitus mcfp insulin use: with terminal supervisor use 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 I63.12 Chronic kidney disease, stage V N18.5 Anemia due to stage 5 chronic kidney disease, not on chronic dialysis N18.5; D63.1 Chronic kidney disease stage: stage 5, not on chronic dialysis Gastrointestinal hemorrhage, unspecified gastrointestinal hemorrhage type K92.2 GI bleed type/associated pathology: unspecified gastrointestinal hemorrhage type Benign essential hypertension I10 Vitamin D deficiency E55.9 Diabetic polyneuropathy associated with type 2 diabetes mellitus E11.42 Diabetes mellitus type: type 2 Adjustment disorder with depressed mood F43.21 Adjustment disorder type: with depressed mood
== END 2024-01-15 12:44 | disposition home or self-care (01) ==
PROVIDERS: PCP Internal Medicine; Visit Provider Internal Medicine
DX: E11.22 Type 2 diabetes mellitus with diabetic chronic kidney disease (principal)
CPT/HCPCS: 83036; 99214; G2211

== ENCOUNTER 2024-01-30 15:01 | Outpatient (AMB) | payer OTHER, SELFPAY ==
[2024-01-30 15:17] VITALS: BP 140/68; PULSE 76; O2SAT 96; BMI 34.3
--- NOTE | 2024-01-30 15:17 | A.OFFVIS_ITS ---
Vital Signs 01/30/24 15:17 Height 5 ft 7 in Weight 219 lb BMI 34.3 BP 140/68 H Blood Pressure Location Rt brachial Position Sitting Pulse 76 Pulse Source Pulse Oximeter Pulse Oximetry (%) 96 Intake Visit Reasons: ED f/u Intake Note: Howard presents to the office today for an ED follow up. Pt states he is haing some pain in his groin area after his recent procedure. Allergies No Known Allergies Allergy (Verified 01/30/24 15:19) HPI Comments Details: 53-year-old gentleman with prolonged hospitalization over the summer for DKA, renal failure, embolic infarct in the left cerebral territory who was seen in consultation for acute on chronic anemia and is here for post-discharge follow up. Sister and COMMERCIAL BAKER HELPER in attendance. Pt seaterd in wheelchair and minimally engages. Sister answers most of the questions. Reports recent insertion of PD catheter last week in anticipation of BAKED AND GRAPHITE INSPECTOR so he has some discomfort around that area but otherwise no abd pain, N,V, D. Stools are formed and yellow/brown. No blood noted. No melena. Pt does not report any chest pain. Has occ shortness of breath which is worse on days hes only urinated once/twice. He is being followed by [facility] Nephrology for stage V CKD. Received epogen while he was admitted but has not needed them recently. Iron panel in September 2023 was wnl. Pt also has residual dysphagia post stroke and mechanically modified diet. He has never had a screening colo. COUNTS INCLUDE 234 BEDS AT THE [facility] Medical History Metabolic acidosis Right foot ulcer Anxiety History of foot ulcer Obesity (BMI 30-39.9) Depression Rotator cuff arthropathy of left shoulder Vitamin D deficiency Allergic rhinitis Anemia Pure hypercholesterolemia Benign essential hypertension Diabetic polyneuropathy Type 2 diabetes mellitus with diabetic chronic kidney disease Erectile dysfunction Type 2 diabetes mellitus with hyperglycemia, with long-term current use of insulin Type 2 diabetes mellitus with diabetic polyneuropathy Type 2 diabetes mellitus with chronic kidney disease 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 LDL goal <70 Surgical History History of nasal surgery Family History Father Lung cancer Mother Hypertension Coronary artery disease CVD (cardiovascular disease) TIA (transient ischemic attack) Sister Diabetes Maternal Uncle Diabetes Other Mental health problem Social History Household Members: Family Housing: House Do you presently have visiting nurse or other home services: Yes Alcohol intake: current Alcohol intake frequency: holidays/special occasions only Comment: sister in room Patient Tobacco Use Status: Never used Tobacco e-Cigarette/Vaping Use: Never Used Second Hand Smoke Exposure: Yes service: No Current occupational status: unemployed Cognitive needs: Yes (wheelchair, walker) Hearing needs: No Vision needs: No Review of Systems Const All systems reviewed & are unremarkable except as noted in HPI and below Physical Exam Vital Signs: Last Vital Signs Pulse 76 01/30/24 15:17 BP 140/68 H 01/30/24 15:17 Pulse Ox 96 01/30/24 15:17 BMI result Body Mass Index 34.3 Middle aged male Mild pallor Nonicteric Clean dry dressing on abd, nontender significant peripheral edema seated in wheelchair A/Ox3, answers questions appropriately Assessment & Plan Assessment & Plan (1) Anemia: Code(s): D64.9 - Anemia, unspecified Category: Medical Qualifiers: Anemia type: unspecified type Qualified Code(s): D64.9 - Anemia, unspecified (2) Chronic kidney disease, stage V: Code(s): N18.5 - Chronic kidney disease, stage 5 Category: Medical (3) 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 Most likely 2/2 CKD and erythropoetin deficiency. Will check repeat CBC with iron, B12 and folate panel to guide etiology. However pt will need a bidirectional endoscopy regardless in the near future even if he does not have ANGEL. He is overdue for screening colo and needs EGD to complete eval for dysphagia, although likely neurogenic. Since he may require BAKED AND GRAPHITE INSPECTOR imminently, we will wait to book these procedures to allow time to establish PD sessions and for optimization of volume status. 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
== END 2024-01-30 15:46 | disposition home or self-care (01) ==
PROVIDERS: PCP Internal Medicine; Visit Provider Internal Medicine
DX: D64.9 Anemia, unspecified (principal); N18.5 Chronic kidney disease, stage 5; I63.12 Cerebral infarction due to embolism of basilar artery; R13.10 Dysphagia, unspecified
CPT/HCPCS: 99214

== ENCOUNTER → 2024-01-30 15:01 | Outpatient (BNVA) | payer OTHER, SELFPAY | PROVIDERS: PCP Internal Medicine; Visit Provider Internal Medicine | DX: R13.10 Dysphagia, unspecified (principal); D64.9 Anemia, unspecified; N18.5 Chronic kidney disease, stage 5; Z86.73 Personal history of transient ischemic attack (TIA), and cerebral infarction without residual deficits | CPT/HCPCS: 99212 ==

== ENCOUNTER 2024-02-03 14:48 | Outpatient (REF) | payer OTHER, SELFPAY ==
[2024-02-03 15:31] LABS: MANUAL DIFF FLAG NO
[2024-02-03 15:32] LABS: Appearance Urine Clear; Color Urine Yellow; Glucose Urine UA Negative (Negative); Leukocyte Esterase Urine Negative (Negative); Nitrite Urine Negative (Negative); UMIC TRIGGER UACC YES; Urine Blood Negative (Negative); Urine Ketones Negative (Negative); Urine Protein 100 (2+) mg/dL (Neg-Trace)
[2024-02-03 15:37] LABS: Bacteria Urine None Seen (None Seen); Hyaline Casts Urine 0-2 /LPF (0-2); RBC Urine 0-2 /HPF (0-2); Squamous Epithelial Cell Urine 0-2 /HPF (0-2); WBC Urine 0-5 /HPF (0-5)
[2024-02-03 16:25] LABS: Basophils Percent Auto 0.6 % (0-2); Eosinophils Absolute Auto 0.3 X10*3/uL (0.0-0.4); Eosinophils Percent Auto 5.2 % (0-4); Hematocrit 23.5 % (42.0-52.0); Hemoglobin 7.6 g/dl (14.0-18.0); Imm Gran Abs Auto 0.02 X10*3/uL (0.00-0.03); Imm Gran Pct Auto 0.4 % (0.0-0.4); Lymphocytes Absolute Auto 1.3 X10*3/uL (1.2-4.9); Lymphocytes Percent Auto 25.6 % (20-40); Mean Corpuscular HGB Conc 32.3 g/dl (31.0-36.0); Mean Corpuscular Volume 89.7 fL (80.0-98.0); Mean Platelet Volume 9.9 fL (9.4-12.4); Monocytes Absolute Auto 0.5 X10*3/uL (0.1-1.2); Monocytes Percent Auto 10.1 % (2-11); Neutrophils Absolute Auto 2.9 x10*3/uL (2.0-8.3); Neutrophils Percent Auto 58.1 % (45-73); Platelet Count 178 X10*3/uL (160-400); Red Blood Count 2.62 X10*6/uL (4.60-5.80); Red Cell Distribution Width 15.7 % (11.0-16.0)
[2024-02-03 16:48] LABS: Parathyroid Hormone Intact 182.7 pg/mL (8.7-77.1)
[2024-02-03 17:01] LABS: Ferritin 234 ng/mL (20-250)
[2024-02-03 17:02] LABS: Alanine Aminotransferase 12 U/L (0-40); Albumin Level 3.9 g/dL (3.5-5.0); Alkaline Phosphatase 78 U/L (39-117); Anion Gap 14 (12-20); Aspartate Amino Transferase 18 U/L (5-37); Bilirubin Total 0.4 mg/dL (0.0-1.0); Blood Urea Nitrogen 56 mg/dL (9-16); Calcium 9.1 mg/dL (8.4-10.2); Carbon Dioxide 21 mmol/L (22-29); Chloride 112 mmol/L (96-108); Estimated Glomerular Filt Rate 12; Glucose Random 133 mg/dL (60-115); Iron 44 mcg/dL (45-160); Percent Iron Saturation 19 % (15-50); Potassium 3.9 mmol/L (3.3-5.1); Sodium 143 mmol/L (135-145); Total Iron Binding Capacity 227 mcg/dL (228-428); Total Protein 6.7 g/dL (6.5-8.0); Unsaturated Iron Binding 183 ug/dL
[2024-02-03 17:17] LABS: Folate 7.6 ng/mL (> or = 4.0); Vitamin B12 406 pg/mL (200-900)
[2024-02-04 08:00] LABS: HBS Num1 0.74 mIU/mL (0-7.99); HBc Num1 0.15 S/CO (0.00-0.79); Hepatitis B Core Antibody Nonreactive (Nonreactive); Hepatitis B Surface Antigen Negative (Negative); ~HepC Num1 0.18 S/CO (0.00-0.79); ~Hepatitis B Surface Antibody NONREACTIVE (Nonreactive); ~Hepatitis C Antibody Nonreactive (Nonreactive)
== END 2024-02-03 14:49 | disposition home or self-care (01) ==
LOC: HO.LAB 14:48
PROVIDERS: Absent Provider Internal Medicine Hypertension Specialist; PCP Internal Medicine; Visit Provider Internal Medicine
DX: N18.5 Chronic kidney disease, stage 5 (principal); D63.1 Anemia in chronic kidney disease
CPT/HCPCS: 36415; 80053; 81001; 82607; 82728; 82746; 83540; 83970; 85025; 86704; 86706; 86803; 87340

== ENCOUNTER 2024-02-05 09:25 | Emergency (ER) | payer OTHER, SELFPAY ==
--- NOTE | ~2024-02-05 | CT_ITS ---
EXAMINATION: CT ABDOMEN AND PELVIS WITHOUT CONTRAST CLINICAL INFORMATION: 53-year-old male with severe abdominal pain and constipation COMPARISON: November 11, 2023 TECHNIQUE: Multidetector volumetric imaging was performed from the superior aspect of the liver through the pubic symphysis. Sagittal and coronal reformatted images were obtained on the technologist's workstation. This CT examination was performed using dose optimization techniques as appropriate, variously including the following: *Automated exposure control *Adjustment of mA and/or kV according to patient size (this includes techniques or standardized protocols for targeted exams where dose is matched to indication/reason for exam; i.e. extremities or head) *Use of iterative reconstruction technique DLP: 688 mGy-cm FINDINGS: LUNG BASES: There is pleural effusion and consolidation at the right lung base and there is small pleural effusion at the left lung base LIVER, GALLBLADDER, AND BILIARY TREE: The liver is normal in size, shape, and attenuation. No focal hepatic lesion or biliary ductal dilatation is present. The gallbladder is unremarkable with no evidence of radiopaque gallstones, gallbladder wall thickening, or obvious pericholecystic inflammatory changes. PANCREAS: Unremarkable. SPLEEN: Unremarkable. ADRENAL GLANDS: Unremarkable. KIDNEYS AND URETERS: There is an orthopedic cyst in the right kidney measured 3.5 cm in mild hydroureteronephrosis on the left BLADDER: Unremarkable. GASTROINTESTINAL TRACT: There is peritoneal dialysis tube in the left side of abdomen. There is moderate constipation. Normal appendix visualized no evidence of diverticulitis or diverticulosis. ABDOMINAL WALL: No significant hernia is appreciated. LYMPH NODES: Normal. VASCULAR: Unremarkable. PELVIC VISCERA: Unremarkable. OSSEOUS STRUCTURES: Unremarkable. CT/CT abdomen pelvis wo IV con IMPRESSION: 1. Moderate constipation. 2. Right pleural effusion and consolidation at the right lung base and small pleural effusion at the left lung base. 3. Right renal cyst. 4. Mild hydroureteronephrosis on the left. 5. Peritoneal dialysis tube in the left side of abdomen. Fleischner guidelines were followed. Electronically signed by: Catarina Chapa MD 02/05/2024 02:37 PM EDT
--- NOTE | 2024-02-05 09:32 | ED_ITS ---
HPI - General Adult General Chief complaint: Abdominal Pain Stated complaint: ABD PAIN,BACK PAIN,BLE EDEMA,N/V PER EMS Time Seen by Provider: 02/05/24 09:29 Source: patient and family (sister ) Mode of arrival: ambulatory Limitations: other (poor hstorian ) History of Present Illness ED Provider: Tamela DING HPI narrative: 53 year old male hx of adjustment disorder, HTN, diabetes, neuropathy, V CKD (baseline creatinine 5), HLD, anemia, anxiety, depression, recently discharged from our facility on 11/07 s/p DKA complicated by NATALIA requiring emergent hemodialysis and subacute embolic stroke ( w/ risidual dyphagia) started on antiplatelet therapy complicated by acute blood loss anemia, presenets to the emergency department with nauseam, vomiting, abdominal pain, difficulty w/ bowel movments, fatigue, malaise, mylagias, dyspnea ongoing for the past day worsening. Denies fevers, chills, cp, hemtatemisis, weakness, changes in urination Patient has a peritoneal dialysis port but has not yet used it for dialysis Related Data Home Medications ?Medication ?Instructions ?Recorded ?Confirmed oxycodone 5 mg tablet 5 mg PO TID PRN severe pain 10/24/23 01/15/24 amlodipine 5 mg tablet 5 mg PO DAILY 11/27/23 01/15/24 insulin glargine 100 unit/mL (3 15 unit subcut QAM 01/15/24 01/15/24 mL) subcutaneous pen (Lantus Solostar U-100 Insulin) sodium bicarbonate 650 mg tablet 650 mg PO .QD 01/15/24 01/15/24 Previous Rx's ?Medication ?Instructions ?Recorded cholecalciferol (vitamin D3) 25 25 mcg PO DAILY #90 caps 10/02/23 mcg (1,000 unit) capsule Shower Chair #1 ea 11/08/23 omeprazole 40 mg capsule,delayed 40 mg PO BID #180 caps 11/08/23 release walker #1 ea 11/08/23 Bed pads #1 ea 11/14/23 Commode #1 ea 11/14/23 guaifenesin 100 mg/5 mL oral liquid 100 mg (5 mL) PO Q6H PRN Cough 200 11/14/23 days #200 mL atorvastatin 80 mg tablet 80 mg PO DAILY 90 days #90 tabs 12/17/23 insulin lispro 100 unit/mL 5 unit (0.05 mL) subcut TIDAC #10 12/31/23 subcutaneous pen (Humalog KwikPen mL (U-100) Insulin) flash glucose sensor (FreeStyle #2 kits 01/06/24 Lida 14 Day Sensor kit) pen needle, diabetic 32 gauge x 1 ea subcut QID #120 ea 01/06/24 (BD Ultra-Fine Odette Pen Needle) hydralazine 100 mg tablet 100 mg PO TID 90 days #270 tabs 01/21/24 mirtazapine 15 mg tablet 15 mg PO BEDTIME 90 days #90 tabs 01/21/24 furosemide 40 mg tablet 40 mg PO DAILY #90 tabs 01/22/24 oxycodone 5 mg tablet 5 mg PO BID-TID PRN severe pain 28 02/02/24 days #84 tabs albuterol sulfate 90 mcg/actuation 2 inh inhalation Q4-6H PRN 02/05/24 breath activated powder inhaler shortness of breath or wheezing #1 ea azithromycin 250 mg tablet See Rx Instructions PO .COMPLEX #6 02/05/24 tabs lactulose 10 gram/15 mL oral 20 g (30 mL) PO BID #237 mL 02/05/24 solution prednisone 20 mg tablet 40 mg (2 x 20 mg) PO DAILY 5 days 02/05/24 #10 tabs Allergies Allergy/AdvReac Type Severity Reaction Status Date / Time No Known Allergies Allergy Verified 02/05/24 09:51 Review of Systems 2 Review of Systems: Yes all other systems are reviewed and are negative PMFSH Past Medical History Attestation statement: The following information was validated with the patient. Source: old records reviewed and nursing notes reviewed Medical History Metabolic acidosis Right foot ulcer Anxiety History of foot ulcer Obesity (BMI 30-39.9) Depression Rotator cuff arthropathy of left shoulder Vitamin D deficiency Allergic rhinitis Anemia Pure hypercholesterolemia Benign essential hypertension Diabetic polyneuropathy Type 2 diabetes mellitus with diabetic chronic kidney disease Erectile dysfunction Type 2 diabetes mellitus with hyperglycemia, with long-term current use of insulin Type 2 diabetes mellitus with diabetic polyneuropathy Type 2 diabetes mellitus with chronic kidney disease 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 LDL goal <70 Surgical History History of nasal surgery Family History Family History Father Lung cancer Mother Hypertension Coronary artery disease CVD (cardiovascular disease) TIA (transient ischemic attack) Sister Diabetes Maternal Uncle Diabetes Other Mental health problem Social History Social History Household Members: Family Housing: House Do you presently have visiting nurse or other home services: Yes Alcohol intake: current Alcohol intake frequency: holidays/special occasions only Comment: sister in room Patient Tobacco Use Status: Never used Tobacco e-Cigarette/Vaping Use: Never Used Second Hand Smoke Exposure: Yes Advance Directives: No Advance Directives Information Provided: No Do you have a plan to hurt others: No Plan service: No Current occupational status: unemployed Cognitive needs: Yes (wheelchair, walker) Hearing needs: No Vision needs: No Physical Exam ED Vital Signs: Vital Signs - 24 hr 02/05/24 09:50 02/05/24 12:13 02/05/24 14:14 Temperature 97.5 F Pulse Rate 80 77 72 Respiratory Rate 20 14 14 Blood Pressure 152/60 H 145/65 H 141/63 H Pulse Oximetry 98 94 95 Oxygen Delivery Method Room Air Room Air Room Air BMI result Body Mass Index 35.5 vss Appearance: Alert.? Oriented X3.? No acute distress.? Head: Normocephalic, atraumatic, no step-offs or deformities Eyes: Pupils equal, round and reactive to light.? CVS: Normal heart rate and rhythm.? Pulses normal.? Respiratory: No respiratory distress.? Breath sounds normal.? Abdomen: Soft and nontender.?+ peritoneal dialysis port to L side of abdomen and diffusely tender abdomen throughout Skin: Skin warm and dry.? Normal skin color.? Normal skin turgor.? Extremities: No lower extremity edema.? No calf ttp. 5/5 strength to bilateral upper and lower extremities Back: No midline tenderness, no C-spine tenderness, full range of motion, no CVA tenderness bilaterally Neuro: Oriented X 3.? No motor deficit.? No sensory deficit. CN 2-12 intact Course Reevaluation(s) Reevaluation #1: Patient has a white count with a shift. Chemistry with chronically elevated BUN and creatinine, glucose improved to 80. Will give IV insulin at this time. CT abdomen and pelvis showing moderate constipation right pleural effusion consolidation at right lung base and small pleural effusion at the left lung base mild hydroureter nephrosis on the left, right renal cyst peritoneal dialysis tube in the left side of abdomen. Patient will be given ceftriaxone at this time. UA pending Time: 14:46 Reevaluation #2: UA pending patient would like to leave. Patient is already on doxycycline prescribed to him by his global marketing coordinator who placed the peritoneal dialysis site port, he started it earlier this week will add azithromycin for pneumonia coverage. Will also give steroids and albuterol inhaler. Patient is adamant that he is not seeing in the hospital he does not want to stay and does not feel like he has to stay. Sister at bedside tearful trying to convince patient to stay. Patient understands risks of leaving such as . Patient decided to leave against medical advice. I took the time to go over risks of leaving against medical advice including . Patient verbalizes understanding of this. Advised them to come back if they change their mind. Time: 15:00 Medications Administered Discontinued Medications Generic Name Dose Route Start Last Admin Trade Name Freq PRN Reason Stop Dose Admin Insulin Human Lispro 10 unit 02/05/24 12:31 02/05/24 13:06 Insulin Lispro 100 Unit/Ml 3 Ml Vial SUBCUT 02/05/24 12:32 10 unit ONCE ONE Administration Morphine Sulfate 4 mg 02/05/24 09:35 02/05/24 09:46 Morphine Sulfate 4 Mg/Ml Cartridge IVPUSH 02/05/24 09:36 4 mg ONCE ONE Administration Protocol Medical Decision Making Medical Decision Making MDM Narrative: 53 yo m presents w/ severe abd pain w/ a/c fatigue, malaise, myalgias, dyspnea x1 day PE ?+ peritoneal dialysis port to L side of abdomen and diffusely tender abdomen throughout . RRR. CTA Hx and pe concerning for obstruction vs constipation vs viral illness. unlikley appendicitis, pancreatitis, cholecytitis, acute bacterial paritonitis. Will rule out pNA. Unlikley PE. Will also rule out UTI Plan- labs, imaging Differential Diagnosis Differential Diagnoses: The differential diagnosis associated with the presentation includes Hx and pe concerning for obstruction vs constipation vs viral illness. unlikley appendicitis, pancreatitis, cholecytitis, acute bacterial paritonitis. Will rule out pNA. Unlikley PE. Will also rule out UTI Admission/Observation Consideration of admission/observation: Escalation of care including admission/observation considered No indicaiton Lab Data MDM Lab Attestation statement: I reviewed the patient's lab results. 02/05/24 09:44 02/05/24 10:39 Labs: Lab Results 02/05/24 02/05/24 02/05/24 Range/Units 09:44 10:39 14:13 WBC 11.2 H (4.8-10.8) X10*3/uL RBC 2.60 L (4.60-5.80) X10*6/uL Hgb 7.6 L (14.0-18.0) g/dl Hct 23.0 L (42.0-52.0) % MCV 88.5 (80.0-98.0) fL MCH 29.2 (27.0-33.0) pg MCHC 33.0 (31.0-36.0) g/dl RDW 15.8 (11.0-16.0) % Plt Count 189 (160-400) X10*3/uL MPV 10.1 (9.4-12.4) fL Immature Gran % (Auto) 0.4 (0.0-0.4) % Neut % (Auto) 86.6 H (45-73) % Lymph % (Auto) 7.0 L (20-40) % Elk % (Auto) 5.4 (2-11) % Eos % (Auto) 0.2 (0-4) % Baso % (Auto) 0.4 (0-2) % Lymph # (Auto) 0.8 L (1.2-4.9) X10*3/uL Elk # (Auto) 0.6 (0.1-1.2) X10*3/uL Eos # (Auto) 0.0 (0.0-0.4) X10*3/uL Baso # (Auto) 0.1 (0.0-0.2) X10*3/uL Abs Immat Gran (auto) 0.05 H (0.00-0.03) X10*3/uL Absolute Neuts (auto) 9.7 H (2.0-8.3) x10*3/uL Absolute Nucleated RBC 0.000 (0.0-0.012) X10*3/uL Nucleated RBC % (auto) 0.0 (0.0-0.2) /100WBC PT 12.1 (11.1-13.3) SEC INR 1.0 (0.9-1.1) Sodium 140 (135-145) mmol/L Potassium 4.5 (3.3-5.1) mmol/L Chloride 108 (96-108) mmol/L Carbon Dioxide 19 L (22-29) mmol/L Anion Gap 18 (12-20) BUN 65 H (9-16) mg/dL Creatinine 5.57 H* (0.5-1.4) mg/dL Estim Creat Clear Calc 17.5 Estimated GFR 11 POC Glucose 280 H (60-115) mg/dL Random Glucose 316 H (60-115) mg/dL Calcium 8.8 (8.4-10.2) mg/dL Magnesium 1.7 (1.6-2.6) mg/dL Total Bilirubin 0.5 (0.0-1.0) mg/dL AST 18 (5-37) U/L ALT 14 (0-40) U/L Alkaline Phosphatase 75 (39-117) U/L Total Protein 6.7 (6.5-8.0) g/dL Albumin 4.1 (3.5-5.0) g/dL Lipase 33 (8-78) U/L Independent Interpretation I performed an independent interpretation of an: CT Scan Radiology Impression Discussion of test interpretation with radiology: I have reviewed the radiologist's reading. External Record Review External record reviewed: Inpatient record, Office record, Outpatient record, Prior outpatient labs, Prior outpatient radiology, Primary care record and Outside ED record Critical Care Time Critical Care Time Critical Care Time: Yes Total Critical Care Time: 35 Attestation: I attest to this time spent taking care of the patient, obtaining history, physical, reviewing labs, imaging, speaking to my attending, specialist or hospitalist. Discharge Plan Discharge Clinical Impression: Abdominal pain, Pneumonia, Hyperglycemia, Left against medical advice Patient Disposition: Home, Self-Care Instructions: Abdominal Pain (ED), Against Medical Advice (ED), Pneumonia (ED), Diabetic Hyperglycemia (ED) Additional Instructions: Take your medications as prescribed. If you were prescribed antibiotics today, it is important that you take your medication to their entirety, do not skip any doses, do not finish them early. Follow-up with your primary care provider this week. Return to the emergency department with new or worsening symptoms. Such as fevers, chills, chest pain, shortness of breath, nausea, vomiting, dizziness, headache, vision changes, lethargy In case of emergency call 911 Patient decided to leave against medical advice. I took the time to go over risks of leaving against medical advice including . Patient verbalizes understanding of this. Advised them to come back if they change their mind. CT/CT abdomen pelvis wo IV con IMPRESSION: 1. Moderate constipation. 2. Right pleural effusion and consolidation at the right lung base and small pleural effusion at the left lung base. 3. Right renal cyst. 4. Mild hydroureteronephrosis on the left. 5. Peritoneal dialysis tube in the left side of abdomen. Fleischner guidelines were followed. Prescriptions: New azithromycin 250 mg tablet See Rx Instructions .ROUTE .COMPLEX Qty: 6 0RF Rx Instructions: For 250 mg dose pack: take 500 mg today (day 1), then 250 mg for 4 days (days 2-5) prednisone 20 mg tablet 40 mg PO DAILY 5 Days Qty: 10 0RF albuterol sulfate 90 mcg/actuation aerosol powdr breath activated 2 inh inhalation Q4-6H PRN (Reason: shortness of breath or wheezing) Qty: 1 0RF No Action (DME) Commode See Rx Instructions .Route .MEDSUPPLY Qty: 1 0RF Rx Instructions: As directed (DME) Bed pads See Rx Instructions .Route .MEDSUPPLY Qty: 1 0RF Rx Instructions: As directed atorvastatin 80 mg tablet 80 mg PO DAILY 90 Days Qty: 90 1RF insulin lispro [Humalog KwikPen Insulin] 100 unit/mL insulin pen 5 unit subcut TIDAC Qty: 10 0RF Rx Instructions: + 2 units for bg over 200 (DME) FreeStyle Lida 14 Day Sensor Kit See Rx Instructions .ROUTE .COMPLEX Qty: 2 11RF Dose Instruction: USE DIRECTED EVERY 2 WEEKS Rx Instructions: USE DIRECTED EVERY 2 WEEKS pen needle, diabetic [BD Ultra-Fine Odette Pen Needle] 32 gauge x 5/32 needle 1 ea subcut QID Qty: 120 11RF hydralazine 100 mg tablet 100 mg PO TID 90 Days Qty: 270 1RF mirtazapine 15 mg tablet 15 mg PO BEDTIME 90 Days Qty: 90 1RF furosemide 40 mg tablet 40 mg PO DAILY Qty: 90 0RF oxycodone 5 mg tablet 5 mg PO BID-TID PRN (Reason: severe pain) 28 Days Qty: 84 0RF lactulose 10 gram/15 mL solution 20 g PO BID Qty: 237 0RF oxycodone 5 mg tablet 5 mg PO TID PRN (Reason: severe pain) omeprazole 40 mg capsule,delayed release(DR/EC) 40 mg PO BID Qty: 180 0RF (DME) walker Misc See Rx Instructions .Route Qty: 1 0RF Rx Instructions: As directed (DME) Shower Chair Misc See Rx Instructions .Route Qty: 1 0RF Rx Instructions: As directed guaifenesin 100 mg/5 mL Liquid 100 mg PO Q6H PRN (Reason: Cough) 200 Days Qty: 200 0RF sodium bicarbonate 650 mg tablet 650 mg PO .QD insulin glargine [Lantus Solostar U-100 Insulin] 100 unit/mL (3 mL) insulin pen 15 unit subcut QAM cholecalciferol (vitamin D3) 25 mcg (1,000 unit) capsule 25 mcg PO DAILY Qty: 90 2RF amlodipine 5 mg tablet 5 mg PO DAILY Referrals: Michael Garcia MD [Primary Care Provider] - 2 days Stand Alone Forms: Against Medical Advice Print Language: Nepali
[2024-02-05] MEDS: Morphine Sulfate 4 MG/ML CARTRIDGE IVPUSH (09:46)
[2024-02-05 09:47] LABS: MANUAL DIFF FLAG NO
[2024-02-05 09:49] LABS: Basophils Absolute Auto 0.1 X10*3/uL (0.0-0.2); Basophils Percent Auto 0.4 % (0-2); Eosinophils Percent Auto 0.2 % (0-4); Hemoglobin 7.6 g/dl (14.0-18.0); Imm Gran Abs Auto 0.05 X10*3/uL (0.00-0.03); Imm Gran Pct Auto 0.4 % (0.0-0.4); Lymphocytes Absolute Auto 0.8 X10*3/uL (1.2-4.9); Mean Corpuscular Hemoglobin 29.2 pg (27.0-33.0); Mean Corpuscular Volume 88.5 fL (80.0-98.0); Mean Platelet Volume 10.1 fL (9.4-12.4); Monocytes Absolute Auto 0.6 X10*3/uL (0.1-1.2); Monocytes Percent Auto 5.4 % (2-11); Neutrophils Absolute Auto 9.7 x10*3/uL (2.0-8.3); Neutrophils Percent Auto 86.6 % (45-73); Platelet Count 189 X10*3/uL (160-400); Red Cell Distribution Width 15.8 % (11.0-16.0); White Blood Count 11.2 X10*3/uL (4.8-10.8)
[2024-02-05 09:50] VITALS: BP 152/60; BP 158/62; PULSE 80; RESP 20; TEMP 36.4; O2SAT 97; O2SAT 98; BMI 35.5
[2024-02-05 09:54] LABS: Prothrombin Time 12.1 SEC (11.1-13.3)
[2024-02-05 11:10] LABS: Alanine Aminotransferase 14 U/L (0-40); Albumin Level 4.1 g/dL (3.5-5.0); Alkaline Phosphatase 75 U/L (39-117); Anion Gap 18 (12-20); Aspartate Amino Transferase 18 U/L (5-37); Bilirubin Total 0.5 mg/dL (0.0-1.0); Blood Urea Nitrogen 65 mg/dL (9-16); Calcium 8.8 mg/dL (8.4-10.2); Carbon Dioxide 19 mmol/L (22-29); Chloride 108 mmol/L (96-108); Creatinine Clr Calc Pharmacy 17.5; Estimated Glomerular Filt Rate 11; Glucose Random 316 mg/dL (60-115); Lipase 33 U/L (8-78); Magnesium 1.7 mg/dL (1.6-2.6); Potassium 4.5 mmol/L (3.3-5.1); Sodium 140 mmol/L (135-145); Total Protein 6.7 g/dL (6.5-8.0)
[2024-02-05 12:13] VITALS: BP 145/65; PULSE 77; RESP 14; O2SAT 94
[2024-02-05] MEDS: Insulin Lispro 100 UNIT/ML 3 ML VIAL 10 UNIT SUBCUT (13:06)
[2024-02-05 14:14] VITALS: BP 141/63; PULSE 72; RESP 14; O2SAT 95
[2024-02-05 14:29] LABS: Glucose, Whole Blood 280 mg/dL (60-115)
--- NOTE | 2024-02-05 15:19 | PC.NURSE ---
provider and RN to discuss the need to stay for IV antibiotics. patient adamant about leaving, aware of risks and need to return to the hospital.
[2024-02-05 15:39] VITALS: BP 141/63; PULSE 72; RESP 14; TEMP 36.4; O2SAT 95
== END 2024-02-05 15:40 | disposition home or self-care (01) ==
PROVIDERS: Physician Assistant; Emergency Provider Emergency Medicine; PCP Internal Medicine
DX: R10.9 Unspecified abdominal pain (principal); J18.9 Pneumonia, unspecified organism; E11.65 Type 2 diabetes mellitus with hyperglycemia; K59.00 Constipation, unspecified; R11.2 Nausea with vomiting, unspecified; E11.22 Type 2 diabetes mellitus with diabetic chronic kidney disease; I12.0 Hypertensive chronic kidney disease with stage 5 chronic kidney disease or end stage renal disease; N18.5 Chronic kidney disease, stage 5; Z99.2 Dependence on renal dialysis; E78.00 Pure hypercholesterolemia, unspecified; Z79.4 Long term (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 of insulin; Z79.02 Long term (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 of antithrombotics/antiplatelets; Z79.899 Other long term (current) drug therapy
CPT/HCPCS: 36415; 74176; 80053; 82947; 83690; 83735; 85025; 85610; 96374; 99284; J2270

== ENCOUNTER → 2024-02-09 11:42 | Outpatient (BNVA) | payer OTHER, SELFPAY | PROVIDERS: PCP Internal Medicine; Visit Provider Internal Medicine Hypertension Specialist ==

== ENCOUNTER 2024-02-20 12:55 | Outpatient (REF) | payer OTHER, SELFPAY ==
[2024-02-20 14:25] LABS: Alanine Aminotransferase 22 U/L (0-40); Albumin Level 3.9 g/dL (3.5-5.0); Alkaline Phosphatase 65 U/L (39-117); Anion Gap 15 (12-20); Aspartate Amino Transferase 16 U/L (5-37); Bilirubin Total 0.5 mg/dL (0.0-1.0); Blood Urea Nitrogen 101 mg/dL (9-16); Calcium 8.5 mg/dL (8.4-10.2); Carbon Dioxide 18 mmol/L (22-29); Chloride 113 mmol/L (96-108); Estimated Glomerular Filt Rate 9; Glucose Random 202 mg/dL (60-115); Potassium 3.7 mmol/L (3.3-5.1); Sodium 142 mmol/L (135-145); Total Protein 6.3 g/dL (6.5-8.0)
[2024-02-21 07:37] LABS: HBS Num1 0.44 mIU/mL (0-7.99); HBc Num1 0.14 S/CO (0.00-0.79); HBsAGNum1 0.22 S/CO (0.00-0.99); Hepatitis A Antibody IgM 0.22 Index (0-0.79); Hepatitis B Core Antibody Nonreactive (Nonreactive); Hepatitis B Surface Antigen Negative (Negative); ~HepC Num1 0.14 S/CO (0.00-0.79); ~Hepatitis A Antibody IgM Nonreactive (Nonreactive); ~Hepatitis B Surface Antibody NONREACTIVE (Nonreactive); ~Hepatitis C Antibody Nonreactive (Nonreactive)
[2024-02-21 07:42] LABS: HBS Num1 0.48 mIU/mL (0-7.99); HBc Num1 0.13 S/CO (0.00-0.79); HBsAGNum1 0.34 S/CO (0.00-0.99); Hepatitis B Core Antibody Nonreactive (Nonreactive); Hepatitis B Surface Antigen Negative (Negative); ~Hepatitis B Surface Antibody NONREACTIVE (Nonreactive)
== END 2024-02-20 12:56 | disposition home or self-care (01) ==
LOC: HO.LAB 12:55
PROVIDERS: Absent Provider Internal Medicine Nephrology; PCP Internal Medicine; Visit Provider Internal Medicine Hypertension Specialist
DX: N18.5 Chronic kidney disease, stage 5 (principal)
CPT/HCPCS: 36415; 80053; 86704; 86706; 86709; 86803; 87340

== ENCOUNTER 2024-03-04 14:48 | Outpatient (AMB) | payer OTHER, SELFPAY ==
[2024-03-04 14:49] VITALS: BP 130/52; PULSE 73; O2SAT 98
--- NOTE | 2024-03-04 14:49 | HO.NEPHOV_ITS ---
Vital Signs 03/04/24 14:49 Height 5 ft 7 in BP 130/52 L Blood Pressure Location Lt brachial Position Sitting Pulse 73 Pulse Source Pulse Oximeter Pulse Oximetry (%) 98 Oxygen Delivery Method Room Air Intake Visit Reasons: Retacrit/ Conf Enrollment Eligibility Representative Required: No Accompanied by: Sister Allergies No Known Allergies Allergy (Verified 03/04/24 14:52) HPI Comments Details: 53-year-old man with a history of diabetes mellitus since the age of 24 has been referred for evaluation of chronic kidney disease. Howard had a serum creatinine of 5.0 with a EGFR of 12 mL/minute on 08/27/2023. In 2022 creatinine was 2.6 with a EGFR of 29 mL/minute. It appears that he has chronic kidney disease with a baseline of around 2.6 mg/dL. In 2020 he was hospitalized with Gram-positive bacteremia and he had acute kidney injury at the time. There is a history of noncompliance with medications and treatment. Overall diabetes mellitus has been suboptimally controlled with a hemoglobin A1c as high as 13%. Recent A1c is around 7.6%. He has mild diabetic retinopathy. He has nephrotic range proteinuria as well. Blood pressure has been difficult to control he has been on amlodipine 10 mg hydralazine 10 mg 3 times a day and lisinopril 20 mg once a day. Over the last few years he self medicated and increase the dose to 40 mg a day. There is episode of hyperkalemia at 6.1 back in June 2022. However the recent potassium was 4.8 mg/dL. As for the diet he eats a regular diet including high salt diet. He does not exercise regularly. No history of smoking or alcohol abuse although he socially drinks 1 or 2 drinks every couple of weeks. He tells me that his girlfriend has noticed that he has been snoring. In the past he has been referred for sleep evaluation which she did not follow through. 11/27/2023. Recently hospitalized at [facility]. He had acute kidney injury superimposed on CKD with hyperkalemia. He underwent emergency dialysis. There was some recovery of renal function and was taken off dialysis. He has been off dialysis for the last 2 weeks. He is currently nonoliguric During this admission he had CVA and had difficulty swallowing. He failed the swallowing evaluation and currently on puree diet. He has a follow-up with sand mill operator. He had severe anemia requiring blood transfusion. He received Epogen injections as well. Today he is accompanied by his family members. He is feeling much better appetite is fair no nausea or vomiting. No shortness of breath. No urinary symptoms. 12/19/2023. Overall doing better from his last visit no new issues He met with the dialysis nurse and currently being evaluated for peritoneal dialysis 01/05/2024. Seen today for suboptimal blood pressure 02/09/2024. Recently in ER for pneumonia. Currently on antibiotics and tapering dose of prednisone. Overall feels better. PD catheter was inserted. This was flushed [facility] Medical History Metabolic acidosis Right foot ulcer Anxiety History of foot ulcer Obesity (BMI 30-39.9) Depression Rotator cuff arthropathy of left shoulder Vitamin D deficiency Allergic rhinitis Anemia Pure hypercholesterolemia Benign essential hypertension Diabetic polyneuropathy Type 2 diabetes mellitus with diabetic chronic kidney disease Erectile dysfunction Type 2 diabetes mellitus with hyperglycemia, with long-term current use of insulin Type 2 diabetes mellitus with diabetic polyneuropathy Type 2 diabetes mellitus with chronic kidney disease 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 LDL goal <70 Surgical History History of nasal surgery Family History Father Lung cancer Mother Hypertension Coronary artery disease CVD (cardiovascular disease) TIA (transient ischemic attack) Sister Diabetes Maternal Uncle Diabetes Other Mental health problem Social History Household Members: Family Housing: House Do you presently have visiting nurse or other home services: Yes Alcohol intake: current Alcohol intake frequency: holidays/special occasions only Comment: sister in room Patient Tobacco Use Status: Never used Tobacco e-Cigarette/Vaping Use: Never Used Second Hand Smoke Exposure: Yes service: No Current occupational status: unemployed Cognitive needs: Yes (wheelchair, walker) Hearing needs: No Vision needs: No Physical Exam Vital Signs: Last Vital Signs Pulse 73 03/04/24 14:49 BP 130/52 L 03/04/24 14:49 Pulse Ox 98 03/04/24 14:49 Oxygen Delivery Method Room Air 03/04/24 14:49 Neck Neck: Yes supple Resp Auscultation: clear to auscultation bilaterally Cardio Palpation: no palpable S3 Heart sounds: no rubs GI Palpation (GI): Soft to palpation Auscultation: normal bowel sounds Neuro Motor exam (neuro): no asterixis Office Meds epoetin priti-epbx 20,000 unit/mL injection solution Performing Provider: Stone Ulloa MD [facility] Administered by: Stone Ulloa MD on 03/04/24 15:12 Dose Route Admin Location Dispensed Lot Number Expiration Date [facility] Human Resources Project Manager 20,000 unit subcut right arm 1 mL [id number] 05/16/25 6221-2675-65 [place] [employer] Results Reviewed Nephrology Results: Hgb 7.6 g/dl (14.0-18.0) L 02/05/24 WBC 11.2 X10*3/uL (4.8-10.8) H 02/05/24 Plt Count 189 X10*3/uL (160-400) 02/05/24 Sodium 142 mmol/L (135-145) 02/20/24 Potassium 3.7 mmol/L (3.3-5.1) 02/20/24 Chloride 113 mmol/L (96-108) H 02/20/24 Carbon Dioxide 18 mmol/L (22-29) L 02/20/24 BUN 101 mg/dL (9-16) H 02/20/24 Creatinine 6.24 mg/dL (0.5-1.4) H* 02/20/24 Calcium 8.5 mg/dL (8.4-10.2) 02/20/24 PTH Intact 182.7 pg/mL (8.7-77.1) H 02/03/24 Urine Protein 100 (2+) mg/dL (Neg-Trace) H 02/03/24 Assessment & Plan Assessment & Plan (1) Chronic kidney disease, stage V: Code(s): N18.5 - Chronic kidney disease, stage 5 Category: Medical Plan: Goal is to slow the progression of renal disease. Optimize blood pressure Optimize blood sugar control. Continue to avoid nephrotoxic agents including NSAIDs. Mild secondary hyperparathyroidism with Vit D deficiency Cholecalceferol and follow iPTH s/p insertion of PD catheter. Start PD training ity and tolerated well. (2) Acute on chronic kidney failure: Code(s): N17.9 - Acute kidney failure, unspecified; N18.9 - Chronic kidney disease, unspecified Category: Medical Qualifiers: Acute renal failure type: unspecified Chronic kidney disease stage: stage 5, not on chronic dialysis Qualified Code(s): N17.9 - Acute kidney failure, unspecified; N18.5 - Chronic kidney disease, stage 5 (3) Essential hypertension: Code(s): I10 - Essential (primary) hypertension Category: Medical Plan: Blood pressure is well controlled we will keep him on the current medications Encouraged him to stay on low-sodium diet Goal is to maintain blood pressure less than 130 mm of mercury systolic. No absolute indication for diuretic yet. (4) Type 2 diabetes mellitus with diabetic chronic kidney disease: Code(s): E11.22 - Type 2 diabetes mellitus with diabetic chronic kidney disease Category: Medical Qualifiers: Chronic kidney disease stage: stage 3 (moderate) Chronic kidney disease stage 3 subtype: stage 3b (GFR 30-44) Diabetes mellitus intermission coordinator insulin use: with intermission coordinator use Qualified Code(s): E11.22 - Type 2 diabetes mellitus with diabetic chronic kidney disease; N18.32 - Chronic kidney disease, stage 3b; Z79.4 - exterminator helper termite (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 of insulin Plan: Goal is to maintain A1c less than 7%. Encouraged to increase physical activity as well. Defer management to PCP (5) Anemia due to chronic kidney disease: Comment: Most likely due to erythropoietin deficiency iron TIBC ferritin B12 and folate. are normal Code(s): N18.9 - Chronic kidney disease, unspecified; D63.1 - Anemia in chronic kidney disease Category: Medical Qualifiers: Chronic kidney disease stage: stage 5, not on chronic dialysis Qualified Code(s): N18.5 - Chronic kidney disease, stage 5; D63.1 - Anemia in chronic kidney disease Plan: Administered Retacrit 46895 units right upper extrem (6) Metabolic acidosis: Code(s): E87.20 - Acidosis, unspecified Category: Medical Plan: Continue Sodium bicarbonate 650 mg Decrease dose to once a day h/o hyperkalemia in the setting of CKD. Discussed and gave instructions for low K diet Plan Need to rule out obstructive sleep apnea. He may require sleep evaluation I have discussed this with him. Referred to Sleep Medicine service Anemia due to underlying CKD She will arrange for Epogen next visit. Orders: Orders AMB Epoetin Injection Practice Supplied Today N40.1 - Benign prostatic hyperplasia with lower urinary tract symptoms Coding Level of Care Code New Pt Level 4 (86814) Complex EM visit Add On G2211 Diagnoses Chronic kidney disease, stage V N18.5 Acute on chronic kidney failure N17.9; N18.5 Acute renal failure type: unspecified Chronic kidney disease stage: stage 5, not on chronic dialysis Essential hypertension I10 Type 2 diabetes mellitus with stage 3b chronic kidney disease, with long-term current use of insulin E11.22; N18.32; Z79.4 Chronic kidney disease stage: stage 3 (moderate) Chronic kidney disease stage 3 subtype: stage 3b (GFR 30-44) Diabetes mellitus intermission coordinator insulin use: with detention use Anemia due to stage 5 chronic kidney disease, not on chronic dialysis N18.5; D63.1 Chronic kidney disease stage: stage 5, not on chronic dialysis Metabolic acidosis E87.20
== END 2024-03-04 15:10 | disposition home or self-care (01) ==
PROVIDERS: PCP Internal Medicine; Visit Provider Internal Medicine Hypertension Specialist
DX: N17.9 Acute kidney failure, unspecified (principal); I12.0 Hypertensive chronic kidney disease with stage 5 chronic kidney disease or end stage renal disease; E11.22 Type 2 diabetes mellitus with diabetic chronic kidney disease; N18.5 Chronic kidney disease, stage 5; Z79.4 Long term (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 of insulin; D63.1 Anemia in chronic kidney disease; E87.20 Acidosis, unspecified; N40.1 Benign prostatic hyperplasia with lower urinary tract symptoms
CPT/HCPCS: 99214; G2211

== ENCOUNTER → 2024-03-04 14:48 | Outpatient (BNVA) | payer OTHER, SELFPAY | PROVIDERS: PCP Internal Medicine; Visit Provider Internal Medicine Hypertension Specialist | DX: E11.22 Type 2 diabetes mellitus with diabetic chronic kidney disease (principal); N18.5 Chronic kidney disease, stage 5; N17.9 Acute kidney failure, unspecified; D63.1 Anemia in chronic kidney disease; E87.20 Acidosis, unspecified; Z79.4 Long term (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 of insulin | CPT/HCPCS: 96372; 99212; Q5106 ==

== ENCOUNTER 2024-03-10 11:59 | Outpatient (REF) | payer OTHER, SELFPAY ==
[2024-03-10 14:49] LABS: Anion Gap 17 (12-20); Blood Urea Nitrogen 64 mg/dL (9-16); Calcium 9.1 mg/dL (8.4-10.2); Carbon Dioxide 24 mmol/L (22-29); Chloride 104 mmol/L (96-108); Estimated Glomerular Filt Rate 10; Glucose Random 310 mg/dL (60-115); Sodium 141 mmol/L (135-145)
[2024-03-11 05:41] LABS: HBc Num1 0.14 S/CO (0.00-0.79); Hepatitis B Core Antibody Nonreactive (Nonreactive)
== END 2024-03-10 12:00 | disposition home or self-care (01) ==
LOC: HO.LAB 11:59
PROVIDERS: Absent Provider Internal Medicine Nephrology; PCP Internal Medicine; Visit Provider Internal Medicine Hypertension Specialist
DX: N18.5 Chronic kidney disease, stage 5 (principal)
CPT/HCPCS: 36415; 80048; 86704

== ENCOUNTER → 2024-04-14 11:47 | Outpatient (REF) | payer OTHER, SELFPAY ==
--- NOTE | 2024-04-14 11:56 | ECG_ITS ---
Test Reason : HYPERKALEMIA Blood Pressure : / mmHG Vent. Rate : 075 BPM Atrial Rate : 075 BPM P-R Int : 168 ms QRS Dur : 094 ms QT Int : 446 ms P-R-T Axes : -16 -11 043 degrees QTc Int : 498 ms Sinus rhythm with Premature atrial complexes Minimal voltage criteria for LVH, may be normal variant ( R in aVL ) Prolonged QT Abnormal ECG When compared with ECG of 11-NOV-2023 07:50, Premature atrial complexes are now Present Referred By: Michael Garcia Electronically Signed By:ALFREDO ALEXANDER
== END ==
LOC: HO.CARD 11:47
PROVIDERS: PCP Internal Medicine; Visit Provider Internal Medicine
DX: E87.5 Hyperkalemia (principal)
CPT/HCPCS: 93005

== ENCOUNTER → 2024-04-14 11:56 | Outpatient (BNV) | payer OTHER, SELFPAY | PROVIDERS: PCP Internal Medicine; Visit Provider Internal Medicine | DX: E87.5 Hyperkalemia (principal) | CPT/HCPCS: 93010 ==

== ENCOUNTER → 2024-04-16 | Outpatient (BNV) | payer OTHER, SELFPAY | PROVIDERS: PCP Internal Medicine; Visit Provider Internal Medicine Nephrology | DX: N18.6 End stage renal disease (principal) | CPT/HCPCS: 90962 ==

== ENCOUNTER 2024-04-21 12:30 | Outpatient (AMB) | payer OTHER, SELFPAY ==
--- NOTE | 2024-04-21 11:02 | A.OFFVIS_ITS ---
Vital Signs 04/21/24 13:00 Height 5 ft 7 in BP 152/68 H Blood Pressure Location Rt brachial Position Sitting Pulse 82 Pulse Source Pulse Oximeter Intake Visit Reasons: T2DM/CONFIRMED Intake Note: Patient presents today to establish treatment for Type 2 Diabetes Mellitus: Last Diabetic eye exam was on: 2 weeks ago, getting shots Last Podiatry exam was on: Does not see a Platform Consultant Most recent HbA1c: 6.7%, 04/21/2024 Random Glucose- 307 mg/dL, Today Logistics Research Engineer Required: No Accompanied by: Sister/SPECIALTY FOOD PRODUCTS SUPERVISOR Allergies No Known Allergies Allergy (Verified 04/21/24 12:55) HPI Comments Details: Patient is a 50 yo male with DM type 2 diagnosed approximately 24 years ago, who presents for management of diabetes. Patient was last seen on 07/09/21 in Endocrine [facility]. He has a prior history of [facility] an ulceration on his left foot. HGBA1C 04/21/24 % 01/15/2024 of 5.9%, 01/17/2023 7.8%. Patient has CKD with low hemoglobin and hematocrit A1c is not accurate for this patient. Today he presents with his sister and SPECIALTY FOOD PRODUCTS SUPERVISOR who comes to the house daily. Past medical history: HTN, HLD, CKD, hx of ulcerations on right foot Micro and macrovascular complications: + retinopathy, + nephropathy, + neuropathy Had been on Trulicity 1.5mg weekly in the past Diabetes medications: Lantus 15 units in am Humalog 5 units tid before meals plus 2 units for blood sugars over 200, over 300 10-15 Fs2 is not brought in today no lows readings in the 200-300 range occasionally higher Hyperglycemia: deneis urinary frequency, nocturia on occassion once a night , no polydypsia Has neuropathy: + numbness, tingling, in feet, Has retinopathy: last eye exam 05/09 Gets shots in eye due to retinopathy, and having laser procedure later this month Has nephropathy: 07/09 microalbumin greater than 2000 creatinine 5.76 03/10/24 Activity: constantly moving in house taking care of mother, and when out it active Diet: three meals a day, occasional snacks. [facility] Medical History Metabolic acidosis Right foot ulcer Anxiety History of foot ulcer Obesity (BMI 30-39.9) Depression Rotator cuff arthropathy of left shoulder Vitamin D deficiency Allergic rhinitis Anemia Pure hypercholesterolemia Benign essential hypertension Diabetic polyneuropathy Type 2 diabetes mellitus with diabetic chronic kidney disease Erectile dysfunction Type 2 diabetes mellitus with hyperglycemia, with long-term current use of insulin Type 2 diabetes mellitus with diabetic polyneuropathy Type 2 diabetes mellitus with chronic kidney disease 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 LDL goal <70 Surgical History History of nasal surgery Family History Father Lung cancer Mother Hypertension Coronary artery disease CVD (cardiovascular disease) TIA (transient ischemic attack) Sister Diabetes Maternal Uncle Diabetes Other Mental health problem Social History Household Members: Family Housing: House Do you presently have visiting nurse or other home services: Yes Alcohol intake: current Alcohol intake frequency: holidays/special occasions only Comment: sister in room Patient Tobacco Use Status: Never used Tobacco e-Cigarette/Vaping Use: Never Used Second Hand Smoke Exposure: Yes service: No Current occupational status: unemployed Cognitive needs: Yes (wheelchair, walker) Hearing needs: No Vision needs: No Physical Exam Vital Signs: Last Vital Signs Pulse 82 04/21/24 13:00 BP 152/68 H 04/21/24 13:00 Const Other: Absence of Cushingoid features. Absence of acromegalic features. Neck exam reveals nl size thyroid about 15 gms. No thyroid nodules palpable. Heart S1 S2, Reg R/R. No M/R G. Skin exam reveals absence of vitiligo or acanthosis nigricans. wheel chair bound. answers questions with 1-2 words muscle strength not tested Visual exam of foot performed. No ulcerations or open lesions. No inter digit maceration or fissuring. No onychomycosis, no callouses. Sensation diminished to monofilament exam. Vibratory sensation is diminished with 128 Hz tuning fork. Results AMB Hemoglobin A1c 2 AMB Hemoglobin A1c 6.7 % Last Edit by UGO Garcia on 04/21/24 13:19 Results Reviewed Results Reviewed: Laboratory Last Values Glucose (Clinic) 307 mg/dL (60-115) H 04/21/24 12:49 Hgb A1c (Clinic) 6.7 % (4.0-6.0) H 04/21/24 13:13 Assessment & Plan Assessment & Plan (1) Type 2 diabetes mellitus with chronic kidney disease: Code(s): E11.22 - Type 2 diabetes mellitus with diabetic chronic kidney disease Category: Medical Qualifiers: Diabetes mellitus termite technician insulin use: with skilled nursing use Chronic kidney disease stage: stage 3 (moderate) Chronic kidney disease stage 3 subtype : stage 3b (GFR 30-44) Qualified Code(s): E11.22 - Type 2 diabetes mellitus with diabetic chronic kidney disease; N18.32 - Chronic kidney disease, stage 3b; Z79.4 - penitentiary (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 of insulin Plan: 54 year old type 2 diabetic with CKD on peritoneal dialysis, retinopathy and neuropathy presents with poor glycemic control. We will start on freestyle Lida 3+ and submit prescription for CeQur Change to Tresiba as Lantus is not providing 24 hour coverage Sliding scale short-acting insulin given for Humalog New dosing Tresiba 20 units Humalog before each meal 80 -150 5 units on cequr 3 clicks 151-200 6 units 3 clicks 201-250 7-8 units 4 clicks 251-300 9-10 units 5 clicks Over 300 12 units 6 clicks Can consider adding pioglitazone 15 mg The patient had an opportunity to ask questions regarding treatment plan. The patient expressed understanding and agreement with the above treatment plan. The patient is aware they should contact our office by phone for worsening glucose readings or for any low blood sugars which may warrant a change in diabetes medication. Compliance is encouraged with medications and any followup testing/consults which may have been ordered. Orders: Orders Lipid Panel Today E11.22 - Type 2 diabetes mellitus with diabetic chronic kidney disease, N18.32 - Chronic kidney disease, stage 3b, Z79.4 - penitentiary (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 of insulin Fructosamine Today E11.22 - Type 2 diabetes mellitus with diabetic chronic kidney disease, N18.32 - Chronic kidney disease, stage 3b, Z79.4 - penitentiary (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 of insulin AMB Hemoglobin A1c Today E11.22 - Type 2 diabetes mellitus with diabetic chronic kidney disease, N18.32 - Chronic kidney disease, stage 3b, Z79.4 - penitentiary (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 of insulin Referrals Podiatry Referral E11.42 - Type 2 diabetes mellitus with diabetic polyn europathy Medications: New insulin degludec (Tresiba FlexTouch U-200 insulin) 20 units (0.1 mL) subcut DAILY 30 days 6 mL 10RF diabetic supplies, miscellan. (CeQur Simplicity Enrichment Teacher) As directed for use with cequr insulin patch 1 ea 1RF insulin lispro 80-150 6 units 3 clicks 151-200 6 units 3 clicks 201-250 8 units 4 clicks 250-300 10 units 5 clicks over 300 12 units 6 clicks will need additional insulin to fill device 30 days 20 mL 3RF bolus insulin pump, 200 unit (CeQur Simplicity) As directed every 4 days 8 ea 11RF blood-glucose sensor (FreeStyle Lida 3 Plus Sensor device) As directed every 15 days 2 ea 11RF blood-glucose meter,continuous (FreeStyle Lida 3 [place]) As directed 1 ea 1RF Discontinued Lantus Solostar U-100 Insulin (insulin glargine) Discontinued Reason: Doctor's Order 15 units (0.15 mL) subcut QAM 15 mL 2RF NS E11.22 - Type 2 diabetes mellitus with diabetic chronic kidney disease Patient Instructions: The patient was counseled to achieve a target A1C of 7% (154 avg). Fasting blood sugars should be 90-130 in the morning and less than 180 two hours after meals. Reviewed the relationship between poor diabetic control and the development of complications. The patient was counseled to always carry a source of sugar and on the rule of 15's: Take 3 glucose tablets and repeat again in 15 minutes if blood sugar is not in normal range. Continue to repeat every 15 minutes until blood sugar is normal. Coding Level of Care Code New Pt Level 5 (90518) Complex EM visit Add On G2211 Diagnoses Type 2 diabetes mellitus with stage 3b chronic kidney disease, with long-term current use of insulin E11.22; N18.32; Z79.4 Diabetes mellitus termite technician insulin use: with termite technician use Chronic kidney disease stage: stage 3 (moderate) Chronic kidney disease stage 3 subtype: stage 3b (GFR 30-44) Time Spent (min) 50 Comment Time spent reviewing labs/provider notes, face to face, chart doc
[2024-04-21 12:54] LABS: Glucose, Whole Blood 307 mg/dL (60-115)
[2024-04-21 13:00] VITALS: BP 152/68; PULSE 82
== END 2024-04-21 13:31 | disposition home or self-care (01) ==
PROVIDERS: PCP Internal Medicine; Visit Provider Nurse Practitioner Adult Health
DX: E11.22 Type 2 diabetes mellitus with diabetic chronic kidney disease (principal); N18.32 Chronic kidney disease, stage 3b; Z79.4 Long term (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 of insulin
CPT/HCPCS: 99215; G2211

== ENCOUNTER → 2024-04-21 12:30 | Outpatient (BNVA) | payer OTHER, SELFPAY | PROVIDERS: PCP Internal Medicine; Visit Provider Nurse Practitioner Adult Health | DX: E11.22 Type 2 diabetes mellitus with diabetic chronic kidney disease (principal); E11.319 Type 2 diabetes mellitus with unspecified diabetic retinopathy without macular edema; E11.21 Type 2 diabetes mellitus with diabetic nephropathy; E11.40 Type 2 diabetes mellitus with diabetic neuropathy, unspecified; E78.5 Hyperlipidemia, unspecified; N18.32 Chronic kidney disease, stage 3b; Z79.4 Long term (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 of insulin | CPT/HCPCS: 82947; 83036; 99212 ==

== ENCOUNTER 2024-04-23 12:22 | Outpatient (AMB) | payer OTHER, SELFPAY ==
--- NOTE | 2024-04-23 12:35 | A.OFFVIS_ITS ---
Vital Signs 04/23/24 12:45 Height 5 ft 7 in Weight 216 lb BMI 33.8 BP 142/60 H Blood Pressure Location Rt brachial Position Sitting Pulse 76 Pulse Source Pulse Oximeter Pulse Oximetry (%) 96 Oxygen Delivery Method Room Air Intake Visit Reasons: 2 month follow up Intake Note: Relevant Flags or Indicators ? Requires Clay Dry Press Helper? Kiel Howard presents in office today for a scheduled 2 mos FUV. CC; Labs done except CBC. No diagnostics or meds ordered per last visit. Relevant GI Sx as reported per pt? None ? Hx of any recent surgeries? None Clay Dry Press Helper Required: No Accompanied by: Family/Other Allergies No Known Allergies Allergy (Verified 04/23/24 12:46) HPI Comments Details: 53-year-old gentleman with prolonged hospitalization over the summer for DKA, renal failure, embolic infarct in the left cerebral territory who was seen in consultation for acute on chronic anemia and is here for post-discharge follow up. Sister and TOTER in attendance. Pt seaterd in wheelchair and minimally engages. Sister answers most of the questions. Reports recent insertion of PD catheter last week in anticipation of APRON TRIMMER so he has some discomfort around that area but otherwise no abd pain, N,V, D. Stools are formed and yellow/brown. No blood noted. No melena. Pt does not report any chest pain. Has occ shortness of breath which is worse on days hes only urinated once/twice. He is being followed by [facility] Nephrology for stage V CKD. Received epogen while he was admitted but has not needed them recently. Iron panel in September 2023 was wnl. Pt also has residual dysphagia post stroke and mechanically modified diet. He has never had a screening colo. 04/23/24: Here for follow up. No acute GI issues. PD started. Gets q4h sessions at home. They have a date for EGD/colo in Jun. Reviewed need for ABx pre-procedure. [facility] Medical History Metabolic acidosis Right foot ulcer Anxiety History of foot ulcer Obesity (BMI 30-39.9) Depression Rotator cuff arthropathy of left shoulder Vitamin D deficiency Allergic rhinitis Anemia Pure hypercholesterolemia Benign essential hypertension Diabetic polyneuropathy Type 2 diabetes mellitus with diabetic chronic kidney disease Erectile dysfunction Type 2 diabetes mellitus with hyperglycemia, with long-term current use of insulin Type 2 diabetes mellitus with diabetic polyneuropathy Type 2 diabetes mellitus with chronic kidney disease 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 LDL goal <70 Surgical History History of nasal surgery Family History Father Lung cancer Mother Hypertension Coronary artery disease CVD (cardiovascular disease) TIA (transient ischemic attack) Sister Diabetes Maternal Uncle Diabetes Other Mental health problem Social History Household Members: Family Housing: House Do you presently have visiting nurse or other home services: Yes Alcohol intake: current Alcohol intake frequency: holidays/special occasions only Comment: sister in room Patient Tobacco Use Status: Never used Tobacco e-Cigarette/Vaping Use: Never Used Second Hand Smoke Exposure: Yes service: No Current occupational status: unemployed Cognitive needs: Yes (wheelchair, walker) Hearing needs: No Vision needs: No Review of Systems Const All systems reviewed & are unremarkable except as noted in HPI and below Physical Exam Vital Signs: Last Vital Signs Pulse 76 04/23/24 12:45 BP 142/60 H 04/23/24 12:45 Pulse Ox 96 04/23/24 12:45 Oxygen Delivery Method Room Air 04/23/24 12:45 BMI result Body Mass Index 33.8 Middle aged male Mild pallor Nonicteric seated in wheelchair A/Ox3, answers questions appropriately Assessment & Plan Assessment & Plan (1) Anemia: Code(s): D64.9 - Anemia, unspecified Category: Medical Qualifiers: Anemia type: unspecified type Qualified Code(s): D64.9 - Anemia, unspecified (2) Chronic kidney disease, stage V: Code(s): N18.5 - Chronic kidney disease, stage 5 Category: Medical (3) 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 Requested to bring results to the office early next week. 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
[2024-04-23 12:45] VITALS: BP 142/60; PULSE 76; O2SAT 96; BMI 33.8
== END 2024-04-23 13:34 | disposition home or self-care (01) ==
PROVIDERS: PCP Internal Medicine; Visit Provider Internal Medicine
DX: D64.9 Anemia, unspecified (principal); N18.5 Chronic kidney disease, stage 5; I63.12 Cerebral infarction due to embolism of basilar artery; R13.10 Dysphagia, unspecified
CPT/HCPCS: 99213

== ENCOUNTER → 2024-04-23 12:22 | Outpatient (BNVA) | payer OTHER, SELFPAY | PROVIDERS: PCP Internal Medicine; Visit Provider Internal Medicine | DX: D64.9 Anemia, unspecified (principal); N18.5 Chronic kidney disease, stage 5; R13.10 Dysphagia, unspecified; I63.12 Cerebral infarction due to embolism of basilar artery | CPT/HCPCS: 99212 ==

== ENCOUNTER 2024-04-30 13:42 | Outpatient (AMB) | payer OTHER, SELFPAY ==
[2024-04-30 13:45] VITALS: BP 132/70; PULSE 77; O2SAT 97; BMI 32.7
--- NOTE | 2024-04-30 13:45 | A.OFFPC_ITS ---
Vital Signs 04/30/24 13:45 Height 5 ft 7 in Weight 209 lb BMI 32.7 BP 132/70 Blood Pressure Location Lt brachial Position Sitting Pulse 77 Pulse Source Pulse Oximeter Pulse Oximetry (%) 97 Oxygen Delivery Method Room Air Intake Visit Reasons: 3mth f/u Ladies' Hat Trimmer Required: No Accompanied by: Self / Same As Patient Allergies No Known Allergies Allergy (Verified 04/30/24 14:12) Medication List - Last Reconciled 04/30/24 by Michael Garcia MD atorvastatin 80 mg PO DAILY 90 days [Bed pads As directed] blood sugar diagnostic (FreeStyle Lite Strips) As directed tid blood-glucose meter (FreeStyle Lite Meter kit) As directed tid blood-glucose meter,continuous (FreeStyle Lida 3 [place]) As directed blood-glucose sensor (FreeStyle Lida 3 Plus Sensor device) As directed every 15 days bolus insulin pump, 200 unit (CeQur Simplicity) As directed every 4 days [Commode As directed] diabetic supplies, miscellan. (CeQur Simplicity Livestock Handler) As directed for use with cequr insulin patch ergocalciferol (vitamin D2) 1,250 mcg PO QWEEK flash glucose sensor (FreeStyle Lida 14 Day Sensor kit) USE DIRECTED EVERY 2 WEEKS furosemide 40 mg PO DAILY hydralazine 100 mg PO TID 90 days insulin degludec (Tresiba FlexTouch U-200 insulin) 26 units (0.13 mL) subcut DAILY 30 days insulin lispro 80-150 6 units 3 clicks 151-200 6 units 3 clicks 201-250 8 units 4 clicks 250-300 10 units 5 clicks over 300 12 units 6 clicks will need additional insulin to fill device 30 days lactulose 20 grams (30 mL) PO BID lancets (FreeStyle Lancets) 3 times a day prn to confirm glucose sensor losartan 25 mg PO DAILY mirtazapine 22.5 mg PO DAILY omeprazole 40 mg PO BID oxycodone 5 mg PO BID-TID PRN 28 days peg 3350-electrolytes 236-22.74-6.74 -5.86 gram (Golytely) 240 mL PO Q10M pen needle, diabetic (BD Ultra-Fine Odette Pen Needle) 1 ea subcut QID sennosides-docusate sodium 8.6-50 mg (Senokot-S) 1 tab-cap PO BEDTIME PRN 30 days Shower Chair As directed walker As directed Tobacco use date assessed: 04/30/24 Dental Screening Dental Screen Date: 04/30/24 Did you have a dental visit in the last 12 months?: Yes Did you have a dental problem in the last 6 months where you did not have access to dental care?: No Was dental information given to patient?: Patient has dentist HPI 3mth f/u HPI Details Patient comes in today for his follow up visit States that he currently feels okay He has been doing well on peritoneal dialysis up to 4 times a day at home for the past 3 months or so now He denies any headaches or dizziness Denies any chest pains, no increased SOB No nausea/vomiting, no abdominal pain No change in bowel habits noted He does not appear to have had any follow up labs done recently and the last time his fasting lipids were checked was back in 2019 but his family states that he has labs drawn routinely every 1 to 2 months by nurses at the dialysis unit ([facility]) and he should have had these done as well recently - states that they will try to bring in copies of his more recent labs to be scanned into his chart ROZ States that patient has been doing well enough lately that he was taken off Amlodipine by nephrology not too long ago Needs his Omeprazole Rx refilled [facility] Medical History (Updated 05/02/24 @ 03:48 by Michael Garcia MD) Essential hypertension 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 Metabolic acidosis Right foot ulcer Anxiety History of foot ulcer Obesity (BMI 30-39.9) Depression Rotator cuff arthropathy of left shoulder Vitamin D deficiency Allergic rhinitis Anemia Pure hypercholesterolemia Benign essential hypertension Diabetic polyneuropathy Type 2 diabetes mellitus with diabetic chronic kidney disease Erectile dysfunction Type 2 diabetes mellitus with hyperglycemia, with long-term current use of insulin Type 2 diabetes mellitus with diabetic polyneuropathy Type 2 diabetes mellitus with chronic kidney disease 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 LDL goal <70 Surgical History History of nasal surgery Family History Father Lung cancer Mother Hypertension Coronary artery disease CVD (cardiovascular disease) TIA (transient ischemic attack) Sister Diabetes Maternal Uncle Diabetes Other Mental health problem Social History Household Members: Family Housing: House Do you presently have visiting nurse or other home services: Yes Alcohol intake: current Alcohol intake frequency: holidays/special occasions only Comment: sister in room Patient Tobacco Use Status: Never used Tobacco e-Cigarette/Vaping Use: Never Used Second Hand Smoke Exposure: Yes service: No Current occupational status: unemployed Cognitive needs: Yes (wheelchair, walker) Hearing needs: No Vision needs: No Questionnaire PHQ-9 Over the last 2 weeks, how often have you been bothered by any of the following problems? 1. Little interest or pleasure in doing things: several days 2. Feeling down, depressed, or hopeless: nearly every day 3. Trouble falling or staying asleep, or sleeping too much: nearly every day 4. Feeling tired or having little energy: more than half the days 5. Poor appetite or overeating: not at all 6. Feeling bad about yourself - or that you are a failure or have let yourself or your family down: nearly every day 7. Trouble concentrating on things, such as reading the newspaper or watching television: several days 8. Moving or speaking so slowly that other people could have noticed. Or the opposite - being so fidgety or restless that you have been moving around a lot more than usual: not at all 9. Thoughts that you would be better off or of hurting yourself in some way: not at all Total score: 13 Depression Screening Interpretation: Positive Depression Screening Follow-up: Existing condition and In treatment Depression Screening Done: Yes 60534 - PHQ-9 Billing: Yes Source: Developed by Drs. Zay Babb, Genesis Aiken, Tony Garcia and colleagues, with an educational phoenix from [employer]. Thrive Questionnaire Date Thrive assessed: 04/30/24 I am a: Patient What is your living situation today?: I have a steady place to live Within the past 12 months, did the food you bought not last and you didn't have the money to get more?: Never true Within the past 12 months, did you worry whether your food would run out before you got money to buy more?: Never true Do you have trouble paying for medicines?: No Do you have trouble getting transportation to medical appointments?: No Do you have trouble paying your heating and electricity bill?: No Do you have trouble taking care of your child, family member or friend?: No Do you have trouble with day-to-day activities such as bathing, preparing meals, shopping, managing finances, etc.?: No Are you currently unemployed and looking for a job?: No Are you interested in more education?: No Please select the resources that you would like help with: None Currently or been in a relationship where the following occur: No concerns reported THRIVE Score: 0 AUDIT C Alcohol Use Questionnaire (AUDIT-C) 1. How often do you have a drink containing alcohol?: Monthly or less 2. How many drinks containing alcohol do you have on a typical day when you are drinking?: 1 or 2 3. How often do you have six or more drinks on one occasion?: Never Total Score: 1 Score Reviewed/Action Taken: Yes ANAHI-7 AMB Questionnaire ANAHI-7 Date ANAHI - 7 assessed: 04/30/24 Feeling nervous, anxious, or on edge: 0 = Not at all Not being able to stop or control worryin = Not at all Worrying too much about different things: 0 = Not at all Trouble relaxin = Not at all Being so restless that it is hard to sit still: 0 = Not at all Becoming easily annoyed or irritable: 0 = Not at all Feeling afraid as if something awful might happen: 0 = Not at all Total ANAHI-7 score (0-4 normal; 5-9 mild; 10-14 moderate; 15-21 severe): 0 Source: Developed by Drs. Zay Babb, Genesis Aiken, Tony Garcia and colleagues, with an educational phoenix from [employer]. Review of Systems Const Denies chills, Reports fatigue, Denies fever(s) and Denies headache(s) ENT Denies dysphagia, Denies dizziness, Denies otalgia, Denies headache(s), Denies neck pain, Denies odynophagia and Denies sore throat Card Denies chest pain, Denies rapid heart rate, Denies palpitations and Denies dyspnea Resp Denies cough, Denies dyspnea and Denies wheezing GI Denies abdominal pain, Denies constipation, Denies dysphagia, Denies diarrhea, Denies nausea, Denies odynophagia and Denies vomiting Denies difficulty urinating, Denies nocturia and Denies urinary frequency Musc Denies back pain, Denies arthralgias and Denies neck pain Skin/Breast Denies rash Neuro Details: (+) chronic pain over both lower extremities, especially in both feet, due to neuropathy; (+) left-sided weakness Reports burning sensations (occasionally, in both feet), Denies dizziness and Denies headache(s) Psych Reports depression Endo Reports fatigue and Denies palpitations Aller/Immun Denies wheezing Physical exam (Primary Care) Vital Signs: Last Vital Signs Pulse 77 04/30/24 13:45 BP 132/70 04/30/24 13:45 Pulse Ox 97 04/30/24 13:45 Oxygen Delivery Method Room Air 04/30/24 13:45 BMI result Body Mass Index 32.7 Tobacco/Smoking Status: Tobacco use Status Tobacco use date assessed 04/30/24 04/30/24 13:47 Patient Tobacco Use Status Never used Tobacco 04/30/24 13:47 e-Cigarette/Vaping Use Never Used 04/30/24 13:47 PHQ-9: PHQ-9 Score PHQ-9: Total score 13 04/30/24 16:07 Depression Screening Interpretation: Positive Depression Screening Follow-up: Existing condition and In treatment Thrive Assessment: Date of Thrive Assessment Date Thrive assessed 04/30/24 04/30/24 13:47 Currently or been in a relationship where the following occur: No concerns reported Const General: no acute distress and alert Limitations: wheelchair HENMT Ears: TM's normal bilaterally and EAC's normal Throat: Yes posterior oropharynx normal and Yes tonsils normal Neck Neck: Yes no lymphadenopathy and Yes supple Thyroid: Thyroid normal Resp Auscultation: clear to auscultation bilaterally, no rales and no wheezes Cardio Rate: regular rate Rhythm: regular rhythm Heart sounds: no murmurs GI Palpation (GI): Soft to palpation and nontender Auscultation: normal bowel sounds General: Yes no CVA tenderness Back/Spine/Pelvis Back: no CVA tenderness Thoracic/Lumbar Spine: No lumbar spinal tenderness Skin Rashes: no rashes Neuro Other: (+) left-sided weakness Gait exam (Neuro): Assistive device used Extrem General: Yes no clubbing, cyanosis or edema Results Reviewed Results Reviewed: Laboratory Tests 02/20/24 03/10/24 04/21/24 13:11 12:28 13:13 Sodium 141 Potassium 4.0 Creatinine 5.76 H* Estimated GFR 10 Random Glucose 310 H Hgb A1c (Clinic) 6.7 H Calcium 9.1 D AST 16 ALT 22 Coding Level of Care Code Est Pt Level 4 (60168) Complex EM visit Add On G2211 Diagnoses 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 I63.12 Type 2 diabetes mellitus with stage 3b chronic kidney disease, with long-term current use of insulin E11.22; N18.32; Z79.4 Diabetes mellitus terminal system operator insulin use: with terminal system operator use Chronic kidney disease stage: stage 3 (moderate) Chronic kidney disease stage 3 subtype: stage 3b (GFR 30-44) Chronic kidney disease, stage V N18.5 Anemia due to stage 5 chronic kidney disease, not on chronic dialysis N18.5; D63.1 Chronic kidney disease stage: stage 5, not on chronic dialysis Gastrointestinal hemorrhage, unspecified gastrointestinal hemorrhage type K92.2 GI bleed type/associated pathology: unspecified gastrointestinal hemorrhage type Essential hypertension I10 Vitamin D deficiency E55.9 Diabetic polyneuropathy associated with type 2 diabetes mellitus E11.42 Diabetes mellitus type: type 2 Adjustment disorder with depressed mood F43.21 Adjustment disorder type: with depressed mood Additional Codes PHQ-9 - 84262 - PHQ-9 Billing: Yes ([id number]) Assessment & Plan Assessment & Plan (1) 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: Code(s): I63.12 - Cerebral infarction due to embolism of basilar artery Category: Medical Plan: Brain MRI done on 10/29/2023 revealed a large acute infarct involving the left TECHNOLOGY PROGRAM MANAGER territory, with also multiple embolic infarcts bilaterally S/P home PT and OT; he is currently still going to PT at [facility] He currently still has dysphagia as well as mild left-sided weakness and requires assistance when ambulating; his mobility is still limited by some weakness and easy fatigability He is presently still on a pureed diet due to his residual dysphagia He was initially started on dual anti-platelet therapy with Aspirin and Plavix on the recommendation of Neurology but patient later developed GI bleeding requiring blood transfusions Both Aspirin and Plavix were stopped and patient is currently still on no anticoagulation or anti-platelet therapy due to his GI bleed Continue Atorvastatin 80 mg QD; his family states that they will try to bring in copies of his more recent labs that they think included some updated cholesterol levels Will have patient recheck his labs and fasting lipids in 3 months for follow-up (2) Type 2 diabetes mellitus with diabetic chronic kidney disease: Code(s): E11.22 - Type 2 diabetes mellitus with diabetic chronic kidney disease Category: Medical Qualifiers: Diabetes mellitus assisted insulin use: with assisted use Chronic kidney disease stage: stage 3 (moderate) Chronic kidney disease stage 3 subtype: stage 3b (GFR 30-44) Qualified Code(s): E11.22 - Type 2 diabetes mellitus with diabetic chronic kidney disease; N18.32 - Chronic kidney disease, stage 3b; Z79.4 - 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 of insulin Plan: His in-office HgbA1c was at 6.7% last week on 04/21/2024; was at 5.9% a few months ago Reinforced diabetic diet Continue Tresiba 26 units QD and Humalog 5 units 3 times a day with meals, with additional 2 units if blood sugar reading is over 200 mg/dL Follow up with endocrinology as scheduled (3) Chronic kidney disease, stage V: Code(s): N18.5 - Chronic kidney disease, stage 5 Category: Medical Plan: He is currently doing peritoneal dialysis at home up to 4 times a day Follow-up with nephrology as scheduled (4) Anemia due to chronic kidney disease: Comment: Most likely due to erythropoietin deficiency iron TIBC ferritin B12 and folate are normal epogen injection administered today, 20,000 units Code(s): N18.9 - Chronic kidney disease, unspecified; D63.1 - Anemia in chronic kidney disease Category: Medical Qualifiers: Chronic kidney disease stage: stage 5, not on chronic dialysis Qualified Code(s): N18.5 - Chronic kidney disease, stage 5; D63.1 - Anemia in chronic kidney disease Plan: Patient has received blood transfusions as well as injections of Epogen while he was in the hospital His most recent H/H was at 7.6/23.0 on 02/05/2024 - his family states that he's had labs drawn regularly since at the dialysis center and will try to bring in copies of his more recent labs Per Nephrology, he will be restarted on erythropoietin injections if his H/H drops any further at the time Will have him recheck his CBC in 3 months for follow up (5) GI bleed: Code(s): K92.2 - Gastrointestinal hemorrhage, unspecified Category: Medical Qualifiers: GI bleed type/associated pathology: unspecified gastrointestinal hemorrhage type Qualified Code(s): K92.2 - Gastrointestinal hemorrhage, unspecified Plan: Resolved He remains at high risk for recurrence so anti-platelet therapy was not resumed despite his embolic CVA back in October 2023 Will continue to monitor his CBC closely Continue Omeprazole 40 mg BID - Rx refilled Follow up with GI as scheduled (6) Essential hypertension: Code(s): I10 - Essential (primary) hypertension Category: Medical Plan: Reinforced low sodium diet - goal is systolic BP of 120 mm or less Continue Losartan 25 mg QD and Hydralazine 100 mg TID; he is also on Furosemide 40 mg QD but this is more for edema He was taken off his Amlodipine 5 mg by nephrology (7) Vitamin D deficiency: Code(s): E55.9 - Vitamin D deficiency, unspecified Category: Medical Plan: Continue Vitamin D3 1000 units QD (8) Diabetic polyneuropathy: Code(s): E11.42 - Type 2 diabetes mellitus with diabetic polyneuropathy Category: Medical Qualifiers: Diabetes mellitus type: type 2 Qualified Code(s): E11.42 - Type 2 diabetes mellitus with diabetic polyneuropathy Plan: Continue Oxycodone 5 mg BID-TID PRN for pain (9) Adjustment disorder: Code(s): F43.20 - Adjustment disorder, unspecified Category: Medical Qualifiers: Adjustment disorder type: with depressed mood Qualified Code(s): F43.21 - Adjustment disorder with depressed mood Plan: Continue Mirtazapine 15 mg Q HS Follow up with psychiatry as scheduled Plan Follow up in 3 months Orders: Orders Complete Blood Count Auto Diff 3 Months D64.9 - Anemia, unspecified TSH reflex Free T4 3 Months E78.00 - Pure hypercholesterolemia, unspecified Hemoglobin A1c 3 Months E11.9 - Type 2 diabetes mellitus without complications Lipid Panel 3 Months E78.00 - Pure hypercholesterolemia, unspecified Comprehensive [place]. Panel Fast 3 Months E78.00 - Pure hypercholesterolemia, unspecified Vitamin D 25-OH Total 3 Months E55.9 - Vitamin D deficiency, unspecified Medications: Changed From omeprazole 40 mg PO BID 180 caps 0RF To omeprazole 40 mg PO BID 90 days 180 caps 1RF
== END 2024-04-30 14:31 | disposition home or self-care (01) ==
PROVIDERS: PCP Internal Medicine; Visit Provider Internal Medicine
DX: I12.0 Hypertensive chronic kidney disease with stage 5 chronic kidney disease or end stage renal disease (principal); I63.12 Cerebral infarction due to embolism of basilar artery; N18.5 Chronic kidney disease, stage 5; E11.22 Type 2 diabetes mellitus with diabetic chronic kidney disease; Z79.4 Long term (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 of insulin; E11.42 Type 2 diabetes mellitus with diabetic polyneuropathy; D63.1 Anemia in chronic kidney disease; K92.2 Gastrointestinal hemorrhage, unspecified; E55.9 Vitamin D deficiency, unspecified; F43.21 Adjustment disorder with depressed mood

== ENCOUNTER → 2024-04-30 13:42 | Outpatient (BNVA) | payer OTHER, SELFPAY | PROVIDERS: PCP Internal Medicine; Visit Provider Internal Medicine | DX: I63.12 Cerebral infarction due to embolism of basilar artery (principal); I12.9 Hypertensive chronic kidney disease with stage 1 through stage 4 chronic kidney disease, or unspecified chronic kidney disease; E11.22 Type 2 diabetes mellitus with diabetic chronic kidney disease; N18.32 Chronic kidney disease, stage 3b; Z79.4 Long term (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 of insulin; D63.1 Anemia in chronic kidney disease; K92.2 Gastrointestinal hemorrhage, unspecified; E55.9 Vitamin D deficiency, unspecified; E11.42 Type 2 diabetes mellitus with diabetic polyneuropathy; F43.21 Adjustment disorder with depressed mood | CPT/HCPCS: 96127; 99212 ==

== ENCOUNTER 2024-05-06 15:29 | Outpatient (AMB) | payer OTHER, SELFPAY ==
--- NOTE | 2024-05-06 15:30 | A.OFFVIS_ITS ---
Vital Signs 05/06/24 15:33 Height 5 ft 7 in Weight 209 lb BMI 32.7 BP 138/78 Blood Pressure Location Rt brachial Position Sitting Pulse 96 Pulse Source Pulse Oximeter Intake Visit Reasons: T2DM/CONFIRMED Intake Note: Patient presents today to establish treatment for Type 2 Diabetes Mellitus: Last Diabetic eye exam was on: 12/23/2023, [facility] Last Podiatry exam was on: Does not see a Coal Drier Operator Most recent HbA1c: 6.7%, 04/21/2024 Random Glucose- 174 mg/dL, Today Barrel Painter Required: No Accompanied by: Sister/OFF PREMISE SERVICE REPRESENTATIVE Allergies No Known Allergies Allergy (Verified 05/06/24 15:32) HPI Comments Details: 54 year old type 2 diabetic with CKD on peritoneal dialysis, retinopathy and neuropathy presents for diabetic follow up Med history: DKA, CVA with residual dysphagia, renal failure. anemia Seen 2 weeks ago We will start on freestyle Lida 3+ and submit prescription for CeQur Change to Tresiba as Lantus is not providing 24 hour coverage Sliding scale short-acting insulin given for Humalog New dosing Tresiba 20 units Humalog before each meal 80 -150 5 units on cequr 3 clicks 151-200 6 units 3 clicks 201-250 7-8 units 4 clicks 251-300 9-10 units 5 clicks Over 300 12 units 6 clicks Can consider adding pioglitazone 15 mg His glucose monitor was reviewed today. He has much improved glucose control, however has been having some post prandial hypoglycemia. The increase dose of tresiba has greatly improved his overall glucose control. ROS CONSTITUTIONAL: Denies weight loss, fever and chills. HEENT: Denies changes in vision and hearing. RESPIRATORY: Denies SOB and cough. CV: Denies palpitations and CP GI: Denies abdominal pain, nausea, vomiting and diarrhea. : Denies dysuria and urinary frequency. MSK: Denies new myalgia and joint pain. SKIN: Denies rash and pruritus. NEUROLOGICAL: Denies headache PSYCHIATRIC: Denies recent changes in mood. PHYSICAL EXAM: GENERAL: in WC, no acute distress EYES: EOMI. Anicteric. HENT: Moist mucous membranes. No scleral icterus. No cervical lymphadenopathy. LUNGS: Clear to auscultation bilaterally. CARDIOVASCULAR: Regular rate and rhythm. No murmur. No JVD. ABDOMEN: Soft, non-tender +bs EXTREMITIES: No edema. Non-tender. SKIN: No rashes or lesions. Warm. NEUROLOGIC: No focal neurological deficits. CN II-XII grossly intact PSYCHIATRIC: Cooperative. Appropriate mood and affect [facility] Medical History Essential hypertension 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 Metabolic acidosis Right foot ulcer Anxiety History of foot ulcer Obesity (BMI 30-39.9) Depression Rotator cuff arthropathy of left shoulder Vitamin D deficiency Allergic rhinitis Anemia Pure hypercholesterolemia Benign essential hypertension Diabetic polyneuropathy Type 2 diabetes mellitus with diabetic chronic kidney disease Erectile dysfunction Type 2 diabetes mellitus with hyperglycemia, with long-term current use of insulin Type 2 diabetes mellitus with diabetic polyneuropathy Type 2 diabetes mellitus with chronic kidney disease 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 LDL goal <70 Surgical History History of nasal surgery Family History Father Lung cancer Mother Hypertension Coronary artery disease CVD (cardiovascular disease) TIA (transient ischemic attack) Sister Diabetes Maternal Uncle Diabetes Other Mental health problem Social History Household Members: Family Housing: House Do you presently have visiting nurse or other home services: Yes Alcohol intake: current Alcohol intake frequency: holidays/special occasions only Comment: sister in room Patient Tobacco Use Status: Never used Tobacco e-Cigarette/Vaping Use: Never Used Second Hand Smoke Exposure: Yes service: No Current occupational status: unemployed Cognitive needs: Yes (wheelchair, walker) Hearing needs: No Vision needs: No Physical Exam Vital Signs: Last Vital Signs Pulse 96 05/06/24 15:33 BP 138/78 05/06/24 15:33 BMI result Body Mass Index 32.7 Results Reviewed Results Reviewed: Laboratory Last Values Glucose (Clinic) 179 mg/dL (60-115) H 05/06/24 15:45 Assessment & Plan Assessment & Plan (1) Type 2 diabetes mellitus: Code(s): E11.9 - Type 2 diabetes mellitus without complications Category: Medical Qualifiers: Diabetes mellitus complication detail: without coma Diabetes mellitus complication status: with hypoglycemia Diabetes mellitus mcc insulin use: with terminal operations manager use Qualified Code(s): E11.649 - Type 2 diabetes mellitus with hypoglycemia without coma; 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 Decrease cequr dosing to previous dosing. Short term follow up (2) Prolonged QT interval: Code(s): R94.31 - Abnormal electrocardiogram [ECG] [EKG] Category: Medical Plan: Added to diagnosis list. Had cardiology consults while hospitalized in October. Could ask for outpatient referral. Medications: Changed From insulin lispro 80-150 6 units 3 clicks 151-200 6 units 3 clicks 201- 250 8 units 4 clicks 250-300 10 units 5 clicks over 300 12 units 6 clicks will need additional insulin to fill device 30 days 20 mL 3RF To insulin lispro 80 -150 5 units on cequr 3 clicks 151-200 6 units 3 clicks 201-250 7-8 units 4 clicks 251-300 9-10 units 5 clicks Over 300 12 units 6 clicks 20 mL 3RF 30 days Coding Level of Care Code Est Pt Level 4 (04212) Diagnoses Type 2 diabetes mellitus with hypoglycemia without coma, with long-term current use of insulin E11.649; Z79.4 Diabetes mellitus complication detail: without coma Diabetes mellitus complication status: with hypoglycemia Diabetes mellitus mcc insulin use: with terminal operations manager use Prolonged QT interval R94.31
[2024-05-06 15:33] VITALS: BP 138/78; PULSE 96; BMI 32.7
[2024-05-06 15:49] LABS: Glucose, Whole Blood 179 mg/dL (60-115)
== END 2024-05-06 16:01 | disposition home or self-care (01) ==
PROVIDERS: PCP Internal Medicine; Visit Provider Internal Medicine
DX: E11.649 Type 2 diabetes mellitus with hypoglycemia without coma (principal); Z79.4 Long term (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 of insulin; R94.31 Abnormal electrocardiogram [ECG] [EKG]

== ENCOUNTER → 2024-05-06 15:29 | Outpatient (BNVA) | payer OTHER, SELFPAY | PROVIDERS: PCP Internal Medicine; Visit Provider Internal Medicine | DX: E11.649 Type 2 diabetes mellitus with hypoglycemia without coma (principal); R94.31 Abnormal electrocardiogram [ECG] [EKG]; Z79.4 Long term (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 of insulin | CPT/HCPCS: 82947; 99212 ==

== ENCOUNTER 2024-05-17 14:02 | Outpatient (AMB) | payer OTHER, SELFPAY ==
--- NOTE | 2024-05-17 14:59 | MHC.AMDMED ---
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 Metabolic acidosis Right foot ulcer Anxiety History of foot ulcer Obesity (BMI 30-39.9) Depression Rotator cuff arthropathy of left shoulder Vitamin D deficiency Allergic rhinitis Anemia Pure hypercholesterolemia Benign essential hypertension Diabetic polyneuropathy Type 2 diabetes mellitus with diabetic chronic kidney disease Erectile dysfunction Type 2 diabetes mellitus with hyperglycemia, with long-term current use of insulin Type 2 diabetes mellitus with diabetic polyneuropathy Type 2 diabetes mellitus with chronic kidney disease 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 LDL goal <70 Surgical History History of nasal surgery Family History Father Lung cancer Mother Hypertension Coronary artery disease CVD (cardiovascular disease) TIA (transient ischemic attack) Sister Diabetes Maternal Uncle Diabetes Other Mental health problem Social History Household Members: Family Housing: House Do you presently have visiting nurse or other home services: Yes Alcohol intake: current Alcohol intake frequency: holidays/special occasions only Comment: sister in room Patient Tobacco Use Status: Never used Tobacco e-Cigarette/Vaping Use: Never Used Second Hand Smoke Exposure: Yes service: No Current occupational status: unemployed Cognitive needs: Yes (wheelchair, walker) Hearing needs: No Vision needs: No Assessment & Plan Assessment & Plan (1) Type 2 diabetes mellitus with chronic kidney disease: Code(s): E11.22 - Type 2 diabetes mellitus with diabetic chronic kidney disease Qualifiers: Diabetes mellitus intermodal dispatcher insulin use: with [facility] Chronic kidney disease stage: stage 3 (moderate) Chronic kidney disease stage 3 subtype: stage 3b (GFR 30-44) Qualified Code(s): E11.22 - Type 2 diabetes mellitus with diabetic chronic kidney disease; N18.32 - Chronic kidney disease, stage 3b; Z79.4 - residential (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 of insulin Plan: Pt at visit forCeQue Simplicity Training Pt brought CeQue patch, logistics/shipper, vial of mealtime insulin and change by stickers Patient's prescription reads take Instructed patient to wash your hands Demonstrated for patient how to fill syringe from vial, and insert, needle to fill patch Then remove air bubbles from patch, by viewing through clear window below blue cap To prime patch after air bubble has been removed proceed with 4 clicks Apply placed sticker, to patch, count forward 4 days Prepare site where you will place patch with either alcohol or soap and water, avoid waist band and belt line Do not insert through scar tissue, piercings and tattoos be sure to place patch at least 2 in from belly button. If you have excess body hair adhesive will attach better to clean shaven skin Instructed patient to be sure to rotate patch regularly Place patch in logistics/shipper while holding logistics/shipper with both hands use thumbs to push down on blue cap in on patch Push until you hear a click Instructed patient not to unlock green button until logistics/shipper is against prepared site Squeeze at both ends a blue cap and carefully began to pull cap, this should also remove adhesive pad liner. Be cautious of exposed needle, check to make sure needle is not bent Please patch on your body, slide yellow safety and press green button down Press logistics/shipper firmly for 10 seconds, remove logistics/shipper by lifting it away To remove needle squeeze clear sides of credit portfolio advisor at the base Discard needle in sharps container Press down firmly on patch with palm of your hand for 10 seconds Patient left visit with CeQue patch in place Instructed patient on how to administer mealtime insulin, instructed patient that each click is equal to 2 units of mealtime insulin Patient will follow-up with outreach educator as instructed Learning objectives: The patient was provided with verbal and written education on the following topics as outlined below. The patient met all learning objectives and was able to verbalize understanding and provide teach back of education topics discussed . The patient was provided with the opportunity to ask questions and all questions were answered. Patient Assessment Assess patient education level/literacy/barriers, history of CVA, limited mobility, patient is currently in a wheelchair. Patient is currently on peritoneal dialysis Patient questions/concerns, patient at visit with 2 of his primary caretakers What is Diabetes? Pathophysiology How the body produces and uses insulin Identify type of DM Risk factors Signs of Diabetes Brief overview of Diabetes Management Monitoring blood sugar Following a meal plan Regular exercise Maintaining a healthy weight Taking medication as needed Members of the care team (PCP, RN, MA, RD, CDE, medical information officer) Blood glucose monitoring When/how often to test Target blood sugar ranges Patient uses freestyle Lida 3 to review glucose Average glucose for the past 14 days 169 mg/dL Above target 36% At target 63% Below target 1% Introduction to Nutrition Importance of healthy diet in managing DM Diet is personalized to individual preference Review patient?s regular diet/food preferences Who prepares meals/does food shopping/ Dining out?/ Barriers? How diet effects glucose Eating 3 balanced meals a day with small, healthy snacks between meals Review food groups Carbohydrates: What is a carbohydrate/Which food/food groups are considered carbohydrates Effect of carbohydrates on blood glucose Portion sizes Reading food labels Basic carb counting (if applicable per nursing assessment) Plate method Meal planning Recommendations: Follow plate method, consistent carbs and read nutritional labels. Smart Goal: Identify foods and current meal plan that contain carbohydrate Educational Materials: The patient was provided with the following written educational materials: Planning Healthy Meals Handout Patient Response to instructions: Comprehension of Instructions: Fair Readiness to make changes: Contemplation How confident they feel about making changes: poor Portions of this note were created using voice recognition software, please excuse any words or phrases that may have been misinterpreted. Patient Instructions: Insulin Plan 80 -150 4 units on Cequr 2 clicks 151-200 6 units 3 clicks 201-250 8 units 4 clicks 251-300 10 units 5 clicks Over 301 12 units 6 clicks Follow up in 2 months Include regular daily activity. ADA recommends 30 minutes of exercise 5 days a week. Weight loss talk to PCP or Drywall Professional before starting new plan. Test blood sugar as directed; Fasting and 2hpp largest meal. Watch trends in results. Utilize results and to assess how food, physical activity and medications affect blood sugar results. Bring glucometer or CGM to next visit. Be knowledgeable about diabetes medication, its action, side effects, efficacy, toxicity, prescribed dosage, appropriate timing and frequency of administration, effect of missed and delayed doses and instructions for storage, travel and safety. Problem solving techniques to monitor hypo/hyperglycemia episodes and treatments. Reduce risk reduction behaviors, smoking cessation, regular eye, foot and dental examinations. Coding Level of Care Code Est Pt Level 1 (09185) Diagnoses Type 2 diabetes mellitus with stage 3b chronic kidney disease, with long-term current use of insulin E11.22; N18.32; Z79.4 Diabetes mellitus [facility]: with [facility] Chronic kidney disease stage: stage 3 (moderate) Chronic kidney disease stage 3 subtype: stage 3b (GFR 30-44)
== END 2024-05-17 15:00 | disposition home or self-care (01) ==
PROVIDERS: PCP Internal Medicine; Visit Provider Registered Nurse Diabetes Educator
DX: E11.22 Type 2 diabetes mellitus with diabetic chronic kidney disease (principal); N18.32 Chronic kidney disease, stage 3b; Z79.4 Long term (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 of insulin

== ENCOUNTER → 2024-05-17 14:02 | Outpatient (BNVA) | payer OTHER, SELFPAY | PROVIDERS: PCP Internal Medicine; Visit Provider Registered Nurse Diabetes Educator | DX: E11.65 Type 2 diabetes mellitus with hyperglycemia (principal); E11.22 Type 2 diabetes mellitus with diabetic chronic kidney disease; E11.42 Type 2 diabetes mellitus with diabetic polyneuropathy; N18.32 Chronic kidney disease, stage 3b; Z79.4 Long term (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 of insulin | CPT/HCPCS: 99211 ==

== ENCOUNTER 2024-06-15 12:53 | Outpatient (AMB) | payer OTHER, SELFPAY ==
--- OUTSIDE RECORDS SUMMARY | 2024-06-15 12:55 | XMS_ITS ---
Author Name Rosa Maria, Clinic Address [address] [place] [id number] Phone [phone] Organization [facility] e, NA DOCUMENT DISCLAIMER Multiple document versions may exist, please be sure you review the latest version. The information in the [facility] Continuity of Care Document represents a summary of certain health and medical information. It may not contain the complete medical history for the patient and should be independently verified. The represented time in the document is Eastern Time. PROBLEMS Problem Code Status Onset Date Hyperkalemia E87.5 Active March 16 End stage renal disease N18.6 Active 2023 Infection and inflammatory r eaction due to other cardiac and vascular devices, implants and grafts, sequela T82.7XXS Active March 16, 2024 Unspecified injury of muscle (s) and tendon(s) of the rotator cuff of left shoulder, sequela S46.002S Active March 12, 2024 Anxiety disorder, unspecified F41.9 Active March 12, 2024 Allergic rhinitis, unspecified J30.9 Active March 12, 2024 Essential (primary) hypertension I10 Active March 12, 2024 Male erectile disorder F52.21 Active 2023 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, unspecified E78.5 Active March 12, 2024 Allergy, unspecified, initial encounter T78.40XA A ctive March 12, 2024 Anaphylactic shock, unspecified, initial encounter T78 .2XXA Active March 12, 2024 Other disorders of phosphorus metabolism E83.39 Active March 12, 2024 Coagulation defect, unspecified D68.9 Active March 12, 2024 Angina pectoris, unspecified I20.9 Active March 12, 2024 Pruritus, unspecified L29.9 Active 2023 Fever, unspecified R50.9 Active March 12, 2024 Pain, unspecified R52 Active March 12, 2024 Headache, unspecified R51.9 Active 2023 Encounter for immunization Z23 Active S eptember 2023 Encounter for screening for respiratory tuberculosis Z11.1 Active March 12, 2024 Nausea R11.0 Active March 12 024 Diarrhea, unspecified R19.7 Active 2023 Other abnormalities of breathing R06.89 Active March 12, 2024 Iron deficiency anemia, unspecified D50.9 Activ e March 12, 2024 Type 2 diabetes mellitus wit h diabetic chronic kidney disease E11.22 Active March 12, 2024 Major depressive disorder, s clarisa episode, unspecified F32.9 Active February 24, 2024 Dependence on renal dialysis Z99.2 Active February 24, 2024 Personal history of transien t ischemic attack (TIA), and cerebral infarction without residual deficits Z86.73 Active February 24, 2024 FPC (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 of insulin Z79.4 Active February 24, 2024 Contact with and (suspected) exposure to environmental tobacco smoke (acute) (chronic) Z77.22 Active February 24, 2024 Secondary hyperparathyroidism of renal origin N25.81 Active February 24, 2024 Chronic kidney disease, stage 5 N18.5 Active February 24, 2024 Hypertensive chronic kidney disease with stage 5 chronic kidney disease or end stage renal disease I12.0 Active February 24, 2024 Pure hypercholesterolemia, unspecified E78.00 Ac tive February 24, 2024 Vitamin D deficiency, unspecified E55.9 Active February 24, 2024 Type 2 diabetes mellitus wit h diabetic polyneuropathy E11.42 Active February 24, 2024 Type 2 diabetes mellitus wit h unspecified diabetic retinopathy without macular edema E11.319 Active 2023 Anemia in chronic kidney disease D63.1 Active February 24, 2024 ALLERGIES AND ADVERSE REACTIONS No Known Allergies SOCIAL HISTORY Tobacco Use Status Tobacco Type Never smoker - Caregiver Characteristics Need Level ADL Type Relationship of Caregiver Requires some assistance Shopping Meal preparation Laundry 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 Characteristics of Home environment Housing Status Patient Resides With House Sister Gender and Sex Information Gender Identity Sexual Orientation Male No Information Avail able MEDICATIONS Prescribed Medications for Dialysis Treatments Medication Instructions Dosage Route Start Date End Date Stat us Iron Sucrose (Venofer) Every 2 weeks 200 mg Intravenous - push April 29, 2024 April 28, 2025 Active Mircera Every 4 weeks 150 mcg Subcutaneous June 04, 2024 June 03, 2025 Active Home Medications Medication Instructions Dosage Route Start Date End Date Status atorvastatin 80 mg Take by mouth once a day 1 tablet ORAL March 19, 2024 Active calcitriol 0.25 mcg Take by mouth 1 capsule ORAL April 29, 2024 Active ergocalciferol (vitamin D2) 1,250 mcg (50,000 unit) Take by mouth 1 capsule ORAL March 23, 2024 Active furosemide 40 mg Take by mouth once a day 1 tablet ORAL April 23, 2024 Active Humalog KwikPen Insulin 100 unit/mL Inject subcutaneously three times a day with meals SUBCUTANEOUS April 23, 2024 Active hydralazine 50 mg Take by mouth three times a day 1 tablet ORAL May 25, 2024 Active losartan 25 mg Take by mouth once a day 1 tablet ORAL April 29, 2024 Active omeprazole 20 mg Take by mouth twice a day 2 tablet ORAL March 19, 2024 Active oxycodone 5 mg Take by mouth three times a day as needed for pain 1 tablet ORAL March 19, 2024 Active Tresiba FlexTouch U-100 100 unit/mL (3 mL) Inject subcutaneously every night at bedtime 20 unit SUBCUTANEOUS April 23, 2024 Active VITAL SIGNS Treatment Vital Signs Vital Sign Value Date / Time Blood Pressure-sitting 151/79 mmHg June 14, 2024 12:00 AM Heart Rate 79 beats per minute June 14, 2024 12:00 AM Temperature 98.5 deg. F June 14 12:00 AM Blood Sugar 69 mg/dL June 14 12:00 AM Weight Vital Sign Value Date / Time Estimated Dry Weight 91.5 kg April 11:59 PM Post-Dialysis 98.41 kg June 14 12:00 AM Other Other Value Date / Time Height 170.18 cm April 13, 2024 12:00 AM Body Mass Index 31.66 kg/m2 May 31 07:51 PM LAB RESULTS Hematology Result Type Result Value Relevant Referen ce Range Interpretation Date Ferritin 103 ng/mL 22 - 322 ng/mL - March Iron 55 mcg/dL 45 - 160 mcg/dL - March TIBC (Calc) 323 mcg/dL 185 - 515 mcg/dL - March 19, 2024 UIBC/TIBC 268 mcg/dL 155 - 355 mcg/dL - March 19, 2024 Transferrin Sat. (Calc) 17 % 20 - 55 % Low March 19, 2024 Hemoglobin x 3 24.6 % 42.0 - 54.0 % Low March 19, 2024 Platelets 181 1000/mcL 130 - 400 1000/mcL - 2023 RDW 15.1 % 11.5 - 14.5 % High March 19, 2024 MCH 30.0 pg 27.0 - 31.0 pg - March MCHC 32.1 g/dL 30.0 - 36.0 g/dL - March 19, 2024 WBC (No Diff) 5.55 1000/mcL 4.80 - 10.80 1000/mcL - March 19, 2024 Hemoglobin x 3 25.2 % 42.0 - 54.0 % Low April 02, 2024 Platelets 159 1000/mcL 130 - 400 1000/mcL - Nove mb2023 Hemoglobin x 3 35.7 % 42.0 - 54.0 % Low Novembe r 2023 Ferritin 250 ng/mL 22 - 322 ng/mL - April Iron 47 mcg/dL 45 - 160 mcg/dL - April 23, 2024 UIBC/TIBC 224 mcg/dL 155 - 355 mcg/dL - April 23, 2024 TIBC (Calc) 271 mcg/dL 185 - 515 mcg/dL - 2023 Transferrin Sat. (Calc) 17 % 20 - 55 % Low April 23 WBC (No Diff) 5.85 1000/mcL 4.80 - 10.80 1000/mcL - April 23, 2024 RDW 14.9 % 11.5 - 14.5 % High April MCHC 31.8 g/dL 30.0 - 36.0 g/dL - April 23, 2024 MCH 29.9 pg 27.0 - 31.0 pg - April Hemoglobin x 3 33.6 % 42.0 - 54.0 % Low Novembe r 2023 Platelets 158 1000/mcL 130 - 400 1000/mcL - Dece 2023 HGB 10.8 g/dL 14.0 - 18.0 g/dL Low May 25, 2024 RDW 14.0 % 11.5 - 14.5 % - May MCHC 32.5 g/dL 30.0 - 36.0 g/dL - May 25, 2024 MCH 28.9 pg 27.0 - 31.0 pg - May 162023 Hemoglobin x 3 32.4 % 42.0 - 54.0 % Low [facility] r 2023 HCT 33.4 % 42.0 - 52.0 % Low May RBC 3.76 mill/mcL 4.70 - 6.10 mill/mcL Low May 25, 2024 WBC (No Diff) 5.27 1000/mcL 4.80 - 10.80 1000/mcL - May 25, 2024 Transferrin Sat. (Calc) 42 % 20 - 55 % - May 25 TIBC (Calc) 254 mcg/dL 185 - 515 mcg/dL - 2023 Ferritin 266 ng/mL 22 - 322 ng/mL - May 162023 UIBC/TIBC 148 mcg/dL 155 - 355 mcg/dL Low May 25, 2024 Iron 106 mcg/dL 45 - 160 mcg/dL - May 25, 2024 Retic HGB (CHr) 32.1 pg 25.4 - 31.8 pg High Decem promise 2023 Metabolic/Renal Result Type Result Value Relevant Referen ce Range Interpretation Date BUN/Creat Ratio 13.0 10.0 - 20.0 - March 19, 2024 Creatinine, Serum 5.53 mg/dL 0.60 - 1.30 mg/dL High March 19, 2024 Potassium 4.2 mEq/L 3.5 - 5.1 mEq/L - March Sodium 141 mEq/L 136 - 145 mEq/L - March Bicarbonate 20 mEq/L 22 - 29 mEq/L Low March Chloride 105 mEq/L 96 - 108 mEq/L - March Hemoglobin A1c 6.0 % 4.8 - 5.9 % High March BUN 72 mg/dL 6 - 19 mg/dL High March 19, 2024 Urea Nitrogen, Urine, Timed 388 mg/dL No Reference Range Provided - March 19, 2024 Creatinine Clearance, Urine 10.4 mL/min 94.0 - 122.0 mL/min Low April 06, 2024 BUN 76 mg/dL 6 - 19 mg/dL High April 06, 2024 Creatinine, Serum 5.91 mg/dL 0.60 - 1.30 mg/dL High April 06, 2024 BUN/Creat Ratio 12.9 10.0 - 20.0 - April 06, 2024 Urea Nitrogen, Urine, Timed 420 mg/dL No Reference Range Provided - April 06, 2024 Hemoglobin A1c 7.0 % 4.8 - 5.9 % High April 23, 2024 BUN 41 mg/dL 6 - 19 mg/dL High April 23, 2024 Creatinine, Serum 4.43 mg/dL 0.60 - 1.30 mg/dL High April 23, 2024 BUN/Creat Ratio 9.3 10.0 - 20.0 Low April 23, 2024 Sodium 137 mEq/L 136 - 145 mEq/L - April 23, 2024 Potassium 3.3 mEq/L 3.5 - 5.1 mEq/L Low April 23, 2024 Chloride 97 mEq/L 96 - 108 mEq/L - April Bicarbonate 25 mEq/L 22 - 29 mEq/L - April Creatinine Clearance, Urine 24.0 mL/min 94.0 - 122.0 mL/min Low April 23, 2024 nPCR 1.17 g/kg/day No Reference Ran ge Provided - April 23, 2024 Urea Nitrogen, Urine, Timed 363 mg/dL No Reference Range Provided - April 23, 2024 Sodium 144 mEq/L 136 - 145 mEq/L - May 25, 2024 BUN/Creat Ratio 9.2 10.0 - 20.0 Low May 25, 2024 Creatinine, Serum 4.78 mg/dL 0.60 - 1.30 mg/dL High May 25, 2024 BUN 44 mg/dL 6 - 19 mg/dL High May 25, 2024 Bicarbonate 30 mEq/L 22 - 29 mEq/L High May 162023 Chloride 106 mEq/L 96 - 108 mEq/L - May 162023 Potassium 4.4 mEq/L 3.5 - 5.1 mEq/L - May 25, 2024 Bone/Mineral Result Type Result Value Relevant Referen ce Range Interpretation Date Vitamin D 25 Hydroxy 29.0 ng/mL 30.0 - 100.0 ng/mL Low March 19, 2024 Corrected Ca x P Product 46 0 - 54 - March 19, 2024 Magnesium 2.0 mg/dL 1.6 - 2.6 mg/dL - March Phosphorus 5.1 mg/dL 2.6 - 4.5 mg/dL High March Calcium, Total 9.1 mg/dL 8.4 - 10.2 mg/dL - Octo promise 2023 Alkaline Phosphatase 70 U/L 40 - 129 U/L - Oc tob2023 Ca x P Product 46 0 - March PTH-Intact, Plasma 229 pg/mL 16 - 80 pg/mL High Oct charlie 2023 PTH-Intact, Plasma 154 pg/mL 16 - 80 pg/mL High Nov emb2023 Calcium, Total 8.6 mg/dL 8.4 - 10.2 mg/dL - Nove mb2023 Phosphorus 2.9 mg/dL 2.6 - 4.5 mg/dL - April 23, 2024 Ca x P Product 25 0 - April Alkaline Phosphatase 98 U/L 40 - 129 U/L - No vember 2023 Corrected Ca x P Product 26 0 - April 23 Magnesium 1.6 mg/dL 1.6 - 2.6 mg/dL - April 23, 2024 Phosphorus 4.1 mg/dL 2.6 - 4.5 mg/dL - May 25, 2024 Calcium, Total 8.3 mg/dL 8.4 - 10.2 mg/dL Low Dece mb2023 Ca x P Product 34 0 - - May 162023 Magnesium 1.9 mg/dL 1.6 - 2.6 mg/dL - May 25, 2024 Corrected Ca x P Product 36 0 - May 25 PTH-Intact, Plasma 160 pg/mL 16 - 80 pg/mL High Dec 2023 Liver/Nutrition Result Type Result Value Relevant Reference Range Interpre tation Date Glucose 226 mg/dL 70 - 100 mg/dL High March SGOT (AST) 16 U/L 13 - 39 U/L - March 19 024 Albumin (BCG) 4.1 g/dL 3.5 - 5.2 g/dL - March 19, 2024 SGPT (ALT) 13 U/L 7 - 52 U/L - March 19 24 SGOT (AST) 14 U/L 13 - 39 U/L - April 23, 2024 SGPT (ALT) 16 U/L 7 - 52 U/L - April 23 024 Albumin (BCG) 3.8 g/dL 3.5 - 5.2 g/dL - 2023 Glucose 437 mg/dL 70 - 100 mg/dL High April Glucose 113 mg/dL 70 - 100 mg/dL High May 162023 Albumin (BCG) 3.3 g/dL 3.5 - 5.2 g/dL Low Decembe r 2023 Lipid Result Type Result Value Relevant Referen ce Range Interpretation Date Triglycerides 68 mg/dL 0 - 149 mg/dL - March 19, 2024 Cholesterol, Total 126 mg/dL 0 - 199 mg/dL - Mar VLDL (Calculated) 14 mg/dL 10 - 30 mg/dL - 2023 HDL 65 mg/dL No Reference Ran ge Provided - March 19, 2024 Cholesterol HDL Ratio 1.9 0.0 - 4.5 - Mar LDL, (Calculated) 47 mg/dL 0 - 99 mg/dL - 2023 Immunochemistry Result Type Result Value Relevant Reference Range Interpre tation Date HCV s/co ratio 0.02 0.00 - 0.79 - March Trace Elements Result Type Result Value Relevant Reference Range Interpre tation Aluminum < 5 mcg/L 0 - 10 mcg/L - March 19, 2024 Peritoneal Dialysis Testing Result Type Result Value Relevant Referen ce Range Interpretation Date Total Urea Nitrogen, Urine 8.5 g/24 hr 12.0 - 20.0 g/24 hr Low March 19, 2024 Urea Clearance, Urine 8.2 mL/min 64.0 - 99.0 mL/min Low March 19 Total Urea Nitrogen, Urine 7.1 g/24 hr 12.0 - 20.0 g/24 hr Low April 06, 2024 Urea Clearance, Urine 6.5 mL/min 64.0 - 99.0 mL/min Low April 06 Creatinine, Urine 62.7 mg/dL No Reference R ibis Provided - April 06, 2024 Total Creatinine, Urine 1.1 g/24 hr 0.7 - 1.8 g/24 hr - April 06 Creatinine Clearance - Measured PD 338 L/wk No Reference Range Provided - April 23, 2024 Total Urea Nitrogen, Urine 7.3 g/24 hr 12.0 - 20.0 g/24 hr Low April 23, 2024 Urea Clear, Urine Norm 10.2 mL/min 64.0 - 99.0 mL/min Low April 23, 2024 Urea Clearance, Urine 12.3 mL/min 64.0 - 99.0 mL/min Low April 23, 2024 Urea Clear, Urine Norm Wkly 124 L/wk No Reference Range Provided - April 23, 2024 Creatinine, Urine 92.5 mg/dL No Reference R ibis Provided - April 23, 2024 Total Creatinine, Urine 1.9 g/24 hr 0.7 - 1.8 g/24 hr High April 23, 2024 Creat Clear, Urine Norm Wkly 242 L/wk No Reference Range Provided - April 23, 2024 Creat Clear, Urine Weekly 292.3 L/wk No Reference Range Provided - April 23, 2024 Wkly Creat Cl (Resid + Dial) 280 L/wk No Reference Range Provided - April 23, 2024 Urea Nitrogen, PDF 24 Hr 3567.0 mg/24 hr No Reference Range Provided - April 23, 2024 PD Kt/V 24 Hr Dialysate Urea 41 mg/dL No Reference Range Provided - April 23, 2024 Urea Clearance, PD Fluid 6.0 mL/min No Reference Range Provided - April 23, 2024 Urea Clearance, PDF Norm 5.0 mL/min No Reference Range Provided - April 23, 2024 Urea Clear, Total Norm Wkly 184 L/wk No Reference Range Provided - April 23, 2024 Urea Clear, PDF Norm Wkly 60 L/wk No Reference Range Provided - April 23, 2024 Creatinine, PDF 24 Hr 295.8 mg/24 hr No Reference Range Provided - April 23, 2024 Creatinine, PD Fluid, 24 Hr Uncorrected 3.5 mg/dL No Reference Range Provided - April 23, 2024 Creatinine, PDF Timed Cor 3.4 mg/dL No Reference Range Provided - April 23, 2024 Glucose, PDF Timed 692 mg/dL No Reference Range Provided - April 23, 2024 Creatinine Clear, PDF 4.6 mL/min No Reference Range Provided - April 23, 2024 Creatinine Clear, PDF Norm 3.8 mL/min No Reference Range Provided - April 23, 2024 Creat Clear, PDF Weekly 46 L/wk No Reference Range Provided - April 23, 2024 Kt/V, Residual 2.57 No Reference Ran ge Provided - April 23, 2024 PNA 97 g/day No Reference Ran ge Provided - April 23, 2024 Creatinine, Dialysate (Standard PET) 0 Hr Uncorrected 0.8 mg/dL No Reference Range Provided - May 25, 2024 Creatinine, Dialysate (Standard PET) 0 Hr 0.4 mg/dL No Reference Range Provided - May 25, 2024 Glucose, Dialysate (Standard PET) 0 Hr 1993 mg/dL No Reference Range Provided - May 25, 2024 D P Ratio PET 0 Hr 0.08 No Reference Range Provided - May 25, 2024 D DO Ratio PET 0 Hr 1.00 No Reference Range Provided - May 25, 2024 Creatinine, Dialysate (Standard PET) 2 Hr Uncorrected 2.7 mg/dL No Reference Range Provided - May 25, 2024 Creatinine, Dialysate (Standard PET) 2 Hr 2.5 mg/dL No Reference Range Provided - May 25, 2024 Glucose, Dialysate (Standard PET) 2 Hr 1047 mg/dL No Reference Range Provided - May 25, 2024 D P Ratio PET 2 Hr 0.52 No Reference Range Provided - May 25, 2024 D DO Ratio PET 2 Hr 0.53 No Reference Range Provided - May 25, 2024 Creatinine, Dialysate (Standard PET) 4 Hr Uncorrected 3.3 mg/dL No Reference Range Provided - May 25, 2024 Creatinine, Dialysate (Standard PET) 4 Hr 3.2 mg/dL No Reference Range Provided - May 25, 2024 Glucose, Dialysate (Standard PET) 4 Hr 614 mg/dL No Reference Range Provided - May 25, 2024 D P Ratio PET 4 Hr 0.67 No Reference Range Provided - May 25, 2024 D DO Ratio PET 4 Hr 0.31 No Reference Range Provided - May 25, 2024 Creatinine Transport Average High No Referenc e Range Provided - May 25, 2024 Glucose Transport Average High No Reference R ibis Provided - May 25, 2024 Infectious Diseases Result Type Result Value Relevant Referen ce Range Interpretation Date Hep B Surface Ab (anti-HBs) < 10 mIU/mL No Reference Range Provided - March 19, 2024 HCV Ab (anti-HCV) Nonreactive No Reference R ibis Provided - March 19, 2024 Hep B core Ab Total (anti-HBc) Negative No Reference Range Provided - March 19, 2024 Hep B Surface Ag (HBsAg) Negative No Reference Range Provided - May 25, 2024 DIALYSIS PRESCRIPTION CAPD Data Element Value Order Date/Time May 04, 2024 Frequency 7X Week Treatment Days [id number] n Estimated Dry Weight 91.5 kg Calcium Content in Bag (mEq/L) 2.5 mEq/L Magnesium Content in Bag (mEq/L) 0.5 mEq /L Dextrose Content in Bag % 1.5; 2.5; 4.25 % Total Number of Exchanges 3 Daytime Fill Volume 2000 mL Minimum Dwell Time 240 min Dialysis Access Peritoneal Dialysis- PD Catheter-Double Cuff Coiled, Left Lower Quadrant of Abdomen Access Placed on January 22, 2024 IMMUNIZATIONS Vaccine Date Dose Route Status HEPLISAV-B April 28, 2024 20.0 mcg Intramuscular Comp leted Flu Vaccine - Flucelvax Trivalent March 23, 2024 0.5 mL Intramuscular Completed TRANSPLANT WAITLIST STATUS No Information on Transplant Waitlist Status ADVANCE DIRECTIVES Directive Description Ordered By Effective Date Resuscitation status Full Code [facility] Mar 19, 2024 DIALYSIS TREATMENTS (CAPD/CCPD treatments include self-reported information entered by the patient and may not contain the complete representation of a treatment.) CAPD Date Exchanges Fill Volume Exchange Solution Dialysis Access Meds-entered by patient June 14, 2024 1 of 3 2000 mL Dextrose 2.5% Peritoneal Dialysis-PD Catheter-Double Cuff Coiled, Left Lower Quadrant of Abdomen Access Placed on January 22, 2024 - 2 of 3 2000 mL Dextrose 1.5% 3 of 3 2000 mL Dextrose 1.5% Vitals Time Weight BP Heart Rate Temperature Blood Sugar June 14, 2024 (AM) 98.41 kg 151/79 mmHg 79 beats per minute 98.5 deg. F 69 mg/dL CAPD Date Exchanges Fill Volume Exchange Solution Dialysis Access Meds-entered by patient June 13, 2024 1 of 3 2000 mL Dextrose 1.5% Peritoneal Dialysis-PD Catheter-Double Cuff Coiled, Left Lower Quadrant of Abdomen Access Placed on January 22, 2024 - 2 of 3 2000 mL Dextrose 2.5% 3 of 3 2000 mL Dextrose 1.5% Vitals Time Weight BP Heart Rate Temperature Blood Sugar June 13, 2024 (AM) 97.96 kg 168/74 mmHg 76 beats per minute 98.4 deg. F 86 mg/dL CAPD Date Exchanges Fill Volume Exchange Solution Dialysis Access Meds-entered by patient June 12, 2024 1 of 3 2000 mL Dextrose 1.5% Peritoneal Dialysis-PD Catheter-Double Cuff Coiled, Left Lower Quadrant of Abdomen Access Placed on January 22, 2024 - 2 of 3 2000 mL Dextrose 1.5% 3 of 3 2000 mL Dextrose 2.5% Vitals Time Weight BP Heart Rate Temperature Blood Sugar June 12, 2024 (AM) 93.88 kg 163/79 mmHg 76 beats per minute 98.1 deg. F 165 mg/d L
[2024-06-15 13:13] VITALS: BP 140/54; PULSE 76; O2SAT 96
--- NOTE | 2024-06-15 13:13 | HO.NEPHOV ---
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 Metabolic acidosis Right foot ulcer Anxiety History of foot ulcer Obesity (BMI 30-39.9) Depression Rotator cuff arthropathy of left shoulder Vitamin D deficiency Allergic rhinitis Anemia Pure hypercholesterolemia Benign essential hypertension Diabetic polyneuropathy Type 2 diabetes mellitus with diabetic chronic kidney disease Erectile dysfunction Type 2 diabetes mellitus with hyperglycemia, with long-term current use of insulin Type 2 diabetes mellitus with diabetic polyneuropathy Type 2 diabetes mellitus with chronic kidney disease 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 LDL goal <70 Surgical History History of nasal surgery Family History Father Lung cancer Mother Hypertension Coronary artery disease CVD (cardiovascular disease) TIA (transient ischemic attack) Sister Diabetes Maternal Uncle Diabetes Other Mental health problem Social History Household Members: Family Housing: House Do you presently have visiting nurse or other home services: Yes Alcohol intake: current Alcohol intake frequency: holidays/special occasions only Comment: sister in room Patient Tobacco Use Status: Never used Tobacco e-Cigarette/Vaping Use: Never Used Second Hand Smoke Exposure: Yes service: No Current occupational status: unemployed Cognitive needs: Yes (wheelchair, walker) Hearing needs: No Vision needs: No Physical Exam Vital Signs: Last Vital Signs Pulse 76 06/15/24 13:13 BP 140/54 H 06/15/24 13:13 Pulse Ox 96 06/15/24 13:13 Oxygen Delivery Method Room Air 06/15/24 13:13 Results Reviewed Nephrology Results: No Data to Display Assessment & Plan Assessment & Plan (1) Swelling of left hand: Code(s): M79.89 - Other specified soft tissue disorders Category: Medical (2) ESRD (end stage renal disease): Code(s): N18.6 - End stage renal disease Category: Medical Plan ordered doppler Orders: Orders US duplex arterial venous comp Today M79.89 - Other specified soft tissue disorders Medications: Changed From losartan 25 mg PO DAILY To losartan 50 mg PO DAILY 90 tabs 1RF Refilled hydralazine 100 mg PO TID 270 tabs 1RF 90 days Coding Level of Care Code Global (16885) Diagnoses Swelling of left hand M79.89 ESRD (end stage renal disease) N18.6
== END 2024-06-15 13:39 | disposition home or self-care (01) ==
PROVIDERS: PCP Internal Medicine; Visit Provider Internal Medicine Hypertension Specialist
DX: R22.32 Localized swelling, mass and lump, left upper limb (principal); N18.6 End stage renal disease
CPT/HCPCS: 99024

== ENCOUNTER → 2024-06-15 12:53 | Outpatient (BNVA) | payer OTHER, SELFPAY | PROVIDERS: PCP Internal Medicine; Visit Provider Internal Medicine Hypertension Specialist | DX: M79.89 Other specified soft tissue disorders (principal); N18.6 End stage renal disease | CPT/HCPCS: 99212 ==

== ENCOUNTER → 2024-06-16 | Outpatient (BNV) | payer OTHER, SELFPAY | PROVIDERS: PCP Internal Medicine; Visit Provider Internal Medicine Hypertension Specialist | DX: N18.6 End stage renal disease (principal) | CPT/HCPCS: 90962 ==

== ENCOUNTER 2024-06-22 11:21 | Outpatient (REF) | payer OTHER, SELFPAY ==
--- NOTE | ~2024-06-22 | US_ITS ---
CLINICAL HISTORY: M79.89 - left hand swelling r o dvt Venous duplex ultrasound left upper extremity Comparison: None Findings: Accessible deep venous segments are fully compressible with normal Doppler color flow and spectral tracings. IMPRESSION: 1. Negative for left upper extremity deep vein thrombosis. This document has been electronically signed by: Pritesh Miguel MD on 06/23/2024 15:35:59
--- OUTSIDE RECORDS SUMMARY | 2024-06-22 12:54 | XMS_ITS ---
Author Name Rosa Maria, Clinic Address [address] [place] [id number] Phone [phone] Organization [facility] e, NA DOCUMENT DISCLAIMER Multiple document versions may exist, please be sure you review the latest version. The information in the [facility] Continuity of Care Document represents a summary [...] residual deficits Z86.73 Active February 24, 2024 [facility] (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 of insulin Z79.4 Active February [...] Tobacco Type Never smoker - Caregiver Characteristics No Information Available Characteristics of Home environment No Information Available Gender and Sex Information Gender Identity Sexual Orientation Male No Information Avail able MEDICATIONS Prescribed Medications for Dialysis Treatments Medication Instructions Dosage Route Start Date End Date Stat us Mircera Every 4 weeks 150 mcg Subcutaneous June 04, 2024 June 03, 2025 Active Iron Sucrose (Venofer) Every 2 weeks 200 mg Intravenous - push April 29, 2024 April 28, 2025 Discontinued Home Medications Medication Instructions Dosage Route Start [...] Sign Value Date / Time Blood Pressure-sitting 151/75 mmHg June 12:00 AM Heart Rate 77 beats per minute June 21, 2024 12:00 AM Temperature 98.9 deg. F June 21, 2024 12:00 AM Blood Sugar 122 mg/dL June 21, 2024 12:00 AM Weight Vital Sign Value Date / Time Estimated Dry Weight 97 kg June 22, 2024 11:59 PM Post-Dialysis 99.77 kg June 21, 2024 12:00 AM Other Other Value Date / Time Height 170.18 cm April 13, 2024 12:00 AM Body Mass Index 31.66 kg/m2 May 31 07:51 PM LAB RESULTS Hematology Result Type Result Value Relevant Referen ce Range Interpretation Date Ferritin 103 ng/mL 22 - 322 ng/mL - March TIBC (Calc) 323 mcg/dL 185 - 515 mcg/dL - March 19, 2024 UIBC/TIBC 268 mcg/dL 155 - 355 mcg/dL - March 19, 2024 Transferrin Sat. (Calc) 17 % 20 - 55 % Low March 19, 2024 Platelets 181 1000/mcL 130 - 400 1000/mcL - Octo 2023 WBC (No Diff) 5.55 1000/mcL 4.80 - [...] 33.6 % 42.0 - 54.0 % Low be r 2023 Platelets 158 1000/mcL 130 - 400 1000/mcL - Dece 2023 HGB 10.8 g/dL 14.0 - 18.0 g/dL Low May 25, 2024 RDW 14.0 % 11.5 - 14.5 % - May MCHC 32.5 g/dL 30.0 - 36.0 g/dL - May 25, 2024 MCH 28.9 pg 27.0 - 31.0 pg - May 162023 Hemoglobin x 3 32.4 % 42.0 - 54.0 % Low Decemb r 2023 HCT 33.4 % 42.0 - 52.0 % Low May RBC 3.76 mill/mcL 4.70 - 6.10 mill/mcL Low May 25, 2024 WBC (No Diff) 5.27 1000/mcL 4.80 - 10.80 1000/mcL - May 25, 2024 Transferrin Sat. (Calc) 42 % 20 - 55 % - May 25 TIBC (Calc) 254 mcg/dL 185 - 515 mcg/dL - mbe r 2023 Ferritin 266 ng/mL 22 - 322 ng/mL - May 162023 UIBC/TIBC 148 mcg/dL 155 - 355 mcg/dL Low May 25, 2024 Iron 106 mcg/dL 45 - 160 mcg/dL - May 25, 2024 Retic HGB (CHr) 32.1 pg 25.4 - 31.8 pg High Decem promise 2023 Metabolic/Renal Result Type Result Value Relevant Referen ce Range Interpretation Date Hemoglobin A1c 6.0 % 4.8 - 5.9 % High March Creatinine Clearance, Urine 10.4 mL/min 94.0 - [...] - 100.0 ng/mL Low March 19, 2024 Magnesium 2.0 mg/dL 1.6 - 2.6 mg/dL - March PTH-Intact, Plasma 229 pg/mL 16 - 80 pg/mL High Mar PTH-Intact, Plasma 154 pg/mL 16 - 80 pg/mL High Apr Calcium, Total 8.6 mg/dL 8.4 - 10.2 mg/dL - 2023 Phosphorus 2.9 mg/dL 2.6 - 4.5 mg/dL - April 23, 2024 Ca x P Product 25 0 - - April Alkaline Phosphatase 98 U/L 40 - 129 U/L - No 2023 Corrected Ca x P Product 26 0 - 54 - April 23 Magnesium 1.6 mg/dL 1.6 - 2.6 mg/dL - April 23, 2024 Phosphorus 4.1 mg/dL 2.6 - 4.5 mg/dL - May 25, 2024 Calcium, Total 8.3 mg/dL 8.4 - 10.2 mg/dL Low Dece 2023 Ca x P Product 34 0 - 54 - May 162023 Magnesium 1.9 mg/dL 1.6 - 2.6 mg/dL - May 25, 2024 Corrected Ca x P Product 36 0 - - May 25 PTH-Intact, Plasma 160 pg/mL 16 - 80 pg/mL High May Liver/Nutrition Result Type Result Value Relevant Reference Range Interpre tation Date SGOT (AST) 14 U/L 13 - 39 U/L - April 23, 2024 SGPT (ALT) 16 U/L 7 - 52 U/L - April 23 Albumin (BCG) 3.8 g/dL 3.5 - 5.2 g/dL - 2023 Glucose 437 mg/dL 70 - 100 mg/dL High April Glucose 113 mg/dL 70 - 100 mg/dL High May 162023 Albumin (BCG) 3.3 g/dL 3.5 - 5.2 g/dL Low [facility]2023 Lipid Result Type Result Value Relevant Referen [...] PRESCRIPTION CAPD Data Element Value Order Date/Time June 22, 2024 Frequency 7X Week Treatment Days Gordon fletcher Estimated Dry Weight 97 kg Calcium Content in Bag (mEq/L) 2.5 [...] By Effective Date Resuscitation status Full Code [facility] Mar 19, 2024 DIALYSIS TREATMENTS (CAPD/CCPD treatments include self-reported information entered by the patient and may not contain the complete representation of a treatment.) CAPD Date Exchanges Fill Volume Exchange Solution Dialysis Access Meds-entered by patient June 21, 2024 1 of 3 2000 mL Dextrose 1.5% Peritoneal Dialysis-PD Catheter-Double Cuff Coiled, Left Lower Quadrant of Abdomen Access Placed on January 22, 2024 - 2 of 3 2000 mL Dextrose 1.5% 3 of 3 2000 mL Dextrose 1.5% Vitals Time Weight BP Heart Rate Temperature Blood Sugar June 21, 2024 (AM) 99.77 kg 151/75 mmHg 77 beats per min reed 98.9 deg. F 122 mg/dL CAPD Date Exchanges Fill Volume Exchange Solution Dialysis Access Meds-entered by patient June 20, 2024 1 of 3 2000 mL Dextrose 1.5% Peritoneal Dialysis-PD Catheter-Double Cuff Coiled, Left Lower Quadrant of Abdomen Access Placed on January 22, 2024 - 2 of 3 2000 mL Dextrose 1.5% 3 of 3 2000 mL Dextrose 1.5% Vitals Time Weight BP Heart Rate Temperature Blood Sugar June 20, 2024 (AM) 97.51 kg 174/76 mmHg 78 beats per min reed 98.7 deg. F 98 mg/dL CAPD Date Exchanges Fill Volume Exchange Solution Dialysis Access Meds-entered by patient June 19, 2024 1 of 3 2000 mL Dextrose 1.5% Peritoneal Dialysis-PD Catheter-Double Cuff Coiled, Left Lower Quadrant of Abdomen Access Placed on January 22, 2024 - 2 of 3 2000 mL Dextrose 1.5% 3 of 3 2000 mL Dextrose 1.5% Vitals Time Weight BP Heart Rate Temperature Blood Sugar June 19, 2024 (AM) 100.23 kg 156/81 mmHg 76 beats per minute 98.3 deg. F 157 mg/d L
== END 2024-06-22 11:22 | disposition home or self-care (01) ==
LOC: HO.HMGCX 11:21
PROVIDERS: PCP Internal Medicine; Visit Provider Internal Medicine Hypertension Specialist
DX: M79.89 Other specified soft tissue disorders (principal)
CPT/HCPCS: 93971

== ENCOUNTER → 2024-06-22 11:31 | Outpatient (BNV) | payer OTHER, SELFPAY | PROVIDERS: PCP Internal Medicine; Visit Provider Radiology Diagnostic Radiology | DX: R22.32 Localized swelling, mass and lump, left upper limb (principal) | CPT/HCPCS: 93971 ==

== ENCOUNTER 2024-07-13 11:18 | Outpatient (REF) | payer OTHER, SELFPAY ==
--- NOTE | ~2024-07-13 | XR_ITS ---
CLINICAL HISTORY: N18.6 - End stage renal disease 2 view abdomen Comparison: None Findings: Normal lung bases. No pneumoperitoneum or pneumatosis. Moderate colonic stool. No abnormal calcifications. No acute fractures. IMPRESSION: The bowel gas pattern is within normal limits This document has been electronically signed by: Pritesh Miguel MD on 07/14/2024 17:43:20
== END 2024-07-13 11:19 | disposition home or self-care (01) ==
LOC: HO.XRAY 11:18
PROVIDERS: PCP Internal Medicine; Visit Provider Internal Medicine Hypertension Specialist
DX: N18.6 End stage renal disease (principal)
CPT/HCPCS: 74019

== ENCOUNTER → 2024-07-13 12:03 | Outpatient (BNV) | payer OTHER, SELFPAY | PROVIDERS: PCP Internal Medicine; Visit Provider Radiology Diagnostic Radiology | DX: N18.6 End stage renal disease (principal) | CPT/HCPCS: 74019 ==

== ENCOUNTER 2024-07-15 13:01 | Outpatient (AMB) | payer OTHER, SELFPAY ==
--- NOTE | 2024-07-15 13:07 | A.OFFVIS_ITS ---
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 anemia Current medications: Tresiba 26 units 80 -150 5 units on cequr 3 clicks 151-200 6 units 3 clicks 201-250 7-8 units 4 clicks 251-300 9-10 units 5 clicks Over 300 12 units 6 clicks POC A1C was 67% in April. Lida download-GMI 7.9% TGT 49%, 50% high 1% low. Still having some post prandial hypoglycemia with breakfast (~10am). He is typically only getting 4-6 units at this time. He is tolerating much higher doses without lows in afternoon and evening. Needs strips for spot testing lows and highs He is on peritoneal dialysis ROS CONSTITUTIONAL: Denies weight loss, fever and chills. HEENT: Denies changes in vision and hearing. RESPIRATORY: Denies SOB and cough. CV: Denies palpitations and CP GI: Denies abdominal pain, nausea, vomiting and diarrhea. : Denies dysuria and urinary frequency. MSK: Denies new myalgia and joint pain. SKIN: Denies rash and pruritus. NEUROLOGICAL: Denies headache PSYCHIATRIC: Denies recent changes in mood. PHYSICAL EXAM: GENERAL:using walker no acute distress EYES: EOMI. Anicteric. HENT: Moist mucous membranes. No scleral icterus. No cervical lymphadenopathy. LUNGS: Clear to auscultation bilaterally. CARDIOVASCULAR: Regular rate and rhythm. No murmur. No JVD. ABDOMEN: Soft, non-tender +bs EXTREMITIES: No edema. Non-tender. SKIN: No rashes or lesions. Warm. NEUROLOGIC: No new focal neurological deficits. PSYCHIATRIC: Cooperative. 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 Metabolic acidosis Right foot ulcer Anxiety History of foot ulcer Obesity (BMI 30-39.9) Depression Rotator cuff arthropathy of left shoulder Vitamin D deficiency Allergic rhinitis Anemia Pure hypercholesterolemia Benign essential hypertension Diabetic polyneuropathy Type 2 diabetes mellitus with diabetic chronic kidney disease Erectile dysfunction Type 2 diabetes mellitus with hyperglycemia, with long-term current use of insulin Type 2 diabetes mellitus with diabetic polyneuropathy Type 2 diabetes mellitus with chronic kidney disease 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 LDL goal <70 Surgical History History of nasal surgery Family History Father Lung cancer Mother Hypertension Coronary artery disease CVD (cardiovascular disease) TIA (transient ischemic attack) Sister Diabetes Maternal Uncle Diabetes Other Mental health problem Social History Household Members: Family Housing: House Do you presently have visiting nurse or other home services: Yes Alcohol intake: current Alcohol intake frequency: holidays/special occasions only Comment: sister in room Patient Tobacco Use Status: Never used Tobacco e-Cigarette/Vaping Use: Never Used Second Hand Smoke Exposure: Yes service: No Current occupational status: unemployed Cognitive needs: Yes (wheelchair, walker) Hearing needs: No Vision needs: No Assessment & Plan Assessment & Plan (1) Type 2 diabetes mellitus: Code(s): E11.9 - Type 2 diabetes mellitus without complications Category: Medical Qualifiers: Diabetes mellitus halfway insulin use: with halfway use Diabetes mellitus complication status: with hypoglycemia Diabetes mellitus complication detail: without coma Qualified Code(s): E11.649 - Type 2 diabetes mellitus with hypoglycemia without coma; Z79.4 - [facility] (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 of insulin Plan: Uncontrolled. Hypoglycemia Stop short acting insulin with breakfast. Otherwise continue same dosing. Increase tresiba to 30 units. Return in 2 weeks Medications: New FreeStyle Precision Fred Strips (blood sugar diagnostic) once daily 100 ea 3RF NS E11.649 - Type 2 diabetes mellitus with hypoglycemia without coma, Z79.4 - oysterman (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 of insulin Changed From insulin degludec (Tresiba FlexTouch U-200 insulin) 26 units (0.13 mL) subcut DAILY 30 days 6 mL 10RF To insulin degludec (Tresiba FlexTouch U-200 insulin) 30 units (0.15 mL) subcut DAILY 30 days 4.5 mL 10RF Refilled insulin lispro 80 -150 5 units on cequr 3 clicks 151-200 6 units 3 clicks 201-250 7-8 units 4 clicks 251-300 9-10 units 5 clicks Over 300 12 units 6 clicks Do not take with breakfast 30 days 20 mL 3RF Coding Level of Care Code Est Pt Level 4 (29386) Diagnoses Type 2 diabetes mellitus with hypoglycemia without coma, with long-term current use of insulin E11.649; Z79.4 Diabetes mellitus oysterman insulin use: with oysterman use Diabetes mellitus complication status: with hypoglycemia Diabetes mellitus complication detail: without coma
[2024-07-15 13:08] VITALS: BP 142/58; PULSE 76; BMI 34.3
[2024-07-15 13:21] LABS: Glucose, Whole Blood 122 mg/dL (60-115)
--- OUTSIDE RECORDS SUMMARY | 2024-07-15 16:50 | XMS_ITS ---
Author Name Rosa Maria, Clinic Address [address] [place] [id number] Phone [phone] Organization [facility] e, NA DOCUMENT DISCLAIMER Multiple document versions may exist, please be sure you review the latest version. The information in the [facility] Continuity of Care Document represents a summary [...] residual deficits Z86.73 Active February 24, 2024 retirement (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 of insulin Z79.4 Active February [...] SOCIAL HISTORY Tobacco Use Status Tobacco Type Unknown if ever consumed tobacco - Caregiver Characteristics No Information Available Characteristics of Home environment No Information Available Gender and Sex Information Gender Identity Sexual Orientation Male No Information Avail able MEDICATIONS Prescribed Medications for Dialysis Treatments Medication Instructions Dosage Route Start Date End Date Stat us Iron Sucrose (Venofer) Every 4 weeks 200 mg Intravenous - push June 21, 2024 June 20, 2025 Active Mircera Every 4 weeks 150 [...] tablet ORAL May 25, 2024 Active losartan 50 mg Take by mouth once a day 1 tablet ORAL June 15, 2024 Active omeprazole 20 mg Take by mouth twice a day 2 tablet ORAL March 19, 2024 Active oxycodone 5 mg Take by mouth three times a day as needed for pain 1 tablet ORAL March 19, 2024 Active Tresiba FlexTouch U-100 100 unit/mL (3 mL) Inject subcutaneously every night at bedtime 20 unit SUBCUTANEOUS April 23, 2024 Active VITAL SIGNS Other Other Value Date / Time Height 170.18 cm April 13, 2024 12:00 AM LAB RESULTS Hematology Result Type Result Value [...] 1000/mcL 130 - 400 1000/mcL - Octo promise 2023 WBC (No Diff) 5.55 1000/mcL 4.80 - 10.80 1000/mcL - March 19, 2024 Platelets 159 1000/mcL 130 - 400 1000/mcL - Nove mb 2023 Hemoglobin x 3 35.7 % 42.0 - 54.0 % Low 2023 Ferritin 250 ng/mL 22 - 322 [...] 158 1000/mcL 130 - 400 1000/mcL - mb2023 RDW 14.0 % 11.5 - 14.5 % - May MCHC 32.5 g/dL 30.0 - 36.0 g/dL - May 25, 2024 MCH 28.9 pg 27.0 - 31.0 pg - May 162023 Hemoglobin x 3 32.4 % 42.0 - 54.0 % Low Decee r 2023 WBC (No Diff) 5.27 1000/mcL 4.80 - 10.80 1000/mcL - May 25, 2024 Transferrin Sat. (Calc) 42 % 20 - 55 % - May 25 TIBC (Calc) 254 mcg/dL 185 - 515 mcg/dL - r 2023 Ferritin 266 ng/mL 22 - 322 ng/mL - May 162023 UIBC/TIBC 148 mcg/dL 155 - 355 mcg/dL Low May 25, 2024 Iron 106 mcg/dL 45 - 160 mcg/dL - May 25, 2024 Retic HGB (CHr) 32.1 pg 25.4 - 31.8 pg High Decem promise 2023 Transferrin Sat. (Calc) 43 % 20 - 55 % - June 24, 2024 WBC (No Diff) 4.69 1000/mcL 4.80 - 10.80 1000/mcL Low June 24, 2024 MCH 30.0 pg 27.0 - 31.0 pg - June RBC 3.85 mill/mcL 4.70 - 6.10 mill/mcL Low June 24, 2024 HCT 35.9 % 42.0 - 52.0 % Low June 24, 2024 RDW 14.9 % 11.5 - 14.5 % High June 24, 2024 HGB 11.6 g/dL 14.0 - 18.0 g/dL Low June 24, 2024 MCHC 32.2 g/dL 30.0 - 36.0 g/dL - June 24, 2024 Hemoglobin x 3 34.8 % 42.0 - 54.0 % Low June 24, 2024 Platelets 168 1000/mcL 130 - 400 1000/mcL - Perry lissett 2024 Ferritin 193 ng/mL 22 - 322 ng/mL - June UIBC/TIBC 161 mcg/dL 155 - 355 mcg/dL - June 24, 2024 TIBC (Calc) 283 mcg/dL 185 - 515 mcg/dL - June 24, 2024 Iron 122 mcg/dL 45 - 160 mcg/dL - June Metabolic/Renal Result Type Result Value Relevant Referen ce Range Interpretation Date Hemoglobin A1c 6.0 % 4.8 - 5.9 % High March Hemoglobin A1c 7.0 % 4.8 - 5.9 [...] - 5.1 mEq/L - May 25, 2024 BUN 61 mg/dL 6 - 19 mg/dL High June 24, 2024 Creatinine, Serum 5.35 mg/dL 0.60 - 1.30 mg/dL High June 24, 2024 Potassium 5.3 mEq/L 3.5 - 5.1 mEq/L High June Chloride 110 mEq/L 96 - 108 mEq/L High June BUN/Creat Ratio 11.4 10.0 - 20.0 - June 24, 2024 Sodium 146 mEq/L 136 - 145 mEq/L High June Bicarbonate 26 mEq/L 22 - 29 mEq/L - June Bone/Mineral Result Type Result Value Relevant Referen [...] April 23, 2024 Ca x P Product 0 - - April Alkaline Phosphatase 98 U/L 40 - 129 U/L - 2023 Corrected Ca x P Product 0 - - April 23 Magnesium 1.6 mg/dL 1.6 [...] pg/mL 16 - 80 pg/mL High May PTH-Intact, Plasma 197 pg/mL 16 - 80 pg/mL High Junry 2024 Calcium, Total 8.8 mg/dL 8.4 - 10.2 mg/dL - lissett2024 Phosphorus 4.6 mg/dL 2.6 - 4.5 mg/dL High June Corrected Ca x P Product 41 0 - - June 24, 2024 Ca x P Product 40 0 - - June Magnesium 2.3 mg/dL 1.6 - 2.6 mg/dL - June Liver/Nutrition Result Type Result Value Relevant Reference [...] 3.3 g/dL 3.5 - 5.2 g/dL Low 2023 Glucose 231 mg/dL 70 - 100 mg/dL High June Albumin (BCG) 3.7 g/dL 3.5 - 5.2 g/dL - June 24, 2024 Lipid Result Type Result Value Relevant Referen [...] 47 mg/dL 0 - 99 mg/dL - Octob er 2023 Immunochemistry Result Type Result Value Relevant Reference Range Interpre tation Date HCV s/co ratio 0.02 0.00 - 0.79 - March 0 2023 Trace Elements Result Type Result Value Relevant Reference Range Interpre tation Date Aluminum < 5 mcg/L 0 - 10 mcg/L - March 19, 2024 Peritoneal Dialysis Testing Result Type Result Value Relevant Referen ce Range Interpretation Date Total Urea Nitrogen, Urine 8.5 g/24 hr 12.0 - 20.0 g/24 hr Low March 19, 2024 Urea Clearance, Urine 8.2 mL/min 64.0 - 99.0 mL/min Low March 19, 024 Total Urea Nitrogen, Urine 7.1 g/24 hr [...] (HBsAg) Negative No Reference Range Provided - June 24, 2024 DIALYSIS PRESCRIPTION CCPD Data Element Value Order Date/Time July 15, 2024 Frequency 7X Week Treatment Days [id number] n Estimated Dry Weight 96 kg Calcium Content in Bag (mEq/L) 2.5 mEq/L Magnesium Content in Bag (mEq/L) 0.5 mEq /L Dextrose Content in Bag % 1.5; 2.5; 4.25 % Number of Cycler Exchanges 4 Fill Volume 2000 mL Last Fill Volume 2000 mL Total Cycler Therapy Volume 6000 mL Total Cycler Therapy Time 480 min Average Dwell Time 130 min Icodextrin (Extraneal) Long Dwell Number of Daytime Exchanges 0 Dialysis Access Peritoneal Dialysis- PD Catheter-Double Cuff Coiled, Left Lower Quadrant of Abdomen Access Placed on January 22, 2024 IMMUNIZATIONS Vaccine Date Dose Route Status HEPLISAV-B, Series 3 of 4 May 25, 2024 20.0 mcg Int ramuscular Completed HEPLISAV-B, Series 2 of 4 April 28, 2024 20.0 mcg Int ramuscular Completed HEPLISAV-B April 01, 2024 20.0 mcg Intramuscular Compl eted Flu Vaccine - Flucelvax Trivalent March 23, 2024 0.5 mL Intramuscular Completed TRANSPLANT WAITLIST STATUS No Information on Transplant Waitlist Status ADVANCE DIRECTIVES Directive Description Ordered By Effective Date Resuscitation status Full Code [facility] Mar 19, 2024 DIALYSIS TREATMENTS (CAPD/CCPD treatments include self-reported information entered by the patient and may not contain the complete representation of a treatment.) CCPD-PatientHub Date Exchanges Fill Volume Exchange Solution Dialysis Access Meds-entered by patient July 14, 2024 1 of 1 - Dextrose 2.5% Peritoneal Dialysis-PD Catheter-Double Cuff Coiled, Left Lower Quadrant of Abdomen Access Placed on January 22, 2024 - Vitals Time Weight BP Heart Rate Temperature Blood Sugar July 14, 2024 (AM) 101.59 kg 157/72 mmHg 80 beats per minute 98.2 deg. F 70 mg/dL CCPD-[facility] Date Exchanges Fill Volume Exchange Solution Dialysis Access Meds-entered by patient July 13, 2024 1 of 1 - Dextrose 2.5% Peritoneal Dialysis-PD Catheter-Double Cuff Coiled, Left Lower Quadrant of Abdomen Access Placed on January 22, 2024 - Vitals Time Weight BP Heart Rate Temperature Blood Sugar July 13, 2024 (AM) 103.4 kg 134/50 mmHg 92 beats per min [place] 98.2 deg. F 310 mg/dL CCPD-[facility] Date Exchanges Fill Volume Exchange Solution Dialysis Access Meds-entered by patient July 12, 2024 1 of 1 - Dextrose 2.5% Peritoneal Dialysis-PD Catheter-Double Cuff Coiled, Left Lower Quadrant of Abdomen Access Placed on January 22, 2024 - Vitals Time Weight BP Heart Rate Temperature Blood Sugar July 12, 2024 (AM) 101.59 kg 176/74 mmHg 86 beats per minute 98.5 deg. F 123 mg/d L
== END 2024-07-15 13:57 | disposition home or self-care (01) ==
PROVIDERS: PCP Internal Medicine; Visit Provider Internal Medicine
DX: E11.649 Type 2 diabetes mellitus with hypoglycemia without coma (principal); Z79.4 Long term (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 of insulin

== ENCOUNTER → 2024-07-15 13:01 | Outpatient (BNVA) | payer OTHER, SELFPAY | PROVIDERS: PCP Internal Medicine; Visit Provider Internal Medicine | DX: E11.22 Type 2 diabetes mellitus with diabetic chronic kidney disease (principal); E11.40 Type 2 diabetes mellitus with diabetic neuropathy, unspecified; E11.649 Type 2 diabetes mellitus with hypoglycemia without coma; N18.9 Chronic kidney disease, unspecified; Z99.2 Dependence on renal dialysis | CPT/HCPCS: 82947; 99212 ==

== ENCOUNTER → 2024-08-14 | Outpatient (BNV) | payer OTHER, SELFPAY | PROVIDERS: PCP Internal Medicine; Visit Provider Internal Medicine Hypertension Specialist | DX: N18.6 End stage renal disease (principal) | CPT/HCPCS: 90962 ==

== ENCOUNTER 2024-08-17 14:13 | Outpatient (AMB) | payer OTHER, SELFPAY ==
[2024-08-17 13:55] VITALS: BP 136/62; PULSE 89; O2SAT 98
--- NOTE | 2024-08-17 13:55 | HO.NEPHOV_ITS ---
Vital Signs 08/17/24 13:55 Height 5 ft 7 in BP 136/62 Blood Pressure Location Rt brachial Position Sitting Pulse 89 Pulse Source Pulse Oximeter Pulse Oximetry (%) 98 Oxygen Delivery Method Room Air Intake Visit Reasons: Acute on chronic kidney failure/ LVM Manager Performance Required: No Accompanied by: Family/Other Allergies No Known Allergies Allergy (Verified 08/17/24 13:58) Medication List - Last Reconciled 08/17/24 by Stone Ulloa MD atorvastatin 80 mg PO DAILY 90 days [Bed pads As directed] blood sugar diagnostic (FreeStyle Lite Strips) As directed tid blood-glucose meter (FreeStyle Lite Meter kit) As directed tid blood-glucose meter,continuous (FreeStyle Lida 3 Oley) As directed blood-glucose sensor (FreeStyle Lida 3 Plus Sensor device) As directed every 15 days bolus insulin pump, 200 unit (CeQur Simplicity) As directed every 4 days [Commode As directed] diabetic supplies, miscellan. (CeQur Simplicity [employer]ician [employer]) As directed for use with cequr insulin patch ergocalciferol (vitamin D2) 1,250 mcg PO QWEEK flash glucose sensor (FreeStyle Lida 14 Day Sensor kit) USE DIRECTED EVERY 2 WEEKS FreeStyle Precision Fred Strips (blood sugar diagnostic) once daily NS furosemide 40 mg PO DAILY hydralazine 100 mg PO TID 90 days insulin degludec (Tresiba FlexTouch U-200 insulin) 30 units (0.15 mL) subcut DAILY 30 days insulin lispro subcut insulin lispro 80 -150 5 units on cequr 3 clicks 151-200 6 units 3 clicks 201-250 7-8 units 4 clicks 251-300 9-10 units 5 clicks Over 300 12 units 6 clicks Do not take with breakfast 30 days lactulose 20 grams (30 mL) PO BID lancets (FreeStyle Lancets) 3 times a day prn to confirm glucose sensor losartan 50 mg PO DAILY mirtazapine 30 mg PO DAILY omeprazole 40 mg PO BID 90 days oxycodone 5 mg PO BID-TID PRN 28 days peg 3350-electrolytes 236-22.74-6.74 -5.86 gram (Golytely) 240 mL PO Q10M pen needle, diabetic (BD Ultra-Fine Odette Pen Needle) 1 ea subcut QID sennosides-docusate sodium 8.6-50 mg (Senokot-S) 1 tab-cap PO BEDTIME PRN 30 days Shower Chair As directed walker As directed [facility] Medical History Essential hypertension 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 Metabolic acidosis Right foot ulcer Anxiety History of foot ulcer Obesity (BMI 30-39.9) Depression Rotator cuff arthropathy of left shoulder Vitamin D deficiency Allergic rhinitis Anemia Pure hypercholesterolemia Benign essential hypertension Diabetic polyneuropathy Type 2 diabetes mellitus with diabetic chronic kidney disease Erectile dysfunction Type 2 diabetes mellitus with hyperglycemia, with long-term current use of insulin Type 2 diabetes mellitus with diabetic polyneuropathy Type 2 diabetes mellitus with chronic kidney disease 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 LDL goal <70 Surgical History History of nasal surgery Family History Father Lung cancer Mother Hypertension Coronary artery disease CVD (cardiovascular disease) TIA (transient ischemic attack) Sister Diabetes Maternal Uncle Diabetes Other Mental health problem Social History Household Members: Family Housing: House Do you presently have visiting nurse or other home services: Yes Alcohol intake: current Alcohol intake frequency: holidays/special occasions only Comment: sister in room Patient Tobacco Use Status: Never used Tobacco e-Cigarette/Vaping Use: Never Used Second Hand Smoke Exposure: Yes service: No Current occupational status: unemployed Cognitive needs: Yes (wheelchair, walker) Hearing needs: No Vision needs: No Physical Exam Vital Signs: Last Vital Signs Pulse 89 08/17/24 13:55 BP 136/62 08/17/24 13:55 Pulse Ox 98 08/17/24 13:55 Oxygen Delivery Method Room Air 08/17/24 13:55 Results Reviewed Nephrology Results: No Data to Display Assessment & Plan Assessment & Plan (1) ESRD (end stage renal disease): Code(s): N18.6 - End stage renal disease Category: Medical Plan: See PD notes Coding Level of Care Code Global (75731) Diagnoses ESRD (end stage renal disease) N18.6
--- OUTSIDE RECORDS SUMMARY | 2024-08-17 17:57 | XMS_ITS ---
Author Name Rosa Maria, Clinic Address [address] [place] [address] Phone [phone] Organization [facility] e, NA DOCUMENT DISCLAIMER Multiple document versions may exist, please be sure you review the latest version. The information in the [facility] Continuity of Care Document represents a summary [...] residual deficits Z86.73 Active February 24, 2024 [facility] (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 of insulin Z79.4 Active February [...] Orientation Male No Information Avail able MEDICATIONS Home Medications Medication Instructions Dosage Route Start Date End Date Stat us atorvastatin 80 mg Take by mouth once a day 1 tablet ORAL March 19, 2024 Active calcitriol 0.25 mcg Take by mouth three times a week 1 capsule ORAL August 11, 2024 Active ergocalciferol (vitamin D2) 1,250 mcg [...] 1 tablet ORAL May 25, 2024 Active lactulose 10 gram/15 mL Take by mouth once a day as directed 15 ml ORAL July 29, 2024 Active losartan 50 mg Take by mouth once a day 1 tablet ORAL June 15, 2024 Active Nephro-Reinaldo 0.8 mg Take by mouth once a day 1 tablet ORAL August 11, 2024 Active omeprazole 20 mg Take by mouth twice a day 2 tablet ORAL March 19, 2024 Active oxycodone 5 mg Take by mouth three times a day as needed for pain 1 tablet ORAL March 19, 2024 Active Sevelamer Carbonate Tablet 800 mg Take By Mouth Three times a day With Meals 1 Tablet By Mouth August 17, 2024 August 11, 2025 Active Tresiba FlexTouch U-100 100 unit/mL (3 mL) Inject subcutaneously every night at bedtime 20 unit SUBCUTANEOUS April 23, 2024 Active VITAL SIGNS Weight Vital Sign Value Date / Time Estimated Dry Weight 98 kg July 11:59 PM Other Other Value Date / Time Height 170.18 cm April 13, 2024 12:00 AM Body Mass Index 33.91 kg/m2 August 11 11:58 AM LAB RESULTS Hematology Result Type Result [...] - 400 1000/mcL - Nove mb 2023 Ferritin 250 ng/mL 22 - 322 ng/mL - April UIBC/TIBC 224 mcg/dL 155 - 355 mcg/dL - April 23, 2024 TIBC (Calc) 271 mcg/dL 185 - 515 mcg/dL - [facility] r 2023 Transferrin Sat. (Calc) 17 % 20 - 55 % Low April 23 WBC (No Diff) 5.85 1000/mcL 4.80 - 10.80 1000/mcL - April 23, 2024 Platelets 158 1000/mcL 130 - 400 1000/mcL - Dece mb2023 RDW 14.0 % 11.5 - 14.5 % - May MCHC 32.5 g/dL 30.0 - 36.0 g/dL - May 25, 2024 MCH 28.9 pg 27.0 - 31.0 pg - May 162023 Hemoglobin x 3 32.4 % 42.0 - 54.0 % [facility] WBC (No Diff) 5.27 1000/mcL 4.80 - 10.80 1000/mcL - May 25, 2024 Ferritin 266 ng/mL 22 - 322 ng/mL - May 162023 Transferrin Sat. (Calc) 42 % 20 - 55 % - May 25 TIBC (Calc) 254 mcg/dL 185 - 515 mcg/dL - r 2023 UIBC/TIBC 148 mcg/dL 155 - 355 mcg/dL [...] pg 27.0 - 31.0 pg - June RDW 14.9 % 11.5 - 14.5 % High June 24, 2024 MCHC 32.2 g/dL 30.0 [...] mcg/dL 45 - 160 mcg/dL - June HCT 42.1 % 42.0 - 52.0 % - July RBC 4.55 mill/mcL 4.70 - 6.10 mill/mcL Low July 28, 2024 WBC (No Diff) 5.77 1000/mcL 4.80 - 10.80 1000/mcL - July 28, 2024 Platelets 142 1000/mcL 130 - 400 1000/mcL - uary 2024 RDW 15.0 % 11.5 - 14.5 % High July MCHC 32.8 g/dL 30.0 - 36.0 g/dL - July 28, 2024 Hemoglobin x 3 41.4 % 42.0 - 54.0 % Low 2024 HGB 13.8 g/dL 14.0 - 18.0 g/dL Low July 28, 2024 MCH 30.3 pg 27.0 - 31.0 pg - July 172024 Ferritin 425 ng/mL 22 - 322 ng/mL High July 172024 UIBC/TIBC 118 mcg/dL 155 - 355 mcg/dL Low July 28, 2024 Iron 144 mcg/dL 45 - 160 mcg/dL - July 28, 2024 Transferrin Sat. (Calc) 55 % 20 - 55 % - July 28 TIBC (Calc) 262 mcg/dL 185 - 515 mcg/dL - 2024 Metabolic/Renal Result Type Result Value Relevant Referen ce Range Interpretation Date Hemoglobin A1c 6.0 % 4.8 - 5.9 % High March Hemoglobin A1c 7.0 % 4.8 - 5.9 % High April 23, 2024 Sodium 144 mEq/L 136 [...] mEq/L 22 - 29 mEq/L - June Creatinine, Serum 6.98 mg/dL 0.60 - 1.30 mg/dL High July 28, 2024 BUN 80 mg/dL 6 - 19 mg/dL High July 28, 2024 Hemoglobin A1c 6.5 % 4.8 - 5.9 % High July 28, 2024 Creatinine Clearance, Urine 7.6 mL/min 94.0 - 122.0 mL/min Low July 28, 2024 Urea Nitrogen, Urine, Timed 497 mg/dL No Reference Range Provided - July 28, 2024 Bicarbonate 26 mEq/L 22 - 29 mEq/L - July 172024 Sodium 144 mEq/L 136 - 145 mEq/L - July 28, 2024 BUN/Creat Ratio 11.5 10.0 - 20.0 - July 28, 2024 Chloride 106 mEq/L 96 - 108 mEq/L - July 172024 Potassium 5.1 mEq/L 3.5 - 5.1 mEq/L - July 28, 2024 nPCR 0.93 g/kg/day No Reference Ran ge Provided - July 28, 2024 nPCR 0.90 g/kg/day No Reference Ran ge Provided - August 11, 2024 Urea Nitrogen, Urine, Timed 493 mg/dL No Reference Range Provided - August 11, 2024 BUN 63 mg/dL 6 - 19 mg/dL High August 11, 2024 Bone/Mineral Result Type Result Value Relevant Referen ce Range Interpretation Date Vitamin D 25 Hydroxy 29.0 ng/mL 30.0 - 100.0 ng/mL Low March 19, 2024 Magnesium 2.0 mg/dL 1.6 - 2.6 mg/dL - March PTH-Intact, Plasma 229 pg/mL 16 - 80 pg/mL High Mar charlie2023 PTH-Intact, Plasma 154 pg/mL 16 - 80 pg/mL High Apr Magnesium 1.6 mg/dL 1.6 - 2.6 mg/dL - April 23, 2024 Phosphorus 4.1 mg/dL 2.6 - 4.5 mg/dL - May 25, 2024 Calcium, Total 8.3 mg/dL 8.4 - 10.2 mg/dL Low Dece mb2023 PTH-Intact, Plasma 160 pg/mL 16 - 80 pg/mL High May Ca x P Product 34 0 - - May 162023 Magnesium 1.9 mg/dL 1.6 - 2.6 mg/dL - May 25, 2024 Corrected Ca x P Product 36 0 - - May 25 PTH-Intact, Plasma 197 pg/mL 16 - 80 pg/mL High Jun Calcium, Total 8.8 mg/dL 8.4 - 10.2 mg/dL - 2024 Phosphorus 4.6 mg/dL 2.6 - 4.5 mg/dL High June Corrected Ca x P Product 41 0 - - June 24, 2024 Ca x P Product 40 0 - 54 - June Magnesium 2.3 mg/dL 1.6 - 2.6 mg/dL - June PTH-Intact, Plasma 278 pg/mL 16 - 80 pg/mL High Jul ru2024 Vitamin D 25 Hydroxy 56.2 ng/mL 30.0 - 100.0 ng/mL - July 28, 2024 Alkaline Phosphatase 75 U/L 40 - 129 U/L - bru2024 Calcium, Total 8.7 mg/dL 8.4 - 10.2 mg/dL - 2024 Ca x P Product 51 0 - 54 - July 172024 Phosphorus 5.9 mg/dL 2.6 - 4.5 mg/dL High July 28, 2024 Magnesium 2.1 mg/dL 1.6 - 2.6 mg/dL - July 28, 2024 Corrected Ca x P Product 53 0 - 54 - July 28 Liver/Nutrition Result Type Result Value Relevant Reference Range Interpre tation Date Glucose 113 mg/dL 70 - 100 mg/dL High May 162023 Albumin (BCG) 3.3 g/dL 3.5 - 5.2 g/dL Low Decembe r 2023 Glucose 231 mg/dL 70 - 100 mg/dL High June Albumin (BCG) 3.7 g/dL 3.5 - 5.2 g/dL - June 24, 2024 SGOT (AST) 17 U/L 13 - 39 U/L - July 28, 2024 Albumin (BCG) 3.8 g/dL 3.5 - 5.2 g/dL - 2024 SGPT (ALT) 21 U/L 7 - 52 U/L - July 28 Glucose 75 mg/dL 70 - 100 mg/dL - July 172024 Lipid Result Type Result Value Relevant Referen [...] mg/dL 0 - 99 mg/dL - 2023 Cholesterol, Total 108 mg/dL 0 - 199 mg/dL - Jul LDL, (Calculated) 48 mg/dL 0 - 99 mg/dL - 2024 VLDL (Calculated) 13 mg/dL 10 - 30 mg/dL - 2024 Cholesterol HDL Ratio 2.3 0.0 - 4.5 - Jul HDL 47 mg/dL No Reference Ran ge Provided - July 28, 2024 Triglycerides 64 mg/dL 0 - 149 mg/dL - July 28, 2024 Immunochemistry Result Type Result Value Relevant Reference Range Interpre tation Date HCV s/co ratio 0.02 0.00 - 0.79 - March HCV s/co ratio 0.05 0.00 - 0.79 - July 28, 2024 Trace Elements Result Type Result Value Relevant [...] R ibis Provided - May 25, 2024 Creatinine Clearance - Measured PD 110 L/wk No Reference Range Provided - July 28, 2024 Total Urea Nitrogen, Urine 4.5 g/24 hr 12.0 - 20.0 g/24 hr Low July 28, 2024 Urea Clear, Urine Norm 3.2 mL/min 64.0 - 99.0 mL/min Low July 28, 2024 Urea Clearance, Urine 3.9 mL/min 64.0 - 99.0 mL/min Low July 28, 2024 Urea Clear, Urine Norm Wkly 39 L/wk No Reference Range Provided - July 28, 2024 Creatinine, Urine 103.7 mg/dL No Reference R ibis Provided - July 28, 2024 Total Creatinine, Urine 0.9 g/24 hr 0.7 - 1.8 g/24 hr - July 28, 2024 Creat Clear, Urine Norm Wkly 77 L/wk No Reference Range Provided - July 28, 2024 Creat Clear, Urine Weekly 93.7 L/wk No Reference Range Provided - July 28, 2024 Wkly Creat Cl (Resid + Dial) 90 L/wk No Reference Range Provided - July 28, 2024 Urea Nitrogen, PDF 24 Hr 3889.1 mg/24 hr No Reference Range Provided - July 28, 2024 PD Kt/V 24 Hr Dialysate Urea 57 mg/dL No Reference Range Provided - July 28, 2024 Urea Clearance, PD Fluid 3.4 mL/min No Reference Range Provided - July 28, 2024 Urea Clearance, PDF Norm 2.8 mL/min No Reference Range Provided - July 28, 2024 Urea Clear, Total Norm Wkly 73 L/wk No Reference Range Provided - July 28, 2024 Urea Clear, PDF Norm Wkly 34 L/wk No Reference Range Provided - July 28, 2024 Creatinine, PDF 24 Hr 163.8 mg/24 hr No Reference Range Provided - July 28, 2024 Creatinine, PD Fluid, 24 Hr Uncorrected 2.7 mg/dL No Reference Range Provided - July 28, 2024 Creatinine, PDF Timed Cor 2.4 mg/dL No Reference Range Provided - July 28, 2024 Glucose, PDF Timed 1288 mg/dL No Reference Range Provided - July 28, 2024 Creatinine Clear, PDF 1.6 mL/min No Reference Range Provided - July 28, 2024 Creatinine Clear, PDF Norm 1.3 mL/min No Reference Range Provided - July 28, 2024 Creat Clear, PDF Weekly 16 L/wk No Reference Range Provided - July 28, 2024 Kt/V, Residual 0.80 No Reference Ran ge Provided - July 28, 2024 PNA 78 g/day No Reference Ran ge Provided - July 28, 2024 Total Urea Nitrogen, Urine 4.9 g/24 hr 12.0 - 20.0 g/24 hr Low August 11, 2024 Urea Clear, Urine Norm 4.5 mL/min 64.0 - 99.0 mL/min Low August 11, 2024 Urea Clearance, Urine 5.4 mL/min 64.0 - 99.0 mL/min Low August 11, 2024 Urea Clear, Urine Norm Wkly 55 L/wk No Reference Range Provided - August 11, 2024 Urea Nitrogen, PDF 24 Hr 3150.9 mg/24 hr No Reference Range Provided - August 11, 2024 PD Kt/V 24 Hr Dialysate Urea 47 mg/dL No Reference Range Provided - August 11, 2024 Urea Clearance, PD Fluid 3.5 mL/min No Reference Range Provided - August 11, 2024 Urea Clearance, PDF Norm 2.8 mL/min No Reference Range Provided - August 11, 2024 Urea Clear, Total Norm Wkly 90 L/wk No Reference Range Provided - August 11, 2024 Urea Clear, PDF Norm Wkly 35 L/wk No Reference Range Provided - August 11, 2024 Kt/V, Residual 1.13 No Reference Ran ge Provided - August 11, 2024 PNA 76 g/day No Reference Ran ge Provided - August 11, 2024 Infectious Diseases Result Type Result Value Relevant Referen ce Range Interpretation Date Hep B core Ab Total (anti-HBc) Negative No Reference Range Provided - March 19, 2024 HCV Ab (anti-HCV) Nonreactive No Reference R ibis Provided - July 28, 2024 Hep B Surface Ag (HBsAg) Negative No Reference Range Provided - July 28, 2024 Hep B Surface Ab (anti-HBs) 52 mIU/mL No Reference Range Provided - July 28, 2024 DIALYSIS PRESCRIPTION CCPD Data Element Value Order Date/Time July 21, 2024 Frequency 7X Week Treatment Days Gordon fletcher Estimated Dry Weight 98 kg Calcium Content in Bag (mEq/L) 2.5 mEq/L Magnesium Content in Bag (mEq/L) 0.5 mEq /L Dextrose Content in Bag % 1.5; 2.5; 4.25 % Number of Cycler Exchanges 3 Fill Volume 2000 mL Total Cycler Therapy Volume 6000 mL Total Cycler Therapy Time 480 min Average Dwell Time 130 min Number of Daytime Exchanges 0 Dialysis Access [...] Resuscitation status Full Code Stone William [facility] Mar 19, 2024 DIALYSIS TREATMENTS (CAPD/CCPD treatments include self-reported information entered by the patient and may not contain the complete representation of a treatment.) CCPD-PatientHub Date Exchanges Fill Volume Exchange Solution Dialysis Access Meds-entered by patient August 15, 2024 1 of 1 - Dextrose 2.5% Peritoneal Dialysis-PD Catheter-Double Cuff Coiled, Left Lower Quadrant of Abdomen Access Placed on January 22, 2024 - Vitals Time Weight BP Heart Rate Temperature Blood Sugar August 15, 2024 (AM) 99.32 kg 147/66 mmHg 81 beats per minut e 98.1 deg. F 168 mg/dL CCPD-PatientHub Date Exchanges Fill Volume Exchange Solution Dialysis Access Meds-entered by patient August 14, 2024 1 of 1 - Dextrose 2.5% Peritoneal Dialysis-PD Catheter-Double Cuff Coiled, Left Lower Quadrant of Abdomen Access Placed on January 22, 2024 - Vitals Time Weight BP Heart Rate Temperature Blood Sugar August 14, 2024 (AM) 100.23 kg 170/66 mmHg 76 beats per minut e 98.5 deg. F 256 mg/dL CCPD-Cycler Date Treatment Vitals Total Cycles Total Fill Volume Exchange Solution Total Exchange Solution Dialysis Access Meds-entered by patient August 16, 2024 - - 3 6006.0 mL Dextrose 1.5% - Peritoneal Dialysis-PD Catheter-Doubl e Cuff Coiled, Left Lower Quadrant of Abdomen Access Placed on January 22, 2024 - Dextrose 2.5% - Dextrose 4.25% -
--- OUTSIDE RECORDS SUMMARY | 2024-08-17 17:58 | XMS_ITS ---
Author Name Laila Stone Connors marpb Address [address] [place] [address] Phone [phone] Organization [facility] e, NA DOCUMENT DISCLAIMER Multiple document versions may exist, please be sure you review the latest version. The information in the [facility] Progress Note Document represents a providers documented clinical note containing certain health and medical information. It may not contain the complete medical history for the patient and should be independently verified. The represented time in the document is Eastern Time PROVIDER ROUNDING NOTE PD Patient:Eva?Lulú,?1970,?54y,?M Dialysis?Location:?[facility] Attending?Dialysis Technician:?Stone?Stewart?Laila Service?Date:?08/17/2024 Service?Provider:?Stone?Stewart?Laila,? I?met?face?to?face?with?the?patient?today. OVERVIEW The?patient?presented?with?ESRD Primary?cause?of?renal?failure:?Type?2?diabetes?mellitus&#16 0;with?diabetic?chronic?kidney?disease Medications?and?labs?reviewed. VITALS?ASSESSMENT Vitals?measured?in-clinic. BP?Sit ??06/24/2024:?194/87 ??05/25/2024:?156/83 ??04/23/2024:?158/72 Weight?(kg) ??06/24/2024:?106.5 ??04/23/2024:?98.2 Temp ??06/24/2024:?97.7 Respirations ??06/24/2024:?18 Pulse ??06/24/2024:?78 Height ??04/13/2024:?5'?7'' TREATMENT?ASSESSMENT BP ??08/15/2024:?147/66 FLUID?ASSESSMENT EDW?(kg) ??08/15/2024:?98 Weight?(kg) ??08/15/2024:?99.32 EDW?Variance ??08/15/2024:?1.32 DIALYSIS?PRESCRIPTION ??CCPD?7x?Week?Start?date:?07/21/24 ??Cycles:?3 ??Cycler?Fill:?2000 ??Avg?Dwell:?2:10 ??Total?Cycler:?480 ??Last?Fill:? ??Day?Exch:?0 ??Day?Fill:? ??EDW:?98 ??Rx?updated?on:?07/21/2024 ADEQUACY?ASSESSMENT PD?Kt/V,?Total ??08/11/2024:?1.85 ??07/28/2024:?1.5 ??04/23/2024:?3.81 ACCESS?ASSESSMENT ??Access?Type:?PDCatheter ??Access?SubType:?Double?Cuff?Coiled ??Access?Status:?Active?(In?Use)?-?03/16/2024 ??Access?Location:?Left?Lower?Quadrant ??Placed:?01/22/2024 ANEMIA?ASSESSMENT HGB,?TSAT ??07/28/2024:?13.8,?55.0 ??06/24/2024:?11.6,?43.0 ??05/25/2024:?10.8,?42.0 ?? Ferritin ??07/28/2024:?425.0 ??06/24/2024:?193.0 ??05/25/2024:?266.0 Mircera,?Sub?Q?(mcg) ??06/24/2024:?150 ??06/04/2024:?150 Iron?Sucrose?(Venofer)?(mg) ??06/24/2024:?200 ??06/04/2024:?200 BMM?ASSESSMENT PTH,?Intact ??07/28/2024:?278.0 ??06/24/2024:?197.0 ??05/25/2024:?160.0 ?? Calcium,?Phosphorus ??07/28/2024:?8.7,?5.9 ??06/24/2024:?8.8,?4.6 ??05/25/2024:?8.3,?4.1 NUTRITION?ASSESSMENT Potassium,?Albumin ??07/28/2024:?5.1,?3.8 ??06/24/2024:?5.3,?3.7 ??05/25/2024:?4.4,?3.3 PHYSICAL?EXAM Exam?Performed.?Vital?Signs?Reviewed.?Lungs?-?Clear.?CV&#160 ;-?Blood?pressure?noted.?EXT?-?1+?edema.?EXT?-?No& #160;ulcers.?ABD?-?Bowel?sounds?present. DIAGNOSIS Chief?Complaint:?N18.6?End?stage?renal?disease Patient?data?updated?08/17/2024?at?2:01?PM Signed?By:?Laila,?Stone?Stewart,???on?08/17/2024 2:09:29?PM END OF DOCUMENT
== END 2024-08-17 14:13 | disposition home or self-care (01) ==
LOC: HO.HKA 14:13
PROVIDERS: PCP Internal Medicine; Visit Provider Internal Medicine Hypertension Specialist
DX: N18.6 End stage renal disease (principal)
CPT/HCPCS: 99024

== ENCOUNTER → 2024-08-17 14:13 | Outpatient (BNVA) | payer OTHER, SELFPAY | PROVIDERS: PCP Internal Medicine; Visit Provider Internal Medicine Hypertension Specialist | DX: N18.6 End stage renal disease (principal) | CPT/HCPCS: 99212 ==

== ENCOUNTER 2024-08-18 13:01 | Outpatient (AMB) | payer OTHER, SELFPAY ==
--- NOTE | 2024-08-18 13:05 | MHC.OFFVIS ---
Vital Signs 08/18/24 13:06 Height 5 ft 7 in Weight 229 lb 4.492 oz BMI 35.9 BP 128/78 Blood Pressure Location Rt brachial Position Sitting Pulse 82 Pulse Source Pulse Oximeter Pulse Oximetry (%) 96 Oxygen Delivery Method Room Air Intake Visit Reasons: blood glucose check Intake Note: Patient presents today to establish treatment for Type 2 Diabetes Mellitus: Last Diabetic eye exam was on: 12/23/2023, [facility] Last Podiatry exam was on: Does not see a Game Designer/Creative Director Most recent HbA1c: 7.2%, 08/18/2024 Random Glucose- 230 mg/dL, Today Case Management Rn Required: No Accompanied by: Sister/STAKE SETTER Allergies No Known Allergies Allergy (Verified 08/17/24 13:58) Medication List - Last Reconciled 08/18/24 by Mikaela Bentley MD atorvastatin 80 mg PO DAILY 90 days [Bed pads As directed] blood sugar diagnostic (FreeStyle Lite Strips) As directed tid blood-glucose meter (FreeStyle Lite Meter kit) As directed tid blood-glucose meter,continuous (FreeStyle Lida 3 [place]) As directed blood-glucose sensor (FreeStyle Lida 3 Plus Sensor device) As directed every 15 days bolus insulin pump, 200 unit (CeQur Simplicity) As directed every 4 days [Commode As directed] diabetic supplies, miscellan. (CeQur Simplicity Web Page Designer) As directed for use with cequr insulin patch ergocalciferol (vitamin D2) 1,250 mcg PO QWEEK flash glucose sensor (FreeStyle Lida 14 Day Sensor kit) USE DIRECTED EVERY 2 WEEKS FreeStyle Precision Fred Strips (blood sugar diagnostic) once daily NS furosemide 40 mg PO DAILY hydralazine 100 mg PO TID 90 days insulin degludec (Tresiba FlexTouch U-200 insulin) 30 units (0.15 mL) subcut DAILY 30 days insulin lispro subcut insulin lispro 80 -150 5 units on cequr 3 clicks 151-200 6 units 3 clicks 201-250 7-8 units 4 clicks 251-300 9-10 units 5 clicks Over 300 12 units 6 clicks Do not take with breakfast 30 days lactulose 20 grams (30 mL) PO BID lancets (FreeStyle Lancets) 3 times a day prn to confirm glucose sensor losartan 50 mg PO DAILY mirtazapine 30 mg PO DAILY omeprazole 40 mg PO BID 90 days oxycodone 5 mg PO BID-TID PRN 28 days peg 3350-electrolytes 236-22.74-6.74 -5.86 gram (Golytely) 240 mL PO Q10M pen needle, diabetic (BD Ultra-Fine Odette Pen Needle) 1 ea subcut QID sennosides-docusate sodium 8.6-50 mg (Senokot-S) 1 tab-cap PO BEDTIME PRN 30 days Shower Chair As directed walker As directed HPI Comments Details: 54 year old type 2 diabetic with CKD on peritoneal dialysis, retinopathy and neuropathy presents for diabetic follow up Med history: DKA, CVA with residual dysphagia, renal failure. anemia Current medications: Tresiba 32 (increased from 26 units 80 -150 5 units on cequr 3 clicks 151-200 6 units 3 clicks 201-250 7-8 units 4 clicks 251-300 9-10 units 5 clicks Over 300 12 units 6 clicks POC A1C was 6.7% in April it is 7.2% today. Lida download-GMI 8.1% TGT 41%, 57% high 2% low. Only low when he is missing meals. His tresiba was just increased to 32 one to two weeks ago as he was running hyperglycemic He is on peritoneal dialysis ROS CONSTITUTIONAL: Denies weight loss, fever and chills. HEENT: Denies changes in vision and hearing. RESPIRATORY: Denies SOB and cough. CV: Denies palpitations and CP GI: Denies abdominal pain, nausea, vomiting and diarrhea. : Denies dysuria and urinary frequency. MSK: Denies new myalgia and joint pain. SKIN: Denies rash and pruritus. NEUROLOGICAL: Denies headache PSYCHIATRIC: Denies recent changes in mood. PHYSICAL EXAM: GENERAL:using walker no acute distress EYES: EOMI. Anicteric. HENT: Moist mucous membranes. No scleral icterus. No cervical lymphadenopathy. LUNGS: Clear to auscultation bilaterally. CARDIOVASCULAR: Regular rate and rhythm. No murmur. No JVD. ABDOMEN: Soft, non-tender +bs EXTREMITIES: No edema. Non-tender. SKIN: No rashes or lesions. Warm. NEUROLOGIC: No new focal neurological deficits. PSYCHIATRIC: Cooperative. 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 Metabolic acidosis Right foot ulcer Anxiety History of foot ulcer Obesity (BMI 30-39.9) Depression Rotator cuff arthropathy of left shoulder Vitamin D deficiency Allergic rhinitis Anemia Pure hypercholesterolemia Benign essential hypertension Diabetic polyneuropathy Type 2 diabetes mellitus with diabetic chronic kidney disease Erectile dysfunction Type 2 diabetes mellitus with hyperglycemia, with long-term current use of insulin Type 2 diabetes mellitus with diabetic polyneuropathy Type 2 diabetes mellitus with chronic kidney disease 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 LDL goal <70 Surgical History History of nasal surgery Family History Father Lung cancer Mother Hypertension Coronary artery disease CVD (cardiovascular disease) TIA (transient ischemic attack) Sister Diabetes Maternal Uncle Diabetes Other Mental health problem Social History Household Members: Family Housing: House Do you presently have visiting nurse or other home services: Yes Alcohol intake: current Alcohol intake frequency: holidays/special occasions only Comment: sister in room Patient Tobacco Use Status: Never used Tobacco e-Cigarette/Vaping Use: Never Used Second Hand Smoke Exposure: Yes service: No Current occupational status: unemployed Cognitive needs: Yes (wheelchair, walker) Hearing needs: No Vision needs: No Physical Exam Vital Signs: Last Vital Signs Pulse 82 08/18/24 13:06 BP 128/78 08/18/24 13:06 Pulse Ox 96 08/18/24 13:06 Oxygen Delivery Method Room Air 08/18/24 13:06 BMI result Body Mass Index 35.9 Results AMB Hemoglobin A1c AMB Hemoglobin A1c 7.2 % Last Edit by UGO Garcia on 08/18/24 13:28 Results Reviewed Results Reviewed: Laboratory Last Values Glucose (Clinic) 230 mg/dL (60-115) H 08/18/24 13:11 Hgb A1c (Clinic) 7.2 % (4.0-6.0) H 08/18/24 13:13 Assessment & Plan Assessment & Plan (1) Type 2 diabetes mellitus: Code(s): E11.9 - Type 2 diabetes mellitus without complications Category: Medical Qualifiers: Diabetes mellitus exterminator termite insulin use: with [facility] use Diabetes mellitus complication status: with hypoglycemia Diabetes mellitus complication detail: without coma Qualified Code(s): E11.649 - Type 2 diabetes mellitus with hypoglycemia without coma; Z79.4 - skilled nursing (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 of insulin Plan: Discussed with patient importance of not skipping meals to avoid hypoglycemia. Some recent improvement in overall BG readings with increase in long acting insulin. Continue current dosing of medicaitons. Return in 3 months or sooner as needed Orders: Orders AMB Hemoglobin A1c Today E11.649 - Type 2 diabetes mellitus with hypoglycemia without coma, Z79.4 - skilled nursing (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 of insulin Medications: New Dex4 Glucose (dextrose) 15 grams PO .every 15 minutes PRN 198 grams 3RF hypoglycemia NS Changed From insulin degludec (Tresiba FlexTouch U-200 insulin) 30 units (0.15 mL) subcut DAILY 30 days 4.5 mL 10RF To insulin degludec (Tresiba FlexTouch U-200 insulin) 32 units (0.16 mL) subcut DAILY 14.4 mL 10RF 90 days Coding Level of Care Code Est Pt Level 4 (52832) Diagnoses Type 2 diabetes mellitus with hypoglycemia without coma, with long-term current use of insulin E11.649; Z79.4 Diabetes mellitus [facility] insulin use: with exterminator termite use Diabetes mellitus complication status: with hypoglycemia Diabetes mellitus complication detail: without coma
[2024-08-18 13:06] VITALS: BP 128/78; PULSE 82; O2SAT 96; BMI 35.9
[2024-08-18 13:15] LABS: Glucose, Whole Blood 230 mg/dL (60-115)
== END 2024-08-18 13:40 | disposition home or self-care (01) ==
PROVIDERS: PCP Internal Medicine; Visit Provider Internal Medicine
DX: E11.649 Type 2 diabetes mellitus with hypoglycemia without coma (principal); Z79.4 Long term (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 of insulin

== ENCOUNTER → 2024-08-18 13:01 | Outpatient (BNVA) | payer OTHER, SELFPAY | PROVIDERS: PCP Internal Medicine; Visit Provider Internal Medicine | DX: E11.22 Type 2 diabetes mellitus with diabetic chronic kidney disease (principal); E11.40 Type 2 diabetes mellitus with diabetic neuropathy, unspecified; E11.319 Type 2 diabetes mellitus with unspecified diabetic retinopathy without macular edema; E11.649 Type 2 diabetes mellitus with hypoglycemia without coma; N18.9 Chronic kidney disease, unspecified; Z99.2 Dependence on renal dialysis; Z79.4 Long term (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 of insulin | CPT/HCPCS: 82947; 83036; 99212 ==

== ENCOUNTER → 2024-09-14 | Outpatient (BNV) | payer MEDICARE, MEDICAID, SELFPAY | PROVIDERS: PCP Internal Medicine; Visit Provider Internal Medicine Hypertension Specialist | DX: N18.6 End stage renal disease (principal) | CPT/HCPCS: 90962 ==

== ENCOUNTER 2024-09-30 14:23 | Outpatient (AMB) | payer MEDICARE, MEDICAID, SELFPAY ==
[2024-09-30 14:32] VITALS: BP 152/52; PULSE 79; O2SAT 97; BMI 37.7
--- NOTE | 2024-09-30 14:32 | HO.NEPHOV_ITS ---
Vital Signs 09/30/24 14:32 Height 5 ft 7 in Weight 241 lb BMI 37.7 BP 152/52 H Blood Pressure Location Rt brachial Position Sitting Pulse 79 Pulse Source Pulse Oximeter Pulse Oximetry (%) 97 Oxygen Delivery Method Room Air Intake Visit Reasons: 1 MO FU/Conf Weed Science Research Technician Required: No Accompanied by: Sister Allergies No Known Allergies Allergy (Verified 09/30/24 14:34) Medication List - Last Reconciled 09/30/24 by Stone Ulloa MD atorvastatin 80 mg PO DAILY 90 days [Bed pads As directed] blood sugar diagnostic (FreeStyle Lite Strips) As directed tid blood-glucose meter (FreeStyle Lite Meter kit) As directed tid blood-glucose sensor (FreeStyle Lida 3 Plus Sensor device) As directed every 15 days blood-glucose,video game engineer,cont (FreeStyle Lida 3 [place]) As directed bolus insulin pump, 200 unit (CeQur Simplicity) As directed every 4 days [Commode As directed] cyclopentolate 0.5% 1 drp ophthalmic (eye) TID Dex4 Glucose (dextrose) 15 grams PO .every 15 minutes PRN NS dextrose 40% (Glucose Gel) 15 grams PO Q15M PRN diabetic supplies, miscellan. (CeQur Simplicity Cigarette Roller) As directed for use with cequr insulin patch ergocalciferol (vitamin D2) 1,250 mcg PO QWEEK flash glucose sensor (FreeStyle Lida 14 Day Sensor kit) USE DIRECTED EVERY 2 WEEKS FreeStyle Precision Fred Strips (blood sugar diagnostic) once daily NS furosemide 40 mg PO DAILY hydralazine 100 mg PO TID 90 days insulin degludec (Tresiba FlexTouch U-200 insulin) 32 units (0.16 mL) subcut DAILY 90 days insulin lispro subcut insulin lispro 80 -150 5 units on cequr 3 clicks 151-200 6 units 3 clicks 201-250 7-8 units 4 clicks 251-300 9-10 units 5 clicks Over 300 12 units 6 clicks Do not take with breakfast 30 days lactulose 20 grams (30 mL) PO BID lancets (FreeStyle Lancets) 3 times a day prn to confirm glucose sensor losartan 50 mg PO DAILY mirtazapine 30 mg PO DAILY omeprazole 40 mg PO BID 90 days oxycodone 5 mg PO BID-TID PRN 28 days peg 3350-electrolytes 236-22.74-6.74 -5.86 gram (Golytely) 240 mL PO Q10M pen needle, diabetic (BD Ultra-Fine Odette Pen Needle) 1 ea subcut QID prednisolone acetate 1% 1 drp ophthalmic (eye) TID sennosides-docusate sodium 8.6-50 mg (Senexon-S) 1 tab PO BEDTIME PRN Shower Chair As directed walker As directed Do you need a note to return to daycare/school/sports/work: No PFSH Medical History Essential hypertension 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 Metabolic acidosis Right foot ulcer Anxiety History of foot ulcer Obesity (BMI 30-39.9) Depression Rotator cuff arthropathy of left shoulder Vitamin D deficiency Allergic rhinitis Anemia Pure hypercholesterolemia Benign essential hypertension Diabetic polyneuropathy Type 2 diabetes mellitus with diabetic chronic kidney disease Erectile dysfunction Type 2 diabetes mellitus with hyperglycemia, with long-term current use of insulin Type 2 diabetes mellitus with diabetic polyneuropathy Type 2 diabetes mellitus with chronic kidney disease 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 LDL goal <70 Surgical History History of nasal surgery Family History Father Lung cancer Mother Hypertension Coronary artery disease CVD (cardiovascular disease) TIA (transient ischemic attack) Sister Diabetes Maternal Uncle Diabetes Other Mental health problem Social History Household Members: Family Housing: House Do you presently have visiting nurse or other home services: Yes Alcohol intake: current Alcohol intake frequency: holidays/special occasions only Comment: sister in room Patient Tobacco Use Status: Never used Tobacco e-Cigarette/Vaping Use: Never Used Second Hand Smoke Exposure: Yes service: No Current occupational status: unemployed Cognitive needs: Yes (wheelchair, walker) Hearing needs: No Vision needs: No Physical Exam Vital Signs: Last Vital Signs Pulse 79 09/30/24 14:32 BP 152/52 H 09/30/24 14:32 Pulse Ox 97 09/30/24 14:32 Oxygen Delivery Method Room Air 09/30/24 14:32 Results Reviewed Nephrology Results: No Data to Display Assessment & Plan Assessment & Plan (1) ESRD (end stage renal disease): Code(s): N18.6 - End stage renal disease Category: Medical Plan See dialysis note Coding Level of Care Code Global (92860) Diagnoses ESRD (end stage renal disease) N18.6
--- OUTSIDE RECORDS SUMMARY | 2024-09-30 17:25 | XMS_ITS | Data Portability ---
Author Organization [place] - [facility], Allergy Address [address] [place] [phone] Care Team Providers Care Neuropsychologist Name Role Phone MALINDA ROMERO Primary Care Provider Assessment No assessment recorded. Plan of Treatment Reminders Order Date Submit Date Provider Last Modified By Organization Details Last Modified Time Details Appointments None recorded. Lab None recorded. Referral None recorded. Procedures None recorded. Surgeries None recorded. Imaging None recorded. Medication Orders ipratropium bromide 21 mcg (0.03 %) nasal spray 2024 025 [id number], [address] [place], [address], 5 14:41:58 Patient TargetsNo targets recorded. Patient InstructionsNo instructions recorded. Reason for Referral None Reported. Problems Name Problem SNOMED Code Status Onset Date Resolution Date Notes Provider Name and Address Organization Details Recorded Time Oropharyngeal dysphagia 25211751 Active 2024 CARMEN Herrera MD [address] [place] [address], [place], [phone], [facility] - [facility] 5 14:35:21 Nasal congestion 44583665 Active 2024 CARMEN Herrera MD [address] [place] [address], [place], [phone], [facility] 5 14:35:28 Vasomotor rhinitis 7770565 Active 2024 CARMEN Herrera MD [address] [place] [address], [place], [phone], [facility] - [facility] 5 14:40:42 Problem Notes None recorded. Procedures Surgical History Date Name Laterality Status Provider Name and Address Organization Details Recorded Time 09/08/2024 FFL_RE completed CARMEN RIDLEY MD [address] [place] [address], [place], [phone], [facility] - [facility] 09/08/2024 14:36:13 Imaging Results None recorded. Procedure Notes None recorded. Medical Equipment None Reported. Allergies No known drug allergies Medications Name Sig Start Date Stop Date Status Note LastModified by Organization Details LastModified Time losartan 50 mg tablet TAKE 1 TABLET BY MOUTH EVERY DAY active Not Available Not Available No t Available amoxicillin 500 mg capsule TAKE 4 CAPSULES BY MOUTH 1 HOUR PRIOR TO DENTAL PROCEDURE 09/08 completed Not Available Not Available Not Available furosemide 40 mg tablet TAKE 1 TABLET BY MOUTH EVERY DAY active Not Available Not Available No t Available atorvastati n 80 mg tablet TAKE 1 TABLET BY MOUTH EVERY DAY active Not Available Not Available No t Available prednisone 10 mg tablet TAKE 3 TABLETS BY MOUTH DAILY FOR 3 DAYS, 2 TABLETS DAILY FOR 2 DAYS, 1 TABLET DAILY FOR 1 DAY 09/08 completed Not Available Not Available Not Available doxycycline hyclate 100 mg capsule TAKE 1 CAPSULE BY MOUTH TWICE A DAY active Not Available Not Available No t Available trazodone 50 mg tablet TAKE 1 TABLET BY MOUTH AT BEDTIME NEEDED FOR SLEEP 09/08 completed Not Available Not Available Not Available azithromyci n 250 mg tablet TAKE 2 TABLETS BY MOUTH TODAY, THEN TAKE 1 TABLET DAILY FOR 4 DAYS DIRECTED 09/08 completed Not Available Not Available Not Available senna 8.6 mg tablet TAKE 2 TABLETS BY MOUTH EVERY DAY active Not Available Not Available No t Available FreeStyle Lancets 28 gauge 3 TIMES A DAY NEEDED TO CONFIRM GLUCOSE SENSOR active Not Available Not Available No t Available prednisone 20 mg tablet TAKE 2 TABLETS BY MOUTH EVERY DAY FOR 5 DAYS active Not Available Not Available No t Available hydralazine 25 mg tablet TAKE 1 TABLET BY MOUTH THREE TIMES A DAY 09/08 completed Not Available Not Available Not Available amlodipine 5 mg tablet TAKE 2 TABLETS BY MOUTH EVERY DAY 09/08 completed Not Available Not Available Not Available omeprazole 40 mg capsule,del ayed release TAKE 1 CAPSULE BY MOUTH TWICE A DAY active Not Available Not Available No t Available amoxicillin 500 mg tablet TAKE 4 TABLETS BY MOUTH 1 HOUR PRIOR TO DENTAL PROCEDURE 09/08 completed Not Available Not Available Not Available amoxicillin 400 mg-caryu m clavulanate 57 mg/5 mL oral suspension TAKE 6.25 ML BY MOUTH 2 TIMES A DAY FOR 7 DAYS. DISCARD REMAINDER 09/08 completed Not Available Not Available Not Available sodium bicarbonate 650 mg tablet TAKE 1 TABLET ORALLY 2 TIMES A DAY 09/08 completed Not Available Not Available Not Available doxycycline monohydrate 100 mg capsule TAKE 1 CAPSULES BY MOUTH TWICE A DAY FOR 7 DAYS 09/08 completed Not Available Not Available Not Available hydralazine 100 mg tablet TAKE 1 TABLET BY MOUTH 3 TIMES A DAY active Not Available Not Available No t Available mirtazapine 30 mg tablet TAKE 1 TABLET BY MOUTH EVERYDAY AT BEDTIME active Not Available Not Available No t Available losartan 25 mg tablet TAKE 1 TABLET BY MOUTH EVERY DAY active Not Available Not Available No t Available Pred Forte 1 % eye drops,suspe nsion INSTILL 1 DROP INTO AFFECTED EYE 4 TIMES DAILY FOR 4 DAYS THEN STOP 09/08 completed Not Available Not Available Not Available dorzolamide 22.3 mg-timolol 6.8 mg/mL eye drops INSTILL 1 DROP INTO RIGHT EYE TWICE A DAY active Not Available Not Available No t Available hydralazine 50 mg tablet TAKE 2 TABLETS BY MOUTH 3 TIMES A DAY 09/08 completed Not Available Not Available Not Available mupirocin 2 % topical ointment APPLY SMALL AMOUNT TO CATHETER EXIT SITE DAILY 09/08 completed Not Available Not Available Not Available mirtazapine 15 mg tablet TAKE 1 1/2 TABLET BY MOUTH EVERY NIGHT AT BEDTIME active Not Available Not Available No t Available ergocalcife rol (vitamin D2) 1,250 mcg (50,000 unit) capsule TAKE 1 CAPSULE BY MOUTH EVERY FRIDAY active Not Available Not Available No t Available insulin lispro (U-100) 100 unit/mL subcutaneou s solution PLEASE SEE ATTACHED FOR DETAILED DIRECTION S active Not Available Not Available No t Available calcitriol 0.25 mcg capsule TAKE 1 CAPSULE BY MOUTH THREE TIMES A WEEK active Not Available Not Available No t Available ipratropium bromide 21 mcg (0.03 %) nasal spray SPRAY 2 SPRAYS BY INTRANASA L ROUTE TWICE A DAY active Not Available Not Available No t Available oxycodone 5 mg tablet TAKE 1 TABLET BY MOUTH 2-3 TIMES PER DAY NEEDED FOR SEVERE PAIN FOR 28 DAYS active Not Available Not Available No t Available cholecalcif omar (vitamin D3) 25 mcg (1,000 unit) capsule TAKE 1 CAPSULE BY MOUTH EVERY DAY 09/08 completed Not Available Not Available Not Available insulin lispro (U-100) 100 unit/mL subcutaneou s pen INJECT 5 UNITS SUBCUTANE OUSLY 3 TIMES A DAY BEFORE MEALS PER SLIDING SCALE 2 UNITS FOR BG OVER 200 09/08 completed Not Available Not Available Not Available Em-Reinaldo 0.8 mg tablet TAKE 1 TABLET BY MOUTH EVERY DAY active Not Available Not Available No t Available lactulose 10 gram/15 mL oral solution 15 ML BY MOUTH DAILY FOR CONSTIPAT ION active Not Available Not Available No t Available Glutose-45 40 % oral gel PLEASE SEE ATTACHED FOR DETAILED DIRECTION S active Not Available Not Available No t Available FreeStyle Lite Meter kit DIRECTED THREE TIMES A DAY active Not Available Not Available No t Available Lantus Solostar U-100 Insulin 100 unit/mL (3 mL) subcutaneou s pen INJECT 26 UNITS SUBCUTANE OSLY DAILY 09/08 completed Not Available Not Available Not Available Chest Congestion Relief 100 mg/5 mL oral liquid TAKE 5 MLS BY MOUTH EVERY 6 HOURS NEEDED FOR COUGH FOR 200 DAYS 09/08 completed Not Available Not Available Not Available sevelamer carbonate 800 mg tablet TAKE 1 TABLET BY MOUTH THREE TIMES A DAY WITH MEALS active Not Available Not Available No t Available GaviLyte-G 236 gram-22.74 gram-6.74 gram-5.86 gram oral solution PLEASE SEE ATTACHED FOR DETAILED DIRECTION S 09/08 completed Not Available Not Available Not Available Senexon-S 8.6 mg-50 mg tablet TAKE 1 TABLET BY MOUTH EVERY DAY AT BEDTIME NEEDED FOR CONSTIPAT ION active Not Available Not Available No t Available ProAir RespiClick 90 mcg/actuati on breath activated 2 PUFFS INHALED EVERY 4 TO 6 HOURS NEEDED FOR SHORTNESS OF BREATH OR WHEEZING active Not Available Not Available No t Available Tresiba FlexTouch U-200 insulin 200 unit/mL (3 mL) subcutaneou s pen INJECT 20 UNIT (0.1 ML) SUBCUTANE OUSLY DAILY active Not Available Not Available No t Available FreeStyle Precision Fred Strips EVERY DAY active Not Available Not Available Not Available FreeStyle Lida 14 Day Sensor kit USE DIRECTED EVERY 2 WEEKS 09/08 completed Not Available Not Available Not Available BD Odette 2nd Gen Pen Needle 32 gauge x 5/32 USE DIRECTED 4 TIMES DAILY active Not Available Not Available No t Available CeQur Simplicity 2 unit device DIRECTED EVERY 4 DAYS active Not Available Not Available No t Available CeQur Simplicity Wire Spinner DIRECTED FOR USE WITH CEQUR INSULIN PATCH active Not Available Not Available No t Available insulin glargine-yf gn (U-100) 100 unit/mL (3 mL) subcutaneou s pen INJECT 26 UNITS SUBCUTANE OUSLY DAILY 09/08 completed Not Available Not Available Not Available FreeStyle Lida 3 [place] USE DIRECTED active Not Available Not Available No t Available FreeStyle Lida 3 Plus Sensor device APPLY DIRECTED EVERY 15 DAYS active Not Available Not Available No t Available Vitals Date Recorded Body height Body mass index (BMI) Body weight Provider Name and Address Organization Details Last Updated DateTime 09/08/2024 167.64 cm 37.6 kg/m2 035216.02 g Gloria Mehta [place] - [facility] 09/08/2024 14:31:30 Social History None recorded. Functional Status None recorded. Mental Status None recorded. Family History Nothing Reported. Medical History Condition Response Diabetes Y Anemia Y Anxiety Y GERD/Reflux Y High Cholesterol Y Stroke Y Hypertension Y Depression Y Kidney Disease Y Past Encounters Encounter ID Performer Location Encounter Start Date Encounter Closed Date Diagnosis/Indication Diagnosis SNOMED-CT Code Diagnosis ICD10 Code Diagnosis Note [id number] CARMEN RIDLEY MD [facility] [address] [phone] 09/08/2024 13:59:36 09/08/2024 14:43:43 Oropharyngeal dysphagia 12684354 R13.12 He likely has dysphagia related to his stroke. He has not had any recent pneumonia and seems to be swallowing well although he does clear his throat often. I asked them to let me know if he develops any pneumonia. He has been treated for acid reflux and takes a PPI daily. I recommend he continue this. Nasal congestion 6100511 0 R09.81 Likely due to vasomotor rhinitis I will send a prescripti on for juliann [place] Vasomotor rhinitis 64850 03 J30.0 I will send a prescripti on for juliann [place] Health Concerns Section Related Observation LastModified by Organization Detai ls LastModified Time None Recorded Concern Status LastModified by Organization Details LastModified Time None Recorded Advance Directives Directive None Recorded Payers Encounter Date Sequence Insurance Name Policy Number Policy Saleem Covered Member ID Saleem Member ID Guarantor Name 09/08/2024 1 [facility] NET PLAN (MEDICAID HMO) XAVIER Howard Chino [id number] Howard Chino Notes Date Note Type Note Provider Name and Address Organization Details Recorded Time 09/08/2024 text/html He presents with nasal congestion and drip. He is always sniffing through his nose, especially when he eats. He had a CVA a year ago and had dysphagia with it. He used to thicken his liquids. Now he tends to clear his throat a lot after he eats. He takes 40mg of omeprazole BID. CARMEN RIDLEY MD [address] [place] [address], [place], [phone], [place] - [facility] 09/08/2024 14:44:26
--- OUTSIDE RECORDS SUMMARY | 2024-09-30 17:25 | XMS_ITS ---
Author Name Laila Stone Connors marpb Address [address] [place] [address] Phone [phone] Organization [facility] e, NA DOCUMENT DISCLAIMER Multiple document versions may exist, please be sure you review the latest version. The information in the [facility] [place] Progress Note Document represents a providers documented clinical note containing certain health and medical information. It may not contain the complete medical history for the patient and should be independently verified. The represented time in the document is Eastern Time PROVIDER ROUNDING NOTE PD Patient:Eva?Lulú,?1970,?54y,?M Dialysis?Location:?[facility]ALYS[facility]?CENTER Attending?Vending Supervisor:?Stone?Stewart?Laila Service?Date:?09/30/2024 Service?Provider:?Stone?tSewart?Laila,? I?met?face?to?face?with?the?patient?today. OVERVIEW The?patient?presented?with?ESRD Primary?cause?of?renal?failure:?Type?2?diabetes?mellitus&#16 0;with?diabetic?chronic?kidney?disease Medications?and?labs?reviewed. VITALS?ASSESSMENT Vitals?measured?in-clinic. BP?Sit ??09/21/2024:?152/70 ??08/18/2024:?136/62 ??06/24/2024:?194/87 Weight?(kg) ??09/21/2024:?107.4 ??08/18/2024:?101.5 ??06/24/2024:?106.5 Temp ??09/21/2024:?98.6 Respirations ??09/21/2024:?18 Pulse ??09/21/2024:?79 Height ??04/13/2024:?5'?7'' TREATMENT?ASSESSMENT BP ??09/27/2024:?181/79 FLUID?ASSESSMENT EDW?(kg) ??09/27/2024:?106 Weight?(kg) ??09/27/2024:?109.3 EDW?Variance ??09/27/2024:?3.3 DIALYSIS?PRESCRIPTION ??CCPD?7x?Week?Start?date:?09/22/24 ??Cycles:?3 ??Cycler?Fill:?2000 ??Avg?Dwell:?2:10 ??Total?Cycler:?480 ??Last?Fill:? ??Day?Exch:?0 ??Day?Fill:? ??EDW:?106 ??Rx?updated?on:?09/22/2024 ADEQUACY?ASSESSMENT PD?Kt/V,?Total ??08/11/2024:?1.85 ??07/28/2024:?1.5 ??04/23/2024:?3.81 ACCESS?ASSESSMENT ??Access?Type:?PDCatheter ??Access?SubType:?Double?Cuff?Coiled ??Access?Status:?Active?(In?Use)?-?03/16/2024 ??Access?Location:?Left?Lower?Quadrant ??Placed:?01/22/2024 ANEMIA?ASSESSMENT HGB,?TSAT ??09/21/2024:?11.3,?46.0 ??08/18/2024:?11.7,?57.0 ??07/28/2024:?13.8,?55.0 ?? Ferritin ??09/21/2024:?503.0 ??08/18/2024:?447.0 ??07/28/2024:?425.0 Active?Orders:?Iron?Sucrose?(Venofer)?200?mg?Every?4?we eks.?Mircera?150?mcg?Every?4?weeks. BMM?ASSESSMENT PTH,?Intact ??09/21/2024:?160.0 ??08/18/2024:?232.0 ??07/28/2024:?278.0 ?? Calcium,?Phosphorus ??09/21/2024:?9.2,?5.0 ??08/18/2024:?8.8,?5.0 ??07/28/2024:?8.7,?5.9 NUTRITION?ASSESSMENT Potassium,?Albumin ??09/21/2024:?4.8,?4.0 ??08/18/2024:?4.6,?3.8 ??07/28/2024:?5.1,?3.8 PHYSICAL?EXAM Exam?Performed.?Vital?Signs?Reviewed.?Lungs?-?Clear.?CV&#160 ;-?Blood?pressure?noted.?EXT?-?1+?edema.?EXT?-?No ulcers. DIAGNOSIS Chief?Complaint:?N18.6?End?stage?renal?disease Patient?data?updated?09/30/2024?at?2:42?PM Signed?By:?Laila,?Stone?Stewart,???on?09/30/2024 2:44:57?PM END OF DOCUMENT
--- OUTSIDE RECORDS SUMMARY | 2024-09-30 17:25 | XMS_ITS ---
Author Name Rosa Maria, Clinic Address [address] [place] [id number] Phone [phone] Organization [facility] e, NA DOCUMENT DISCLAIMER Multiple document versions may exist, please be sure you review the latest version. 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.4 Active February [...] 1 capsule ORAL August 11, 2024 Active dorzolamide-magdi lol 22.3-6.8 mg/mL Instill as directed 1 drop OPHTHALMIC September 30, 2024 Active furosemide 40 mg Take by mouth once a day 1 tablet ORAL April 23, 2024 Active Humalog KwikPen Insulin 100 unit/mL Inject subcutaneously three times a day with meals SUBCUTANEOUS August 18, 2024 Active hydralazine 100 mg Take by mouth three times a day 1 tablet ORAL September 21, 2024 Active lactulose 10 gram/15 mL Take by mouth once a day as directed 15 ml ORAL July 29, 2024 Active losartan 50 mg Take by mouth once a day 1 tablet ORAL June 15, 2024 Active mirtazapine 30 mg Take by mouth every night at bedtime 1 tablet ORAL August 18, 2024 Active Nephro-Reinaldo 0.8 mg Take by mouth once a day 1 tablet ORAL August 11, 2024 Active omeprazole 20 mg Take by mouth twice a day 2 tablet ORAL March 19, 2024 Active oxycodone 5 mg Take by mouth three times a day as needed for pain 1 tablet ORAL March 19, 2024 Active senna 8.6 mg Take by mouth once a day 2 tablet ORAL September 08, 2024 Active Sevelamer Carbonate Tablet 800 mg Take By Mouth Three times a day With Meals 1 Tablet By Mouth August 17, 2024 August 11, 2025 Active Tresiba FlexTouch U-100 100 unit/mL (3 mL) Inject subcutaneously every night at bedtime 36 unit SUBCUTANEOUS August 18, 2024 Active ergocalciferol (vitamin D2) 1,250 mcg (50,000 unit) Take by mouth 1 capsule ORAL September 21, 2024 Discontinued VITAL SIGNS Weight Vital Sign Value Date / Time Estimated Dry Weight 106 kg September 22 025 11:59 PM Other Other Value Date / Time Height 170.18 cm April 13, 2024 12:00 AM Body Mass Index 33.91 kg/m2 September 13, 2024 0 2:40 PM LAB RESULTS Hematology Result Type Result Value Relevant Referen ce Range Interpretation Date Platelets 159 1000/mcL 130 - 400 1000/mcL - [facility] 2023 Ferritin 250 ng/mL 22 - 322 ng/mL - April UIBC/TIBC 224 mcg/dL 155 - 355 mcg/dL - April 23, 2024 TIBC (Calc) 271 mcg/dL 185 - 515 mcg/dL - [facility] 2023 Transferrin Sat. (Calc) 17 % 20 - 55 % Low April 23 WBC (No Diff) 5.85 1000/mcL 4.80 - 10.80 1000/mcL - April 23, 2024 Platelets 158 1000/mcL 130 - 400 1000/mcL - Dece mber 2023 WBC (No Diff) 5.27 1000/mcL 4.80 - 10.80 1000/mcL - May 25, 2024 Ferritin 266 ng/mL 22 - 322 ng/mL - May 162023 Transferrin Sat. (Calc) 42 % 20 - 55 % - May 25 TIBC (Calc) 254 mcg/dL 185 - 515 mcg/dL - Decembe r 2023 UIBC/TIBC 148 mcg/dL 155 - 355 mcg/dL Low May 25, 2024 Transferrin Sat. (Calc) 43 % 20 - 55 % - June 24, 2024 WBC (No Diff) 4.69 1000/mcL 4.80 - 10.80 1000/mcL Low June 24, 2024 Platelets 168 1000/mcL 130 - 400 1000/mcL - [facility] [email or web address] Ferritin 193 ng/mL 22 - 322 ng/mL - June UIBC/TIBC 161 mcg/dL 155 - 355 mcg/dL - June 24, 2024 TIBC (Calc) 283 mcg/dL 185 - 515 mcg/dL - June 24, 2024 WBC (No Diff) 5.77 1000/mcL 4.80 - 10.80 1000/mcL - July 28, 2024 Platelets 142 1000/mcL 130 - 400 1000/mcL - uary 2024 RDW 15.0 % 11.5 - 14.5 % High July MCHC 32.8 g/dL 30.0 - 36.0 g/dL - July 28, 2024 Hemoglobin x 3 41.4 % 42.0 - 54.0 % Low 2024 MCH 30.3 pg 27.0 - 31.0 [...] 262 mcg/dL 185 - 515 mcg/dL - uar 2024 Ferritin 447 ng/mL 22 - 322 ng/mL High August 18, 2024 Iron 149 mcg/dL 45 - 160 mcg/dL - August 18, 2024 UIBC/TIBC 112 mcg/dL 155 - 355 mcg/dL Low August Transferrin Sat. (Calc) 57 % 20 - 55 % High August 18, 2024 TIBC (Calc) 261 mcg/dL 185 - 515 mcg/dL - August WBC (No Diff) 5.87 1000/mcL 4.80 - 10.80 1000/mcL - August 18, 2024 MCHC 31.2 g/dL 30.0 - 36.0 g/dL - August MCH 29.4 pg 27.0 - 31.0 pg - August 18, 2024 Hemoglobin x 3 35.1 % 42.0 - 54.0 % Low August Platelets 161 1000/mcL 130 - 400 1000/mcL - Kenneth h 2024 RDW 13.9 % 11.5 - 14.5 % - August 18 025 Retic HGB (CHr) 33.0 pg 25.4 - 31.8 pg High August 18, 2024 RBC 3.80 mill/mcL 4.70 - 6.10 mill/mcL Low September 21, 2024 HCT 35.2 % 42.0 - 52.0 % Low September 21 025 WBC (No Diff) 6.13 1000/mcL 4.80 - 10.80 1000/mcL - September 21, 2024 TIBC (Calc) 291 mcg/dL 185 - 515 mcg/dL - September Transferrin Sat. (Calc) 46 % 20 - 55 % - September 21, 2024 Iron 135 mcg/dL 45 - 160 mcg/dL - September 21, 2024 UIBC/TIBC 156 mcg/dL 155 - 355 mcg/dL - September Retic HGB (CHr) 33.0 pg 25.4 - 31.8 pg High September 21, 2024 Hemoglobin x 3 33.9 % 42.0 - 54.0 % Low September Platelets 208 1000/mcL 130 - 400 1000/mcL - Apri l 2024 RDW 14.9 % 11.5 - 14.5 % High September 21, 025 HGB 11.3 g/dL 14.0 - 18.0 g/dL Low September MCH 29.8 pg 27.0 - 31.0 pg - September 21, 2024 MCHC 32.2 g/dL 30.0 - 36.0 g/dL - September Ferritin 503 ng/mL 22 - 322 ng/mL High September 21, 2024 Metabolic/Renal Result Type Result Value Relevant Referen ce Range Interpretation Date Hemoglobin A1c 7.0 % 4.8 - 5.9 % High April 23, 2024 Creatinine, Serum 6.98 mg/dL 0.60 - 1.30 [...] - 19 mg/dL High August 11, 2024 Bicarbonate 24 mEq/L 22 - 29 mEq/L - August 18, 2024 Sodium 146 mEq/L 136 - 145 mEq/L High August 18, 2024 BUN/Creat Ratio 11.3 10.0 - 20.0 - August Creatinine, Serum 6.57 mg/dL 0.60 - 1.30 mg/dL High August 18, 2024 BUN 74 mg/dL 6 - 19 mg/dL High August 18 Chloride 108 mEq/L 96 - 108 mEq/L - August 18, 2024 Potassium 4.6 mEq/L 3.5 - 5.1 mEq/L - August 18, 2024 Chloride 108 mEq/L 96 - 108 mEq/L - September 21, 2024 Sodium 146 mEq/L 136 - 145 mEq/L High September 21, 2024 Potassium 4.8 mEq/L 3.5 - 5.1 mEq/L - September 21, 2024 Bicarbonate 21 mEq/L 22 - 29 mEq/L Low September 21, 2024 BUN/Creat Ratio 9.2 10.0 - 20.0 Low September BUN 64 mg/dL 6 - 19 mg/dL High September 21 Creatinine, Serum 6.93 mg/dL 0.60 - 1.30 mg/dL High September 21, 2024 Bone/Mineral Result Type Result Value Relevant Referen ce Range Interpretation Date Vitamin D 25 Hydroxy 29.0 ng/mL 30.0 - 100.0 ng/mL Low March 19, 2024 Magnesium 2.0 mg/dL 1.6 - 2.6 mg/dL - March PTH-Intact, Plasma 154 pg/mL 16 - 80 pg/mL High Apr Magnesium 1.6 mg/dL 1.6 - 2.6 mg/dL - April 23, 2024 PTH-Intact, Plasma 160 pg/mL 16 - 80 pg/mL High May Magnesium 1.9 mg/dL 1.6 - 2.6 mg/dL - May 25, 2024 PTH-Intact, Plasma 197 pg/mL 16 - 80 pg/mL High Jun Magnesium 2.3 mg/dL 1.6 - 2.6 mg/dL - June PTH-Intact, Plasma 278 pg/mL 16 - 80 pg/mL High Jul ru2024 Vitamin D 25 Hydroxy 56.2 ng/mL 30.0 - 100.0 ng/mL - July 28, 2024 Alkaline Phosphatase 75 U/L 40 - 129 U/L - [id number] Calcium, Total 8.7 mg/dL 8.4 - 10.2 mg/dL - [id number] Ca x P Product 51 0 - 54 - July 172024 Phosphorus 5.9 mg/dL 2.6 - 4.5 mg/dL High July 28, 2024 Magnesium 2.1 mg/dL 1.6 - 2.6 mg/dL - July 28, 2024 Corrected Ca x P Product 53 0 - 54 - July 28 PTH-Intact, Plasma 232 pg/mL 16 - 80 pg/mL High Mar ch 2024 Magnesium 2.0 mg/dL 1.6 - 2.6 mg/dL - August 18, 2024 Corrected Ca x P Product 45 0 - 54 - August 18, 2024 Ca x P Product 44 0 - 54 - August 18, 2024 Phosphorus 5.0 mg/dL 2.6 - 4.5 mg/dL High August 18, 2024 Calcium, Total 8.8 mg/dL 8.4 - 10.2 mg/dL - 2024 Corrected Ca x P Product 46 0 - 54 - September 21, 2024 Magnesium 2.0 mg/dL 1.6 - 2.6 mg/dL - September 21, 2024 Phosphorus 5.0 mg/dL 2.6 - 4.5 mg/dL High September 21, 2024 Ca x P Product 46 0 - 54 - September 21, 2024 Calcium, Total 9.2 mg/dL 8.4 - 10.2 mg/dL - Apri l 2024 PTH-Intact, Plasma 160 pg/mL 16 - 80 pg/mL High Apr il 2024 Liver/Nutrition Result Type Result Value Relevant Reference Range Interpre tation Date SGOT (AST) 17 U/L 13 - 39 U/L - July 28, 2024 Albumin (BCG) 3.8 g/dL 3.5 - 5.2 g/dL - 2024 SGPT (ALT) 21 U/L 7 - 52 U/L - July 28 Glucose 75 mg/dL 70 - 100 mg/dL - July 172024 Albumin (BCG) 3.8 g/dL 3.5 - 5.2 g/dL - August Glucose 196 mg/dL 70 - 100 mg/dL High August 18, 2024 Glucose 171 mg/dL 70 - 100 mg/dL High September 21, 2024 Albumin (BCG) 4.0 g/dL 3.5 - 5.2 g/dL - September Lipid Result Type Result Value Relevant Referen ce Range Interpretation Date Cholesterol, Total 108 mg/dL 0 - 199 [...] (HBsAg) Negative No Reference Range Provided - September 21, 2024 DIALYSIS PRESCRIPTION CCPD Data Element Value Order Date/Time September 22, 2024 Frequency 7X Week Treatment Days [id number] n Estimated Dry Weight 106 kg Calcium Content in Bag (mEq/L) 2.5 [...] Vaccine Date Dose Route Status HEPLISAV-B, Series 4 of 4 August 18, 2024 20.0 mcg Intram uscular Completed HEPLISAV-B, Series 3 of 4 May 25, 2024 20.0 mcg Int ramuscular Completed HEPLISAV-B, Series 2 of April 28, 2024 20.0 mcg Int ramuscular Completed HEPLISAV-B April 01, 2024 20.0 mcg Intramuscular Compl eted Flu Vaccine - Flucelvax Trivalent March 23, 2024 0.5 mL Intramuscular Completed TRANSPLANT WAITLIST STATUS No Information on Transplant Waitlist Status ADVANCE DIRECTIVES Directive Description Ordered By Effective Date Resuscitation status Full Code Stone William [facility] Mar 19, 2024 DIALYSIS TREATMENTS (CAPD/CCPD treatments include self-reported information entered by the patient and may not contain the complete representation of a treatment.) CCPD-PatientHub Date Exchanges Fill Volume Exchange Solution Dialysis Access Meds-entered by patient September 29, 2024 1 of 1 - Dextrose 2.5% Peritoneal Dialysis-PD Catheter-Double Cuff Coiled, Left Lower Quadrant of Abdomen Access Placed on January 22, 2024 - Vitals Time Weight BP Heart Rate Temperature Blood Sugar September 29, 2024 (AM) 109.3 kg 152/52 mmHg 79 beats per minut e 98.1 deg. F 156 mg/dL CCPD-PatientHub Date Exchanges Fill Volume Exchange Solution Dialysis Access Meds-entered by patient September 28, 2024 1 of 1 - Dextrose 2.5% Peritoneal Dialysis-PD Catheter-Double Cuff Coiled, Left Lower Quadrant of Abdomen Access Placed on January 22, 2024 - Vitals Time Weight BP Heart Rate Temperature Blood Sugar September 28, 2024 (AM) 108.84 kg - - 98.4 deg. F - CCPD-PatientHub Date Exchanges Fill Volume Exchange Solution Dialysis Access Meds-entered by patient September 27, 2024 1 of 1 - Dextrose 2.5% Peritoneal Dialysis-PD Catheter-Double Cuff Coiled, Left Lower Quadrant of Abdomen Access Placed on January 22, 2024 - Vitals Time Weight BP Heart Rate Temperature Blood Sugar September 27, 2024 (AM) 109.3 kg 181/79 mmHg 71 beats per minut e 97.9 deg. F 158 mg/dL
== END 2024-09-30 14:52 | disposition home or self-care (01) ==
LOC: HO.HKA 14:24
PROVIDERS: PCP Internal Medicine; Visit Provider Internal Medicine Hypertension Specialist
DX: N18.6 End stage renal disease (principal)
CPT/HCPCS: 99024

== ENCOUNTER → 2024-09-30 14:23 | Outpatient (BNVA) | payer MEDICARE, MEDICAID, SELFPAY | PROVIDERS: PCP Internal Medicine; Visit Provider Internal Medicine Hypertension Specialist | DX: N18.6 End stage renal disease (principal) | CPT/HCPCS: 99212 ==

== ENCOUNTER 2024-10-11 13:52 | Outpatient (AMB) | payer MEDICARE, MEDICAID, SELFPAY ==
--- NOTE | 2024-10-11 14:01 | MHC.PC.OV ---
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) Accompanied by: Sister Allergies No Known Allergies Allergy (Verified 10/11/24 14:16) Medication List - Last Reconciled 10/11/24 by LATRICE Regan atorvastatin 80 mg PO DAILY 90 days [Bed pads As directed] blood sugar diagnostic (FreeStyle Lite Strips) As directed tid blood-glucose meter (FreeStyle Lite Meter kit) As directed tid blood-glucose sensor (FreeStyle Lida 3 Plus Sensor device) As directed every 15 days blood-glucose,customer service trainer,cont (FreeStyle Lida 3 [place]) As directed bolus insulin pump, 200 unit (CeQur Simplicity) As directed every 4 days [Commode As directed] cyclopentolate 0.5% 1 drp ophthalmic (eye) TID Dex4 Glucose (dextrose) 15 grams PO .every 15 minutes PRN NS dextrose 40% (Glucose Gel) 15 grams PO Q15M PRN diabetic supplies, miscellan. (CeQur Simplicity Business System Consultant) As directed for use with cequr insulin patch ergocalciferol (vitamin D2) 1,250 mcg PO QWEEK flash glucose sensor (FreeStyle Lida 14 Day Sensor kit) USE DIRECTED EVERY 2 WEEKS FreeStyle Precision Fred Strips (blood sugar diagnostic) once daily NS furosemide 40 mg PO DAILY hydralazine 100 mg PO TID 90 days insulin degludec (Tresiba FlexTouch U-200 insulin) 32 units (0.16 mL) subcut DAILY 90 days insulin lispro subcut insulin lispro 80 -150 5 units on cequr 3 clicks 151-200 6 units 3 clicks 201-250 7-8 units 4 clicks 251-300 9-10 units 5 clicks Over 300 12 units 6 clicks Do not take with breakfast 30 days lactulose 20 grams (30 mL) PO BID lancets (FreeStyle Lancets) 3 times a day prn to confirm glucose sensor losartan 50 mg PO DAILY mirtazapine 30 mg PO DAILY omeprazole 40 mg PO BID 90 days oxycodone 5 mg PO BID-TID PRN 28 days peg 3350-electrolytes 236-22.74-6.74 -5.86 gram (Golytely) 240 mL PO Q10M pen needle, diabetic (BD Ultra-Fine Odette Pen Needle) 1 ea subcut QID prednisolone acetate 1% 1 drp ophthalmic (eye) TID sennosides-docusate sodium 8.6-50 mg (Senexon-S) 1 tab PO BEDTIME PRN Shower Chair As directed walker As directed Tobacco use date assessed: 10/11/24 Dental Screening Dental Screen Date: 10/11/24 Did you have a dental visit in the last 12 months?: Yes Did you have a dental problem in the last 6 months where you did not have access to dental care?: No Was dental information given to patient?: Patient has dentist HPI needs a face to face for VNA services HPI Details The patient is a 54-year-old male presenting with a need for ongoing physical therapy due to complications after a CVA, focusing specifically on persistent left-sided weakness and balance issues. He is engaged in rehabilitative therapy to regain strength in the affected limbs. Additionally, the patient is managing diabetic retinopathy in his right eye. He is receiving regular eye injections to control bleeding behind the eye and is under consideration for surgical interventions. The patient's diabetes management shows a moderate level of control, with a hemoglobin A1c standing at 7.2% despite the complexities introduced by chronic kidney disease and dialysis treatment. His overall diabetes management is integrated with regular follow-ups and testing to ensure the best possible outcomes. [facility] Medical History Essential hypertension 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 Metabolic acidosis Right foot ulcer Anxiety History of foot ulcer Obesity (BMI 30-39.9) Depression Rotator cuff arthropathy of left shoulder Vitamin D deficiency Allergic rhinitis Anemia Pure hypercholesterolemia Benign essential hypertension Diabetic polyneuropathy Type 2 diabetes mellitus with diabetic chronic kidney disease Erectile dysfunction Type 2 diabetes mellitus with hyperglycemia, with long-term current use of insulin Type 2 diabetes mellitus with diabetic polyneuropathy Type 2 diabetes mellitus with chronic kidney disease 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 LDL goal <70 Surgical History History of nasal surgery Family History Father Lung cancer Mother Hypertension Coronary artery disease CVD (cardiovascular disease) TIA (transient ischemic attack) Sister Diabetes Maternal Uncle Diabetes Other Mental health problem Social History Household Members: Family Housing: House Do you presently have visiting nurse or other home services: Yes Alcohol intake: current Alcohol intake frequency: holidays/special occasions only Comment: sister in room Patient Tobacco Use Status: Never used Tobacco e-Cigarette/Vaping Use: Never Used Second Hand Smoke Exposure: Yes service: No Current occupational status: unemployed Cognitive needs: Yes (wheelchair, walker) Hearing needs: No Vision needs: No Questionnaire Thrive Questionnaire Date Thrive assessed: 04/30/24 ANAHI-7 AMB Questionnaire ANAHI-7 Date ANAHI - 7 assessed: 04/30/24 Source: Developed by Drs. Zay Babb, Genesis Aiken, Tony Garcia and colleagues, with an educational phoenix from [employer]. Review of Systems Const Denies headache(s) Eyes Denies loss of vision ENT Denies vertigo, Denies dizziness, Denies headache(s) and Denies sore throat Card Denies chest pain, Denies leg edema, Denies lightheadedness and Reports dyspnea on exertion (mild-resolves shortly after) Resp Denies cough, Denies hemoptysis, Reports dyspnea on exertion (mild-resolves shortly after) and Denies wheezing GI Denies abdominal pain, Denies melena, Denies constipation, Denies diarrhea, Denies vomiting and Reports other (peritoneal dialysis catheter in place) Denies difficulty urinating Musc Denies arthralgias, Denies joint swelling, Reports muscle weakness (left arm and left leg), Denies numbness, Denies tingling and Reports other (pain in bilateral lower extremities from neuropathy) Neuro Denies Abnormal speech present, Denies behavioral changes, Denies vertigo, Denies dizziness, Denies headache(s), Denies loss of vision, Denies memory loss, Denies numbness and Denies tingling Psych Denies anxiety, Denies behavioral changes, Denies depression, Denies memory loss and Denies panic attacks Ashu/Lymph Denies easy bleeding and Denies easy bruising Aller/Immun Denies wheezing Physical exam (Primary Care) Vital Signs: Last Vital Signs Temp 97.7 F 10/11/24 14:04 Pulse 81 10/11/24 14:04 BP 130/70 10/11/24 14:04 Pulse Ox 97 10/11/24 14:04 Oxygen Delivery Method Room Air 10/11/24 14:04 BMI result Body Mass Index 37.7 Tobacco/Smoking Status: Tobacco use Status Tobacco use date assessed 10/11/24 10/11/24 14:14 Patient Tobacco Use Status Never used Tobacco 10/11/24 14:14 e-Cigarette/Vaping Use Never Used 10/11/24 14:14 Thrive Assessment: Date of Thrive Assessment Date Thrive assessed 04/30/24 10/11/24 14:14 Const General: healthy appearing, no acute distress, alert and awake Nutritional Appearance: well nourished Orientation/consciousness: oriented to person, oriented to place and oriented to time HENMT Ears: external ears normal General nose exam: Normal external nose present Eyes Conjunctivae: conjunctivae normal Sclerae: sclerae normal Pupils: Equal, round and reactive pupils present Neck Neck: Yes no lymphadenopathy and Yes no JVD Thyroid: Thyroid normal Carotids: no bruits Resp Effort & Inspection: normal respiratory effort and not tachypneic Auscultation: no crackles, no rales, no rhonchi and no wheezes Cardio Rate: regular rate Rhythm: regular rhythm Heart sounds: no murmurs and normal S1 and S2 GI Inspection: Yes Abdominal wall edema, Yes distended, Yes obesity and Yes other (peritoneal catheter in place) Palpation (GI): Soft to palpation and nontender Auscultation: normal bowel sounds General: Yes no CVA tenderness Back/Spine/Pelvis Back: no CVA tenderness Skin General skin exam: no rashes or lesions noted and dry skin Neuro General: oriented to person, oriented to place and oriented to time Cranial nerves: Yes Equal, round and reactive pupils present Speech: No Abnormal speech present Gait exam (Neuro): Normal gait present Extrem Right upper extremity: full ROM Left upper extremity: full ROM and shoulder/upper arm (weaker than right) Right lower extremity: full ROM; no edema Left lower extremity: full ROM and lower leg (slightly weaker than right); no edema Psych Mental Status: mental status grossly normal Speech and movement: Normal speech and movement present Affect: normal affect Attitude: cooperative Thought process: Normal thought process present Coding Level of Care Code Est Pt Level 3 (01060) Diagnoses 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 I63.12 ESRD (end stage renal disease) N18.6 Type 2 diabetes mellitus with hyperglycemia, with long-term current use of insulin E11.65; Z79.4 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 Left-sided weakness R53.1 Abnormality of gait due to impairment of balance R26.89 Time Spent (min) 31 Assessment & Plan Assessment & Plan (1) 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: Code(s): I63.12 - Cerebral infarction due to embolism of basilar artery Category: Medical (2) ESRD (end stage renal disease): Code(s): N18.6 - End stage renal disease Category: Medical (3) Type 2 diabetes mellitus with hyperglycemia, with long-term current use of insulin: Code(s): E11.65 - Type 2 diabetes mellitus with hyperglycemia; Z79.4 - 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 Management of diabetic retinopathy includes regular follow-up appointments with the wheelage clerk to assess treatment outcomes and consider future interventions. The patient's diabetes management will continue with vigilant monitoring of glucose levels and periodic assessment of associated renal impacts. The patient's status on the kidney transplant list remains a priority, ensuring all preparatory measures are up to date. Patient was informed and verbally consented to the use of an ambient scribe for clinic note documentation during this visit. Orders: Referrals Vis[facility]/Hospice Referral I63.12 - Cerebral infarction due to embolism of basilar artery, R26.89 - Other abnormalities of gait and mobility, R53.1 - Weakness Patient Instructions: - Continue attending scheduled physical therapy appointments. - Follow eye care and treatment plan as directed by your wheelage clerk. - Monitor glucose levels regularly, aiming to keep blood sugar within target range. - Ensure dialysis sessions are consistently followed, maintaining infection control. - Communicate any new symptoms or health changes promptly. - Follow up on kidney transplant list requirements as scheduled.
[2024-10-11 14:04] VITALS: BP 130/70; PULSE 81; TEMP 36.5; O2SAT 97; BMI 37.7
--- OUTSIDE RECORDS SUMMARY | 2024-10-11 16:38 | XMS_ITS | Data Portability ---
Author Organization [place] - [facility], Allergy Address [address] [place] [id number] Care Team Providers Care Preparation Plant Supervisor Name Role Phone MALINDA ROMERO Primary Care Provider Assessment No assessment recorded. Plan of Treatment Reminders Order Date Submit Date Provider Last Modified By Organization Details Last Modified Time Details Appointments None recorded. Lab None recorded. Referral None recorded. Procedures None recorded. Surgeries None recorded. Imaging None recorded. Medication Orders ipratropium bromide 21 mcg (0.03 %) nasal spray 2024 025 [facility] #[id number], [address] [place], [address], 5 14:41:58 Patient TargetsNo targets recorded. Patient InstructionsNo instructions recorded. Reason for Referral None Reported. Problems Name Problem SNOMED Code Status Onset Date Resolution Date Notes Provider Name and Address Organization Details Recorded Time Oropharyngeal dysphagia 82855478 Active 2024 CARMEN Herrera MD [address] [place] [address], [place], [phone], [facility] - [facility] 5 14:35:21 Nasal congestion 46143704 Active 2024 CARMEN Herrera MD [address] [place] [address], [place], [phone], [facility] 5 14:35:28 Vasomotor rhinitis 3411535 Active 2024 CARMEN Herrera MD [address] [place] [address], [place], [phone], [facility] - [facility] 5 14:40:42 Problem Notes None recorded. Procedures Surgical History Date Name Laterality Status Provider Name and Address Organization Details Recorded Time 09/08/2024 FFL_RE completed CARMEN RIDLEY MD [address] [place] [address], [place], [phone], [facility] - [facility] 09/08/2024 14:36:13 Imaging Results None recorded. [...] Not Available No t Available CeQur Simplicity Line Maintenance DIRECTED FOR USE WITH CEQUR INSULIN PATCH active Not Available Not Available No t Available insulin glargine-yf gn (U-100) 100 unit/mL (3 mL) subcutaneou s pen INJECT 26 UNITS SUBCUTANE OUSLY DAILY 09/08 completed Not Available Not Available Not Available FreeStyle Lida 3 [place] USE DIRECTED active Not Available Not Available No t Available FreeStyle Lida 3 Plus Sensor device APPLY DIRECTED EVERY 15 DAYS active Not Available Not Available No t Available Vitals Date Recorded Body height Body mass index (BMI) Body weight Provider Name and Address Organization Details Last Updated DateTime 09/08/2024 167.64 cm 37.6 kg/m2 191609.02 g Gloria Mehta [place] - [facility] 09/08/2024 14:31:30 Social History None recorded. [...] SNOMED-CT Code Diagnosis ICD10 Code Diagnosis Note [id number] CARMEN RIDLEY MD [facility] [address] [phone] 09/08/2024 13:59:36 09/08/2024 14:43:43 Oropharyngeal dysphagia [id number] R13.12 He likely has dysphagia related to his stroke. He has not had any recent pneumonia and seems to be swallowing well although he does clear his throat often. I asked them to let me know if he develops any pneumonia. He has been treated for acid reflux and takes a PPI daily. I recommend he continue this. Nasal congestion 1410550 0 R09.81 Likely due to vasomotor rhinitis I will send a prescripti on for juliann [place]irmingham Vasomotor rhinitis 01656 03 J30.0 I will send a prescripti on for juliann birmingham Health Concerns Section Related Observation LastModified by Organization Detai ls LastModified Time None Recorded Concern Status LastModified by Organization Details LastModified Time None Recorded Advance Directives Directive None Recorded Payers Encounter Date Sequence Insurance Name Policy Number Policy Saleem Covered Member ID Saleem Member ID Guarantor Name 09/08/2024 1 [facility] - HEALTH NET PLAN (MEDICAID HMO) XAVIER Howard Chino [id number] Howard Chino Notes Date Note Type Note [...] 40mg of omeprazole BID. CARMEN RIDLEY MD [address] [place] [address], [place], [phone], [place] - [facility] 09/08/2024 14:44:26
== END 2024-10-11 15:06 | disposition home or self-care (01) ==
LOC: HO.HMCH 13:53
PROVIDERS: PCP Internal Medicine
DX: I63.12 Cerebral infarction due to embolism of basilar artery (principal); N18.6 End stage renal disease; E11.65 Type 2 diabetes mellitus with hyperglycemia; Z79.4 Long term (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 of insulin; H35.9 Unspecified retinal disorder; R53.1 Weakness; R26.89 Other abnormalities of gait and mobility

== ENCOUNTER → 2024-10-11 13:52 | Outpatient (BNVA) | payer MEDICARE, MEDICAID, SELFPAY | PROVIDERS: PCP Internal Medicine | DX: I63.12 Cerebral infarction due to embolism of basilar artery (principal); N18.6 End stage renal disease; E11.65 Type 2 diabetes mellitus with hyperglycemia; Z79.4 Long term (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 of insulin; H35.9 Unspecified retinal disorder; R53.1 Weakness; R26.89 Other abnormalities of gait and mobility | CPT/HCPCS: 99212 ==

== ENCOUNTER → 2024-10-14 | Outpatient (BNV) | payer MEDICARE, MEDICAID, SELFPAY | PROVIDERS: PCP Internal Medicine; Visit Provider Internal Medicine Hypertension Specialist | DX: N18.6 End stage renal disease (principal) | CPT/HCPCS: 90962 ==

== ENCOUNTER 2024-10-26 13:44 | Outpatient (AMB) | payer MEDICARE, MEDICAID, SELFPAY ==
[2024-10-26 13:50] VITALS: BP 102/50; PULSE 92; O2SAT 96; BMI 37.7
--- NOTE | 2024-10-26 13:50 | HO.NEPHOV_ITS ---
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 Required: No Accompanied by: Family/Other Allergies No Known Allergies Allergy (Verified 10/26/24 13:53) Medication List - Last Reconciled 10/26/24 by Stone Ulloa MD atorvastatin 80 mg PO DAILY 90 days [Bed pads As directed] blood sugar diagnostic (FreeStyle Lite Strips) As directed tid blood-glucose meter (FreeStyle Lite Meter kit) As directed tid blood-glucose sensor (FreeStyle Lida 3 Plus Sensor device) As directed every 15 days blood-glucose,hr representative,cont (FreeStyle Lida 3 [place]) As directed bolus insulin pump, 200 unit (CeQur Simplicity) As directed every 4 days [Commode As directed] cyclopentolate 0.5% 1 drp ophthalmic (eye) TID Dex4 Glucose (dextrose) 15 grams PO .every 15 minutes PRN NS dextrose 40% (Glucose Gel) 15 grams PO Q15M PRN diabetic supplies, miscellan. (CeQur Simplicity Psychosocial Rehabilitation Counselor) As directed for use with cequr insulin patch dorzolamide-timolol 22.3-6.8 mg/mL 1 drp ophthalmic-Right BID ergocalciferol (vitamin D2) 1,250 mcg PO QWEEK flash glucose sensor (FreeStyle Lida 14 Day Sensor kit) USE DIRECTED EVERY 2 WEEKS FreeStyle Precision Fred Strips (blood sugar diagnostic) once daily NS furosemide 40 mg PO DAILY hydralazine 100 mg PO TID 90 days insulin degludec (Tresiba FlexTouch U-200 insulin) 32 units (0.16 mL) subcut DAILY 90 days insulin lispro subcut insulin lispro 80 -150 5 units on cequr 3 clicks 151-200 6 units 3 clicks 201-250 7-8 units 4 clicks 251-300 9-10 units 5 clicks Over 300 12 units 6 clicks Do not take with breakfast 30 days lactulose 20 grams (30 mL) PO BID lancets (FreeStyle Lancets) 3 times a day prn to confirm glucose sensor losartan 50 mg PO DAILY mirtazapine 30 mg PO DAILY omeprazole 40 mg PO BID 90 days oxycodone 5 mg PO BID-TID PRN 28 days peg 3350-electrolytes 236-22.74-6.74 -5.86 gram (Golytely) 240 mL PO Q10M pen needle, diabetic (BD Ultra-Fine Odette Pen Needle) 1 ea subcut QID prednisolone acetate 1% 1 drp ophthalmic (eye) TID sennosides-docusate sodium 8.6-50 mg (Senexon-S) 1 tab PO BEDTIME PRN Shower Chair As directed walker As directed [facility] Medical History Essential hypertension 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 Metabolic acidosis Right foot ulcer Anxiety History of foot ulcer Obesity (BMI 30-39.9) Depression Rotator cuff arthropathy of left shoulder Vitamin D deficiency Allergic rhinitis Anemia Pure hypercholesterolemia Benign essential hypertension Diabetic polyneuropathy Type 2 diabetes mellitus with diabetic chronic kidney disease Erectile dysfunction Type 2 diabetes mellitus with hyperglycemia, with long-term current use of insulin Type 2 diabetes mellitus with diabetic polyneuropathy Type 2 diabetes mellitus with chronic kidney disease 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 LDL goal <70 Surgical History History of nasal surgery Family History Father Lung cancer Mother Hypertension Coronary artery disease CVD (cardiovascular disease) TIA (transient ischemic attack) Sister Diabetes Maternal Uncle Diabetes Other Mental health problem Social History Household Members: Family Housing: House Do you presently have visiting nurse or other home services: Yes Alcohol intake: current Alcohol intake frequency: holidays/special occasions only Comment: sister in room Patient Tobacco Use Status: Never used Tobacco e-Cigarette/Vaping Use: Never Used Second Hand Smoke Exposure: Yes service: No Current occupational status: unemployed Cognitive needs: Yes (wheelchair, walker) Hearing needs: No Vision needs: No Physical Exam Vital Signs: Last Vital Signs Pulse 92 10/26/24 13:50 BP 102/50 L 10/26/24 13:50 Pulse Ox 96 10/26/24 13:50 Oxygen Delivery Method Room Air 10/26/24 13:50 BMI result Body Mass Index 37.7 Results Reviewed Nephrology Results: No Data to Display Assessment & Plan Assessment & Plan (1) ESRD (end stage renal disease): Code(s): N18.6 - End stage renal disease Category: Medical Plan see dialysis EMR Medications: New metolazone 5 mg PO Q OTHER DAY 30 tabs 0RF 7 days Changed From furosemide 40 mg PO DAILY 90 tabs 0RF To furosemide 80 mg PO DAILY 90 tabs 1RF Coding Level of Care Code Global (62755) Diagnoses ESRD (end stage renal disease) N18.6
--- OUTSIDE RECORDS SUMMARY | 2024-10-26 14:53 | XMS_ITS | Data Portability ---
Author Organization [place] - [facility], Allergy Address [address] [place] [id number] Care Team Providers Care Application Software Developer Name Role Phone MALINDA ROMERO Primary Care Provider Assessment No assessment recorded. Plan of Treatment Reminders Order Date Submit Date Provider Last Modified By Organization Details Last Modified Time Details Appointments None recorded. Lab None recorded. Referral None recorded. Procedures None recorded. Surgeries None recorded. Imaging None recorded. Medication Orders ipratropium bromide 21 mcg (0.03 %) nasal spray [address] [facility]armacy #[id number], [address] [place], [address], 5 14:41:58 Patient TargetsNo targets recorded. Patient InstructionsNo instructions recorded. Reason for Referral None Reported. Problems Name Problem SNOMED Code Status Onset Date Resolution Date Notes Provider Name and Address Organization Details Recorded Time Oropharyngeal dysphagia 58518559 Active 2024 CARMEN Herrera MD [address] [place] [address], [place], [phone], [facility] - [facility] 5 14:35:21 Nasal congestion 65708936 Active 2024 CARMEN Herrera MD [address] [place] [address], [place], [phone], [facility] 5 14:35:28 Vasomotor rhinitis 3460862 Active 2024 CARMEN Herrera MD [address] [place] [address], [place], [phone], [facility] - [facility] 5 14:40:42 Problem Notes None recorded. Procedures Surgical History Date Name Laterality Status Provider Name and Address Organization Details Recorded Time 09/08/2024 FFL_RE completed CARMEN RIDLEY MD [address] [place] [address], [place], [phone], [facility] - [facility] 09/08/2024 14:36:13 Imaging Results None recorded. [...] Not Available No t Available CeQur Simplicity Lung Gun Operator DIRECTED FOR USE WITH CEQUR INSULIN PATCH active Not Available Not Available No t Available insulin glargine-yf gn (U-100) 100 unit/mL (3 mL) subcutaneou s pen INJECT 26 UNITS SUBCUTANE OUSLY DAILY 09/08 completed Not Available Not Available Not Available FreeStyle Lida 3 [place] USE DIRECTED active Not Available Not Available No t Available FreeStyle Lida 3 Plus Sensor device APPLY DIRECTED EVERY 15 DAYS active Not Available Not Available No t Available Vitals Date Recorded Body height Body mass index (BMI) Body weight Provider Name and Address Organization Details Last Updated DateTime 09/08/2024 167.64 cm 37.6 kg/m2 679326.02 g Gloria Mehta [place] - [facility] 09/08/2024 14:31:30 Social History None recorded. [...] SNOMED-CT Code Diagnosis ICD10 Code Diagnosis Note [id number] CARMEN RIDLEY MD [facility] [address] [phone] 09/08/2024 13:59:36 09/08/2024 14:43:43 Oropharyngeal dysphagia 60722617 R13.12 He likely has dysphagia related to his stroke. He has not had any recent pneumonia and seems to be swallowing well although he does clear his throat often. I asked them to let me know if he develops any pneumonia. He has been treated for acid reflux and takes a PPI daily. I recommend he continue this. Nasal congestion 4789002 0 R09.81 Likely due to vasomotor rhinitis I will send a prescripti on for juliann birmingham Vasomotor rhinitis 88339 03 J30.0 I will send a prescripti on for juliann birmingham Health Concerns Section Related Observation LastModified by Organization Detai ls LastModified Time None Recorded Concern Status LastModified by Organization Details LastModified Time None Recorded Advance Directives Directive None Recorded Payers Insurance Date Sequence Insurance Name Policy Number Policy Saleem Covered Member ID Saleem Member ID Guarantor Name 09/08/2024 1 [facility] - HEALTH NET PLAN (MEDICAID HMO) XAVIER Howard Chino [id number] Howard Chino Notes Date Note Type Note [...] 40mg of omeprazole BID. CARMEN RIDLEY MD [address] [place] [address], [place], [phone], [place] - [facility] 09/08/2024 14:44:26
== END 2024-10-26 14:11 | disposition home or self-care (01) ==
LOC: HO.HKA 13:44
PROVIDERS: PCP Internal Medicine; Visit Provider Internal Medicine Hypertension Specialist
DX: N18.6 End stage renal disease (principal)
CPT/HCPCS: 99024

== ENCOUNTER → 2024-10-26 13:44 | Outpatient (BNVA) | payer MEDICARE, MEDICAID, SELFPAY | PROVIDERS: PCP Internal Medicine; Visit Provider Internal Medicine Hypertension Specialist | DX: I10 Essential (primary) hypertension (principal); N18.6 End stage renal disease | CPT/HCPCS: 99212 ==

== ENCOUNTER 2024-11-03 13:50 | Outpatient (AMB) | payer MEDICARE, MEDICAID, SELFPAY ==
--- NOTE | 2024-11-03 14:16 | A.OFFPC_ITS ---
Vital Signs 11/03/24 14:18 Height 5 ft 7 in Weight 246 lb 7.629 oz BMI 38.6 BP 110/60 Blood Pressure Location Rt brachial Position Sitting Pulse 80 Pulse Source Pulse Oximeter Temp 97.1 F Temp Source Temporal Artery Scan Pulse Oximetry (%) 96 Oxygen Delivery Method Room Air Intake Visit Reasons: [facility] surgery on 11/16 Intake Note: Patient is here for a Pre-op for Rectana right eye scheduled with [facility] on 11/16/24. 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 Joiner Required: No Roll Inspector: Present Accompanied by: Sister Allergies No Known Allergies Allergy (Verified 11/03/24 14:44) Medication List - Last Reconciled 11/03/24 by LATRICE Regan atorvastatin 80 mg PO DAILY 90 days [Bed pads As directed] blood sugar diagnostic (FreeStyle Lite Strips) As directed tid blood-glucose meter (FreeStyle Lite Meter kit) As directed tid blood-glucose sensor (FreeStyle Lida 3 Plus Sensor device) As directed every 15 days blood-glucose,crop adjuster,cont (FreeStyle Lida [address]) As directed bolus insulin pump, 200 unit (CeQur Simplicity) As directed every 4 days brimonidine 0.1% 1 drp ophthalmic-Right TID [Commode As directed] cyclopentolate 0.5% 1 drp ophthalmic (eye) TID cyclopentolate 1% 1 drp ophthalmic-Right BID Dex4 Glucose (dextrose) 15 grams PO .every 15 minutes PRN NS dextrose 40% (Glucose Gel) 15 grams PO Q15M PRN diabetic supplies, miscellan. (CeQur Simplicity Assessment Rn) As directed for use with cequr insulin patch dorzolamide-timolol 22.3-6.8 mg/mL 1 drp ophthalmic-Right BID duloxetine 20 mg PO DAILY ergocalciferol (vitamin D2) 1,250 mcg PO QWEEK flash glucose sensor (FreeStyle Lida 14 Day Sensor kit) USE DIRECTED EVERY 2 WEEKS FreeStyle Precision Fred Strips (blood sugar diagnostic) once daily NS furosemide 80 mg PO DAILY hydralazine 100 mg PO TID 90 days insulin degludec (Tresiba FlexTouch U-200 insulin) 32 units (0.16 mL) subcut DAILY 90 days insulin lispro subcut insulin lispro 80 -150 5 units on cequr 3 clicks 151-200 6 units 3 clicks 201-250 7-8 units 4 clicks 251-300 9-10 units 5 clicks Over 300 12 units 6 clicks Do not take with breakfast 30 days lactulose 20 grams (30 mL) PO BID lancets (FreeStyle Lancets) 3 times a day prn to confirm glucose sensor latanoprost 0.005% drps ophthalmic (eye) losartan 50 mg PO DAILY metolazone 5 mg PO Q OTHER DAY 7 days mirtazapine 30 mg PO DAILY omeprazole 40 mg PO BID 90 days oxycodone 5 mg PO BID-TID PRN 28 days peg 3350-electrolytes 236-22.74-6.74 -5.86 gram (Golytely) 240 mL PO Q10M pen needle, diabetic (BD Ultra-Fine Odette Pen Needle) 1 ea subcut QID prednisolone acetate 1% 1 drp ophthalmic (eye) TID sennosides-docusate sodium 8.6-50 mg (Senexon-S) 1 tab PO BEDTIME PRN Shower Chair As directed walker As directed Tobacco use date assessed: 11/03/24 Dental Screening Dental Screen Date: 10/11/24 HPI [facility] on 11/16 HPI Details The patient is a 54-year-old male, patient of Dr. Garcia, last seen in office on 10/11/2024 The patient is presenting with concerns about his upcoming eye surgery and associated preoperative management. His recent lab results indicate significantly elevated ferritin levels that has been trending down, which may need adjustment post-surgery. Additionally, there are concerns regarding his insulin regulation and elevated blood sugar levels due to the recent use of a higher dextrose solution for dialysis. The patient uses a manually activated patch for pharmaceutical insulin management alongside a long-acting insulin pen, and has reported having more control for his blood sugar. The eye surgery will take place in [place], [place], with scheduling placing potential delays in other locations. Future interventions on the left eye with injections are also part of the treatment plan, mainly targeting the upcoming ophthalmologic procedure on the right eye. Surgeon forced/location: Dr. Sanford at [facility], [place], [place]; however, the procedure will be taking place at the [facility]. Anesthesia: Mac. Surgery: Right eye retinal surgery. Diabetic retinopathy that has been treated with injection in the past. Patient denies any post surgery hypothermia or clotting disorder and isn't on any blood thinners. 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 Patient denies chest pain, shortness of breath, heart palpitation and dizziness [facility] Medical History Essential hypertension 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 Metabolic acidosis Right foot ulcer Anxiety History of foot ulcer Obesity (BMI 30-39.9) Depression Rotator cuff arthropathy of left shoulder Vitamin D deficiency Allergic rhinitis Anemia Pure hypercholesterolemia Benign essential hypertension Diabetic polyneuropathy Type 2 diabetes mellitus with diabetic chronic kidney disease Erectile dysfunction Type 2 diabetes mellitus with hyperglycemia, with long-term current use of insulin Type 2 diabetes mellitus with diabetic polyneuropathy Type 2 diabetes mellitus with chronic kidney disease 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 LDL goal <70 Surgical History History of nasal surgery Family History Father Lung cancer Mother Hypertension Coronary artery disease CVD (cardiovascular disease) TIA (transient ischemic attack) Sister Diabetes Maternal Uncle Diabetes Other Mental health problem Social History Household Members: Family Housing: House Do you presently have visiting nurse or other home services: Yes Alcohol intake: current Alcohol intake frequency: holidays/special occasions only Comment: sister in room Patient Tobacco Use Status: Never used Tobacco e-Cigarette/Vaping Use: Never Used Second Hand Smoke Exposure: Yes service: No Current occupational status: unemployed Cognitive needs: Yes (wheelchair, walker) Hearing needs: No Vision needs: No Questionnaire PHQ-9 Over the last 2 weeks, how often have you been bothered by any of the following problems? 1. Little interest or pleasure in doing things: not at all 2. Feeling down, depressed, or hopeless: not at all 3. Trouble falling or staying asleep, or sleeping too much: not at all 4. Feeling tired or having little energy: not at all 5. Poor appetite or overeating: not at all 6. Feeling bad about yourself - or that you are a failure or have let yourself or your family down: not at all 7. Trouble concentrating on things, such as reading the newspaper or watching television: not at all 8. Moving or speaking so slowly that other people could have noticed. Or the opposite - being so fidgety or restless that you have been moving around a lot more than usual: not at all 9. Thoughts that you would be better off or of hurting yourself in some way: not at all Total score: 0 Depression Screening Interpretation: Negative Depression Screening Done: Yes Source: Developed by Drs. Zay Babb, Genesis Aiken, Tony Garcia and colleagues, with an educational phoenix from [employer]. Thrive Questionnaire Date Thrive assessed: 11/03/24 I am a: Patient Within the past 12 months, did the food you bought not last and you didn't have the money to get more?: Never true Within the past 12 months, did you worry whether your food would run out before you got money to buy more?: Never true Do you have trouble paying for medicines?: No Do you have trouble getting transportation to medical appointments?: No Do you have trouble paying your heating and electricity bill?: No Do you have trouble taking care of your child, family member or friend?: No Do you have trouble with day-to-day activities such as bathing, preparing meals, shopping, managing finances, etc.?: No Are you currently unemployed and looking for a job?: No Are you interested in more education?: No Please select the resources that you would like help with: None Currently or been in a relationship where the following occur: No concerns reported THRIVE Score: 0 AUDIT C Alcohol Use Questionnaire (AUDIT-C) 1. How often do you have a drink containing alcohol?: Monthly or less 2. How many drinks containing alcohol do you have on a typical day when you are drinking?: 1 or 2 Total Score: 1 ANAHI-7 AMB Questionnaire ANAHI-7 Date ANAHI - 7 assessed: 11/03/24 Feeling nervous, anxious, or on edge: 0 = Not at all Not being able to stop or control worryin = Not at all Worrying too much about different things: 0 = Not at all Trouble relaxin = Not at all Being so restless that it is hard to sit still: 0 = Not at all Becoming easily annoyed or irritable: 0 = Not at all Feeling afraid as if something awful might happen: 0 = Not at all Total ANAHI-7 score (0-4 normal; 5-9 mild; 10-14 moderate; 15-21 severe): 0 Source: Developed by Drs. Zay Babb, Genesis Aiken, Tony Garcia and colleagues, with an educational phoenix from [employer]. Review of Systems Const Denies headache(s) and Reports weakness (Left-sided weakness) Eyes Reports blurry vision ENT Denies vertigo, Denies dizziness, Denies headache(s) and Denies sore throat Card Denies chest pain, Reports leg edema (Improves with compression stockings), Denies lightheadedness and Reports dyspnea on exertion (Mild-improving) Resp Denies cough, Denies hemoptysis, Reports dyspnea on exertion (Mild-improving) and Denies wheezing GI Denies abdominal pain, Denies melena, Denies constipation, Denies diarrhea, Denies vomiting and Reports other (Dialysis catheter in place) Details: End-stage renal does not pee much. Home dialysis Reports urinary urgency Musc Denies arthralgias, Denies joint swelling, Reports muscle weakness (Left-sided weakness), Denies numbness, Denies tingling and Reports other (Bilateral leg pain-neuropathy) Neuro Denies Abnormal speech present, Denies behavioral changes, Denies vertigo, Denies dizziness, Denies headache(s), Denies memory loss, Denies numbness, Denies tingling and Reports weakness (Left-sided weakness) Psych Denies anxiety, Denies behavioral changes, Denies depression, Denies memory loss and Denies panic attacks Ashu/Lymph Denies easy bleeding and Denies easy bruising Aller/Immun Denies wheezing Physical exam (Primary Care) Vital Signs: Last Vital Signs Temp 97.1 F 11/03/24 14:18 Pulse 80 11/03/24 14:18 BP 110/60 11/03/24 14:18 Pulse Ox 96 11/03/24 14:18 Oxygen Delivery Method Room Air 11/03/24 14:18 BMI result Body Mass Index 38.6 Tobacco/Smoking Status: Tobacco use Status Tobacco use date assessed 11/03/24 11/03/24 14:29 Patient Tobacco Use Status Never used Tobacco 11/03/24 14:16 e-Cigarette/Vaping Use Never Used 11/03/24 14:16 PHQ-9: PHQ-9 Score PHQ-9: Total score 0 11/03/24 14:55 Depression Screening Interpretation: Negative Thrive Assessment: Date of Thrive Assessment Date Thrive assessed 11/03/24 11/03/24 14:29 Currently or been in a relationship where the following occur: No concerns reported Const General: healthy appearing, no acute distress, alert and awake Nutritional Appearance: well nourished Orientation/consciousness: oriented to person, oriented to place and oriented to time HENMT Ears: external ears normal General nose exam: Normal external nose present Eyes Conjunctivae: conjunctivae normal Sclerae: sclerae normal Pupils: Equal, round and reactive pupils present Neck Neck: Yes no lymphadenopathy and Yes no JVD Thyroid: Thyroid normal Carotids: no bruits Resp Effort & Inspection: normal respiratory effort and not tachypneic Auscultation: no crackles, no rales, no rhonchi and no wheezes Cardio Rate: regular rate Rhythm: regular rhythm Heart sounds: no murmurs and normal S1 and S2 Peripheral pulses: Peripheral pulses 2+ throughout GI Inspection: Yes obesity and Yes other (Dialysis catheter in place) Palpation (GI): Soft to palpation, nontender, no hepatomegaly and no splenomegaly Auscultation: normal bowel sounds General: Yes no CVA tenderness Back/Spine/Pelvis Back: no CVA tenderness Thoracic/Lumbar Spine: No thoracic spinal tenderness and No lumbar spinal tenderness Skin General skin exam: dry skin and other (Small pressure area the left hip) Neuro General: oriented to person, oriented to place and oriented to time Cranial nerves: Yes Equal, round and reactive pupils present Speech: No Abnormal speech present Gait exam (Neuro): Antalgic gait present and Assisted gait required Gait assisted method: walker Motor exam (neuro): no tremor noted Extrem Right upper extremity: full ROM Left upper extremity: full ROM (Left arm weakness ) Right lower extremity: full ROM, edema Details: 1+, lower leg and ankle Left lower extremity: full ROM (Left leg weakness), edema Details: 1+, lower leg and ankle Psych Mental Status: mental status grossly normal Speech and movement: Normal speech and movement present Affect: normal affect Attitude: cooperative Thought process: Normal thought process present Results Reviewed Results Reviewed: WBC 3.8 , H&H 11.3/33.9, platelets 208, sodium 146, potassium 4.8, chloride 108, bicarb 21, BUN 64, creatinine 6.93, A1c 7.2% Coding Level of Care Code Est Pt Level 4 (70497) Diagnoses Preoperative clearance Z01.818 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 ESRD (end stage renal disease) N18.6 Type 2 diabetes mellitus with hypoglycemia without coma, with long-term current use of insulin E11.649; Z79.4 Diabetes mellitus fdc insulin use: with fdc use Diabetes mellitus complication status: with hypoglycemia Diabetes mellitus complication detail: without coma Essential hypertension I10 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 Reviewed with the patient that no surgery is completely free of risk and that this examination is to assist the surgeon in reviewing informed consent. (2) Retina degeneration: Code(s): H35.9 - Unspecified retinal disorder Category: Medical Plan: Plans for retinal surgery (3) ESRD (end stage renal disease): Code(s): N18.6 - End stage renal disease Category: Medical Plan: Home dialysis. 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 The patient last A1c was 7.2%. Continue Tresiba FlexTouch U 200 insulin 32 units subQ daily, and lispro per sliding scale. Continue close blood sugar monitoring. (5) Essential hypertension: Code(s): I10 - Essential (primary) hypertension Category: Medical Plan: Blood pressure 110/60 in office Reinforced low-salt diet Continue hydralazine 100 mg t.i.d., losartan 50 mg daily (6) 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: Code(s): I63.12 - Cerebral infarction due to embolism of basilar artery Category: Medical Plan: Continue atorvastatin 80 mg daily. The patient is not on any blood thinners (7) Pressure injury of ankle, unstageable: Code(s): L89.500 - Pressure ulcer of unspecified ankle, unstageable Category: Medical Qualifiers: Laterality: left Qualified Code(s): L89.520 - Pressure ulcer of left ankle, unstageable Plan: Left hip small pressure area, dark purple appearing area, located in the crease of belt line. Encouraged to offload pressure by wearing loose clothing.
[2024-11-03 14:18] VITALS: BP 110/60; PULSE 80; TEMP 36.2; O2SAT 96; BMI 38.6
--- OUTSIDE RECORDS SUMMARY | 2024-11-03 14:24 | XMS_ITS | Data Portability ---
Author Organization [place] - [facility], Allergy Address [address] [place] [address] Care Team Providers Care Spanish Teacher Name Role Phone MALINDA ROMERO Primary Care Provider Assessment No assessment recorded. Plan of Treatment Reminders Order Date Submit Date Provider Last Modified By Organization Details Last Modified Time Details Appointments None recorded. Lab None recorded. Referral None recorded. Procedures None recorded. Surgeries None recorded. Imaging None recorded. Medication Orders ipratropium bromide 21 mcg (0.03 %) nasal spray 2024 025 [facility]/Pharmacy #1972, [address] [place], [address], 5 14:41:58 Patient TargetsNo targets recorded. Patient InstructionsNo instructions recorded. Reason for Referral None Reported. Problems Name Problem SNOMED Code Status Onset Date Resolution Date Notes Provider Name and Address Organization Details Recorded Time Oropharyngeal dysphagia 23996196 Active 2024 CARMEN Herrera MD [address] [place] [address], [place], [phone], [facility] - [facility] 5 14:35:21 Nasal congestion 75150560 Active 2024 CARMEN Herrera MD [address] [place] [address], [place], [address], [facility] 5 14:35:28 Vasomotor rhinitis 8061625 Active 2024 CARMEN Herrera MD [address] [place] [address], [place], [phone], [facility] - [facility] 5 14:40:42 Problem Notes None recorded. Procedures Surgical History Date Name Laterality Status Provider Name and Address Organization Details Recorded Time 09/08/2024 FFL_RE completed CARMEN RIDLEY MD [address] [place] [address], [place], [address], [facility] - [facility] 09/08/2024 14:36:13 Imaging Results None recorded. [...] Not Available No t Available CeQur Simplicity Broth Setter DIRECTED FOR USE WITH CEQUR INSULIN PATCH active Not Available Not Available No t Available insulin glargine-yf gn (U-100) 100 unit/mL (3 mL) subcutaneou s pen INJECT 26 UNITS SUBCUTANE OUSLY DAILY 09/08 completed Not Available Not Available Not Available FreeStyle Lida 3 [place] USE DIRECTED active Not Available Not Available No t Available FreeStyle Lida 3 Plus Sensor device APPLY DIRECTED EVERY 15 DAYS active Not Available Not Available No t Available Vitals Date Recorded Body height Body mass index (BMI) Body weight Provider Name and Address Organization Details Last Updated DateTime 09/08/2024 167.64 cm 37.6 kg/m2 379730.02 g Gloria Mehta [place] - [facility] 09/08/2024 14:31:30 Social History None recorded. Functional Status None recorded. Mental Status None recorded. Family History Nothing Reported. Medical History Condition Response Diabetes Y Anemia Y Anxiety Y High Cholesterol Y GERD/Reflux Y Stroke Y Hypertension Y Depression Y Kidney Disease Y Past Encounters Encounter ID Performer Location Encounter Start Date Encounter Closed Date Diagnosis/Indication Diagnosis SNOMED-CT Code Diagnosis ICD10 Code Diagnosis Note [id number] CARMEN RIDLEY MD [facility] [address] [address] 09/08/2024 13:59:36 09/08/2024 14:43:43 Oropharyngeal dysphagia 46534593 R13.12 He likely has dysphagia related to his stroke. He has not had any recent pneumonia and seems to be swallowing well although he does clear his throat often. I asked them to let me know if he develops any pneumonia. He has been treated for acid reflux and takes a PPI daily. I recommend he continue this. Nasal congestion 3847738 0 R09.81 Likely due to vasomotor rhinitis I will send a prescripti on for juliann birmingham Vasomotor rhinitis 98048 03 J30.0 I will send a prescripti on for juliann birmingham Health Concerns Section Related Observation LastModified by Organization Detai ls LastModified Time None Recorded Concern Status LastModified by Organization Details LastModified Time None Recorded Advance Directives Directive None Recorded Payers Insurance Date Sequence Insurance Name Policy Number Policy Saleem Covered Member ID Saleem Member ID Guarantor Name 09/08/[address] [facility] - HEALTH NET PLAN (MEDICAID HMO) XAVIER Howard Chino [id number] Howard Chino Notes Date Note Type Note [...] 40mg of omeprazole BID. CARMEN RIDLEY MD [address] [place] [address], [place], [address], [place] - [facility] 09/08/2024 14:44:26
== END 2024-11-03 15:51 | disposition home or self-care (01) ==
LOC: HO.HMCH 13:51
PROVIDERS: PCP Internal Medicine
DX: I12.0 Hypertensive chronic kidney disease with stage 5 chronic kidney disease or end stage renal disease (principal); N18.6 End stage renal disease; E11.649 Type 2 diabetes mellitus with hypoglycemia without coma; Z79.4 Long term (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 of insulin; L89.520 Pressure ulcer of left ankle, unstageable; I63.12 Cerebral infarction due to embolism of basilar artery; Z01.818 Encounter for other preprocedural examination; H35.9 Unspecified retinal disorder

== ENCOUNTER → 2024-11-03 13:50 | Outpatient (BNVA) | payer MEDICARE, MEDICAID, SELFPAY | PROVIDERS: PCP Internal Medicine | DX: Z01.818 Encounter for other preprocedural examination (principal); H53.9 Unspecified visual disturbance; I12.0 Hypertensive chronic kidney disease with stage 5 chronic kidney disease or end stage renal disease; E11.22 Type 2 diabetes mellitus with diabetic chronic kidney disease; N18.6 End stage renal disease; E11.649 Type 2 diabetes mellitus with hypoglycemia without coma; I63.12 Cerebral infarction due to embolism of basilar artery; L89.520 Pressure ulcer of left ankle, unstageable; Z79.4 Long term (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 of insulin | CPT/HCPCS: 99212 ==

== ENCOUNTER 2024-11-25 13:33 | Outpatient (AMB) | payer MEDICARE, MEDICAID, SELFPAY ==
--- NOTE | 2024-11-25 13:36 | HO.NEPHOV_ITS ---
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 Metabolic acidosis Right foot ulcer Anxiety History of foot ulcer Obesity (BMI 30-39.9) Depression Rotator cuff arthropathy of left shoulder Vitamin D deficiency Allergic rhinitis Anemia Pure hypercholesterolemia Benign essential hypertension Diabetic polyneuropathy Type 2 diabetes mellitus with diabetic chronic kidney disease Erectile dysfunction Type 2 diabetes mellitus with hyperglycemia, with long-term current use of insulin Type 2 diabetes mellitus with diabetic polyneuropathy Type 2 diabetes mellitus with chronic kidney disease 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 LDL goal <70 Surgical History (Updated 11/25/24 @ 13:38 by UGO Ibanez) History of eye surgery (~11/2024) History of nasal surgery Family History Father Lung cancer Mother Hypertension Coronary artery disease CVD (cardiovascular disease) TIA (transient ischemic attack) Sister Diabetes Maternal Uncle Diabetes Other Mental health problem Social History Household Members: Family Housing: House Do you presently have visiting nurse or other home services: Yes Alcohol intake: current Alcohol intake frequency: holidays/special occasions only Comment: sister in room Patient Tobacco Use Status: Never used Tobacco e-Cigarette/Vaping Use: Never Used Second Hand Smoke Exposure: Yes service: No Current occupational status: unemployed Cognitive needs: Yes (wheelchair, walker) Hearing needs: No Vision needs: No Physical Exam Vital Signs: Last Vital Signs Pulse 88 11/25/24 13:37 BP 140/60 H 11/25/24 13:37 Pulse Ox 97 11/25/24 13:37 Oxygen Delivery Method Room Air 11/25/24 13:37 BMI result Body Mass Index 38.8 Results Reviewed Nephrology Results: No Data to Display Assessment & Plan Assessment & Plan (1) ESRD (end stage renal disease): Code(s): N18.6 - End stage renal disease Category: Medical Plan 54-year-old male with ESRD presenting with ongoing challenges in managing dialysis, blood sugar control, and hypertension. He has encountered recent increases in blood pressure measurements, including a notable 172/89, influenced partly by the timing concerning dialysis. Blood sugar levels have demonstrated significant variability, from hypoglycemia at 58 mg/dL to hyperglycemia exceeding 350 mg/dL, with efforts to stabilize them utilizing fast-acting insulin. Recent procedures include right eye surgery to address persistent bleeding, while there is an upcoming laser procedure planned for the left eye. With peritoneal dialysis, the patient continues to manage his weight and fluid retention, recording a dry weight of 110.5 kilograms. Noted readings show adequate peritoneal dialysis adequacy, with missed labs due to scheduling conflicts post-eye surgery. During the visit, we reviewed the current problems of hypertension with blood pressure elevations in relation to dialysis timing. The patient is managing diabetes mellitus with fluctuating glucose levels requiring attention to varied device readings and potential insulin titration. Discussion involved eye surgery follow-up for bleeding and upcoming left eye laser intervention. Importance was stressed on timely completion of missed laboratory evaluations to gauge dialysis adequacy, understanding the current acceptable level of 1.69. Patient concern regarding device beeping and fluid movement during dialysis was addressed, with advice on monitoring drain efficacy and contacting us should symptoms persist or worsen. Coding Level of Care Code Global (03042) Diagnoses ESRD (end stage renal disease) N18.6
[2024-11-25 13:37] VITALS: BP 140/60; PULSE 88; O2SAT 97; BMI 38.8
--- OUTSIDE RECORDS SUMMARY | 2024-11-25 15:51 | XMS_ITS | Data Portability ---
Author Organization [place] - [facility], Allergy Address [address] [place] [address] Care Team Providers Care Concrete Analyst Name Role Phone MALINDA ROMERO Primary Care Provider [phone] Assessment No assessment recorded. Plan of Treatment Reminders Order Date Submit Date Provider Last Modified By Organization Details Last Modified Time Details Appointments None recorded. Lab None recorded. Referral None recorded. Procedures None recorded. Surgeries None recorded. Imaging None recorded. Medication Orders ipratropium bromide 21 mcg (0.03 %) nasal spray 2024 025 [facility]/Pharmacy #1972, [address] [place], [address], 5 14:41:58 Patient TargetsNo targets recorded. Patient InstructionsNo instructions recorded. Reason for Referral None Reported. Problems Name Problem SNOMED Code Status Onset Date Resolution Date Notes Provider Name and Address Organization Details Recorded Time Oropharyngeal dysphagia 64791361 Active 2024 CARMEN Herrera MD [address] [place] [address], [place], [address], [facility] - [facility] 5 14:35:21 Nasal congestion 80238868 Active 2024 CARMEN Herrera MD [address] [place] [address], [place], [address], [facility] 5 14:35:28 Vasomotor rhinitis 2053612 Active 2024 CARMEN Herrera MD [address] [place] [address], [place], [address], [facility] - [facility] 5 14:40:42 Problem Notes None recorded. Procedures Surgical History Date Name Laterality Status Provider Name and Address Organization Details Recorded Time 09/08/2024 FFL_RE completed CARMEN RIDLEY MD [address] [place] [address], [place], [address], [facility] - [facility] 09/08/2024 14:36:13 Imaging Results None recorded. [...] Not Available No t Available CeQur Simplicity Sleever DIRECTED FOR USE WITH CEQUR INSULIN PATCH active Not Available Not Available No t Available insulin glargine-yf gn (U-100) 100 unit/mL (3 mL) subcutaneou s pen INJECT 26 UNITS SUBCUTANE OUSLY DAILY 09/08 completed Not Available Not Available Not Available FreeStyle Lida 3 [place] USE DIRECTED active Not Available Not Available No t Available FreeStyle Lida 3 Plus Sensor device APPLY DIRECTED EVERY 15 DAYS active Not Available Not Available No t Available Vitals Date Recorded Body height Body mass index (BMI) Body weight Provider Name and Address Organization Details Last Updated DateTime 09/08/2024 167.64 cm 37.6 kg/m2 494743.02 g Gloria Mehta [place] - [facility] 09/08/2024 14:31:30 Social History None recorded. [...] SNOMED-CT Code Diagnosis ICD10 Code Diagnosis Note [id number] CARMEN RIDLEY MD [facility] [address] [address] 09/08/2024 13:59:36 09/08/2024 14:43:43 Oropharyngeal dysphagia 92360752 R13.12 He likely has dysphagia related to his stroke. He has not had any recent pneumonia and seems to be swallowing well although he does clear his throat often. I asked them to let me know if he develops any pneumonia. He has been treated for acid reflux and takes a PPI daily. I recommend he continue this. Nasal congestion 7508742 0 R09.81 Likely due to vasomotor rhinitis I will send a prescripti on for juliann birmingham Vasomotor rhinitis 30024 03 J30.0 I will send a prescripti on for juliann birmingham Health Concerns Section Related Observation LastModified by Organization Detai ls LastModified Time None Recorded Concern Status LastModified by Organization Details LastModified Time None Recorded Advance Directives Directive None Recorded Payers Insurance Date Sequence Insurance Name Policy Number Policy Saleem Covered Member ID Saleem Member ID Guarantor Name 09/08/2024 1 [facility] - HEALTH NET PLAN (MEDICAID HMO) XAVIER Howard Chino [id number] Howard Chino Notes Date Note Type Note [...] 40mg of omeprazole BID. CARMEN RIDLEY MD [address] [place] [address], [place], [address], [place] - [facility] 09/08/2024 14:44:26
== END 2024-11-25 13:53 | disposition home or self-care (01) ==
LOC: HO.HKA 13:34
PROVIDERS: PCP Internal Medicine; Visit Provider Internal Medicine Hypertension Specialist
DX: N18.6 End stage renal disease (principal)
CPT/HCPCS: 99024

== ENCOUNTER → 2024-11-25 13:33 | Outpatient (BNVA) | payer MEDICARE, MEDICAID, SELFPAY | PROVIDERS: PCP Internal Medicine; Visit Provider Internal Medicine Hypertension Specialist | DX: N18.6 End stage renal disease (principal) | CPT/HCPCS: 99212 ==

== ENCOUNTER 2024-12-08 13:00 | Outpatient (AMB) | payer MEDICARE, MEDICAID, SELFPAY ==
--- NOTE | 2024-12-08 13:02 | MHC.OFFVIS ---
Vital Signs 12/08/24 13:05 Height 5 ft 7 in Weight 252 lb 5.231 oz BMI 39.5 BP 160/90 H Blood Pressure Location Lt brachial Position Sitting Pulse 96 Pulse Source Pulse Oximeter Pulse Oximetry (%) 98 Oxygen Delivery Method Room Air Intake Visit Reasons: T2DM Intake Note: Patient presents today to establish treatment for Type 2 Diabetes Mellitus: Last Diabetic eye exam was on: 09/16/2024, [facility] Last Podiatry exam was on: Does not see a Derrick Hand Most recent HbA1c: 7.0%, 12/08/2024 Random Glucose- 93 mg/dL, Today Pick Up Man Required: No Accompanied by: Sister Allergies No Known Allergies Allergy (Verified 12/08/24 13:02) HPI Comments Details: 54 year old type 2 diabetic with CKD on peritoneal dialysis, retinopathy and neuropathy presents for diabetic follow up Med history: DKA, CVA with residual dysphagia, renal failure. anemia Current medications: Tresiba 32 (increased from 26 units 80 -150 5 units on cequr 3 clicks 151-200 6 units 3 clicks 201-250 7-8 units 4 clicks 251-300 9-10 units 5 clicks Over 300 12 units 6 clicks POC A1C 7.0% from 7.2 from 6.7. GMI 7.9% TGT 42%, 576 high 2% low. Everytime patient has hypoglycemia on CGM the reading is not in hypoglycemic range on fingerstick The [facility] that tresiba, lispro and the cequr are no longer covered. he has enough to last ~1 weeks He is on peritoneal dialysis-his diasylate was just changed and it is requested that he check his fingerstick 4 times daily ROS CONSTITUTIONAL: Denies weight loss, fever and chills. HEENT: Denies changes in vision and hearing. RESPIRATORY: Denies SOB and cough. CV: Denies palpitations and CP GI: Denies abdominal pain, nausea, vomiting and diarrhea. : Denies dysuria and urinary frequency. MSK: Denies new myalgia and joint pain. SKIN: Denies rash and pruritus. NEUROLOGICAL: Denies headache PSYCHIATRIC: Denies recent changes in mood. PHYSICAL EXAM: GENERAL:using walker no acute distress EYES: EOMI. Anicteric. HENT: Moist mucous membranes. No scleral icterus. No cervical lymphadenopathy. LUNGS: Clear to auscultation bilaterally. CARDIOVASCULAR: Regular rate and rhythm. No murmur. No JVD. ABDOMEN: Soft, non-tender +bs EXTREMITIES: No edema. Non-tender. SKIN: No rashes or lesions. Warm. NEUROLOGIC: No new focal neurological deficits. PSYCHIATRIC: Cooperative. 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 Metabolic acidosis Right foot ulcer Anxiety History of foot ulcer Obesity (BMI 30-39.9) Depression Rotator cuff arthropathy of left shoulder Vitamin D deficiency Allergic rhinitis Anemia Pure hypercholesterolemia Benign essential hypertension Diabetic polyneuropathy Type 2 diabetes mellitus with diabetic chronic kidney disease Erectile dysfunction Type 2 diabetes mellitus with hyperglycemia, with long-term current use of insulin Type 2 diabetes mellitus with diabetic polyneuropathy Type 2 diabetes mellitus with chronic kidney disease 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 LDL goal <70 Surgical History History of eye surgery (~11/2024) History of nasal surgery Family History Father Lung cancer Mother Hypertension Coronary artery disease CVD (cardiovascular disease) TIA (transient ischemic attack) Sister Diabetes Maternal Uncle Diabetes Other Mental health problem Social History Household Members: Family Housing: House Do you presently have visiting nurse or other home services: Yes Alcohol intake: current Alcohol intake frequency: holidays/special occasions only Comment: sister in room Patient Tobacco Use Status: Never used Tobacco e-Cigarette/Vaping Use: Never Used Second Hand Smoke Exposure: Yes service: No Current occupational status: unemployed Cognitive needs: Yes (wheelchair, walker) Hearing needs: No Vision needs: No Physical Exam Vital Signs: Last Vital Signs Pulse 96 12/08/24 13:05 BP 160/90 H 12/08/24 13:05 Pulse Ox 98 12/08/24 13:05 Oxygen Delivery Method Room Air 12/08/24 13:05 BMI result Body Mass Index 39.5 Results AMB Hemoglobin A1c AMB Hemoglobin A1c 7.0 % Last Edit by UGO Garcia on 12/08/24 13:20 Results Reviewed Results Reviewed: Laboratory Last Values Glucose (Clinic) 93 mg/dL (60-115) 12/08/24 13:09 Hgb A1c (Clinic) 7.0 % (4.0-6.0) H 12/08/24 13:19 Assessment & Plan Assessment & Plan (1) Type 2 diabetes mellitus with chronic kidney disease: Code(s): E11.22 - Type 2 diabetes mellitus with diabetic chronic kidney disease Category: Medical Qualifiers: 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 It would be unfortunate for patient to have to stop the cequr insulin delivery as this has helped him acheive glycemic control Need to verify formulary coverage for patient but plan now with good control and no hypoglycemia would be to maintain current insuline doses Orders: Orders AMB Hemoglobin A1c Today E11.65 - Type 2 diabetes mellitus with hyperglycemia, Z79.4 - intermodal owner operator truck driver (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 of insulin Coding Level of Care Code Est Pt Level 4 (24810) Diagnoses Type 2 diabetes mellitus with stage 3b chronic kidney disease, with long-term current use of insulin E11.22; N18.32; Z79.4 Diabetes mellitus intermodal owner operator truck driver insulin use: with intermodal owner operator truck driver use Chronic kidney disease stage: stage 3 (moderate) Chronic kidney disease stage 3 subtype: stage 3b (GFR 30-44) Chronic kidney disease, stage V N18.5
[2024-12-08 13:05] VITALS: BP 160/90; PULSE 96; O2SAT 98; BMI 39.5
[2024-12-08 13:14] LABS: Glucose, Whole Blood 93 mg/dL (60-115)
--- OUTSIDE RECORDS SUMMARY | 2024-12-08 15:10 | XMS_ITS | Data Portability ---
Author Organization [place] - [facility], Allergy Address [address] [facility] [address] [place] [address] Care Team Providers Care Narcotics Agent Name Role Phone MALINDA ROMERO Primary Care Provider [phone] Assessment No assessment recorded. Plan of Treatment Reminders Order Date Submit Date Provider Last Modified By Organization Details Last Modified Time Details Appointments None recorded. Lab None recorded. Referral None recorded. Procedures None recorded. Surgeries None recorded. Imaging None recorded. Medication Orders ipratropium bromide 21 mcg (0.03 %) nasal spray [address] [facility]/Pharmacy #1972, [address] [place], [address], 14:41:58 Patient TargetsNo targets recorded. Patient InstructionsNo instructions recorded. Reason for Referral None Reported. Problems Name Problem SNOMED Code Status Onset Date Resolution Date Notes Provider Name and Address Organization Details Recorded Time Oropharyngeal dysphagia 73568587 Active 2024 CARMEN Herrera MD [address] [place] [address], [place], [address], [place] - [facility] 5 14:35:21 Nasal congestion 79255285 Active 2024 CARMEN Herrera MD [address] [place] [address], [place], [address], [place] [facility] 5 14:35:28 Vasomotor rhinitis 7995369 Active 2024 CARMEN Herrera MD [address] [place] [address], [place], [address], [facility] - [facility] 5 14:40:42 Problem Notes None recorded. Procedures Surgical History Date Name Laterality Status Provider Name and Address Organization Details Recorded Time 09/08/2024 FFL_RE completed CARMEN RIDLEY MD [address] [address], [place], [address], [facility] - [facility] 09/08/2024 14:36:13 Imaging Results None recorded. [...] Available Not Available Not Available amoxicillin 400 mg-aquilino m clavulanate 57 mg/5 mL oral suspension [...] Not Available No t Available CeQur Simplicity Director Institution DIRECTED FOR USE WITH CEQUR INSULIN PATCH active Not Available Not Available No t Available insulin glargine-yf gn (U-100) 100 unit/mL (3 mL) subcutaneou s pen INJECT 26 UNITS SUBCUTANE OUSLY DAILY 09/08 completed Not Available Not Available Not Available FreeStyle Lida 3 [place] USE DIRECTED active Not Available Not Available No t Available FreeStyle Lida 3 Plus Sensor device APPLY DIRECTED EVERY 15 DAYS active Not Available Not Available No t Available Vitals Date Recorded Body height Body mass index (BMI) Body weight Provider Name and Address Organization Details Last Updated DateTime 09/08/2024 167.64 cm 37.6 kg/m2 079502.02 g Gloria Mehta [place] - [facility] 09/08/2024 14:31:30 Social History None recorded. [...] SNOMED-CT Code Diagnosis ICD10 Code Diagnosis Note [id number] CARMEN RIDLEY MD [facility] [address] [address] 09/08/2024 13:59:36 09/08/2024 14:43:43 Oropharyngeal dysphagia 20229281 R13.12 He likely has dysphagia related to his stroke. He has not had any recent pneumonia and seems to be swallowing well although he does clear his throat often. I asked them to let me know if he develops any pneumonia. He has been treated for acid reflux and takes a PPI daily. I recommend he continue this. Nasal congestion 0487306 0 R09.81 Likely due to vasomotor rhinitis I will send a prescripti on for ipratropderecku vinnie Vasomotor rhinitis 02277 03 J30.0 I will send a prescripti [...] HOSPITAL - HEALTH NET PLAN (MEDICAID HMO) AARONPedro Howard Chino [id number] Howard Chino Notes Date Note Type Note [...] 40mg of omeprazole BID. CARMEN RIDLEY MD [address] [place] [address], [place], [address], [facility] - [facility] 09/08/2024 14:44:26
== END 2024-12-08 13:42 | disposition home or self-care (01) ==
LOC: HO.ENCR 13:01
PROVIDERS: PCP Internal Medicine; Visit Provider Internal Medicine
DX: E11.22 Type 2 diabetes mellitus with diabetic chronic kidney disease (principal); N18.32 Chronic kidney disease, stage 3b; Z79.4 Long term (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 of insulin; N18.5 Chronic kidney disease, stage 5; E11.65 Type 2 diabetes mellitus with hyperglycemia

== ENCOUNTER → 2024-12-08 13:00 | Outpatient (BNVA) | payer MEDICARE, MEDICAID, SELFPAY | PROVIDERS: PCP Internal Medicine; Visit Provider Internal Medicine | DX: N18.5 Chronic kidney disease, stage 5 (principal); Z79.4 Long term (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 of insulin | CPT/HCPCS: 82947; 83036; 99212 ==

== ENCOUNTER 2024-12-14 11:41 | Outpatient (AMB) | payer MEDICARE, MEDICAID, SELFPAY ==
--- NOTE | 2024-12-14 11:42 | HO.NEPHOV ---
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 Metabolic acidosis Right foot ulcer Anxiety History of foot ulcer Obesity (BMI 30-39.9) Depression Rotator cuff arthropathy of left shoulder Vitamin D deficiency Allergic rhinitis Anemia Pure hypercholesterolemia Benign essential hypertension Diabetic polyneuropathy Type 2 diabetes mellitus with diabetic chronic kidney disease Erectile dysfunction Type 2 diabetes mellitus with hyperglycemia, with long-term current use of insulin Type 2 diabetes mellitus with diabetic polyneuropathy Type 2 diabetes mellitus with chronic kidney disease 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 LDL goal <70 Surgical History History of eye surgery (~11/2024) History of nasal surgery Family History Father Lung cancer Mother Hypertension Coronary artery disease CVD (cardiovascular disease) TIA (transient ischemic attack) Sister Diabetes Maternal Uncle Diabetes Other Mental health problem Social History Household Members: Family Housing: House Do you presently have visiting nurse or other home services: Yes Alcohol intake: current Alcohol intake frequency: holidays/special occasions only Comment: sister in room Patient Tobacco Use Status: Never used Tobacco e-Cigarette/Vaping Use: Never Used Second Hand Smoke Exposure: Yes service: No Current occupational status: unemployed Current occupational exposures/hazards: No Cognitive needs: Yes (wheelchair, walker) Hearing needs: No Vision needs: No Physical Exam Vital Signs: Last Vital Signs Pulse 88 12/14/24 11:43 BP 148/62 H 12/14/24 11:43 Pulse Ox 95 12/14/24 11:43 Oxygen Delivery Method Room Air 12/14/24 11:43 Assessment & Plan Assessment & Plan (1) ESRD (end stage renal disease): Code(s): N18.6 - End stage renal disease Category: Medical Plan see dialysis EMR for notes Coding Level of Care Code Global (18446) Diagnoses ESRD (end stage renal disease) N18.6
[2024-12-14 11:43] VITALS: BP 148/62; PULSE 88; O2SAT 95
--- OUTSIDE RECORDS SUMMARY | 2024-12-14 12:54 | XMS_ITS | Data Portability ---
Author Organization [place] - [facility], Allergy Address [address] [facility] [address] [place] [phone] Care Team Providers Care Water Treatment Technician Name Role Phone MALINDA ROMERO Primary Care Provider Assessment No assessment recorded. Plan of Treatment Reminders Order Date Submit Date Provider Last Modified By Organization Details Last Modified Time Details Appointments None recorded. Lab None recorded. Referral None recorded. Procedures None recorded. Surgeries None recorded. Imaging None recorded. Medication Orders ipratropium bromide 21 mcg (0.03 %) nasal spray [address] [facility] #[id number], [address] [place], [address], 14:41:58 Patient TargetsNo targets recorded. Patient InstructionsNo instructions recorded. Reason for Referral None Reported. Problems Name Problem SNOMED Code Status Onset Date Resolution Date Notes Provider Name and Address Organization Details Recorded Time Oropharyngeal dysphagia 01489269 Active 2024 CARMEN Herrera MD [address] [place] [address], [place], [phone], [place] - [facility] 5 14:35:21 Nasal congestion 72024124 Active 2024 CARMEN Herrera MD [address] [place] [address], [place], [phone], [place] - [facility] 5 14:35:28 Vasomotor rhinitis 8142417 Active 2024 CARMEN Herrera MD [address] [place] [address], [place], [phone], [facility] - [facility] 5 14:40:42 Problem Notes None recorded. Procedures Surgical History Date Name Laterality Status Provider Name and Address Organization Details Recorded Time 09/08/2024 FFL_RE completed CARMEN RIDLEY MD [address] [address], [place], [phone], [facility] - [facility] 09/08/2024 14:36:13 Imaging Results None recorded. [...] Not Available No t Available CeQur Simplicity Flap Curer DIRECTED FOR USE WITH CEQUR INSULIN PATCH active Not Available Not Available No t Available insulin glargine-yf gn (U-100) 100 unit/mL (3 mL) subcutaneou s pen INJECT 26 UNITS SUBCUTANE OUSLY DAILY 09/08 completed Not Available Not Available Not Available FreeStyle Lida 3 [place] USE DIRECTED active Not Available Not Available No t Available FreeStyle Lida 3 Plus Sensor device APPLY DIRECTED EVERY 15 DAYS active Not Available Not Available No t Available Vitals Date Recorded Body height Body mass index (BMI) Body weight Provider Name and Address Organization Details Last Updated DateTime 09/08/2024 167.64 cm 37.6 kg/m2 069162.02 g Gloria Mehta [place] - [facility] 09/08/2024 14:31:30 Social History None recorded. Functional Status None recorded. Mental Status None recorded. Family History Nothing Reported. Medical History Condition Response Anxiety Y Depression Y Anemia Y Diabetes Y Stroke Y High Cholesterol Y GERD/Reflux Y Hypertension Y Kidney Disease Y Past Encounters Encounter ID Performer Location Encounter Start Date Encounter Closed Date Diagnosis/Indication Diagnosis SNOMED-CT Code Diagnosis ICD10 Code Diagnosis Note [id number] CARMEN RIDLEY MD [facility] [address] [phone] 09/08/2024 13:59:36 09/08/2024 14:43:43 Oropharyngeal dysphagia 86321432 R13.12 He likely has dysphagia related to his stroke. He has not had any recent pneumonia and seems to be swallowing well although he does clear his throat often. I asked them to let me know if he develops any pneumonia. He has been treated for acid reflux and takes a PPI daily. I recommend he continue this. Nasal congestion 5050810 0 R09.81 Likely due to vasomotor rhinitis I will send a prescripti on for ipratropderecku vinnie Vasomotor rhinitis 79672 03 J30.0 I will send a prescripti on for juliann [facility] Concerns Section Related Observation LastModified by Organization Detai ls LastModified Time None Recorded Concern Status LastModified by Organization Details LastModified Time None Recorded Advance Directives Directive None Recorded Payers Insurance Date Sequence Insurance Name Policy Number Policy Saleem Covered Member ID Saleem Member ID Guarantor Name 09/08/[address] [facility] - HEALTH NET PLAN (MEDICAID HMO) AARONPedro Howard Chino [id number] Howard [place] Notes Date Note Type Note [...] 40mg of omeprazole BID. CARMEN RIDLEY MD [address] [place] [address], [place], [phone], [facility] - [facility] 09/08/2024 14:44:26
--- OUTSIDE RECORDS SUMMARY | 2024-12-14 12:54 | XMS_ITS | Clinical Summary ---
Author Organization [address] [facility] Address [address] [place] [address] Phone Care Team Providers Care Russian History Professor Name Role Phone Michael Garcia MD Primary Care Provider Social History Tobacco Use Types Packs/Day Years Used Date Smoking Tobacco: Never Assessed Sex and Gender Information Value Date Recorded Sex Assigned at Male 12/03/2024 11:44 AM EDT Legal Sex Male 10:05 AM EDT Gender Identity Male 12/03/2024 11:44 AM EDT Sexual Orientation Choose not to disclose 2024 11:44 AM EDT Plan of Treatment Upcoming Encounters Date Type Department Care Team (Late st Contact Info) Description 01/12/2025 11:00 AM EDT Evaluation [address] [phone] Zay Graham, PT Health Maintenance Due Date Last Done Comments DTaP,Tdap,and Td Vaccines (1 - Tdap) 1989 Hepatitis B Vaccines (1 of 3 - 19+ 3-dose series) 1989 Pneumococcal Vaccine: 50+ Ye ars (1 of 1 - PCV) 2020 Zoster Vaccines (1 of 2) 2020 COVID-19 Vaccine ( - 2023-2 5 season) 2024 Cholesterol Screening (Lipid Panel) 10/08/2024 Colorectal Cancer Screening: Colonoscopy 10/08/2024 Depression Screening 10/08/2024 HIV Screening 10/08/2024 Hepatitis C Screening 10/08/2024 Medicare Annual Wellness Visit 10/08/2024 Social Influencers of Health Screening 10/08/2024 Influenza Vaccine (Season Ended) 2025 HIB Vaccines Aged Out No longer eligi ble based on patient's age to complete this topic HPV Vaccines Aged Out No longer eligi ble based on patient's age to complete this topic Hepatitis A Vaccines Aged Out No long er eligible based on patient's age to complete this topic IPV Vaccines Aged Out No longer eligi ble based on patient's age to complete this topic MMR Vaccines Aged Out No longer eligi ble based on patient's age to complete this topic Meningococcal ACWY Vaccine Aged Out N o longer eligible based on patient's age to complete this topic Meningococcal B Vaccine Aged Out No l onger eligible based on patient's age to complete this topic Pneumococcal Vaccine: Pediat rics (0 to 5 Years) and At-Risk Patients (6 to 64 Years) Aged Out No longer eligible b ased on patient's age to complete this topic RSV Immunization Patients Un manju 20 months Aged Out No longer eligible b ased on patient's age to complete this topic Varicella Vaccines Aged Out No longer eligible based on patient's age to complete this topic Insurance MEDICA[place] - [place] MEDICARE Care Teams Russian History Professor Relationship Specialty Start Date End Date Michael Garcia MD [address] [place] [address] [address] EMMANUEL Barakat PCP - General Internal Medicine 11/11/24
== END 2024-12-14 11:56 | disposition home or self-care (01) ==
LOC: HO.HKA 11:41
PROVIDERS: PCP Internal Medicine; Visit Provider Internal Medicine Hypertension Specialist
DX: N18.6 End stage renal disease (principal)
CPT/HCPCS: 99024

== ENCOUNTER → 2024-12-14 11:41 | Outpatient (BNVA) | payer MEDICARE, MEDICAID, SELFPAY | PROVIDERS: PCP Internal Medicine; Visit Provider Internal Medicine Hypertension Specialist | DX: E11.22 Type 2 diabetes mellitus with diabetic chronic kidney disease (principal); I12.0 Hypertensive chronic kidney disease with stage 5 chronic kidney disease or end stage renal disease; N18.6 End stage renal disease; D63.1 Anemia in chronic kidney disease; K92.2 Gastrointestinal hemorrhage, unspecified; E55.9 Vitamin D deficiency, unspecified; E11.42 Type 2 diabetes mellitus with diabetic polyneuropathy; F43.21 Adjustment disorder with depressed mood; Z86.73 Personal history of transient ischemic attack (TIA), and cerebral infarction without residual deficits; Z79.4 Long term (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 of insulin; Z79.899 Other long term (current) drug therapy; Z13.30 Encounter for screening examination for mental health and behavioral disorders, unspecified; Z13.31 Encounter for screening for depression | CPT/HCPCS: 96127; 99212 ==

== ENCOUNTER 2024-12-14 13:04 | Outpatient (AMB) | payer MEDICARE, MEDICAID, SELFPAY ==
[2024-12-14 13:07] VITALS: BP 154/86; PULSE 86; O2SAT 97; BMI 40.6
--- NOTE | 2024-12-14 13:07 | MHC.PC.OV ---
Vital Signs 12/14/24 13:07 Height 5 ft 7 in Weight 259 lb 0.69 oz BMI 40.6 BP 154/86 H Blood Pressure Location Lt brachial Position Sitting Pulse 86 Pulse Source Pulse Oximeter Pulse Oximetry (%) 97 Oxygen Delivery Method Room Air Intake Visit Reasons: ESRD, DM, hyperlipidemia Assurance Associate Required: No Accompanied by: Self / Same As Patient Allergies No Known Allergies Allergy (Verified 12/14/24 13:32) Medication List - Last Reconciled 12/14/24 by Michael Garcia MD atorvastatin 80 mg PO DAILY 90 days atropine 1% drps ophthalmic (eye) PRN [Bed pads As directed] blood sugar diagnostic (FreeStyle Lite Strips) As directed tid blood-glucose meter (FreeStyle Lite Meter kit) As directed tid blood-glucose sensor (FreeStyle Lida 3 Plus Sensor device) As directed every 15 days blood-glucose,dryerman/woman,cont (FreeStyle Lida 3 Hustle) As directed bolus insulin pump, 200 unit (CeQur Simplicity) As directed every 4 days brimonidine 0.1% 1 drp ophthalmic-Right TID [Commode As directed] cyclopentolate 0.5% 1 drp ophthalmic (eye) TID cyclopentolate 1% 1 drp ophthalmic-Right BID Dex4 Glucose (dextrose) 15 grams PO .every 15 minutes PRN NS dextrose 40% (Glucose Gel) 15 grams PO Q15M PRN diabetic supplies, miscellan. (CeQur Simplicity Skates Operator) As directed for use with cequr insulin patch dorzolamide-timolol 22.3-6.8 mg/mL 1 drp ophthalmic-Right BID duloxetine 20 mg PO DAILY ergocalciferol (vitamin D2) 1,250 mcg PO QWEEK flash glucose sensor (FreeStyle Lida 14 Day Sensor kit) USE DIRECTED EVERY 2 WEEKS FreeStyle Precision Fred Strips (blood sugar diagnostic) once daily NS furosemide 80 mg PO DAILY hydralazine 100 mg PO TID insulin degludec (Tresiba FlexTouch U-200 insulin) 32 units (0.16 mL) subcut DAILY 90 days insulin lispro subcut insulin lispro 80 -150 5 units on cequr 3 clicks 151-200 6 units 3 clicks 201-250 7-8 units 4 clicks 251-300 9-10 units 5 clicks Over 300 12 units 6 clicks Do not take with breakfast 90 days lactulose 20 grams (30 mL) PO BID lancets (FreeStyle Lancets) 3 times a day prn to confirm glucose sensor latanoprost 0.005% drps ophthalmic (eye) losartan 50 mg PO DAILY metolazone 5 mg PO Q OTHER DAY 7 days mirtazapine 30 mg PO DAILY moxifloxacin 0.5% drps ophthalmic (eye) omeprazole 40 mg PO BID 90 days oxycodone 5 mg PO BID-TID PRN 28 days peg 3350-electrolytes 236-22.74-6.74 -5.86 gram (Golytely) 240 mL PO Q10M pen needle, diabetic (BD Ultra-Fine Odette Pen Needle) 1 ea subcut QID ancelmo.dialysis 28-icodex 7.5% (Extraneal 7.5 %) mL intraperitoneal prednisolone acetate 1% 1 drp ophthalmic (eye) TID sennosides-docusate sodium 8.6-50 mg (Senexon-S) 1 tab PO BEDTIME PRN Shower Chair As directed walker As directed Tobacco use date assessed: 12/14/24 Dental Screening Dental Screen Date: 12/14/24 Did you have a dental visit in the last 12 months?: Yes Did you have a dental problem in the last 6 months where you did not have access to dental care?: No Was dental information given to patient?: Patient has dentist HPI ESRD, DM, hyperlipidemia HPI Details Patient comes in today for his follow up visit States that he currently feels okay Patient apparently underwent vitrectomy of the right eye with [facility] on 11/16/2024 and he felt that his surgery went well so far He denies any headaches or dizziness Denies any chest pains, no increased SOB No nausea/vomiting, no abdominal pain No change in bowel habits noted He is still on peritoneal dialysis at home regularly He again has not had his follow up labs done prior to his appointment today - he has not had his fasting lipids checked in well over a year now [facility] Medical History Essential hypertension 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 Metabolic acidosis Right foot ulcer Anxiety History of foot ulcer Obesity (BMI 30-39.9) Depression Rotator cuff arthropathy of left shoulder Vitamin D deficiency Allergic rhinitis Anemia Pure hypercholesterolemia Benign essential hypertension Diabetic polyneuropathy Type 2 diabetes mellitus with diabetic chronic kidney disease Erectile dysfunction Type 2 diabetes mellitus with hyperglycemia, with long-term current use of insulin Type 2 diabetes mellitus with diabetic polyneuropathy Type 2 diabetes mellitus with chronic kidney disease 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 LDL goal <70 Surgical History History of eye surgery (~11/2024) History of nasal surgery Family History Father Lung cancer Mother Hypertension Coronary artery disease CVD (cardiovascular disease) TIA (transient ischemic attack) Sister Diabetes Maternal Uncle Diabetes Other Mental health problem Social History Household Members: Family Housing: House Do you presently have visiting nurse or other home services: Yes Alcohol intake: current Alcohol intake frequency: holidays/special occasions only Comment: sister in room Patient Tobacco Use Status: Never used Tobacco e-Cigarette/Vaping Use: Never Used Second Hand Smoke Exposure: Yes service: No Current occupational status: unemployed Current occupational exposures/hazards: No Cognitive needs: Yes (wheelchair, walker) Hearing needs: No Vision needs: No Questionnaire PHQ-9 Over the last 2 weeks, how often have you been bothered by any of the following problems? 1. Little interest or pleasure in doing things: not at all 2. Feeling down, depressed, or hopeless: not at all 3. Trouble falling or staying asleep, or sleeping too much: not at all 4. Feeling tired or having little energy: not at all 5. Poor appetite or overeating: not at all 6. Feeling bad about yourself - or that you are a failure or have let yourself or your family down: not at all 7. Trouble concentrating on things, such as reading the newspaper or watching television: not at all 8. Moving or speaking so slowly that other people could have noticed. Or the opposite - being so fidgety or restless that you have been moving around a lot more than usual: not at all 9. Thoughts that you would be better off or of hurting yourself in some way: not at all Total score: 0 Depression Screening Interpretation: Negative Depression Screening Done: Yes 44262 - PHQ-9 Billing: Yes Source: Developed by Drs. Zay Babb, Genesis Aiken, Tony Garcia and colleagues, with an educational phoenix from [employer]. Thrive Questionnaire Date Thrive assessed: 12/14/24 I am a: Parent/Caregiver What is your living situation today?: I have a steady place to live Within the past 12 months, did the food you bought not last and you didn't have the money to get more?: I choose not to answer this question Within the past 12 months, did you worry whether your food would run out before you got money to buy more?: I choose not to answer this question Do you have trouble paying for medicines?: No Do you have trouble getting transportation to medical appointments?: No Do you have trouble paying your heating and electricity bill?: No Do you have trouble taking care of your child, family member or friend?: No Do you have trouble with day-to-day activities such as bathing, preparing meals, shopping, managing finances, etc.?: No Are you currently unemployed and looking for a job?: No Are you interested in more education?: No Please select the resources that you would like help with: None Currently or been in a relationship where the following occur: No concerns reported THRIVE Score: 0 AUDIT C Alcohol Use Questionnaire (AUDIT-C) 1. How often do you have a drink containing alcohol?: Never 3. How often do you have six or more drinks on one occasion?: Never Total Score: 0 Score Reviewed/Action Taken: Yes ANAHI-7 AMB Questionnaire ANAHI-7 Date ANAHI - 7 assessed: 12/14/24 Feeling nervous, anxious, or on edge: 0 = Not at all Not being able to stop or control worryin = Not at all Worrying too much about different things: 0 = Not at all Trouble relaxin = Not at all Being so restless that it is hard to sit still: 0 = Not at all Becoming easily annoyed or irritable: 0 = Not at all Feeling afraid as if something awful might happen: 0 = Not at all Total ANAHI-7 score (0-4 normal; 5-9 mild; 10-14 moderate; 15-21 severe): 0 Source: Developed by Drs. Zay Babb, Genesis Aiken, Tony Garcia and colleagues, with an educational phoenix from [employer]. Review of Systems Const Denies chills, Denies difficulty sleeping, Reports fatigue, Denies fever(s) and Denies headache(s) ENT Denies dysphagia, Denies dizziness, Denies otalgia, Denies headache(s), Denies neck pain, Denies odynophagia and Denies sore throat Card Denies chest pain, Denies rapid heart rate, Denies palpitations and Denies dyspnea Resp Denies cough, Denies dyspnea and Denies wheezing GI Denies abdominal pain, Denies constipation, Denies dysphagia, Denies diarrhea, Denies nausea, Denies odynophagia and Denies vomiting Denies difficulty urinating, Denies nocturia and Denies urinary frequency Musc Denies back pain, Denies arthralgias and Denies neck pain Skin/Breast Denies rash Neuro Details: (+) chronic pain over both lower extremities, especially in both feet, due to neuropathy; (+) left-sided weakness Reports burning sensations (occasionally, in both feet), Denies dizziness and Denies headache(s) Psych Reports depression Endo Reports fatigue and Denies palpitations Aller/Immun Denies wheezing Physical exam (Primary Care) Vital Signs: Last Vital Signs Pulse 86 12/14/24 13:07 BP 154/86 H 12/14/24 13:07 Pulse Ox 97 12/14/24 13:07 Oxygen Delivery Method Room Air 12/14/24 13:07 BMI result Body Mass Index 40.6 Tobacco/Smoking Status: Tobacco use Status Tobacco use date assessed 12/14/24 12/14/24 13:17 Patient Tobacco Use Status Never used Tobacco 12/14/24 13:17 e-Cigarette/Vaping Use Never Used 12/14/24 13:17 PHQ-9: PHQ-9 Score PHQ-9: Total score 0 12/14/24 13:17 Depression Screening Interpretation: Negative Thrive Assessment: Date of Thrive Assessment Date Thrive assessed 12/14/24 12/14/24 13:17 Currently or been in a relationship where the following occur: No concerns reported Const General: no acute distress and alert HENMT Ears: TM's normal bilaterally and EAC's normal Throat: Yes posterior oropharynx normal and Yes tonsils normal Neck Neck: Yes supple and No lymphadenopathy Thyroid: Thyroid normal Resp Auscultation: clear to auscultation bilaterally, no rales and no wheezes Cardio Rate: regular rate Rhythm: regular rhythm Heart sounds: no murmurs GI Palpation (GI): Soft to palpation and nontender Auscultation: normal bowel sounds General: Yes no CVA tenderness Back/Spine/Pelvis Back: no CVA tenderness Thoracic/Lumbar Spine: No lumbar spinal tenderness Skin Rashes: no rashes Neuro Other: (+) mild residual left-sided weakness Extrem General: Yes no clubbing, cyanosis or edema Coding Level of Care Code Est Pt Level 4 (91290) Complex EM visit Add On G2211 Diagnoses 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 I63.12 Type 2 diabetes mellitus with stage 3b chronic kidney disease, with long-term current use of insulin E11.22; N18.32; Z79.4 Diabetes mellitus intermodal dispatcher insulin use: with intermodal dispatcher use Chronic kidney disease stage: stage 3 (moderate) Chronic kidney disease stage 3 subtype: stage 3b (GFR 30-44) ESRD (end stage renal disease) N18.6 Anemia due to stage 5 chronic kidney disease, not on chronic dialysis N18.5; D63.1 Chronic kidney disease stage: stage 5, not on chronic dialysis Gastrointestinal hemorrhage, unspecified gastrointestinal hemorrhage type K92.2 GI bleed type/associated pathology: unspecified gastrointestinal hemorrhage type Essential hypertension I10 Vitamin D deficiency E55.9 Diabetic polyneuropathy associated with type 2 diabetes mellitus E11.42 Diabetes mellitus type: type 2 Adjustment disorder with depressed mood F43.21 Adjustment disorder type: with depressed mood Additional Codes PHQ-9 - 21672 - PHQ-9 Billing: Yes ([id number]) Assessment & Plan Assessment & Plan (1) 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: Code(s): I63.12 - Cerebral infarction due to embolism of basilar artery Category: Medical Plan: Brain MRI done on 10/29/2023 revealed a large acute infarct involving the left ANIMAL ASSISTED THERAPIST territory, with also multiple embolic infarcts bilaterally S/P home PT and OT; patient also completed outpatient PT at [facility] He currently still has some dysphagia as well as mild left-sided weakness and requires assistance when ambulating; his mobility is still limited by some weakness and easy fatigability but these have improved slightly overall from before He is presently still on a pureed diet due to his residual dysphagia He was initially started on dual anti-platelet therapy with Aspirin and Plavix on the recommendation of Neurology but patient later developed GI bleeding requiring blood transfusions Both Aspirin and Plavix were stopped and patient is currently still on no anticoagulation or anti-platelet therapy due to his GI bleed Continue Atorvastatin 80 mg QD Will have patient recheck his labs and fasting lipids in 3 months for follow-up - they are advised / cautioned that patient has not really had repeat fasting lipids done in over a year now and should try to get his follow up labs done before his next appointment in 3 months (2) Type 2 diabetes mellitus with diabetic chronic kidney disease: Code(s): E11.22 - Type 2 diabetes mellitus with diabetic chronic kidney disease Category: Medical Qualifiers: Diabetes mellitus intermodal dispatcher insulin use: with intermodal dispatcher use Chronic kidney disease stage: stage 3 (moderate) Chronic kidney disease stage 3 subtype: stage 3b (GFR 30-44) Qualified Code(s): E11.22 - Type 2 diabetes mellitus with diabetic chronic kidney disease; N18.32 - Chronic kidney disease, stage 3b; Z79.4 - intermodal dispatcher (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 of insulin Plan: His in-office HgbA1c was at 7.0% when last checked at the endocrinology office a few days ago (was at 7.2% a few months ago in August 2024) - goal is at least <7.0% Reinforced diabetic diet Continue Tresiba 32 units QD and Cequr with corresponding dosing instructions Follow up with endocrinology as scheduled for continuing management of his diabetes (3) ESRD (end stage renal disease): Code(s): N18.6 - End stage renal disease Category: Medical Plan: Patient is currently still doing peritoneal dialysis at home up to 4 times a day Follow-up with nephrology as scheduled (4) Anemia due to chronic kidney disease: Comment: Most likely due to erythropoietin deficiency iron TIBC ferritin B12 and folate are normal epogen injection administered today, 20,000 units Code(s): N18.9 - Chronic kidney disease, unspecified; D63.1 - Anemia in chronic kidney disease Category: Medical Qualifiers: Chronic kidney disease stage: stage 5, not on chronic dialysis Qualified Code(s): N18.5 - Chronic kidney disease, stage 5; D63.1 - Anemia in chronic kidney disease Plan: Patient has received blood transfusions as well as injections of Epogen while he was in the hospital last year His most recent H/H was at 7.6/23.0 when last checked on 02/05/2024 His family states that he's had other labs drawn regularly since at the dialysis center but we do not have access to any of these results Per Nephrology, he will be restarted on erythropoietin injections only if his H/H drops any further Will have him recheck his CBC in 3 months for follow up (5) GI bleed: Code(s): K92.2 - Gastrointestinal hemorrhage, unspecified Category: Medical Qualifiers: GI bleed type/associated pathology: unspecified gastrointestinal hemorrhage type Qualified Code(s): K92.2 - Gastrointestinal hemorrhage, unspecified Plan: Resolved He remains at high risk for recurrence so anti-platelet therapy was not resumed despite his embolic CVA back in October 2023 Will continue to monitor his CBC closely Continue Omeprazole 40 mg BID Follow up with GI as scheduled (6) Essential hypertension: Code(s): I10 - Essential (primary) hypertension Category: Medical Plan: Reinforced low sodium diet - goal is systolic BP of 120 mm or less Continue Losartan 50 mg QD and Hydralazine 100 mg TID; he is also on Furosemide 80 mg QD but this is more for edema He was taken off his Amlodipine 5 mg by nephrology previously (7) Vitamin D deficiency: Code(s): E55.9 - Vitamin D deficiency, unspecified Category: Medical Plan: Continue Vitamin D3 1000 units QD (8) Diabetic polyneuropathy: Code(s): E11.42 - Type 2 diabetes mellitus with diabetic polyneuropathy Category: Medical Qualifiers: Diabetes mellitus type: type 2 Qualified Code(s): E11.42 - Type 2 diabetes mellitus with diabetic polyneuropathy Plan: Continue Oxycodone 5 mg BID-TID PRN for pain (9) Adjustment disorder: Code(s): F43.20 - Adjustment disorder, unspecified Category: Medical Qualifiers: Adjustment disorder type: with depressed mood Qualified Code(s): F43.21 - Adjustment disorder with depressed mood Plan: Continue Mirtazapine 30 mg Q HS Follow up with psychiatry as scheduled Plan Follow up in 3 months Orders: Orders Hemoglobin A1c 3 Months E11.9 - Type 2 diabetes mellitus without complications Complete Blood Count Auto Diff 3 Months D64.9 - Anemia, unspecified Comprehensive [place]. Panel Fast 3 Months E78.00 - Pure hypercholesterolemia, unspecified TSH reflex Free T4 3 Months E78.00 - Pure hypercholesterolemia, unspecified UA CC w/rflx Micro + Cult 3 Months R30.0 - Dysuria Vitamin D 25-OH Total 3 Months E55.9 - Vitamin D deficiency, unspecified Lipid Panel 3 Months E78.00 - Pure hypercholesterolemia, unspecified Microalbumin, Random (w Creat) 3 Months E11.9 - Type 2 diabetes mellitus without complications Vitamin B12 and Folate 3 Months E53.8 - Deficiency of other specified B group vitamins
== END 2024-12-14 13:47 | disposition home or self-care (01) ==
LOC: HO.HMCH 13:05
PROVIDERS: PCP Internal Medicine; Visit Provider Internal Medicine
DX: I12.0 Hypertensive chronic kidney disease with stage 5 chronic kidney disease or end stage renal disease (principal); E11.22 Type 2 diabetes mellitus with diabetic chronic kidney disease; N18.6 End stage renal disease; Z79.4 Long term (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 of insulin; E11.42 Type 2 diabetes mellitus with diabetic polyneuropathy; I63.12 Cerebral infarction due to embolism of basilar artery; D63.1 Anemia in chronic kidney disease; K92.2 Gastrointestinal hemorrhage, unspecified; E55.9 Vitamin D deficiency, unspecified; F43.21 Adjustment disorder with depressed mood

== ENCOUNTER → 2024-12-14 23:59 | Outpatient (BNV) | payer MEDICARE, MEDICAID, SELFPAY | PROVIDERS: PCP Internal Medicine; Visit Provider Internal Medicine Hypertension Specialist | DX: N18.6 End stage renal disease (principal) | CPT/HCPCS: 90962 ==

== ENCOUNTER 2025-01-17 11:52 | Outpatient (AMB) | payer MEDICARE, MEDICAID, SELFPAY ==
--- NOTE | 2025-01-17 11:53 | HO.NEPHOV ---
Vital Signs 01/17/25 11:54 Height 5 ft 7 in Weight 257 lb BMI 40.2 BP 140/62 H Blood Pressure Location Lt brachial Position Sitting Pulse 82 Pulse Source Pulse Oximeter Pulse Oximetry (%) 97 Oxygen Delivery Method Room Air Intake Visit Reasons: 1mon follow-up w/labs Conf Accountant Machine Processing Required: No Accompanied by: Sister Allergies No Known Allergies Allergy (Verified 01/17/25 11:55) Do you need a note to return to daycare/school/sports/work: No PFSH Medical History Essential hypertension 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 Metabolic acidosis Right foot ulcer Anxiety History of foot ulcer Obesity (BMI 30-39.9) Depression Rotator cuff arthropathy of left shoulder Vitamin D deficiency Allergic rhinitis Anemia Pure hypercholesterolemia Benign essential hypertension Diabetic polyneuropathy Type 2 diabetes mellitus with diabetic chronic kidney disease Erectile dysfunction Type 2 diabetes mellitus with hyperglycemia, with long-term current use of insulin Type 2 diabetes mellitus with diabetic polyneuropathy Type 2 diabetes mellitus with chronic kidney disease 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 LDL goal <70 Surgical History History of eye surgery (~11/2024) History of nasal surgery Family History Father Lung cancer Mother Hypertension Coronary artery disease CVD (cardiovascular disease) TIA (transient ischemic attack) Sister Diabetes Maternal Uncle Diabetes Other Mental health problem Social History Household Members: Family Housing: House Do you presently have visiting nurse or other home services: Yes Alcohol intake: current Alcohol intake frequency: holidays/special occasions only Comment: sister in room Patient Tobacco Use Status: Never used Tobacco e-Cigarette/Vaping Use: Never Used Second Hand Smoke Exposure: Yes service: No Current occupational status: unemployed Current occupational exposures/hazards: No Cognitive needs: Yes (wheelchair, walker) Hearing needs: No Vision needs: No Physical Exam Vital Signs: Last Vital Signs Pulse 82 01/17/25 11:54 BP 140/62 H 01/17/25 11:54 Pulse Ox 97 01/17/25 11:54 Oxygen Delivery Method Room Air 01/17/25 11:54 BMI result Body Mass Index 40.2 Assessment & Plan Assessment & Plan (1) ESRD (end stage renal disease): Code(s): N18.6 - End stage renal disease Category: Medical Plan see dialysis EMR Coding Level of Care Code Global (19854) Diagnoses ESRD (end stage renal disease) N18.6
[2025-01-17 11:54] VITALS: BP 140/62; PULSE 82; O2SAT 97; BMI 40.2
--- OUTSIDE RECORDS SUMMARY | 2025-01-17 12:40 | XMS_ITS | Clinical Summary ---
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 Machine Operator Name Role Phone Michael Garcia MD Primary [...] Care Team (Late st Contact Info) Description 02/11/2025 12:30 PM EDT Evaluation [facility] [address] [phone] Zay Graham, PT 03/01/2025 9:00 AM EDT Consult Orthopedic Surgery [facility] [address] [phone] Cesar Sullivan, DPM [address] [address] Health Maintenance Due Date Last Done Comments Diabetes: Annual GFR (Glomer ular Filtration Rate) 1970 Diabetes: Annual Foot Exam 1980 Diabetes: Annual Retina Eye Exam 1980 DTaP,Tdap,and Td Vaccines (1 - Tdap) 1989 Hepatitis B Vaccines (1 of 3 - 19+ 3-dose series) 1989 Pneumococcal Vaccine: 50+ Ye ars (1 of 2 - PCV) 1989 Zoster Vaccines (1 of 2) 2020 COVID-19 Vaccine (1 - 2023-2 5 season) 2024 Depression Screening 06/16/2024 Cholesterol Screening (Lipid Panel) 10/08/2024 Colorectal Cancer Screening: Colonoscopy 10/08/2024 HIV Screening 10/08/2024 Hepatitis C Screening 10/08/2024 Medicare Annual Wellness Visit 10/08/2024 Social Influencers of Health Screening 10/08/2024 Diabetes: Annual Urine Albumin-Creatinine Ratio (uACR) 01/07/2025 Diabetes: Blood Sugar Contro l Test (HGBA1C) 01/07/2025 Influenza Vaccine (#1) 2025 HIB Vaccines Aged Out No longer [...] to complete this topic Insurance [place] - [place] Care Teams Brick And Tile Making Machine Operator Relationship Specialty Start Date End Date Michael Garcia MD [address] [place] [address] [address] [place] P[place] - General Internal Medicine 11/11/24
== END 2025-01-17 12:15 | disposition home or self-care (01) ==
LOC: HO.HKA 11:53
PROVIDERS: PCP Internal Medicine; Visit Provider Internal Medicine Hypertension Specialist
DX: N18.6 End stage renal disease (principal)
CPT/HCPCS: 99024

== ENCOUNTER → 2025-01-17 11:52 | Outpatient (BNVA) | payer MEDICARE, MEDICAID, SELFPAY | PROVIDERS: PCP Internal Medicine; Visit Provider Internal Medicine Hypertension Specialist | DX: E11.22 Type 2 diabetes mellitus with diabetic chronic kidney disease (principal); I12.9 Hypertensive chronic kidney disease with stage 1 through stage 4 chronic kidney disease, or unspecified chronic kidney disease; N18.6 End stage renal disease | CPT/HCPCS: 99212 ==

== ENCOUNTER 2025-02-04 10:21 | Outpatient (REF) | payer MEDICARE, MEDICAID, SELFPAY ==
--- NOTE | ~2025-02-04 | XR_ITS ---
EXAMINATION: XR KNEE, RIGHT CLINICAL INFORMATION: M25.561 - Pain in right knee COMPARISON: None available. TECHNIQUE: AP lateral and swimmer's projection of the right knee. FINDINGS: No acute cortical disruption or malalignment. Mild joint space narrowing. No suprapatellar bursa joint effusion. No lytic or blastic lesions. Vascular calcifications. XR/XR knee RT 4V IMPRESSION: Mild bicompartmental osteoarthrosis/osteoarthritis. Atherosclerosis disease, peripheral. Electronically signed by: Kevin La MD 02/04/2025 11:48 AM EDT
--- OUTSIDE RECORDS SUMMARY | 2025-02-04 10:24 | XMS_ITS | Clinical Summary ---
Author Organization [facility] Address [address] [place] [address] Phone Care Team Providers Care In Home Sales Representative Name Role Phone Michael Garcia MD Primary [...] Info) Description 02/11/2025 12:30 PM EDT Evaluation [facility] Out[facility] [address] [phone] Zay Graham, PT 03/01/2025 9:00 AM EDT Consult Orthopedic Surgery [facility] [address] [phone] Cesar Sullivan, DPM [address] [address] Health Maintenance Due Date Last Done Comments [...] to complete this topic Insurance [place] Care Teams In Home Sales Representative Relationship Specialty Start Date End Date Michael Garcia MD [address] [place] [address] Dr [address] [place] PCP - General Internal Medicine 11/11/24
== END 2025-02-04 10:22 | disposition home or self-care (01) ==
LOC: HO.XRAY 10:21
PROVIDERS: PCP Internal Medicine; Visit Provider Internal Medicine
DX: M25.561 Pain in right knee (principal)
CPT/HCPCS: 73564

== ENCOUNTER → 2025-02-04 10:26 | Outpatient (BNV) | payer MEDICARE, MEDICAID, SELFPAY | PROVIDERS: PCP Internal Medicine; Visit Provider Radiology Diagnostic Radiology | DX: M17.11 Unilateral primary osteoarthritis, right knee (principal) | CPT/HCPCS: 73564 ==

== ENCOUNTER 2025-03-07 16:10 | Outpatient (AMB) | payer MEDICARE, MEDICAID, SELFPAY ==
--- NOTE | 2025-03-07 16:08 | HO.NEPHOV ---
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 Metabolic acidosis Right foot ulcer Anxiety History of foot ulcer Obesity (BMI 30-39.9) Depression Rotator cuff arthropathy of left shoulder Vitamin D deficiency Allergic rhinitis Anemia Pure hypercholesterolemia Benign essential hypertension Diabetic polyneuropathy Type 2 diabetes mellitus with diabetic chronic kidney disease Erectile dysfunction Type 2 diabetes mellitus with hyperglycemia, with long-term current use of insulin Type 2 diabetes mellitus with diabetic polyneuropathy Type 2 diabetes mellitus with chronic kidney disease 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 LDL goal <70 Surgical History History of eye surgery (~11/2024) History of nasal surgery Family History Father Lung cancer Mother Hypertension Coronary artery disease CVD (cardiovascular disease) TIA (transient ischemic attack) Sister Diabetes Maternal Uncle Diabetes Other Mental health problem Social History Household Members: Family Housing: House Do you presently have visiting nurse or other home services: Yes Alcohol intake: current Alcohol intake frequency: holidays/special occasions only Comment: sister in room Patient Tobacco Use Status: Never used Tobacco e-Cigarette/Vaping Use: Never Used Second Hand Smoke Exposure: Yes service: No Current occupational status: unemployed Current occupational exposures/hazards: No Cognitive needs: Yes (wheelchair, walker) Hearing needs: No Vision needs: No Physical Exam Vital Signs: BMI result Body Mass Index 8.3 Assessment & Plan Assessment & Plan (1) ESRD (end stage renal disease): Code(s): N18.6 - End stage renal disease Category: Medical Plan see dialysis emr Coding Level of Care Code Global (19362) Diagnoses ESRD (end stage renal disease) N18.6
[2025-03-07 16:09] VITALS: BP 120/52; PULSE 92; O2SAT 97
== END 2025-03-07 16:24 | disposition home or self-care (01) ==
LOC: HO.HKA 16:10
PROVIDERS: PCP Internal Medicine; Visit Provider Internal Medicine Hypertension Specialist
DX: N18.6 End stage renal disease (principal)
CPT/HCPCS: 99024

== ENCOUNTER → 2025-03-07 16:10 | Outpatient (BNVA) | payer MEDICARE, MEDICAID, SELFPAY | PROVIDERS: PCP Internal Medicine; Visit Provider Internal Medicine Hypertension Specialist | DX: N18.6 End stage renal disease (principal) | CPT/HCPCS: 99212 ==

== ENCOUNTER 2025-03-16 13:06 | Outpatient (AMB) | payer MEDICARE, MEDICAID, SELFPAY ==
--- NOTE | 2025-03-16 13:26 | A.OFFVIS_ITS ---
Vital Signs 03/16/25 13:30 Height 5 ft 7 in BMI Reason not done Patient refused/unable BP 128/68 Blood Pressure Location Rt brachial Position Sitting Pulse 81 Pulse Source Pulse Oximeter Pulse Oximetry (%) 97 Oxygen Delivery Method Room Air Intake Visit Reasons: T2DM Intake Note: Patient presents today to establish treatment for Type 2 Diabetes Mellitus: Last Diabetic eye exam was on: 09/16/2024, [facility] Last Podiatry exam was on: Does not see a Camera Repair Technician Most recent HbA1c: 6.9%, 03/16/2025 Random Glucose- 175 mg/dL, Today Clay Transporter Required: No Accompanied by: Sister Allergies No Known Allergies Allergy (Verified 03/16/25 13:31) HPI Comments Details: 54 year old type 2 diabetic with CKD on peritoneal dialysis, retinopathy and neuropathy presents for diabetic follow up Med history: DKA, CVA with residual dysphagia, renal failure. anemia Current medications Tresiba 36 units Aspart sliding scale (he was previously using cequr but insurance no longer covers) POC A1C 7.9% from 7.0% 7.2 6.7. GMI 7.1% TGT 60%, 32% high 8% low. Lows primarily 3am-12 pm Everytime patient has hypoglycemia on CGM the reading is not in hypoglycemic range on fingerstick LDL is due-he is on statin On losartan 50mg twice daily He is on peritoneal dialysis ROS CONSTITUTIONAL: Denies weight loss, fever and chills. HEENT: Denies changes in vision and hearing. RESPIRATORY: Denies SOB and cough. CV: Denies palpitations and CP GI: Denies abdominal pain, nausea, vomiting and diarrhea. : Denies dysuria and urinary frequency. MSK: Denies new myalgia and joint pain. SKIN: Denies rash and pruritus. NEUROLOGICAL: Denies headache PSYCHIATRIC: Denies recent changes in mood. PHYSICAL EXAM: GENERAL:using walker no acute distress EYES: EOMI. Anicteric. HENT: Moist mucous membranes. No scleral icterus. No cervical lymphadenopathy. LUNGS: Clear to auscultation bilaterally. CARDIOVASCULAR: Regular rate and rhythm. No murmur. No JVD. ABDOMEN: Soft, non-tender +bs EXTREMITIES: No edema. Non-tender. SKIN: No rashes or lesions. Warm. NEUROLOGIC: No new focal neurological deficits. PSYCHIATRIC: Cooperative. Appropriate mood and affect [facility] Medical History Essential hypertension 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 Metabolic acidosis Right foot ulcer Anxiety History of foot ulcer Obesity (BMI 30-39.9) Depression Rotator cuff arthropathy of left shoulder Vitamin D deficiency Allergic rhinitis Anemia Pure hypercholesterolemia Benign essential hypertension Diabetic polyneuropathy Type 2 diabetes mellitus with diabetic chronic kidney disease Erectile dysfunction Type 2 diabetes mellitus with hyperglycemia, with long-term current use of insulin Type 2 diabetes mellitus with diabetic polyneuropathy Type 2 diabetes mellitus with chronic kidney disease 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 LDL goal <70 Surgical History History of eye surgery (~11/2024) History of nasal surgery Family History Father Lung cancer Mother Hypertension Coronary artery disease CVD (cardiovascular disease) TIA (transient ischemic attack) Sister Diabetes Maternal Uncle Diabetes Other Mental health problem Social History Household Members: Family Housing: House Do you presently have visiting nurse or other home services: Yes Alcohol intake: current Alcohol intake frequency: holidays/special occasions only Comment: sister in room Patient Tobacco Use Status: Never used Tobacco e-Cigarette/Vaping Use: Never Used Second Hand Smoke Exposure: Yes service: No Current occupational status: unemployed Current occupational exposures/hazards: No Cognitive needs: Yes (wheelchair, walker) Hearing needs: No Vision needs: No Physical Exam Vital Signs: Last Vital Signs Pulse 81 03/16/25 13:30 BP 128/68 03/16/25 13:30 Pulse Ox 97 03/16/25 13:30 Oxygen Delivery Method Room Air 03/16/25 13:30 Results AMB Hemoglobin A1c AMB Hemoglobin A1c 6.9 % Last Edit by UGO Garcia on 03/16/25 13:40 Results Reviewed Results Reviewed: Laboratory Last Values Glucose (Clinic) 175 mg/dL (60-115) H 03/16/25 13:32 Hgb A1c (Clinic) 6.9 % (4.0-6.0) H 03/16/25 13:37 Assessment & Plan Assessment & Plan (1) Type 2 diabetes mellitus with chronic kidney disease: Code(s): E11.22 - Type 2 diabetes mellitus with diabetic chronic kidney disease Category: Medical Qualifiers: Diabetes mellitus prison insulin use: with prison use Chronic kidney disease stage: stage 3 (moderate) Chronic kidney disease stage 3 subtype: stage 3b (GFR 30-44) Qualified Code(s): E11.22 - Type 2 diabetes mellitus with diabetic chronic kidney disease; N18.32 - Chronic kidney disease, stage 3b; Z79.4 - assistant terminal manager (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 of insulin (2) intermediate (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 of insulin: Code(s): Z79.4 - assistant terminal manager (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 of insulin Category: Medical Plan DM-controlled on current medications His CGM is reading a high percentage of hypoglycemia all of which they check against fingerstick and all of which are falsely low He can continue on his current medications. Should he start to experience valid hypoglycemia they will call Otherwise he can follow up in 3 months or sooner as needed Treat hypoglycemia by rules of 15s Orders: Orders AMB Hemoglobin A1c Today E11.65 - Type 2 diabetes mellitus with hyperglycemia, Z79.4 - intermediate (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 of insulin Medications: Changed From insulin degludec (Tresiba FlexTouch U-200 insulin) 32 units (0.16 mL) subcut DAILY 90 days 14.4 mL 10RF To insulin degludec (Tresiba FlexTouch U-200 insulin) 36 units (0.18 mL) subcut DAILY 18 mL 10RF 90 days Discontinued diabetic supplies, miscellan. (CeQur Simplicity Pipeman) Discontinued Reason: Doctor's Order As directed for use with cequr insulin patch 1 ea 1RF insulin lispro Discontinued Reason: Doctor's Order 80 -150 5 units on cequr 3 clicks 151-200 6 units 3 clicks 201-250 7-8 units 4 clicks 251-300 9-10 units 5 clicks Over 300 12 units 6 clicks Do not take with breakfast 30 mL 3RF 90 days bolus insulin pump, 200 unit (CeQur Simplicity) Discontinued Reason: Doctor's Order As directed every 4 days 8 ea 11RF Coding Level of Care Code Est Pt Level 4 (31650) Diagnoses Type 2 diabetes mellitus with stage 3b chronic kidney disease, with long-term current use of insulin E11.22; N18.32; Z79.4 Diabetes mellitus terminal computer operator insulin use: with terminal computer operator use Chronic kidney disease stage: stage 3 (moderate) Chronic kidney disease stage 3 subtype: stage 3b (GFR 30-44) intermediate (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 of insulin Z79.4
[2025-03-16 13:30] VITALS: BP 128/68; PULSE 81; O2SAT 97
[2025-03-16 13:36] LABS: Glucose, Whole Blood 175 mg/dL (60-115)
--- OUTSIDE RECORDS SUMMARY | 2025-03-16 14:24 | XMS_ITS | Data Portability ---
Author Organization [place] - [facility], Allergy Address [address] [facility] [address] [place] [phone] Care Team Providers Care Briar Cutter Name Role Phone MALINDA ROMERO Primary Care Provider Assessment No assessment recorded. Plan of Treatment Reminders Order Date Submit Date Provider Last Modified By Organization Details Last Modified Time Details Appointments None recorded. Lab None recorded. Referral None recorded. Procedures None recorded. Surgeries None recorded. Imaging None recorded. Medication Orders ipratropium bromide 21 mcg (0.03 %) nasal spray 2024 025 [facility] #[id number], [address] [place], [address], 14:41:58 Patient TargetsNo targets recorded. Patient InstructionsNo instructions recorded. Reason for Referral None Reported. Problems Name Problem SNOMED Code Status Onset Date Resolution Date Notes Provider Name and Address Organization Details Recorded Time Oropharyngeal dysphagia 96601799 Active 2024 CARMEN Herrera MD [address] [place] [address], [place], [phone], [place] - [facility] 5 14:35:21 Nasal congestion 09088780 Active 2024 CARMEN Herrera MD [address] [place] [address], [place], [phone], [place] - [facility] 5 14:35:28 Vasomotor rhinitis 8537661 Active 2024 CARMEN Herrera MD [address] [place] [address], [place], [phone], [facility] - [facility] 5 14:40:42 Problem Notes None recorded. Procedures Surgical History Date Name Laterality Status Provider Name and Address Organization Details Recorded Time 09/08/2024 FFL_RE completed CARMEN RIDLEY MD [address] [address], [place], [phone], [facility] - [facility] 09/08/2024 14:36:13 Imaging Results None recorded. [...] Not Available Not Available Not Available BD Odtete 2nd Gen Pen Needle 32 gauge x 5/32 USE DIRECTED 4 TIMES DAILY active Not Available Not Available No t Available CeQur Simplicity 2 unit device DIRECTED EVERY 4 DAYS active Not Available Not Available No t Available CeQur Simplicity Security Patrol Driver DIRECTED FOR USE WITH CEQUR INSULIN PATCH active Not Available Not Available No t Available insulin glargine-yf gn (U-100) 100 unit/mL (3 mL) subcutaneou s pen INJECT 26 UNITS SUBCUTANE OUSLY DAILY 09/08 completed Not Available Not Available Not Available FreeStyle Lida 3 [place] USE DIRECTED active Not Available Not Available No t Available FreeStyle Lida 3 Plus Sensor device APPLY DIRECTED EVERY 15 DAYS active Not Available Not Available No t Available Vitals Date Recorded Body height Body mass index (BMI) Body weight Provider Name and Address Organization Details Last Updated DateTime 09/08/2024 167.64 cm 37.6 kg/m2 086850.02 g Gloria Mehta [place] - [facility] 09/08/2024 14:31:30 Social History None recorded. Functional Status None recorded. Mental Status None recorded. Family History Nothing Reported. Medical History Condition Response Diabetes Y Anemia Y Anxiety Y High Cholesterol Y GERD/Reflux Y Stroke Y Hypertension Y Depression Y Kidney Disease Y Past Encounters Encounter ID Performer Location Encounter Start Date Encounter Closed Date Diagnosis/Indication Diagnosis SNOMED-CT Code Diagnosis ICD10 Code Diagnosis IMO Codes Diagnosis Note [id number] CARMEN RIDLEY MD [facility] [address] [phone] 09/08/2024 13:59:36 09/08/2024 14:43:43 Oropharyngeal dysphagia 88785849 R13.12 He likely has dysphagia related to his stroke. He has not had any recent pneumonia and seems to be swallowing well although he does clear his throat often. I asked them to let me know if he develops any pneumonia. He has been treated for acid reflux and takes a PPI daily. I recommend he continue this. Nasal congestion 2385503 0 R09.81 Likely due to vasomotor rhinitis I will send a prescripti on for ipratropiu m. Vasomotor rhinitis 56967 03 J30.0 I will send a prescripti on for juliann miramontes. Health Concerns Section Related Observation LastModified by Organization Detai ls LastModified Time None Recorded Concern Status LastModified by Organization Details LastModified Time None Recorded Advance Directives Directive None Recorded Payers Insurance Date Sequence Insurance Name Policy Number Policy Saleem Covered Member ID Saleem Member ID Guarantor Name 09/08/2024 1 [facility] - HEALTH NET PLAN (MEDICAID HMO) AARONPedro Howard Chino [id number] Howard Chino Notes Date Note Type Note Provider Name and Address Organization Details Recorded Time 09/08/2024 text/html ROS as noted in the HPI He presents with nasal congestion and drip. He is always sniffing through his nose, especially when he eats. He had a CVA a year ago and had dysphagia with it. He used to thicken his liquids. Now he tends to clear his throat a lot after he eats. He takes 40mg of omeprazole BID. CARMEN RIDLEY MD [address] [place] [address], [phone], [facility] - [facility] 09/08/2024 14:44:26
--- OUTSIDE RECORDS SUMMARY | 2025-03-16 14:24 | XMS_ITS | Clinical Summary ---
Author Organization [address] [facility] Address [address] [place] [address] Phone Care Team Providers Care Frame Assembler Name Role Phone Michael Garcia MD Primary [...] Upcoming Encounters Date Type Department Care Team ([facility] st Contact Info) Description 05/04/2025 2:00 PM EST Consult Orthopedic Surgery - [place] [address] [phone] Cesar Sullivan, DPM [address] [phone] Health Maintenance Due Date Last Done Comments Diabetes: Annual GFR (Glomer ular Filtration Rate) 1970 Diabetes: Annual Foot Exam 1980 Diabetes: Annual Retina Eye Exam 1980 DTaP,Tdap,and Td Vaccines (1 - Tdap) 1989 Hepatitis B Vaccines (1 of 3 - 19+ 3-dose series) 1989 Pneumococcal Vaccine: 50+ Ye ars (1 of 2 - PCV) 1989 Zoster Vaccines (1 of 2) 2020 Depression Screening 06/16/2024 Cholesterol Screening (Lipid Panel) 10/08/2024 Colorectal Cancer Screening: Colonoscopy 10/08/2024 HIV Screening 10/08/2024 Hepatitis C Screening 10/08/2024 Medicare Annual Wellness Visit 10/08/2024 Social Influencers of Health Screening 10/08/2024 Diabetes: Annual Urine Albumin-Creatinine Ratio (uACR) 01/07/2025 Diabetes: Blood Sugar Contro l Test (HGBA1C) 01/07/2025 COVID-19 Vaccine ( - 2023-2 5 season) 2025 Influenza Vaccine (#1) 2025 RSV Immunization Adult Patie nts (1 - 1-dose 75+ series) 2045 HIB Vaccines Aged Out No longer eligi [...] Insurance MEDICA[place] - [place] MEDICARE Care Teams Frame Assembler Relationship Specialty Start Date End Date Michael Garcia MD [address] [place] [address] [address] [place], [place] PCP - General Internal Medicine 11/11/24
== END 2025-03-16 13:55 | disposition home or self-care (01) ==
LOC: HO.ENCR 13:07
PROVIDERS: PCP Internal Medicine; Visit Provider Internal Medicine
DX: E11.22 Type 2 diabetes mellitus with diabetic chronic kidney disease (principal); N18.32 Chronic kidney disease, stage 3b; Z79.4 Long term (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 of insulin; E11.65 Type 2 diabetes mellitus with hyperglycemia

== ENCOUNTER → 2025-03-16 13:06 | Outpatient (BNVA) | payer MEDICARE, MEDICAID, SELFPAY | PROVIDERS: PCP Internal Medicine; Visit Provider Internal Medicine | DX: E11.22 Type 2 diabetes mellitus with diabetic chronic kidney disease (principal); E11.65 Type 2 diabetes mellitus with hyperglycemia; N18.32 Chronic kidney disease, stage 3b; E11.42 Type 2 diabetes mellitus with diabetic polyneuropathy; E11.319 Type 2 diabetes mellitus with unspecified diabetic retinopathy without macular edema; Z79.4 Long term (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 of insulin | CPT/HCPCS: 82947; 83036; 99212 ==

== ENCOUNTER 2025-04-19 11:05 | Outpatient (AMB) | payer MEDICARE, MEDICAID, SELFPAY ==
--- NOTE | 2025-04-19 11:06 | HO.NEPHOV_ITS ---
Vital Signs 04/19/25 11:07 Height 5 ft 7 in BP 118/58 L Blood Pressure Location Rt brachial Position Sitting Pulse 80 Pulse Source Pulse Oximeter Pulse Oximetry (%) 98 Oxygen Delivery Method Room Air Intake Visit Reasons: Rscng missed appt Multigraph Operator Required: No Accompanied by: Family/Other Allergies No Known Allergies Allergy (Verified 04/19/25 11:08) Medication List - Last Reconciled 04/19/25 by Stone Ulloa MD atorvastatin 80 mg PO DAILY 90 days B complex-vitamin C-folic acid 0.8 mg (Em-Reinlado) 1 tab PO DAILY [Bed pads As directed] blood-glucose meter (FreeStyle Lite Meter kit) As directed tid blood-glucose sensor (FreeStyle Lida 3 Plus Sensor device) As directed every 15 days blood-glucose,business systems consultant,cont (FreeStyle Lida 3 [place]) As directed [Commode As directed] Dex4 Glucose (dextrose) 15 grams PO .every 15 minutes PRN NS dextrose 40% (Glucose Gel) 15 grams PO Q15M PRN dorzolamide-timolol 22.3-6.8 mg/mL 1 drp ophthalmic-Right BID duloxetine 30 mg PO QAM flash glucose sensor (FreeStyle Lida 14 Day Sensor kit) USE DIRECTED EVERY 2 WEEKS FreeStyle Lite Strips (blood sugar diagnostic) three times daily NS FreeStyle Precision Fred Strips (blood sugar diagnostic) once daily NS furosemide 80 mg PO DAILY hydralazine 100 mg PO BID hydrocortisone 2.5% topical BID PRN insulin aspart U-100 1 sliding scale dose subcut USEASDIRECTD insulin degludec (Tresiba FlexTouch U-100 insulin) 36 units subcut DAILY lactulose 20 grams PO DAILY PRN lancets (FreeStyle Lancets) 3 times a day prn to confirm glucose sensor latanoprost 0.005% drps ophthalmic (eye) losartan 50 mg PO BID metolazone TAKE 1 TABLET BY MOUTH EVERY OTHER DAY FOR 7 DAYS mirtazapine 30 mg PO BEDTIME mupirocin 2% topical DAILY omeprazole 40 mg PO BID 90 days oxycodone 5 mg PO BID-TID PRN 28 days peg 3350-electrolytes 236-22.74-6.74 -5.86 gram (Golytely) 240 mL PO Q10M pen needle, diabetic (BD Ultra-Fine Odette Pen Needle) 1 ea subcut QID ancelmo.dialysis 28-icodex 7.5% (Extraneal 7.5 %) mL intraperitoneal sennosides (senna) 17.2 mg PO DAILY sennosides-docusate sodium 8.6-50 mg (Senexon-S) 1 tab PO BEDTIME PRN sevelamer carbonate 800 mg PO TID Shower Chair As directed walker As directed [facility] Medical History (Updated 03/30/25 @ 14:13 by Adrienne Vincent NP) ESRD (end stage renal disease) Left-sided weakness Essential hypertension 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 (~03/2024) Metabolic acidosis Right foot ulcer Anxiety History of foot ulcer Obesity (BMI 30-39.9) Depression Rotator cuff arthropathy of left shoulder Vitamin D deficiency Allergic rhinitis Anemia Pure hypercholesterolemia Benign essential hypertension Diabetic polyneuropathy Type 2 diabetes mellitus with diabetic chronic kidney disease Erectile dysfunction Type 2 diabetes mellitus with hyperglycemia, with long-term current use of insulin Type 2 diabetes mellitus with diabetic polyneuropathy Type 2 diabetes mellitus with chronic kidney disease 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 LDL goal <70 Surgical History History of eye surgery (~11/2024) History of nasal surgery Family History Father Lung cancer Mother Hypertension Coronary artery disease CVD (cardiovascular disease) TIA (transient ischemic attack) Sister Diabetes Maternal Uncle Diabetes Other Mental health problem Social History Household Members: Family Housing: House Are you a primary manager primary care to a significant other at home: No Do you presently have visiting nurse or other home services: Yes Alcohol intake: current Alcohol intake frequency: holidays/special occasions only Comment: sister in room Patient Tobacco Use Status: Never used Tobacco e-Cigarette/Vaping Use: Never Used Second Hand Smoke Exposure: Yes service: No Current occupational status: unemployed Current occupational exposures/hazards: No Cognitive needs: Yes (wheelchair, walker) Hearing needs: No Vision needs: No Physical Exam Vital Signs: Last Vital Signs Pulse 80 04/19/25 11:07 BP 118/58 L 04/19/25 11:07 Pulse Ox 98 04/19/25 11:07 Oxygen Delivery Method Room Air 04/19/25 11:07 Assessment & Plan Assessment & Plan (1) Renal failure: Code(s): N19 - Unspecified kidney failure Category: Medical Plan Refer to dialysis EMR for visit note Coding Level of Care Code Global (87238) Diagnoses Renal failure N19
[2025-04-19 11:07] VITALS: BP 118/58; PULSE 80; O2SAT 98
--- OUTSIDE RECORDS SUMMARY | 2025-04-19 13:29 | XMS_ITS | Data Portability ---
Author Organization [place] - [facility], Allergy Address [address] [facility] [address] [place] [phone] Care Team Providers Care Panel Sewer Name Role Phone MALINDA ROMREO Primary Care Provider Assessment No assessment recorded. Plan of Treatment Reminders Order Date Submit Date Provider Last Modified By Organization Details Last Modified Time Details Appointments None recorded. Lab None recorded. Referral None recorded. Procedures None recorded. Surgeries None recorded. Imaging None recorded. Medication Orders ipratropium bromide 21 mcg (0.03 %) nasal spray 2024 025 [facility]/Pharmacy #1972, [address] [place], [address], 14:41:58 Patient TargetsNo targets recorded. Patient InstructionsNo instructions recorded. Reason for Referral None Reported. Problems Name Problem SNOMED Code Status Onset Date Resolution Date Notes Provider Name and Address Organization Details Recorded Time Oropharyngeal dysphagia 45514578 Active 2024 CARMEN Herrera MD [address] [place] [address], [place], [phone], [place] - [facility] 5 14:35:21 Nasal congestion 81112443 Active 2024 CARMEN Herrera MD [address] [place] [address], [place], [phone], [place] - [facility] 5 14:35:28 Vasomotor rhinitis 6761892 Active 2024 CARMEN Herrera MD [address] [place] [address], [place], [phone], [facility] - [facility] 5 14:40:42 Problem Notes None recorded. Procedures Surgical History Date Name Laterality Status Provider Name and Address Organization Details Recorded Time 09/08/2024 FFL_RE completed CARMEN RIDLEY MD [address] [address], [place], [address], [facility] - [facility] [...] Not Available No t Available CeQur Simplicity Utility Engineer DIRECTED FOR USE WITH CEQUR INSULIN PATCH active Not Available Not Available No t Available insulin glargine-yf gn (U-100) 100 unit/mL (3 mL) subcutaneou s pen INJECT 26 UNITS SUBCUTANE OUSLY DAILY 09/08 completed Not Available Not Available Not Available FreeStyle Lida 3 [place] USE DIRECTED active Not Available Not Available No t Available FreeStyle Lida 3 Plus Sensor device APPLY DIRECTED EVERY 15 DAYS active Not Available Not Available No t Available Vitals Date Recorded Body height Body mass index (BMI) Body weight Provider Name and Address Organization Details Last Updated DateTime 09/08/2024 167.64 cm 37.6 kg/m2 225269.02 g Gloria Mehta [place] - [facility] [...] ICD10 Code Diagnosis IMO Codes Diagnosis Note [id number] CARMEN RIDLEY MD [facility] [address] [address] 09/08/2024 13:59:36 09/08/2024 14:43:43 Oropharyngeal dysphagia 69841938 R13.12 He likely has dysphagia related to his stroke. He has not had any recent pneumonia and seems to be swallowing well although he does clear his throat often. I asked them to let me know if he develops any pneumonia. He has been treated for acid reflux and takes a PPI daily. I recommend he continue this. Nasal congestion 9538349 0 R09.81 Likely due to vasomotor rhinitis I will send a prescripti on for ipratropiu m. Vasomotor rhinitis 83726 03 J30.0 I will send a prescripti on for juliann miramontes. Health Concerns Section Related Observation LastModified by Organization Detai ls LastModified Time None Recorded Concern Status LastModified by Organization Details LastModified Time None Recorded Advance Directives Directive None Recorded Payers Insurance Date Sequence Insurance Name Policy Number Policy Saleem Covered Member ID Saleem Member ID Guarantor Name 09/08/2024 1 [facility] - HEALTH NET PLAN (MEDICAID HMO) AARONPedro Howard Chino [id number] Howard Chino Notes Date Note Type Note [...] 40mg of omeprazole BID. CARMEN RIDLEY MD [address] [place] [address], [phone], [facility] - [facility] 09/08/2024 14:44:26
== END 2025-04-19 11:24 | disposition home or self-care (01) ==
LOC: HO.HKA 11:05
PROVIDERS: PCP Internal Medicine; Visit Provider Internal Medicine Hypertension Specialist
DX: N19 Unspecified kidney failure (principal)
CPT/HCPCS: 99024

== ENCOUNTER → 2025-04-19 11:05 | Outpatient (BNVA) | payer MEDICARE, MEDICAID, SELFPAY | PROVIDERS: PCP Internal Medicine; Visit Provider Internal Medicine Hypertension Specialist | DX: N19 Unspecified kidney failure (principal) | CPT/HCPCS: 99212 ==

== ENCOUNTER → 2025-05-16 23:59 | Outpatient (BNV) | payer MEDICARE, MEDICAID, SELFPAY | PROVIDERS: PCP Internal Medicine; Visit Provider Internal Medicine Hypertension Specialist | DX: N18.6 End stage renal disease (principal) | CPT/HCPCS: 90962 ==

== ENCOUNTER 2025-05-20 13:43 | Outpatient (AMB) | payer MEDICARE, MEDICAID, SELFPAY ==
[2025-05-20 13:54] VITALS: BP 130/58; PULSE 81; O2SAT 95; BMI 39.9
--- NOTE | 2025-05-20 13:54 | HO.NEPHOV ---
Vital Signs 05/20/25 13:54 Height 5 ft 7 in Weight 255 lb BMI 39.9 BP 130/58 L Blood Pressure Location Rt brachial Position Sitting Pulse 81 Pulse Source Pulse Oximeter Pulse Oximetry (%) 95 Oxygen Delivery Method Room Air Intake Visit Reasons: 1 mo f/u Pharmacy Resource Tech Required: No Accompanied by: Family/Other Allergies No Known Allergies Allergy (Verified 05/20/25 13:56) Medication List - Last Reconciled 05/20/25 by Stone Ulloa MD atorvastatin 80 mg PO DAILY 90 days B complex-vitamin C-folic acid 0.8 mg (Em-Reinaldo) 1 tab PO DAILY [Bed pads As directed] blood-glucose meter (FreeStyle Lite Meter kit) As directed tid blood-glucose sensor (FreeStyle Lida 3 Plus Sensor device) As directed every 15 days blood-glucose,assistant store manager trainee,cont (FreeStyle Lida 3 [place]) As directed [Commode As directed] Dex4 Glucose (dextrose) 15 grams PO .every 15 minutes PRN NS dextrose 40% (Glucose Gel) 15 grams PO Q15M PRN dorzolamide-timolol 22.3-6.8 mg/mL 1 drp ophthalmic-Right BID duloxetine 30 mg PO QAM flash glucose sensor (FreeStyle Lida 14 Day Sensor kit) USE DIRECTED EVERY 2 WEEKS FreeStyle Lite Strips (blood sugar diagnostic) three times daily NS FreeStyle Precision Fred Strips (blood sugar diagnostic) once daily NS furosemide 80 mg PO DAILY hydrocortisone 2.5% topical BID PRN insulin aspart U-100 1 sliding scale dose subcut USEASDIRECTD insulin degludec (Tresiba FlexTouch U-100 insulin) 36 units subcut DAILY lactulose 20 grams PO DAILY PRN lancets (FreeStyle Lancets) 3 times a day prn to confirm glucose sensor latanoprost 0.005% drps ophthalmic (eye) losartan 50 mg PO BID metolazone TAKE 1 TABLET BY MOUTH EVERY OTHER DAY FOR 7 DAYS mirtazapine 30 mg PO BEDTIME mupirocin 2% topical DAILY omeprazole 40 mg PO BID 90 days oxycodone 5 mg PO BID-TID PRN 28 days peg 3350-electrolytes 236-22.74-6.74 -5.86 gram (Golytely) 240 mL PO Q10M pen needle, diabetic 1 ea subcut QID ancelmo.dialysis 28-icodex 7.5% (Extraneal 7.5 %) mL intraperitoneal sennosides (senna) 17.2 mg PO DAILY sennosides-docusate sodium 8.6-50 mg (Senexon-S) 1 tab PO BEDTIME PRN sevelamer carbonate 800 mg PO TID Shower Chair As directed walker As directed [facility] Medical History (Updated 05/26/25 @ 15:51 by Stone Ulloa MD) ESRD (end stage renal disease) Left-sided weakness Essential hypertension 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 (~03/2024) Metabolic acidosis Right foot ulcer Anxiety History of foot ulcer Obesity (BMI 30-39.9) Depression Rotator cuff arthropathy of left shoulder Vitamin D deficiency Allergic rhinitis Anemia Pure hypercholesterolemia Benign essential hypertension Diabetic polyneuropathy Type 2 diabetes mellitus with diabetic chronic kidney disease Erectile dysfunction Type 2 diabetes mellitus with hyperglycemia, with long-term current use of insulin Type 2 diabetes mellitus with diabetic polyneuropathy Type 2 diabetes mellitus with chronic kidney disease 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 LDL goal <70 Surgical History History of eye surgery (~11/2024) History of nasal surgery Family History Father Lung cancer Mother Hypertension Coronary artery disease CVD (cardiovascular disease) TIA (transient ischemic attack) Sister Diabetes Maternal Uncle Diabetes Other Mental health problem Social History Household Members: Family Housing: House Are you a primary care worker to a significant other at home: No Do you presently have visiting nurse or other home services: Yes Alcohol intake: current Alcohol intake frequency: holidays/special occasions only Comment: sister in room Patient Tobacco Use Status: Never used Tobacco e-Cigarette/Vaping Use: Never Used Second Hand Smoke Exposure: Yes service: No Current occupational status: unemployed Current occupational exposures/hazards: No Cognitive needs: Yes (wheelchair, walker) Hearing needs: No Vision needs: No Physical Exam Vital Signs: Last Vital Signs Pulse 81 05/20/25 13:54 BP 130/58 L 05/20/25 13:54 Pulse Ox 95 05/20/25 13:54 Oxygen Delivery Method Room Air 05/20/25 13:54 BMI result Body Mass Index 39.9 Assessment & Plan Assessment & Plan (1) ESRD (end stage renal disease): Comment: On peritoneal dialysis Code(s): N18.6 - End stage renal disease Category: Medical Plan see hd emr Coding Level of Care Code Global (95833) Diagnoses ESRD (end stage renal disease) N18.6
--- OUTSIDE RECORDS SUMMARY | 2025-05-20 17:57 | XMS_ITS | Data Portability ---
Author Organization [place] - [facility], Allergy Address [address] [facility] [address] [place] [phone] Care Team Providers Care Technical Operations Vice President Name Role Phone MALINDA ROMERO Primary Care Provider Assessment No assessment recorded. Plan of Treatment Reminders Order Date Submit Date Provider Last Modified By Organization Details Last Modified Time Details Appointments None recorded. Lab None recorded. Referral None recorded. Procedures None recorded. Surgeries None recorded. Imaging None recorded. Medication Orders ipratropium bromide 21 mcg (0.03 %) nasal spray 2024 025 [facility]/Pharmacy #1972, [address] [place], [address], 14:41:58 Patient TargetsNo targets recorded. Patient InstructionsNo instructions recorded. Reason for Referral None Reported. Problems Name Problem SNOMED Code Status Onset Date Resolution Date Notes Provider Name and Address Organization Details Recorded Time Oropharyngeal dysphagia 03206106 Active 2024 CARMEN Herrera MD [address] [place] [address], [place], [address], [place] - [facility] 5 14:35:21 Nasal congestion 91973072 Active 2024 CARMEN Herrera MD [address] [place] [address], [place], [address], [place] - [facility] 5 14:35:28 Vasomotor rhinitis 9099518 Active 2024 CARMEN Herrera MD [address] [place] [address], [place], [phone], [facility] - [facility] 5 14:40:42 Problem Notes None recorded. Procedures Surgical History Date Name Laterality Status Provider Name and Address Organization Details Recorded Time 09/08/2024 FFL_RE completed CARMEN RIDLEY MD [address] [address], [place], [address], [facility] - [facility] 09/08/2024 14:36:13 Imaging Results None recorded. [...] Not Available No t Available CeQur Simplicity Enlisted Advisor DIRECTED FOR USE WITH CEQUR INSULIN PATCH active Not Available Not Available No t Available insulin glargine-yf gn (U-100) 100 unit/mL (3 mL) subcutaneou s pen INJECT 26 UNITS SUBCUTANE OUSLY DAILY 09/08 completed Not Available Not Available Not Available FreeStyle Lida 3 [place] USE DIRECTED active Not Available Not Available No t Available FreeStyle Lida 3 Plus Sensor device APPLY DIRECTED EVERY 15 DAYS active Not Available Not Available No t Available Vitals Date Recorded Body height Body mass index (BMI) Body weight Provider Name and Address Organization Details Last Updated DateTime 09/08/2024 167.64 cm 37.6 kg/m2 655516.02 g Gloria Mehta [place] - [facility] 09/08/2024 14:31:30 Social History None recorded. [...] ICD10 Code Diagnosis IMO Codes Diagnosis Note [id number] CARMEN RIDLEY MD [facility] [address] [address] 09/08/2024 13:59:36 09/08/2024 14:43:43 Oropharyngeal dysphagia 70125869 R13.12 He likely has dysphagia related to his stroke. He has not had any recent pneumonia and seems to be swallowing well although he does clear his throat often. I asked them to let me know if he develops any pneumonia. He has been treated for acid reflux and takes a PPI daily. I recommend he continue this. Nasal congestion 6849852 0 R09.81 Likely due to vasomotor rhinitis I will send a prescripti on for ipratropiu m. Vasomotor rhinitis 41151 03 J30.0 I will send a prescripti on for juliann miramontes. Health Concerns Section Related Observation LastModified by Organization Detai ls LastModified Time None Recorded Concern Status LastModified by Organization Details LastModified Time None Recorded Advance Directives Directive None Recorded Payers Insurance Date Sequence Insurance Name Policy Number Policy Saleem Covered Member ID Saleem Member ID Guarantor Name 09/08/[address] [facility] - HEALTH NET PLAN (MEDICAID HMO) AARONPedro Howard Chino [id number] Howard Chino Notes Date Note Type Note [...] 40mg of omeprazole BID. CARMEN RIDLEY MD [address] [place] [address], [phone], [facility] - [facility] 09/08/2024 14:44:26
--- OUTSIDE RECORDS SUMMARY | 2025-05-20 17:57 | XMS_ITS | Clinical Summary ---
Author Organization [facility] Address [address] [place] [address] Phone Care Team Providers Care Business Analyst Consultant Name Role Phone Michael Garcia MD Primary Care Provider [phone] Medications Acetaminophen Extra Strength 500 MG tablet 03/20/2021 Activ e amLODIPine (NORVASC) 10 MG tablet 04/27/2021 Active atorvastatin (LIPITOR) 80 MG tablet Take 1 tablet by mouth at bed time Active cefuroxime (CEFTIN) 500 MG tablet 05/19/2021 Active cephalexin (KEFLEX) 500 MG capsule 03/20/2021 Active cholecalciferol (VITAMIN D-3) 50 MCG (2000 UT) capsule 03/01/2021 Active doxycycline (VIBRA-TABS) 100 MG tablet 03/28/2021 Activ e doxycycline (MONODOX) 100 MG capsule 05/23/2021 Active Trulicity 1.5 MG/0.5ML solution pen-injector 04/16/2021 Active ergocalciferol 1.25 MG (32968 UT) capsule Take 1 capsule by mouth 1 (one) time per week Active ezetimibe (Zetia) 10 MG tablet Take 1 tablet by mouth 1 (one) time each day Active hydrALAZINE (APRESOLINE) 10 MG tablet 05/15/2021 Active ibuprofen (ADVIL,MOTRIN) 800 MG tablet 03/20/2021 Activ e Lantus SoloStar 100 UNIT/ML injection 05/15/2021 Active HumaLOG KWIKPEN 100 UNIT/ML solution pen-injector 04/23/2021 Active levoFLOXacin (LEVAQUIN) 500 MG tablet 02/27/2021 Active lisinopril 20 MG tablet 03/08/2021 Active mupirocin (BACTROBAN) 2 % ointment 04/23/2021 Active metFORMIN (GLUMETZA) 500 MG 24 hr tablet Take 1 tablet by mouth 1 (one) time each day Active oxyCODONE (ROXICODONE) 5 MG immediate release tablet 05/09/2021 Acti ve Active Problems Problem Noted Date Diagnosed Date Chronic kidney disease stage 3 06/04/2021 Essential hypertension 06/04/2021 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 06/04/2021 Osteomyelitis of ankle AND/OR foot 06/04/2021 Renal disorder due to type 2 diabetes mellitus 1 08/05/2020 Family History Medical History Relation Comments Cancer Father cancer-lung Heart disease Mother Stroke Mother Diabetes Sibling Relation Status Comments Father Mother Alive Sibling Social History Tobacco Use Types Packs/Day Years Used Date Smoking Tobacco: Never Alcohol Use Standard Drinks/Week Comments Yes 0 (1 standard drink = 0.6 oz pure alcohol) Alcoholic Drinks/day: Occasional social drink Sex and Gender Information Value Date Recorded Sex Assigned at Not on file Legal Sex Male 4:56 PM EST Gender Identity Not on file Sexual Orientation Not on file Plan of Treatment Upcoming Encounters Date Type Department Care Team (Late st Contact Info) Description 05/25/2025 9:30 AM EST Office Visit [facility] [place] [phone] Health Maintenance Due Date Last Done Comments Hepatitis B Vaccine (1 of 3 - 19+ 3-dose series) 1989 Pneumococcal Vaccine: 50+ Ye ars (1 of 2 - PCV) 1989 Colorectal Cancer Screening: Annual FOBT 2019 Colorectal Cancer Screening: Colonoscopy 2019 Colorectal Cancer Screening: Sigmoidoscopy 2019 Diabetes: Hemoglobin A1C 07/17/2020 Diabetes: Ophthalmology Exam 07/17/2020 Diabetes: Pedal Pulse Checked 07/17/2020 Diabetes: Sensory Foot Exam 07/17/2020 Diabetes: Visual Foot Exam 07/17/2020 Influenza Vaccine Completed 04/08/2025, 03/23/[address] [place] [address] [place] [address] Medicaid Medicare Medicaid [place] Care Teams Business Analyst Consultant Relationship Specialty Start Date End Date Michael Garcia MD [address] [place], [place] [phone] PCP - General 06/26/20
--- OUTSIDE RECORDS SUMMARY | 2025-05-20 17:57 | XMS_ITS | Clinical Summary ---
Author Organization [address] [facility] Address [address] [place] [address] Phone Care Team Providers Care Event Set Up Specialist Name Role Phone Michael Garcia MD Primary Care Provider [phone] Allergies No known active allergies Medications atorvastatin (LIPITOR) 80 mg tablet Take 1 tablet (80 mg total) by mouth 1 (one) time each day. 02/25/20 25 Active atropine 1 % ophthalmic solution PLEASE SEE ATTACHED FOR DETAILED DIRECTIONS 11/04/19 25 Active blood sugar diagnostic (FreeStyle Lite Strips) test strip USE THREE TIMES DAILY 02/24/20 25 Active blood-glucose sensor (FreeStyle Lida 3 Plus Sensor) APPLY DIRECTED EVERY 15 DAYS 09/13/19 25 Active Alphagan P 0.1 % ophthalmic solution INSTILL 1 DROP INTO RIGHT EYE 3 TIMES A DAY 11/24/19 25 Active calcitrioL (ROCALTROL) 0.25 mcg capsule TAKE 1 CAPSULE BY MOUTH THREE DAYS (TIMES) A WEEK 03/14/20 25 Active clotrimazole (MYCELEX) 10 mg faraz DISSOLVE 1 FARAZ IN MOUTH 3 TIMES A DAY 04/20/20 25 Active Glutose-45 40 % gel PLEASE SEE ATTACHED FOR DETAILED DIRECTIONS 08/28/19 25 Active dorzolamide-magdi loL (COSOPT) 22.3-6.8 mg/mL ophthalmic solution instill 1 drop into right eye twice a day 02/23/20 25 Active DULoxetine (CYMBALTA) [address] capsule Take 1 capsule (20 mg total) by mouth 1 (one) time each day in the morning. 01/13/20 25 Active Em-Reinaldo 0.8 mg tablet Take 1 tablet by mouth 1 (one) time each day. 04/28/20 25 Active furosemide (LASIX) 40 mg tablet Take 1 tablet (40 mg total) by mouth 1 (one) time each day. 10/14/19 25 Active hydrALAZINE (APRESOLINE) 100 mg tablet Take 1 tablet (100 mg total) by mouth. 02/18/20 25 Active insulin aspart (NovoLOG FlexPen) 100 unit/mL (3 mL) injection pen PLEASE SEE ATTACHED FOR DETAILED DIRECTIONS 02/22/20 25 Active Tresiba FlexTouch U-200 200 unit/mL (3 mL) CONCENTRATED injection pen INJECT 20 UNIT (0.1 ML) SUBCUTANEOUSLY DAILY 11/07/19 25 Active insulin lispro 100 unit/mL injection PLEASE SEE ATTACHED FOR DETAILED DIRECTIONS 11/17/19 25 Active ipratropium (ATROVENT) 21 mcg (0.03 %) nasal spray SPRAY 2 SPRAYS BY INTRANASAL ROUTE TWICE A DAY 09/09/19 25 Active lactulose (CHRONULAC) solution 15 ML BY MOUTH DAILY FOR CONSTIPATION 07/29/19 25 Active latanoprost (XALATAN) 0.005 % ophthalmic solution 1 DROP INTO RIGHT EYE EVERY NIGHT 10/20/19 25 Active losartan (COZAAR) 25 mg tablet Take 1 tablet (25 mg total) by mouth 1 (one) time each day. 07/26/19 25 Active mirtazapine (REMERON) 15 mg tablet take 1 1/2 tablet by mouth every night at bedtime 09/15/19 25 Active clotrimazole (LOTRIMIN) 1 % cream Apply topically 2 (two) times a day. 30 g 3 05/04/20 25 025 Active Encounters Date Type Department Care Team Description 05/04/2025 2:00 PM EST Consult [facility] [place] [address] [place] [phone] Cesar Sullivan, DPM Dermatophytosis of nail (Primary Dx); Tinea pedis of both feet; Pain in toe of right foot; Pain in toe of left foot; Diabetic mononeuropathy simplex (CMS/HCC V24, CMS/HCC V28); Type II diabetes mellitus with peripheral circulatory disorder (CMS/HCC V24, CMS/[facility] V28); Metatarsalgia of both feet from Last 3 Months Social History Tobacco Use Types Packs/Day Years [...] Care Team (Late st Contact Info) Description 08/04/2025 1:45 PM EST Office Visit Orthopedic Surgery - [place] [address] [phone] Cesar Sullivan, DPM [address] [phone] Health Maintenance Due Date Last Done Comments Colorectal Cancer Screening: Colonoscopy 1970 Diabetes: Annual GFR (Glomerular Filtration Rate) 1970 Diabetes: Annual Foot Exam 1980 Diabetes: Annual Retina Eye Exam 1980 RSV Immunization Adult Patients (1 - Risk 50-74 years 1-dose series) 2020 Zoster Vaccines (1 of 2) 2020 Hepatitis B Vaccines (2 of 2 - CpG 2-dose series) 05/26/2024 04/28/2024 Depression Screening 06/16/2024 Cholesterol Screening (Lipid Panel) 10/08/2024 HIV Screening 10/08/2024 Hepatitis C Screening 10/08/2024 Medicare Annual Wellness Visit 10/08/2024 Social Influencers of Health Screening 10/08/2024 COVID-19 Vaccine ( season) 2025 12/19/2021, 07/02/2021, 11/02/2020, Additional history exists Diabetes: Annual Urine Albumin-Creatinine Ratio (uACR) 05/04/2025 Diabetes: Blood Sugar Control Test (HGBA1C) 05/04/2025 DTaP,Tdap,and Td Vaccines (3 - Td or Tdap) 08/02/2031 08/02/2021, 05/16/2011 Pneumococcal Vaccine: 50+ Years Completed 04/28/2024 Influenza Vaccine Completed 04/08/2025, , 04/16/2021, Additional history exists HIB Vaccines Aged Out No longer eligi [...] to complete this topic RSV Immunization Patients Under 20 months Aged Out No longer eligible based on patient's age to complete this topic Varicella Vaccines Aged Out No longer eligible based on patient's age to complete this topic Insurance [place] - [place] MEDICARE Care Teams Event Set Up Specialist Relationship Specialty Start Date End Date Michael aGrcia MD [address] [place] [address] [address] [place], [place] PCP - General Internal Medicine 11/11/24
== END 2025-05-20 14:14 | disposition home or self-care (01) ==
LOC: HO.HKA 13:44
PROVIDERS: PCP Internal Medicine; Visit Provider Internal Medicine Hypertension Specialist
DX: N18.6 End stage renal disease (principal)
CPT/HCPCS: 99024

== ENCOUNTER → 2025-05-20 13:43 | Outpatient (BNVA) | payer MEDICARE, MEDICAID, SELFPAY | PROVIDERS: PCP Internal Medicine; Visit Provider Internal Medicine Hypertension Specialist | DX: I12.0 Hypertensive chronic kidney disease with stage 5 chronic kidney disease or end stage renal disease (principal); E11.22 Type 2 diabetes mellitus with diabetic chronic kidney disease; N18.6 End stage renal disease; Z99.2 Dependence on renal dialysis; Z79.4 Long term (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 of insulin | CPT/HCPCS: 99212 ==

== ENCOUNTER 2025-05-25 10:49 | Outpatient (AMB) | payer MEDICARE, MEDICAID, SELFPAY ==
--- NOTE | 2025-05-25 10:59 | A.OFFVIS_ITS ---
Vital Signs 05/25/25 11:07 Height 5 ft 6 in Weight 257 lb BMI 41.5 Intake Visit Reasons: Right knee pain Intake Note: Howard is a 55 year old male who presents with complaints of intermittent pain in his right knee. The patient describes his pain as achy in nature. He also reports intermittent discomfort in his left knee. The patient states that he is due to begin formal physical therapy next week at [facility] in [place]. He has tried Tylenol which gives him mild relief. Allergies No Known Allergies Allergy (Verified 05/20/25 13:56) Medication List - Last Reconciled 05/26/25 by Chacorta Agarwal MD atorvastatin 80 mg PO DAILY 90 days B complex-vitamin C-folic acid 0.8 mg (Em-Reinaldo) 1 tab PO DAILY [Bed pads As directed] blood-glucose meter (FreeStyle Lite Meter kit) As directed tid blood-glucose sensor (FreeStyle Lida 3 Plus Sensor device) As directed every 15 days blood-glucose,wealth management advisor,cont (FreeStyle Lida 3 [place]) As directed [Commode As directed] Dex4 Glucose (dextrose) 15 grams PO .every 15 minutes PRN NS dextrose 40% (Glucose Gel) 15 grams PO Q15M PRN dorzolamide-timolol 22.3-6.8 mg/mL 1 drp ophthalmic-Right BID duloxetine 30 mg PO QAM flash glucose sensor (FreeStyle Lida 14 Day Sensor kit) USE DIRECTED EVERY 2 WEEKS FreeStyle Lite Strips (blood sugar diagnostic) three times daily NS FreeStyle Precision Fred Strips (blood sugar diagnostic) once daily NS furosemide 80 mg PO DAILY hydrocortisone 2.5% topical BID PRN insulin aspart U-100 1 sliding scale dose subcut USEASDIRECTD insulin degludec (Tresiba FlexTouch U-100 insulin) 36 units subcut DAILY lactulose 20 grams PO DAILY PRN lancets (FreeStyle Lancets) 3 times a day prn to confirm glucose sensor latanoprost 0.005% drps ophthalmic (eye) losartan 50 mg PO BID metolazone TAKE 1 TABLET BY MOUTH EVERY OTHER DAY FOR 7 DAYS mirtazapine 30 mg PO BEDTIME mupirocin 2% topical DAILY omeprazole 40 mg PO BID 90 days oxycodone 5 mg PO BID-TID PRN 28 days peg 3350-electrolytes 236-22.74-6.74 -5.86 gram (Golytely) 240 mL PO Q10M pen needle, diabetic 1 ea subcut QID ancelmo.dialysis 28-icodex 7.5% (Extraneal 7.5 %) mL intraperitoneal sennosides (senna) 17.2 mg PO DAILY sennosides-docusate sodium 8.6-50 mg (Senexon-S) 1 tab PO BEDTIME PRN sevelamer carbonate 800 mg PO TID Shower Chair As directed walker As directed [facility] Medical History (Updated 05/25/25 @ 12:44 by Chacorta Agarwal MD) ESRD (end stage renal disease) Left-sided weakness Essential hypertension 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 (~03/2024) Metabolic acidosis Right foot ulcer Anxiety History of foot ulcer Obesity (BMI 30-39.9) Depression Rotator cuff arthropathy of left shoulder Vitamin D deficiency Allergic rhinitis Anemia Pure hypercholesterolemia Benign essential hypertension Diabetic polyneuropathy Type 2 diabetes mellitus with diabetic chronic kidney disease Erectile dysfunction Type 2 diabetes mellitus with hyperglycemia, with long-term current use of insulin Type 2 diabetes mellitus with diabetic polyneuropathy Type 2 diabetes mellitus with chronic kidney disease 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 LDL goal <70 Surgical History History of eye surgery (~11/2024) History of nasal surgery Family History Father Lung cancer Mother Hypertension Coronary artery disease CVD (cardiovascular disease) TIA (transient ischemic attack) Sister Diabetes Maternal Uncle Diabetes Other Mental health problem Social History Household Members: Family Housing: House Are you a primary continuum of care manager to a significant other at home: No Do you presently have visiting nurse or other home services: Yes Alcohol intake: current Alcohol intake frequency: holidays/special occasions only Comment: sister in room Patient Tobacco Use Status: Never used Tobacco e-Cigarette/Vaping Use: Never Used Second Hand Smoke Exposure: Yes service: No Current occupational status: unemployed Current occupational exposures/hazards: No Cognitive needs: Yes (wheelchair, walker) Hearing needs: No Vision needs: No Physical Exam Vital Signs: BMI result Body Mass Index 41.5 Extrem Other: Right knee examination shows a minimal effusion, mild crepitus with range of motion, tenderness along his medial joint line, positive Julián's test, no instability Results Reviewed Results Reviewed: X-rays of the patient's right knee show mild diffuse joint space narrowing, no acute bony abnormalities Assessment & Plan Assessment & Plan (1) Left knee pain: Code(s): M25.562 - Pain in left knee Category: Medical (2) Right knee pain: Code(s): M25.561 - Pain in right knee Plan Mr. Chino presents with bilateral knee pains, right greater than left, due to early degenerative joint disease as well as possible medial meniscus tearing. I had a lengthy discussion with the patient regarding the treatment options. The patient wishes to hold off on a cortisone injection for now. He will begin formal physical therapy next week as scheduled. He will contact me prior to his follow-up appointment in 2-3 months should his symptoms worsen in any way. Feel free to call me at any time should questions regarding his orthopedic management arise. Thank you very much for asking me to see this very friendly gentleman. I spent 20 minutes in reviewing the patient's records and imaging studies, s eeing the patient and documenting in the medical record. Orders: Orders XR knee LT 3V 08/11/25 M25.562 - Pain in left knee Coding Level of Care Code New Pt Level 3 (63760) Add On Problem Visit Only Diagnoses Left knee pain M25.562 Right knee pain M25.561
[2025-05-25 11:07] VITALS: BMI 41.5
== END 2025-05-25 11:22 | disposition home or self-care (01) ==
LOC: HO.HOS 10:50
PROVIDERS: PCP Internal Medicine; Visit Provider Orthopaedic Surgery
DX: M25.562 Pain in left knee (principal); M25.561 Pain in right knee
CPT/HCPCS: 99203; G2211

== ENCOUNTER → 2025-05-25 10:49 | Outpatient (BNVA) | payer MEDICARE, MEDICAID, SELFPAY | PROVIDERS: PCP Internal Medicine; Visit Provider Orthopaedic Surgery | DX: M25.562 Pain in left knee (principal); M25.561 Pain in right knee | CPT/HCPCS: 99202 ==

== ENCOUNTER 2025-06-15 09:20 | Outpatient (REF) | payer MEDICARE, MEDICAID, SELFPAY ==
[2025-06-15 11:34] LABS: MANUAL DIFF FLAG NO
[2025-06-15 11:57] LABS: Hematocrit 33.0 % (42.0-52.0); Hemoglobin 11.2 g/dl (14.0-18.0); Imm Gran Abs Auto 0.06 X10*3/uL (0.00-0.03); Imm Gran Pct Auto 0.7 % (0.0-0.4); Lymphocytes Absolute Auto 1.9 X10*3/uL (1.2-4.9); Mean Corpuscular HGB Conc 33.9 g/dl (31.0-36.0); Mean Corpuscular Hemoglobin 33.5 pg (27.0-33.0); Mean Corpuscular Volume 98.8 fL (80.0-98.0); NRBC Abs Auto 0.000 X10*3/uL (0.0-0.012); NRBC Pct Auto 0.0 /100WBC (0.0-0.2); Platelet Count 173 X10*3/uL (160-400); Red Blood Count 3.34 X10*6/uL (4.60-5.80); White Blood Count 8.8 X10*3/uL (4.8-10.8)
[2025-06-15 12:04] LABS: INTERNATIONAL NORM RATIO 0.9 (0.9-1.1); Prothrombin Time 10.7 SEC (11.2-13.5)
[2025-06-15 12:17] LABS: Appearance Urine Clear; Glucose Urine UA 500 mg/dL (Negative); PH 5.0 (5.0-9.0); Specific Gravity - Urine >= 1.030 (1.005-1.025); UMIC TRIGGER UACC YES
[2025-06-15 12:29] LABS: UACC Culture Trigger YES
[2025-06-15 12:42] LABS: Microalbum/Creatinine Ratio Ur 33.6 ug/mg cr (<30)
--- OUTSIDE RECORDS SUMMARY | 2025-06-15 12:42 | XMS_ITS | Data Portability ---
Author Organization [place] - [facility], Allergy Address [address] [facility] [address] [facility] [address] [place] [phone] Care Team Providers Care Plastic Bubble Packer Name Role Phone MALINDA ROMERO Primary Care Provider Assessment No assessment recorded. Plan of Treatment Reminders Order Date Submit Date Provider Last Modified By Organization Details Last Modified Time Details Appointments None recorded. Lab None recorded. Referral None recorded. Procedures None recorded. Surgeries None recorded. Imaging None recorded. Medication Orders ipratropium bromide 21 mcg (0.03 %) nasal spray 2024 025 [facility] #[id number], [address] [place], [address], 14:41:58 Patient TargetsNo targets recorded. Patient InstructionsNo instructions recorded. Reason for Referral None Reported. Problems Name Problem SNOMED Code Status Onset Date Resolution Date Notes Provider Name and Address Organization Details Recorded Time Oropharyngeal dysphagia 85366029 Active 2024 CARMEN Herrera MD [address] [place] [address], [place], [phone], [place] - [facility] 5 14:35:21 Nasal congestion 68856961 Active 2024 CARMEN Herrera MD [address] [place] [address], [place], [phone], [place] - [facility] 5 14:35:28 Vasomotor rhinitis 6572201 Active 2024 CARMEN Herrera MD [address] [place] [address], [place], [phone], [facility] - [facility] 5 14:40:42 Problem Notes None recorded. Procedures Surgical History Date Name Laterality Status Provider Name and Address Organization Details Recorded Time 09/08/2024 FFL_RE completed CARMEN RIDLEY MD [address] [address], [place], [phone], [facility] - [facility] 09/08/2024 14:36:13 Imaging Results None recorded. [...] Not Available No t Available CeQur Simplicity Java Portal Developer DIRECTED FOR USE WITH CEQUR INSULIN PATCH active Not Available Not Available No t Available insulin glargine-yf gn (U-100) 100 unit/mL (3 mL) subcutaneou s pen INJECT 26 UNITS SUBCUTANE OUSLY DAILY 09/08 completed Not Available Not Available Not Available FreeStyle Lida 3 [place] USE DIRECTED active Not Available Not Available No t Available FreeStyle Lida 3 Plus Sensor device APPLY DIRECTED EVERY 15 DAYS active Not Available Not Available No t Available Vitals Date Recorded Body height Body mass index (BMI) Body weight Provider Name and Address Organization Details Last Updated DateTime 09/08/2024 167.64 cm 37.6 kg/m2 326906.02 g Gloria Mehta [place] - [facility] 09/08/2024 14:31:30 Social History None recorded. [...] ICD10 Code Diagnosis IMO Codes Diagnosis Note [id number] CARMEN RIDLEY MD [facility] [address] [phone] 09/08/2024 13:59:36 09/08/2024 14:43:43 Oropharyngeal dysphagia [id number] R13.12 He likely has dysphagia related to his stroke. He has not had any recent pneumonia and seems to be swallowing well although he does clear his throat often. I asked them to let me know if he develops any pneumonia. He has been treated for acid reflux and takes a PPI daily. I recommend he continue this. Nasal congestion [id number] R09.81 Likely due to vasomotor rhinitis I will send a prescripti on for ipratropiu m. Vasomotor rhinitis [id number] 03 J30.0 I will send a prescripti on for juliann miramontes. Health Concerns Section Related Observation LastModified by Organization Detai ls LastModified Time None Recorded Concern Status LastModified by Organization Details LastModified Time None Recorded Advance Directives Directive None Recorded Payers Insurance Date Sequence Insurance Name Policy Number Policy Saleem Covered Member ID Saleem Member ID Guarantor Name 09/08/2024 1 [facility] (MEDICAID HMO) AARONPedro Howard Chino [id number] Howard Chino Notes Date Note Type Note [...] 40mg of omeprazole BID. CARMEN RIDLEY MD [address] [place] [address], [phone], [facility] - [facility] 09/08/2024 14:44:26
[2025-06-15 13:11] LABS: Alanine Aminotransferase 18 U/L (0-40); Albumin Level 3.5 g/dL (3.5-5.0); Alkaline Phosphatase 186 U/L (39-117); Anion Gap 21 (12-20); Aspartate Amino Transferase 25 U/L (5-37); Blood Urea Nitrogen 62 mg/dL (9-16); Calcium 8.6 mg/dL (8.4-10.2); Carbon Dioxide 26 mmol/L (22-29); Chloride 93 mmol/L (96-108); Cholesterol 97 mg/dL (<200); Estimated Glomerular Filt Rate 4; HDL Cholesterol 36 mg/dL (>40); Magnesium 1.8 mg/dL (1.6-2.6); Potassium 5.1 mmol/L (3.3-5.1); Sodium 135 mmol/L (135-145); Total Protein 6.4 g/dL (6.5-8.0); Triglycerides 142 mg/dL (<150)
[2025-06-15 13:14] LABS: Folate > 20.0 ng/mL (> or = 4.0); Vitamin B12 1134 pg/mL (200-900)
== END 2025-06-15 09:21 | disposition home or self-care (01) ==
LOC: HO.LAB 09:20
PROVIDERS: PCP Internal Medicine
DX: Z01.818 Encounter for other preprocedural examination (principal); E78.00 Pure hypercholesterolemia, unspecified; E55.9 Vitamin D deficiency, unspecified; E53.8 Deficiency of other specified B group vitamins; I12.9 Hypertensive chronic kidney disease with stage 1 through stage 4 chronic kidney disease, or unspecified chronic kidney disease; E11.22 Type 2 diabetes mellitus with diabetic chronic kidney disease; N18.32 Chronic kidney disease, stage 3b; D64.9 Anemia, unspecified; R82.90 Unspecified abnormal findings in urine; I63.12 Cerebral infarction due to embolism of basilar artery; Z79.4 Long term (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 of insulin
CPT/HCPCS: 36415; 80053; 80061; 81001; 81003; 82043; 82306; 82570; 82607; 82746; 83036; 83735; 84443; 85025; 85610; 87086; 99212

== ENCOUNTER 2025-06-15 09:20 | Outpatient (AMB) | payer MEDICARE, MEDICAID, SELFPAY ==
--- OUTSIDE RECORDS SUMMARY | 2025-06-15 09:35 | XMS_ITS | Encounter Summary ---
Author Organization [facility], Address [address] [place] [address] Phone Care Team Providers Care Client Representative Name Role Phone Michael Garcia MD Primary Care Provider [phone] Encounter Details Date Type Department Care Team (Late st Contact Info) Description 06/13/2025 Documentation Only [facility] - Vascular Access Center [address] [place] [phone] Anni Osuna [address] [place] [phone] Social History Tobacco Use Types Packs/Day Years Used Date Smoking Tobacco: Never Alcohol Use Standard Drinks/Week Comments Yes 0 (1 standard drink = 0.6 oz pure alcohol) Alcoholic Drinks/day: Occasional social drink Sex and Gender Information Value Date Recorded Sex Assigned at Not on file Legal Sex Male 4:56 PM EST Gender Identity Not on file Sexual Orientation Not on file documented as of this encounter Progress Notes * Anni Osuna - 06/13/2025 10:48 AM EST Pt scheduled for medical clearance on 06/15/25 at 930. Nikki, sister aware. documented in this encounter Plan of Treatment Not on file documented as of this encounter Visit Diagnoses Not on filedocumented in this encounter Care Teams Client Representative Relationship Specialty Start Date End Date Michael Garcia MD [address] [place] [address] PCP - General 06/26/20 documented as of this encounter
--- OUTSIDE RECORDS SUMMARY | 2025-06-15 09:35 | XMS_ITS | Clinical Summary ---
Author Organization [address] [facility] Address [address] [place] [address] Phone Care Team Providers Care Hazardous Materials Handler Name Role Phone Michael Garcia MD Primary Care Provider [phone] Allergies No known active allergies Medications atorvastatin [...] day. 30 g 3 05/04/20 25 025 Encounters Date Type Department Care Team Description 05/04/2025 2:00 PM EST Consult Orthopedic Surgery - [place] [address] [place] [phone] Cesar Sullivan, DPM Dermatophytosis of nail (Primary Dx); Tinea pedis of both feet; Pain in toe of right foot; Pain in toe of left foot; Diabetic mononeuropathy simplex (CMS/HCC V24, CMS/HCC V28); Type II diabetes mellitus with peripheral circulatory disorder (CMS/HCC V24, CMS/HCC V28); Metatarsalgia of both feet from Last [...] PM EST Office Visit Orthopedic Surgery - [place] [address] [phone] Cesar Sullivan, DPM [address] [phone] Health Maintenance Due Date Last [...] Insurance MEDICAID - [place] MEDICARE Care Teams Hazardous Materials Handler Relationship Specialty Start Date End Date Michael Garcia MD [address] [place] [address] [address] [place], [place] PCP - General Internal Medicine 11/11/24
--- OUTSIDE RECORDS SUMMARY | 2025-06-15 09:35 | XMS_ITS | Clinical Summary ---
Author Organization [facility] Address [address] [place] [address] Phone Care Team Providers Care Cloth Winder Name Role Phone Michael Garcia MD Primary Care Provider [phone] Allergies No known active allergies Medications Acetaminophen Extra Strength 500 MG tablet 1 Active amLODIPine (NORVASC) 10 MG tablet 1 Active atorvastatin (LIPITOR) 80 MG tablet Take 1 tablet by mouth at bed time Active cefuroxime (CEFTIN) 500 MG tablet 1 Active cephalexin (KEFLEX) 500 MG capsule 1 Active cholecalcifero l (VITAMIN D-3) 50 MCG (2000 UT) capsule 1 Active doxycycline (VIBRA-TABS) 100 MG tablet 1 Active doxycycline (MONODOX) 100 MG capsule 1 Active Trulicity 1.5 MG/0.5ML solution pen-injector 1 Active ergocalciferol 1.25 MG (22029 UT) capsule Take 1 capsule by mouth 1 (one) time per week Active ezetimibe (Zetia) 10 MG tablet Take 1 tablet by mouth 1 (one) time each day Active hydrALAZINE (APRESOLINE) 10 MG tablet 1 Active ibuprofen (ADVIL,MOTRIN) 800 MG tablet 1 Active Lantus SoloStar 100 UNIT/ML injection 1 Active HumaLOG KWIKPEN 100 UNIT/ML solution pen-injector 1 Active levoFLOXacin (LEVAQUIN) 500 MG tablet 1 Active lisinopril 20 MG tablet 1 Active mupirocin (BACTROBAN) 2 % ointment 1 Active metFORMIN (GLUMETZA) 500 MG 24 hr tablet Take 1 tablet by mouth 1 (one) time each day Active oxyCODONE (ROXICODONE) 5 MG immediate release tablet 1 Active B complex-vitami n C-folic acid (NEPHRO-ANDREA) 0.8 MG tablet Take 1 tablet by mouth in the morning. 5 Active atropine 1 % ophthalmic solution PLEASE SEE ATTACHED FOR DETAILED DIRECTIONS 5 Active Albuterol Sulfate (ProAir RespiClick) 108 (90 Base) MCG/ACT aerosol powder 2 PUFFS INHALED EVERY 4 TO 6 HOURS NEEDED FOR SHORTNESS OF BREATH OR WHEEZING Active brimonidine (Alphagan P) 0.1 % solution INSTILL 1 DROP INTO RIGHT EYE 3 TIMES A DAY 5 Active calcitriol (ROCALTROL) 0.25 MCG capsule Take 0.25 mcg by mouth 3 (three) times a week 5 Active clotrimazole (LOTRIMIN) 1 % cream Apply topically in the morning and in the evening. 5 Active clotrimazole (MYCELEX) [address] 1 Faraz into mouth between cheek and gum in the morning and 1 Faraz at noon and 1 Faraz in the evening. 5 Active dextrose (Glutose 15) 40 % gel PLEASE SEE ATTACHED FOR DETAILED DIRECTIONS 5 Active dorzolamide (TRUSOPT) 2 % ophthalmic solution Administer 1 drop into affected eye(s) in the morning and 1 drop in the evening. 5 Active dorzolamide-ti molol (COSOPT) 2-0.5 % ophthalmic solution instill 1 drop into right eye twice a day Active DULoxetine (CYMBALTA) [address] capsule Take 20 mg by mouth every morning 5 Active furosemide (LASIX) 40 MG tablet Take 40 mg by mouth 1 (one) time each day 5 Active Insulin Aspart FlexPen 100 UNIT/ML solution pen-injector please see attached for detailed directions Active insulin degludec (Tresiba FlexTouch) 200 UNIT/ML injection INJECT 20 UNIT (0.1 ML) SUBCUTANEOUSLY DAILY 5 Active ipratropium (ATROVENT) 0.03 % nasal spray SPRAY 2 SPRAYS BY INTRANASAL ROUTE TWICE A DAY Active lactulose (ENULOSE) 10 GM/15ML solution oral solution Take 15 mL by mouth in the morning. Active latanoprost (XALATAN) 0.005 % ophthalmic solution 1 DROP INTO RIGHT EYE EVERY NIGHT Active losartan (COZAAR) 25 MG tablet Take 25 mg by mouth 1 (one) time each day Active metOLazone 5 MG tablet Take 1 tablet by mouth in the morning. Active mirtazapine (REMERON) 15 MG tablet TAKE 1 1/2 TABLET BY MOUTH EVERY NIGHT AT BEDTIME Active omeprazole (PriLOSEC) [address] capsule Take 40 mg by mouth Active predniSONE (DELTASONE) 20 MG tablet TAKE 2 TABLETS BY MOUTH EVERY DAY FOR 5 DAYS Active Senna-Time 8.6 MG tablet Take 2 tablets by mouth 1 (one) time each day Active sevelamer carbonate (RENVELA) 800 MG tablet Take 800 mg by mouth in the morning and 800 mg at noon and 800 mg in the evening. Take with meals. Active Injection Device for Insulin (CeQur Simplicity Die Lay Out Worker) [facility] DIRECTED FOR USE WITH CEQUR INSULIN PATCH Active docusate sodium (COLACE) 100 MG capsule Take 100 mg by mouth 1 (one) time each day Active senna-docusate (PERICOLACE) 8.6-50 MG per tablet Take 1 tablet by mouth 1 (one) time each day Active Amino Acids (LIQUACEL PO) Take by mouth Ac tive Active Problems Problem Noted Date Diagnosed Date Obese class II 05/25/2025 History of cerebrovascular accident 05/25/2025 Oropharyngeal dysphagia 09/08/2024 Vasomotor rhinitis 09/08/2024 End stage renal disease 03/16/2024 Anxiety disorder 03/12/2024 Male erectile disorder 03/12/2024 Pruritus 03/12/2024 Unspecified injury of muscle (s) and tendon(s) of the rotator cuff of left shoulder, sequela 03/12/2024 Anemia in chronic kidney disease 02/24/2024 Contact with and (suspected) exposure to environmental tobacco smoke (acute) (chronic) 02/24/2024 Dependence on renal dialysis 02/24/2024 Hypertensive chronic kidney disease with stage 5 chronic kidney disease or end stage renal disease 02/24/2024 [facility] current use of insulin 02/24/2024 Major depressive disorder with single episode Personal history of transien t ischemic attack (TIA), and cerebral infarction without residual deficits 02/24/2024 Pure hypercholesterolemia 02/24/2024 Secondary hyperparathyroidism of renal origin Type 2 diabetes mellitus with diabetic polyneuro saundra 02/24/2024 Chronic kidney disease stage 3 06/04/2021 Essential hypertension 06/04/2021 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 06/04/2021 Osteomyelitis of ankle AND/OR foot 06/04/2021 Renal disorder due to type 2 diabetes mellitus 1 08/05/2020 Encounters Date Type Department Care Team Description 06/13/2025 Documentation Only [facility] Vascular Access Center [address] [place] [address] [place] [address] Anni Osuna 05/25/2025 9:30 AM EST Office Visit [facility] Vascular Access [address] [place] [address] Zay Steve MD End stage renal disease (HCC) (Primary Dx) from Last 3 Months Family History Medical History Relation Comments Cancer [...] on file Sexual Orientation Not on file Last Filed Vital Signs Vital Sign Reading Time Taken Comments Blood Pressure 115/75 05/25/2025 10:08 AM EST Pulse 79 05/25/2025 10:08 AM EST Temperature - - Respiratory Rate - - Oxygen Saturation - - Inhaled Oxygen Concentration - - Weight - - Height - - Body Mass Index - - Plan of Treatment Health Maintenance Due Date Last Done Comments [...] Foot Exam 07/17/2020 Influenza Vaccine Completed 04/08/2025, , 04/16/2021, Additional history exists Insurance Medicaid Medicaid Medicare Medicaid [place] Care Teams Cloth Winder Relationship Specialty Start Date End Date Michael Garcia MD [address] [place] [address] [address] [place] [id number] PCP - General 06/26/20
[2025-06-15 09:39] VITALS: BP 114/60; PULSE 79; RESP 18; O2SAT 100; BMI 42.7
--- NOTE | 2025-06-15 09:39 | A.OFFPC_ITS ---
Vital Signs 06/15/25 09:39 Height 5 ft 6 in Weight 264 lb 5.348 oz BMI 42.7 BP 114/60 Blood Pressure Location Lt brachial Position Sitting Respiration 18 Pulse 79 Pulse Source Pulse Oximeter Temp Source Temporal Artery Scan Pulse Oximetry (%) 100 Intake Visit Reasons: Zay Steve?s office catheter port for dialisis Doctor Of Nurse Anesthesia Practice Required: No Accompanied by: sister, director of radio services Allergies No Known Allergies Allergy (Verified 06/15/25 10:02) Medication List - Last Reconciled 06/15/25 by LATRICE Regan atorvastatin 80 mg PO DAILY 90 days [Bed pads As directed] blood-glucose meter (FreeStyle Lite Meter kit) As directed tid blood-glucose sensor (FreeStyle Lida 3 Plus Sensor device) As directed every 15 days blood-glucose,unload associate,cont (FreeStyle Lida 3 [place]) As directed [Commode As directed] Dex4 Glucose (dextrose) 15 grams PO .every 15 minutes PRN NS dextrose 40% (Glucose Gel) 15 grams PO Q15M PRN dorzolamide-timolol 22.3-6.8 mg/mL 1 drp ophthalmic-Right BID duloxetine 30 mg PO QAM flash glucose sensor (FreeStyle Lida 14 Day Sensor kit) USE DIRECTED EVERY 2 WEEKS FreeStyle Lite Strips (blood sugar diagnostic) three times daily NS FreeStyle Precision Fred Strips (blood sugar diagnostic) once daily NS furosemide 120 mg PO DAILY hydrocortisone 2.5% topical BID PRN insulin aspart U-100 1 sliding scale dose subcut USEASDIRECTD insulin degludec (Tresiba FlexTouch U-100 insulin) 36 units (0.36 mL) subcut DAILY lactulose 20 grams PO DAILY PRN lancets (FreeStyle Lancets) 3 times a day prn to confirm glucose sensor latanoprost 0.005% drps ophthalmic (eye) losartan 50 mg PO BID mirtazapine 30 mg PO BEDTIME mupirocin 2% topical DAILY omeprazole 40 mg PO BID 90 days oxycodone 5 mg PO BID-TID PRN 28 days peg 3350-electrolytes 236-22.74-6.74 -5.86 gram (Golytely) 240 mL PO Q10M pen needle, diabetic 1 ea subcut QID ancelmo.dialysis 28-icodex 7.5% (Extraneal 7.5 %) mL intraperitoneal sennosides (senna) 17.2 mg PO DAILY sennosides-docusate sodium 8.6-50 mg (Senexon-S) 1 tab PO BEDTIME PRN sevelamer carbonate 800 mg PO TID Shower Chair As directed walker As directed Tobacco use date assessed: 06/15/25 Dental Screening Dental Screen Date: 06/15/25 Did you have a dental visit in the last 12 months?: Yes Did you have a dental problem in the last 6 months where you did not have access to dental care?: No Was dental information given to patient?: Patient has dentist HPI HPI Comments History of Present Illness Details The patient is a 55 year old male presenting for pre-operative clearance for an arteriovenous (AV) fistula placement in his left arm. The procedure may be performed under general anesthesia. This is in preparation to switch to hemodialysis, which he plans to do at home after a 4-6 week training period. Surgery: Av fistula placement, left arm Surgeon: Dr. Zay Steve Date: No date as yet, family reports that they are waiting for the clearance of the patient The patient has a history of a prolonged QT interval found on a previous EKG. He has not seen a hospice community liaison since a hospitalization almost two years ago. He has a prior history of surgery under general anesthesia with no reported allergic reactions. Regarding his medication history, the patient's furosemide (Lasix) was increased to 120 mg, and metolazone was discontinued. Em-Reinaldo was mistakenly discontinued and will be resumed. He also takes losartan 50 bid for hypertension. The patient isn't on any blood thinners. The patient is on long- acting insulin 36 units, which he was informed to take half of dose=18 units on the day of the procedure. His HbA1c has worsened from 7.2% to 8.0%. He receives monthly lab work at his kidney care center, but the most recent draw in May was incomplete due to difficulty obtaining enough blood. He experiences constipation and uses lactulose as needed to ensure daily bowel movements as required for his dialysis treatment. Health Maintenance - The patient is undergoing pre-operativ e evaluation for an AV fistula for future hemodialysis. - He receives monthly lab monitoring at his kidney care center. - An EKG was performed to assess cardiac status prior to surgery. - Diabetes management was discussed, not ing a recent HbA1c of 8.0% and its impact on healing. Social History - Functional Status: The patient's states he cannot attend jury duty by himself, suggesting a need for assistance with mobility or ADLs. - Home Environment: The patient and his family will receive 4-6 weeks of training to perform hemodialysis at home. - Nutrition: His reports that he b monserrat even eats. Results - EKG: The EKG performed today reveals a prolonged QT interval, which is slightly longer than a previous EKG. - Labs: His recent HbA1c was 8.0%, an in crease from a previous value of 7.2%. [facility] Medical History ESRD (end stage renal disease) Left-sided weakness Essential hypertension 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 (~03/2024) Metabolic acidosis Right foot ulcer Anxiety History of foot ulcer Obesity (BMI 30-39.9) Depression Rotator cuff arthropathy of left shoulder Vitamin D deficiency Allergic rhinitis Anemia Pure hypercholesterolemia Benign essential hypertension Diabetic polyneuropathy Type 2 diabetes mellitus with diabetic chronic kidney disease Erectile dysfunction Type 2 diabetes mellitus with hyperglycemia, with long-term current use of insulin Type 2 diabetes mellitus with diabetic polyneuropathy Type 2 diabetes mellitus with chronic kidney disease 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 LDL goal <70 Surgical History History of eye surgery (~11/2024) History of nasal surgery Family History Father Lung cancer Mother Hypertension Coronary artery disease CVD (cardiovascular disease) TIA (transient ischemic attack) Sister Diabetes Maternal Uncle Diabetes Other Mental health problem Social History Household Members: Family Housing: House Are you a primary acute care registered nurse to a significant other at home: No Do you presently have visiting nurse or other home services: Yes Alcohol intake: current Alcohol intake frequency: holidays/special occasions only Comment: sister in room Patient Tobacco Use Status: Never used Tobacco e-Cigarette/Vaping Use: Never Used Second Hand Smoke Exposure: Yes service: No Current occupational status: unemployed Current occupational exposures/hazards: No Cognitive needs: Yes (wheelchair, walker) Hearing needs: No Vision needs: No Questionnaire PHQ-9 Over the last 2 weeks, how often have you been bothered by any of the following problems? Depression Screening Interpretation: Negative Depression Screening Done: Yes Source: Developed by Drs. Zay Babb, Genesis Aiken, Tony Garcia and colleagues, with an educational phoenix from [employer] Thrive Questionnaire Date Thrive assessed: 12/14/24 I am a: Parent/Caregiver What is your living situation today?: I have a steady place to live Within the past 12 months, did the food you bought not last and you didn't have the money to get more?: I choose not to answer this question Within the past 12 months, did you worry whether your food would run out before you got money to buy more?: I choose not to answer this question Do you have trouble paying for medicines?: No Do you have trouble getting transportation to medical appointments?: No Do you have trouble paying your heating and electricity bill?: No Do you have trouble taking care of your child, family member or friend?: No Do you have trouble with day-to-day activities such as bathing, preparing meals, shopping, managing finances, etc.?: No Are you currently unemployed and looking for a job?: No Are you interested in more education?: No Currently or been in a relationship where the following occur: No concerns reported THRIVE Score: 0 ANAHI-7 AMB Questionnaire ANAHI-7 Date ANAHI - 7 assessed: 12/14/24 Source: Developed by Drs. Zay Babb, Genesis Aiken, Tony Garcia and colleagues, with an educational phoenix from [employer] Review of Systems Narrative Review of Systems - Cardiovascular: Denies chest pain and heart palpitations. - Respiratory: Denies shortness of breath. - Gastrointestinal: Reports use of lactulose for constipation. Denies stomach pain or other changes in bowel habits. - Neurological: Denies dizziness. Const Denies headache(s) and Reports weakness (Left-sided weakness) Eyes Denies loss of vision ENT Denies vertigo, Denies dizziness, Denies headache(s) and Denies sore throat Card Denies chest pain, Reports leg edema (Improves with compression stockings) and Denies lightheadedness Resp Denies cough, Denies hemoptysis and Denies wheezing GI Denies abdominal pain, Denies melena, Reports constipation, Denies diarrhea, Denies vomiting and Reports other (Dialysis catheter in place) Details: End-stage renal does not pee much. Home dialysis Reports other (Oliguria) Musc Denies arthralgias, Denies joint swelling, Reports muscle weakness (Left-sided weakness), Denies numbness, Denies tingling and Reports other (Bilateral leg pain-neuropathy) Neuro Denies Abnormal speech present, Denies behavioral changes, Denies vertigo, Denies dizziness, Denies headache(s), Denies loss of vision, Denies memory loss, Denies numbness, Denies tingling and Reports weakness (Left-sided weakness) Psych Denies anxiety, Denies behavioral changes, Denies depression, Denies memory loss and Denies panic attacks Ashu/Lymph Denies easy bleeding and Denies easy bruising Aller/Immun Denies wheezing Physical exam (Primary Care) Vital Signs: Last Vital Signs Pulse 79 06/15/25 09:39 Resp 18 06/15/25 09:39 BP 114/60 06/15/25 09:39 Pulse Ox 100 06/15/25 09:39 BMI result Body Mass Index 42.7 Tobacco/Smoking Status: Tobacco use Status Tobacco use date assessed 06/15/25 06/15/25 09:59 Patient Tobacco Use Status Never used Tobacco 06/15/25 09:59 e-Cigarette/Vaping Use Never Used 06/15/25 09:59 Depression Screening Interpretation: Negative Thrive Assessment: Date of Thrive Assessment Date Thrive assessed 12/14/24 06/15/25 09:59 Currently or been in a relationship where the following occur: No concerns reported Narrative Physical Exam - Cardiovascular: EKG shows a prolonged QT interval. Const General: healthy appearing, no acute distress, alert and awake Nutritional Appearance: well nourished Orientation/consciousness: oriented to person, oriented to place and oriented to time HENMT Ears: external ears normal General nose exam: Normal external nose present Eyes Conjunctivae: conjunctivae normal Sclerae: sclerae normal Pupils: Equal, round and reactive pupils present Neck Neck: Yes no lymphadenopathy and Yes no JVD Thyroid: Thyroid normal Carotids: no bruits Resp Effort & Inspection: normal respiratory effort and not tachypneic Auscultation: no crackles, no rales, no rhonchi and no wheezes Cardio Rate: regular rate Rhythm: regular rhythm Heart sounds: no murmurs and normal S1 and S2 Peripheral pulses: Peripheral pulses 2+ throughout GI Inspection: Yes obesity and Yes other (Dialysis catheter in place) Palpation (GI): Soft to palpation, nontender, no hepatomegaly and no splenomegaly Auscultation: normal bowel sounds General: Yes no CVA tenderness Back/Spine/Pelvis Back: no CVA tenderness Thoracic/Lumbar Spine: No thoracic spinal tenderness and No lumbar spinal tenderness Skin General skin exam: dry skin Neuro General: oriented to person, oriented to place and oriented to time Cranial nerves: Yes Equal, round and reactive pupils present Speech: No Abnormal speech present Gait exam (Neuro): Antalgic gait present and Assisted gait required Gait assisted method: walker Motor exam (neuro): no tremor noted Extrem Right upper extremity: full ROM Left upper extremity: full ROM (Left arm weakness ) Right lower extremity: full ROM, edema Details: 1+, lower leg and ankle Left lower extremity: full ROM (Left leg weakness), edema Details: 1+, lower leg and ankle Psych Mental Status: mental status grossly normal Speech and movement: Normal speech and movement present Affect: normal affect Attitude: cooperative Thought process: Normal thought process present Results Reviewed Results Reviewed: Laboratory Tests 06/15/25 06/15/25 11:33 11:51 WBC 8.8 RBC 3.34 L D Hgb 11.2 L D Hct 33.0 L D MCV 98.8 H MCH 33.5 H MCHC 33.9 RDW 13.9 Plt Count 173 PT 10.7 L INR 0.9 Sodium 135 Potassium 5.1 D Chloride 93 L Carbon Dioxide 26 Anion Gap 21 H BUN 62 H Creatinine 12.68 H* Fasting Glucose 298 H Estimat Average Glucose 183 Hemoglobin A1c % 8.0 H Calcium 8.6 Magnesium 1.8 Total Bilirubin 0.4 AST 25 ALT 18 Alkaline Phosphatase 186 H Total Protein 6.4 L Albumin 3.5 Triglycerides 142 Cholesterol 97 LDL Cholesterol, Calc 33 HDL Cholesterol 36 L Vitamin B12 1134 H 25-OH Vitamin D Total 13.2 L Folate > 20.0 TSH 2.95 Urine Color Yellow Urine Appearance Clear Urine pH 5.0 Ur Specific [place] >= 1.030 H Urine Protein 30 (1+) H Urine Glucose (UA) 500 H Urine Ketones Trace Urine Blood Negative Urine Nitrite Negative Ur Leukocyte Esterase Trace H Urine RBC 0-2 Urine WBC 6-10 H Ur Squamous Epith Cells 3-5 Urine Bacteria Trace Hyaline Casts 0-2 Urine Creatinine 139.76 Urine Microalbumin 47.0 Microalb/Creat Ratio 33.6 H Coding Level of Care Code Est Pt Level 4 (08067) Diagnoses Preoperative clearance Z01.818 Benign essential hypertension I10 Prolonged QT interval R94.31 Type 2 diabetes mellitus with stage 3b chronic kidney disease, with long-term current use of insulin E11.22; N18.32; Z79.4 Diabetes mellitus intermediate insulin use: with intermediate use Chronic kidney disease stage: stage 3 (moderate) Chronic kidney disease stage 3 subtype: stage 3b (GFR 30-44) ESRD (end stage renal disease) N18.6 Anemia, unspecified type D64.9 Anemia type: unspecified type 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 I63.12 Time Spent (min) 38 Assessment & Plan Assessment & Plan (1) Preoperative clearance: Code(s): Z01.818 - Encounter for other preprocedural examination Category: Medical Plan: The patient is being evaluated for pre-operative clearance for an AV fistula placement for future hemodialysis. Due to an EKG finding of a prolonged QT interval, stat labs are required to evaluate for electrolyte abnormalities, including hypokalemia, hypocalcemia, and hypomagnesemia, which are potential side effects of his furosemide therapy and can cause QT prolongation. Labs were reviewed and the patient was cleared to proceed with surgery. (2) Benign essential hypertension: Code(s): I10 - Essential (primary) hypertension Category: Medical Plan: Blood pressure 114/60 mm Hg-systolic goal less than 130 mm Hg Reinforced low salt diet Continue losartan 50 mg b.i.d., furosemide 120 mg daily (3) Prolonged QT interval: Code(s): R94.31 - Abnormal electrocardiogram [ECG] [EKG] Category: Medical Plan: History of prolonged QT, slight increased from prior study. Electrolytes evaluated and were noted to be normal. The patient is at acceptable risk to proceed with surgery. (4) Type 2 diabetes mellitus with chronic kidney disease: Code(s): E11.22 - Type 2 diabetes mellitus with diabetic chronic kidney disease Category: Medical Qualifiers: Diabetes mellitus termite exterminator helper insulin use: with termite exterminator helper use Chronic kidney disease stage: stage 3 (moderate) Chronic kidney disease stage 3 subtype: stage 3b (GFR 30-44) Qualified Code(s): E11.22 - Type 2 diabetes mellitus with diabetic chronic kidney disease; N18.32 - Chronic kidney disease, stage 3b; Z79.4 - medical terminologist (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 of insulin Plan: The patient's HbA1c has recently increased to 8.0% from 7.2%, indicating worsening glycemic control. While this will not prevent the procedure, the p atient was counseled that elevated glucose levels can impair post-operative wound healing. No changes were made to his diabetes medication regimen at this visit. The patient was encouraged to decrease is sugar/carbohydrate intake. Follow up with Endocrine as scheduled. (5) ESRD (end stage renal disease): Comment: On peritoneal dialysis Code(s): N18.6 - End stage renal disease Category: Medical Plan: Ongoing peritoneal dialysis that was noted to be insufficient, hence, the plan for hemodialysis. Plans for AV fistula formation in left arm. (6) Anemia: Code(s): D64.9 - Anemia, unspecified Category: Medical Qualifiers: Anemia type: unspecified type Qualified Code(s): D64.9 - Anemia, unspecified Plan: H&H 11.2, improved from 7.6/23. Stable We will continue to monitor CBC (7) 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: Onset Date: ~03/2024 Code(s): I63.12 - Cerebral infarction due to embolism of basilar artery Category: Medical Plan: History of stroke with left-sided residual weakness. Continue atorvastatin 80 mg daily and strict blood pressure control. Orders: Orders Complete Blood Count Auto Diff 06/15/25 LATRICE Regan Z01.818 - Encounter for other preprocedural examination Prothrombin Time INR 06/15/25 LATRICE Regan Z01.818 - Encounter for other preprocedural examination AMB Hemoglobin A1c 06/15/25 LATRICE Regan Z13.9 - Encounter for screening, unspecified TSH reflex Free T4 06/15/25 LATRICE Regan Z01.818 - Encounter for other preprocedural examination Magnesium 06/15/25 LATRICE Regan Z01.818 - Encounter for other preprocedural examination Medications: New B complex-vitamin C-folic acid 0.8 mg (Em-Reinaldo) 1 tab PO DAILY 90 tabs 3RF EMEKA Regan-Jennifer Changed From furosemide 80 mg PO DAILY 90 tabs 4RF To furosemide 120 mg PO DAILY Stone Ulloa MD
== END 2025-06-15 12:31 | disposition home or self-care (01) ==
LOC: HO.HMCH 09:21
PROVIDERS: PCP Internal Medicine
DX: E11.22 Type 2 diabetes mellitus with diabetic chronic kidney disease (principal); N18.6 End stage renal disease; Z79.4 Long term (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 of insulin; I63.12 Cerebral infarction due to embolism of basilar artery; Z01.818 Encounter for other preprocedural examination; R94.31 Abnormal electrocardiogram [ECG] [EKG]; D64.9 Anemia, unspecified